=== PATIENT | female | born 1955 | race Caucasian/White ===

== ENCOUNTER 2022-10-19 14:05 | Inpatient (IN) ==
[2022-10-19 15:24] LABS: Basophils # (auto) 0.07 K/uL (0-0.2); Basophils % (auto) 1.2 %; Eosinophils # (auto) 0.13 K/uL (0-0.50); Eosinophils % (auto) 2.2 %; Hematocrit (blood only) 36.6 % (37.0-47.0); Hemoglobin 12.6 g/dl (12.0-16.0); Immature Granulocytes # (auto) 0.01 K/uL (0.01-0.20); Immature Granulocytes % (auto) 0.2 %; Lymphocytes # (auto) 2.43 K/uL (1.2-3.4); Mean Corpuscular Hemoglobin 30.4 pg (25.0-34.0); Mean Corpuscular Hgb Conc 34.4 g/dL (32.0-36.0); Mean Corpuscular Volume 88.4 fL (80.0-100.0); Mean Platelet Volume 9.3 fL (9.4-12.4); Monocytes # (auto) 0.34 K/uL (0.11-0.59); Monocytes % (auto) 5.7 %; Neutrophils # (auto) 2.94 K/uL (1.40-6.50); Neutrophils % (auto) 49.7 %; Platelet Count 202 K/uL (130-400); RDW Coefficient of Variation 13.5 % (11.5-14.5); Red Blood Count 4.14 M/uL (4.20-5.40); White Blood Count 5.92 K/ul (4.8-10.8)
[2022-10-19 15:38] LABS: Partial Thromboplastin Ratio 0.9; Partial Thromboplastin Time 25.3 Seconds (21.0-31.0); Prothrombin Time 10.4 Seconds (9.0-12.0)
--- NOTE | 2022-10-19 16:01 | XRay Report ---
XR chest 1V portable HISTORY: Shortness of breath. COMPARISON: None. FINDINGS: No pneumothorax. No pleural effusions. Small left basilar linear densities favor subsegment al atelectasis or scarring. Otherwise, the lungs are clear. No evidence for pulmonary edema. There is mild eventration of the right hemidiaphragm. The heart is top normal in size. Degenerative changes n oted within the shoulders. IMPRESSION: No acute process. ACT 112: Negative or not required by law. Electronically signed by: Feliciano Vera M.D. 10/19/2022 4:00 PM
[2022-10-19] MEDS ORDERED: LORazepam 2 MG/1 ML VIAL IV STA (16:10)
--- NOTE | 2022-10-19 16:29 | Emergency Department Note ---
Impression & Plan Seizure, Anxiety, Depression with suicidal ideation ED Provider Note NAME: SYED OLIVER AGE: 67 SEX: F : 1955 ARRIVES VIA: Walk-In INFORMANT: Patient, the patient's daughter ED PROVIDER(S): Jagdish Ron DO CHIEF COMPLAINT: Seizure HPI: The patient is a 67-year-old female who presented to the emergency department for an evaluation after having a possible seizure. The patient has a small bite chris to her left lower lip. There was no witnessed seizure. The patient states that she was on the ground and became very paralyzed and could not move. She denies having any nausea or vomiting she does complain of a headache. She also complains of some neck pain. The patient has a long history of anxiety. For about 4 years she has been having a decline according to her family members. She was noted to have some changes in her personality as well as severe anxiety. ROS: See above HPI for pertinent positives & negatives. A total of 10 systems reviewed and were otherwise negative. PAST MEDICAL HISTORY: See Below PAST SURGICAL HISTORY: See Below FAMILY HISTORY: See Below SOCIAL HISTORY: See Below HOME MEDICATIONS: See Below ALLERGIES: See Below VITALS: See Below PHYSICAL EXAMINATION: GENERAL: Patient is awake and alert. She is somewhat anxious appearing. She appears to be guarded. EYES: The conjunctivae are clear. The pupils are round and reactive. EARS, NOSE, MOUTH AND THROAT: The nose is without any evidence of any deformity. Mucous membranes are moist. Small bite was noted to the left lower lip. NECK: The neck is nontender and supple. RESPIRATORY: Normal respiratory effort is noted there is no evidence of wheezing rhonchi or rales CARDIOVASCULAR: Regular rate and rhythm noted there no murmurs rubs or gallops normal S1 normal S2. GASTROINTESTINAL: The abdomen is soft. Abdomen is nontender. MUSCULOSKELETAL/EXTREMITIES: There is no evidence of gross deformity full range of motion is noted in the hips and shoulders. SKIN: There is no obvious evidence of any rash. There are no petechiae, pallor or cyanosis noted. NEUROLOGIC: Patient is awake alert and oriented x3 strength is symmetric patellar reflexes are 2+ bilaterally PSYCH: The patient makes good eye contact mostly evaluation. She is currently denying any suicidal ideation. She appears anxious and guarded. MEDICAL DECISION MAKING: The patient is a 67-year-old female who presented to the emergency department for an evaluation. The patient initially described episodes that she thought could have been related to a seizure. The patient did not have any reported seizure activity. She had a normal neurologic work-up in the emergency department. Her loved one was also concerned because she is been having problems with anxiety as well as suicidal ideation. This was reported after my initial evaluation of the patient. At this time I do feel the patient is medic ally cleared. She was evaluated by the mental health rn case manager hospice. The patient was treated with IV Ativan. The patient was signed out to Dr. Acuna at change of shift. Please see his note for continuation of care and further disposition. Triage Nursing notes reviewed. Prior medical records reviewed Vital Signs: reviewed and remarkable for no significant abnormalities Differential diagnosis: Cardiac ischemia, aortic dissection, pulmonary embolism, pneumothorax, pneumonia, pericarditis, myocarditis, esophageal rupture, GERD, cholecystitis, pancreatitis, musculoskeletal, as well as other pathologies. ER treatment provided: See below Diagnostics interpreted by me: ECG: EKG was obtained in the emergency department. My interpretation is normal sinus rhythm at 80 bpm. There is no ectopy. There is no acute ST segment abnormalities noted. No previous tracing was available. Cardiac Monitoring: An order was placed for continuous cardiac monitoring. The monitor shows a rate of 85 bpm with sinus rhythm. Laboratory studies: As stated above and show below. Imaging studies: See below. Radiographic imaging was reviewed by myself Consultation(s): none Past Med/Surg History Medical History No pertinent family history No pertinent past medical history Surgical History No pertinent past surgical history Social History Smoking Status: Never smoker Feels Safe at Home: Yes Gender Identity: Female Allergies Allergies Allergy/AdvReac Type Severity Reaction Status Date / Time morphine Allergy Vomiting Verified 10/19/22 19:42 prochlorperazine Allergy cant hold Verified 10/19/22 19:42 [From Compazine] head up or talk Home Meds Home Medications Medication Instructions Recorded Confirmed alprazolam 1 mg tablet 1 mg PO TID PRN Anxiety 10/19/22 10/19/22 atorvastatin 40 mg tablet 40 mg PO DAILY 10/19/22 10/19/22 benzonatate 100 mg capsule 100 mg PO TID PRN Cough 10/19/22 10/19/22 celecoxib 200 mg capsule 200 mg PO BID 10/19/22 10/19/22 duloxetine 60 mg capsule,delayed 60 mg PO DAILY 10/19/22 10/19/22 release fexofenadine 180 mg tablet 180 mg PO DAILY PRN allergies 10/19/22 10/19/22 hydrocodone 5 mg-acetaminophen 325 1 tab PO Q6 PRN Pain, Severe 10/19/22 10/19/22 mg tablet hydroxyzine HCl 50 mg tablet 50 mg PO TID 10/19/22 10/19/22 levocetirizine 5 mg tablet 5 mg PO DAILY 10/19/22 10/19/22 lurasidone 20 mg tablet (Latuda) 20 mg PO QAM 10/19/22 10/19/22 omeprazole 40 mg capsule,delayed 40 mg PO DAILYBB 10/19/22 10/19/22 release oxcarbazepine 300 mg tablet 300 mg PO BID 10/19/22 10/19/22 topiramate 50 mg tablet 50 mg PO DAILY 10/19/22 10/19/22 trazodone 100 mg tablet 200 mg PO HS 10/19/22 10/19/22 Results & Data (ED) Vital Signs Vital Signs - 24 hr 10/19/22 14:06 10/19/22 16:42 10/19/22 19:07 Temperature 36.8 C Temperature Source Temporal Artery Scan Pulse Rate 85 Pulse Rate [Apical] 85 Pulse Rate from SpO2 Sensor Respiratory Rate 20 18 Respiratory Effort / Characteristics Non-Labored Spontaneous Non-Labored Spontaneous Non-Labored Spontaneous Respiratory Depth Normal Normal Blood Pressure 134/81 Blood Pressure Mean 98 Pulse Oximetry 96 93 Oxygen Delivery Method Room Air Room Air Room Air Sepsis Recent Fever Within 48 Hours No Sepsis New/Unexplained Change in Mental Status No Sepsis Action Taken by Nursing No Action Required 10/19/22 19:06 Temperature Temperature Source Pulse Rate Pulse Rate [Apical] Pulse Rate from SpO2 Sensor 80 Respiratory Rate Respiratory Effort / Characteristics Respiratory Depth Blood Pressure 143/79 H Blood Pressure Mean 100 Pulse Oximetry 98 Oxygen Delivery Method Sepsis Recent Fever Within 48 Hours Sepsis New/Unexplained Change in Mental Status Sepsis Action Taken by Long Term Medications Current Medication List: was personally reviewed by me Laboratory Data Attestation: I reviewed the patient's lab results. 10/19/22 15:10 10/19/22 15:10 Lab Results 10/19/22 10/19/22 10/19/22 Range/Units 15:10 15:10 15:10 WBC 5.92 (4.8-10.8) K/ul RBC 4.14 L (4.20-5.40) M/uL Hgb 12.6 (12.0-16.0) g/dl Hct 36.6 L (37.0-47.0) % MCV 88.4 (80.0-100.0) fL MCH 30.4 (25.0-34.0) pg MCHC 34.4 (32.0-36.0) g/dL RDW Std Deviation 44.0 (36.4-46.3) fL RDW Coeff of Zonia 13.5 (11.5-14.5) % Plt Count 202 (130-400) K/uL MPV 9.3 L (9.4-12.4) fL Immature Gran % (Auto) 0.2 % Neut % (Auto) 49.7 % Lymph % (Auto) 41.0 % [place] % (Auto) 5.7 % Eos % (Auto) 2.2 % Baso % (Auto) 1.2 % Neut # (Auto) 2.94 (1.40-6.50) K/uL Lymph # (Auto) 2.43 (1.2-3.4) K/uL [place] # (Auto) 0.34 (0.11-0.59) K/uL Eos # (Auto) 0.13 (0-0.50) K/uL Baso # (Auto) 0.07 (0-0.2) K/uL Immature Gran # (Auto) 0.01 (0.01-0.20) K/uL PT 10.4 (9.0-12.0) Seconds INR 1.0 (0.9-1.1) APTT 25.3 (21.0-31.0) Seconds PTT Ratio 0.9 Sodium 140 (136-145) mmol/L Potassium 4.0 (3.5-5.1) mmol/L Chloride 110 H (98-107) mmol/L Carbon Dioxide 23 (21-32) mmol/L Anion Gap 7 (3-11) BUN 21 (6-23) mg/dl Creatinine 0.99 (0.6-1.2) mg/dl Est Cr Clr Drug Dosing Not Reportable Est GFR ( Amer) 67.4 ml/min Est GFR (Non-Af Amer) 58.1 ml/min BUN/Creatinine Ratio 21.2 H (10-20) Glucose 113 H (70-99(Fasting)) mg/dl Calcium 9.2 (8.5-10.1) mg/dl Magnesium 1.9 (1.7-2.4) mg/dl Total Bilirubin 0.3 (0.2-1.0) mg/dl AST 12 L (13-39) U/L ALT 9 (7-52) U/L Alkaline Phosphatase 75 (34-104) U/L Troponin I High Sens (0-14) pg/ml Total Protein 6.4 (6.0-8.3) gm/dl Albumin 3.9 (3.4-5.0) gm/dl Globulin 2.5 (2.5-4.0) gm/dl Albumin/Globulin Ratio 1.6 (0.9-2) Urine Color Urine Appearance (Clear) Urine pH (4.5-7.5) Ur Specific [place] (1.000-1.030) Urine Protein (Negative) Urine Glucose (UA) (Negative) Urine Ketones (Negative) Urine Blood (Negative) Urine Nitrite (Negative) Urine Bilirubin (Negative) Urine Urobilinogen (Negative) Ur Leukocyte Esterase (Negative) Urine WBC (Auto) (0-5) /hpf Urine RBC (Auto) (0-4) /hpf U Hyaline Cast (Auto) (0-5) /lpf U Epithel Cells (Auto) (0-5) /lpf Urine Bacteria (Auto) (Negative) Calcium Oxalate Crystal (None Prsent) Amorphous Sediment (None Prsent) Urine Yeast Urine Opiates Screen (Neg) Ur Methadone, Qual (Neg) Urine Barbiturates (Neg) Ur Phencyclidine (PCP) (Neg) U Amphetamin/Meth Scrn (Neg) MDMA (Ecstasy) Screen (Neg) U Benzodiazepines Scrn (Neg) Ur Cocaine Metabolite (Neg) U Marijuana (THC) Screen (Neg) Ethyl Alcohol mg/dL (<10.0) mg/dl SARS-CoV-2, RNA, NAAT (NEGATIVE) 10/19/22 10/19/22 10/19/22 Range/Units 15:15 16:15 16:15 WBC (4.8-10.8) K/ul RBC (4.20-5.40) M/uL Hgb (12.0-16.0) g/dl Hct (37.0-47.0) % MCV (80.0-100.0) fL MCH (25.0-34.0) pg MCHC (32.0-36.0) g/dL RDW Std Deviation (36.4-46.3) fL RDW Coeff of Zonia (11.5-14.5) % Plt Count (130-400) K/uL MPV (9.4-12.4) fL Immature Gran % (Auto) % Neut % (Auto) % Lymph % (Auto) % [place] % (Auto) % Eos % (Auto) % Baso % (Auto) % Neut # (Auto) (1.40-6.50) K/uL Lymph # (Auto) (1.2-3.4) K/uL [place] # (Auto) (0.11-0.59) K/uL Eos # (Auto) (0-0.50) K/uL Baso # (Auto) (0-0.2) K/uL Immature Gran # (Auto) (0.01-0.20) K/uL PT (9.0-12.0) Seconds INR (0.9-1.1) APTT (21.0-31.0) Seconds PTT Ratio Sodium (136-145) mmol/L Potassium (3.5-5.1) mmol/L Chloride (98-107) mmol/L Carbon Dioxide (21-32) mmol/L Anion Gap (3-11) BUN (6-23) mg/dl Creatinine (0.6-1.2) mg/dl Est Cr Clr Drug Dosing Est GFR ( Amer) ml/min Est GFR (Non-Af Amer) ml/min BUN/Creatinine Ratio (10-20) Glucose (70-99(Fasting)) mg/dl Calcium (8.5-10.1) mg/dl Magnesium (1.7-2.4) mg/dl Total Bilirubin (0.2-1.0) mg/dl AST (13-39) U/L ALT (7-52) U/L Alkaline Phosphatase (34-104) U/L Troponin I High Sens 4.5 (0-14) pg/ml Total Protein (6.0-8.3) gm/dl Albumin (3.4-5.0) gm/dl Globulin (2.5-4.0) gm/dl Albumin/Globulin Ratio (0.9-2) Urine Color Yellow Urine Appearance Cloudy A (Clear) Urine pH 8.0 H (4.5-7.5) Ur Specific [place] 1.017 (1.000-1.030) Urine Protein Negative (Negative) Urine Glucose (UA) Negative (Negative) Urine Ketones Negative (Negative) Urine Blood Negative (Negative) Urine Nitrite Negative (Negative) Urine Bilirubin Negative (Negative) Urine Urobilinogen Negative (Negative) Ur Leukocyte Esterase Trace H (Negative) Urine WBC (Auto) 1-5 (0-5) /hpf Urine RBC (Auto) 0-4 (0-4) /hpf U Hyaline Cast (Auto) 1-5 (0-5) /lpf U Epithel Cells (Auto) >30 H (0-5) /lpf Urine Bacteria (Auto) 1+ H (Negative) Calcium Oxalate Crystal Present A (None Prsent) Amorphous Sediment Present A (None Prsent) Urine Yeast Not Reportable Urine Opiates Screen Neg (Neg) Ur Methadone, Qual Neg (Neg) Urine Barbiturates Neg (Neg) Ur Phencyclidine (PCP) Neg (Neg) U Amphetamin/Meth Scrn Neg (Neg) MDMA (Ecstasy) Screen Neg (Neg) U Benzodiazepines Scrn Pos H (Neg) Ur Cocaine Metabolite Neg (Neg) U Marijuana (THC) Screen Neg (Neg) Ethyl Alcohol mg/dL (<10.0) mg/dl SARS-CoV-2, RNA, NAAT (NEGATIVE) 10/19/22 10/19/22 Range/Units 20:40 21:08 WBC (4.8-10.8) K/ul RBC (4.20-5.40) M/uL Hgb (12.0-16.0) g/dl Hct (37.0-47.0) % MCV (80.0-100.0) fL MCH (25.0-34.0) pg MCHC (32.0-36.0) g/dL RDW Std Deviation (36.4-46.3) fL RDW Coeff of Zonia (11.5-14.5) % Plt Count (130-400) K/uL MPV (9.4-12.4) fL Immature Gran % (Auto) % Neut % (Auto) % Lymph % (Auto) % [place] % (Auto) % Eos % (Auto) % Baso % (Auto) % Neut # (Auto) (1.40-6.50) K/uL Lymph # (Auto) (1.2-3.4) K/uL [place] # (Auto) (0.11-0.59) K/uL Eos # (Auto) (0-0.50) K/uL Baso # (Auto) (0-0.2) K/uL Immature Gran # (Auto) (0.01-0.20) K/uL PT (9.0-12.0) Seconds INR (0.9-1.1) APTT (21.0-31.0) Seconds PTT Ratio Sodium (136-145) mmol/L Potassium (3.5-5.1) mmol/L Chloride (98-107) mmol/L Carbon Dioxide (21-32) mmol/L Anion Gap (3-11) BUN (6-23) mg/dl Creatinine (0.6-1.2) mg/dl Est Cr Clr Drug Dosing Est GFR ( Amer) ml/min Est GFR (Non-Af Amer) ml/min BUN/Creatinine Ratio (10-20) Glucose (70-99(Fasting)) mg/dl Calcium (8.5-10.1) mg/dl Magnesium (1.7-2.4) mg/dl Total Bilirubin (0.2-1.0) mg/dl AST (13-39) U/L ALT (7-52) U/L Alkaline Phosphatase (34-104) U/L Troponin I High Sens (0-14) pg/ml Total Protein (6.0-8.3) gm/dl Albumin (3.4-5.0) gm/dl Globulin (2.5-4.0) gm/dl Albumin/Globulin Ratio (0.9-2) Urine Color Urine Appearance (Clear) Urine pH (4.5-7.5) Ur Specific [place] (1.000-1.030) Urine Protein (Negative) Urine Glucose (UA) (Negative) Urine Ketones (Negative) Urine Blood (Negative) Urine Nitrite (Negative) Urine Bilirubin (Negative) Urine Urobilinogen (Negative) Ur Leukocyte Esterase (Negative) Urine WBC (Auto) (0-5) /hpf Urine RBC (Auto) (0-4) /hpf U Hyaline Cast (Auto) (0-5) /lpf U Epithel Cells (Auto) (0-5) /lpf Urine Bacteria (Auto) (Negative) Calcium Oxalate Crystal (None Prsent) Amorphous Sediment (None Prsent) Urine Yeast Urine Opiates Screen (Neg) Ur Methadone, Qual (Neg) Urine Barbiturates (Neg) Ur Phencyclidine (PCP) (Neg) U Amphetamin/Meth Scrn (Neg) MDMA (Ecstasy) Screen (Neg) U Benzodiazepines Scrn (Neg) Ur Cocaine Metabolite (Neg) U Marijuana (THC) Screen (Neg) Ethyl Alcohol mg/dL < 10.0 (<10.0) mg/dl SARS-CoV-2, RNA, NAAT NEGATIVE (NEGATIVE) Administered Medications Discontinued Medications Lorazepam (Lorazepam 2 Mg/1 Ml Vial) 1 mg IV NOW STA Stop: 10/19/22 16:11 Last Admin: 10/19/22 16:23 Dose: 1 mg Documented By: KT Imaging Data Radiologist's Impression: Chest X-Ray 10/19/22 14:41 XR chest 1V portable HISTORY: Shortness of breath. COMPARISON: None. FINDINGS: No pneumothorax. No pleural effusions. Small left basilar linear densities favor subsegmental atelectasis or scarring. Otherwise, the lungs are clear. No evidence for pulmonary edema. There is mild eventration of the right hemidiaphragm. The heart is top normal in size. Degenerative changes noted within the shoulders. IMPRESSION: No acute process. ACT 112: Negative or not required by law. Electronically signed by: Feliciano Vera M.D. 10/19/2022 4:[address] 10/19/22 16:[address] DOSE: HISTORY: Seizure. TECHNIQUE: Multiaxial CT images of the cervical spine were performed and reformatted in the sagittal and coronal plane without the use of contrast. A dose lowering technique was utilized adhering to the principles of ALARA. COMPARISON: None. FINDINGS: No fractures. No subluxation. Prevertebral soft tissues and the C1-C2 interval are intact. No pneumothorax. IMPRESSION: No fractures within the cervical spine. ACT 112: Negative or not required by law. Electronically signed by: Feliciano Vera M.D. 10/19/2022 5:[address] 10/19/22 16:[address] DOSE: 1038.05 mGy.cm HISTORY: Seizure. TECHNIQUE: Multiaxial CT images of the head were performed without the use of in travenous contrast. Automated exposure control was utilized for this study. A dose lowering technique was utilized adhering to the principles of ALARA. Comparison: None. Findings: The paranasal sinuses and mastoid air cells are clear. The calvarium and skull base are intact. There is no mass, hematoma, midline shift, acute infarct. White matter hypodensity is nonspecific but suggestive of microvascular ischemic change. The ventricles and sulci demonstrate mild age-related involutional changes. Impression: No acute intracranial abnormality. ACT 112: Negative or not required by law. Electronically signed by: Feliciano Vera M.D. 10/19/2022 5:14 PM Discharge Plan Visit Data Chief Complaint: Fall Stated Complaint: FALL, SOB ED Provider: Jagdish Ron Discharge Problem: Seizure, Anxiety, Depression with suicidal ideation Patient Disposition: Still a Patient Forms Stand Alone Forms: [facility], Suicide Prevention Resources Prescriptions Prescriptions: No Action omeprazole 40 mg capsule,delayed release(DR/EC) 40 mg PO DAILYBB trazodone 100 mg tablet 200 mg PO HS topiramate 50 mg tablet 50 mg PO DAILY duloxetine 60 mg capsule,delayed release(DR/EC) 60 mg PO DAILY Latuda 20 mg tablet 20 mg PO QAM atorvastatin 40 mg tablet 40 mg PO DAILY alprazolam 1 mg tablet 1 mg PO TID PRN (Reason: Anxiety) levocetirizine 5 mg tablet 5 mg PO DAILY celecoxib 200 mg capsule 200 mg PO BID Rx Instructions: take with food hydrocodone-acetaminophen 5-325 mg tablet 1 tab PO Q6 PRN (Reason: Pain, Severe) benzonatate 100 mg capsule 100 mg PO TID PRN (Reason: Cough) hydroxyzine HCl 50 mg tablet 50 mg PO TID oxcarbazepine 300 mg tablet 300 mg PO BID fexofenadine 180 mg Tablet 180 mg PO DAILY PRN (Reason: allergies) Referrals Referrals: PCP,NO [Physician] -
[2022-10-19 16:47] LABS: Appearance Urine Cloudy (Clear); Bilirubin Urine Negative (Negative); Blood Urine Negative (Negative); Color Urine Yellow; Epithelial Cell Urine Auto >30 /lpf (0-5); Glucose Urine UA Negative (Negative); Ketones Urine Negative (Negative); Leukocyte Esterase Urine Trace (Negative); Nitrite Urine Negative (Negative); Protein Urine Negative (Negative); Specific Gravity Urine 1.017 (1.000-1.030); Urobilinogen Urine Negative (Negative)
[2022-10-19 16:54] LABS: Albumin Level 3.9 gm/dl (3.4-5.0); Anion Gap 7 (3-11); Bilirubin,Total 0.3 mg/dl (0.2-1.0); Calcium 9.2 mg/dl (8.5-10.1); Carbon Dioxide 23 mmol/L (21-32); Chloride 110 mmol/L (98-107); Magnesium 1.9 mg/dl (1.7-2.4); Sodium 140 mmol/L (136-145)
[2022-10-19 17:00] LABS: RBC Urine Automated 0-4 /hpf (0-4)
[2022-10-19 17:00] LABS: Alanine Aminotransferase 9 U/L (7-52); Albumin Globulin Ratio 1.6 (0.9-2); Alkaline Phosphatase 75 U/L (34-104); Aspartate Aminotransferase 12 U/L (13-39); BUN Creatinine Ratio 21.2 (10-20); Blood Urea Nitrogen 21 mg/dl (6-23); Est GFR (African American) 67.4 ml/min; Est GFR (Non-African American) 58.1 ml/min; Globulin 2.5 gm/dl (2.5-4.0); Glucose 113 mg/dl (70-99(Fasting)); Total Protein 6.4 gm/dl (6.0-8.3)
[2022-10-19 17:01] LABS: Bacteria Urine Automated 1+ (Negative); Calcium Oxalate Crystals Urine Present (None Prsent)
[2022-10-19 17:02] LABS: Amorphous Sediment Urine Present (None Prsent)
--- NOTE | 2022-10-19 17:19 | CT Scan Report ---
CERVICAL SPINE CT CT DOSE: HISTORY: Seizure. TECHNIQUE: Multiaxial CT images of the cervical spine were performed and reformatted in the sagittal and coronal plane without the use of contrast. A dose lowering technique was utilized adhering to th e principles of ALARA. COMPARISON: None. FINDINGS: No fractures. No subluxation. Prevertebral soft tissues and the C1-C2 interval are intact. No pneumothorax. IMPRESSION: No fractures within the cervical spine. ACT 112: Negative or not required by law. Electronically signed by: Feliciano Vera M.D. 10/19/2022 5:18 PM
[2022-10-19 17:22] LABS: Amphetamines+Metham, Urine Neg (Neg); Barbiturates, Urine Neg (Neg); Benzodiazepine, Urine Pos (Neg); Cocaine, Urine Neg (Neg); MDMA (Ecstacy), Urine Neg (Neg); Methadone, Urine Neg (Neg); Opiate, Urine Neg (Neg); Phencyclidine, Urine Neg (Neg)
--- NOTE | 2022-10-19 17:25 | CT Scan Report ---
HEAD CT NONCONTRAST CT DOSE: 1038.05 mGy.cm HISTORY: Seizure. TECHNIQUE: Multiaxial CT images of the head were performed without the use of intravenous contrast. A utomated exposure control was utilized for this study. A dose lowering technique was utilized adheri ng to the principles of ALARA. Comparison: None. Findings: The paranasal sinuses and mastoid air cells are clear. The calvarium and skull base are int act. There is no mass, hematoma, midline shift, acute infarct. White matter hypodensity is nonspecifi c but suggestive of microvascular ischemic change. The ventricles and sulci demonstrate mild age-rela buster involutional changes. Impression: No acute intracranial abnormality. ACT 112: Negative or not required by law. Electronically signed by: Feliciano Vera M.D. 10/19/2022 5:14 PM
[2022-10-19] MEDS ORDERED: FEXOFENADINE HCL 180 MG TAB PO PRN (23:04)
[2022-10-19] MEDS ORDERED: BENZONATATE 100 MG CAPSULE PO PRN (23:04)
[2022-10-19] MEDS ORDERED: ALPRAZolam 0.5 MG TABLET PO PRN (23:04)
[2022-10-19] MEDS ORDERED: HYDROCODONE/ACETAMOPHEN 5/325MG TAB PO PRN (23:04)
[2022-10-19] MEDS ORDERED: CeleBREX 200 MG CAP PO SCH (23:15)
[2022-10-19] MEDS ORDERED: OXcarbazepine 150 MG TABLET PO SCH (23:15)
[2022-10-20 00:55] LABS: Acetaminophen < 3 ug/ml (10-30); Salicylate < 3.0 mg/dl (3.0-30)
[2022-10-20] MEDS ORDERED: MAGNESIUM HYDROXIDE SUSP 30 ML UDC PO PRN (02:15)
[2022-10-20] MEDS ORDERED: SODIUM CHLORIDE 0.65% NA SOLN 45 ML (OCEAN) PRN (02:15)
--- NOTE | 2022-10-20 03:15 | Emergency Department Note ---
ED Visit Note Psychiatric observation note, the case was turned over to me from Dr. Ron pending admission. Patient was undergoing a bed search. Patient was accepted by [facility] and has been admitted to [facility] at 3:15 AM. Patient ER overnight psychiatric observation. Disposition admit to [facility] Admitting diagnosis is anxiety .
[2022-10-20] MEDS ORDERED: PANTOprazole 40 MG TAB PO SCH (06:30)
[2022-10-20] MEDS ORDERED: NON-FORMULARY MEDICATION (Omeprazole 40 mg capsule,delayed release(DR/EC)) PO SCH (06:30)
--- NOTE | 2022-10-20 07:32 | Electrocardiogram Report ---
Test Reason : Blood Pressure : / mmHG Vent. Rate : 080 BPM Atrial Rate : 080 BPM P-R Int : 158 ms QRS Dur : 086 ms QT Int : 388 ms P-R-T Axes : 054 -32 038 degrees QTc Int : 447 ms Poor data quality, interpretation may be adversely affected Normal sinus rhythm Left axis deviation Poor R wave progression, consider anterior DE vs. lead placement vs. LVH Abnormal ECG No previous ECGs available Confirmed by Cesar Hein ([id number]) on 10/20/2022 7:32:18 AM Referred By: REFERRED SELF Confirmed By:Jj Hein
[2022-10-20] MEDS ORDERED: NON-FORMULARY MEDICATION (Levocetirizine 5 mg tablet) PO SCH (09:00)
[2022-10-20] MEDS ORDERED: CETIRIZINE HCL 10 MG TABLET PO SCH (09:00)
[2022-10-20] MEDS ORDERED: ATORVASTATIN 40 MG TAB PO SCH (09:00)
[2022-10-20] MEDS ORDERED: DULoxetine HCL 60 MG CAP PO SCH (09:00)
[2022-10-20] MEDS ORDERED: hydrOXYzine HCl 25 MG TAB PO SCH (09:00)
[2022-10-20] MEDS ORDERED: LURASIDONE HCL 40 MG TAB PO SCH (09:00)
[2022-10-20] MEDS ORDERED: NON-FORMULARY MEDICATION (Lurasidone [Latuda] 20 mg tablet) PO SCH (09:00)
[2022-10-20] MEDS ORDERED: TOPIRAMATE 50 MG TAB PO SCH (09:00)
[2022-10-20] MEDS: ACETAMINOPHEN 325 MG TAB PO PRN (11:05)
[2022-10-20] MEDS ORDERED: ALPRAZolam 0.5 MG TABLET PO STA (12:02)
[2022-10-20] MEDS ORDERED: ALPRAZolam 0.5 MG TABLET ONE (12:04)
--- NOTE | 2022-10-20 12:15 | History & Physical ---
Date of Service October 20, 2022 Impression / Recommendations Impression Somewhat inconsistent presentation, conceptualized by pt as depression but symptoms primarily suggesting anxiety. 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 Presents as highly emotional and somewhat dramatic at time and almost unconcerned at others. She has difficulty describing other peoples' emotions and experiences. She is preoccupied with abandonment. It appears that she has been assigned a bipolar disorger diagosis in the past, which may well be accurate. However, borderline personality disorder must be considered, as must the possibility of early dementia. (1) Major depressive disorder, recurrent, severe without psychotic features: (2) EVANS (generalized anxiety disorder): Plan All of pt's medications were stopped in the ED, so this could influence how she presents today. Will resume them as it is understood she was taking them and reassess. It is not clear whether the oxcarbazepine and topiramate are intended for psychiatric or neurological symptoms so will establish this before considering changing them. Suicide Risk Level Suicide Risk Level: Low (q15 min observation checks) Risk Factors Assessment Male: No : Yes Do You Have Access To A Gun?: No Health Problems: Yes Mental Health Diagnoses: Yes Protective Factors Assessment Employed: No Psychiatric History Identifying Data SYED OLIVER is a 67-year-old F who currently lives alone in an apartment below that of her daughter and 17 y/o grandson, has a history of anxiety and depression symptoms, and was admitted on 10/20/22 02:15 on a 201 voluntary commitment for assessment of somewhat cryptogenic symptoms that include dramatic seizure-like events. Chief Complaint "I can't do it". History of Present Illness Pt was found on the floor subjectively unable to move. She offers little history or explanation of this, preferring to talk about anxiety. She exhibits a strong tendency to respond to questions with approximate or irrelevant responses that detail various stressors, especially abandonment. Much of her report is internally inconsistent in that she will deny something when asked but later spontaneously endorse the same thing. After having moved from [facility] to [place] with a new over 25 yr ago, she has moved back to the area to be near her daughter. She says she never had any problems befre 25 yr ago when she had a UTI and an episode of delirium that these many years later she can't stop thinking about. She says her marked jaw tremor started then but attributes it to prochlorperazine she took when she was 10 y/o. She speaks as if she has hardly had any psychiatric treatment, yet cites a lot of failed treatment trials. She is unaware of any specific diagnoses. She is unable to name any medications other than "Xanax" and mentions that medication multiple times through the exam as if it's the only thing she takes. In fact, she appears to have been on duloxetine, lurasidone, oxcarbazepine, topiramate, and other medications. She doesn't know the reasons for any other medications so it's not currently clear whether the oxcarbazepine and topiramate are intended for psychiatric use or not. She says her neurologist told her she has some sort of memory disorder but she can't remember the name of it. Past Psychiatric History Previous Psych History: By all appearances she seems to have been in treatment for many years for possible bipolar disorder with an array of medications. However, records to establish this aren't currently available and she in an unreliable historian. Current Psychiatric Diagnosis: Major Depressive Disorder Do You Have Access To A Gun?: No History of Previous Suicide Attempt: No Allergies Allergy/AdvReac Type Severity Reaction Status Date / Time morphine Allergy Vomiting Verified 10/19/22 19:42 prochlorperazine Allergy cant hold Verified 10/19/22 19:42 [From Compazine] head up or talk Home Medications Medication Instructions Recorded Confirmed Type alprazolam 1 mg tablet 1 mg PO TID PRN Anxiety 10/19/22 10/20/22 History atorvastatin 40 mg tablet 40 mg PO DAILY 10/19/22 10/20/22 History benzonatate 100 mg capsule 100 mg PO TID PRN Cough 10/19/22 10/19/22 History celecoxib 200 mg capsule 200 mg PO BID 10/19/22 10/20/22 History duloxetine 60 mg capsule,delayed 60 mg PO DAILY 10/19/22 10/20/22 History release hydrocodone 5 mg-acetaminophen 325 1 tab PO Q6 PRN Pain, Severe 10/19/22 10/19/22 History mg tablet hydroxyzine HCl 50 mg tablet 50 mg PO TID 10/19/22 10/20/22 History levocetirizine 5 mg tablet 5 mg PO DAILY 10/19/22 10/20/22 History lurasidone 20 mg tablet (Latuda) 40 mg PO QAM 10/19/22 10/20/22 History omeprazole 40 mg capsule,delayed 40 mg PO DAILYBB 10/19/22 10/20/22 History release oxcarbazepine 300 mg tablet 300 mg PO BID 10/19/22 10/20/22 History topiramate 50 mg tablet 50 mg PO DAILY 10/19/22 10/20/22 History trazodone 100 mg tablet 200 mg PO HS 10/19/22 10/20/22 History Lactase Enzyme 9,000 units PO ACHS PRN Lactose 10/20/22 10/20/22 History Intolerance Family History Family History of: Doesn't Know Alcohol History Hx of Alcohol Use Over the Past 12 Months: No AUDIT Total Score: 0 Smoking Use Have You Smoked or Used Tobacco Products in the Last 30 Days: No Smoking Status: Never smoker Substance History Hx of Prescription Med Misuse Over the Past 12 Months: No Hx of Over the Counter Med Misuse Over the Past 12 Months: No Hx of Inhalent Misuse Over the Past 12 Months: No Hx of Organic Substance Use Over the Past 12 Months: No Hx of Illegal Substances/Street Drug Use Over Past 12 Months: No Problems as a Result of Past Substance Use: None Identified Personal History Living Arrangements: Apartment Beliefs That Will Affect Care: None Patient History Medical History No pertinent family history No pertinent past medical history Surgical History No pertinent past surgical history Social History Smoking Status: Never smoker Preferred Language: Croatian Communication Ability: Effective Simulation Tech Required: No Beliefs That Will Affect Care: None Feels Safe at Home: Yes Gender Identity: Female Assistive Devices: Cane and Glasses Review of Systems Psychiatric: + hopelessness, + abnormal sleep pattern, + anxiety and + difficulty concentrating Physical Exam Psychiatric: Orientation: alert and oriented x 3 Apperance: appropriately dressed Eye Contact: good eye contact Motor Behavior: + EPS hugs herself and rocks back and forth at times. Has a rhythmic masticatory jaw tremor that disappears completely at some points during the exam Vague, impressionistic Affect: + anxious affect Mood: + anxious mood Thought Process: + circumstantial thought process, + tangential thought process and + perseveration Thought Content: + preoccupation preoccupied with alprazolam Suicidal Thoughts: denies suicidal thoughts Homicidal Thoughts: denies homicidal thoughts Hallucinations: no auditory hallucinations and no visual hallucinations memory appears to be selective, with good recall of detail surrounding valued things but very poor recall of detail of things that don't interest her Estimated Intelligence: average estimated intelligence Insight: + poor insight Judgement: + limited judgement Vital Signs (Past 24 Hours): Last Vital Signs Temp 37.1 C 10/20/22 03:53 Pulse 73 10/20/22 03:53 Resp 16 10/20/22 03:53 BP 135/82 10/20/22 03:53 Pulse Ox 98 10/20/22 03:53 O2 Del Method 10/20/22 03:53 Results & Data ([facility]) Laboratory Results Laboratory Results - last 24 hr 10/19/22 10/19/22 10/19/22 15:10 15:10 15:10 WBC 5.92 RBC 4.14 L Hgb 12.6 Hct 36.6 L MCV 88.4 MCH 30.4 MCHC 34.4 RDW Std Deviation 44.0 RDW Coeff of Zonia 13.5 Plt Count 202 MPV 9.3 L Immature Gran % (Auto) 0.2 Neut % (Auto) 49.7 Lymph % (Auto) 41.0 [place] % (Auto) 5.7 Eos % (Auto) 2.2 Baso % (Auto) 1.2 Neut # (Auto) 2.94 Lymph # (Auto) 2.43 [place] # (Auto) 0.34 Eos # (Auto) 0.13 Baso # (Auto) 0.07 Immature Gran # (Auto) 0.01 PT 10.4 INR 1.0 APTT 25.3 PTT Ratio 0.9 Sodium 140 Potassium 4.0 Chloride 110 H Carbon Dioxide 23 Anion Gap 7 BUN 21 Creatinine 0.99 Est Cr Clr Drug Dosing Not Reportable Est GFR ( Amer) 67.4 Est GFR (Non-Af Amer) 58.1 BUN/Creatinine Ratio 21.2 H Glucose 113 H Calcium 9.2 Magnesium 1.9 Total Bilirubin 0.3 AST 12 L ALT 9 Alkaline Phosphatase 75 Troponin I High Sens Total Protein 6.4 Albumin 3.9 Globulin 2.5 Albumin/Globulin Ratio 1.6 TSH Urine Color Urine Appearance Urine pH Ur Specific [place] Urine Protein Urine Glucose (UA) Urine Ketones Urine Blood Urine Nitrite Urine Bilirubin Urine Urobilinogen Ur Leukocyte Esterase Urine WBC (Auto) Urine RBC (Auto) U Hyaline Cast (Auto) U Epithel Cells (Auto) Urine Bacteria (Auto) Calcium Oxalate Crystal Amorphous Sediment Urine Yeast Salicylates Urine Opiates Screen Ur Methadone, Qual Acetaminophen Urine Barbiturates Ur Phencyclidine (PCP) U Amphetamin/Meth Scrn MDMA (Ecstasy) Screen U OH-Alprazolam Confrm U Benzodiazepines Scrn 7-Amino Clonazepam Ur Nordiazepam Confirm U OH-ethylflurazepam U Lorazepam Cnf GC/MS U Oxazepam Confm GC/MS Ur Temazepam Confirm U OH-Triazolam Confirm U OH-Midazolam Confirm Ur Cocaine Metabolite U Marijuana (THC) Screen Drug Screen Comment Ethyl Alcohol mg/dL SARS-CoV-2, RNA, NAAT 10/19/22 10/19/22 10/19/22 15:15 15:19 16:15 WBC RBC Hgb Hct MCV MCH MCHC RDW Std Deviation RDW Coeff of Zonia Plt Count MPV Immature Gran % (Auto) Neut % (Auto) Lymph % (Auto) [place] % (Auto) Eos % (Auto) Baso % (Auto) Neut # (Auto) Lymph # (Auto) [place] # (Auto) Eos # (Auto) Baso # (Auto) Immature Gran # (Auto) PT INR APTT PTT Ratio Sodium Potassium Chloride Carbon Dioxide Anion Gap BUN Creatinine Est Cr Clr Drug Dosing Est GFR ( Amer) Est GFR (Non-Af Amer) BUN/Creatinine Ratio Glucose Calcium Magnesium Total Bilirubin AST ALT Alkaline Phosphatase Troponin I High Sens 4.5 Total Protein Albumin Globulin Albumin/Globulin Ratio TSH 1.164 Urine Color Urine Appearance Urine pH Ur Specific [place] Urine Protein Urine Glucose (UA) Urine Ketones Urine Blood Urine Nitrite Urine Bilirubin Urine Urobilinogen Ur Leukocyte Esterase Urine WBC (Auto) Urine RBC (Auto) U Hyaline Cast (Auto) U Epithel Cells (Auto) Urine Bacteria (Auto) Calcium Oxalate Crystal Amorphous Sediment Urine Yeast Salicylates Urine Opiates Screen Neg Ur Methadone, Qual Neg Acetaminophen Urine Barbiturates Neg Ur Phencyclidine (PCP) Neg U Amphetamin/Meth Scrn Neg MDMA (Ecstasy) Screen Neg U OH-Alprazolam Confrm U Benzodiazepines Scrn Pos H 7-Amino Clonazepam Ur Nordiazepam Confirm U OH-ethylflurazepam U Lorazepam Cnf GC/MS U Oxazepam Confm GC/MS Ur Temazepam Confirm U OH-Triazolam Confirm U OH-Midazolam Confirm Ur Cocaine Metabolite Neg U Marijuana (THC) Screen Neg Drug Screen Comment Ethyl Alcohol mg/dL SARS-CoV-2, RNA, NAAT 10/19/22 10/19/22 10/19/22 16:15 16:15 20:40 WBC RBC Hgb Hct MCV MCH MCHC RDW Std Deviation RDW Coeff of Zonia Plt Count MPV Immature Gran % (Auto) Neut % (Auto) Lymph % (Auto) [place] % (Auto) Eos % (Auto) Baso % (Auto) Neut # (Auto) Lymph # (Auto) [place] # (Auto) Eos # (Auto) Baso # (Auto) Immature Gran # (Auto) PT INR APTT PTT Ratio Sodium Potassium Chloride Carbon Dioxide Anion Gap BUN Creatinine Est Cr Clr Drug Dosing Est GFR ( Amer) Est GFR (Non-Af Amer) BUN/Creatinine Ratio Glucose Calcium Magnesium Total Bilirubin AST ALT Alkaline Phosphatase Troponin I High Sens Total Protein Albumin Globulin Albumin/Globulin Ratio TSH Urine Color Yellow Urine Appearance Cloudy A Urine pH 8.0 H Ur Specific [place] 1.017 Urine Protein Negative Urine Glucose (UA) Negative Urine Ketones Negative Urine Blood Negative Urine Nitrite Negative Urine Bilirubin Negative Urine Urobilinogen Negative Ur Leukocyte Esterase Trace H Urine WBC (Auto) 1-5 Urine RBC (Auto) 0-4 U Hyaline Cast (Auto) 1-5 U Epithel Cells (Auto) >30 H Urine Bacteria (Auto) 1+ H Calcium Oxalate Crystal Present A Amorphous Sediment Present A Urine Yeast Not Reportable Salicylates Urine Opiates Screen Ur Methadone, Qual Acetaminophen Urine Barbiturates Ur Phencyclidine (PCP) U Amphetamin/Meth Scrn MDMA (Ecstasy) Screen U OH-Alprazolam Confrm Pending U Benzodiazepines Scrn 7-Amino Clonazepam Pending Ur Nordiazepam Confirm Pending U OH-ethylflurazepam Pending U Lorazepam Cnf GC/MS Pending U Oxazepam Confm GC/MS Pending Ur Temazepam Confirm Pending U OH-Triazolam Confirm Pending U OH-Midazolam Confirm Pending Ur Cocaine Metabolite U Marijuana (THC) Screen Drug Screen Comment Pending Ethyl Alcohol mg/dL SARS-CoV-2, RNA, NAAT NEGATIVE 10/19/22 10/20/22 21:08 00:12 WBC RBC Hgb Hct MCV MCH MCHC RDW Std Deviation RDW Coeff of Zonia Plt Count MPV Immature Gran % (Auto) Neut % (Auto) Lymph % (Auto) [place] % (Auto) Eos % (Auto) Baso % (Auto) Neut # (Auto) Lymph # (Auto) [place] # (Auto) Eos # (Auto) Baso # (Auto) Immature Gran # (Auto) PT INR APTT PTT Ratio Sodium Potassium Chloride Carbon Dioxide Anion Gap BUN Creatinine Est Cr Clr Drug Dosing Est GFR ( Amer) Est GFR (Non-Af Amer) BUN/Creatinine Ratio Glucose Calcium Magnesium Total Bilirubin AST ALT Alkaline Phosphatase Troponin I High Sens Total Protein Albumin Globulin Albumin/Globulin Ratio TSH Urine Color Urine Appearance Urine pH Ur Specific [place] Urine Protein Urine Glucose (UA) Urine Ketones Urine Blood Urine Nitrite Urine Bilirubin Urine Urobilinogen Ur Leukocyte Esterase Urine WBC (Auto) Urine RBC (Auto) U Hyaline Cast (Auto) U Epithel Cells (Auto) Urine Bacteria (Auto) Calcium Oxalate Crystal Amorphous Sediment Urine Yeast Salicylates < 3.0 L Urine Opiates Screen Ur Methadone, Qual Acetaminophen < 3 L Urine Barbiturates Ur Phencyclidine (PCP) U Amphetamin/Meth Scrn MDMA (Ecstasy) Screen U OH-Alprazolam Confrm U Benzodiazepines Scrn 7-Amino Clonazepam Ur Nordiazepam Confirm U OH-ethylflurazepam U Lorazepam Cnf GC/MS U Oxazepam Confm GC/MS Ur Temazepam Confirm U OH-Triazolam Confirm U OH-Midazolam Confirm Ur Cocaine Metabolite U Marijuana (THC) Screen Drug Screen Comment Ethyl Alcohol mg/dL < 10.0 SARS-CoV-2, RNA, NAAT Current Inpatient Medications Current Inpatient Medications: Current Inpatient Medications Acetaminophen (Acetaminophen 325 Mg Tab) 650 mg PO Q4H PRN PRN Reason: Headache or Minor Fever Stop: 11/19/22 02:14 Last Admin: 10/20/22 11:05 Dose: 650 mg Al Hydrox/Mg Hydrox/Simethicone (Aluminum/Magnesium Susp 30 Ml Udc) 30 ml PO Q4H PRN PRN Reason: GI Upset Stop: 11/19/22 02:14 Magnesium Hydroxide (Magnesium Hydroxide Susp 30 Ml Udc) 30 ml PO DAILY PRN PRN Reason: Constipation Stop: 11/19/22 02:14 Sodium Chloride (Sodium Chloride 0.65% Na Soln 45 Ml ([place])) 1 - 2 sprays NA PRN PRN PRN Reason: Nasal Dryness/Congestion Stop: 11/19/22 02:14
[2022-10-20] MEDS ORDERED: LACTASE 3000 UNIT TAB PO PRN (17:42)
[2022-10-20] MEDS: ALUMINUM/MAGNESIUM SUSP 30 ML UDC PO PRN (17:43)
[2022-10-20] MEDS: DULoxetine HCL 60 MG CAP PO SCH (18:07)
[2022-10-20] MEDS: TOPIRAMATE 50 MG TAB PO SCH (18:08)
[2022-10-20] MEDS: LURASIDONE HCL 40 MG TAB PO SCH (18:08)
[2022-10-20] MEDS ORDERED: LOPERAMIDE HCL 2 MG CAP PO STA ×2 (18:58)
[2022-10-20] MEDS ORDERED: cloNIDine HCL 0.1 MG TAB PO PRN (19:29)
[2022-10-20] MEDS ORDERED: DIPHENOXYLATE/ATROPINE 2.5/0.025MG TAB PO PRN (19:29)
[2022-10-20] MEDS: cloNIDine HCL 0.1 MG TAB PO SCH (20:35)
[2022-10-20] MEDS: CeleBREX 200 MG CAP PO SCH (20:36)
[2022-10-20] MEDS: ALPRAZolam 0.5 MG TABLET PO SCH (20:36)
[2022-10-20] MEDS: OXcarbazepine 150 MG TABLET PO SCH (20:36)
[2022-10-20] MEDS: hydrOXYzine HCl 25 MG TAB PO SCH (20:36)
[2022-10-20] MEDS ORDERED: traZODone HCL 100 MG TAB PO SCH (21:00)
[2022-10-20] MEDS: traZODone HCL 100 MG TAB PO SCH (21:48)
[2022-10-20] MEDS: CETIRIZINE HCL 10 MG TABLET PO SCH (21:48)
--- NOTE | 2022-10-21 07:35 | Psychiatric Progress Note ---
Date of Service October 21, 2022 Impression / Recommendations Impression 10/21/22: Based on vital signs changes and behavioral observations, appears fairly clearly to have started withdrawing from opioids. Toxicology screen was negative for opioid metabolites but bottles were found in her belongings at admission. Remains anxious, needy. Yesterday evening she following me around the unit saying "oh, doctor..." perseveratively. Each time I asked her about this she'd say "why do you think I'm like this?", appearing to have forgotten the previous times we'd descussed that. 10/20/22: Somewhat inconsistent presentation, conceptualized by pt as depression but symptoms primarily suggesting anxiety. 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 Presents as highly emotional and somewhat dramatic at time and almost unconcerned at others. She has difficulty describing other peoples' emotions and experiences. She is preoccupied with abandonment. It appears that she has been assigned a bipolar disorger diagosis in the past, which may well be accurate. However, borderline personality disorder must be considered, as must the possibility of early dementia. (1) Major depressive disorder, recurrent, severe without psychotic features: (2) EVANS (generalized anxiety disorder): Plan 10/21/22: Has been started on clonidine-based opioid withdrawal protocol. Will cautiously increase lurasidone to 60 mg PQM. 10/20/22: All of pt's medications were stopped in the ED, so this could influence how she presents today. Will resume them as it is understood she was taking them and reassess. It is not clear whether the oxcarbazepine and topiramate are intended for psychiatric or neurological symptoms so will establish this before considering changing them. Suicide Risk Level Suicide Risk Level: Moderate (q15 min suicide checks) Risk Factors Assessment Male: No : Yes Do You Have Access To A Gun?: No Health Problems: Yes Mental Health Diagnoses: Yes Substance Use Disorders: Yes Protective Factors Assessment Employed: No Interval History Chief Complaint "[]". Review of Systems Sleep Information Total Hours of Sleep: 7.25 Sleep Comments: Admitted overnight and did not get to bed until early interventionist Meal Information Percent Meal Consumed - Breakfast: 90 Percent Meal Consumed - Lunch: 100 Percent Meal Consumed - Dinner: 90 Subjective Subjective Patient was seen & assessed and interval progress reviewed with [treatment team] [nursing and social work] Physical Exam Psychiatric Orientation: alert and oriented x 3 Apperance: appropriately dressed Eye Contact: good eye contact Motor Behavior: + EPS Affect: + anxious affect Mood: + anxious mood Thought Process: + circumstantial thought process, + tangential thought process and + perseveration Thought Content: + preoccupation Suicidal Thoughts: denies suicidal thoughts Homicidal Thoughts: denies homicidal thoughts Hallucinations: no auditory hallucinations and no visual hallucinations Estimated Intelligence: average estimated intelligence Insight: + poor insight Judgement: + limited judgement Vital Signs (Past 24 Hours) Last Vital Signs Temp 36.9 C 10/21/22 06:30 Pulse 96 H 10/21/22 06:31 Resp 16 10/21/22 06:30 BP 118/73 10/21/22 06:31 Pulse Ox 97 10/20/22 21:51 O2 Del Method 10/20/22 21:51 Results & Data ([facility]) Current Inpatient Medications Current Inpatient Medications: Current Inpatient Medications Acetaminophen (Acetaminophen 325 Mg Tab) 650 mg PO Q4H PRN PRN Reason: Headache or Minor Fever Stop: 11/19/22 02:14 Last Admin: 10/20/22 11:05 Dose: 650 mg Al Hydrox/Mg Hydrox/Simethicone (Aluminum/Magnesium Susp 30 Ml Udc) 30 ml PO Q4H PRN PRN Reason: GI Upset Stop: 11/19/22 02:14 Last Admin: 10/20/22 17:43 Dose: 30 ml Alprazolam (Alprazolam 0.5 Mg Tablet) 1 mg PO TID [facility] Stop: 11/19/22 20:59 Last Admin: 10/20/22 20:36 Dose: 1 mg Atorvastatin Calcium (Atorvastatin 40 Mg Tab) 40 mg PO QAM [facility] Stop: 11/20/22 08:59 Celecoxib (Celebrex 200 Mg Cap) 200 mg PO BID [facility] Stop: 11/19/22 20:59 Last Admin: 10/20/22 20:36 Dose: 200 mg Cetirizine HCl (Cetirizine Hcl 10 Mg Tablet) 10 mg PO HS [facility] Stop: 11/19/22 21:59 Last Admin: 10/20/22 21:48 Dose: 10 mg Clonidine HCl (Clonidine Hcl 0.1 Mg Tab) 0.1 mg PO Q4HWA [facility] Stop: 11/19/22 19:59 Last Admin: 10/20/22 20:35 Dose: 0.1 mg Clonidine HCl (Clonidine Hcl 0.1 Mg Tab) 0.1 mg PO Q2H PRN PRN Reason: For ANY 2 Symptoms Stop: 11/19/22 19:28 Diphenoxylate HCl/Atropine (Diphenoxylate/Atropine 2.5/0.025mg Tab) 1 tab PO Q4H PRN PRN Reason: Abdominal Cramping/Diarrhea Stop: 11/19/22 19:28 Duloxetine HCl (Duloxetine Hcl 60 Mg Cap) 60 mg PO QAM [facility] Stop: 11/19/22 17:29 Last Admin: 10/20/22 18:07 Dose: 60 mg Hydroxyzine HCl (Hydroxyzine Hcl 25 Mg Tab) 50 mg PO TID [facility] Stop: 11/19/22 20:59 Last Admin: 10/20/22 20:36 Dose: 50 mg Lactase (Lactase 3000 Unit Tab) 9,000 units PO ACHS PRN PRN Reason: Lactose Intolerance Stop: 11/19/22 17:41 Lurasidone HCl (Lurasidone Hcl 40 Mg Tab) 40 mg PO DAILY [facility] Stop: 11/19/22 17:44 Last Admin: 10/20/22 18:08 Dose: 40 mg Magnesium Hydroxide (Magnesium Hydroxide Susp 30 Ml Udc) 30 ml PO DAILY PRN PRN Reason: Constipation Stop: 11/19/22 02:14 Oxcarbazepine (Oxcarbazepine 150 Mg Tablet) 300 mg PO BID [facility] Stop: 11/19/22 20:59 Last Admin: 10/20/22 20:36 Dose: 300 mg Sodium Chloride (Sodium Chloride 0.65% Na Soln 45 Ml ([place])) 1 - 2 sprays NA PRN PRN PRN Reason: Nasal Dryness/Congestion Stop: 11/19/22 02:14 Topiramate (Topiramate 50 Mg Tab) 50 mg PO QAM [facility] Stop: 11/19/22 17:44 Last Admin: 10/20/22 18:08 Dose: 50 mg Trazodone HCl (Trazodone Hcl 100 Mg Tab) 200 mg PO HS [facility] Stop: 11/19/22 21:59 Last Admin: 10/20/22 21:48 Dose: 200 mg
[2022-10-21] MEDS: cloNIDine HCL 0.1 MG TAB PO SCH ×4 (09:04→19:59)
[2022-10-21] MEDS: ATORVASTATIN 40 MG TAB PO SCH (09:05)
[2022-10-21] MEDS: CeleBREX 200 MG CAP PO SCH ×2 (09:05→21:07)
[2022-10-21] MEDS: DULoxetine HCL 60 MG CAP PO SCH (09:06)
[2022-10-21] MEDS: TOPIRAMATE 50 MG TAB PO SCH (09:06)
[2022-10-21] MEDS: hydrOXYzine HCl 25 MG TAB PO SCH ×3 (09:06→21:08)
[2022-10-21] MEDS: OXcarbazepine 150 MG TABLET PO SCH ×2 (09:06→21:08)
[2022-10-21] MEDS: LURASIDONE HCL 40 MG TAB PO SCH (09:06)
[2022-10-21] MEDS: ALPRAZolam 0.5 MG TABLET PO SCH ×3 (09:24→21:06)
[2022-10-21] MEDS: traZODone HCL 100 MG TAB PO SCH (21:07)
[2022-10-21] MEDS: CETIRIZINE HCL 10 MG TABLET PO SCH (21:08)
--- NOTE | 2022-10-22 07:55 | Psychiatric Progress Note ---
Date of Service October 22, 2022 Impression / Recommendations Impression 10/22/22: Significantly less anxious and overwhelmed today. She's been out of her room, attending groups. Clonidine opioid withdrawal protocol was started yesterday. She's done well with this, but as withdrawal symptoms have diminished she'd been more sedated with scheduled clonidine. When discussing withdrawal, pt seems disinterested in any discussion of her opioid use and dismissive of the possibility that she was overusing them. Her daughter seems to have found a place and formulated a plan for moving, which based on time course appears to be a primary factor in pt's no longer reporting suicidal thoughts. She is tolerating increased lurasidone and does not attribute any adverse effects to it. 10/21/22: Based on vital signs changes and behavioral observations, appears fairly clearly to have started withdrawing from opioids. Toxicology screen was negative for opioid metabolites but bottles were found in her belongings at admission. Remains anxious, needy. Yesterday evening she following me around the unit saying "oh, doctor..." perseveratively. Each time I asked her about this she'd say "why do you think I'm like this?", appearing to have forgotten the previous times we'd discussed that. 10/20/22: Somewhat inconsistent presentation, conceptualized by pt as depression but symptoms primarily suggesting anxiety. 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 Presents as highly emotional and somewhat dramatic at time and almost unconcerned at others. She has difficulty describing other peoples' emotions and experiences. She is preoccupied with abandonment. It appears that she has been assigned a bipolar disorger diagosis in the past, which may well be accurate. However, borderline personality disorder must be considered, as must the possibility of early dementia. (1) Major depressive disorder, recurrent, severe without psychotic features: (2) EVANS (generalized anxiety disorder): Plan 10/22/22: Will d/c standing clonidine but continue opioid withdrawal monitoring and PRN clonidine until tomorrow. Continue lurasidone 60 mg PO QPM. 10/21/22: Has been started on clonidine-based opioid withdrawal protocol. Will cautiously increase lurasidone to 60 mg PQM. 10/20/22: All of pt's medications were stopped in the ED, so this could influence how she presents today. Will resume them as it is understood she was taking them and reassess. It is not clear whether the oxcarbazepine and topiramate are intended for psychiatric or neurological symptoms so will establish this before considering changing them. Suicide Risk Level Suicide Risk Level: Moderate (q15 min suicide checks) Risk Factors Assessment Male: No : Yes Do You Have Access To A Gun?: No Health Problems: Yes Mental Health Diagnoses: Yes Substance Use Disorders: Yes Protective Factors Assessment Employed: No Interval History Identifying Information SYED OLIVER is a 67-year-old F who currently lives alone in an apartment near her daughter, though both of them are being evicted, has a history of major depression and EVANS, and was admitted on 10/20/22 02:15 on a 201 voluntary commitment for suicidal ideation then started showing signs of opioid withdrawal following admisison. Chief Complaint "I'm sleepy". Review of Systems Sleep Information Total Hours of Sleep: 7.75 Sleep Comments: Admitted overnight and did not get to bed until loader unloader Meal Information Percent Meal Consumed - Breakfast: 100 Percent Meal Consumed - Lunch: 100 Percent Meal Consumed - Dinner: 100 Subjective Subjective Patient was seen & assessed and interval progress reviewed with treatment team nursing and social work Physical Exam Psychiatric Orientation: alert and oriented x 3 Apperance: appropriately dressed Eye Contact: good eye contact Motor Behavior: + EPS Affect: + anxious affect Mood: + anxious mood Thought Process: + circumstantial thought process, + tangential thought process and + perseveration Thought Content: + preoccupation Suicidal Thoughts: denies suicidal thoughts Homicidal Thoughts: denies homicidal thoughts Hallucinations: no auditory hallucinations and no visual hallucinations Estimated Intelligence: average estimated intelligence Insight: + poor insight Judgment: + limited judgement Vital Signs (Past 24 Hours) Last Vital Signs Temp 36.4 C L 10/22/22 06:40 Pulse 96 H 10/22/22 06:41 Resp 16 10/22/22 06:40 BP 117/77 10/22/22 06:41 Pulse Ox 98 10/21/22 20:00 O2 Del Method 10/21/22 21:50 Results & Data ([facility]) Current Inpatient Medications Current Inpatient Medications: Current Inpatient Medications Acetaminophen (Acetaminophen 325 Mg Tab) 650 mg PO Q4H PRN PRN Reason: Headache or Minor Fever Stop: 11/19/22 02:14 Last Admin: 10/20/22 11:05 Dose: 650 mg Al Hydrox/Mg Hydrox/Simethicone (Aluminum/Magnesium Susp 30 Ml Udc) 30 ml PO Q4H PRN PRN Reason: GI Upset Stop: 11/19/22 02:14 Last Admin: 10/20/22 17:43 Dose: 30 ml Alprazolam (Alprazolam 0.5 Mg Tablet) 1 mg PO TID [facility] Stop: 11/19/22 20:59 Last Admin: 10/21/22 21:06 Dose: 1 mg Atorvastatin Calcium (Atorvastatin 40 Mg Tab) 40 mg PO QAM [facility] Stop: 11/20/22 08:59 Last Admin: 10/21/22 09:05 Dose: 40 mg Celecoxib (Celebrex 200 Mg Cap) 200 mg PO BID [facility] Stop: 11/19/22 20:59 Last Admin: 10/21/22 21:07 Dose: 200 mg Cetirizine HCl (Cetirizine Hcl 10 Mg Tablet) 10 mg PO HS [facility] Stop: 11/19/22 21:59 Last Admin: 10/21/22 21:08 Dose: 10 mg Clonidine HCl (Clonidine Hcl 0.1 Mg Tab) 0.1 mg PO Q4HWA [facility] Stop: 11/19/22 19:59 Last Admin: 10/21/22 19:59 Dose: 0.1 mg Clonidine HCl (Clonidine Hcl 0.1 Mg Tab) 0.1 mg PO Q2H PRN PRN Reason: For ANY 2 Symptoms Stop: 11/19/22 19:28 Diphenoxylate HCl/Atropine (Diphenoxylate/Atropine 2.5/0.025mg Tab) 1 tab PO Q4H PRN PRN Reason: Abdominal Cramping/Diarrhea Stop: 11/19/22 19:28 Duloxetine HCl (Duloxetine Hcl 60 Mg Cap) 60 mg PO QAM [facility] Stop: 11/19/22 17:29 Last Admin: 10/21/22 09:06 Dose: 60 mg Hydroxyzine HCl (Hydroxyzine Hcl 25 Mg Tab) 50 mg PO TID [facility] Stop: 11/19/22 20:59 Last Admin: 10/21/22 21:08 Dose: 50 mg Lactase (Lactase 3000 Unit Tab) 9,000 units PO ACHS PRN PRN Reason: Lactose Intolerance Stop: 11/19/22 17:41 Lurasidone HCl (Lurasidone Hcl 40 Mg Tab) 60 mg PO DAILY [facility] Stop: 11/21/22 08:59 Magnesium Hydroxide (Magnesium Hydroxide Susp 30 Ml Udc) 30 ml PO DAILY PRN PRN Reason: Constipation Stop: 11/19/22 02:14 Oxcarbazepine (Oxcarbazepine 150 Mg Tablet) 300 mg PO BID [facility] Stop: 11/19/22 20:59 Last Admin: 10/21/22 21:08 Dose: 300 mg Sodium Chloride (Sodium Chloride 0.65% Na Soln 45 Ml ([place])) 1 - 2 sprays NA PRN PRN PRN Reason: Nasal Dryness/Congestion Stop: 11/19/22 02:14 Topiramate (Topiramate 50 Mg Tab) 50 mg PO QAM [facility] Stop: 11/19/22 17:44 Last Admin: 10/21/22 09:06 Dose: 50 mg Trazodone HCl (Trazodone Hcl 100 Mg Tab) 200 mg PO HS [facility] Stop: 11/19/22 21:59 Last Admin: 10/21/22 21:07 Dose: 100 mg Mental Health & Subst Abuse Tx Psychiatrist Name of Psychiatrist: [facility] - Psychiatrist's Date Of Appointment With Psychiatric Provider: 11/13/22 Time of Appointment with Psychiatrist: 11:30 AM Psychiatric Appointment Comment: Virtual Post Discharge Appointments Primary Care Physician Name Of Family Doctor/PCP: Alex Torre Primary Care Provider Appointment Comment: [address] [place] [phone] Contact Information Discharge
[2022-10-22] MEDS: cloNIDine HCL 0.1 MG TAB PO SCH ×2 (08:15→13:21)
[2022-10-22] MEDS: ALPRAZolam 0.5 MG TABLET PO SCH ×3 (09:18→21:04)
[2022-10-22] MEDS: DULoxetine HCL 60 MG CAP PO SCH (09:19)
[2022-10-22] MEDS: ATORVASTATIN 40 MG TAB PO SCH (09:19)
[2022-10-22] MEDS: hydrOXYzine HCl 25 MG TAB PO SCH ×3 (09:20→21:04)
[2022-10-22] MEDS: CeleBREX 200 MG CAP PO SCH ×2 (09:20→21:04)
[2022-10-22] MEDS: LURASIDONE HCL 40 MG TAB PO SCH (09:21)
[2022-10-22] MEDS: OXcarbazepine 150 MG TABLET PO SCH ×2 (09:22→21:05)
[2022-10-22] MEDS: TOPIRAMATE 50 MG TAB PO SCH (09:23)
[2022-10-22] MEDS: traZODone HCL 100 MG TAB PO SCH (21:04)
[2022-10-22] MEDS: CETIRIZINE HCL 10 MG TABLET PO SCH (21:05)
[2022-10-22 21:22] LABS: 7-Aminoclonaz, Confirm 98 ng/mL (<25); Hydro-Alp Ur, GC/MS 220 ng/mL (<25); Hydroxyethylflurazepam, Conf NEGATIVE ng/mL (<50); Hydroxymidazolam Ur, GC/MS NEGATIVE ng/mL (<50); Hydroxytriazolam NEGATIVE ng/mL (<50); Lorazepam, Ur GC/MS NEGATIVE ng/mL (<50); Nordiazepam, Confirm NEGATIVE ng/mL (<50); Oxazepam Ur, GC/MS NEGATIVE ng/mL (<50); Temazepam, Confirm NEGATIVE ng/mL (<50)
[2022-10-23] MEDS: OXcarbazepine 150 MG TABLET PO SCH ×2 (08:29→21:03)
[2022-10-23] MEDS: ALPRAZolam 0.5 MG TABLET PO SCH ×3 (08:29→21:02)
[2022-10-23] MEDS: LURASIDONE HCL 40 MG TAB PO SCH (08:30)
[2022-10-23] MEDS: ATORVASTATIN 40 MG TAB PO SCH (08:32)
[2022-10-23] MEDS: DULoxetine HCL 60 MG CAP PO SCH (08:32)
[2022-10-23] MEDS: hydrOXYzine HCl 25 MG TAB PO SCH ×3 (08:32→21:03)
[2022-10-23] MEDS: TOPIRAMATE 50 MG TAB PO SCH (08:32)
[2022-10-23] MEDS: CeleBREX 200 MG CAP PO SCH ×2 (08:32→21:03)
--- NOTE | 2022-10-23 08:49 | Psychiatric Progress Note ---
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 Diagnostically consistent with MDD with significant anxious distress. She remains unstable and requires psychiatric hospitalization for diagnostic clarification, safety and stabilization, medication management and development of further coping skills. 10/23/2022: Still with significant anxious distress and feels like a burden to others but no longer with signs of opioid withdrawal and mental clarity improving with better memory of recent events. Consents to taper of Xanax given concerns about side effects given her age and recent concurrent opioid use and high dose. Will taper slowly given possible seizure history and risk of perpetu ating benzodiazepine withdrawal. (1) Major depressive disorder, recurrent, severe without psychotic features: (2) EVANS (generalized anxiety disorder): Plan 10/23/22: Taper Xanax to 1mg BID. Continuing to monitor response to higher dose of Latuda given mental status changes in recent days. 10/22/22: Will d/c standing clonidine but continue opioid withdrawal monitoring and PRN clonidine until tomorrow. Continue lurasidone 60 mg PO QPM. 10/21/22: Has been started on clonidine-based opioid withdrawal protocol. Will cautiously increase lurasidone to 60 mg PQM. 10/20/22: All of pt's medications were stopped in the ED, so this could influence how she presents today. Will resume them as it is understood she was taking them and reassess. It is not clear whether the oxcarbazepine and topiramate are intended for psychiatric or neurological symptoms so will establish this before considering changing them. Suicide Risk Level Suicide Risk Level: Moderate (q15 min suicide checks) (denies current SI but still with depression, anxiety and feels like a burden to others. Agrees to let nursing know if she feels unsafe or unable to remain safe) Risk Factors Assessment Male: No : Yes Do You Have Access To A Gun?: No Health Problems: Yes Mental Health Diagnoses: Yes Substance Use Disorders: Yes Protective Factors Assessment Employed: No Interval History Identifying Information SYED OLIVER is a 67-year-old F who currently lives alone in an apartment near her daughter, though both of them are being evicted, has a history of major depression and EVANS, and was admitted on 01/29/23 02:15 on a 201 voluntary commitment for suicidal ideation then started showing signs of opioid withdrawal following admisison. Chief Complaint "I feel like a burden to my daughter". Review of Systems Sleep Information Total Hours of Sleep: 7.5 Sleep Comments: Admitted overnight and did not get to bed until telephoto installer Meal Information Percent Meal Consumed - Breakfast: 100 Percent Meal Consumed - Lunch: 100 Percent Meal Consumed - Dinner: 100 Subjective Subjective Patient was seen & assessed and interval progress reviewed with treatment team nursing and social work. Family meeting yesterday. Situational stress of housing has lessened though still stress of moving. Remains very anxious and feels overwhelmed about going home. Feels like a burden to her family and describes becoming very tearful in the shower due to ongoing grief about the of multiple family members over the last few months noting "it feels like everything keeps happening all at once". Processed this with her. She isn't sure if she's having any side effects from the increased latuda as she feels anxious about the possibility it could have contributed to her increased grief/crying but agreeable to continuing at higher dose to see if it helps with anxiety and depression. Discussed recommendation to taper Xanax given opioid use for knee and back pain at times and that if benzo needed in the future ideally would be longer lasting formulation such as lorazepam or clonazepam. Physical Exam Psychiatric Orientation: alert and oriented x 3 Apperance: appropriately dressed and appropriately groomed Eye Contact: + fair eye contact Motor Behavior: no abnormal motor movements (clenches jaw at times but seems related to anxiety) Affect: + depressed affect, + anxious affect and + tearful affect Mood: + depressed mood and + anxious mood Thought Process: + circumstantial thought process Thought Content: + preoccupation (very anxious about move), reality based without delusions, + guilt and + self deprecation Suicidal Thoughts: denies suicidal thoughts (but feels like a burden to her family) Homicidal Thoughts: denies homicidal thoughts Hallucinations: no auditory hallucinations and no visual hallucinations Estimated Intelligence: average estimated intelligence Insight: + limited insight Judgment: + limited judgement Vital Signs (Past 24 Hours) Last Vital Signs Temp 36.9 C 10/23/22 06:39 Pulse 84 10/23/22 06:39 Resp 16 10/23/22 06:39 BP 120/78 10/23/22 06:39 Pulse Ox 94 10/22/22 18:00 O2 Del Method 10/22/22 18:00 Results & Data ([facility]) Laboratory Results Laboratory Results - last 24 hr 10/19/22 16:15 U OH-Alprazolam Confrm 220 H 7-[place]mino Clonazepam 98 H Ur Nordiazepam Confirm NEGATIVE U OH-ethylflurazepam NEGATIVE U Lorazepam Cnf GC/MS NEGATIVE U Oxazepam Confm GC/MS NEGATIVE Ur Temazepam Confirm NEGATIVE U OH-Triazolam Confirm NEGATIVE U OH-Midazolam Confirm NEGATIVE Drug Screen Comment SEE NOTE Current Inpatient Medications Current Inpatient Medications: Current Inpatient Medications Acetaminophen (Acetaminophen 325 Mg Tab) 650 mg PO Q4H PRN PRN Reason: Headache or Minor Fever Stop: 11/19/22 02:14 Last Admin: 10/20/22 11:05 Dose: 650 mg Al Hydrox/Mg Hydrox/Simethicone (Aluminum/Magnesium Susp 30 Ml Udc) 30 ml PO Q4H PRN PRN Reason: GI Upset Stop: 11/19/22 02:14 Last Admin: 10/20/22 17:43 Dose: 30 ml Alprazolam (Alprazolam 0.5 Mg Tablet) 1 mg PO TID [facility] Stop: 11/19/22 20:59 Last Admin: 10/23/22 08:29 Dose: 1 mg Atorvastatin Calcium (Atorvastatin 40 Mg Tab) 40 mg PO QAM [facility] Stop: 11/20/22 08:59 Last Admin: 10/23/22 08:32 Dose: 40 mg Celecoxib (Celebrex 200 Mg Cap) 200 mg PO BID [facility] Stop: 11/19/22 20:59 Last Admin: 10/23/22 08:32 Dose: 200 mg Cetirizine HCl (Cetirizine Hcl 10 Mg Tablet) 10 mg PO HS [facility] Stop: 11/19/22 21:59 Last Admin: 10/22/22 21:05 Dose: 10 mg Clonidine HCl (Clonidine Hcl 0.1 Mg Tab) 0.1 mg PO Q2H PRN PRN Reason: For ANY 2 Symptoms Stop: 11/19/22 19:28 Diphenoxylate HCl/Atropine (Diphenoxylate/Atropine 2.5/0.025mg Tab) 1 tab PO Q4H PRN PRN Reason: Abdominal Cramping/Diarrhea Stop: 11/19/22 19:28 Duloxetine HCl (Duloxetine Hcl 60 Mg Cap) 60 mg PO QAM [facility] Stop: 11/19/22 17:29 Last Admin: 10/23/22 08:32 Dose: 60 mg Hydroxyzine HCl (Hydroxyzine Hcl 25 Mg Tab) 50 mg PO TID [facility] Stop: 11/19/22 20:59 Last Admin: 10/23/22 08:32 Dose: 50 mg Lactase (Lactase 3000 Unit Tab) 9,000 units PO ACHS PRN PRN Reason: Lactose Intolerance Stop: 11/19/22 17:41 Lurasidone HCl (Lurasidone Hcl 40 Mg Tab) 60 mg PO DAILY [facility] Stop: 11/21/22 08:59 Last Admin: 10/23/22 08:30 Dose: 60 mg Magnesium Hydroxide (Magnesium Hydroxide Susp 30 Ml Udc) 30 ml PO DAILY PRN PRN Reason: Constipation Stop: 11/19/22 02:14 Oxcarbazepine (Oxcarbazepine 150 Mg Tablet) 300 mg PO BID [facility] Stop: 11/19/22 20:59 Last Admin: 10/23/22 08:29 Dose: 300 mg Sodium Chloride (Sodium Chloride 0.65% Na Soln 45 Ml ([place])) 1 - 2 sprays NA PRN PRN PRN Reason: Nasal Dryness/Congestion Stop: 11/19/22 02:14 Topiramate (Topiramate 50 Mg Tab) 50 mg PO QAM [facility] Stop: 11/19/22 17:44 Last Admin: 10/23/22 08:32 Dose: 50 mg Trazodone HCl (Trazodone Hcl 100 Mg Tab) 200 mg PO HS [facility] Stop: 11/19/22 21:59 Last Admin: 10/22/22 21:04 Dose: 200 mg Mental Health & Subst Abuse Tx Psychiatrist Name of Psychiatrist: [facility] - Psychiatrist's Date Of Appointment With Psychiatric Provider: 11/13/22 Time of Appointment with Psychiatrist: 11:30 AM Psychiatric Appointment Comment: Virtual Post Discharge Appointments Primary Care Physician Name Of Family Doctor/PCP: Alex Torre Primary Care Provider Appointment Comment: [address] [place] [id number] Contact Information Discharge
[2022-10-23] MEDS: ACETAMINOPHEN 325 MG TAB PO PRN (19:09)
[2022-10-23] MEDS: traZODone HCL 100 MG TAB PO SCH (21:04)
[2022-10-23] MEDS: CETIRIZINE HCL 10 MG TABLET PO SCH (21:04)
[2022-10-24] MEDS: ALPRAZolam 0.5 MG TABLET PO SCH (08:48)
[2022-10-24] MEDS: CeleBREX 200 MG CAP PO SCH ×2 (08:49→21:04)
[2022-10-24] MEDS: ATORVASTATIN 40 MG TAB PO SCH (08:49)
[2022-10-24] MEDS: DULoxetine HCL 60 MG CAP PO SCH (08:50)
[2022-10-24] MEDS: LURASIDONE HCL 40 MG TAB PO SCH (08:50)
[2022-10-24] MEDS: hydrOXYzine HCl 25 MG TAB PO SCH ×3 (08:50→21:06)
[2022-10-24] MEDS: OXcarbazepine 150 MG TABLET PO SCH ×2 (08:51→21:08)
[2022-10-24] MEDS: TOPIRAMATE 50 MG TAB PO SCH (08:52)
--- NOTE | 2022-10-24 16:44 | Psychiatric Progress Note ---
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 Diagnostically consistent with MDD with significant anxious distress. She remains unstable and requires psychiatric hospitalization for diagnostic clarification, safety and stabilization, medication management and development of further coping skills. MNPR due to age with high community prevalence of COVID-19, significant anxiety 10/24/2022: Mood improving, sleeping well. Tolerating reduction of Xanax and consents to transition to Klonopin. Discussed risks, benefits and alternatives. She consented to Klonopin for anxiety, panic attacks.Reviewed side effects including but not limited to: increased fall risk, addictive potential, pot ential to worsen cognitive effects, importance of not driving or operating heavy machinery while taking, potential for fatal respiratory depression if combined with opioids or alcohol and potential for seizures/fatality if stopped abruptly. (1) Major depressive disorder, recurrent, severe without psychotic features: (2) EVANS (generalized anxiety disorder): Plan 10/24/22: Transition to Klonopin 0.5mg BID. Continue with Latuda. 10/23/22: Taper Xanax to 1mg BID. Continuing to monitor response to higher dose of Latuda given mental status changes in recent days. 10/22/22: Will d/c standing clonidine but continue opioid withdrawal monitoring and PRN clonidine until tomorrow. Continue lurasidone 60 mg PO QPM. 10/21/22: Has been started on clonidine-based opioid withdrawal protocol. Will cautiously increase lurasidone to 60 mg PQM. 10/20/22: All of pt's medications were stopped in the ED, so this could influence how she presents today. Will resume them as it is understood she was taking them and reassess. It is not clear whether the oxcarbazepine and topiramate are intended for psychiatric or neurological symptoms so will establish this before considering changing them. Suicide Risk Level Suicide Risk Level: Moderate (q15 min suicide checks) (denies current SI but sti ll with depression, anxiety. Agrees to let nursing know if she feels unsafe or unable to remain safe) Risk Factors Assessment Male: No : Yes Do You Have Access To A Gun?: No Health Problems: Yes Mental Health Diagnoses: Yes Substance Use Disorders: Yes Protective Factors Assessment Employed: No Interval History Identifying Information SYED OLIVER is a 67-year-old F who currently lives alone in an apartment near her daughter, though both of them are being evicted, has a history of major depression and EVANS, and was admitted on 10/20/22 02:15 on a 201 voluntary commitment for suicidal ideation then started showing signs of opioid withdrawal following admisison. Chief Complaint "I'm nervous about moving but I feel better this afternoon". Review of Systems Sleep Information Total Hours of Sleep: 7.5 Sleep Comments: Meal Information Percent Meal Consumed - Breakfast: 100 Percent Meal Consumed - Lunch: 100 Percent Meal Consumed - Dinner: 100 Subjective Subjective Patient was seen & assessed and interval progress reviewed with treatment team nursing and social work. Tearful after another patient on the unit left but improved mood by the afternoon. Attending groups. Less anxious and tolerated dose reduction of Xanax. Agrees to cross-taper to Klonopin with long-term goal of taper to discontinuation. No side effects from the higher dose of Latuda. Denies SI. Slept well last night. Hopes she can help out her daughter enough with the move but no longer with self-guilt or feeling like a burden, able to re-conceptualize as "I can only do what I can and not as much as usual so I hope she understands that". Feels transitions are very difficult for her but is glad they now have a new apartment. Physical Exam Psychiatric Orientation: alert and oriented x 3 Apperance: appropriately dressed and appropriately groomed Eye Contact: good eye contact Motor Behavior: steady gait and station and no abnormal motor movements Affect: + anxious affect and + constricted affect Mood: + depressed mood and + anxious mood Thought Process: goal directed thought process Thought Content: reality based without delusions Suicidal Thoughts: denies suicidal thoughts Homicidal Thoughts: denies homicidal thoughts Hallucinations: no auditory hallucinations and no visual hallucinations Estimated Intelligence: average estimated intelligence Insight: + fair insight Judgment: + fair judgement Vital Signs (Past 24 Hours) Last Vital Signs Temp 36.6 C 10/24/22 06:30 Pulse 86 10/24/22 06:30 Resp 16 10/24/22 06:30 BP 121/72 10/24/22 06:30 Pulse Ox 94 10/22/22 18:00 O2 Del Method 10/22/22 18:00 Results & Data ([facility]) Current Inpatient Medications Current Inpatient Medications: Current Inpatient Medications Acetaminophen (Acetaminophen 325 Mg Tab) 650 mg PO Q4H PRN PRN Reason: Headache or Minor Fever Stop: 11/19/22 02:14 Last Admin: 10/23/22 19:09 Dose: 650 mg Al Hydrox/Mg Hydrox/Simethicone (Aluminum/Magnesium Susp 30 Ml Udc) 30 ml PO Q4H PRN PRN Reason: GI Upset Stop: 11/19/22 02:14 Last Admin: 10/20/22 17:43 Dose: 30 ml Atorvastatin Calcium (Atorvastatin 40 Mg Tab) 40 mg PO QAM [facility] Stop: 11/20/22 08:59 Last Admin: 10/24/22 08:49 Dose: 40 mg Celecoxib (Celebrex 200 Mg Cap) 200 mg PO BID [facility] Stop: 11/19/22 20:59 Last Admin: 10/24/22 08:49 Dose: 200 mg Cetirizine HCl (Cetirizine Hcl 10 Mg Tablet) 10 mg PO HS [facility] Stop: 11/19/22 21:59 Last Admin: 10/23/22 21:04 Dose: 10 mg Clonazepam (Clonazepam 0.5 Mg Tab) 0.5 mg PO BID [facility] Stop: 11/23/22 20:59 Clonidine HCl (Clonidine Hcl 0.1 Mg Tab) 0.1 mg PO Q2H PRN PRN Reason: For ANY 2 Symptoms Stop: 11/19/22 19:28 Diphenoxylate HCl/Atropine (Diphenoxylate/Atropine 2.5/0.025mg Tab) 1 tab PO Q4H PRN PRN Reason: Abdominal Cramping/Diarrhea Stop: 11/19/22 19:28 Duloxetine HCl (Duloxetine Hcl 60 Mg Cap) 60 mg PO QAM [facility] Stop: 11/19/22 17:29 Last Admin: 10/24/22 08:50 Dose: 60 mg Hydroxyzine HCl (Hydroxyzine Hcl 25 Mg Tab) 50 mg PO TID [facility] Stop: 11/19/22 20:59 Last Admin: 10/24/22 13:54 Dose: 50 mg Lactase (Lactase 3000 Unit Tab) 9,000 units PO ACHS PRN PRN Reason: Lactose Intolerance Stop: 11/19/22 17:41 Lurasidone HCl (Lurasidone Hcl 40 Mg Tab) 60 mg PO DAILY [facility] Stop: 11/21/22 08:59 Last Admin: 10/24/22 08:50 Dose: 60 mg Magnesium Hydroxide (Magnesium Hydroxide Susp 30 Ml Udc) 30 ml PO DAILY PRN PRN Reason: Constipation Stop: 11/19/22 02:14 Oxcarbazepine (Oxcarbazepine 150 Mg Tablet) 300 mg PO BID [facility] Stop: 11/19/22 20:59 Last Admin: 10/24/22 08:51 Dose: 300 mg Sodium Chloride (Sodium Chloride 0.65% Na Soln 45 Ml ([place])) 1 - 2 sprays NA PRN PRN PRN Reason: Nasal Dryness/Congestion Stop: 11/19/22 02:14 Topiramate (Topiramate 50 Mg Tab) 50 mg PO QAM [facility] Stop: 11/19/22 17:44 Last Admin: 10/24/22 08:52 Dose: 50 mg Trazodone HCl (Trazodone Hcl 100 Mg Tab) 200 mg PO HS [facility] Stop: 11/19/22 21:59 Last Admin: 10/23/22 21:04 Dose: 200 mg Mental Health & Subst Abuse Tx Psychiatrist Name of Psychiatrist: [facility] Psychiatrist's Date Of Appointment With Psychiatric Provider: 11/13/22 Time of Appointment with Psychiatrist: 11:30 AM Psychiatric Appointment Comment: Virtual Tax Director Name of Tax Director: [employer] Phone Number for Tax Director: [phone] Time of Appointment with Tax Director: please follow up with services Tax Director Release of Information: Signed Post Discharge Appointments Primary Care Physician Name Of Family Doctor/PCP: Alex Torre Primary Care Provider Appointment Comment: [address] [place] [phone] Contact Information Discharge
[2022-10-24] MEDS: ALUMINUM/MAGNESIUM SUSP 30 ML UDC PO PRN (19:25)
[2022-10-24] MEDS: traZODone HCL 100 MG TAB PO SCH (21:05)
[2022-10-24] MEDS: CETIRIZINE HCL 10 MG TABLET PO SCH (21:06)
[2022-10-24] MEDS: clonazePAM 0.5 MG TAB PO SCH (21:07)
[2022-10-25] MEDS: DULoxetine HCL 60 MG CAP PO SCH (08:43)
[2022-10-25] MEDS: ATORVASTATIN 40 MG TAB PO SCH (08:43)
[2022-10-25] MEDS: CeleBREX 200 MG CAP PO SCH (08:43)
[2022-10-25] MEDS: hydrOXYzine HCl 25 MG TAB PO SCH ×2 (08:44→13:46)
[2022-10-25] MEDS: LURASIDONE HCL 40 MG TAB PO SCH (08:44)
[2022-10-25] MEDS: OXcarbazepine 150 MG TABLET PO SCH (08:45)
[2022-10-25] MEDS: TOPIRAMATE 50 MG TAB PO SCH (08:45)
[2022-10-25] MEDS: clonazePAM 0.5 MG TAB PO SCH (08:46)
[2022-10-25] MEDS: ACETAMINOPHEN 325 MG TAB PO PRN (09:45)
--- NOTE | 2022-10-25 12:25 | Discharge Summary ---
Date of Service October 25, 2022 History of Present Illness Pt was found on the floor subjectively unable to move. She offers little history or explanation of this, preferring to talk about anxiety. She exhibits a strong tendency to respond to questions with approximate or irrelevant responses that detail various stressors, especially abandonment. Much of her report is internally inconsistent in that she will deny something when asked but later spontaneously endorse the same thing. After having moved from [facility] to [place] with a new over 25 yr ago, she has moved back to the area to be near her daughter. She says she never had any problems befre 25 yr ago when she had a UTI and an episode of delirium that these many years later she can't stop thinking about. She says her marked jaw tremor started then but attributes it to prochlorperazine she took when she was 10 y/o. She speaks as if she has hardly had any psychiatric treatment, yet cites a lot of failed treatment trials. She is unaware of any specific diagnoses. She is unable to name any medications other than "Xanax" and mentions that medication multiple times through the exam as if it's the only thing she takes. In fact, she appears to have been on duloxetine, lurasidone, oxcarbazepine, topiramate, and other medications. She doesn't know the reasons for any other medications so it's not currently clear whether the oxcarbazepine and topiramate are intended for psychiatric use or not. She says her neurologist told her she has some sort of memory disorder but she can't remember the name of it. Physical Exam Vital Signs (Past 24 Hours) Last Vital Signs Temp 37 C 10/25/22 12:19 Pulse 90 10/25/22 12:19 Resp 16 10/25/22 12:19 BP 136/84 10/25/22 12:19 Pulse Ox 94 10/25/22 12:19 O2 Del Method 10/22/22 18:00 See admission H&P and DOD summary. Principal Diagnosis Major Depressive Disorder with anxious distress Psychiatric Data See daily stay summary. In short, patient was engaged with the social/therapeutic milieu of the unit, safety was maintained and the patient was cooperative with care. Medication changes included increase in Latuda to 60mg daily, cross-taper from Xanax to Klonopin with dose reduction and they tolerated this well. Recommend goal of ongoing taper of Klonopin to discontinuation over the next 1-2 months as anxiety and depression continue to improve. Recommend avoiding any concurrent use of opioid pain medications if she is requiring prn benzodiazepines. Recommend repeat fasting glucose, HbA1c and fasting lipid profile in 12 weeks given dose increase and then annually. If symptoms arise recommend checking BP, EKG, prolactin level as clinically indicated or relevant. A family session was held and safety plan was completed prior to discharge. She actively participated in safety planning and in discussions about ways to seek support and recognizing warning signs and utilizing coping skills. Reviewed mobile apps that could be used for additional ways to have their safety plan and contacts easily available should thoughts of SI re-emerge in the future. Reviewed importance of seeking emergency care should SI intensify, worsen or should they feel unsafe in the future which they agree to do. On the day of discharge she stated her mood was "good" and remained future-oriented including seeing her daughter, her grandson, moving into her new apartment and engaging in aftercare appointments for psychiatry and case management. Day of Discharge Assessment Today the patient voices readiness for discharge. They note improvement in mood and anxiety. They deny thoughts of harm to self or others. Thoughts are organized and they are clinically improved from admission. There is no evidence of psychosis. They improved in the hospital with support and medication adjustments. They agree to take medications as prescribed and keep follow-up appointments. At the time of the discharge they are deemed to be stable and appropriate for outpatient level of care. They are not deemed to be at imminent risk of harm to self or others. They are aware of emergency and crisis services. Knows to call 911 or go to nearest emergency care center if in a crisis which cannot be handled as an outpatient. Transition of Care Transition Of Care Record: was reviewed with the patient Advance Directives Advance Directives Information Provided: Yes Advance Directives: No (not with pt) Mental Health Advance Directive: No Advance Directives on File: No Living Will: No Power of Blue Leather Sorter: Yes (as claimed by pt) Power of Blue Leather Sorter Name: Danni Zhong Power of Blue Leather Sorter Advance Directives Reason:: Declines as Mental Health Visit. Suicide Risk Level Suicide Risk Level Comments: Acute risk is low given improvement in mood and denial of SI, lack of access to lethal means, hopefulness, secured new apartment. Chronic risk is low given few non-modifiable risk factors: emotional reactivity and also with protective factors including good social support, sense of responsibility to family and social supports, outpatient care in place, positive coping skills, positive problem solving, capacity to establish therapeutic alliance, willingness to engage with treatment, capacity for self-observation. Counseled on ways to reduce acute and chronic risk including engaging with outpatient providers, using safety plan if needed, utilizing supports, taking medication, and using coping skills. Modifiable risk factors of SI, anxiety and depression were addressed during hospitalization through development of new coping skills, family meeting, safety planning, and medication adjustments. Risk Factors Assessment Male: No : Yes Do You Have Access To A Gun?: No Health Problems: Yes Mental Health Diagnoses: Yes Substance Use Disorders: Yes Previous Attempt: No Family History of Suicide: No Hopelessness: No Protective Factors Assessment Employed: No Stable Relationships: Yes Supportive Family: Yes Good Rapport with Provider: Yes Opioid Risk Protocol Educated on option and use ofnaloxone nasal spray. Kit offered to patient. Patient declines kit today, stating, she no longer has any hydrocodone and won't need to be using any pain medication. Discharge Data Lab Results 10/19/22 10/19/22 10/19/22 15:10 15:10 15:10 WBC 5.92 RBC 4.14 L Hgb 12.6 Hct 36.6 L MCV 88.4 MCH 30.4 MCHC 34.4 RDW Std Deviation 44.0 RDW Coeff of Zonia 13.5 Plt Count 202 MPV 9.3 L Immature Gran % (Auto) 0.2 Neut % (Auto) 49.7 Lymph % (Auto) 41.0 Stafford % (Auto) 5.7 Eos % (Auto) 2.2 Baso % (Auto) 1.2 Neut # (Auto) 2.94 Lymph # (Auto) 2.43 Stafford # (Auto) 0.34 Eos # (Auto) 0.13 Baso # (Auto) 0.07 Immature Gran # (Auto) 0.01 PT 10.4 INR 1.0 APTT 25.3 PTT Ratio 0.9 Sodium 140 Potassium 4.0 Chloride 110 H Carbon Dioxide 23 Anion Gap 7 BUN 21 Creatinine 0.99 Est Cr Clr Drug Dosing Not Reportable Est GFR ( Amer) 67.4 Est GFR (Non-Af Amer) 58.1 BUN/Creatinine Ratio 21.2 H Glucose 113 H Calcium 9.2 Magnesium 1.9 Total Bilirubin 0.3 AST 12 L ALT 9 Alkaline Phosphatase 75 Troponin I High Sens Total Protein 6.4 Albumin 3.9 Globulin 2.5 Albumin/Globulin Ratio 1.6 TSH Urine Color Urine Appearance Urine pH Ur Specific Shirland Urine Protein Urine Glucose (UA) Urine Ketones Urine Blood Urine Nitrite Urine Bilirubin Urine Urobilinogen Ur Leukocyte Esterase Urine WBC (Auto) Urine RBC (Auto) U Hyaline Cast (Auto) U Epithel Cells (Auto) Urine Bacteria (Auto) Calcium Oxalate Crystal Amorphous Sediment Urine Yeast Salicylates Urine Opiates Screen Ur Methadone, Qual Acetaminophen Urine Barbiturates Ur Phencyclidine (PCP) U Amphetamin/Meth Scrn MDMA (Ecstasy) Screen U OH-Alprazolam Confrm U Benzodiazepines Scrn 7-Amino Clonazepam Ur Nordiazepam Confirm U OH-ethylflurazepam U Lorazepam Cnf GC/MS U Oxazepam Confm GC/MS Ur Temazepam Confirm U OH-Triazolam Confirm U OH-Midazolam Confirm Ur Cocaine Metabolite U Marijuana (THC) Screen Drug Screen Comment Ethyl Alcohol mg/dL SARS-CoV-2, RNA, NAAT 10/19/22 10/19/22 10/19/22 15:15 15:19 16:15 WBC RBC Hgb Hct MCV MCH MCHC RDW Std Deviation RDW Coeff of Zonia Plt Count MPV Immature Gran % (Auto) Neut % (Auto) Lymph % (Auto) Stafford % (Auto) Eos % (Auto) Baso % (Auto) Neut # (Auto) Lymph # (Auto) Stafford # (Auto) Eos # (Auto) Baso # (Auto) Immature Gran # (Auto) PT INR APTT PTT Ratio Sodium Potassium Chloride Carbon Dioxide Anion Gap BUN Creatinine Est Cr Clr Drug Dosing Est GFR ( Amer) Est GFR (Non-Af Amer) BUN/Creatinine Ratio Glucose Calcium Magnesium Total Bilirubin AST ALT Alkaline Phosphatase Troponin I High Sens 4.5 Total Protein Albumin Globulin Albumin/Globulin Ratio TSH 1.164 Urine Color Urine Appearance Urine pH Ur Specific Shirland Urine Protein Urine Glucose (UA) Urine Ketones Urine Blood Urine Nitrite Urine Bilirubin Urine Urobilinogen Ur Leukocyte Esterase Urine WBC (Auto) Urine RBC (Auto) U Hyaline Cast (Auto) U Epithel Cells (Auto) Urine Bacteria (Auto) Calcium Oxalate Crystal Amorphous Sediment Urine Yeast Salicylates Urine Opiates Screen Neg Ur Methadone, Qual Neg Acetaminophen Urine Barbiturates Neg Ur Phencyclidine (PCP) Neg U Amphetamin/Meth Scrn Neg MDMA (Ecstasy) Screen Neg U OH-Alprazolam Confrm U Benzodiazepines Scrn Pos H 7-Amino Clonazepam Ur Nordiazepam Confirm U OH-ethylflurazepam U Lorazepam Cnf GC/MS U Oxazepam Confm GC/MS Ur Temazepam Confirm U OH-Triazolam Confirm U OH-Midazolam Confirm Ur Cocaine Metabolite Neg U Marijuana (THC) Screen Neg Drug Screen Comment Ethyl Alcohol mg/dL SARS-CoV-2, RNA, NAAT 10/19/22 10/19/22 10/19/22 16:15 16:15 20:40 WBC RBC Hgb Hct MCV MCH MCHC RDW Std Deviation RDW Coeff of Zonia Plt Count MPV Immature Gran % (Auto) Neut % (Auto) Lymph % (Auto) Stafford % (Auto) Eos % (Auto) Baso % (Auto) Neut # (Auto) Lymph # (Auto) Stafford # (Auto) Eos # (Auto) Baso # (Auto) Immature Gran # (Auto) PT INR APTT PTT Ratio Sodium Potassium Chloride Carbon Dioxide Anion Gap BUN Creatinine Est Cr Clr Drug Dosing Est GFR ( Amer) Est GFR (Non-Af Amer) BUN/Creatinine Ratio Glucose Calcium Magnesium Total Bilirubin AST ALT Alkaline Phosphatase Troponin I High Sens Total Protein Albumin Globulin Albumin/Globulin Ratio TSH Urine Color Yellow Urine Appearance Cloudy A Urine pH 8.0 H Ur Specific Shirland 1.017 Urine Protein Negative Urine Glucose (UA) Negative Urine Ketones Negative Urine Blood Negative Urine Nitrite Negative Urine Bilirubin Negative Urine Urobilinogen Negative Ur Leukocyte Esterase Trace H Urine WBC (Auto) 1-5 Urine RBC (Auto) 0-4 U Hyaline Cast (Auto) 1-5 U Epithel Cells (Auto) >30 H Urine Bacteria (Auto) 1+ H Calcium Oxalate Crystal Present A Amorphous Sediment Present A Urine Yeast Not Reportable Salicylates Urine Opiates Screen Ur Methadone, Qual Acetaminophen Urine Barbiturates Ur Phencyclidine (PCP) U Amphetamin/Meth Scrn MDMA (Ecstasy) Screen U OH-Alprazolam Confrm 220 H U Benzodiazepines Scrn 7-Amino Clonazepam 98 H Ur Nordiazepam Confirm NEGATIVE U OH-ethylflurazepam NEGATIVE U Lorazepam Cnf GC/MS NEGATIVE U Oxazepam Confm GC/MS NEGATIVE Ur Temazepam Confirm NEGATIVE U OH-Triazolam Confirm NEGATIVE U OH-Midazolam Confirm NEGATIVE Ur Cocaine Metabolite U Marijuana (THC) Screen Drug Screen Comment SEE NOTE Ethyl Alcohol mg/dL SARS-CoV-2, RNA, NAAT NEGATIVE 10/19/22 10/20/22 21:08 00:12 WBC RBC Hgb Hct MCV MCH MCHC RDW Std Deviation RDW Coeff of Zonia Plt Count MPV Immature Gran % (Auto) Neut % (Auto) Lymph % (Auto) Stafford % (Auto) Eos % (Auto) Baso % (Auto) Neut # (Auto) Lymph # (Auto) Stafford # (Auto) Eos # (Auto) Baso # (Auto) Immature Gran # (Auto) PT INR APTT PTT Ratio Sodium Potassium Chloride Carbon Dioxide Anion Gap BUN Creatinine Est Cr Clr Drug Dosing Est GFR ( Amer) Est GFR (Non-Af Amer) BUN/Creatinine Ratio Glucose Calcium Magnesium Total Bilirubin AST ALT Alkaline Phosphatase Troponin I High Sens Total Protein Albumin Globulin Albumin/Globulin Ratio TSH Urine Color Urine Appearance Urine pH Ur Specific Shirland Urine Protein Urine Glucose (UA) Urine Ketones Urine Blood Urine Nitrite Urine Bilirubin Urine Urobilinogen Ur Leukocyte Esterase Urine WBC (Auto) Urine RBC (Auto) U Hyaline Cast (Auto) U Epithel Cells (Auto) Urine Bacteria (Auto) Calcium Oxalate Crystal Amorphous Sediment Urine Yeast Salicylates < 3.0 L Urine Opiates Screen Ur Methadone, Qual Acetaminophen < 3 L Urine Barbiturates Ur Phencyclidine (PCP) U Amphetamin/Meth Scrn MDMA (Ecstasy) Screen U OH-Alprazolam Confrm U Benzodiazepines Scrn 7-Amino Clonazepam Ur Nordiazepam Confirm U OH-ethylflurazepam U Lorazepam Cnf GC/MS U Oxazepam Confm GC/MS Ur Temazepam Confirm U OH-Triazolam Confirm U OH-Midazolam Confirm Ur Cocaine Metabolite U Marijuana (THC) Screen Drug Screen Comment Ethyl Alcohol mg/dL < 10.0 SARS-CoV-2, RNA, NAAT Hospital Course (1) Major depressive disorder, recurrent, severe without psychotic features: (2) EVANS (generalized anxiety disorder): Plan 10/25/22: Increased Klonopin to 0.75mg BID prn given some shakiness/break through anxiety with dose reduction from Xanax cross-taper. Goal of gradual taper to discontinuation over next 1-2 months in outpatient setting which she agrees with. Continue Latuda. 10/24/22: Transition to Klonopin 0.5mg BID. Continue with Latuda. 10/23/22: Taper Xanax to 1mg BID. Continuing to monitor response to higher dose of Latuda given mental status changes in recent days. 10/22/22: Will d/c standing clonidine but continue opioid withdrawal monitoring and PRN clonidine until tomorrow. Continue lurasidone 60 mg PO QPM. 10/21/22: Has been started on clonidine-based opioid withdrawal protocol. Will cautiously increase lurasidone to 60 mg PQM. 10/20/22: All of pt's medications were stopped in the ED, so this could influence how she presents today. Will resume them as it is understood she was taking them and reassess. It is not clear whether the oxcarbazepine and topiramate are intended for psychiatric or neurological symptoms so will establish this before considering changing them. Mental Health & Subst Abuse Tx Psychiatrist Name of Psychiatrist: [facility] Psychiatrist's Date Of Appointment With Psychiatric Provider: 11/13/22 Time of Appointment with Psychiatrist: 11:30 AM Psychiatric Appointment Comment: Virtual Occupational Health Nurse Supervisor Name of Occupational Health Nurse Supervisor: [employer] Phone Number for Occupational Health Nurse Supervisor: [phone] Time of Appointment with Occupational Health Nurse Supervisor: please follow up with services Occupational Health Nurse Supervisor Release of Information: Signed Post Discharge Appointments Primary Care Physician Name Of Family Doctor/PCP: Alex Torre Primary Care Provider Appointment Comment: [address] [place] [id number] Contact Information Discharge Discharge Plan Discharge Items Patient Disposition: Home - Self-Care Reason For Visit: MAJOR DEPRESSIVE DISORDER Discharge Diagnosis: Major Depressive Disorder with anxious distress Activity: Resume your previous activity Non-emergency contact: Primary Care Provider, Psychiatrist and Managing Consultant Call non-emergency contact if: you have any medication questions and your symptoms worsen Follow-up/Referrals: Edu Torre MD [Primary Care Provider] - Diet: Regular Addtl Attending Provider Instructions: Optional mobile apps we discussed: -Suicide safety plan -Virtual [employer] [facility] SPECIAL CARE INSTRUCTIONS: 1. Follow through with your scheduled aftercare appointments. If unable to keep an appointment, please call to reschedule. 2. Take your medication only as prescribed. Medication should not be changed or stopped without the approval of your doctor. In the event of worsening symptoms or concerns about side effects, contact your doctor immediately. 3. Utilize new healthy coping skills, anger management skills, and stress management skills learned during your hospitalization. Journal feelings and process them with a support person. Identify stressors or situations that may result in relapse, deterioration or inappropriate behaviors and develop a plan to deal with those issues. 4. If your coping skills are ineffective and you are in crisis, contact your outpatient providers for direction. If unable to reach your providers, please call the [facility] CRISIS LINE AT , go to the [facility] walk-in center at [address], [address], [place], or go to the closest Emergency Room. 5. Avoid alcohol and un-prescribed drugs. 6. You have been provided with the Mental Health Advance Directives Pamphlet for your review. 7. Your condition is stable for discharge to outpatient level of care, but recovery is an ongoing process. Ifthoughts to harm yourself or others return, follow the safety plan developed during your stay. Planning for a safe return home includes securing weapons. Our treatment team recommends weaponsbe removed from the home until your outpatient provider reassesses your progress. In rare cases where the items themselvescannot be removed, guns and ammunitionshould be secured separatelyand keys stored by a reliable personoutside of the home. If you were admitted on an involuntary commitment, the police or other legal authorities may be involved in this process. AFTERCARE APPOINTMENTS: * Please call your insurance company prior to your scheduled appointment to confirm your aftercare providers are covered. Take your insurance information to your appointments. WHO TO CALL AND WHEN: Medical Emergencies: For questions or emergencies related to your hospital stay, please contact the Inpatient Behavioral Health Unit at [phone]. A accounting clerk is on-call 14/04 for the Behavioral Health Unit for emergencies At any time you feel your situation is an emergency, you may also call 911 immediately. Pending Studies at Discharge: No Stand-Alone Forms: My [facility] Medications and DC Order Prescriptions: New lurasidone [Latuda] 40 mg Tablet 60 mg PO DAILY 30 Days Qty: 45 0RF Rx Instructions: Take with at least 350 calories of food clonazepam 0.5 mg Tablet 0.75 mg PO BID PRN (Reason: panic attack(s)) 30 Days Qty: 90 0RF Continued omeprazole 40 mg capsule,delayed release(DR/EC) 40 mg PO DAILYBB trazodone 100 mg tablet 200 mg PO HS topiramate 50 mg tablet 50 mg PO DAILY duloxetine 60 mg capsule,delayed release(DR/EC) 60 mg PO DAILY atorvastatin 40 mg tablet 40 mg PO DAILY levocetirizine 5 mg tablet 5 mg PO DAILY celecoxib 200 mg capsule 200 mg PO BID Rx Instructions: take with food benzonatate 100 mg capsule 100 mg PO TID PRN (Reason: Cough) Label Comments: States she was given this for Covid in August but does not remember when she last took it hydroxyzine HCl 50 mg tablet 50 mg PO TID oxcarbazepine 300 mg tablet 300 mg PO BID Lactase Enzyme 9,000 units PO ACHS PRN (Reason: Lactose Intolerance) Label Comments: Takes when needed Discontinued lurasidone [Latuda] 20 mg tablet 40 mg PO QAM Label Comments: States she was told to increase dose from 20 to 40 mg; started taking it at dinnertime because it was making her sleepy; states she thinks dose is too high Rx Instructions: Take 1 20 mg tablet daily in morning alprazolam 1 mg tablet 1 mg PO TID PRN (Reason: Anxiety) Label Comments: Patient states she usually takes twice a day in AM and around 3pm hydrocodone-acetaminophen 5-325 mg tablet 1 tab PO Q6 PRN (Reason: Pain, Severe) Discharge Orders: Discharge Order (Routine); Ordered 10/25/22 Ordered By: Jaja Jones Admission Data Admit Date/Time: 10/20/22 02:15 Attending Provider: Jaja Jones Admit Provider: Jan Darnell Primary Care Provider: Edu Torre Other Interventions: Discharge Summary Assessment (RN) Last Done: 10/25/22 12:19 PSY Interdisciplinary Discharge Planning Last Done: 10/25/22 15:00 Coding Level of Care Code 48881 D/C day mgmt > 30 min Diagnoses Major depressive disorder, recurrent, severe without psychotic features F33.2 EVANS (generalized anxiety disorder) F41.1 Time Spent (min) 40
[2022-10-25] MEDS ORDERED: DESTROY THIS MEDICATION ONE (13:00)
[2022-10-25] MEDS ORDERED: clonazePAM 0.25 MG TAB PO SCH (21:00)
== END 2022-10-25 15:03 | disposition home or self-care (01) | DRG 885 ==
LOC: ED 14:05 → 3S 10-20 02:15 → SUATTDRO 10-20 02:15 → 3S 10-20 03:27

== ENCOUNTER 2022-12-20 12:41 | Observation (INO) ==
--- NOTE | 2022-12-19 11:26 | Anesthesiology Consultation ---
Date of Service December 19, 2022 Assessment & Plan (1) Encounter for pre-operative examination: - record summary from [facility] [place]: "...suffering a fall down multiple stairs...left humerus fracture...left 4-8 rib fxs...repeat chest x-rays were completed and remained stable...concussion...mild cognitive deficit noted...complaining of loss of consciousness and approximately 5 minutes LOC...confused for EMS...Eye: R pupil 5 mm sluggish. L pupil 3 mm reactive...CT head: no evidence of acute intracranial abnormality...left temporal scalp hematoma and soft tissue swelling is identified measuring 10 x 36 mm. No evidence of skull fracture. Periventricular and subcortical white matter h ypoattenuation is identified most compatible with chronic small vessel ischemic changes. CT chest: the proximal and mid esophagus is dilated with gas and fluid. There is mild thickening of the distal esophagus which could represent underlying esophagitis. Linear atelectasis vs scarring is identified within the right lower lobe. Borderline cardiomegaly. Comminuted minimally displaced fracture of the proximal left humerus. Nondisplaced left lateral fourth through eighth rib fractures are identified. CT abdomen/pelvis: soft tissue gas is identified anterior to the liver within the right anterior abdominal musculature and extending to the skin within the right lateral abdominal wall from recent cholecystectomy. Soft tissue edema is identified lateral to the left hip. Status post cholecystectomy. Nonobstructive renal calculi identified within the left kidney. Fatty atrophy of the pancreas. CT cervical spine: degenerative changes of the cervical spine as detailed above. No evidence of acute fracture or malalignment of the cervical spine. CT thoracolumbar spine: no evidence of acute fracture or malalignment of the lumbar spine. No evidence of acute fracture or malalignment of the thoracic spine..." - Case discussed in detail with Dr. Gonsalez who advised pt is acceptable to proceed pending anesthesiologist evaluation am DOS. - s/p lap cholecystectomy 11/25/2223 Grade 2 view, MAC 3, ETT 7. - COVID screening: Per vulnerability assessment analyst on12/19: Travel screen negative, no known COVID-19 positive contacts or current COVID-19 related symptoms in past 2 weeks. To surgeon's discretion if preop COVID testing is needed. - Patient requiring admission post-operatively. Plan for recheck with COVID Rosales AM DOS due to possibility that patient may have a roommate. OR aware. Rosales order placed. Chart Review Chart Review: Acceptable Risk for Surgery and Patient NOT seen in Pre Admission Testing History Surgery Operation Date: 12/20/22 14:00 Proposed Procedures p Left Fracture Reverse Total Shoulder Arthroplasty - Leeroy Meier DO Height/Weight Height: 5 ft 4 in Weight: 77 kg Allergies Allergy/AdvReac Type Severity Reaction Status Date / Time morphine Allergy Intermediate Vomiting Verified 12/11/22 12:57 prochlorperazine Allergy Intermediate cant hold Verified 12/11/22 12:57 [From Compazine] head up or talk Medications Home Medications Medication Instructions Recorded Confirmed Last Taken atorvastatin 40 mg tablet (Lipitor) 40 mg PO QAM 10/19/22 12/19/22 11/24/22 21:30 celecoxib 200 mg capsule (Celebrex) 200 mg PO BID 10/19/22 12/19/22 11/24/22 21:00 duloxetine 60 mg capsule,delayed 60 mg PO QAM 10/19/22 12/19/22 11/25/22 07:00 release (Cymbalta) omeprazole 40 mg capsule,delayed 40 mg PO QAM 10/19/22 12/19/22 11/24/22 21:00 release topiramate 50 mg tablet (Topamax) 50 mg PO HS 10/19/22 12/19/22 11/24/22 21:00 trazodone 100 mg tablet 200 mg PO HS 10/19/22 12/19/22 11/24/22 21:00 clonazepam 0.5 mg tablet (Klonopin) 1 mg PO BID 11/22/22 12/19/22 11/25/22 07:00 oxybutynin chloride 5 mg 5 mg PO QAM 11/22/22 12/19/22 11/25/22 07:00 tablet,extended release 24 hr (Ditropan XL) hydrocodone 5 mg-acetaminophen 325 1 tab PO HS PRN Pain 11/25/22 12/19/22 Unknown mg tablet lurasidone 40 mg tablet (Latuda) 40 mg PO QPM 11/25/22 12/19/22 11/24/22 21:00 oxycodone-acetaminophen 5 mg-325 1 tab PO Q6H PRN pain #20 tabs 11/25/22 12/19/22 Unknown mg tablet (Percocet) oxycodone-acetaminophen 5 mg-325 1 tab PO Q6H PRN pain #30 tabs 12/17/22 12/19/22 Unknown mg tablet (Percocet) oxycodone 10 mg tablet 10 mg PO Q4H PRN Pain 12/19/22 12/19/22 Unknown Past Medical History Medical History (Updated 12/19/22 @ 15:17 by Alexandra Dunham PA-C) Anxiety Anxiety and depression Arthritis Bipolar disorder Cardiac murmur NO CARDS No murmur noted in ER on 10/20/22 or during GI office visit 10/14/22 Concussion fall down stairs 11/26/22, ct head negative Dementia Depression with suicidal ideation History of COVID-19 08/25/[address] [facility] >symptoms resolved Hyperlipidemia Migraine Rib fractures 4-8th ribs 11/26/22, no pneumothorax per records Seizure "CAN'T REMEMBER LAST SEIZURE, BEEN A LONG TIME">DOES NOT FOLLOW WITH NEUROLOGIST Stress incontinence Past Surgical History Surgical History (Updated 12/19/22 @ 12:15 by Dolores Coburn) Family history of reaction to anesthesia MOTHER>NAUSEA H/O knee surgery RT History of hysterectomy History of tonsillectomy Hx laparoscopic cholecystectomy Nausea and vomiting after administration of anesthetic agent Social History Smoking Status: Never smoker Hx Alcohol Use: No substance use type: does not use Lab Results Anesthesia Preop Results Results Anesthesia Widget: WBC 6.66 K/ul (4.8-10.8) 12/17/22 Hgb 11.9 g/dl (12.0-16.0) L 12/17/22 Hct 36.7 % (37.0-47.0) L 12/17/22 Plt 324 K/uL (130-400) 12/17/22 Na 141 mmol/L (136-145) 12/17/22 K 3.5 mmol/L (3.5-5.1) 12/17/22 Cl 108 mmol/L (98-107) H 12/17/22 CO2 27 mmol/L (21-32) 12/17/22 BUN 19 mg/dl (6-23) 12/17/22 Creat 0.80 mg/dl (0.6-1.2) 12/17/22 Glucose Level 96 mg/dl (70-99(Fasting)) 12/17/22 PT 10.6 Seconds (9.0-12.0) 12/17/22 PTT 25.4 Seconds (21.0-31.0) 12/17/22 INR 1.0 (0.9-1.1) 12/17/22 Blood Type O Positive 12/17/22 Antibody Screen NEGATIVE 12/17/22 Testing Electrocardiogram Date: 11/25/22 NSR, rate 89 bpm Possible LA enlargement Chest X-Ray Date: 12/17/22 Cardiac silhouette is mildly enlarged. Eventration of the right hemidiaphragm. Subsegmental bibasilar densities. No pneumothorax, large pleural effusion or overt pulmonary edema. Degenerative changes of the shoulders and spine. Unchanged appearance of the comminuted and displaced left proximal humeral fracture deformity. Cholecystectomy. IMPRESSION: 1. Cardiomegaly with mild subsegmental bibasilar atelectasis. 2. Unchanged appearance of the left proximal humeral fracture deformity. Cervical Spine Date: 10/19/22 CT No fractures within the cervical spine. Other Testing Head CT 10/19/22 No acute intracranial abnormality.
--- NOTE | 2022-12-20 12:07 | History & Physical Bridge Note ---
Date of Service December 20, 2022 History & Physical Bridge Note I have examined the patient, reviewed the History & Physical and in the interval since the performance of the History & Physical I have noted the following changes of clinical significance: no changes noted
[~2022-12-20 12:41] MED LIST: ACETAMINOPHEN 500 MG TAB PO SCH; BUPIVACAINE 0.5 % 5 MG/1 ML PF 10ML VIAL ONE; FAMOTIDINE 20 MG TAB PO SCH; GABAPENTIN 300 MG CAP PO SCH; LR 15ML/HR IV SCH; LR 60ML/HR IV SCH; ORTHO JOINT MIX INFIL SCH; TRANEXAMIC ACID 1,000 MG **IV Intra-op IV SCH; TRANEXAMIC ACID 1,000 MG **IV Pre-op IV SCH; ceFAZolin 2000MG 2,000 MG/15 ML SYR IV SCH; dexAMETHasone 4 MG TAB PO SCH
[2022-12-20] MEDS ORDERED: ORTHO JOINT ANESTHETIC ONE (13:25)
[2022-12-20] MEDS ORDERED: MIDAZOLAM HCL 1 MG/ML 2ML VIAL ONE (13:31)
[2022-12-20] MEDS ORDERED: fentaNYL citrate PF 100 MCG/2 ML VIAL ONE (13:31)
[2022-12-20] MEDS ORDERED: ATROPINE SULFATE 0.1 MG/ML 10ML SYR IV PRN (13:58)
[2022-12-20] MEDS ORDERED: SCOPOLAMINE 1 MG TDSY TD ONE ×2 (13:58→13:59)
[2022-12-20] MEDS ORDERED: ONDANSETRON INJ 2 MG/ML 2 ML VIAL IV PRN ×2 (13:58→17:21)
[2022-12-20] MEDS ORDERED: fentaNYL citrate PF 100 MCG/2 ML VIAL IV PRN (13:58)
[2022-12-20] MEDS ORDERED: KETOROLAC TROMETHAMINE 15 MG/ML VIAL IV PRN (14:09)
[2022-12-20] MEDS ORDERED: DEXAMETHASONE SOD INJ 4 MG/ML VIAL ONE (14:32)
[2022-12-20] MEDS ORDERED: PROPOFOL IV EMULSION 10 MG/ML 20 ML VIAL IV ONE ×2 (14:32→14:34)
[2022-12-20] MEDS ORDERED: ePHEDrine sulfate 50 MG/ML AMP ONE (14:32)
[2022-12-20] MEDS ORDERED: ONDANSETRON INJ 2 MG/ML 2 ML VIAL ONE (14:32)
[2022-12-20] MEDS ORDERED: CHECK SCOPOLAMINE PATCH PLACEMENT SCH (16:00)
--- NOTE | 2022-12-20 16:08 | Operative Report ---
PG Post Operative Report Pre & Post Diagnosis Operation Date: 12/20/22 14:00 Pre-Op Diagnosis: Left proximal humerus fracture Post-Op Diagnosis: Left proximal humerus fracture I identified the patient and participated in the time-out.: Yes Procedure Operation Date: 12/20/22 14:00 Actual Procedures p Left Fracture Reverse Total Shoulder Arthroplasty(Left) - Leeroy Meier DO Surgeon Leeroy Meier DO Building Maintenance Technician Meet Mcgill PA-C Estimated Blood Loss 300 Findings Consistent with Post-Op Diagnosis Specimens Left humeral head Description of Procedure Implants used: I used a Biomet Comprehensive fracture reverse total shoulder arthroplasty system with a size 12 press fit standard fracture humeral stem, a +6 offset humeral tray and a standard humeral bearing, a 25 mm baseplate with a 6.5 mm central screw and superior and inferior locking screws, and a size 36 mm eccentric glenosphere. Lulu arrived at [facility] for the above procedure. She was seen in the preoperative holding area and the operative extremity was identified and signed. She was given a preoperative antibiotic, TXA, and an interscalene nerve block. She was taken back to the operating room, laid on table in supine position, and put under general anesthesia. She was then put into the beachchair position. The shoulder was then prepped and draped in sterile fashion. A timeout was done and the patient and the operative extremity was properly identified. A deltopectoral approach was used. Dissection was taken down through the fascia and the deltoid was retracted laterally and the conjoined tendon was retracted medially. The fracture was easily exposed. The biceps groove was opened up and the biceps tendon was examined extensively. T the biceps tendon was very frayed and was tenotomized. An oscillating saw and osteotome were then used to separate the lesser tuberosity fragment and the greater tuberosity fragment from the humeral head. The humeral head was then removed. Time was then spent shaping the greater and lesser tuberosities. Four #5 FiberWire sutures were passed through the infraspinatus at its articular junction. These would later be used for a repair of the rotator cuff around the prosthesis. The glenoid was then easily exposed. Time was spent doing a complete circumferential capsular release. The glenoid guide was then placed in the inferior aspect of the glenoid. A 3.2 mm Steinmann pin was then placed into the glenoid vault at 10 of inclination. The glenoid baseplate was then reamed. The final size 25 mm baseplate was then impacted in the place. A 6.5 mm central screw was then placed followed by superior and inferior locking screws. A 36 mm eccentric glenosphere was then impacted into place. Surrounding soft tissues were then injected with 100 cc an orthopedic pain control cocktail. The proximal humerus was then exposed. A canal finding reamer was sent down the center of the humeral canal. Sequential reaming up to a size 12 reamer was done. A 12 trial humeral stem was then impacted into place at 25 degrees of retroversion. A +6 offset humeral tray was then placed on the humeral trial stem and the shoulder was reduced. The shoulder was brought through a full range of motion and felt to be stable. Two #5 FiberWire sutures were passed through the humeral shaft for later rotator cuff and tuberosity fixation. The final size 12 standard fracture humeral stem was then impacted into place. A standard humeral bearing was snapped onto a +6 offset humeral tray. The humeral tray was then impacted on the humeral stem. The shoulder was then reduced. The shoulder was brought through a full range of motion and felt to be stable. 2 of the FiberWire sutures were passed through the holes of the fracture stem and passed around the stem to reduce the greater tuberosity. 2 additional sutures were passed through holes of the fracture stem and passed around the stem to reduce the lesser tuberosity. The 2 humeral shaft sutures were used to pull down the lesser tuberosity and the greater tuberosity to keep them from migrating medially. The shoulder was brought through a full range of motion. I was happy with the overall reduction of the tuberosities and the motion of the shoulder. A dilute betadyne lavage was then done for 3 minutes. The joint was then irrigated with normal saline solution. Hemostasis was obtained. The interval was closed with 2-0 Vicryl suture. The skin was then closed with 2-0 Vicryl and crow. A Silverlon dressing was placed and the arm was rested in a regular arm sling. She was then extubated and transferred to a hospital bed. She taken to the postanesthesia care unit in stable condition. She tolerated the procedure well. Meet Mcgill PA-C, was present for the entire procedure. He was critical for patient positioning, prepping, draping, retraction exposure, wound closure and application of sterile dressing. I attest to the content of the Intraoperative Record and any orders documented therein. Any exceptions are noted below.
[2022-12-20] MEDS ORDERED: METOCLOPRAMIDE HCL INJ 5 MG/ML 2 ML VIAL IV PRN (17:21)
[2022-12-20] MEDS ORDERED: MAGNESIUM HYDROXIDE SUSP 30 ML UDC PO PRN (17:21)
[2022-12-20] MEDS ORDERED: bisacodyL 10 MG SUPP PR PRN (17:21)
[2022-12-20] MEDS ORDERED: NALOXONE HCL 0.4 MG/1 ML VIAL/CARP IV PRN (17:21)
--- NOTE | 2022-12-20 17:30 | XRay Report ---
XR shoulder LT min 2V routine CLINICAL HISTORY: Post shoulder surgery COMPARISON STUDY: Left shoulder CT 11/27/2022. FINDINGS: Status post reverse left total shoulder arthroplasty. The hardware appears intact. Skin sta ples are in place. There is residual bony fragment at the fractured humeral head. No acute fracture o r dislocation. IMPRESSION: Status post reverse left total shoulder arthroplasty. No evidence for hardware complicat ion. ACT 112: Negative or not required by law. Electronically signed by: Feliciano Vera M.D. 12/20/2022 5:28 PM
[2022-12-20] MEDS: SODIUM CHLORIDE 0.9% 1000ML 1,000 ML IV SCH (17:52)
--- NOTE | 2022-12-20 18:39 | Anesthesiology Progress Note ---
Date of Service December 20, 2022 Anesthesia Post Procedure Vital Signs Vital Signs: Temp Pulse Pulse Resp BP Pulse Ox O2 Del Method 12/20/22 18:08 36.3 C L 94 H 18 113/65 94 Room Air 12/20/22 17:40 37 C 89 18 108/77 95 Room Air 12/20/22 17:41 Nasal Cannula 12/20/22 17:10 36.3 C L 83 18 130/73 100 Room Air 12/20/22 16:50 36.2 C L 91 H 22 120/70 96 Nasal Cannula 12/20/22 16:40 36.0 C L 94 H 16 119/73 98 Nasal Cannula 12/20/22 16:30 36.0 C L 103 H 16 118/78 100 Oxymask 12/20/22 16:18 36.0 C L 98 H 16 158/61 H 93 Oxymask 12/20/22 13:04 Room Air 12/20/22 13:04 37.2 C 83 20 160/75 H 96 Room Air O2 Flow Rate 12/20/22 18:08 12/20/22 17:40 12/20/22 17:41 2 12/20/22 17:10 2 12/20/22 16:50 3 12/20/22 16:40 3 12/20/22 16:30 5 12/20/22 16:18 8 12/20/22 13:04 12/20/22 13:04 Pain Intensity Left Shoulder: Pain Intensity: 0 Transfer of Care Handoff Completed per policy Notes Mental Status: alert / awake / arousable and participated in evaluation Patient Amnestic to Procedure: Yes Nausea / Vomiting: adequately controlled Pain: adequately controlled Airway Patency, RR, SpO2: stable & adequate BP & HR: stable & adequate Hydration State: stable & adequate Anesthetic Complications: no major complications apparent and Pt Satisfied with anesthetic care
[2022-12-20] MEDS: DOCUSATE SODIUM 100 MG CAP PO SCH (20:50)
[2022-12-20] MEDS: SENNA 8.6 MG TAB PO SCH (20:50)
[2022-12-20] MEDS: traZODone HCL 100 MG TAB PO SCH (20:50)
[2022-12-20] MEDS: TOPIRAMATE 50 MG TAB PO SCH (20:51)
[2022-12-20] MEDS: LURASIDONE HCL 40 MG TAB PO SCH (20:51)
[2022-12-20] MEDS: clonazePAM 1 MG TAB PO SCH (20:53)
[2022-12-20] MEDS: ceFAZolin 2000MG 2,000 MG/15 ML SYR IV SCH (22:14)
[2022-12-21] MEDS: SODIUM CHLORIDE 0.9% 1000ML 1,000 ML IV SCH (03:21)
[2022-12-21] MEDS: ceFAZolin 2000MG 2,000 MG/15 ML SYR IV SCH (06:02)
--- NOTE | 2022-12-21 06:39 | Orthopedic Progress Note ---
Date of Service December 21, 2022 Assessment & Plan (1) Status post reverse total replacement of left shoulder: Overall she is doing very well. She is not having much pain in the left shoulder. The nerve block is still in effect. She will be seen by physical therapy today for ambulation and range of motion exercises. We will see how she does today with physical therapy. If she does well and her pain is well controlled, she can be discharged to home. Otherwise, we will keep her until tomorrow. Subjective Lulu was seen and examined at bedside this morning. Overall she is doing okay. She is not having any pain in the left shoulder. The nerve block is still in effect. She has no complaints.. Review of Systems All systems reviewed & are unremarkable except as noted in HPI & below. Physical Exam On physical examination of the left shoulder, the dressing is clean and dry. She does not have any motion of her hand or her wrist yet because of the nerve block.. Results & Data Results & Data Laboratory Results . Diagnostic Findings Postoperative x-rays of the left shoulder show the prosthesis to be in anatomic alignment without any evidence of fracture, dislocation, or loosening. PG Care Time/CCT Total # of Minutes Spent Total Time Spent with Patient: Total time spent is greater than 50% in coordination of care (as documented) at patient's floor/unit and/or counseling patient: Coding Level of Care Code 91764 Post Operative Follow-Up Diagnoses Status post reverse total replacement of left shoulder Z96.612
[2022-12-21] MEDS ORDERED: dexAMETHasone 4 MG TAB PO SCH (08:00)
[2022-12-21] MEDS: OXYBUTYNIN CHLORIDE XL 5 MG TABCR PO SCH (08:42)
[2022-12-21] MEDS: DULoxetine HCL 60 MG CAP PO SCH (08:42)
[2022-12-21] MEDS: ATORVASTATIN 40 MG TAB PO SCH (08:42)
[2022-12-21] MEDS: PANTOprazole 40 MG TAB PO SCH (08:42)
[2022-12-21] MEDS: DOCUSATE SODIUM 100 MG CAP PO SCH ×2 (08:42→20:09)
[2022-12-21] MEDS: MULTIVITAMIN TAB PO SCH (08:42)
[2022-12-21] MEDS: clonazePAM 1 MG TAB PO SCH ×2 (08:45→20:09)
[2022-12-21] MEDS: oxyCODONE HCL IR 5 MG TAB (IMMEDIATE RELEASE) PO PRN ×2 (18:47→23:28)
[2022-12-21] MEDS: SENNA 8.6 MG TAB PO SCH (20:10)
[2022-12-21] MEDS: LURASIDONE HCL 40 MG TAB PO SCH (20:10)
[2022-12-21] MEDS: TOPIRAMATE 50 MG TAB PO SCH (20:10)
[2022-12-21] MEDS: traZODone HCL 100 MG TAB PO SCH (21:14)
[2022-12-22] MEDS: oxyCODONE HCL IR 5 MG TAB (IMMEDIATE RELEASE) PO PRN ×3 (03:24→13:15)
--- NOTE | 2022-12-22 08:06 | Orthopedic Progress Note ---
Date of Service December 22, 2022 Assessment & Plan (1) Status post reverse total replacement of left shoulder: Overall she is doing okay. She not having too much pain in the left shoulder. She will be seen by physical therapy today for ambulation. She really does not want to go back to a rehab facility. Before I did the procedure, the family said they were happy to take her home postoperatively. She should be stable for discharge to home later today. She will follow-up with orthopedics in 2 weeks. Subjective Lulu was seen and examined at bedside this morning. Overall she is doing fairly well. She is not having too much pain in the left shoulder. She was a little unsteady yesterday with physical therapy. She has no other complaints.. Review of Systems All systems reviewed & are unremarkable except as noted in HPI & below. Physical Exam On physical examination of left shoulder, the dressing is clean and dry. She is wearing her sling as instructed. She has full motion of her hand and her wrist.. Results & Data Results & Data Laboratory Results . Diagnostic Findings Postoperative x-rays of the left shoulder show the prosthesis to be in anatomic alignment without any evidence of fracture, desiccation, or loosening. PG Care Time/CCT Total # of Minutes Spent Total Time Spent with Patient: Total time spent is greater than 50% in coordination of care (as documented) at patient's floor/unit and/or counseling patient: Coding Level of Care Code 57508 Post Operative Follow-Up Diagnoses Status post reverse total replacement of left shoulder Z96.612
--- NOTE | 2022-12-22 08:07 | Discharge Summary ---
Date of Service December 22, 2022 Principal Diagnosis Same as "Discharge Diagnosis" noted below under Discharge Instructions. Discharge Exam On physical examination of left shoulder, the dressing is clean and dry. She is wearing her sling as instructed. She has full motion of her hand and her wrist.. Discharge Data Procedures Performed Operation Date: 12/20/22 14:00 Actual Procedures p Left Fracture Reverse Total Shoulder Arthroplasty(Left) - Leeroy Meier DO Ordered Studies 12/20/22 05:00 US - OR guided needle placemen Routine Hospital Course (1) Status post reverse total replacement of left shoulder: On December 20, [address] [facility] and underwent a left fracture reverse shoulder replacement without complication. She had a general anesthetic and a left interscalene nerve block. Postoperatively she was placed in a sling and transferred to the general orthopedic floors. Her hospital course was uneventful. On postop day #1, she was seen by physical therapy. She was little bit unsteady on her feet. She was having some soreness in her shoulder. The decision was made to keep her in extra night. On postop day #2 she was feeling better. She worked fairly well with physical therapy. The family was willing to take her home. She was then discharged home. She will follow-up with orthopedics in 2 weeks. PG Care Time/CCT Total # of Minutes Spent Total Time Spent with Patient: Total time spent is greater than 50% in coordination of care (as documented) at patient's floor/unit and/or counseling patient: Discharge Plan Discharge Items Patient Disposition: Home - Home Health Services Reason For Visit: POST OP Discharge Diagnosis: Left reverse shoulder replacement Activity: Per Instructions section Non-emergency contact: Surgeon Call non-emergency contact if: your wound has increased redness and your wound has increased drainage Follow-up/Referrals: Edu Torre MD [Primary Care Provider] - Diet: Regular Addtl Attending Provider Instructions: Activity and Therapy Recommendations: * If you are using [facility] then therapy will be provided at your home until they feel you have accomplished all of your goals. * If you are using [facility] then Physical Therapy will be provided until they feel you are ready to start Outpatient Physical Therapy. * If you are not using home therapy then Outpatient Physical Therapy should start about 3-5 days from your day of surgery. Therapy will last about 8-12 weeks * Wear your sling for 3 weeks, unless otherwise instructed. You may remove your sling to shower and to dress, but otherwise, you should be in your sling at all times, including while sleeping * The shoulder replacement is very stable and you can use your hand while in the sling * You were shown a series of exercises in the hospital. Do these exercises daily including the exercises you were shown in physical therapy. Medications: * Narcotic You will likely be sent home from the hospital with a prescription for the narcotic pain medication that worked best throughout your stay. * Other medications may be prescribed for specific circumstances. If you have any questions, please call the office at . * Resume previous home medications unless otherwise instructed Dressing Care: Leave the Silverlon dressing in place for 7 days. After 7 days you may remove the dressing. If the incision is not draining then you may leave the crow open to air. If there is a little bit of drainage or if the crow are getting stuck on your clothing then cover the incision with a dry dressing. The crow will be removed at your 2 week follow-up appointment. Showering: You may shower with the Silverlon dressing in place. Do not let the shower spray hit the dressing directly. Pat the Silverlon dressing dry. If the dressing becomes wet underneath, then simply remove the dressing. Keep the incision dry until you are 7 days out from the day of surgery. After 7 days you may remove the Silverlon dressing and shower with the crow exposed. Let soapy water run over the crow and pat them dry. Do not scrub or soak the incision. Things To Watch For: * Drainage from the incision site that occurs more than one week after your surgery. * Increased redness at the incision site. * Fever above 102 degrees Fahrenheit. * Unusual chest pain or shortness of breath. * Call [facility] at with any of the above problems Follow-Up Visit: Follow-up with Dr. Meier's PA (Leeroy Mata) 2-3 weeks after your day of surgery. He will remove your crow and answer any questions. If you have any additional questions or concerns, Dr Meier is usually in the office at the same time and will be available An appointment was probably scheduled when you signed-up for surgery in the office. If you have any questions call More detailed instructions as well as Frequently Asked Questions were provided in a folder by our office when you signed-up for surgery. Please review these instructions when you get home. If you have any further questions or concerns, please feel free to call the office at [phone] Pending Studies at Discharge: No Stand-Alone Forms: [facility] Medications and DC Order Prescriptions: Continued omeprazole 40 mg capsule,delayed release(DR/EC) 40 mg PO QAM trazodone 100 mg tablet 200 mg PO HS topiramate [Topamax] 50 mg tablet 50 mg PO HS duloxetine [Cymbalta] 60 mg capsule,delayed release(DR/EC) 60 mg PO QAM atorvastatin [Lipitor] 40 mg tablet 40 mg PO QAM celecoxib [Celebrex] 200 mg capsule 200 mg PO BID Rx Instructions: take with food oxycodone-acetaminophen [Percocet] 5-325 mg tablet 1 tab PO Q6H PRN (Reason: pain) Qty: 30 0RF oxybutynin chloride [Ditropan XL] 5 mg Tablet Extended Release 24hr 5 mg PO QAM clonazepam [Klonopin] 0.5 mg Tablet 1 mg PO BID lurasidone [Latuda] 40 mg Tablet 40 mg PO QPM Rx Instructions: must administer with food (at least 350 calories) Admission Data Admit Date/Time: 12/20/22 16:20 Attending Provider: Leeroy Meier Admit Provider: Leeroy Meier Primary Care Provider: Edu Torre Other Providers: [facility]
[2022-12-22] MEDS: PANTOprazole 40 MG TAB PO SCH (09:04)
[2022-12-22] MEDS: DOCUSATE SODIUM 100 MG CAP PO SCH (09:04)
[2022-12-22] MEDS: OXYBUTYNIN CHLORIDE XL 5 MG TABCR PO SCH (09:04)
[2022-12-22] MEDS: ATORVASTATIN 40 MG TAB PO SCH (09:04)
[2022-12-22] MEDS: DULoxetine HCL 60 MG CAP PO SCH (09:04)
[2022-12-22] MEDS: clonazePAM 1 MG TAB PO SCH (09:04)
[2022-12-22] MEDS: MULTIVITAMIN TAB PO SCH (09:04)
== END 2022-12-22 13:30 | disposition home health service (06) ==
LOC: ASU 12:41 → 3E 12:41

== ENCOUNTER 2024-04-20 21:30 | Inpatient (IN) ==
--- NOTE | 2024-04-20 21:59 | Emergency Department Note ---
Impression & Plan Overdose ADMIT ED Provider Note HPI: History obtained from patient and patient's daughter at the bedside. The patient is a 68-year-old female with history of generalized anxiety disorder, major depressive disorder, who presents the emergency department with a chief complaint of intentional drug overdose. Patient states that at approximately 6:45 PM she took all of her bottle of propranolol. Patient is unsure of how much was actually in this bottle. She states she did did do this as a suicide attempt because she had an argument with her daughter earlier this evening and she was feeling very upset. On arrival here to the ER the patient is hemodynamically stable, she is alert, heart rate is within normal limits in the 60s, patient's blood pressure is 164/92 on my assessment. ROS: - Per HPI Differential Diagnosis: Suicide attempt, beta-margo overdose, other drug ingestion, symptomatic bradycardia, hypotension secondary to beta-margo overdose, amongst other potential pathologies. *Outpatient medications and allergy history reviewed. PE: General: Alert HEENT: Normocephalic, trachea midline Eyes: Extraocular eye movement is intact, no scleral erythema Pulmonary: Clear to auscultation bilaterally, no wheezing Cardio: Regular rate and rhythm GI: Abdomen is soft to palpation : No suprapubic tenderness MSK: No evidence of trauma or malformation of the extremities, no edema Skin: No evidence of rash Neuro: Alert, no focal deficits Psychiatric: Cooperative INDEPENDENT INTERPRETATIONS: hospital monitor: (As interpreted by myself): - An order was placed for continuous cardiac monitoring - Patient was noted to be in sinus rhythm with a rate of 62 EKG: (As interpreted by myself): Rate: 63 Rhythm: Normal sinus rhythm Intervals: Within normal limits ST changes: No ST elevation Time: 2141 Interventions provided in ED: -IV fluid bolus Medical Decision Making: IV was established and lab work obtained, patient was placed on manager monitoring. Patient is actually slightly hypertensive on arrival here to the ED and heart rate is within normal limits. She is alert and able to answer my questions on arrival. She does state that she took some amount appropriately and all tonight but she is unclear on exactly how much. Patient tells me she took "3 handfuls". I discussed the patient's presentation with [facility], at this time given the patient's hemodynamic stability they recommend supportive care with IV fluids and close monitoring with EKG every 4 hours. Patient's initial EKG does not show any evidence of QRS widening and heart rate does remain within normal limits. Lab work was obtained and shows no leukocytosis, hemoglobin is normal, platelet count is normal, CMP does not show any critical findings, initial troponin was noted to be elevated at 66. Patient denies any chest pain, EKG does not show any acute ischemic changes, low suspicion for ACS at this time. Patient will require medical admission for further management in regards to troponin elevation and further observation should she develop any symptoms from beta- margo overdose. I therefore did discuss the patient's presentation with the on-call hospitalist for [facility], Dr. Fisher, and the patient was placed for admission in stable condition. Patient and her daughter at the bedside are in agreement to this plan. Consultants/Discussions held with other healthcare providers: -Hospitalist, Dr. Fisher -Poison Control Center Disposition discussion held by myself with: -Patient and patient's daughter at the bedside Diagnosis: 1. Intentional drug ingestion as a suicide attempt 2. Propranolol overdose/ingestion 3. Elevated high-sensitivity troponin level, acute, nonspecific Disposition: Admission Jan Alvarez DO Emergency Medicine Past Med/Surg History Problem List (Updated 04/21/24 @ 01:18 by Jan Alvarez DO) Overdose (Acute) Right leg injury (Acute) Status post reverse total replacement of left shoulder (~11/2022) COVID-19 (Acute) Major depressive disorder, recurrent, severe without psychotic features EVANS (generalized anxiety disorder) Encounter for pre-operative examination Chronic cholecystitis with calculus Proximal humerus fracture Medical History Anxiety Anxiety and depression Arthritis Bipolar disorder Cardiac murmur NO CARDS No murmur noted in ER on 10/20/22 or during GI office visit 10/14/22 Concussion fall down stairs 11/26/22, ct head negative Dementia Depression with suicidal ideation History of COVID-19 08/25/22 per records at [facility] >symptoms resolved Hyperlipidemia Migraine Rib fractures 4-8th ribs 11/26/22, no pneumothorax per records Seizure "CAN'T REMEMBER LAST SEIZURE, BEEN A LONG TIME">DOES NOT FOLLOW WITH NEUROLOGIST Stress incontinence Surgical History Family history of reaction to anesthesia MOTHER>NAUSEA H/O knee surgery RT History of hysterectomy History of tonsillectomy Hx laparoscopic cholecystectomy Nausea and vomiting after administration of anesthetic agent Social History Smoking Status: Unknown if ever smoked Second Hand Exposure: Yes; Do You Dip or Chew Tobacco: No; Hx Alcohol Use: No Hx Substance Use: No Preferred Language: Brazilian Communication Ability: Effective [employer] Pump Tender Required: No Beliefs That Will Affect Care: None Current Living Situation: Family Current Living Situation Comment: LIVES W/DTR CRYSTAL Feels Safe at Home: Yes Gender Identity: Female Assistive Devices: Bedside Commode and Cane Allergies Allergies Allergy/AdvReac Type Severity Reaction Status Date / Time morphine AdvReac Intermediate room Verified 04/20/24 22:14 spins,violent vomiting prochlorperazine AdvReac Intermediate GENERALIZED Verified 04/20/24 22:14 [From Compazine] WEAKNESS Home Meds Home Medications Medication Instructions Recorded Confirmed omeprazole 40 mg capsule,delayed 40 mg PO DAILYBB 10/19/22 04/20/24 release trazodone 100 mg tablet 200 mg PO HS 10/19/22 04/20/24 clonazepam 0.5 mg tablet (Klonopin) 1 mg PO BID Anxiety 11/22/22 04/20/24 alendronate 70 mg tablet 70 mg PO WK 04/20/24 04/20/24 aripiprazole 15 mg tablet 15 mg PO HS 04/20/24 04/20/24 calcium polycarbophil 625 mg 625 mg PO DAILY 04/20/24 04/20/24 tablet (FiberCon) cranberry extract-vitamin C 250 1 cap PO DAILY PRN NEEDED 04/20/24 04/20/24 mg-60 mg capsule (Azo Cranberry Plus Vit C) duloxetine 20 mg capsule,delayed 20 mg PO QPM 04/20/24 04/20/24 release duloxetine 30 mg capsule,delayed 30 mg PO BID 04/20/24 04/20/24 release estradiol 0.01% (0.1 mg/gram) 0.5 g vaginal BID 04/20/24 04/20/24 vaginal cream hydrocodone 5 mg-acetaminophen 325 1 tab PO Q6H PRN Pain 04/20/24 04/20/24 mg tablet levocetirizine 5 mg tablet (Xyzal) 5 mg PO PM 04/20/24 04/20/24 mirabegron 50 mg tablet,extended 50 mg PO QAM 04/20/24 04/20/24 release 24 hr (Myrbetriq) polyethylene glycol 3350 17 119 g PO DAILY PRN Constipation 04/20/24 04/20/24 gram/dose oral powder (Miralax) propranolol 10 mg tablet 10 mg PO BID 04/20/24 04/20/24 topiramate 50 mg tablet 50 mg PO QPM 04/20/24 04/20/24 Results & Data (ED) Vital Signs Vital Signs - 24 hr 04/20/24 21:57 04/20/24 21:58 04/20/24 21:58 Temperature 37.1 C Temperature Source Oral Pulse Rate 62 63 Pulse Rate [Apical] Pulse Rate from SpO2 Sensor 63 Respiratory Rate 17 14 Respiratory Depth Shallow Shallow Blood Pressure 158/74 H Blood Pressure [Right Arm] Blood Pressure Mean 102 Blood Pressure Mean [Right Arm] Pulse Oximetry 97 96 Oxygen Delivery Method Room Air Sepsis Recent Fever Within 48 Hours No Sepsis New/Unexplained Change in Mental Status No Sepsis Action Taken by Nursing No Action Required End-Tidal CO2 44 End Tidal CO2 (18-54mmHg) 04/20/24 21:58 04/20/24 21:58 04/20/24 21:59 Temperature Temperature Source Pulse Rate 61 Pulse Rate [Apical] 63 Pulse Rate from SpO2 Sensor Respiratory Rate 14 Respiratory Depth Shallow Blood Pressure Blood Pressure [Right Arm] 158/74 H Blood Pressure Mean Blood Pressure Mean [Right Arm] 102 Pulse Oximetry 97 97 Oxygen Delivery Method Room Air Room Air Sepsis Recent Fever Within 48 Hours Sepsis New/Unexplained Change in Mental Status Sepsis Action Taken by Nursing End-Tidal CO2 End Tidal CO2 (18-54mmHg) 44 04/20/24 22:00 04/20/24 22:00 04/20/24 22:00 Temperature Temperature Source Pulse Rate 61 Pulse Rate [Apical] Pulse Rate from SpO2 Sensor 62 Respiratory Rate 15 Respiratory Depth Blood Pressure 158/74 H 158/74 H Blood Pressure [Right Arm] Blood Pressure Mean 88 88 Blood Pressure Mean [Right Arm] Pulse Oximetry 96 Oxygen Delivery Method Sepsis Recent Fever Within 48 Hours Sepsis New/Unexplained Change in Mental Status Sepsis Action Taken by Nursing End-Tidal CO2 37 End Tidal CO2 (18-54mmHg) 04/20/24 22:07 04/20/24 22:15 04/20/24 22:15 Temperature Temperature Source Pulse Rate 61 59 L Pulse Rate [Apical] Pulse Rate from SpO2 Sensor Respiratory Rate 18 13 Respiratory Depth Blood Pressure 137/61 Blood Pressure [Right Arm] Blood Pressure Mean 81 Blood Pressure Mean [Right Arm] Pulse Oximetry 95 Oxygen Delivery Method Room Air Sepsis Recent Fever Within 48 Hours Sepsis New/Unexplained Change in Mental Status Sepsis Action Taken by Nursing End-Tidal CO2 41 End Tidal CO2 (18-54mmHg) 04/20/24 22:15 04/20/24 22:24 04/20/24 22:30 Temperature Temperature Source Pulse Rate 62 Pulse Rate [Apical] Pulse Rate from SpO2 Sensor Respiratory Rate 20 Respiratory Depth Blood Pressure 137/61 158/72 H Blood Pressure [Right Arm] Blood Pressure Mean 81 90 Blood Pressure Mean [Right Arm] Pulse Oximetry Oxygen Delivery Method Sepsis Recent Fever Within 48 Hours Sepsis New/Unexplained Change in Mental Status Sepsis Action Taken by Nursing End-Tidal CO2 42 End Tidal CO2 (18-54mmHg) 04/20/24 22:45 04/20/24 22:51 Temperature Temperature Source Pulse Rate 60 61 Pulse Rate [Apical] Pulse Rate from SpO2 Sensor 59 L 62 Respiratory Rate 12 12 Respiratory Depth Blood Pressure Blood Pressure [Right Arm] Blood Pressure Mean Blood Pressure Mean [Right Arm] Pulse Oximetry 97 95 Oxygen Delivery Method Sepsis Recent Fever Within 48 Hours Sepsis New/Unexplained Change in Mental Status Sepsis Action Taken by Nursing End-Tidal CO2 38 44 End Tidal CO2 (18-54mmHg) Laboratory Data 04/20/24 21:44 04/20/24 21:44 Lab Results 04/20/24 04/21/24 Range/Units 21:44 00:08 WBC 7.77 (4.8-10.8) K/ul RBC 4.16 L (4.20-5.40) M/uL Hgb 12.9 (12.0-16.0) g/dl Hct 38.0 (37.0-47.0) % MCV 91.3 (80.0-100.0) fL MCH 31.0 (25.0-34.0) pg MCHC 33.9 (32.0-36.0) g/dL RDW Std Deviation 41.5 (36.4-46.3) fL RDW Coeff of Zonia 12.4 (11.5-14.5) % Plt Count 175 (130-400) K/uL MPV 9.7 (9.4-12.4) fL Immature Gran % (Auto) 0.3 % Neut % (Auto) 69.4 % Lymph % (Auto) 24.3 % [place] % (Auto) 5.4 % Eos % (Auto) 0.0 % Baso % (Auto) 0.6 % Neut # (Auto) 5.39 (1.40-6.50) K/uL Lymph # (Auto) 1.89 (1.20-3.40) K/uL [place] # (Auto) 0.42 (0.11-0.59) K/uL Eos # (Auto) 0.00 (0.00-0.50) K/uL Baso # (Auto) 0.05 (0.00-0.20) K/uL Immature Gran # (Auto) 0.02 (0.01-0.20) K/uL Sodium 139 (136-145) mmol/L Potassium 3.8 (3.5-5.1) mmol/L Chloride 106 (98-107) mmol/L Carbon Dioxide 27 (21-32) mmol/L Anion Gap 6 (3-11) BUN 16 (6-23) mg/dl Creatinine 0.90 (0.6-1.2) mg/dl Est Cr Clr Drug Dosing 50.2 ml/min Est GFR ( Amer) 75.1 ml/min Est GFR (Non-Af Amer) 64.8 ml/min BUN/Creatinine Ratio 17.8 (10-20) Glucose 118 H (70-99(Fasting)) mg/dl Calcium 9.2 (8.6-10.3) mg/dl Total Bilirubin 0.4 (0.2-1.0) mg/dl AST 15 (13-39) U/L ALT 9 (7-52) U/L Alkaline Phosphatase 51 (34-104) U/L Total Creatine Kinase 109 (26-192) U/L Troponin I High Sens 66.6 H* 129.8 H* D (0-14) pg/ml Total Protein 6.6 (6.0-8.3) gm/dl Albumin 4.1 (3.4-5.0) gm/dl Globulin 2.5 (2.5-4.0) gm/dl Albumin/Globulin Ratio 1.6 (0.9-2) Lipase 13 (11-82) U/L TSH 1.478 (0.300-4.500) uIu/ml Salicylates < 3.0 L (3.0-30) mg/dl Acetaminophen < 3 L (10-30) ug/ml Ethyl Alcohol mg/dL < 10.0 (<10.0) mg/dl Administered Medications Discontinued Medications Sodium Chloride (Nss) 1,000 mls @ 999 mls/hr IV .Q1H1M ONE Stop: 04/20/24 23:02 Last Infusion: 04/20/24 23:43 Dose: Infused Documented By: Admin: 04/20/24 22:12 Dose: 999 mls/hr Documented By: LANA Discharge Plan Visit Data Chief Complaint: Overdose (Intentional) Stated Complaint: OVERDOSE ED Provider: Jan Alvarez Discharge Problem: Overdose Forms Stand Alone Forms: [facility], Suicide Prevention Resources Prescriptions Prescriptions: No Action omeprazole 40 mg capsule,delayed release(DR/EC) 40 mg PO DAILYBB trazodone 100 mg tablet 200 mg PO HS clonazepam [Klonopin] 0.5 mg Tablet 1 mg PO BID Rx Instructions: TAKES NOON & 1800 hydrocodone-acetaminophen 5-325 mg tablet 1 tab PO Q6H PRN (Reason: Pain) alendronate 70 mg tablet 70 mg PO WK Rx Instructions: SATURDAYS propranolol 10 mg tablet 10 mg PO BID Rx Instructions: TAKES QAM & 1500 calcium polycarbophil [FiberCon] 625 mg Tablet 625 mg PO DAILY polyethylene glycol 3350 [Miralax] 17 gram/dose Powder 119 g PO DAILY PRN (Reason: Constipation) Rx Instructions: PER [facility] estradiol 0.01 % (0.1 mg/gram) cream 0.5 g VAGINAL BID Rx Instructions: AT BEDTIME aripiprazole 15 mg tablet 15 mg PO HS topiramate 50 mg tablet 50 mg PO QPM duloxetine 20 mg capsule,delayed release(DR/EC) 20 mg PO QPM Rx Instructions: TOTAL DOSE 50 MG--TAKES WITH 30 MG CAP QPM. duloxetine 30 mg capsule,delayed release(DR/EC) 30 mg PO BID levocetirizine [Xyzal] 5 mg Tablet 5 mg PO PM cranberry extract-vitamin C [Azo Cranberry Plus Vit C] 250-60 mg Capsule 1 cap PO DAILY PRN (Reason: NEEDED) mirabegron [Myrbetriq] 50 mg tablet extended release 24 hr 50 mg PO QAM Referrals Referrals: Edu Torre MD [Primary Care Provider] - Discharge Problem: Overdose Qualifiers: Encounter type: initial encounter Injury intent: intentional self-harm Q ualified Code(s): T50.902A - Poisoning by unspecified drugs, medicaments and biological substances, intentional self-harm, initial encounter
[2024-04-20 22:11] LABS: Basophils # (auto) 0.05 K/uL (0.00-0.20); Basophils % (auto) 0.6 %; Hemoglobin 12.9 g/dl (12.0-16.0); Immature Granulocytes # (auto) 0.02 K/uL (0.01-0.20); Immature Granulocytes % (auto) 0.3 %; Lymphocytes # (auto) 1.89 K/uL (1.20-3.40); Lymphocytes % (auto) 24.3 %; Mean Corpuscular Hgb Conc 33.9 g/dL (32.0-36.0); Mean Corpuscular Volume 91.3 fL (80.0-100.0); Mean Platelet Volume 9.7 fL (9.4-12.4); Monocytes # (auto) 0.42 K/uL (0.11-0.59); Monocytes % (auto) 5.4 %; Neutrophils # (auto) 5.39 K/uL (1.40-6.50); Neutrophils % (auto) 69.4 %; Platelet Count 175 K/uL (130-400); RDW Coefficient of Variation 12.4 % (11.5-14.5); RDW Standard Deviation 41.5 fL (36.4-46.3); Red Blood Count 4.16 M/uL (4.20-5.40); White Blood Count 7.77 K/ul (4.8-10.8)
[2024-04-20] MEDS: SODIUM CHLORIDE 0.9% 1,000 ML IV ONE (22:12)
[2024-04-20 22:25] LABS: Albumin Level 4.1 gm/dl (3.4-5.0); Bilirubin,Total 0.4 mg/dl (0.2-1.0); Calcium 9.2 mg/dl (8.6-10.3); Potassium 3.8 mmol/L (3.5-5.1)
[2024-04-20 22:31] LABS: Acetaminophen < 3 ug/ml (10-30); Albumin Globulin Ratio 1.6 (0.9-2); BUN Creatinine Ratio 17.8 (10-20); Creatinine Clr Calc Pharmacy 50.2 ml/min; Est GFR (African American) 75.1 ml/min; Est GFR (Non-African American) 64.8 ml/min; Globulin 2.5 gm/dl (2.5-4.0); Salicylate < 3.0 mg/dl (3.0-30); Total Protein 6.6 gm/dl (6.0-8.3)
[2024-04-20 22:38] LABS: Troponin I High Sensitivity 66.6 pg/ml (0-14)
[2024-04-20 22:46] LABS: Thyroid Stimulating Hormone 1.478 uIu/ml (0.300-4.500)
--- NOTE | 2024-04-21 01:13 | History & Physical Report ---
Date of Service April 21, 2024 Assessment & Plan (1) Intentional overdose of beta-adrenergic blocking drug: Plan: Secondary to suicidality History anxiety/mood disorder Patient VS currently stable Neck pain possible strain without recollection of trauma hx migraine, patient denies headache symptoms tardive dyskinesia cognitive impairment as per records hyperglycemia ro DM OBS PCU given potential for cardiovascular instability requiring atropine administra tion Atropine as needed symptomatic bradycardia Hold home beta-margo for now Follow toxicology recommendations Suicide precautions Psych consult re: suicidality CT cervical spine Check hemoglobin A1c DVT prophylaxis. SCDs Full code Patient daughter requesting updates providers. Ms. Danni Zhong, contact #[phone]. Text document was generated using [employer] voice recognition software. It may contain grammatical or spelling errors. Kindly contact undersigned for clarification of any documentation item in question. History of Present Illness Chief Complaint: Took my pills as per patient Primary Care Provider: Edu Torre MD History obtained from patient and records. Limited history from patient secondary to cognitive impairment. Medical history significant for hyperlipidemia, anxiety/mood disorder, migraine, tardive dyskinesia, cognitive impairment as per records. Last confinement December 2022 under orthopedic service for elective left shoulder surgery. No postop complications. Patient took unquantified amount of propranolol tablets in the bottle after having an argument with her daughter. Medication being prescribed for patient's anxiety/restlessness by her [facility] psychiatrist. Patient was feeling upset. Denies headache, chest pain, SOB. Achy neck pain with arm and leg weakness without recollection of recent trauma. Patient brought to ER for evaluation. Medical History as above Surgical History : Knee surgery, shoulder surgery, ARA, appendectomy Family History : Cirrhosis, alcoholism, heart disease, lung cancer, mood disorder, uterine cancer Personal/Social history : Non-smoker, no EtOH intake, disabled Allergies Allergy/AdvReac Type Severity Reaction Status Date / Time morphine AdvReac Intermediate room Verified 04/20/24 22:14 spins,violent vomiting prochlorperazine AdvReac Intermediate GENERALIZED Verified 04/20/24 22:14 [From Compazine] WEAKNESS Home Medications Medication Instructions Recorded Confirmed Type omeprazole 40 mg capsule,delayed 40 mg PO DAILYBB 10/19/22 04/20/24 History release trazodone 100 mg tablet 200 mg PO HS 10/19/22 04/20/24 History clonazepam 0.5 mg tablet (Klonopin) 1 mg PO BID Anxiety 11/22/22 04/20/24 History alendronate 70 mg tablet 70 mg PO WK 04/20/24 04/20/24 History aripiprazole 15 mg tablet 15 mg PO HS 04/20/24 04/20/24 History calcium polycarbophil 625 mg 625 mg PO DAILY 04/20/24 04/20/24 History tablet (FiberCon) cranberry extract-vitamin C 250 1 cap PO DAILY PRN NEEDED 04/20/24 04/20/24 History mg-60 mg capsule (Azo Cranberry Plus Vit C) duloxetine 20 mg capsule,delayed 20 mg PO QPM 04/20/24 04/20/24 History release duloxetine 30 mg capsule,delayed 30 mg PO BID 04/20/24 04/20/24 History release estradiol 0.01% (0.1 mg/gram) 0.5 g vaginal BID 04/20/24 04/20/24 History vaginal cream hydrocodone 5 mg-acetaminophen 325 1 tab PO Q6H PRN Pain 04/20/24 04/20/24 History mg tablet levocetirizine 5 mg tablet (Xyzal) 5 mg PO PM 04/20/24 04/20/24 History mirabegron 50 mg tablet,extended 50 mg PO QAM 04/20/24 04/20/24 History release 24 hr (Myrbetriq) polyethylene glycol 3350 17 119 g PO DAILY PRN Constipation 04/20/24 04/20/24 History gram/dose oral powder (Miralax) propranolol 10 mg tablet 10 mg PO BID 04/20/24 04/20/24 History topiramate 50 mg tablet 50 mg PO QPM 04/20/24 04/20/24 History Past Med/Surg History Problem List (Updated 04/21/24 @ 05:48 by Cam Fisher MD) Intentional overdose of beta-adrenergic blocking drug Overdose (Acute) Right leg injury (Acute) Status post reverse total replacement of left shoulder (~11/2022) COVID-19 (Acute) Major depressive disorder, recurrent, severe without psychotic features EVANS (generalized anxiety disorder) Encounter for pre-operative examination Chronic cholecystitis with calculus Proximal humerus fracture Medical History Anxiety Anxiety and depression Arthritis Bipolar disorder Cardiac murmur NO CARDS No murmur noted in ER on 10/20/22 or during GI office visit 10/14/22 Concussion fall down stairs 11/26/22, ct head negative Dementia Depression with suicidal ideation History of COVID-19 08/25/22 per records at [facility] >symptoms resolved Hyperlipidemia Migraine Rib fractures 4-8th ribs 11/26/22, no pneumothorax per records Seizure "CAN'T REMEMBER LAST SEIZURE, BEEN A LONG TIME">DOES NOT FOLLOW WITH NEUROLOGIST Stress incontinence Surgical History Family history of reaction to anesthesia MOTHER>NAUSEA H/O knee surgery RT History of hysterectomy History of tonsillectomy Hx laparoscopic cholecystectomy Nausea and vomiting after administration of anesthetic agent Social History Smoking Status: Never smoker Second Hand Exposure: Yes; Do You Dip or Chew Tobacco: No; Hx Alcohol Use: No Hx Substance Use: No Preferred Language: Kyrgyz Communication Ability: [facility] Pricing Consultant Required: No Beliefs That Will Affect Care: None Current Living Situation: Family Current Living Situation Comment: LIVES W/DTR CRYSTAL Other Information That Helps Us Care for You: No Feels Safe at Home: Yes Safety Concerns: Feels Safe At This Time Gender Identity: Female Assistive Devices: Cane Review of Systems Review of Systems: Could not be reliably obtained secondary to cognitive impairment Physical Exam Physical Exam: GENERAL: Slightly uncomfortable, flat affect, no respiratory distress SKIN: Normal color, warm HEENT: [place] palpebral conjunctivae, no ptosis, dry buccal mucosa NECK : Some limitation in motion,, cervical tenderness CHEST : CTA, no tenderness HEART : Bradycardic, no obvious murmurs ABDOMEN: Some distention, nontender EXTREMITIES : No LE swelling/tenderness, no other conspicuous deformities noted NEUROLOGIC : Oriented to place, slowed response to some questions, no facial asymmetry, MMTs BUE/BLE 4/5 Results & Data Results & Data Vital Signs (Past 12 Hours) Vital Signs Temp Pulse Pulse Resp BP BP Pulse Ox 04/20/24 22:51 61 12 95 04/20/24 22:45 60 12 97 04/20/24 22:30 158/72 H 04/20/24 22:24 62 20 04/20/24 22:15 137/61 04/20/24 22:15 137/61 04/20/24 22:15 59 L 13 04/20/24 22:07 61 18 95 04/20/24 22:00 158/74 H 04/20/24 22:00 158/74 H 04/20/24 22:00 61 15 96 04/20/24 21:59 61 04/20/24 21:58 63 14 158/74 H 97 04/20/24 21:58 97 04/20/24 21:58 37.1 C 63 14 158/74 H 96 04/20/24 21:57 62 17 97 O2 Del Method 04/20/24 22:51 04/20/24 22:45 04/20/24 22:30 04/20/24 22:24 04/20/24 22:15 04/20/24 22:15 04/20/24 22:15 04/20/24 22:07 Room Air 04/20/24 22:00 04/20/24 22:00 04/20/24 22:00 04/20/24 21:59 04/20/24 21:58 Room Air 04/20/24 21:58 Room Air 04/20/24 21:58 Room Air 04/20/24 21:57 Laboratory Results Laboratory Results WBC 7.77 K/ul (4.8-10.8) 04/20/24 21:44 RBC 4.16 M/uL (4.20-5.40) L 04/20/24 21:44 Hgb 12.9 g/dl (12.0-16.0) 04/20/24 21:44 Hct 38.0 % (37.0-47.0) 04/20/24 21:44 MCV 91.3 fL (80.0-100.0) 04/20/24 21:44 MCH 31.0 pg (25.0-34.0) 04/20/24 21:44 MCHC 33.9 g/dL (32.0-36.0) 04/20/24 21:44 RDW Std Deviation 41.5 fL (36.4-46.3) 04/20/24 21:44 RDW Coeff of Zonia 12.4 % (11.5-14.5) 04/20/24 21:44 Plt Count 175 K/uL (130-400) 04/20/24 21:44 MPV 9.7 fL (9.4-12.4) 04/20/24 21:44 Immature Gran % (Auto) 0.3 % 04/20/24 21:44 Neut % (Auto) 69.4 % 04/20/24 21:44 Lymph % (Auto) 24.3 % 04/20/24 21:44 [place] % (Auto) 5.4 % 04/20/24 21:44 Eos % (Auto) 0.0 % 04/20/24 21:44 Baso % (Auto) 0.6 % 04/20/24 21:44 Neut # (Auto) 5.39 K/uL (1.40-6.50) 04/20/24 21:44 Lymph # (Auto) 1.89 K/uL (1.20-3.40) 04/20/24 21:44 [place] # (Auto) 0.42 K/uL (0.11-0.59) 04/20/24 21:44 Eos # (Auto) 0.00 K/uL (0.00-0.50) 04/20/24 21:44 Baso # (Auto) 0.05 K/uL (0.00-0.20) 04/20/24 21:44 Immature Gran # (Auto) 0.02 K/uL (0.01-0.20) 04/20/24 21:44 Sodium 139 mmol/L (136-145) 04/20/24 21:44 Potassium 3.8 mmol/L (3.5-5.1) 04/20/24 21:44 Chloride 106 mmol/L (98-107) 04/20/24 21:44 Carbon Dioxide 27 mmol/L (21-32) 04/20/24 21:44 Anion Gap 6 (3-11) 04/20/24 21:44 BUN 16 mg/dl (6-23) 04/20/24 21:44 Creatinine 0.90 mg/dl (0.6-1.2) 04/20/24 21:44 Est Cr Clr Drug Dosing 50.2 ml/min 04/20/24 21:44 Est GFR ( Amer) 75.1 ml/min 04/20/24 21:44 Est GFR (Non-Af Amer) 64.8 ml/min 04/20/24 21:44 BUN/Creatinine Ratio 17.8 (10-20) 04/20/24 21:44 Glucose 118 mg/dl (70-99(Fasting)) H 04/20/24 21:44 Calcium 9.2 mg/dl (8.6-10.3) 04/20/24 21:44 Total Bilirubin 0.4 mg/dl (0.2-1.0) 04/20/24 21:44 AST 15 U/L (13-39) 04/20/24 21:44 ALT 9 U/L (7-52) 04/20/24 21:44 Alkaline Phosphatase 51 U/L (34-104) 04/20/24 21:44 Total Creatine Kinase 109 U/L (26-192) 04/20/24 21:44 Troponin I High Sens 129.8 pg/ml (0-14) H* D 04/21/24 00:08 Total Protein 6.6 gm/dl (6.0-8.3) 04/20/24 21:44 Albumin 4.1 gm/dl (3.4-5.0) 04/20/24 21:44 Globulin 2.5 gm/dl (2.5-4.0) 04/20/24 21:44 Albumin/Globulin Ratio 1.6 (0.9-2) 04/20/24 21:44 Lipase 13 U/L (11-82) 04/20/24 21:44 TSH 1.478 uIu/ml (0.300-4.500) 04/20/24 21:44 Salicylates < 3.0 mg/dl (3.0-30) L 04/20/24 21:44 Acetaminophen < 3 ug/ml (10-30) L 04/20/24 21:44 Ethyl Alcohol mg/dL < 10.0 mg/dl (<10.0) 04/20/24 21:44 Diagnostic Findings EKG as per my interpretation :Rate 60, NSR, LAD, LAFB, no ischemia
[2024-04-21] MEDS ORDERED: PROMETHAZINE HCL 6.25 MG in SODIUM CHLORIDE 0.9% 50 ML IV PRN (01:16)
[2024-04-21] MEDS ORDERED: ACETAMINOPHEN 325 MG TAB PO PRN (01:16)
[2024-04-21] MEDS ORDERED: ATROPINE SULFATE 0.1 MG/ML 10ML SYR IV PRN (01:16)
--- OUTSIDE RECORDS SUMMARY | 2024-04-21 01:29 | External Medical Summary | Summary of Care ---
Author Name Unknown Organization [facility] Address [address] [place] [address] Phone [phone] Care Team Providers Care [employer] Name Role Phone Andrés Nguyen MD Primary Care Provider [phone] Reason for Visit * Reason Comments Medication Refill Encounter Details Date Type Department Care Team (Late st Contact Info) Description 04/18/2024 Refill [facility] [address] [place] [address] Andrés Nguyen MD [address] [place] [address] Lumbar radiculopathy Allergies Active Allergy Reactions Criticality Noted Date Comments Prochlorperazine Other (Please comment) Medium 07/30/2022 Generalized weakness Morphine And Codeine Nausea/vomiting,Oth er (Please comment) Medium 07/30/2022 Room spinning as well documented as of this encounter (statuses as of 04/19/2024) Medications Medication Sig Dispensed Refills Start Date End Date Status Atorvastatin Calcium 40 MG Oral Tablet (Lipitor) Take 1 Tablet by mouth in the morning. Active Fiber 625 MG Oral Tablet Take 1 Tablet by mouth daily. Active polyethylene glycol 3350 119 gram OR POWD Take 119 g by mouth as needed for Constipation. Active AZO Cranberry 250-30 MG Oral Tablet Take 1 Tablet by mouth daily. Active Topiramate 50 MG Oral Tablet (topAMAX) Take 1 Tablet by mouth in the morning. 90 Tablet 3 3 Active Additional Information Patient taking differently:50 mg OralHS, Reported on 03/10/2024 Myrbetriq 50 MG Oral Tablet Extended Release 24 Hour (Mirabegron ER) Take 1 Tablet by mouth in the morning. 30 Tablet 11 3 Active Estradiol 0.1 MG/GM Vaginal Cream (Estrace) Apply pea sized amount (0.5 gm) vaginally twice a week at bedtime. 42.5 g 3 3 Active Levocetirizine Dihydrochloride 5 MG Oral TabletIndications:CO VID-19 TAKE ONE TABLET BY MOUTH EVERY EVENING 100 Tablet 2 3 09/01/20 24 Active Nitrofurantoin Monohyd Macro 100 MG Oral Capsule (Macrobid) Take 1 Capsule by mouth in the morning and 1 Capsule before bedtime. With food.. 90 Capsule 1 3 Active Additional Information Patient not taking.Reported on 04/19/2024 Benzonatate 100 MG Oral CapsuleIndications:V iral URI Take 2 Capsules by mouth 3 times a day as needed for Cough. 30 Capsule 1 3 Active Additional Information Patient not taking.Reported on 04/19/2024 Ondansetron 4 MG Oral Tablet Disintegrating (Zofran)Indications: Nausea Place 1 Tablet on tongue every 8 hours as needed for Nausea. dissolve on tongue. 20 Tablet 3 Active Additional Information Patient not taking.Reported on 04/19/2024 Omeprazole 40 MG Oral Capsule Delayed Release (PriLOSEC)Indication s:Gastroesophageal reflux disease, unspecified whether esophagitis present TAKE ONE CAPSULE BY MOUTH EVERY MORNING ONE HOUR BEFORE THE FIRST MEAL OF THE DAY. 100 Capsule 3 4 01/03/20 25 Active DULoxetine HCl 30 MG Oral Capsule Delayed Release Particles (Cymbalta)Indication s:EVANS (generalized anxiety disorder),Panic disorder Take 1 Capsule by mouth in the morning and 1 Capsule before bedtime. 180 Capsule 4 Active clonazePAM 0.5 MG Oral Tablet (KlonoPIN)Indication s:Bipolar I disorder, most recent episode depressed (HCC) Take 1 Tablet by mouth in the morning and 1 Tablet in the evening. 60 Tablet 4 Active DULoxetine HCl 20 MG Oral Capsule Delayed Release Particles (Cymbalta)Indication s:Bipolar I disorder, most recent episode depressed (HCC),EVANS (generalized anxiety disorder) Take 1 Capsule by mouth every night at bedtime. With 30 mg capsule 90 Capsule 4 Active traZODone HCl 100 MG Oral Tablet (Desyrel)Indications :EVANS (generalized anxiety disorder),Panic disorder Take 2 Tablets by mouth at bedtime. 180 Tablet 1 4 Active ARIPiprazole 15 MG Oral Tablet (Abilify)Indications :Bipolar I disorder, most recent episode depressed (HCC) Take 1 Tablet by mouth every night at bedtime. 90 Tablet 4 Active Propranolol HCl 10 MG Oral Tablet (Inderal)Indications :EVANS (generalized anxiety disorder),Panic disorder Take one tablet by mouth in the morning and one tablet in the afternoon 180 Tablet 4 Active Alendronate Sodium 70 MG Oral Tablet (Fosamax)Indications :Age-related osteoporosis with current pathological fracture, initial encounter Take one Tablet by mouth once a week. with 8 oz. water 30 minutes before first meal of the day. Remain upright for 30 min after taking tablet. 12 Tablet 1 4 Active Additional Information Patient taking differently:70 mg Oral QWEEK,SATURDAYS, Reported on 04/19/2024 HYDROcodone-Acetamin ophen 5-325 MG Oral TabletIndications:Dorinda mbar radiculopathy Take 1 Tablet by mouth every 6 hours as needed for severe pain 120 Tablet 4 Active HYDROcodone-Acetamin ophen 5-325 MG Oral TabletIndications:Dorinda mbar radiculopathy Take 1 Tablet by mouth every 6 hours as needed for severe pain 120 Tablet 4 04/18/20 24 Discontinu ed(Refill) documented as of this encounter (statuses as of 04/19/2024) Active Problems Problem Noted Date Diagnosed Date EVANS (generalized anxiety disorder) 09/12/2023 Panic disorder 09/12/2023 Recurrent UTI 09/05/2023 Calculus of kidney 09/05/2023 Urge incontinence 09/05/2023 Age-related osteoporosis wit hout current pathological fracture 04/22/2023 Bipolar I disorder, most recent episode depresse d 11/01/2022 Chronic, continuous use of opioids 08/30/2022 Lumbar radiculopathy 08/30/2022 Memory loss 07/30/2022 Chronic bilateral low back pain with left-sided sciatica 07/30/2022 Migraine without aura and wi thout status migrainosus, not intractable 07/30/2022 Primary insomnia 07/30/2022 Gastroesophageal reflux disease 07/30/2022 Tardive dyskinesia 07/30/2022 Mixed hyperlipidemia 07/30/2022 documented as of this encounter (statuses as of 04/19/2024) Resolved Problems Problem Noted Date Diagnosed Date Resolved Date Bipolar disorder 07/30/2022 11/15/2022 Overview: More recent.specified code listed on PL documented as of this encounter (statuses as of 04/19/2024) Immunizations Name Administration Dates Next Due Pneumococcal Conjugate Vaccine, 20-valent (Prevn ar20) 04/22/2023 documented as of this encounter Social History Tobacco Use Types Packs/Day Years Used Date Smoking Tobacco: Never Passive Smoke Exposure: Past Smokeless Tobacco: Never Alcohol Use Standard Drinks/Week Comments Not Currently 0 (1 standard drink = 0.6 oz pur e alcohol) last in 1998 PHQ-2 Answer Date Recorded PHQ Adult Total Score 11 03/01/2024 Hunger Vital Sign Answer Date Recorded Within the past 12 months, y ou worried that your food would run out before you got the money to buy more. Never true 10/01/19 24 Within the past 12 months, t he food you bought just didn't last and you didn't have money to get more. Never true 10/01/2023 Childcare Answer Date Recorded Do you feel overwhelmed with taking care of a child, family member or friend? No 10/01/2023 Does your family need help f inding childcare? (Household - for ages 0-17 years) Not on file 10/01/2023 Clothing Answer Date Recorded Have you been unable to get clothing when it was really needed? No 10/01/2023 Is your family able to get c lothes or diapers when needed? (Household - for ages 0-17 years) Not on file 10/01/2023 Personal Safety Answer Date Recorded Do you feel unsafe or have concerns for your saf ety? No 10/01/2023 Do you have concerns for you r family's safety? (Household - for ages 0-17 years) Not on file 10/01/2023 Utilities Answer Date Recorded Do you have trouble paying y our heating, water, or electric bill? No 10/01/2023 Is your family able to pay t he heat, water, or electric bill? (Household - for ages 0-17 years) Not on file 10/01/2023 Does your family have access to good internet? (Household - for ages 0-17 years) Not on file 10/01/2023 Employment Status Answer Date Recorded Are you unemployed or without regular income? Ye s 10/01/2023 Does the household have a re gular source of income? (Household - for ages 0-17 years) Not on file 10/01/2023 Social Connections Answer Date Recorded How often do you feel lonely or isolated from those around you? Sometimes 10/01/2023 Financial Resource Strain Answer Date R ecorded Do you have any trouble payi ng for your medications, or do you think you might in the future? No 10/01/2023 Does your family have troubl e paying for medicine? (Household - for ages 0-17 years) Not on file 10/01/2023 Transportation Needs Answer Date Record ed READ ONLY Do you have troubl e getting a ride to medical visits or work? Never True 10/01/2023 Does your family have a hard time getting a ride to doctors visits? (Household - for ages 0-17 years) Not on file 10/01/2023 Has lack of transportation k ept you from medical appointments, meetings, work, or from getting things needed for daily living? Check all that apply. (Adult - for ages 18 years and over) Not on file 10/01/2023 Do you (or your family) have trouble finding or paying for a ride (transportation)? (Household - for ages 0-17 years) Not on file 10/01/2023 Housing Stability Answer Date Recorded Do you currently live in a s helter or have no steady place to sleep at night? No 10/01/2023 READ ONLY Do you think you a re at risk of becoming homeless? No 10/01/2023 Does your family worry about paying for your home or becoming homeless? (Household - for ages 0-17 years) Not on file 0 10/01/2023 Are you homeless or worried that you might be in the future? (Adult - for ages 18 years and over) Not on file Are you (or your family) atul eless or worried that you might be in the future? (Household - for ages 0-17 years) Not on file Food Insecurity Answer Date Recorded Do you need food for this week? No 10/01/2023 Are you able to get enough f ood for your family? (Household - for ages 0-17 years) Not on file 10/01/2023 Does your family need food t his week? (Household - for ages 0-17 years) Not on file 10/01/2023 Do you always have enough fo od for your family? (Household - for ages 0-17 years) Not on file 10/01/2023 Sex and Gender Information Value Date Recorded Sex Assigned at Female 06/23/2023 11:02 AM EDT Gender Identity Transgender Female 06/23/2023 11 :02 AM EDT Sexual Orientation Straight 06/23/2023 11 :02 AM EDT Job Start Date Occupation Industry Not on file Not on file Not on file documented as of this encounter Miscellaneous Notes * Telephone Encounter - Andrés Nguyen MD - 04/19/2024 7:22 PM EDTSigned Prescriptions: Disp Refills HYDROcodone-Acetaminophen 5-325 MG Oral Ta*120 Ta*0 Sig: Take 1 Tablet by mouth every 6 hours as needed for severe pain Authorizing Provider: ANDRÉS NGUYEN * Telephone Encounter - Shola Singh [facility] - 04/19/2024 11:56 AM EDT Pending Prescriptions: Disp Refills HYDROcodone-Acetaminophen 5-325 MG Oral Ta*120 Ta*0 Sig: Take 1 Tablet by mouth every 6 hours as needed for severe pain * Telephone Encounter - Shola Singh RP - 04/19/2024 11:55 AM EDT I have reviewed the patients controlled substance dispensing history in the Prescription Drug Monitoring Program in compliance with the [facility] regulations before prescribing a controlled substance. PDMP checked on 04/19/2024. Pending Prescriptions: Disp Refills HYDROcodone-Acetaminophen 5-325 MG Oral T*120 Ta*0 Sig: Take 1 Tablet by mouth every 6 hours as needed for severe pain Last Visit: 01/14/2024 (in office), 08/27/2022 (telemedicine) Next Visit: 06/23/2024 Date medication was last filled: 03/19/24 Date medication is due for refill: 04/16/24 Pharmacy: [facility] Is this request for a controlled substance? Yes and Urine Drug Screen Not completed Please approve if appropriate. Thanks, Shola Singh, PharmD Clinical Pharmacist [facility] ([facility]) [phone] 04/19/2024, 11:55 AM documented in this encounter Plan of Treatment Upcoming Encounters Date Type Department Care Team (Latest Contact Info) Description 04/28/2024 11:30 AM EDT Hospital Encounter [facility]O [facility], Endoscopy Room [facility] [address] [place] [phone] Tate Dye MD [address] [place] [address] 04/28/2024 11:30 AM EDT - 04/28/2024 12:15 PM EDT Surgery ENDO [facility], Endoscopy Room [facility] [address] [facility] [address] [place] [phone] Tate Dye MD [address] [place] [id number] COLONOSCOPY FLEXIBLE PROXIMAL DIAGNOSTIC 05/03/2024 2:30 PM EDT Office Visit Psychiatry, [facility] [address] [place] [address] Yahaira Adams CRNP [address] [place] [address] 05/07/2024 2:00 PM EDT Office Visit Audiology [facility] [address] [facility] [place] [id number] Zonia Marvin Au.D. [address] [facility] [place] [address] 05/08/2024 2:15 PM EDT Imaging Radiology [address] [facility] [place] [address] 06/23/2024 2:00 PM EDT Office Visit [facility] [address] [place] [phone] JanuaryAndrés MD [address] [place] [address] 07/21/2024 3:00 PM EDT Office Visit Urology, [facility] [address] [facility] [place] [address] Arturo Ewing MD [address] [place] [address] Scheduled Procedures Name Priority Associated Diagnoses Date/Ti me COLONOSCOPY FLEXIBLE PROXIMA L DIAGNOSTIC Adenomatous polyp of colon, unspecified part of colon Gastroesophageal reflux disease with esophagitis without hemorrhage 04/28/2024 11:30 AM EDT ESOPHAGOGASTRODUODENOSCOPY ( EGD), FLEXIBLE, TRANSORAL, DIAGNOSTIC Adenomatous polyp of colon, unspecified part of colon Gastroesophageal reflux disease with esophagitis without hemorrhage 04/28/2024 11:30 AM EDT Health Maintenance Due Date Last Done Comments Cologuard 1998 Colonoscopy 1998 Sigmoidoscopy 1998 COVID-19 Vaccine (3 - 2022-2 4 season) 2023 11/20/2020, 10/23/2020 Colorectal Cancer Screening 08/29/2023 Fecal Occult Blood Test 08/29/2023 08/29/20, 08/29/2022 Mammogram 02/15/2024 02/14/2023, 02/14/2023 Influenza Vaccine (FLU shot) (#1) 2024 DXA Scan 01/27/2025 01/27/2023 Depression Monitoring 03/01/2025 03/01/2024 Lipid Panel 08/13/2027 08/13/2022 VITAMIN D LEVEL ONCE IN A LIFETIME-USE SMARTSET# [id number] Completed 01/27/2023, 08/13/2022 Pneumococcal Vaccine: 65+ Years Completed 04/22/2023 DTaP,Tdap,and Td Vaccines Discontinued HPV (Gardasil) Vaccine Aged Out No lo nger eligible based on patient's age to complete this topic Hepatitis B Vaccine Aged Out No longe r eligible based on patient's age to complete this topic Hepatitis C Screening Discontinued MENINGOCOCCAL (MENACTRA/MENVEO) Aged Out No longer eligible based on patient's age to complete this topic Zoster Vaccines Discontinued documented as of this encounter Medical Devices Not on filedocumented as of this encounter Visit Diagnoses Diagnosis Lumbar radiculopathy Thoracic or lumbosacral neuritis or radiculitis, unspecified Adenomatous polyp of colon, unspecified part of colon Gastroesophageal reflux disease with esophagitis without hemorrhage documented in this encounter Care Teams [employer] Relationship Specialty Start Date End Date January, Andrés Camacho MD [address] [place] [address] PCP - General Family Medicine 07/30/22 documented as of this encounter
--- OUTSIDE RECORDS SUMMARY | 2024-04-21 01:29 | External Medical Summary | Summary of Care ---
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 Name Role Phone Andrés Nguyen MD Primary Care Provider Reason for Referral * Ancillary Services (Within 10 days (routine)) - Authorized Specialty Diagnoses / Procedures Referred By Cullen mendoza Referred To Contact Gastroenterology Diagnoses Gastroesophageal reflux disease with esophagitis without hemorrhage Andrés Nguyen MD [address] [place] [address] Referral ID Status Reason Start Date Expiration Date Visits Requested Visits Authorized [id number] Authorized Ancillary Services Required 04/10/[phone] Question Answer Referral Priority Within 10 days (routine) Where should this appointment be scheduled? Alex Comments Upper Endoscopy ASGE Guidelines Upper abdominal symptoms that persist despite an appropriate trial of therapy ADDITIONAL INFORMATION 1. Is the patient on Coumadin? No 2. Is the patient on Pradaxa? No * Ancillary Services (Within 10 days (routine)) - Authorized Specialty Diagnoses / Procedures Referred By Contgabriel t Referred To Contact Gastroenterology Diagnoses Adenomatous polyp of colon, unspecified part of colon Andrés Nguyen MD [address] [place] [address] Referral ID Status Reason Start Date Expiration Date Visits Requested Visits Authorized [id number] Authorized Ancillary Services Required 04/10/[phone] Question Answer Referral Priority Within 10 days (routine) Where should this appointment be scheduled? Alex Comments ALERT: Do not order for pediatric patients (18 years or younger). Cancel off screen and order PEDS GASTROENTEROLOGY CONSULT (Type: 1 visit only-Evaluate and Treat) The following Pt. Instructions are available: - Gastro Colonoscopy Prep Instructions [[id number]] - Gastro Colonoscopy Prep Instructions (Vietnamese Version) [[id number]] Go to the Pt. Instructions section within the Visit Navigator to access. Colonoscopy ASGE Guidelines: Average risk screening (begin at age 50, 10 year intervals) ADDITIONAL INFORMATION 1. Is the patient on Coumadin? No 2. Is the patient on Pradaxa? No Reason for Visit * Reason Onset Date Comments Order Request 04/05/2024 Encounter Details Date Type Department Care Team (Late st Contact Info) Description 04/05/2024 Telephone Gastroenterology, [facility] [address] [place] [address] Tate Dye MD [address] [place] [address] Order Request Allergies Active Allergy Reactions Criticality Noted Date Comments Prochlorperazine Other (Please comment) Medium 07/30/2022 Generalized weakness Morphine And Codeine Nausea/vomiting,Oth er (Please comment) Medium 07/30/2022 Room spinning as well documented as of this encounter (statuses as of 04/10/2024) Medications Medication Sig Dispensed Refills Start Date [...] mouth in the morning. 90 Tablet 3 07/25/2023 Active Additional Information Patient taking differently:50 mg OralHS, Reported on 03/10/2024 Myrbetriq 50 MG Oral Tablet Extended Release 24 Hour (Mirabegron ER) Take 1 Tablet by mouth in the morning. 30 Tablet 11 08/01/2023 Active Estradiol 0.1 MG/GM Vaginal Cream (Estrace) Apply pea sized amount (0.5 gm) vaginally twice a week at bedtime. 42.5 g 3 08/01/2023 Active Levocetirizine Dihydrochloride 5 MG Oral TabletIndications:COV ID-19 TAKE ONE TABLET BY MOUTH EVERY EVENING 100 Tablet 2 09/02/2023 Active Nitrofurantoin Monohyd Macro 100 MG Oral Capsule (Macrobid) Take 1 Capsule by mouth in the morning and 1 Capsule before bedtime. With food.. 90 Capsule 1 09/05/2023 Active Benzonatate 100 MG Oral CapsuleIndications:Vi ral URI Take 2 Capsules by mouth 3 times a day as needed for Cough. 30 Capsule 1 09/12/2023 Active Ondansetron 4 MG Oral Tablet Disintegrating (Zofran)Indications:N ausea Place 1 Tablet on tongue every 8 hours as needed for Nausea. dissolve on tongue. 20 Tablet 09/12/2023 Active Omeprazole 40 MG Oral Capsule Delayed Release (PriLOSEC)Indications :Gastroesophageal reflux disease, unspecified whether esophagitis present TAKE ONE CAPSULE BY MOUTH EVERY MORNING ONE HOUR BEFORE THE FIRST MEAL OF THE DAY. 100 Capsule 3 01/03/2024 5 Active DULoxetine HCl 30 MG Oral Capsule Delayed Release Particles (Cymbalta)Indications :EVANS (generalized anxiety disorder),Panic disorder Take 1 Capsule by mouth in the morning and 1 Capsule before bedtime. 180 Capsule 01/02/2024 Active clonazePAM 0.5 MG Oral Tablet (KlonoPIN)Indications :Bipolar I disorder, most recent episode depressed (HCC) Take 1 Tablet by mouth in the morning and 1 Tablet in the evening. 60 Tablet 02/13/2024 Active DULoxetine HCl 20 MG Oral Capsule Delayed Release Particles (Cymbalta)Indications :Bipolar I disorder, most recent episode depressed (HCC),EVANS (generalized anxiety disorder) Take 1 Capsule by mouth every night at bedtime. With 30 mg capsule 90 Capsule 02/13/2024 Active traZODone HCl 100 MG Oral Tablet (Desyrel)Indications: EVANS (generalized anxiety disorder),Panic disorder Take 2 Tablets by mouth at bedtime. 180 Tablet 1 02/13/2024 Active ARIPiprazole 15 MG Oral Tablet (Abilify)Indications: Bipolar I disorder, most recent episode depressed (HCC) Take 1 Tablet by mouth every night at bedtime. 90 Tablet 02/27/2024 Active Propranolol HCl 10 MG Oral Tablet (Inderal)Indications: EVANS (generalized anxiety disorder),Panic disorder Take one tablet by mouth in the morning and one tablet in the afternoon 180 Tablet 02/27/2024 Active Alendronate Sodium 70 MG Oral Tablet (Fosamax)Indications: Age-related osteoporosis with current pathological fracture, initial encounter Take one Tablet by mouth once a week. with 8 oz. water 30 minutes before first meal of the day. Remain upright for 30 min after taking tablet. 12 Tablet 1 03/05/2024 Active HYDROcodone-Acetamino phen 5-325 MG Oral TabletIndications:Lum bar radiculopathy Take 1 Tablet by mouth every 6 hours as needed for severe pain 120 Tablet 03/19/2024 Active documented as of this encounter (statuses as of 04/10/2024) Active Problems Problem Noted Date Diagnosed Date [...] as of this encounter (statuses as of 04/10/2024) Resolved Problems Problem Noted Date Diagnosed Date Resolved Date Bipolar disorder 07/30/2022 11/15/2022 Overview: More recent.specified code listed on PL documented as of this encounter (statuses as of 04/10/2024) Immunizations Name Administration Dates Next Due Pneumococcal [...] as of this encounter Miscellaneous Notes * Addendum Note - Andrés Nguyen MD - 04/10/2024 10:19 PM EDTAddended by: ANDRÉS NGUYEN on: 04/10/2024 10:19 PM Modules accepted: Orders * Telephone Encounter - Andrés Nguyen MD - 04/10/2024 10:19 PM EDT New orders placed. Andrés Nguyen MD * Telephone Encounter - Vaishali Calhoun OSA - 04/05/2024 2:23 PM EDT I do not see any active orders for a Colonoscopy or EGD. Patient scheduled 04/28/[address] new orders. documented in this encounter Plan of Treatment Upcoming Encounters Date Type Department Care Team (Latest Contact Info) Description 04/28/2024 11:30 AM EDT Hospital Encounter ENDO [facility], Endoscopy Room [facility] [address] [place] [phone] Tate Dye MD [address] [place] [address] 04/28/2024 11:30 AM EDT - 04/28/2024 12:15 PM EDT Surgery ENDO [facility], Endoscopy Room [facility] [address] [place] [address] Tate Dye MD [address] [facility] [place] [address] COLONOSCOPY FLEXIBLE PROXIMAL DIAGNOSTIC 05/03/2024 2:30 PM EDT Office Visit Psychiatry, [facility] [address] [facility] [place] [address] Yahaira Adams CRNP [address] [facility] [place] [address] 05/07/2024 2:00 PM EDT Office Visit Audiology [facility] 132 [facility] [place] [address] Zonia Marvin Au.D. 132 [facility] [place] [address] 05/08/2024 2:15 PM EDT Imaging Radiology [address] 132 [facility] [place] [address] 07/21/2024 3:00 PM EDT Office Visit Urology, [facility] [address] [place] [address] Arturo Ewing MD [address] [facility] [place] [address] Scheduled Procedures Name Priority Associated Diagnoses Date/Ti in COLONOSCOPY FLEXIBLE PROXIMA L DIAGNOSTIC Adenomatous polyp of colon, unspecified part of colon Gastroesophageal reflux disease with esophagitis without hemorrhage 04/28/2024 11:30 AM EDT ESOPHAGOGASTRODUODENOSCOPY ( EGD), FLEXIBLE, TRANSORAL, DIAGNOSTIC Adenomatous polyp of colon, unspecified part of colon Gastroesophageal reflux disease with esophagitis without hemorrhage 04/28/2024 11:30 AM EDT Scheduled Referrals Name Type Priority Associated Diagnoses Orde r Schedule COLONOSCOPY, GI REFERRAL OP Referral Within 10 days (routine) Adenomatous polyp of colon, unspecified part of colon Ordered: 04/10/2024 UPPER ENDOSCOPY GI REFERRAL OP Referral Within 10 days (routine) Gastroesophageal reflux disease with esophagitis without hemorrhage Ordered: 04/10/2024 Health Maintenance Due Date Last Done Comments [...] D LEVEL ONCE IN A LIFETIME-USE SMARTSET# [id number] Completed 01/27/2023, 08/13/2022 Pneumococcal Vaccine: 65+ Years [...] as of this encounter Visit Diagnoses Diagnosis Gastroesophageal reflux disease with esophagitis without hemorrhage- Primary Adenomatous polyp of colon, unspecified part of colon Adenomatous polyp of colon, unspecified part of colon Gastroesophageal reflux disease with esophagitis without hemorrhage documented in this encounter Care Teams Vegetable Washing Machine Operator Relationship Specialty Start Date End Date January, Andrés Camacho MD [address] [place] [address] PCP - General Family Medicine 07/30/22 documented as of this encounter
--- OUTSIDE RECORDS SUMMARY | 2024-04-21 01:29 | External Medical Summary | Summary of Care ---
Author Name Unknown Organization [facility] Address [address] [place] [address] Phone [phone] Care Team Providers Care Fish Seiner Name Role Phone Edu Torre MD Primary Care Provider [phone] Reason for Visit * Reason Onset Date Comments Appointment 03/12/2024 Encounter Details Date Type Department Care Team (Late st Contact Info) Description 03/12/2024 Telephone Neurology, [address] [place] [address] Chung Santos MD [address] [place] [phone] Appointment Allergies Active Allergy Reactions Criticality Noted Date Comments Prochlorperazine Other (Please comment) Medium 07/30/2022 Generalized weakness Morphine And Codeine Nausea/vomiting,Oth er (Please comment) Medium 07/30/2022 Room spinning as well documented as of this encounter (statuses as of 03/12/2024) Medications Medication Sig Dispensed Refills Start Date [...] MOUTH EVERY EVENING 100 Tablet 2 09/02/2023 4 Active Nitrofurantoin Monohyd Macro 100 MG Oral [...] at bedtime. 180 Tablet 1 02/13/2024 Active HYDROcodone-Acetamino phen 5-325 MG Oral TabletIndications:Lum bar radiculopathy Take 1 Tablet by mouth every 6 hours as needed for severe pain 120 Tablet 02/17/2024 Active ARIPiprazole 15 MG Oral Tablet (Abilify)Indications: [...] taking tablet. 12 Tablet 1 03/05/2024 Active documented as of this encounter (statuses as of 03/12/2024) Active Problems Problem Noted Date Diagnosed Date [...] as of this encounter (statuses as of 03/12/2024) Resolved Problems Problem Noted Date Diagnosed Date Resolved Date Bipolar disorder 07/30/2022 11/15/2022 Overview: More recent.specified code listed on PL documented as of this encounter (statuses as of 03/12/2024) Immunizations Name Administration Dates Next Due Pneumococcal [...] encounter Miscellaneous Notes * Telephone Encounter - Arely Avelar MED ASSIST - 03/12/2024 9:15 AM EDT MLOM to schedule patient as per Dr. Santos's 03/10/24 dispo orders: Return for Neurology [facility] [employer] [facility] [place] 1st avail ok [facility] or acute to accommodate.. Check-out Comments: RTC Neurology [facility] [employer] [facility] in person with Chung Santos on telecart,first available, may use [facility] or acute slot to accommodate. Please help schedule labs and MRI Brain. If patient calls back: please schedule neurology appointent for [facility]. Please assist in scheduling labs/MRI. documented in this encounter Plan of Treatment Upcoming Encounters Date Type Department Care Team (Latest Contact Info) Description 03/29/2024 12:00 PM EDT Office Visit Psychiatry, [facility] [address] [place] [address] Yahaira Adams CRNP [address] [place] [address] [address] 04/28/2024 11:30 AM EDT Hospital Encounter [facility], Endoscopy Room [facility] [address] [place] [address] Tate Dye MD [address] [place] [address] 04/28/2024 11:30 AM EDT - 04/28/2024 12:15 PM EDT Surgery ENDO [facility], Endoscopy Room [facility] [address] [place] [phone] Tate Dye MD [address] [place] [address] COLONOSCOPY FLEXIBLE PROXIMAL DIAGNOSTIC 05/07/2024 2:00 PM EDT Office Visit Audiology [facility] [address] [place] [address] Zonia Marvin Au.D. [address] [place] [address] 07/21/2024 3:00 PM EDT Office Visit Urology, [facility] [address] [facility] [place] [address] Arturo Ewing MD [address] [place] [address] [place] [address] Scheduled Procedures Name Priority Associated Diagnoses Date/Ti [...] 1998 Colonoscopy 1998 Sigmoidoscopy 1998 COVID-19 Vaccine (2022-2 4 season) 2023 11/20/2020, 10/23/2020 Colorectal Cancer Screening 08/29/2023 Fecal Occult Blood Test 08/29/2023 08/29/20, 08/29/2022 Mammogram 02/15/2024 02/14/2023, 02/14/2023 Influenza Vaccine (FLU shot) (Season Ended) 2024 DXA Scan 01/27/2025 01/27/2023 Depression Monitoring 03/01/2025 03/01/2024 Lipid Panel 08/13/2027 08/13/2022 VITAMIN D LEVEL ONCE IN A LIFETIME-USE SMARTSET# [id number] Completed 01/27/2023, 08/13/2022 Pneumococcal Vaccine: 65+ Years Completed 04/22/2023 DTaP,Tdap,and Td Vaccines Discontinued GARDASIL-HPV IMMUNIZATION SERIES Aged Out No longer eligible based on patient's age to complete this topic Hepatitis B Aged Out No longer eligi ble based on patient's age to complete this topic Hepatitis C Screening Discontinued MENINGOCOCCAL (MENACTRA/MENVEO) Aged Out No longer eligible based on patient's age to complete this topic Zoster Vaccines Discontinued documented as of this encounter Medical Devices Not on filedocumented as of this encounter Care Teams Fish Seiner Relationship Specialty Start Date End Date January, Edu Camacho MD [address] [place] [address] PCP - General Family Medicine 07/30/22 documented as of this encounter
--- OUTSIDE RECORDS SUMMARY | 2024-04-21 01:29 | External Medical Summary | Summary of Care ---
Author Name Unknown Organization [facility] Address [address] [place] [address] Phone [phone] Care Team Providers Care Bilingual Legal Assistant Name Role Phone Edu Torre MD Primary Care Provider [phone] Reason for Visit * Reason Onset Date Comments Order Request 04/05/2024 Encounter Details Date Type Department Care Team (Late st Contact Info) Description 04/05/2024 Telephone Gastroenterology, [facility] [address] [place] [address] Tate Dye MD [address] [place] [address] Order Request Allergies Active Allergy Reactions Criticality Noted Date Comments Prochlorperazine Other (Please comment) Medium 07/30/2022 Generalized weakness Morphine And Codeine Nausea/vomiting,Oth er (Please comment) Medium 07/30/2022 Room spinning as well documented as of this encounter (statuses as of 04/05/2024) Medications Medication Sig Dispensed Refills Start Date [...] as of this encounter (statuses as of 04/05/2024) Active Problems Problem Noted Date Diagnosed Date [...] as of this encounter (statuses as of 04/05/2024) Resolved Problems Problem Noted Date Diagnosed Date Resolved Date Bipolar disorder 07/30/2022 11/15/2022 Overview: More recent.specified code listed on PL documented as of this encounter (statuses as of 04/05/2024) Immunizations Name Administration Dates Next Due Pneumococcal [...] encounter Miscellaneous Notes * Telephone Encounter - Vaishali Calhoun OSA - 04/05/2024 2:23 PM EDT I do not see any active orders for a Colonoscopy or EGD. Patient scheduled 04/28/[address] new orders. documented in this encounter Plan of Treatment Upcoming Encounters Date Type Department Care Team (Latest Contact Info) Description 04/08/2024 3:15 PM EDT Imaging Radiology [address] [place] [address] 04/28/2024 11:30 AM EDT Hospital Encounter ENDO [facility], Endoscopy Room [facility] [address] [place] [phone] Tate Dye MD [address] [place] [address] 04/28/2024 11:30 AM EDT - 04/28/2024 12:15 PM EDT Surgery ENDO [facility], Endoscopy Room [facility] [address] [place] [phone] Tate Dye MD [address] [place] [address] COLONOSCOPY FLEXIBLE PROXIMAL DIAGNOSTIC 05/07/2024 2:00 PM EDT Office [facility] [place] [address] Zonia Marvin Au.D. [address] [place] [address] 07/21/2024 3:00 PM EDT Office Visit Urology, [facility] [address] [facility] [place] [address] Arturo Ewing MD 27 [facility] [place] [id number] Scheduled Procedures Name Priority Associated Diagnoses Date/Ti [...] D LEVEL ONCE IN A LIFETIME-USE SMARTSET# [id number] Completed 01/27/2023, 08/13/2022 Pneumococcal Vaccine: 65+ Years [...] filedocumented as of this encounter Care Teams Bilingual Legal Assistant Relationship Specialty Start Date End Date January, Edu Camacho MD [address] [place] [address] PCP - General Family Medicine 07/30/22 documented as of this encounter
--- OUTSIDE RECORDS SUMMARY | 2024-04-21 01:29 | External Medical Summary | Summary of Care ---
Author Name Unknown Organization [facility] Address [address] [place] [address] Phone [phone] Care Team Providers Care Merchandising Assistant Name Role Phone Edu Torre MD Primary Care Provider [phone] Encounter Details Date Type Department Care Team (Late st Contact Info) Description 01/30/2024 Telephone Family Practice [address] [facility] [address] [facility] [address] Rona Tirado, RN [address] [place] [address] Allergies Active Allergy Reactions Criticality Noted Date Comments Prochlorperazine Other (Please comment) Medium 07/30/2022 Generalized weakness Morphine And Codeine Nausea/vomiting,Oth er (Please comment) Medium 07/30/2022 Room spinning as well documented as of this encounter (statuses as of 04/08/2024) Medications Medication Sig Dispensed Refills Start Date [...] With food.. 90 Capsule 1 3 Active Benzonatate 100 MG Oral CapsuleIndications:V iral URI Take 2 Capsules by mouth 3 times a day as needed for Cough. 30 Capsule 1 3 Active Ondansetron 4 MG Oral Tablet Disintegrating (Zofran)Indications: Nausea Place 1 Tablet on tongue every 8 hours as needed for Nausea. dissolve on tongue. 20 Tablet 3 Active Omeprazole 40 MG Oral Capsule Delayed [...] Capsule before bedtime. 180 Capsule 4 Active Meloxicam 15 MG Oral Tablet Take 1 Tablet by mouth in the morning. 3 03/10/20 24 Discontinu ed(Medicat ion List Clean Up) Alendronate Sodium 70 MG Oral Tablet (Fosamax)Indications :Age-related osteoporosis with current pathological fracture, initial encounter Take 1 Tablet by mouth once a week. with 8 oz. water 30 minutes before first meal of the day. Remain upright for 30 min after taking tablet. 15 Tablet 1 3 03/05/20 24 Discontinu ed(Refill) traZODone HCl 100 MG Oral Tablet (Desyrel)Indications :EVANS (generalized anxiety disorder),Panic disorder Take 2 Tablets by mouth at bedtime. 180 Tablet 1 4 02/13/20 24 Discontinu ed(Refill) DULoxetine HCl 20 MG Oral Capsule Delayed Release Particles (Cymbalta)Indication s:Bipolar I disorder, most recent episode depressed (HCC),EVANS (generalized anxiety disorder) Take 1 Capsule by mouth every night at bedtime. With 30 mg capsule 90 Capsule 4 02/13/20 24 Discontinu ed(Refill) ARIPiprazole 10 MG Oral Tablet (Abilify)Indications :Bipolar I disorder, most recent episode depressed (HCC) Take 1 Tablet by mouth every night at bedtime. 90 Tablet 4 02/13/20 24 Discontinu ed(Refill) ARIPiprazole 2 MG Oral Tablet (Abilify)Indications :Bipolar I disorder, most recent episode depressed (HCC) Take 1 Tablet by mouth every night at bedtime. 90 Tablet 4 02/13/20 24 Discontinu ed(Refill) clonazePAM 0.5 MG Oral Tablet (KlonoPIN)Indication s:Bipolar I disorder, most recent episode depressed (HCC) Take 1 Tablet by mouth in the morning and 1 Tablet in the evening. 60 Tablet 4 02/13/20 24 Discontinu ed(Refill) Propranolol HCl 10 MG Oral Tablet (Inderal)Indications :EVANS (generalized anxiety disorder),Panic disorder Take one tablet by mouth in the morning and one tablet at noon 180 Tablet 4 02/27/20 24 Discontinu ed(Refill) HYDROcodone-Acetamin ophen 5-325 MG Oral TabletIndications:Dorinda mbar radiculopathy Take 1 Tablet by mouth every 6 hours as needed for severe pain 120 Tablet 4 02/15/20 24 Discontinu ed(Refill) documented as of this encounter (statuses as of 04/08/2024) Active Problems Problem Noted Date Diagnosed Date [...] as of this encounter (statuses as of 04/08/2024) Resolved Problems Problem Noted Date Diagnosed Date Resolved Date Bipolar disorder 07/30/2022 11/15/2022 Overview: More recent.specified code listed on PL documented as of this encounter (statuses as of 04/08/2024) Immunizations Name Administration Dates Next Due Pneumococcal Conjugate Vaccine, 20-valent (Prevn ar20) 04/22/2023 documented as of this encounter Social History Tobacco Use Types Packs/Day Years Used Date Smoking Tobacco: Never Passive Smoke Exposure: Past Smokeless Tobacco: Never Alcohol Use Standard Drinks/Week Comments Never 0 (1 standard drink = 0.6 oz pur e alcohol) PHQ-2 Answer Date Recorded PHQ Adult Total [...] encounter Miscellaneous Notes * Telephone Encounter - Karen Julian OSA - 02/02/2024 2:29 PM EDT LMOM Danni to come any wed between 1-4 pm for a tour. Once tour is complete, we can set up an appt. * Telephone Encounter - Rona Tirado RN - 01/30/2024 11:40 AM EDT Daughter is interested in getting patient set up with 63 forward. She is currently a patient at [facility]. Can you please call daughter Yahaira or Danni to arrange a tour and set up? documented in this encounter Plan of Treatment Upcoming Encounters Date Type Department Care Team (Latest Contact Info) Description 04/28/2024 11:30 AM EDT Hospital Encounter [facility], Endoscopy Room [facility] [address] [place] [address] Tate Dye MD [address] [place] [address] 04/28/2024 11:30 AM EDT - 04/28/2024 12:15 PM EDT Surgery ENDO [facility], Endoscopy Room [facility] [address] [place] [phone] Tate Dye MD [address] [place] [address] COLONOSCOPY FLEXIBLE PROXIMAL DIAGNOSTIC 05/03/2024 2:30 PM EDT Office Visit Psychiatry, [facility] [place] [address] Yahaira Adams CRNP 200 [facility] [place] [address] 05/07/2024 2:00 PM EDT Office Visit Audiology [facility] [address] [place] [address] Zonia Marvin Au.D. [address] [place] [address] 05/08/2024 2:15 PM EDT Imaging Radiology [facility] [address] [address] 07/21/2024 3:00 PM EDT Office Visit Urology, [facility] [address] [place] [address] Arturo Ewing MD [address] [place] [address] Scheduled Procedures Name Priority Associated Diagnoses Date/Ti [...] D LEVEL ONCE IN A LIFETIME-USE SMARTSET# [id number] Completed 01/27/2023, 08/13/2022 Pneumococcal Vaccine: 65+ Years [...] filedocumented as of this encounter Care Teams Merchandising Assistant Relationship Specialty Start Date End Date January, Edu Camacho MD [address] [facility] [place] [address] PCP - General Family Medicine 11/8/22 documented as of this encounter
--- OUTSIDE RECORDS SUMMARY | 2024-04-21 01:29 | External Medical Summary | Summary of Care ---
Author Name Unknown Organization [facility] Address [address] [place] [address] Phone [phone] Care Team Providers Care Real Estate Listing Consultant Name Role Phone Andrés Nguyen MD Primary Care Provider [phone] Reason for Visit * Reason Comments Medication Refill Encounter Details Date Type Department Care Team (Late st Contact Info) Description 03/18/2024 Refill [facility] [address] [place] [address] Andrés Nguyen MD [address] [place] [address] Lumbar radiculopathy Allergies Active Allergy Reactions Criticality Noted Date Comments Prochlorperazine Other (Please comment) Medium 07/30/2022 Generalized weakness Morphine And Codeine Nausea/vomiting,Oth er (Please comment) Medium 07/30/2022 Room spinning as well documented as of this encounter (statuses as of 03/19/2024) Medications Medication Sig Dispensed Refills Start Date [...] taking tablet. 12 Tablet 1 4 Active HYDROcodone-Acetamin ophen 5-325 MG Oral TabletIndications:Dorinda mbar radiculopathy Take 1 Tablet by mouth every 6 hours as needed for severe pain 120 Tablet 4 Active HYDROcodone-Acetamin ophen 5-325 MG Oral TabletIndications:Dorinda mbar radiculopathy Take 1 Tablet by mouth every 6 hours as needed for severe pain 120 Tablet 4 03/18/20 24 Discontinu ed(Refill) documented as of this encounter (statuses as of 03/19/2024) Active Problems Problem Noted Date Diagnosed Date [...] as of this encounter (statuses as of 03/19/2024) Resolved Problems Problem Noted Date Diagnosed Date Resolved Date Bipolar disorder 07/30/2022 11/15/2022 Overview: More recent.specified code listed on PL documented as of this encounter (statuses as of 03/19/2024) Immunizations Name Administration Dates Next Due Pneumococcal [...] Telephone Encounter - Andrés Nguyen MD - 03/19/2024 7:31 AM EDTSigned Prescriptions: Disp Refills HYDROcodone-Acetaminophen 5-325 MG Oral Ta*120 Ta*0 Sig: Take 1 Tablet by mouth every 6 hours as needed for severe pain Authorizing Provider: ANDRÉS NGUYEN * Telephone Encounter - [facility] [place] [facility] - 03/19/2024 5:36 AM EDTPending Prescriptions: Disp Refills HYDROcodone-Acetaminophen 5-325 MG Oral Ta*120 Ta*0 Sig: Take 1 Tablet by mouth every 6 hours as needed for severe pain * Telephone Encounter - [facility] [place] [facility] - 03/19/2024 5:35 AM EDT I have reviewed the patients controlled substance dispensing history in the Prescription Drug Monitoring Program in compliance with the [facility] regulations before prescribing a controlled substance. PDMP checked on 03/19/2024. Pending Prescriptions: Disp Refills HYDROcodone-Acetaminophen 5-325 MG Oral T*120 Ta*0 Sig: Take 1 Tablet by mouth every 6 hours as needed for severe pain Last Visit: 01/14/2024 (in office), 08/27/2022 (telemedicine) Next Visit: Visit date not found Date medication was last filled: 02/18/24 Date medication is due for refill: 03/18/24 Pharmacy: [facility] Is this request for a controlled substance? Yes and Urine Drug Screen Not completed Toxicology results: Results for orders placed or performed in visit on 09/06/22 PAIN MANAGEMENT DRUG PANEL, URINE W/ INTERPRETATION Result Value Compliance Interpretation Based on the medication information provided and from [facility]: Please note hydrocodone and hydrocodone metabolite, dihydrocodeine, were detected in the urine but at concentrations below the limit of quantitation. These findings are CONSISTENT with hydrocodone use at low-dose. The presence of alpha-hydroxyalprazolam is CONSISTENT with alprazolam use. Amphetamines Screen, U Negative Benzodiazepines Screen, U Refer to confirmation results (A) Cannabinoids Screen, U Negative Cocaine Metabolite Screen, U Negative Fentanyl Screen, U Negative Hydrocodone Screen, U Refer to confirmation results (A) Methadone Metabolite Screen, U Negative Morphine/Codeine Screen, U Negative Oxycodone Screen, U Negative Valid Interpretation Normal Creatinine, U 89 Narrative Cutoff Concentrations: Drug Level Amphetamines 500 ng/mL Benzodiazepines 100 ng/mL Cannabinoids 50 ng/mL Cocaine Metabolite 150 ng/mL Fentanyl 1 ng/mL Hydrocodone / Hydromorphone 300 ng/mL Methadone Metabolite 100 ng/mL Morphine / Codeine 300 ng/mL Oxycodone / Oxymorphone 100 ng/mL Screening results are presumptive and can only be used for medical purposes. Confirmatory testing is available upon request. Please approve if appropriate. Thank You, [facility] Clinical Pharmacist [facility] ([facility]) [phone] [id number] 03/19/2024, 5:35 AM documented in this encounter Plan of Treatment Upcoming Encounters Date Type Department Care Team (Latest Contact Info) Description 03/19/2024 3:00 PM EDT Laboratory Laboratory, [place] [address] [place] [facility] [place] [address] [place], Laboratory [address] [place] [address] 03/29/2024 12:00 PM EDT Office Visit Psychiatry, [facility] Mortensen [address] [facility] [place] [address] AdamsYahaira CRNP [address] [facility] [place] [address] 04/08/2024 3:15 PM EDT Imaging Radiology [facility] [address] [place], [place] [address] [place] [address] 04/28/2024 11:30 AM EDT Hospital Encounter [facility]O [facility], Endoscopy Room [facility] [address] [place] [phone] Tate Dye MD [address] [place] [address] 04/28/2024 11:30 AM EDT - 04/28/2024 12:15 PM EDT Surgery ENDO [facility], Endoscopy Room [facility] [address] [place] [address] Tate Dye MD [address] [place] [address] COLONOSCOPY FLEXIBLE PROXIMAL DIAGNOSTIC 05/07/2024 2:00 PM EDT Office Visit Audiology [facility] [address] [place] [address] Zonia Marvin Au.D. [address] [place] [address] 07/21/2024 3:00 PM EDT Office Visit Urology, [facility] [address] [place] [address] Arturo Ewing MD [address] [place] [address] Scheduled Procedures Name Priority Associated Diagnoses Date/Ti [...] D LEVEL ONCE IN A LIFETIME-USE SMARTSET# [id number] Completed 01/27/2023, 08/13/2022 Pneumococcal Vaccine: 65+ Years [...] hemorrhage documented in this encounter Care Teams Real Estate Listing Consultant Relationship Specialty Start Date End Date January, Andrés Camacho MD [address] [place] [address] PCP - General Family Medicine 07/30/22 documented as of this encounter
--- OUTSIDE RECORDS SUMMARY | 2024-04-21 01:29 | External Medical Summary | Summary of Care ---
Author Name Unknown Organization [facility] Address [address] [place] [address] Phone [phone] Care Team Providers Care China And Silverware Salesperson Name Role Phone Edu Torre MD Primary Care Provider [phone] Reason for Visit * Reason Onset Date Comments Order Request 04/05/2024 Encounter Details Date Type Department Care Team (Late st Contact Info) Description 04/05/2024 Telephone Gastroenterology, [facility] [address] [place] [address] Tate Dye MD [address] [place] [address] Order Request Allergies Active Allergy Reactions Criticality [...] Description 04/08/2024 3:15 PM EDT Imaging Radiology [address] [place] [address] 04/28/2024 11:30 AM EDT Hospital Encounter [facility]O [facility], Endoscopy Room [facility] [address] [place] [phone] Tate Dye MD [address] [place] [address] 04/28/2024 11:30 AM EDT - 04/28/2024 12:15 PM EDT Surgery ENDO [facility], Endoscopy Room [facility] [address] [place] [phone] Tate Dye MD [address] [place] [address] COLONOSCOPY FLEXIBLE PROXIMAL DIAGNOSTIC 05/07/2024 2:00 PM EDT Office Visit Aud[facility] [place] [address] Zonia Marvin Au.D. [address] [place] [address] 07/21/2024 3:00 PM EDT Office Visit Urology, [facility] [address] [facility] [place] [address] Arturo Ewign MD [address] [facility] [place] [id number] Scheduled Procedures Name Priority Associated Diagnoses Date/Ti [...] D LEVEL ONCE IN A LIFETIME-USE SMARTSET# [id number] Completed 01/27/2023, 08/13/2022 Pneumococcal Vaccine: 65+ Years [...] filedocumented as of this encounter Care Teams [employer] And Silverware Salesperson Relationship Specialty Start Date End Date January, Edu Camacho MD [address] [place] [address] PCP - General Family Medicine 07/30/22 documented as of this encounter
--- OUTSIDE RECORDS SUMMARY | 2024-04-21 01:29 | External Medical Summary | Summary of Care ---
Author Name Unknown Organization [facility] Address [address] [place] [address] Phone [phone] Care Team Providers Care Space Physicist Name Role Phone Edu Torre MD Primary Care Provider [phone] Reason for Visit * Reason Onset Date Comments Health Maintenance 04/19/2024 Encounter Details Date Type Department Care Team (Late st Contact Info) Description 04/19/2024 Telephone [facility] [address] [place] [address] Edu Torre MD [address] [place] [address] Health Maintenance Allergies Active Allergy Reactions Criticality Noted Date [...] money to buy more. Never true 10/01/19 Within the past 12 months, t he [...] encounter Miscellaneous Notes * Telephone Encounter - Alba Knox LPN - 04/19/2024 10:01 AM EDT Care Gaps Comprehensive Care Outreach Last Office/Telemedicine Visit: 01/14/2024 (in office), 08/27/2022 (telemedicine) Next Office Visit: Visit date not found Hemoglobin AIC Results: Lab Results Component Value Date/Time HEMOGLOBIN A1C - [facility] 5.6 08/13/2022 11:56 AM BP Readings from Last 1 Encounters: 01/14/24 118/62 Reviewed Health Maintenance below: Health Maintenance Topic Date Due COVID-19 Vaccine ( season) 2023 Colorectal Cancer Screening 08/29/2023 Mammogram 02/15/2024 Influenza Vaccine (FLU shot) (1) 05/23/2024 DXA Scan 01/27/2025 Depression Monitoring 03/01/2025 Ghp recapture Ov scheduled Colon already scheduled Mamm declined Care Gap Outreach Action Taken: Spoke to patient documented in this encounter Plan of Treatment Upcoming Encounters Date Type Department Care Team (Latest Contact Info) Description 04/28/2024 11:30 AM EDT Hospital Encounter ENDO [facility], Endoscopy Room [facility] [address] [place] [address] Tate Dye MD [address] [place] [address] 04/28/2024 11:30 AM EDT - 04/28/2024 12:15 PM EDT Surgery [facility] [place] [phone] Tate Dye MD [address] [facility] [place] [address] COLONOSCOPY FLEXIBLE PROXIMAL DIAGNOSTIC 05/03/2024 2:30 PM EDT Office Visit Psychiatry, [facility] [address] [place] [address] Yahaira Adams CRNP [address] [place] [address] 05/07/2024 2:00 PM EDT Office Visit Audiology [facility] [address] [facility] [place] [address] Zonia Marvin Au.D. [address] [facility] [place] [address] 05/08/2024 2:15 PM EDT Imaging Radiology [address] [facility] [place] [address] 06/23/2024 2:00 PM EDT Office Visit [facility] [address] [place] [address] Edu Torre MD [address] [place] [address] 07/21/2024 3:00 PM EDT Office Visit Urology, [facility] [address] [facility] [place] [address] Arturo Ewing MD [address] [place] [address] Scheduled Procedures Name Priority Associated Diagnoses Date/Ti [...] Colonoscopy 1998 Sigmoidoscopy 1998 COVID-19 Vaccine (3 2022-2 4 season) 2023 11/20/2020, 10/23/2020 Colorectal Cancer Screening 08/29/2023 Fecal Occult Blood Test 08/29/2023 08/29/20, 08/29/2022 Mammogram 02/15/2024 02/14/2023, 02/14/2023 Influenza Vaccine (FLU shot) (#1) 2024 DXA Scan 01/27/2025 01/27/2023 Depression Monitoring 03/01/2025 03/01/2024 Lipid Panel 08/13/2027 08/13/2022 VITAMIN D LEVEL ONCE IN A LIFETIME-USE SMARTSET# [id number] Completed 01/27/2023, 08/13/2022 Pneumococcal Vaccine: 65+ Years [...] filedocumented as of this encounter Care Teams Space Physicist Relationship Specialty Start Date End Date January, Edu Camacho MD [address] [place] [address] PCP - General Family Medicine 07/30/22 documented as of this encounter
--- OUTSIDE RECORDS SUMMARY | 2024-04-21 01:30 | External Medical Summary | Summary of Care ---
Author Name Unknown Organization [facility] Address [address] [place] [address] Phone [phone] Care Team Providers Care Transition Mgr Rn Name Role Phone Edu Torre MD Primary Care Provider [phone] Reason for Visit * Reason Onset Date Comments Other 03/08/2024 Encounter Details Date Type Department Care Team (Late st Contact Info) Description 03/08/2024 Telephone Care Coordination and Integration [address] [place] [address] Tanya Carpio OSA [address] [place] [address] Other Allergies Active Allergy Reactions Criticality Noted Date Comments Prochlorperazine 07/30/2022 Morphine And Codeine 07/30/2022 documented as of this encounter (statuses as of 03/08/2024) Medications Medication Sig Dispensed Refills Start Date End Date Status Atorvastatin Calcium 40 MG Oral Tablet (Lipitor) Take 1 Tablet by mouth in the morning. Active Fiber 625 MG Oral Tablet Take by mouth. Active polyethylene glycol 3350 119 gram OR POWD Take 119 g by mouth once. Active AZO Cranberry 250-30 MG Oral Tablet Take by mouth. Active Meloxicam 15 MG Oral Tablet Take 1 Tablet by mouth in the morning. 01/20/2023 Active Topiramate 50 MG Oral Tablet (topAMAX) Take 1 Tablet by mouth in the morning. 90 Tablet 3 07/25/2023 Active Myrbetriq 50 MG Oral Tablet Extended Release [...] as of this encounter (statuses as of 03/08/2024) Active Problems Problem Noted Date Diagnosed Date [...] as of this encounter (statuses as of 03/08/2024) Resolved Problems Problem Noted Date Diagnosed Date Resolved Date Bipolar disorder 07/30/2022 11/15/2022 Overview: More recent.specified code listed on PL documented as of this encounter (statuses as of 03/08/2024) Immunizations Name Administration Dates Next Due Pneumococcal [...] money to get more. Never true 10/01/2023 Sex and Gender Information Value Date Recorded Sex Assigned at Female 06/23/2023 11:02 AM EDT Gender Identity Transgender Female 06/23/2023 11 :02 AM EDT Sexual Orientation Straight 06/23/2023 11 :02 AM EDT Job Start Date Occupation Industry Not on file Not on file Not on file documented as of this encounter Miscellaneous Notes * Telephone Encounter - Tanya Carpio OSA - 03/08/2024 2:55 PM EDT Recieved a PC from Christal sanchez/ [facility] scheduling. She was calling for Aleena Easley however as I was getting the member info Christal said the member disconnected. I said I would put a note through to the CM letting her know the member called. documented in this encounter Plan of Treatment Upcoming Encounters Date Type Department Care Team (Late st Contact Info) Description 03/10/2024 3:00 PM EDT Office Visit [facility] [address] [facility] [phone] JanuaryEdu MD [address] [facility] [id number] 03/10/2024 4:20 PM EDT Telemedicine Neurology, [place] [address] [place] [address] Chung Santos MD [address] [place] [address] 03/29/2024 12:00 PM EDT Office Visit Psychiatry, [facility] [address] [place] [address] Yahaira Adams CRNP [address] [place] [address] 04/28/2024 11:15 AM EDT Hospital Encounter [facility]O [facility], Endoscopy Room [facility] [address] [place] [address] Tate Dye MD [address] [place] [address] 04/28/2024 11:15 AM EDT - 04/28/2024 12:15 PM EDT Surgery ENDO [facility], Endoscopy Room [facility] [address] [place] [address] Tate Dye MD [address] [place] [address] COLONOSCOPY FLEXIBLE PROXIMAL DIAGNOSTIC 05/07/2024 2:00 PM EDT Office Visit Audiology [facility] [address] [place] [address] Zonia Marvin Au.D. [address] [place] [address] 07/21/2024 3:00 PM EDT Office Visit Urology, [facility] [address] [place] [address] Arturo Ewing MD [address] [place] [address] [place] [address] Scheduled Procedures Name Priority Associated Diagnoses Date/Ti me COLONOSCOPY FLEXIBLE PROXIMA L DIAGNOSTIC Adenomatous polyp of colon, unspecified part of colon Gastroesophageal reflux disease with esophagitis without hemorrhage 04/28/2024 11:15 AM EDT ESOPHAGOGASTRODUODENOSCOPY ( EGD), FLEXIBLE, TRANSORAL, DIAGNOSTIC Adenomatous polyp of colon, unspecified part of colon Gastroesophageal reflux disease with esophagitis without hemorrhage 04/28/2024 11:15 AM EDT Health Maintenance Due Date Last [...] D LEVEL ONCE IN A LIFETIME-USE SMARTSET# [id number] Completed 01/27/2023, 08/13/2022 Pneumococcal Vaccine: 65+ Years [...] filedocumented as of this encounter Care Teams Transition Mgr Rn Relationship Specialty Start Date End Date January, Edu Camacho MD [address] [facility] [address] PCP - General Family Medicine 07/30/22 documented as of this encounter
--- OUTSIDE RECORDS SUMMARY | 2024-04-21 01:30 | External Medical Summary | Summary of Care ---
Author Name Unknown Organization [facility] Address [address] [place] [address] Phone [phone] Care Team Providers Care Learning Facilitator Name Role Phone Edu Torre MD Primary Care Provider [phone] Reason for Visit * Reason Onset Date Comments Other 03/09/2024 Encounter Details Date Type Department Care Team (Late st Contact Info) Description 03/09/2024 Telephone Care Coordination and Integration [address] [place] [address] Tanya Carpio OSA [address] [place] [address] Other Allergies Active Allergy Reactions Criticality Noted Date Comments Prochlorperazine 07/30/2022 Morphine And Codeine 07/30/2022 documented as of this encounter (statuses as of 03/09/2024) Medications Medication Sig Dispensed Refills Start Date [...] as of this encounter (statuses as of 03/09/2024) Active Problems Problem Noted Date Diagnosed Date [...] as of this encounter (statuses as of 03/09/2024) Resolved Problems Problem Noted Date Diagnosed Date Resolved Date Bipolar disorder 07/30/2022 11/15/2022 Overview: More recent.specified code listed on PL documented as of this encounter (statuses as of 03/09/2024) Immunizations Name Administration Dates Next Due Pneumococcal [...] Telephone Encounter - Tanya Carpio OSA - 03/09/2024 10:41 AM EDT Received a PC from the member stat she gt a call at [phone] monrining from the cm and was returning the call. I let her know I dont see any notes for the outreach the morning. CM is not available to speak so I let her know I would put a note through to ave the cm return the call. Best callback number is [phone] documented in this encounter Plan of Treatment Upcoming Encounters Date Type Department Care Team (Late st Contact Info) Description 03/10/2024 3:00 PM EDT Office Visit [facility] [address] [facility] [place] [address] Edu Torre MD [address] [place] [address] 03/10/2024 4:20 PM EDT Telemedicine Neurology, [place] Shweta Villa [address] [place] [address] Chung Santos MD [address] [place] [address] 03/29/2024 12:00 PM EDT Office Visit Psychiatry, Zachary Mortensen [address] [place] [address] Yahaira Adams CRNP [address] [place] [address] 04/28/2024 11:30 AM EDT Hospital Encounter ENDO [facility], Endoscopy Room [facility] [address] [place] [phone] Tate Dye MD [address] [place] [address] 04/28/2024 11:30 AM EDT - 04/28/2024 12:15 PM EDT Surgery ENDO [facility], Endoscopy Room [facility] [address] [place] [phone] Tate Dye MD [address] [place] [address] COLONOSCOPY FLEXIBLE PROXIMAL DIAGNOSTIC 05/07/2024 2:00 PM EDT Office Visit Audiology [facility] [address] [place] [address] Zonia Marvin Au.D. [address] [place] [address] 07/21/2024 3:00 PM EDT Office Visit [facility], [facility] [place] [address] Arturo Ewnig MD [address] [place] [address] [place] [address] Scheduled Procedures Name Priority Associated Diagnoses Date/Ti [...] D LEVEL ONCE IN A LIFETIME-USE SMARTSET# [id number] Completed 01/27/2023, 08/13/2022 Pneumococcal Vaccine: 65+ Years [...] filedocumented as of this encounter Care Teams Learning Facilitator Relationship Specialty Start Date End Date January, Edu Camacho MD [address] [place] [address] PCP - General Family Medicine 07/30/22 documented as of this encounter
--- OUTSIDE RECORDS SUMMARY | 2024-04-21 01:30 | External Medical Summary | Summary of Care ---
Author Name Unknown Organization [facility] Address [address] [place] [address] Phone [phone] Care Team Providers Care Insulation Board Calender Operator Name Role Phone Edu Torre MD Primary Care Provider [phone] Reason for Visit * Reason Onset Date Comments Other 02/25/2024 Encounter Details Date Type Department Care Team (Late st Contact Info) Description 02/25/2024 Telephone Psychiatry, Zachary Mortensen [address] [facility] [place] [address] Yahaira Adams CRNP [address] [facility] [place] [address] Other (/) Allergies Active Allergy Reactions Criticality Noted Date Comments Prochlorperazine 07/30/2022 Morphine And Codeine 07/30/2022 documented as of this encounter (statuses as of 02/27/2024) Medications Medication Sig Dispensed Refills Start Date [...] Tablet by mouth in the morning. 3 Active Topiramate 50 MG Oral Tablet (topAMAX) Take 1 Tablet by mouth in the morning. 90 Tablet 3 3 Active Myrbetriq 50 MG Oral Tablet Extended Release 24 Hour (Mirabegron ER) Take 1 Tablet by mouth in the morning. 30 Tablet 11 3 Active Estradiol 0.1 MG/GM Vaginal Cream (Estrace) Apply pea sized amount (0.5 gm) vaginally twice a week at bedtime. 42.5 g 3 3 Active Alendronate Sodium 70 MG Oral Tablet (Fosamax)Indication s:Age-related osteoporosis with current pathological fracture, initial encounter Take 1 Tablet by mouth once a week. with 8 oz. water 30 minutes before first meal of the day. Remain upright for 30 min after taking tablet. 15 Tablet 1 3 Active Levocetirizine Dihydrochloride 5 MG Oral TabletIndications:C OVID-19 TAKE ONE TABLET BY MOUTH EVERY EVENING 100 Tablet 2 3 09/01/20 24 Active Nitrofurantoin Monohyd Macro 100 MG Oral Capsule (Macrobid) Take 1 Capsule by mouth in the morning and 1 Capsule before bedtime. With food.. 90 Capsule 1 3 Active Benzonatate 100 MG Oral CapsuleIndications: Viral URI Take 2 Capsules by mouth 3 times a day as needed for Cough. 30 Capsule 1 3 Active Ondansetron 4 MG Oral Tablet Disintegrating (Zofran)Indications :Nausea Place 1 Tablet on tongue every 8 hours as needed for Nausea. dissolve on tongue. 20 Tablet 3 Active Omeprazole 40 MG Oral Capsule Delayed Release (PriLOSEC)Indicatio ns:Gastroesophageal reflux disease, unspecified whether esophagitis present TAKE ONE CAPSULE BY MOUTH EVERY MORNING ONE HOUR BEFORE THE FIRST MEAL OF THE DAY. 100 Capsule 3 4 01/03/20 25 Active DULoxetine HCl 30 MG Oral Capsule Delayed Release Particles (Cymbalta)Indicatio ns:EVANS (generalized anxiety disorder),Panic disorder Take 1 Capsule by mouth in the morning and 1 Capsule before bedtime. 180 Capsule 4 Active clonazePAM 0.5 MG Oral Tablet (KlonoPIN)Indicatio ns:Bipolar I disorder, most recent episode depressed (HCC) Take 1 Tablet by mouth in the morning and 1 Tablet in the evening. 60 Tablet 4 Active DULoxetine HCl 20 MG Oral Capsule Delayed Release Particles (Cymbalta)Indicatio ns:Bipolar I disorder, most recent episode depressed (HCC),EVANS (generalized anxiety disorder) Take 1 Capsule by mouth every night at bedtime. With 30 mg capsule 90 Capsule 4 Active traZODone HCl 100 MG Oral Tablet (Desyrel)Indication s:EVANS (generalized anxiety disorder),Panic disorder Take 2 Tablets by mouth at bedtime. 180 Tablet 1 4 Active HYDROcodone-Acetami nophen 5-325 MG Oral TabletIndications:L umbar radiculopathy Take 1 Tablet by mouth every 6 hours as needed for severe pain 120 Tablet 4 Active ARIPiprazole 15 MG Oral Tablet (Abilify)Indication s:Bipolar I disorder, most recent episode depressed (HCC) Take 1 Tablet by mouth every night at bedtime. 90 Tablet 4 Active Propranolol HCl 10 MG Oral Tablet (Inderal)Indication s:EVANS (generalized anxiety disorder),Panic disorder Take one tablet by mouth in the morning and one tablet in the afternoon 180 Tablet 4 Active Propranolol HCl 10 MG Oral Tablet (Inderal)Indication s:EVANS (generalized anxiety disorder),Panic disorder Take one tablet by mouth in the morning and one tablet at noon 180 Tablet 4 02/27/20 24 Discontinued(Re fill) ARIPiprazole 2 MG Oral Tablet (Abilify)Indication s:Bipolar I disorder, most recent episode depressed (HCC) Take 1 Tablet by mouth every night at bedtime. 90 Tablet 4 02/27/20 24 Discontinued ARIPiprazole 10 MG Oral Tablet (Abilify)Indication s:Bipolar I disorder, most recent episode depressed (HCC) Take 1 Tablet by mouth every night at bedtime. 90 Tablet 4 02/27/20 24 Discontinued(Re fill) documented as of this encounter (statuses as of 02/27/2024) Active Problems Problem Noted Date Diagnosed Date [...] as of this encounter (statuses as of 02/27/2024) Resolved Problems Problem Noted Date Diagnosed Date Resolved Date Bipolar disorder 07/30/2022 11/15/2022 Overview: More recent.specified code listed on PL documented as of this encounter (statuses as of 02/27/2024) Immunizations Name Administration Dates Next Due Pneumococcal Conjugate Vaccine, 20-valent (Prevn ar20) 04/22/2023 documented as of this encounter Social History Tobacco Use Types Packs/Day Years Used Date Smoking Tobacco: Never Passive Smoke Exposure: Past Smokeless Tobacco: Never Alcohol Use Standard Drinks/Week Comments Never 0 (1 standard drink = 0.6 oz pur e alcohol) PHQ-2 Answer Date Recorded PHQ Adult Total Score 19 01/09/2024 Hunger Vital Sign Answer Date Recorded Within [...] encounter Miscellaneous Notes * Telephone Encounter - Adams, DEWAYNE Ruiz - 02/27/2024 3:57 PM EDT Pt called to state her medications are not working for her and she can't stop shaking. She relates her daughter told her to get her act together or she will have to move out. Requested pt's daughter be a part of the appt, as she manages pt's medications. Pt's daughter reviewed they had gone away for the weekend to a hotel - her mother was very disagreeable while away from the home and the family had to return a day early due to patient's demands. Pt's daughter admits she was very frustrated by this and did give her mother feedback that her negativity is difficult to manage. Pt's daughter is feeling stressed about pt's mood and behaviors. Patient is apologetic, stating she can not control herself. We discussed the thoughts that she is experiencing, and patient, her daughter and myself are concerned there is state of paranoia that patient is afraid her daughter is going to abandon her andkick her out of the home. Patient perseverates on this thought which increases her anxiety. Discussed benefit of increasing aripiprazole to 15 mg at bedtime from 12 mg. Also discussed importance of being vigilant of exacerbation of restlessness or indications of tardive dyskinesia with increased dose of medicine. Patient also is scheduled for follow-up with primary care provider on March 10 and Neurology on March 10. Patient's daughter offered possible benefit of alternating between propranolol and Klonopin for improved management of anxiety symptoms. I am in agreement with this. Klonopin will be administered at noon and 6:00 p.m. and propranolol will be administered in the morning and at 3:00 p.m.. Patient anddaughter in agreement with recommendations prescriptions provided, patient is scheduled for follow-up appointment in 1 month. * Telephone Encounter - Danay Hugo OSA - 02/25/2024 4:15 PM EDT Patient call back regarding her meds. Noted to patient that you were out of the office for today and I will asked that you please give her a call back on tomorrow. * Telephone Encounter - Kenna Quintanilla OSA - 02/25/2024 3:24 PM EDT Patient calling to talk to you about her meds - states they are not working and she doesn't have anappt until 03/29/24. Patient - [phone] documented in this encounter Plan of Treatment Upcoming Encounters Date Type Department Care Team (Late st Contact Info) Description 03/10/2024 3:00 PM EDT Office Visit [facility] [address] [place] [phone] Edu Torre MD [address] [place] [address] 03/10/2024 4:20 PM EDT Telemedicine [place]rology, [place] Sh[facility]eta [address] [place] [address] Chung Santos MD [address] [place] [address] 03/29/2024 12:00 PM EDT Office Visit Psychiatry, [facility] [address] [facility] [place] [address] Yahaira Adams CRNP [address] [facility] [place] [address] 04/28/2024 11:15 AM EDT Hospital Encounter ENDO [facility], Endoscopy Room [facility] [address] [place] [phone] Tate Dye MD [address] [place] [address] 04/28/2024 11:15 AM EDT - 04/28/2024 12:15 PM EDT Surgery ENDO [facility], Endoscopy Room [facility] [address] [place] [phone] Tate Dye MD [address] [place] [address] COLONOSCOPY FLEXIBLE PROXIMAL DIAGNOSTIC 05/07/2024 2:00 PM EDT Office Visit Audiology [facility] [address] [facility] [place] [address] Zonia Marvin Au.D. [address] [place] [address] 07/21/2024 3:00 PM EDT [facility] [place] [address] Arturo Ewing MD [address] [place] [address] [place] [id number] Scheduled Procedures Name Priority Associated Diagnoses Date/Ti [...] Screening 08/29/2023 Fecal Occult Blood Test 08/29/2023 08/29/20 22, 08/29/2022 Depression, Most Recent Scor e >= 10 (will fire each visit until score < 10) 01/10/2024 01/09/2024 Mammogram 02/15/2024 02/14/2023, 02/14/2023 Influenza Vaccine (FLU shot) (Season Ended) 2024 DXA Scan 01/27/2025 01/27/2023 Lipid Panel 08/13/2027 08/13/2022 VITAMIN D LEVEL ONCE IN A LIFETIME-USE SMARTSET# [id number] Completed 01/27/2023, 08/13/2022 Pneumococcal Vaccine: 65+ Years [...] as of this encounter Visit Diagnoses Diagnosis Bipolar I disorder, most recent episode depressed (HCC) Bipolar I disorder, most recent episode (or current) depressed, unspecified EVANS (generalized anxiety disorder) Generalized anxiety disorder Panic disorder Panic disorder without agoraphobia Adenomatous polyp of colon, unspecified part of colon Gastroesophageal reflux disease with esophagitis without hemorrhage documented in this encounter Care Teams Insulation Board Calender Operator Relationship Specialty Start Date End Date January, Edu Camacho MD [address] [place] [address] PCP - General Family Medicine 07/30/22 documented as of this encounter
--- OUTSIDE RECORDS SUMMARY | 2024-04-21 01:30 | External Medical Summary | Summary of Care ---
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 DEVELOPMENT/LEARNING HISTORY: Developmental/learning disabilities were absent. Past Medical History: Diagnosis Date Bipolar disorder (HCC) 07/30/2022 More recent.specified code listed on PL Cataract Hip pain Knee pain Migraines Tardive dyskinesia Past Surgical History: Procedure Laterality Date KNEE ARTHROSCOPY/SURGERY Right ME APPENDECTOMY SHOULDER SURGERY PROCEDURE NEC Left 2022 dr napoles, [facility] SURGICAL PROCEDURE ONLY 11/25/[address] Mancia TOTAL ABD HYSTERECTOMY W/WO REMOVAL OF TUBE(S) age 49 Social History Tobacco Use Smoking status: Never Passive exposure: Past Smokeless tobacco: Never Vaping Use Vaping status: Never Used Substance Use Topics Alcohol use: Not Currently Comment: last in 1998 Drug use: Never Family History Problem Relation Name Age of Onset Depression Mother Heart Disorder Mother s/p pacemaker Gastro-intestinal disorder Mother diverticulitis Alcohol and Other Disorders Associated Father alcohol Lung cancer Father small cell Cirrhosis Father No Known Problems Sister Ana Anxiety Disorder Daughter Depression Daughter Uterine cancer Daughter Addiction problem Daughter Suicide attempts Aunt (Maternal) No Known Problems Brother (Half) Butchie Family Status Relation Status Mo at age 92 from heart problems Fa at age 70 from small cell lung cancer Sis at age 32 from electrocution Aundrea Alive Aundrea Alive MAUNT HBRO Alive, age 60 - 61y Review of patient's allergies indicates: Allergen Reactions Compazine [Prochlorperazine] Other (Please comment) Generalized weakness Morphine And Codeine Nausea/vomiting and Other (Please comment) Room spinning as well Current Outpatient Medications Medication Sig Dispense Refill Atorvastatin Calcium 40 MG Oral Tablet (Lipitor) Take 1 Tablet by mouth in the morning. Fiber 625 MG Oral Tablet Take 1 Tablet by mouth daily. polyethylene glycol 3350 119 gram OR POWD Take 119 g by mouth as needed for Constipation. AZO Cranberry 250-30 MG Oral Tablet Take 1 Tablet by mouth daily. Topiramate 50 MG Oral Tablet (topAMAX) Take 1 Tablet by mouth in the morning. (Patient taking differently: Take 1 Tablet by mouth at bedtime.) 90 Tablet 3 Myrbetriq 50 MG Oral Tablet Extended Release 24 Hour (Mirabegron ER) Take 1 Tablet by mouth in the morning. 30 Tablet 11 Levocetirizine Dihydrochloride 5 MG Oral Tablet TAKE ONE TABLET BY MOUTH EVERY EVENING 100 Tablet 2 Nitrofurantoin Monohyd Macro 100 MG Oral Capsule (Macrobid) Take 1 Capsule by mouth in the morning and 1 Capsule before bedtime. With food.. 90 Capsule 1 Ondansetron 4 MG Oral Tablet Disintegrating (Zofran) Place 1 Tablet on tongue every 8 hours as needed for Nausea. dissolve on tongue. 20 Tablet 0 Omeprazole 40 MG Oral Capsule Delayed Release (PriLOSEC) TAKE ONE CAPSULE BY MOUTH EVERY MORNING ONE HOUR BEFORE THE FIRST MEAL OF THE DAY. 100 Capsule 3 DULoxetine HCl 30 MG Oral Capsule Delayed Release Particles (Cymbalta) Take 1 Capsule by mouth in the morning and 1 Capsule before bedtime. 180 Capsule 0 clonazePAM 0.5 MG Oral Tablet (KlonoPIN) Take 1 Tablet by mouth in the morning and 1 Tablet in the evening. 60 Tablet 0 DULoxetine HCl 20 MG Oral Capsule Delayed Release Particles (Cymbalta) Take 1 Capsule by mouth every night at bedtime. With 30 mg capsule 90 Capsule 0 traZODone HCl 100 MG Oral Tablet (Desyrel) Take 2 Tablets by mouth at bedtime. 180 Tablet 1 HYDROcodone-Acetaminophen 5-325 MG Oral Tablet Take 1 Tablet by mouth every 6 hours as needed for severe pain 120 Tablet 0 ARIPiprazole 15 MG Oral Tablet (Abilify) Take 1 Tablet by mouth every night at bedtime. 90 Tablet 0 Propranolol HCl 10 MG Oral Tablet (Inderal) Take one tablet by mouth in the morning and one tablet in the afternoon 180 Tablet 0 Alendronate Sodium 70 MG Oral Tablet (Fosamax) Take one Tablet by mouth once a week. with 8 oz. water 30 minutes before first meal of the day. Remain upright for 30 min after taking tablet. 12 Tablet1 Estradiol 0.1 MG/GM Vaginal Cream (Estrace) Apply pea sized amount (0.5 gm) vaginally twice a week at bedtime. 42.5 g 3 Benzonatate 100 MG Oral Capsule Take 2 Capsules by mouth 3 times a day as needed for Cough. 30 Capsule 1 No current facility-administered medications for this visit. May have taken higher dose duloxetine but made her too tired. She states she is taking the hydrocodone-acetaminophen for shoulder pain and knee pain. DATA VIEWED: EEG ordered in EMR but not performed it appears. First mention of seizure history in the EMR is from a 10/08/2022 note. A 10/07/2023 anesthesia note states last seizure was in 2018 but then a 11/04/2023 telephone encounter stated seizure last a year before (so late 2021 or early 2022?). A 07/30/2022 note may be the first in EMR to mention memory. Okay 01/27/2023 vitamin D, 01/27/2023 vitamin B12, 08/13/2022 TSH, 08/13/2022 hemoglobin A1C, 08/13/2022 cholesterol, 01/27/2023 CMP, 09/05/2023 CBC, 08/13/2022 RPR, 11/26/2022 medical ethanol. No whole blood thiamine, folic acid, homocysteine, magnesium, phosphorus, syphilis screen, toxicology. PHYSICAL EXAMINATION: General - On examination today, the patients general appearance was well nourished, well developed, in no apparent distress. Cognitive Screen Mini Mental State Exam Question: Answer: Patient is oriented to the year, season, date, day, month? 3 out of 5 (03/10/241599) Patient is oriented to the state, country, town, hospital/clinic, floor? 5 out of 5 (03/10/241599) Patient repeated three words (ex: ball, flag, tree) 3 out of 3 (03/10/241599) Patient counted backwards from 100 by 7's (93, 86, 79, 72, 65) or spelled WORLD backwards (D, L, R,O W) 5 out of 5 (03/10/241599) Patient recalled the three words previously asked (ball, flag, tree) 3 out of 3 (03/10/241599) Patient is able to identify a watch and pencil 2 out of 2 (03/10/241599) Patient is able to repeat "No ifs, ands or buts" 0 out of 1 (03/10/241599) Patient is able to take a piece of paper, fold in half and place on the floor 3 out of 3 (03/10/241599) Patient is able to read and follow directions (show patient card reading "close your eyes") 1 out of 1 (03/10/241599) Patient is able to write a sentence 1 out of 1 (03/10/241599) Patient is able to copy a drawing of intersecting pentagons 1 out of 1 (03/10/241599) Score 27 (03/10/241599) Comments (not recorded) 02/28/2023 MMSE 28/30 Additional Information - When conducting this visit, I was at my office at [facility]rology [facility]. Patient location: HOME. I was in a hospital or clinic location. After connecting through televideo,patient was verified with two unique identifiers. Patient (or authorized legal workforce services representative) was then informed that this was a Telemedicine visit and being conducted confidentially over secure lines. Methods to assure confidentiality were taken. Patient acknowledged consent and understanding of p rivacy and security of the Telemedicine visit. The patient agreed to participate. I personally spent time on this case from 4:20 PM to 5:35 PM for a total of 75 minutes. Thank you once for consulting us on this interesting case. Assessment and plan can be found at the beginning of this consultation note. documented in this encounter Plan of Treatment Upcoming Encounters Date Type Department Care Team (Latest Contact Info) Description 03/29/2024 12:00 PM EDT Office Visit Psychiatry, [facility] [address] [facility], [place] [address] [place], DEWAYNE Ruiz [address] [facility] [address] [address] 04/28/2024 11:30 AM EDT Hospital Encounter ENDO [facility], Endoscopy Room [facility] [address] [place] [address] Tate Dye MD [address] [place] [address] 04/28/2024 11:30 AM EDT - 04/28/2024 12:15 PM EDT Surgery ENDO [facility], Endoscopy Room [facility] [address] [place] [address] Tate Dye MD [address] [place] [address] COLONOSCOPY FLEXIBLE PROXIMAL DIAGNOSTIC 05/07/2024 2:00 PM EDT Office Visit Audiology [facility] [address] [place] [address] Zonia Marvin Au.D. [address] [place] [address] 07/21/2024 3:00 PM EDT Office Visit Urology, [facility] [address] [place] [address] Arturo Ewing MD [address] [place] [address] [place] [address] Scheduled Orders Name Type Priority Associated Diagnoses Orde r Schedule VITAMIN B1 (THIAMINE), BLOOD, LC/MS/MS Lab Routine Memory loss Expected: 03/10/2024, Expires: 03/10/2025 FOLIC ACID Lab Routine Memory loss Expected: 03/10/2024, Expires: 03/10/2025 HOMOCYSTEINE Lab Routine Memory loss Expected: 03/10/2024, Expires: 03/10/2025 MAGNESIUM Lab Routine Memory loss Expected: 03/10/2024, Expires: 03/10/2025 PHOSPHORUS Lab Routine Memory loss Expected: 03/10/2024, Expires: 03/10/2025 SYPHILIS ANTIBODY SCREEN WITH REFLEX TO RPR Lab Routine Memory loss Expected: 03/10/2024, Expires: 03/10/2025 TOXICOLOGY, URINESCREEN W/ CONFIRMATION Lab Routine Memory loss Expected: 03/10/2024, Expires: 03/10/2025 MRI BRAIN MEMORY COGNITION WO CONTRAST Medical Imaging Routine Memory loss Expected: 03/10/2024, Expires: 04/09/2025 Scheduled Procedures Name Priority Associated Diagnoses Date/Ti [...] Occult Blood Test 08/29/2023 08/29/20 22, 08/29/2022 Mammogram 02/15/2024 02/14/2023, 02/14/2023 Influenza Vaccine (FLU shot) (Season Ended) 2024 DXA Scan 01/27/2025 01/27/2023 Depression Monitoring 03/01/2025 03/01/2024 Lipid Panel 08/13/2027 08/13/2022 VITAMIN D LEVEL ONCE IN A LIFETIME-USE SMARTSET# [id number] Completed 01/27/2023, 08/13/2022 Pneumococcal Vaccine: 65+ Years [...] as of this encounter Visit Diagnoses Diagnosis Memory loss- Primary Medication side effect Unspecified adverse effect of unspecified drug, medicinal and biological substance Sleep disturbance Sleep disturbance, unspecified Adenomatous polyp of colon, unspecified part of colon Gastroesophageal reflux disease with esophagitis without hemorrhage documented in this encounter Care Teams Functional Mental Disability Teacher Relationship Specialty Start Date End Date January, Edu Camacho MD [address] [place] [address] PCP - General Family Medicine 07/30/22 documented as of this encounter
--- OUTSIDE RECORDS SUMMARY | 2024-04-21 01:30 | External Medical Summary | Summary of Care ---
Author Name Unknown Organization [facility] Address [address] [place] [address] Phone [phone] Care Team Providers Care Waste Water Or Water Plant Operator Name Role Phone Edu Nguyen MD Primary Care Provider [phone] Reason for Visit * Reason Comments Medication Refill Encounter Details Date Type Department Care Team (Late st Contact Info) Description 03/05/2024 Refill [facility] [address] [place] [address] Edu Nguyen MD [address], [place] [id number] Age-related osteoporosis with current pathological fracture, initial encounter Allergies Active Allergy Reactions Criticality Noted Date Comments Prochlorperazine 07/30/2022 Morphine And Codeine 07/30/2022 documented as of this encounter (statuses as of 03/05/2024) Medications Medication Sig Dispensed Refills Start Date [...] 08/01/2023 Active Levocetirizine Dihydrochloride 5 MG Oral TabletIndications:CO VID-19 TAKE ONE TABLET BY MOUTH EVERY EVENING 100 Tablet 2 09/02/2023 4 Active Nitrofurantoin Monohyd Macro 100 MG Oral Capsule (Macrobid) Take 1 Capsule by mouth in the morning and 1 Capsule before bedtime. With food.. 90 Capsule 1 09/05/2023 Active Benzonatate 100 MG Oral CapsuleIndications:V iral [...] 01/02/2024 Active clonazePAM 0.5 MG Oral Tablet (KlonoPIN)Indication [...] at bedtime. 180 Tablet 1 02/13/2024 Active HYDROcodone-Acetamin ophen 5-325 MG Oral TabletIndications:Dorinda mbar radiculopathy Take 1 Tablet by mouth every 6 hours as needed for severe pain 120 Tablet 02/17/2024 Active ARIPiprazole 15 MG Oral Tablet (Abilify)Indications [...] taking tablet. 12 Tablet 1 03/05/2024 Active Alendronate Sodium 70 MG Oral Tablet (Fosamax)Indications :Age-related osteoporosis with current pathological fracture, initial encounter Take 1 Tablet by mouth once a week. with 8 oz. water 30 minutes before first meal of the day. Remain upright for 30 min after taking tablet. 15 Tablet 1 07/24/2023 4 Discontinu ed(Refill) documented as of this encounter (statuses as of 03/05/2024) Active Problems Problem Noted Date Diagnosed Date [...] as of this encounter (statuses as of 03/05/2024) Resolved Problems Problem Noted Date Diagnosed Date Resolved Date Bipolar disorder 07/30/2022 11/15/2022 Overview: More recent.specified code listed on PL documented as of this encounter (statuses as of 03/05/2024) Immunizations Name Administration Dates Next Due Pneumococcal [...] encounter Miscellaneous Notes * Telephone Encounter - Maria Luisa Simpson [facility] - 03/05/2024 12:51 PM EDTSigned Prescriptions: Disp Refills Alendronate Sodium 70 MG Oral Tablet (Fosa*12 Tab*1 Sig: Take 1 Tablet by mouth once a week. with 8 oz. water 30 minutes before first meal of the day. Remain upright for 30 min after taking tablet. Authorizing Provider: EDU NGUYEN Ordering User: MARIA LUISA SIMPSON -------- * Telephone Encounter - Alexia Posada, warehouse order filler - 03/05/2024 12:37 PM EDT Did you pend patient's preferred pharmacy and medication before forwarding?yes Pharmacy: [facility] Pending Prescriptions: Disp Refills Alendronate Sodium 70 MG Oral Tablet (Fos*15 Tab*1 Sig: Take 1 Tablet by mouth once a week. with 8 oz. water 30 minutes before first meal of the day. Remain upright for 30 min after taking tablet. Last Visit: 01/14/2024 (in office), 08/27/2022 (telemedicine) Next Visit: 03/10/2024 If no future appointments scheduled, and last appointment is greater than a year ago, please schedule patient for a follow-up appointment Last date the medication was ordered: 07/24 Is this request for a controlled substance?No Urine Drug Screen: Results for orders placed or performed in visit on 09/06/22 PAIN MANAGEMENT DRUG PANEL, URINE W/ INTERPRETATION Result Value Compliance Interpretation Based on the medication information provided and from [facility]: Please note hydrocodone and hydrocodone metabolite, dihydrocodeine, [...] purposes. Confirmatory testing is available upon request. Patient Phone Numbers Labs: Lab Results Component Value Date/Time CREAT 0.9 09/05/2023 02:50 PM CREAT 0.77 11/27/2022 05:33 AM POTASSIUM 4.2 09/05/2023 02:50 PM POTASSIUM 4.0 11/27/2022 05:33 AM TSH 0.95 08/13/2022 11:56 AM LDLCALC 95 08/13/2022 11:56 AM ALT 12 01/27/2023 01:59 PM HGBA1C 5.6 08/13/2022 11:56 AM documented in this encounter Plan of Treatment Upcoming Encounters Date Type Department Care Team (Late st Contact Info) Description 03/10/2024 3:00 PM EDT Office Visit [facility] [address] [place] [address] JanuaryEdu MD [address] [place] [address] 03/10/2024 4:20 PM EDT Telemedicine Neurology, [address] [place] [address] Chung Santos MD [address] [place] [address] 03/29/2024 12:00 PM EDT Office Visit Psychiatry, [facility] [address] [place] [address] Yahaira Adams CRNP [address] [place] [address] 04/28/2024 11:15 AM EDT Hospital Encounter ENDO [facility], Endoscopy Room [facility] [address] [place] [address] Tate Dye MD [address] [place] [address] 04/28/2024 11:15 AM EDT - 04/28/2024 12:15 PM EDT [facility] [address] [facility] [place] [phone] Tate Dye MD [address] [place] [address] COLONOSCOPY FLEXIBLE PROXIMAL DIAGNOSTIC 05/07/2024 2:00 PM EDT Office Visit Audiology [facility] [address] [facility] [place] [address] Zonia Marvin Au.D. [address] [facility] [place] [address] 07/21/2024 3:00 PM EDT Office Visit Urology, [facility] [address] [facility] [place] [address] Arturo Ewing MD [address] [facility] [address] [place] [address] Scheduled Procedures Name Priority Associated Diagnoses Date/Ti [...] D LEVEL ONCE IN A LIFETIME-USE SMARTSET# [id number] Completed 01/27/2023, 08/13/2022 Pneumococcal Vaccine: 65+ Years [...] as of this encounter Visit Diagnoses Diagnosis Age-related osteoporosis with current pathological fracture, initial encounter Adenomatous polyp of colon, unspecified part of colon Gastroesophageal reflux disease with esophagitis without hemorrhage documented in this encounter Care Teams Waste Water Or Water Plant Operator Relationship Specialty Start Date End Date January, Edu Camacho MD [address] [place] [address] PCP - General Family Medicine 07/30/22 documented as of this encounter
--- OUTSIDE RECORDS SUMMARY | 2024-04-21 01:30 | External Medical Summary | Summary of Care ---
Author Name Unknown Organization [facility] Address [address] [place] [address] Phone [phone] Care Team Providers Care Certified Executive Chef Name Role Phone Andrés Nguyen MD Primary Care Provider [phone] Reason for Visit * Reason Comments Medication Refill Encounter Details Date Type Department Care Team (Late st Contact Info) Description 02/15/2024 Refill [facility] [address] [place] [address] Andrés Nguyen MD [address], [place] [phone] Lumbar radiculopathy Allergies Active Allergy Reactions Criticality Noted Date Comments Prochlorperazine 07/30/2022 Morphine And Related 07/30/2022 documented as of this encounter (statuses as of 02/17/2024) Medications Medication Sig Dispensed Refills Start Date [...] at bedtime. 42.5 g 3 08/01/2023 Active Alendronate Sodium 70 MG Oral Tablet (Fosamax)Indications :Age-related osteoporosis with current pathological fracture, initial encounter Take 1 Tablet by mouth once a week. with 8 oz. water 30 minutes before first meal of the day. Remain upright for 30 min after taking tablet. 15 Tablet 1 07/24/2023 Active Levocetirizine Dihydrochloride 5 MG Oral TabletIndications:CO [...] Capsule before bedtime. 180 Capsule 01/02/2024 Active Propranolol HCl 10 MG Oral Tablet (Inderal)Indications :EVANS (generalized anxiety disorder),Panic disorder Take one tablet by mouth in the morning and one tablet at noon 180 Tablet 01/02/2024 Active ARIPiprazole 2 MG Oral Tablet (Abilify)Indications :Bipolar I disorder, most recent episode depressed (HCC) Take 1 Tablet by mouth every night at bedtime. 90 Tablet 02/13/2024 Active ARIPiprazole 10 MG Oral Tablet (Abilify)Indications :Bipolar I disorder, most recent episode depressed (HCC) Take 1 Tablet by mouth every night at bedtime. 90 Tablet 02/13/2024 Active clonazePAM 0.5 MG Oral Tablet (KlonoPIN)Indication [...] for severe pain 120 Tablet 02/17/2024 Active HYDROcodone-Acetamin ophen 5-325 MG Oral TabletIndications:Dorinda mbar radiculopathy Take 1 Tablet by mouth every 6 hours as needed for severe pain 120 Tablet 01/16/2024 4 Discontinu ed(Refill) documented as of this encounter (statuses as of 02/17/2024) Active Problems Problem Noted Date Diagnosed Date [...] as of this encounter (statuses as of 02/17/2024) Resolved Problems Problem Noted Date Diagnosed Date Resolved Date Bipolar disorder 07/30/2022 11/15/2022 Overview: More recent.specified code listed on PL documented as of this encounter (statuses as of 02/17/2024) Immunizations Name Administration Dates Next Due Pneumococcal [...] Telephone Encounter - Andrés Nguyen MD - 02/17/2024 1:41 PM EDTSigned Prescriptions: Disp Refills HYDROcodone-Acetaminophen 5-325 MG Oral Ta*120 Ta*0 Sig: Take 1 Tablet by mouth every 6 hours as needed for severe pain Authorizing Provider: ANDRÉS NGUYEN * Telephone Encounter - Nereyda Echols [facility] - 02/17/2024 12:34 PM EDTPending Prescriptions: Disp Refills HYDROcodone-Acetaminophen 5-325 MG Oral Ta*120 Ta*0 Sig: Take 1 Tablet by mouth every 6 hours as needed for severe pain * Telephone Encounter - Nereyda Echols [facility] - 02/17/2024 12:34 PM EDT I have reviewed the patients controlled substance dispensing history in the Prescription Drug Monitoring Program in compliance with the [facility] regulations before prescribing a controlled substance. PDMP checked on 02/17/2024. Pending Prescriptions: Disp Refills HYDROcodone-Acetaminophen 5-325 MG Oral T*120 Ta*0 Sig: Take 1 Tablet by mouth every 6 hours as needed for severe pain Last Visit: 01/14/2024 (in office), 08/27/2022 (telemedicine) Next Visit: 03/10/2024 Date medication was last filled: 01/17/24 Date medication is due for refill: 02/15/24 Pharmacy: [facility] Is this request for a controlled substance? Yes and Urine Drug Screen Not completed Toxicology results: Results for orders placed or performed in visit on 09/06/22 PAIN MANAGEMENT DRUG PANEL, URINE W/ INTERPRETATION Result Value Compliance Interpretation Based on the medication information provided and from [facility]: Please note hydrocodone and hydrocodone metabolite, dihydrocodeine, [...] available upon request. Please approve if appropriate. ThanksNereyda, PharmD Clinical Pharmacist [facility] ([facility]) [phone] 02/17/2024 12:34 PM documented in this encounter Plan of Treatment Upcoming Encounters Date Type Department Care Team (Late st Contact Info) Description 03/10/2024 3:00 PM EDT Office Visit [facility] [address] [place] [address] Andrés Nguyen MD [address] [place] [address] 03/10/2024 4:20 PM EDT Telemedicine Neurology, [place] [address] [place] [address] Chung Santos MD [address] [place] [address] 03/29/2024 12:00 PM EDT Office Visit Psychiatry, [facility] [address] [place] [address] Yahaira Adams CRNP [address] [facility] [place] [address] 04/28/2024 11:15 AM EDT Hospital Encounter ENDO [facility], Endoscopy Room [facility] [address] [place] [phone] Tate Dye MD [address] [place] [address] 04/28/2024 11:15 AM EDT - 04/28/2024 12:15 PM EDT Surgery ENDO [facility], Endoscopy Room [facility] [address] [place] [phone] Tate Dye MD [address] [place] [address] COLONOSCOPY FLEXIBLE PROXIMAL DIAGNOSTIC 05/07/2024 2:00 PM EDT Office Visit Audiology [facility] [address] [facility] [place] [address] Zonia Marvin Au.D. [address] [place] [address] 07/21/2024 3:00 PM EDT Office Visit Urology, [facility] [address] [facility] [place] [address] Arturo Ewing MD [address] [place] [address] [address] [place] [address] Scheduled Procedures Name Priority Associated Diagnoses Date/Ti ky COLONOSCOPY FLEXIBLE PROXIMA L DIAGNOSTIC Adenomatous polyp [...] Fecal Occult Blood Test 08/29/2023 08/29/20, 08/29/2022 Depression, Most Recent Scor e >= 10 (will fire each visit until score < 10) 01/10/2024 01/09/2024 Mammogram 02/15/2024 02/14/2023, 02/14/2023 Influenza Vaccine (FLU shot) (Season Ended) 2024 DXA Scan 01/27/2025 01/27/2023 Lipid Panel 08/13/2027 08/13/2022 VITAMIN D LEVEL ONCE IN A LIFETIME-USE SMARTSET# [id number] Completed 01/27/2023, 08/13/2022 Pneumococcal Vaccine: 65+ Years [...] hemorrhage documented in this encounter Care Teams Certified Executive Chef Relationship Specialty Start Date End Date January, Andrés Camacho MD [address] [place] [address] PCP - General Family Medicine 07/30/22 documented as of this encounter
--- OUTSIDE RECORDS SUMMARY | 2024-04-21 01:31 | External Medical Summary | Summary of Care ---
Author Name Unknown Organization [facility] Address [address] [place] [address] Phone [phone] Care Team Providers Care Fur Blower Operator Name Role Phone Edu Torre MD Primary Care Provider [phone] Reason for Visit * Reason Onset Date Comments Appointment 01/21/2024 Encounter Details Date Type Department Care Team (Late st Contact Info) Description 01/21/2024 Telephone [facility] [address] [place] [address] Edu Torre MD [address] [place] [address] Appointment Allergies Active Allergy Reactions Criticality Noted Date Comments Prochlorperazine 07/30/2022 Morphine And Related 07/30/2022 documented as of this encounter (statuses as of 01/23/2024) Medications Medication Sig Dispensed Refills Start Date End Date Status Atorvastatin Calcium 40 MG Oral Tablet (Lipitor) Take 1 Tablet by mouth in the morning. 0 Active Fiber 625 MG Oral Tablet Take by mouth. 0 Active polyethylene glycol 3350 119 gram OR POWD Take 119 g by mouth once. 0 Active AZO Cranberry 250-30 MG Oral Tablet Take by mouth. 0 Active Meloxicam 15 MG Oral Tablet Take 1 Tablet by mouth in the morning. 0 01/20/2023 Active Topiramate 50 MG Oral Tablet [...] 07/24/2023 Active Levocetirizine Dihydrochloride 5 MG Oral TabletIndications:COV [...] Nausea. dissolve on tongue. 20 Tablet 0 09/12/2023 Active traZODone HCl 100 MG Oral Tablet (Desyrel)Indications: EVANS (generalized anxiety disorder),Panic disorder Take 2 Tablets by mouth at bedtime. 180 Tablet 1 11/07/2023 Active DULoxetine HCl 20 MG Oral Capsule Delayed Release Particles (Cymbalta)Indications :Bipolar I disorder, most recent episode depressed (HCC),EVANS (generalized anxiety disorder) Take 1 Capsule by mouth every night at bedtime. With 30 mg capsule 90 Capsule 0 11/07/2023 Active ARIPiprazole 10 MG Oral Tablet (Abilify)Indications: Bipolar I disorder, most recent episode depressed (HCC) Take 1 Tablet by mouth every night at bedtime. 90 Tablet 0 12/01/2023 Active Omeprazole 40 MG Oral Capsule Delayed Release (PriLOSEC)Indications :Gastroesophageal reflux disease, unspecified whether esophagitis present TAKE ONE CAPSULE BY MOUTH EVERY MORNING ONE HOUR BEFORE THE FIRST MEAL OF THE DAY. 100 Capsule 3 01/03/2024 Active ARIPiprazole 2 MG Oral Tablet (Abilify)Indications: Bipolar I disorder, most recent episode depressed (HCC) Take 1 Tablet by mouth every night at bedtime. 90 Tablet 0 01/02/2024 Active clonazePAM 0.5 MG Oral Tablet (KlonoPIN)Indications :Bipolar I disorder, most recent episode depressed (HCC) Take 1 Tablet by mouth in the morning and 1 Tablet in the evening. 60 Tablet 0 01/02/2024 Active DULoxetine HCl 30 MG Oral Capsule Delayed Release Particles (Cymbalta)Indications :EVANS (generalized anxiety disorder),Panic disorder Take 1 Capsule by mouth in the morning and 1 Capsule before bedtime. 180 Capsule 0 01/02/2024 Active Propranolol HCl 10 MG Oral Tablet (Inderal)Indications: EVANS (generalized anxiety disorder),Panic disorder Take one tablet by mouth in the morning and one tablet at noon 180 Tablet 0 01/02/2024 Active HYDROcodone-Acetamino phen 5-325 MG Oral TabletIndications:Lum bar radiculopathy Take 1 Tablet by mouth every 6 hours as needed for severe pain 120 Tablet 0 01/16/2024 Active documented as of this encounter (statuses as of 01/23/2024) Active Problems Problem Noted Date Diagnosed Date [...] as of this encounter (statuses as of 01/23/2024) Resolved Problems Problem Noted Date Diagnosed Date Resolved Date Bipolar disorder 07/30/2022 11/15/2022 Overview: More recent.specified code listed on PL documented as of this encounter (statuses as of 01/23/2024) Immunizations Name Administration Dates Next Due Pneumococcal [...] encounter Miscellaneous Notes * Telephone Encounter - Beverley Goodman OSA - 01/23/2024 9:50 AM EDT LMOM. If nothing in [place], patient can be scheduled in surrounding locations. 01/23/2024 * Telephone Encounter - Talita Mccloud OSA - 01/21/2024 2:18 PM EDT Pt has No Appointments Available Patient declined appointments?: No What Visit Type is needed? Acute If Acute Visit Type is needed, were surrounding clinics offered to patient (Yes/No)? N/A Was patient offered appointments with other available providers (Yes/No)? N/A See Call Details? (Yes or No): Yes documented in this encounter Plan of Treatment Upcoming Encounters Date Type Department Care Team (Late st Contact Info) Description 02/13/2024 1:00 PM EDT Telemedicine Psychiatry, [facility] [address] [place] [address] [place], DEWAYNE Ruiz [address] [place] [id number] 03/10/2024 3:00 PM EDT Office Visit [facility] [address] [place] [facility] [place] [address] JanuaryEdu MD [address] [place] [address] 03/10/2024 4:20 PM EDT Telemedicine Neurology, [place] [facility] [address] [place] [address] Chung Santos MD [address] [place] [address] 04/28/2024 11:15 AM EDT Hospital Encounter [facility], Endoscopy Room [facility] [address] [place] [phone] Tate Dye MD [address] [place] [address] 04/28/2024 11:15 AM EDT - 04/28/2024 12:15 PM EDT Surgery ENDO [facility], Endoscopy Room [facility] [address] [place] [phone] Tate Dye MD [address] [place] [address] COLONOSCOPY FLEXIBLE PROXIMAL DIAGNOSTIC 05/07/2024 2:00 PM EDT Office Visit Audiology [facility] [address] [facility] [place] [address] Zonia Marvin Au.D. [address] [facility] [place] [address] 07/21/2024 3:00 PM EDT Office Visit Urology, [facility] [address] [facility] [place] [address] Arturo Ewing MD [address] [facility] [address] [place] [address] Scheduled Procedures Name Priority Associated Diagnoses Date/Ti [...] 1998 Colonoscopy 1998 Sigmoidoscopy 1998 COVID-19 Vaccine (2022- 4 season) 2023 11/20/2020, 10/23/2020 Colorectal Cancer Screening 08/29/2023 Fecal Occult Blood Test 08/29/2023 08/29/20, 08/29/2022 Depression, Most Recent Scor e >= 10 (will fire each visit until score < 10) 01/10/2024 01/09/2024 Mammogram 02/15/2024 02/14/2023, 02/14/2023 Influenza Vaccine (FLU shot) (Season Ended) 2024 DXA Scan 01/27/2025 01/27/2023 Lipid Panel 08/13/2027 08/13/2022 VITAMIN D LEVEL ONCE IN A LIFETIME-USE SMARTSET# [id number] Completed 01/27/2023, 08/13/2022 Pneumococcal Vaccine: 65+ Years [...] filedocumented as of this encounter Care Teams Fur Blower Operator Relationship Specialty Start Date End Date January, Edu Camacho MD [address] [place] [address] PCP - General Family Medicine 07/30/22 documented as of this encounter
--- OUTSIDE RECORDS SUMMARY | 2024-04-21 01:31 | External Medical Summary | Summary of Care ---
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 Cymbalta, but since change, even though pt has been more awake in the day, she has been experiencing panic attacks daily at noon that last for approx 10 minutes. She also continues to feel an overall shakiness internally. Arms and legs feel restless. Pt states sleepand appetite are good. Moods are stable. She has been trying to use breathing techniques to cope with anxiety and panic. Denies SI. She has been taking more personal responsibility and is engaged [employer]'s appt. Plan is to change Cymbalta to 30 mg BID to reduce daytime anxiety; if this dose causes drowsiness, further reduction in AM dose will be considered. Will also start propranolol 10 mg to be taken in the AM and at noon to address anxiety and restlessness. Will reassess EPS/TD symptoms at next appt, asthese symptoms seem to have subsided with restart of Abilify. Continue all medications as noted below. 07/02/23: Pt is not experiencing any TD symptoms. No abnormal movements noted during appt. Pt's daughter has not observed any abnormal movements. Amantadine was discontinued one month ago. Pt is feeling modestly better with being in public, still having anxiety when going to the store. Pt does not feel as anxious about being alone. Pt continues to see therapy on weekly basis. Pt's daughter is concerned that therapist is not pushing her enough with the issues. Pt states she feels comfortable with her therapist and talks about issues when she is ready. Pt states she cries when she thinks about family or looks at pictures, but otherwise, she has not been crying as often. Pt's daughter was worried about pt for the past several weeks due to pt being more quiet, not interacting, low motivation, just watching tv. Pt's daughter is concerned Pt is still sad. Pt discussed feeling sad about her mother dying one year ago. Pt has been taking Klonopin only one time per day on most days. She feels propranolol has been helpful with reducing anxiety. Pt's daughter identifies pt has been sleeping really well until the last several nights. No SI. Last week pt was dx with UTI and was started on medication. She has been experiencing chronic UTIs and was started on Myrbetriq 50 mg daily. Reviewed drug - drug interactions and noted Myrbetriq could increase serum levels of Abilify and duloxetine. Will monitor. Pt states she is happy and content. Plan is to continue medications as prescribed. Will monitor drowsiness, but overall, pt appears to be feeling more stable in mood and with anxiety level. 07/23/23: Pt continues to experience chronic UTIs and currently has another infection. For the past week to 10 days, Pt has been less interactive. Not talking, not playing cards. More tearful , more confused. Pt states she is getting up to go to the bathroom every hour with the infection. Feels depressed - not sure why she feels this way. Thoughts are racing. Has trouble expressing herself clearly. Propranolol has been helpful with anxiety; pt's daughter has been managing clonazepam and pt has been taking clonazepam every day at 330 pm and then again in the evening. No thoughts of wanting to hurt herself Pt states therapy is going well. Discussed benefits of [facility] program; sent message to pt's home health care case manager to provide pt and daughter with more information. Bilateral upper extremity tremor and feelings of tremor in trunk as reported by pt have returned over the past several weeks. Plan is to increase Abilify to 12 mg (by 2 mg) at bedtime to address depression, racing thoughts and anxiety. 08/20/23: Pt states she is not ever feeling well. She states she has a lot of stomach problems. Constipation. We discussed bowel protocol. Anxiety is still present, but somewhat better. Still feels moods are labile and thoughts are racing. Worried thoughts about what might happen the next day. Pt was less worried before falls she reports. Anything outside being at home makes her worry. Depression is present. No SI. Sleep is good - except when anxious thoughts are happening. 2/7 nights it takes more than 1 hour for her to initiate sleep. Patient is no longer displaying involuntary perioral movements; patient states hands continue to be shaky at times. Patient continues to attend individual therapy states that she likes her therapist, they have been working on anxiety management. She has been writing in diary more often now. Likes and says she wants to play games, but daughter states she does not initiate with family. Patient states she feels like a burden to her daughter. Patient is tearful when making statement. Patient's daughter reassures her mother that she wants her to be living in the home and is not a burden. Patient missed perceives her daughter's encouragement and feedback as criticism at times. We discussed how patient's previous experiences in difficult relationships cause her to feel uncertain about her current living situation. Patient's daughter reports patient recently received news that she has another outstanding credit card debt to pay. Patient had thought she had paid all outstanding debts. This was a significant stressor for patient. Discussed [employer] again with patient, as this would be a positive benefit for socialization, health management, and a resource for physical therapy and exercise. Patient given contact number to schedule with [employer]. Patient's daughter reported patient is taking clonazepam 0.25 mg in the afternoon and 0.25 mg at suppertime. Patient requested increase in frequency of clonazepam dosing to treat symptoms of anxiety.Informed patient and her daughter that current prescription is for 0.5 mg up to twice a day for anxiety, and additional dose may be provided at bedtime of 0.25 mg if needed for anxiety management. Toaddress depressive symptoms will increase duloxetine to 30 mg in the morning and 50 mg at bedtime Abilify 12 mg at bedtime and trazodone 200 mg at bedtime we will continue as prescribed. Propranolol 10 mg twice a day at a.m. and noon we will continue as prescribed. 09/26/23: Pt states holidays were very good. Pt describes anxiety as up and down. Pt's daughter states pt is a worrier. Pt states her mother was a worrier. Pt states she has been kind of down - mornings are worst. Sleep is okay. No perioral TD symptoms noted. Pt does state her handwriting is very bad. She attributes it to handshaking. Pt has not been back to neurology. Short term memory is still problematic. Provided telephone number for neurology department per correspondence in patient's chart. Pt is not crying as often. Sad, negative thoughts are a little better. Had been out of trazodone for several days and patient's daughter has now decreased trazodone to 100 mg at bedtime and has shifted clonazepam dose to bedtime along with melatonin 10 mg at bedtime. This has provided adequate sleep. clonazepam now 1500 and bedtime. Melatonin 10 mg QHS. Plan is to continue medications as prescribed with the exception of decreasing trazodone to 100 mg at bedtime and the addition of melatonin 10 mg at bedtime. Referral for [facility] case management submitted per patient request to help coordinate appointments and community resources. 11/07/23: Pt states she is okay. Pt's daughter, Danni, provided update on current medications. Danni states after decrease in trazodone to 100 mg, pt developed an increased irritable mood. Danni increased trazodone to 200 mg at bedtime (previous dose) with improvement in mood resulting. Danni also stated clonazepam 0.5 mg is being given 1 time per day at 3:00 p.m. and is no longer being given at bedtime. Patient has adjusted well to this change. Danni feels propranolol has been helpful in reducing anxiety and decreasing the need for clonazepam. Patient continues to take melatonin 10 mg at bedtime for sleep support. Patient is no longer seeing [facility] for individual therapy, as Danni did not feel goals were being established or obtained in therapy. [facility] case management is assisting with locating options for individual therapy for in- person appointments. Patient has not attended [employer] [facility] program. She notes multiple appointments coming up inthe next several months have her feeling overwhelmed, and not feeling as though she will have time to participate in any other programming. Discussed problem solving to reduce anxiety. Patient states her mood is pretty good right now - a little anxious but not as bad as usual. Plan is to continue reduced dose of clonazepam 0.5 mg in the afternoon, duloxetine 30 mg AM and 50 mg PM, Abilify 12 mg at bedtime, propranolol 10 mg AM and noon, and increase dose of trazodone 200 mg at bedtime (previous dose). 01/02/24: unable to connect to video. Appt completed by telephone. Discussed expectations at the home that her daughter has of her. Pt describes having difficulty with making decisions and feeling anxiety when asked to make decisions. Pt continues clonazepam 0.5 mg at 1500 and sometimes at bedtime. Continues with duloxetine, Abilify, trazodone, and propranolol as prescribed. Has high level of anxiety related to upcoming medical procedures. Pt states she is not sleeping well because she thinks and worries when trying to initiate sleep. Plan is to increase to Clonazepam 0.5 mg 1500 and QHS for anxiety - this was previous dose prior topt's daughter reducing dose in October - until after medical procedures are completed. Will continue all other medications as prescribed. Pt encouraged to consider agreement to [employer] program to increase socialization and opportunities for physical activity. Also continue to encourage individual therapy. 02/13/24: Pt continues to have issues with urinary frequency this is the reason she is afraid to go out in public more frequently. Patient was scheduled for Urology procedure she canceled. Patient stated she has not sure why she canceled it. Patient's daughter reported she canceled it because she tonervous to go. Patient states sleep has been disrupted due to frequent awakenings to urinate through. This causes her to feel tired morning. Clonazepam taken at 3 PM everyday and then again as needed at 6 PM according to pt's daughter. Propranolol is helpful in reducing anxiety, but patient feels it takes too long for it to be effective after taking dose. Patient's daughter reports she has not eating as well as she probably should and questions if this is cause for some of her feelings of shakiness and anxiety. We spent extensiveamount of time talking about appropriate calorie intake, symptoms of low blood sugar, and ways thatpatient can increase her intake with higher protein foods, and lower carbohydrate foods. Patient presented with limited engagement in the conversation. During appointment we discussed ways for relaxation techniques to be effective. Assisted patient inpracticing with deep breathing. Patient states she is difficulty taking deep breaths; she was observed with rapid shallow breathing when trying to do deep breathing exercises. Pt states she is feeling depressed. Not happy with her circumstances. Recommended patient engage inmore social activities outside of the house as a way to mitigate depressed mood. Encouraged patientthat medications are not always the most effective technique in relieving depressed symptoms. Patient and daughter do plan on visiting [facility] next Friday. Patient is strongly encouraged to follow through with this appointment. Diagnosis: Bipolar I disorder, most recent episode depressed EVANS Panic Disorder Tardive Dyskinsia Rule Out PTSD Medications: Continue Clonazepam 0.5 mg 1500 and QHS for anxiety - returned to previous dose Continue Duloxetine 30 mg AM 50 mg PM for mood Continue Abilify 12 mg at bedtime for mood stabilization Continue trazodone 200 mg at bedtime for mood/sleep Continue Propranolol 10 mg BID AM and noon for anxiety and restlessness. Topiramate 50 mg QAM to be managed my medical I have reviewed the patient's controlled substance dispensing history in the Prescription Drug Monitoring Program in compliance with the [facility] regulations before prescribing a controlled substance. Laboratory/Diagnostics: none Community support/Counseling: Continue to offer psychotherapy utilizing Supportive listening as adjunct to evaluation, managementand prescription of psychiatric medications. [facility] case management Individual therapy PCP/medical: Continue to follow up with primary care provider and/or medical specialists as scheduled/appropriate. Recommend [facility] forward - will be touring next Friday. Return Appointment: Lulu Zhong is to return in 6 weeks. Sooner PRN. This treatment plan was reviewed and discussed with the patient. She and/or family had the opportunity to ask questions and agreed with the treatment plan and course of care. Crisis and Treatment Planning: The crisis plan was completed/reviewed and updated as appropriate with the patient. Lulu Zhong participated in developing a crisis plan should he/she experience worsening of symptoms before next follow-up appointment, including being aware of what resources to use according to the urgency and severity of symptoms. Lulu Zhong was able to verbalize understanding of the steps necessary to obtain help between appointments should be needed, from requesting a phone call, to requesting an appointment sooner, including reaching clinic after hours, or accessing emergency mental health and medical services, either at a local emergency department or by activating mobile crisis teams and EMS. Psychoeducation was provided regarding patient's diagnoses and potential treatment modalities, including psychotherapeutic and psychopharmacologic options for treatment. Risks, benefits, alternativesand side effects of medication/s were explained, and the patient verbalized understanding of the ris ks and benefits of using medication as prescribed. The benefits of treatment outweigh the risks. Patient cautioned not to drive, operate heavy machinery, or participate in other tasks requiring full cognitive alertness until they know how new medications will affect them. Pt encouraged to keep all medications out of the reach of children. The patient participated in the development of the treatment plan, verbalized understanding, voices no concerns and is agreeable to the treatment plan. Patient is making an informed medical decision to follow the recommendations outlined in this note. Directed pt to call with any questions or concerns, worsening symptoms and/or ask for earlier appointment. Risk Assessment: Risk assessment was performed for Lulu Zhong. This patient is being treated for mental health conditions as characterized above; at the time of this visit, there was no indication that this patient was either a risk to self, others, or gravely disabled by symptoms of a mental illness. At the time of this evaluation, there were enough protective factors in place and it was deemed safe to continue with treatment on a outpatient basis with return to clinic in the timeframe described above. Health Maintenance: Lulu Zhong was encouraged to keep up to date on regular health maintenance per primary care provider recommendations. Lulu Zhong was encouraged to keep active in productive hobbies and exercise, as this can help manage emotions, improve sleep, wellbeing and overall health. Pt was cautioned to not drink alcohol or use illicit drugs as these can make symptoms worse by blocking the effects of prescribed medications. Advised to avoid tobacco and products containing nicotine and to limit caffeine use. Nicotine and caffeine are stimulants that can cause difficulty with symptom management and pose increased health risks. Please note >38 minutes of counseling time over and above medication management was spent with patient discussing self care and providing supportive therapy, including Supportive listening Problem solving Yahaira Adams, MSN, [employer] PROCESSING TECHNICIAN, PMHNP-BC [facility] Psychiatry [facility] Current Outpatient Medications Medication Sig Dispense Refill ARIPiprazole 2 MG Oral Tablet (Abilify) Take 1 Tablet by mouth every night at bedtime. 90 Tablet 0 ARIPiprazole 10 MG Oral Tablet (Abilify) Take 1 Tablet by mouth every night at bedtime. 90 Tablet 0 clonazePAM 0.5 MG Oral Tablet (KlonoPIN) [...] by mouth at bedtime. 180 Tablet 1 Atorvastatin Calcium 40 MG Oral Tablet (Lipitor) Take 1 Tablet by mouth in the morning. Fiber 625 MG Oral Tablet Take by mouth. polyethylene glycol 3350 119 gram OR POWD Take 119 g by mouth once. AZO Cranberry 250-30 MG Oral Tablet Take by mouth. Meloxicam 15 MG Oral Tablet Take 1 Tablet by mouth in the morning. Topiramate 50 MG Oral Tablet (topAMAX) Take 1 Tablet by mouth in the morning. 90 Tablet 3 Myrbetriq 50 MG Oral Tablet Extended Release 24 Hour (Mirabegron ER) Take 1 Tablet by mouth in the morning. 30 Tablet 11 Estradiol 0.1 MG/GM Vaginal Cream (Estrace) Apply pea sized amount (0.5 gm) vaginally twice a week at bedtime. 42.5 g 3 Alendronate Sodium 70 MG Oral Tablet (Fosamax) Take 1 Tablet by mouth once a week. with 8 oz. water30 minutes before first meal of the day. Remain upright for 30 min after taking tablet. 15 Tablet 1 Levocetirizine Dihydrochloride 5 MG Oral Tablet TAKE ONE TABLET BY MOUTH EVERY EVENING 100 Tablet 2 Nitrofurantoin Monohyd Macro 100 MG Oral Capsule (Macrobid) Take 1 Capsule by mouth in the morning and 1 Capsule before bedtime. With food.. 90 Capsule 1 Benzonatate 100 MG Oral Capsule Take 2 Capsules by mouth 3 times a day as needed for Cough. 30 Capsule 1 Ondansetron 4 MG Oral Tablet [...] 1 Capsule before bedtime. 180 Capsule 0 Propranolol HCl 10 MG Oral Tablet (Inderal) Take one tablet by mouth in the morning and one tablet at noon 180 Tablet 0 HYDROcodone-Acetaminophen 5-325 MG Oral Tablet Take 1 Tablet by mouth every 6 hours as needed for severe pain 120 Tablet 0 No current facility-administered medications for this visit. documented in this encounter Plan of Treatment Upcoming Encounters Date Type Department Care Team (Late st Contact Info) Description 03/10/2024 3:00 PM EDT Office Visit [facility] [address] [place] [id number] Edu Torre MD [address] [place] [address] 03/10/2024 4:20 PM EDT Telemedicine Neurology, [place] [facility] [address] [place] [place] [address] Chung Santos MD [address] [place] [address] 03/29/2024 12:00 PM EDT Office Visit Psychiatry, [facility] [address] [facility] [place] [address] Yahaira Adams CRNP [address] [facility] [place] [address] 04/28/2024 11:15 AM EDT Hospital Encounter ENDO [facility], Endoscopy Room [facility] [address] [place] [phone] Tate Dye MD [address] [place] [address] 04/28/2024 11:15 AM EDT - 04/28/2024 12:15 PM EDT Surgery ENDO [facility], Endoscopy Room [facility] [address] [place] [phone] Tate Dye MD [address] [place] [address] COLONOSCOPY FLEXIBLE PROXIMAL DIAGNOSTIC 05/07/2024 2:00 PM EDT Office Visit Audiology [facility] [address] [facility] [place] [address] Zonia Marvin Au.D. [address] [place] [address] 07/21/2024 3:00 PM EDT Office Visit Urology, [facility] [address] [facility] [place] [address] Arturo Ewing MD [address] [place] [address] Scheduled Procedures Name Priority Associated Diagnoses Date/Ti [...] D LEVEL ONCE IN A LIFETIME-USE SMARTSET# [id number] Completed 01/27/2023, 08/13/2022 Pneumococcal Vaccine: 65+ Years [...] Bipolar I disorder, most recent episode depressed (HCC)- Primary Bipolar I disorder, most recent episode (or current) depressed, unspecified EVANS (generalized anxiety disorder) Generalized anxiety disorder Panic disorder Panic disorder without agoraphobia Tardive dyskinesia Subacute dyskinesia due to drugs Adenomatous polyp of colon, unspecified part of colon Gastroesophageal reflux disease with esophagitis without hemorrhage documented in this encounter Care Teams Remote Mortgage Underwriter Relationship Specialty Start Date End Date January, Edu Camacho MD [address] [place] [address] PCP - General Family Medicine 07/30/22 documented as of this encounter
--- OUTSIDE RECORDS SUMMARY | 2024-04-21 01:31 | External Medical Summary | Summary of Care ---
Author Name Unknown Organization [facility] Address [address] [place] [address] Phone [phone] Care Team Providers Care Blocker Metal Base Name Role Phone Edu Torre MD Primary Care Provider [phone] Reason for Visit * Reason Comments pre-op exam Pt here today for a preop exam to have a crown placed on a tooth. Encounter Details Date Type Department Care Team (Late st Contact Info) Description 01/09/2024 12:40 PM EDT Office Visit [facility] [address] [place] [address] Puneet Peñaloza MD [address] [place] [address] Preop examination*; Recurrent UTI; Closed fracture of tooth, initial encounter; EVANS (generalized anxiety disorder); Bipolar I disorder, most recent episode depressed (HCC) Allergies Active Allergy Reactions Criticality Noted Date Comments Prochlorperazine 07/30/2022 Morphine And Related 07/30/2022 documented as of this encounter (statuses as of 01/09/2024) Medications Medication Sig Dispensed Refills Start Date [...] at bedtime. 90 Tablet 0 12/01/2023 Active HYDROcodone-Acetamino phen 5-325 MG Oral TabletIndications:Lum bar radiculopathy Take 1 Tablet by mouth every 6 hours as needed for severe pain 120 Tablet 0 12/15/2023 Active Omeprazole 40 MG Oral Capsule Delayed [...] at noon 180 Tablet 0 01/02/2024 Active documented as of this encounter (statuses as of 01/09/2024) Active Problems Problem Noted Date Diagnosed Date [...] as of this encounter (statuses as of 01/09/2024) Resolved Problems Problem Noted Date Diagnosed Date Resolved Date Bipolar disorder 07/30/2022 11/15/2022 Overview: More recent.specified code listed on PL documented as of this encounter (statuses as of 01/09/2024) Immunizations Name Administration Dates Next Due Pneumococcal Conjugate Vaccine, 20-valent (Prevn ar20) 04/22/2023 documented as of this encounter Social History Tobacco Use Types Packs/Day Years Used Date Smoking Tobacco: Never Passive Smoke Exposure: Past Smokeless Tobacco: Never Tobacco Cessation:Counseling Given: Not Answered Alcohol Use Standard Drinks/Week Comments Never 0 [...] on file documented as of this encounter Last Filed Vital Signs Vital Sign Reading Time Taken Comments Blood Pressure 122/60 01/09/2024 1:01 PM EDT Pulse 99 01/09/2024 1:01 PM EDT Temperature 37 C (98.6 F) 01/09/2024 1:01 PM EDT Respiratory Rate 16 01/09/2024 1:01 PM EDT Oxygen Saturation 98% 01/09/2024 1:01 PM EDT Inhaled Oxygen Concentration - - Weight 62.1 kg (137 lb) 01/09/2024 1:01 PM EDT Height - - Body Mass Index 23.52 10/07/2023 1:40 PM EST documented in this encounter Progress Notes * Puneet Peñaloza MD - 01/09/2024 1:10 PM EDT Subjective: Lulu Zhong is a 68 year old adult. Presents at the request of Dr Butcher for medical clearance for dental crown , one Dentist Dr. Vania Butcher [facility] [address], [address] [place] [address] Date of procedure 01/13/24 Pt has known memory loss, chronic , bipolar depression anxiety , f/ with psych, no recent med changes And denies any acute issue currently Hx of recurrent UTI, on macro by urology Denies associated chest discomfort, chest heaviness, chest pressure, chest tightness, edema, palpitations and shortness of breath. PHM: Patient Active Problem List Diagnosis Code Memory loss R41.3 Chronic bilateral low back pain with left-sided sciatica M54.42, G89.29 Migraine without aura and without status migrainosus, not intractable G43.009 Primary insomnia F51.01 Gastroesophageal reflux disease K21.9 Tardive dyskinesia G24.01 Mixed hyperlipidemia E78.2 Chronic, continuous use of opioids F11.90 Lumbar radiculopathy M54.16 Bipolar I disorder, most recent episode depressed (HCC) F31.30 Age-related osteoporosis without current pathological fracture M81.0 Recurrent UTI N39.0 Calculus of kidney N20.0 Urge incontinence N39.41 EVANS (generalized anxiety disorder) F41.1 Panic disorder F41.0 Current Outpatient Medications Medication Sig Dispense Refill Atorvastatin Calcium 40 MG Oral Tablet (Lipitor) Take 1 Tablet by mouth in the morning. Fiber 625 MG Oral Tablet Take by mouth. polyethylene glycol 3350 119 gram OR POWD Take 119 g by mouth once. AZO Cranberry 250-30 MG Oral Tablet Take by mouth. Topiramate 50 MG Oral Tablet (topAMAX) Take [...] Nausea. dissolve on tongue. 20 Tablet 0 traZODone HCl 100 MG Oral Tablet (Desyrel) Take 2 Tablets by mouth at bedtime. 180 Tablet 1 DULoxetine HCl 20 MG Oral Capsule Delayed Release Particles (Cymbalta) Take 1 Capsule by mouth every night at bedtime. With 30 mg capsule 90 Capsule 0 ARIPiprazole 10 MG Oral Tablet (Abilify) Take 1 Tablet by mouth every night at bedtime. 90 Tablet 0 HYDROcodone-Acetaminophen 5-325 MG Oral Tablet Take 1 Tablet by mouth every 6 hours as needed for severe pain 120 Tablet 0 Omeprazole 40 MG Oral Capsule Delayed Release (PriLOSEC) TAKE ONE CAPSULE BY MOUTH EVERY MORNING ONE HOUR BEFORE THE FIRST MEAL OF THE DAY. 100 Capsule 3 ARIPiprazole 2 MG Oral Tablet (Abilify) Take 1 Tablet by mouth every night at bedtime. 90 Tablet 0 clonazePAM 0.5 MG Oral Tablet (KlonoPIN) Take 1 Tablet by mouth in the morning and 1 Tablet in the evening. 60 Tablet 0 DULoxetine HCl 30 MG Oral Capsule Delayed Release Particles (Cymbalta) Take 1 Capsule by mouth in the morning and 1 Capsule before bedtime. 180 Capsule 0 Propranolol HCl 10 MG Oral Tablet (Inderal) Take one tablet by mouth in the morning and one tablet at noon 180 Tablet 0 Meloxicam 15 MG Oral Tablet Take 1 Tablet by mouth in the morning. (Patient not taking: Reported on06/23/2023) No current facility-administered medications for this visit. Past Medical History: Diagnosis Date Bipolar disorder (HCC) 07/30/2022 More recent.specified code listed on PL Cataract Hip pain Knee pain Migraines Tardive dyskinesia Past Surgical History: Procedure Laterality Date KNEE ARTHROSCOPY/SURGERY Right [place] APPENDECTOMY SHOULDER SURGERY PROCEDURE NEC Left 2022 dr napoles, [facility] SURGICAL PROCEDURE ONLY 11/25/[address] Mancia TOTAL ABD HYSTERECTOMY W/WO REMOVAL OF TUBE(S) age 49 Review of patient's allergies indicates: Allergen Reactions Compazine [Prochlorperazine] Morphine And Related Family History Problem Relation Age of Onset Depression Mother Alcohol and Other Disorders Associated Father Anxiety Disorder Daughter Depression Daughter Uterine cancer Daughter Addiction problem Daughter Suicide attempts Aunt (Maternal) Family Status Relation Status Mo (Not Specified) Fa (Not Specified) Aundrea Alive Aundrea Alive MAUNT Social History Tobacco Use Smoking status: Never Passive exposure: Past Smokeless tobacco: Never Substance Use Topics Alcohol use: Never Vaping/E-Cigarette Use Vaping/E-Cigarette Use Never User Vaping/E-Cigarette Substances Vaping/E-Cigarette Devices Review of Systems Constitutional: Positive for fatigue. Negative for activity change, appetite change, chills, diaphoresis, fever and unexpected weight change. HENT: Positive for dental problem (broken tooth). Respiratory: Negative for cough, chest tightness, shortness of breath and wheezing. Cardiovascular: Negative for chest pain, palpitations and leg swelling. Gastrointestinal: Negative for abdominal distention and abdominal pain. Neurological: Negative for dizziness, seizures and light-headedness. Psychiatric/Behavioral: Positive for dysphoric mood and sleep disturbance. Negative for agitation and behavioral problems. The patient is nervous/anxious. Dementia Objective: BP 122/60 | Pulse 99 | Temp 37 C (98.6 F) (Infrared ) | Resp 16 | Wt 62.1 kg (137 lb) | SpO2 98% | BMI 23.52 kg/m | BSA 1.67 m Physical Exam Constitutional: General: She is not in acute distress. Appearance: Normal appearance. She is not ill-appearing, toxic-appearing or diaphoretic. HENT: Head: Normocephalic and atraumatic. Nose: Nose normal. Eyes: Extraocular Movements: Extraocular movements intact. Cardiovascular: Rate and Rhythm: Normal rate and regular rhythm. Pulses: Normal pulses. Pulmonary: Effort: Pulmonary effort is normal. No respiratory distress. Breath sounds: Normal breath sounds. No stridor. No wheezing, rhonchi or rales. Chest: Chest wall: No tenderness. Musculoskeletal: Right lower leg: No edema. Left lower leg: No edema. Neurological: General: No focal deficit present. Mental Status: She is alert. ASSESSMENT: Diagnosis for procedure: broken tooth Preoperative Examination : not needed PLAN: Patient is medically cleared. Puneet Peñaloza MD documented in this encounter Nursing Notes * Kirsten Miranda LPN - 01/09/2024 12:55 PM EDT Chief Complaint Patient presents with pre-op exam Pt here today for a preop exam to have a crown placed on a tooth. documented in this encounter Plan of Treatment Upcoming Encounters Date Type Department Care Team (Late st Contact Info) Description 02/13/2024 1:00 PM EDT Telemedicine Psychiatry, [facility] [address] [facility] [place] [address] Yahaira Adams CRNP [address] [facility] [place] [address] 03/10/2024 3:00 PM EDT Office Visit [facility] [address] [place] [address] Edu Torre MD [address] [place] [address] 03/10/2024 4:20 PM EDT Telemedicine Neurology, [place] [facility] [address] [id number] Chung Santos MD [address] [place] [address] 04/28/2024 11:15 AM EDT Hospital Encounter [facility], Endoscopy Room [facility] [address] [place] [address] Tate Dye MD [address] [place] [address] 04/28/2024 11:15 AM EDT - 04/28/2024 12:15 PM EDT Surgery ENDO [facility], Endoscopy Room [facility] [address] [place] [address] Tate Dye MD [address] [place] [address] COLONOSCOPY FLEXIBLE PROXIMAL DIAGNOSTIC 05/07/2024 2:00 PM EDT Office Visit Audiology [facility] [address] [place] [address] Zonia Marvin Au.D. [address] [place] [address] 07/21/2024 3:00 PM EDT Office Visit Urology, [facility] [address] [place] [address] Arturo Ewing MD [address] [facility] [address] [place] [address] Scheduled Procedures Name Priority Associated Diagnoses Date/Ti [...] D LEVEL ONCE IN A LIFETIME-USE SMARTSET# [id number] Completed 01/27/2023, 08/13/2022 Pneumococcal Vaccine: 65+ Years [...] as of this encounter Visit Diagnoses Diagnosis Preop examination- Primary Preoperative examination, unspecified Recurrent UTI Urinary tract infection, site not specified Closed fracture of tooth, initial encounter EVANS (generalized anxiety disorder) Generalized anxiety disorder Bipolar I disorder, most recent episode depressed (HCC) Bipolar I disorder, most recent episode (or current) depressed, unspecified Adenomatous polyp of colon, unspecified part of colon Gastroesophageal reflux disease with esophagitis without hemorrhage documented in this encounter Care Teams Blocker Metal Base Relationship Specialty Start Date End Date January, Edu Camacho MD [address] [place] [address] PCP - General Family Medicine 07/30/22 documented as of this encounter"
--- OUTSIDE RECORDS SUMMARY | 2024-04-21 01:31 | External Medical Summary | Summary of Care ---
Author Name Unknown Organization [facility] Address [address] [place] [address] Phone [phone] Care Team Providers Care Product Finisher Name Role Phone Edu Torre MD Primary Care Provider [phone] Reason for Visit * Reason Onset Date Comments Health Maintenance 02/02/2024 Encounter Details Date Type Department Care Team (Late st Contact Info) Description 02/02/2024 Telephone [facility] [address] [place] [address] Edu Torre MD [address] [place] [address] Health Maintenance Allergies Active Allergy Reactions Criticality Noted Date Comments Prochlorperazine 07/30/2022 Morphine And Related 07/30/2022 documented as of this encounter (statuses as of 02/02/2024) Medications Medication Sig Dispensed Refills Start Date [...] as of this encounter (statuses as of 02/02/2024) Active Problems Problem Noted Date Diagnosed Date [...] as of this encounter (statuses as of 02/02/2024) Resolved Problems Problem Noted Date Diagnosed Date Resolved Date Bipolar disorder 07/30/2022 11/15/2022 Overview: More recent.specified code listed on PL documented as of this encounter (statuses as of 02/02/2024) Immunizations Name Administration Dates Next Due Pneumococcal [...] Telephone Encounter - Alba Knox LPN - 02/02/2024 3:03 PM EDT Care Gaps Comprehensive Care Outreach Last Office/Telemedicine Visit: 01/14/2024 (in office), 08/27/2022 (telemedicine) Next Office Visit: 03/10/2024 Hemoglobin AIC Results: Lab Results Component Value Date/Time HEMOGLOBIN A1C - [facility] 5.6 08/13/2022 11:56 AM BP Readings from Last 1 Encounters: 01/14/24 118/62 Reviewed Health Maintenance below: Health Maintenance Topic Date Due COVID-19 Vaccine ( season) 2023 Colorectal Cancer Screening 08/29/2023 Depression, Most Recent Score >= 10 (will fire each visit until score < 10) 01/10/2024 Mammogram 02/15/2024 Mamm february 14 Colon already scheduled Care Gap Outreach Action Taken: Spoke to patients daughter will call back documented in this encounter Plan of Treatment Upcoming Encounters Date Type Department Care Team (Late st Contact Info) Description 02/13/2024 1:00 PM EDT Telemedicine Psychiatry, [facility] [address] [facility] [place] [address] AdamsYahaira CRNP [address] [facility] [place] [address] 03/10/2024 3:00 PM EDT Office Visit [facility] [address] [place] [address] JanuaryEdu MD [address] [place] [address] 03/10/2024 4:20 PM EDT Telemedicine Neurology, [place] [facility] [address] [place] [address] Chung Santos MD [address] [place] [address] 04/28/2024 11:15 AM EDT Hospital Encounter ENDO [facility], Endoscopy Room [facility] [address] [place] [phone] Tate Dye MD [address] [place] [address] 04/28/2024 11:15 AM EDT - 04/28/2024 12:15 PM EDT Surgery ENDO [facility], Endoscopy Room [facility] [address] [place] [phone] Tate Dye MD [address] [place] [address] COLONOSCOPY FLEXIBLE PROXIMAL DIAGNOSTIC 05/07/2024 2:00 PM EDT Office Visit Audiology [facility] [address] [place] [address] Zonia Marvin Au.D. [address] [place] [address] 07/21/2024 3:00 PM EDT Office Visit Urology, [facility] [address] [facility] [place] [address] Arturo Ewing MD [address] [place] [address] [place] [address] Scheduled Procedures Name Priority Associated Diagnoses Date/Ti [...] D LEVEL ONCE IN A LIFETIME-USE SMARTSET# [id number] Completed 01/27/2023, 08/13/2022 Pneumococcal Vaccine: 65+ Years [...] filedocumented as of this encounter Care Teams Product Finisher Relationship Specialty Start Date End Date January, Edu Camacho MD [address] [place] [address] PCP - General Family Medicine 07/30/22 documented as of this encounter
--- OUTSIDE RECORDS SUMMARY | 2024-04-21 01:31 | External Medical Summary | Summary of Care ---
Author Name Unknown Organization [facility] Address [address] [place] [address] Phone [phone] Care Team Providers Care School Business Administrator Name Role Phone Andrés Nguyen MD Primary Care Provider [phone] Reason for Visit * Reason Comments Medication Refill Encounter Details Date Type Department Care Team (Late st Contact Info) Description 01/15/2024 Refill [facility] [address] [place] [address] Andrés Nguyen MD [address], [place] [phone] Lumbar radiculopathy Allergies Active Allergy Reactions Criticality Noted Date Comments Prochlorperazine 07/30/2022 Morphine And Related 07/30/2022 documented as of this encounter (statuses as of 01/16/2024) Medications Medication Sig Dispensed Refills Start Date [...] 11/07/2023 Active ARIPiprazole 10 MG Oral Tablet (Abilify)Indications [...] DAY. 100 Capsule 3 01/03/2024 5 Active ARIPiprazole 2 MG Oral Tablet (Abilify)Indications [...] at noon 180 Tablet 0 01/02/2024 Active HYDROcodone-Acetamin ophen 5-325 MG Oral TabletIndications:Dorinda mbar radiculopathy Take 1 Tablet by mouth every 6 hours as needed for severe pain 120 Tablet 0 01/16/2024 Active HYDROcodone-Acetamin ophen 5-325 MG Oral TabletIndications:Dorinda mbar radiculopathy Take 1 Tablet by mouth every 6 hours as needed for severe pain 120 Tablet 0 12/15/2023 4 Discontinu ed(Refill) documented as of this encounter (statuses as of 01/16/2024) Active Problems Problem Noted Date Diagnosed Date [...] as of this encounter (statuses as of 01/16/2024) Resolved Problems Problem Noted Date Diagnosed Date Resolved Date Bipolar disorder 07/30/2022 11/15/2022 Overview: More recent.specified code listed on PL documented as of this encounter (statuses as of 01/16/2024) Immunizations Name Administration Dates Next Due Pneumococcal [...] Telephone Encounter - Andrés Nguyen MD - 01/16/2024 1:57 PM EDTSigned Prescriptions: Disp Refills HYDROcodone-Acetaminophen 5-325 MG Oral Ta*120 Ta*0 Sig: Take 1 Tablet by mouth every 6 hours as needed for severe pain Authorizing Provider: ANDRÉS NGUYEN * Telephone Encounter - Abby Murguia [facility] - 01/16/2024 1:39 PM EDT Pending Prescriptions: Disp Refills HYDROcodone-Acetaminophen 5-325 MG Oral Ta*120 Ta*0 Sig: Take 1 Tablet by mouth every 6 hours as needed for severe pain * Telephone Encounter - Abby Murguia [facility] - 01/16/2024 1:39 PM EDT I have reviewed the patients controlled substance dispensing history in the Prescription Drug Monitoring Program in compliance with the [facility] regulations before prescribing a controlled substance. PDMP checked on 01/16/2024. Pending Prescriptions: Disp Refills HYDROcodone-Acetaminophen 5-325 MG Oral T*120 Ta*0 Sig: Take 1 Tablet by mouth every 6 hours as needed for severe pain Last Visit: 01/14/2024 (in office), 08/27/2022 (telemedicine) Next Visit: 03/10/2024 Date medication was last filled: 12/15 Date medication is due for refill: 01/13 Pharmacy: [facility] Is this request for a controlled substance? Yes and Urine Drug Screen Not completed Toxicology results: Results for orders placed or performed in visit on 09/06/22 PAIN MANAGEMENT DRUG PANEL, URINE W/ INTERPRETATION Result Value Compliance Interpretation Based on the medication information provided and from [facility]: Please note hydrocodone and hydrocodone metabolite, [...] upon request. Please approve if appropriate. Thank you, Abby Murguia, PharmD. Clinical Pharmacist [facility] ([facility]) (formerly Telepharmacy) 01/16/2024, 1:39 PM documented in this encounter Plan of Treatment Upcoming Encounters Date Type Department Care Team (Late st Contact Info) Description 01/19/2024 2:00 PM EDT Laboratory Laboratory, [address] [phone] [address] [address] 02/13/2024 1:00 PM EDT Telemedicine Psychiatry, [facility] [address] [facility], [place] [address] Yahaira Adams CRNP [address] [facility], [place] [address] 03/10/2024 3:00 PM EDT Office Visit [facility], [address] [phone] Andrés [facility] [address] [facility] [address] 03/10/2024 4:20 PM EDT Telemedicine Neurology, [place] [facility] [address] [place] [address] Chung Santos MD [address] [place] [address] 04/28/2024 11:15 AM EDT Hospital Encounter ENDO [facility]SS, Endoscopy Room [facility] [address] [place] [phone] Tate Dye MD [address] [place] [address] 04/28/2024 11:15 AM EDT - 04/28/2024 12:15 PM EDT Surgery ENDO [facility], Endoscopy Room [facility] [address] [place] [address] Tate Dye MD [address] [place] [address] COLONOSCOPY FLEXIBLE PROXIMAL DIAGNOSTIC 05/07/2024 2:00 PM EDT Office Visit Audiology [facility] [address] [place] [address] Zonia Marvin Au.D. [address] [place] [address] 07/21/2024 3:00 PM EDT Office Visit Urology, [facility] [address] [place] [address] Arturo Ewing MD [address] [place] [address] [place] [address] Scheduled Procedures Name Priority Associated Diagnoses Date/Ti [...] D LEVEL ONCE IN A LIFETIME-USE SMARTSET# [id number] Completed 01/27/2023, 08/13/2022 Pneumococcal Vaccine: 65+ Years [...] hemorrhage documented in this encounter Care Teams School Business Administrator Relationship Specialty Start Date End Date January, Andrés Camacho MD [address], [place] [phone] PCP - General Family Medicine 07/30/22 documented as of this encounter
--- OUTSIDE RECORDS SUMMARY | 2024-04-21 01:31 | External Medical Summary | Summary of Care ---
Author Name Unknown Organization [facility] Address [address] [place] [address] Phone [phone] Care Team Providers Care Car Runner Name Role Phone Edu Torre MD Primary Care Provider Reason for Referral * Evaluate & Treat - Unlimited Visits (Within 10 days (routine)) - Authorized Specialty Diagnoses / Procedures Referred By Cullen mendoza Referred To Contact Podiatry Diagnoses Deformity of toenail Lizy Faulkner DO [address] [place] [address] Shawanda Vaz, MICHAEL [address] [address] Referral ID Status Reason Start Date Expiration Date Visits Requested Visits Authorized [id number] Authorized Specialty Services Required 01/14/2024 999 999 Question Answer Referral Priority Within 10 days (routine) Where should this appointment be scheduled? [facility] Which condition are you referring this patient for? General Podiatry/Other Reason for Visit * Reason Comments Acute Patient is here due to right shoulder pain from fallingPatient fell the night of the Patient states she fell about four steps Paient has been putting ice on her shoulder and take pain medicine to ease the pain Patient hit her left foot on the end of her bed two months ago the bruise has not gone awayPatient states she pees every 5 minutes Encounter Details Date Type Department Care Team (Late st Contact Info) Description 01/14/2024 12:50 PM EDT Office Visit [facility] [address] [place] [facility] [address] Lizy Faulkner, DO [address] [facility], [place] [id number] Fall, initial encounter*; Acute pain of right shoulder; Rib pain on right side; Deformity of toenail; Acute cystitis without hematuria; Left foot pain Allergies Active Allergy Reactions Criticality Noted Date Comments Prochlorperazine 07/30/2022 Morphine And Related 07/30/2022 documented as of this encounter (statuses as of 01/14/2024) Medications Medication Sig Dispensed Refills Start Date [...] as of this encounter (statuses as of 01/14/2024) Active Problems Problem Noted Date Diagnosed Date [...] as of this encounter (statuses as of 01/14/2024) Resolved Problems Problem Noted Date Diagnosed Date Resolved Date Bipolar disorder 07/30/2022 11/15/2022 Overview: More recent.specified code listed on PL documented as of this encounter (statuses as of 01/14/2024) Immunizations Name Administration Dates Next Due Pneumococcal [...] Sign Reading Time Taken Comments Blood Pressure 118/62 01/14/2024 1:05 PM EDT Pulse 90 01/14/2024 1:05 PM EDT Temperature 36.3 C (97.3 F) 01/14/2024 1:05 PM ED T Respiratory Rate 16 01/14/2024 1:05 PM EDT Oxygen Saturation 98% 01/14/2024 1:05 PM EDT Inhaled Oxygen Concentration - - Weight 62.7 kg (138 lb 4.8 oz) 01/14/2024 1:05 P M EDT Height - - Body Mass Index 23.74 10/07/2023 1:40 PM EST documented in this encounter Progress Notes * Lizy Faulkner, - 01/14/2024 1:16 PM EDT Subjective: Lulu Zhong is a 68 year old adult. Chief Complaint Patient presents with Acute Patient is here due to right shoulder pain from falling Patient fell the night of the Patient states she fell about four steps Paient has been putting ice on her shoulder and take pain medicine to ease the pain Patient hit her left foot on the end of her bed two months ago the bruise has not gone away Patient states she pees every 5 minutes HPI: 68 year old female here today for a fall about 3 days ago, and landed on the R shoulder on thepole of the steps. And she has limited ROM of the R arm. Presents with her daughter. Suffered a fall 1 year ago and tore the L shoulder and needed surgery. Medications reviewed. Hit her L foot on thebed post about 1 month ago and still sore to walk on and bruised/ + toenail fungus and thickened toenails and wishes to see podiatry for nail trimming. + urine frequency. She is icing the R upper back area. PHM: Patient Active Problem List Diagnosis Code [...] Current Outpatient Medications Medication Sig Dispense Refill polyethylene glycol 3350 119 gram OR POWD [...] one tablet at noon 180 Tablet 0 Atorvastatin Calcium 40 MG Oral Tablet (Lipitor) Take 1 Tablet by mouth in the morning. Fiber 625 MG Oral Tablet Take by mouth. Meloxicam 15 MG Oral Tablet Take 1 Tablet by mouth in the morning. No current facility-administered medications for this visit. Review of patient's allergies indicates: Allergen Reactions Compazine [Prochlorperazine] Morphine And Related Objective: BP 118/62 | Pulse 90 | Temp 36.3 C (97.3 F) (Temporal Artery) | Resp 16 | Wt 62.7 kg (138 lb 4.8 oz) | SpO2 98% | BMI 23.74 kg/m | BSA 1.68 m Physical Exam: General: alert, healthy, and no distress Large bruise on the R shoulder blade area to the 12th rib area, and swelling. Heart: regular rate & rhythm, no murmur, and no gallops Lungs: chest symmetric with normal AP diameter, no chest deformities noted, no chest wall tenderness, lungs clear to auscultation Extremities: discoloration on the L foot, on the top of her foot no swelling Limited ROM of the R shoulder due to pain. ASSESSMENT/PLAN: Fall, initial encounter (Primary) - XR SHOULDER, 2 OR MORE VIEWS Acute pain of right shoulder - XR RIBS UNILATERAL W/PA CHEST MINIMUM 3 VIEWS - XR SHOULDER, 2 OR MORE VIEWS Rib pain on right side - XR RIBS UNILATERAL W/PA CHEST MINIMUM 3 VIEWS - XR SHOULDER, 2 OR MORE VIEWS Deformity of toenail - PODIATRY REFERRAL OP Acute cystitis without hematuria - URINALYSIS, POINT OF CARE (ENTER/EDIT) - CULTURE, URINE, QUANTITATIVE Left foot pain - XR FOOT 3 OR MORE VIEWS Lizy Faulkner DO documented in this encounter Nursing Notes * Lamberto Lovell Student - 01/14/2024 1:05 PM EDT The patient has been properly identified by confirmation of name and date of . Chief Complaint Patient presents with Acute Patient is here due to right shoulder pain from falling Patient fell the night of the Patient states she fell about four steps Paient has been putting ice on her shoulder and take pain medicine to ease the pain documented in this encounter Plan of Treatment Upcoming Encounters Date Type Department Care Team (Late st Contact Info) Description 02/13/2024 1:00 PM EDT Telemedicine Psychiatry, [facility] [address] [facility] [place] [address] [place], DEWAYNE Ruiz [address] [facility] [place] [address] 03/10/2024 3:00 PM EDT Office Visit [facility] [address] [place] [address] January, Edu Camacho MD [address] [place] [address] 03/10/2024 4:20 PM EDT Telemedicine Neurology, [place] [facility] [address] [place] [address] Chung Santos MD [address] [place] [address] 04/28/2024 11:15 AM EDT Hospital Encounter ENDO [facility], Endoscopy Room [facility] [address] [place] [address] Tate Dye MD [address] [place] [address] 04/28/2024 11:15 AM EDT - 04/28/2024 12:15 PM EDT Surgery ENDO [facility], Endoscopy Room [facility] [address] [place] [address] Tate Dye MD [address] [place] [address] COLONOSCOPY FLEXIBLE PROXIMAL DIAGNOSTIC 05/07/2024 2:00 PM EDT Office Visit Audiology [facility] [address] [place] [address] Zonia Marvin Au.D. [address] [place] [address] 07/21/2024 3:00 PM EDT Office Visit Urology, [facility] [address] [place] [address] Arturo Ewing MD [address] [facility] [address] [place] [address] Scheduled Orders Name Type Priority Associated Diagnoses Orde r Schedule XR RIBS UNILATERAL W/PA CHEST MINIMUM 3 VIEWS Medical Imaging STAT Acute pain of right shoulder Rib pain on right side Ordered: 01/14/2024 XR SHOULDER, 2 OR MORE VIEWS Medical Imaging STAT Fall, initial encounter Acute pain of right shoulder Rib pain on right side Ordered: 01/14/2024 CULTURE, URINE, QUANTITATIVE Lab Routine Acute cystitis without hematuria Ordered: 01/14/2024 XR FOOT 3 OR MORE VIEWS Medical Imaging Routine Left foot pain Ordered: 01/14/2024 Scheduled Procedures Name Priority Associated Diagnoses Date/Ti me COLONOSCOPY FLEXIBLE PROXIMA L DIAGNOSTIC Adenomatous polyp of colon, unspecified part of colon Gastroesophageal reflux disease with esophagitis without hemorrhage 04/28/2024 11:15 AM EDT ESOPHAGOGASTRODUODENOSCOPY ( EGD), FLEXIBLE, TRANSORAL, DIAGNOSTIC Adenomatous polyp of colon, unspecified part of colon Gastroesophageal reflux disease with esophagitis without hemorrhage 04/28/2024 11:15 AM EDT Scheduled Referrals Name Type Priority Associated Diagnoses Orde r Schedule PODIATRY REFERRAL OP Referral Within 10 days (routine) Deformity of toenail Ordered: 01/14/2024 Health Maintenance Due Date Last Done Comments [...] D LEVEL ONCE IN A LIFETIME-USE SMARTSET# [id number] Completed 01/27/2023, 08/13/2022 Pneumococcal Vaccine: 65+ Years [...] Not on filedocumented as of this encounter Procedures Procedure Name Priority Date/Time Associated Diagnosis Comments URINALYSIS, POINT OF CARE (ENTER/EDIT) Routine 01/14/2024 Acute cystitis without hematuria documented in this encounter Results * (ABNORMAL) URINALYSIS, POINT OF CARE (ENTER/EDIT) (01/14/2024) Color, Urine Dark Yellow(A) Yellow or Light Yellow Clarity, Urine Cloudy(A) Clear Glucose, Urine Negative Negative mg/dL Bilirubin, Urine Small(A) Negative Ketone, Urine Trace(A) Negative mg/dL Specific [place], Urine 1.030 1.003 - 1.030 Blood, Urine Negative Negative pH, Urine 5.0 5.0 - 7.5 units Protein, Urine Trace(A) Negative mg/dL Urobilinogen, Urine 1.0 0.2 - 1.0 mg/dL Nitrite, Urine Negative Negative Esterase, Urine Negative Negative Urine 01/14/2024 Lizy Faulkner DO LAB POINT OF CARE TE ST ENTER/EDIT ORDERABLES documented in this encounter Visit Diagnoses Diagnosis Fall, initial encounter- Primary Acute pain of right shoulder Rib pain on right side Chest pain, unspecified Deformity of toenail Unspecified disease of nail Acute cystitis without hematuria Acute cystitis Left foot pain Pain in limb Adenomatous polyp of colon, unspecified part of colon Gastroesophageal reflux disease with esophagitis without hemorrhage documented in this encounter Care Teams Car Runner Relationship Specialty Start Date End Date January, Edu Camacho MD [address] [place] [address] PCP - General Family Medicine 07/30/22 documented as of this encounter"
--- OUTSIDE RECORDS SUMMARY | 2024-04-21 01:31 | External Medical Summary | Summary of Care ---
Author Name Unknown Organization [facility] Address [address] [place] [address] Phone [phone] Care Team Providers Care Sports Athletic Trainer Name Role Phone JanuaryEdu MD Primary Care Provider [phone] Reason for Visit * Reason Onset Date Comments FYI 01/09/2024 Encounter Details Date Type Department Care Team (Late st Contact Info) Description 01/09/[address] [facility] [address] [place] [address] Edu Torre MD [address] [place] [address] FY Allergies Active Allergy Reactions Criticality Noted Date [...] encounter Miscellaneous Notes * Telephone Encounter - Puneet Peñaloza MD - 01/09/2024 2:01 PM EDT Please fax my note to dentist * Telephone Encounter - Tori Weir OSA - 01/09/2024 1:33 PM EDT Dentist [facility] [place] [address] [address] [facility], [address] [place] [address] Date of procedure 01/13/24 1 [place]. documented in this encounter Plan of Treatment Upcoming Encounters Date Type Department Care Team (Late st Contact Info) Description 02/13/2024 1:00 PM EDT Telemedicine Psychiatry, [facility] [place] [address] Adams, DEWAYNE Ruiz 200 [facility] [place] [address] 03/10/2024 3:00 PM EDT Office Visit [facility] [address] [place] [address] JanuaryEdu MD [address] [place] [address] 03/10/2024 4:20 PM EDT Telemedicine Neurology, [place] [facility] [address] [place] [id number] Chung Santos MD [address] [place] [address] 04/28/2024 11:15 AM EDT Hospital Encounter ENDO [facility], Endoscopy Room [facility] [address] [place] [phone] Tate Dye MD [address] [place] [address] 04/28/2024 11:15 AM EDT - 04/28/2024 12:15 PM EDT Surgery ENDO [facility], Endoscopy Room [facility] [address] [place] [phone] Tate Dye MD [address] [place] [address] COLONOSCOPY FLEXIBLE PROXIMAL DIAGNOSTIC 05/07/2024 2:00 PM EDT Office Visit Audiology [facility] [address] [place] [address] Zonia Marvin Au.D. [address] [place] [address] 07/21/2024 3:00 PM EDT Office Visit [facility] [place] [address] Arturo Ewing MD [address] [place] [address] [place] [address] Scheduled Procedures Name Priority Associated Diagnoses Date/Ti [...] D LEVEL ONCE IN A LIFETIME-USE SMARTSET# [id number] Completed 01/27/2023, 08/13/2022 Pneumococcal Vaccine: 65+ Years [...] filedocumented as of this encounter Care Teams Sports Athletic Trainer Relationship Specialty Start Date End Date January, Edu Camacho MD [address] [place] [address] PCP - General Family Medicine 07/30/22 documented as of this encounter
--- OUTSIDE RECORDS SUMMARY | 2024-04-21 01:31 | External Medical Summary | Summary of Care ---
Author Name Unknown Organization [facility] Address [address] [place] [address] Phone [phone] Care Team Providers Care Exercise Specialist Name Role Phone Edu Torre MD Primary Care Provider [phone] Reason for Visit * Reason Onset Date Comments Test Results 01/16/2024 Urinalysis Encounter Details Date Type Department Care Team (Late st Contact Info) Description 01/16/2024 Telephone [facility] [address] [place] [address] Edu Torre MD [address] [place] [address] Test Results (Urinalysis) Allergies Active Allergy Reactions Criticality Noted Date [...] encounter Miscellaneous Notes * Telephone Encounter - Shea Jackson LPN - 01/16/2024 2:42 PM EDT Pt was informed in another encounter that urine was Negative. * Telephone Encounter - Doug Conroy OSA - 01/16/2024 2:23 PM EDT Who is Requesting Test Results: Patient Primary Care Provider : Edu Torre MD Tests Results Requested : Urinalysis Date of Test : 01/14/24 Location of Test: [facility] Ordering Provider: Lizy Ferrara DO Patient has been made aware that the turnaround time for test results are typically as follows: Laboratory results = within 2-3 days ([facility]), 3-5 days (Non-[facility], ie. [facility]) Urine Cultures = within 2-3 days depending on growth within the culture Pathology results (biopsy results/PAP) = 1-2 weeks Radiology results = about 1 week Cologuard results = within 2 weeks from the shipment date COVID testing = about 24 hours documented in this encounter Plan of Treatment Upcoming Encounters Date Type Department Care Team (Late st Contact Info) Description 01/19/2024 2:00 PM EDT Laboratory Laboratory, [address] [place] [id number] [facility] [address] [place] [address] 02/13/2024 1:00 PM EDT Telemedicine Psychiatry, [facility] 200 [facility] [place] [address] Yahaira Adams CRNP 200 [facility] [place] [address] 03/10/2024 3:00 PM EDT Office Visit Family [facility] [address] [place] [phone] Edu Torre MD [address] [place] [address] 03/10/2024 4:20 PM EDT Telemedicine Neurology, [place] [facility] [address] [place] [address] Chung Santos MD [address] [place] [address] 04/28/2024 11:15 AM EDT Hospital Encounter ENDO [facility], Endoscopy Room [facility] [address] [place] [phone] Tate Dye MD [address] [place] [address] 04/28/2024 11:15 AM EDT - 04/28/2024 12:15 PM EDT Surgery ENDO [facility], Endoscopy Room [facility] [address] [place] [address] Tate Dye MD [address] [place] [address] COLONOSCOPY FLEXIBLE PROXIMAL DIAGNOSTIC 05/07/2024 2:00 PM EDT Office Visit Audiology [facility] [address] [place] [address] Zonia Marvin Au.D. [address] [place] [address] 07/21/2024 3:00 PM EDT Office Visit Urology, [facility] [address] [place] [address] Arturo Ewing MD [address] [facility] [address] [place] [address] Scheduled Procedures Name Priority Associated Diagnoses Date/Ti [...] D LEVEL ONCE IN A LIFETIME-USE SMARTSET# [id number] Completed 01/27/2023, 08/13/2022 Pneumococcal Vaccine: 65+ Years [...] filedocumented as of this encounter Care Teams Exercise Specialist Relationship Specialty Start Date End Date January, Edu Camacho MD [address] [place] [address] PCP - General Family Medicine 07/30/22 documented as of this encounter
--- OUTSIDE RECORDS SUMMARY | 2024-04-21 01:31 | External Medical Summary | Summary of Care ---
Author Name Unknown Organization [facility] Address [address] [place] [address] Phone [phone] Care Team Providers Care Circuit Tester Name Role Phone Edu Torre MD Primary Care Provider [phone] Reason for Visit * Reason Onset Date Comments Appointment 01/21/2024 Encounter Details Date Type Department Care Team (Late st Contact Info) Description 01/21/2024 Telephone [facility] [address] [place] [address] Edu Torre MD [address] [place] [address] Appointment Allergies Active Allergy Reactions [...] encounter Miscellaneous Notes * Telephone Encounter - Collins Oh OSA - 01/23/2024 11:15 AM EDT Pt aware. Not interesting in scheduling at this time. Thank you * Telephone Encounter - Beverley Goodman OSA - 01/23/2024 9:50 AM EDT LMOM. If nothing in [place], patient can be scheduled in surrounding locations. [...] Description 02/13/2024 1:00 PM EDT Telemedicine Psychiatry, [facility] 200 [facility] [place] [address] Yahaira Adams CRNP 200 [facility] [place] [address] 03/10/2024 3:00 PM EDT Office Visit [facility] [address] [place] [phone] Edu Torre MD [address] [place] [address] 03/10/2024 4:20 PM EDT Telemedicine Neurology, [place] [facility] [address] [place] [address] Chung Santos MD [address] [place] [address] 04/28/2024 11:15 AM EDT Hospital Encounter ENDO [facility], Endoscopy Room [facility] [address] [place] [phone] Tate Dye MD [address] [place] [address] 04/28/2024 11:15 AM EDT - 04/28/2024 12:15 PM EDT Surgery ENDO [facility], Endoscopy Room [facility] [address] [place] [phone] Tate Dye MD [address] [place] [address] COLONOSCOPY FLEXIBLE PROXIMAL DIAGNOSTIC 05/07/2024 2:00 PM EDT Office Visit Audiology [facility] [address] [place] [address] Zonia Marvin Au.D. [address] [place] [address] 07/21/2024 3:00 PM EDT Office Visit Urology, [facility] [address] [place] [address] Arturo Ewing MD [address] [place] [address] [place] [address] Scheduled Procedures Name Priority Associated Diagnoses Date/Ti [...] 1998 Colonoscopy 1998 Sigmoidoscopy 1998 COVID-19 Vaccine (2022-10 4 season) 2023 11/20/2020, 10/23/2020 Colorectal Cancer Screening 08/29/2023 Fecal Occult Blood Test 08/29/2023 08/29/20 22, 08/29/2022 Depression, Most Recent Scor e >= 10 (will fire each visit until score < 10) 01/10/2024 01/09/2024 Mammogram 02/15/2024 02/14/2023, 02/14/2023 Influenza Vaccine (FLU shot) (Season Ended) 2024 DXA Scan 01/27/2025 01/27/2023 Lipid Panel 08/13/2027 08/13/2022 VITAMIN D LEVEL ONCE IN A LIFETIME-USE SMARTSET# [id number] Completed 01/27/2023, 08/13/2022 Pneumococcal Vaccine: 65+ Years [...] filedocumented as of this encounter Care Teams Circuit Tester Relationship Specialty Start Date End Date January, Edu Camacho MD [address] [place] [address] PCP - General Family Medicine 07/30/22 documented as of this encounter
--- OUTSIDE RECORDS SUMMARY | 2024-04-21 01:31 | External Medical Summary | Summary of Care ---
Author Name Unknown Organization [facility] Address [address] [place] [address] Phone [phone] Care Team Providers Care Process Equipment Operator Name Role Phone JanuaryEdu MD Primary Care Provider [phone] Reason for Visit * Reason Onset Date Comments FYI 01/09/2024 Encounter Details Date Type Department Care Team (Late st Contact Info) Description 01/09/2024 Telephone [facility] [address] [place] [address] Edu Torre MD [address] [place] [address] FY Allergies Active Allergy Reactions Criticality Noted Date Comments Prochlorperazine 07/30/2022 Morphine And Related 07/30/2022 documented as of this encounter (statuses as of 01/10/2024) Medications Medication Sig Dispensed Refills Start Date [...] as of this encounter (statuses as of 01/10/2024) Active Problems Problem Noted Date Diagnosed Date [...] as of this encounter (statuses as of 01/10/2024) Resolved Problems Problem Noted Date Diagnosed Date Resolved Date Bipolar disorder 07/30/2022 11/15/2022 Overview: More recent.specified code listed on PL documented as of this encounter (statuses as of 01/10/2024) Immunizations Name Administration Dates Next Due Pneumococcal [...] encounter Miscellaneous Notes * Telephone Encounter - Kirsten Miranda LPN - 01/10/2024 2:31 PM EDT OV notes were faxed to Dentist Dr. Vania Butcher office at [phone] * Telephone Encounter - Puneet Peñaloza MD - 01/09/2024 2:01 PM EDT Please fax my note to dentist * Telephone Encounter - Tori Weir OSA - 01/09/2024 1:[address] Vania Butcher [facility] [address], [address] [place] [address] Date of procedure 01/13/24 1 [place]. documented in this encounter Plan of Treatment Upcoming Encounters Date Type Department Care Team (Late st Contact Info) Description 02/13/2024 1:00 PM EDT Telemedicine Psychiatry, [facility] 200 [facility] [place] [address] Yahaira [place] CRNP [address] [place] [address] 03/10/2024 3:00 PM EDT Office Visit [facility] [address] [place] [address] Edu Torre MD [address] [place] [address] 03/10/2024 4:20 PM EDT Telemedicine Neurology, [place] [facility] [address] [place] [address] Chung Santos MD [address] [place] [address] 04/28/2024 11:15 AM EDT Hospital Encounter ENDO [facility], Endoscopy Room [facility] [address] [place] [phone] Tate Dye MD [address] [place] [address] 04/28/2024 11:15 AM EDT - 04/28/2024 12:15 PM EDT Surgery [facility]O [facility], Endoscopy Room [facility] [address] [place] [phone] Tate Dye MD [address] [place] [address] COLONOSCOPY FLEXIBLE PROXIMAL DIAGNOSTIC 05/07/2024 2:00 PM EDT Office Visit Audiology [facility] 132 [facility] [place] [address] Zonia Marvin Au.D. [address] [place] [address] 07/21/2024 3:00 PM EDT Office Visit Urology, [facility] 132 [facility] [place] [address] Arturo Ewing MD [address] [place] [address] [place] [id number] Scheduled Procedures Name Priority Associated Diagnoses Date/Ti [...] D LEVEL ONCE IN A LIFETIME-USE SMARTSET# [id number] Completed 01/27/2023, 08/13/2022 Pneumococcal Vaccine: 65+ Years [...] filedocumented as of this encounter Care Teams Process Equipment Operator Relationship Specialty Start Date End Date January, Edu Camacho MD [address] [place] [address] PCP - General Family Medicine 07/30/22 documented as of this encounter
--- OUTSIDE RECORDS SUMMARY | 2024-04-21 01:31 | External Medical Summary ---
Author Name Unknown Address Unknown Organization K01:LABORATORY [facility] [place] - [address] [place] [id number] Laboratory Report Ordering Provider Test Date Status KAREN HERNANDEZKRISTIN 01/14/2024 13:32:54 Final Observation Date Value Abnormality Reference (Units) Status Bacteria identified in Specimen by Culture 01/14/2024 13:32:54 No significant growth Final Test: Culture, Urine, Quanti tative
Specimen Source: Urine, Clean Catch
Specimen Type: Urine
Specimen Date: 01/14/2024 1:32 PM
Result Date: 01/15/2024 3:27 PM
Result Status: Final result
Resulting Lab: [facility]
[address]
[facility] [address]

CULTURE

No significant growth

null Performing Location LABORATORY [facility] - [address] [facility] [address]
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
--- OUTSIDE RECORDS SUMMARY | 2024-04-21 01:32 | External Medical Summary | Summary of Care ---
Author Name Unknown Organization [facility] Address [address] [place] [address] Phone [phone] Care Team Providers Care Supervisor Labor Gang Name Role Phone Edu Torre MD Primary Care Provider [phone] Reason for Visit * Reason Onset Date Comments Appointment 12/24/2023 Encounter Details Date Type Department Care Team (Late st Contact Info) Description 12/24/2023 Telephone [facility] [address] [place] [address] Edu Torre MD [address] [place] [address] Appointment Allergies Active Allergy Reactions Criticality Noted Date Comments Prochlorperazine 07/30/2022 Morphine And Related 07/30/2022 documented as of this encounter (statuses as of 12/24/2023) Medications Medication Sig Dispensed Refills Start Date [...] on tongue. 20 Tablet 0 09/12/2023 Active ARIPiprazole 2 MG Oral Tablet (Abilify)Indications: Bipolar I disorder, most recent episode depressed (HCC) Take 1 Tablet by mouth every night at bedtime With 10 mg tablet 90 Tablet 0 09/30/2023 Active DULoxetine HCl 30 MG Oral Capsule Delayed Release Particles (Cymbalta)Indications :EVANS (generalized anxiety disorder),Panic disorder Take 1 Capsule by mouth in the morning and 1 Capsule before bedtime. 180 Capsule 0 09/30/2023 Active clonazePAM 0.5 MG Oral Tablet (KlonoPIN)Indications :Bipolar I disorder, most recent episode depressed (HCC) Take 1 Tablet by mouth in the morning and 1 Tablet in the evening. 60 Tablet 0 11/07/2023 Active Propranolol HCl 10 MG Oral Tablet (Inderal)Indications: EVANS (generalized anxiety disorder),Panic disorder Take one tablet in the morning and one tablet at noon 180 Tablet 0 11/07/2023 Active traZODone HCl 100 MG Oral Tablet [...] severe pain 120 Tablet 0 12/15/2023 Active Cefuroxime Axetil 250 MG Oral Tablet (Ceftin)Indications:D ysuria Take 1 Tablet by mouth in the morning and 1 Tablet before bedtime. Do all this for 5 days. 10 Tablet 0 12/19/2023 Active documented as of this encounter (statuses as of 12/24/2023) Active Problems Problem Noted Date Diagnosed Date [...] as of this encounter (statuses as of 12/24/2023) Resolved Problems Problem Noted Date Diagnosed Date Resolved Date Bipolar disorder 07/30/2022 11/15/2022 Overview: More recent.specified code listed on PL documented as of this encounter (statuses as of 12/24/2023) Immunizations Name Administration Dates Next Due Pneumococcal [...] Telephone Encounter - Beverley Goodman OSA - 12/24/2023 1:37 PM EDT Done. 12/24/2023 * Telephone Encounter - Hafsa Quintero OSA - 12/24/2023 12:31 PM EDT No Appointments Available Patient declined appointments?: Yes What Visit Type is needed? Pre-Op If Acute Visit Type is needed, were surrounding clinics offered to patient (Yes/No)? Yes Was patient offered appointments with other available providers (Yes/No)? Yes See Call Details? (Yes or No): Yes documented in this encounter Plan of Treatment Upcoming Encounters Date Type Department Care Team (Late st Contact Info) Description 12/30/2023 11:40 AM EDT Office Visit [facility] [address] [facility] [phone] Edu Torre MD [address] [place] [address] 01/02/2024 2:00 PM EDT Telemedicine Psychiatry, [facility] [address] [facility] [place] [address] Yahaira Adams CRNP [address] [facility] [place] [address] 01/07/2024 10:30 AM EDT Office Visit Urology, [facility] [address] [facility] [place] [address] Arturo Ewing MD [address] [facility] [address] [place] [address] 03/10/2024 3:00 PM EDT Office Visit [facility] [address] [facility] [phone] Edu Torre MD [address] [place], [place] [phone] 03/10/2024 4:20 PM EDT Telemedicine Neurology, [place] [facility] [address] [place] [address] Chung Santos MD [address] [place] [address] [place] [address] 04/28/2024 11:15 AM EDT Hospital Encounter ENDO [facility], Endoscopy Room [facility] [address] [place] [address] Tate Dye MD [address] [place] [address] 04/28/2024 11:15 AM EDT - 04/28/2024 12:15 PM EDT Surgery ENDO [facility], Endoscopy Room [facility] [address] [place] [phone] Tate Dye MD [address] [place] [address] COLONOSCOPY FLEXIBLE PROXIMAL DIAGNOSTIC Scheduled Procedures Name Priority Associated Diagnoses Date/Ti [...] D LEVEL ONCE IN A LIFETIME-USE SMARTSET# [id number] Completed 01/27/2023, 08/13/2022 Pneumococcal Vaccine: 65+ Years [...] filedocumented as of this encounter Care Teams Supervisor Labor Gang Relationship Specialty Start Date End Date January, Edu Camacho MD [address] [place] [address] PCP - General Family Medicine 07/30/22 documented as of this encounter
--- OUTSIDE RECORDS SUMMARY | 2024-04-21 01:32 | External Medical Summary | Summary of Care ---
Author Name Unknown Organization [facility] Address [address] [place] [address] Phone [phone] Care Team Providers Care Fabric Finisher Name Role Phone Edu Torre MD Primary Care Provider [phone] Reason for Visit * Reason Comments Outpatient Testing Encounter Details Date Type Department Care Team (Late st Contact Info) Description 12/19/2023 1:40 PM EDT Laboratory Laboratory, [place] [address] [place] [phone] [place] [address] [place], [place] [phone] Arrived Allergies Active Allergy Reactions Criticality Noted Date Comments Prochlorperazine 07/30/2022 Morphine And Related 07/30/2022 documented as of this encounter (statuses as of 12/19/2023) Medications Medication Sig Dispensed Refills Start Date [...] as of this encounter (statuses as of 12/19/2023) Active Problems Problem Noted Date Diagnosed Date [...] as of this encounter (statuses as of 12/19/2023) Resolved Problems Problem Noted Date Diagnosed Date Resolved Date Bipolar disorder 07/30/2022 11/15/2022 Overview: More recent.specified code listed on PL documented as of this encounter (statuses as of 12/19/2023) Immunizations Name Administration Dates Next Due Pneumococcal [...] on file documented as of this encounter Plan of Treatment Upcoming Encounters Date Type Department Care Team (Late st Contact Info) Description 01/02/2024 2:00 PM EDT Telemedicine Psychiatry, [facility] [address] [place] [address] Yahaira Adams CRNP [address] [place] [address] 01/07/2024 10:30 AM EDT Office Visit Urology, [facility] [address] [place] [address] Arturo Ewing MD [address] [place] [address] [place] [address] 03/10/2024 3:00 PM EDT Office Visit [facility] [address] [facility] [phone] Edu Torre MD [address] [facility] [place] [address] 03/10/2024 4:20 PM EDT Telemedicine Neurology, [place] [facility] [address] [place] [address] Chung Santos MD [address] [place] [address] 04/28/2024 11:15 AM EDT Hospital Encounter ENDO [facility], Endoscopy Room [facility] [address] [place] [phone] Tate Dye MD [address] [place] [address] 04/28/2024 11:15 AM EDT - 04/28/2024 12:15 PM EDT Surgery ENDO [facility], Endoscopy Room [facility] [address] [place] [phone] Tate Dye MD [address] [place] [address] COLONOSCOPY FLEXIBLE PROXIMAL DIAGNOSTIC Scheduled Procedures Name Priority Associated Diagnoses Date/Ti sd COLONOSCOPY FLEXIBLE PROXIMA L DIAGNOSTIC Adenomatous polyp [...] - 2022-2 4 season) 2023 11/20/2020, 10/23/2020 Influenza Vaccine (FLU shot) (#1) 2023 Colorectal Cancer Screening 08/29/2023 Fecal Occult Blood Test 08/29/2023 08/29/20, 08/29/2022 Depression, Most Recent Scor e >= 10 (will fire each visit until score < 10) 11/27/2023 11/26/2023 Mammogram 02/15/2024 02/14/2023, 02/14/2023 DXA Scan 01/27/2025 01/27/2023 Lipid Panel 08/13/2027 08/13/2022 VITAMIN D LEVEL ONCE IN A LIFETIME-USE SMARTSET# [id number] Completed 01/27/2023, 08/13/2022 Pneumococcal Vaccine: 65+ Years [...] filedocumented as of this encounter Care Teams Fabric Finisher Relationship Specialty Start Date End Date January, Edu Camacho MD [address] [place] [address] PCP - General Family Medicine 07/30/22 documented as of this encounter
--- OUTSIDE RECORDS SUMMARY | 2024-04-21 01:32 | External Medical Summary | Summary of Care ---
Author Name Unknown Organization [facility] Address [address] [facility] [place] [address] Phone [phone] Care Team Providers Care Cooker Tender Name Role Phone Edu Torre MD Primary Care Provider [phone] Encounter Details Date Type Department Care Team (Late st Contact Info) Description 01/06/2024 Orders Only PATIENT PORTAL DO NOT DELETE THIS DEPT USED BY [place] [address] Allergies Active Allergy Reactions Criticality Noted Date Comments Prochlorperazine 07/30/2022 Morphine And Related 07/30/2022 documented as of this encounter (statuses as of 01/06/2024) Medications Medication Sig Dispensed Refills Start Date [...] as of this encounter (statuses as of 01/06/2024) Active Problems Problem Noted Date Diagnosed Date [...] as of this encounter (statuses as of 01/06/2024) Resolved Problems Problem Noted Date Diagnosed Date Resolved Date Bipolar disorder 07/30/2022 11/15/2022 Overview: More recent.specified code listed on PL documented as of this encounter (statuses as of 01/06/2024) Immunizations Name Administration Dates Next Due Pneumococcal [...] 01/07/2024 10:30 AM EDT Office Visit Urology, [facility] 132 [facility] [place] [address] Arturo Ewing MD 27 [facility] 270 [place] [address] 01/09/2024 12:40 PM EDT Office Visit Family [facility] [address] [facility] [phone] Puneet Peñaloza MD [address] [place] [facility] [place] [address] 02/13/2024 1:00 PM EDT Telemedicine Psychiatry, [address] [place] [address] Bryan Yahaira PersaudDEWAYNE [address] [place] [address] 03/10/2024 3:00 PM EDT Office Visit [facility] [address] [facility], [place] [address] Edu Torre MD [address] [place] [facility] [place] [address] 03/10/2024 4:20 PM EDT Telemedicine Neurology, [place] [facility] [address] [place] [address] Chung Santos MD [address] [place] [address] 04/28/2024 11:15 AM EDT Hospital Encounter ENDO [facility], Endoscopy Room [facility] [address] [place] [phone] Tate Dye MD [address] [place] [address] 04/28/2024 11:15 AM EDT - 04/28/2024 12:15 PM EDT Surgery ENDO [facility], Endoscopy Room [facility] [address] [place] [phone] Tate Dye MD [address] [place] [address] COLONOSCOPY FLEXIBLE PROXIMAL DIAGNOSTIC 05/07/2024 2:00 PM EDT Office Visit Audiology [facility] [address] [place] [address] Zonia Marvin Au.D. [address] [place] [address] Scheduled Procedures Name Priority Associated Diagnoses Date/Ti [...] D LEVEL ONCE IN A LIFETIME-USE SMARTSET# 89006 Completed 01/27/2023, 08/13/2022 Pneumococcal Vaccine: 65+ Years [...] filedocumented as of this encounter Care Teams Cooker Tender Relationship Specialty Start Date End Date January, Edu Camacho MD [address] [place] [address] PCP - General Family Medicine 07/30/22 documented as of this encounter
--- OUTSIDE RECORDS SUMMARY | 2024-04-21 01:32 | External Medical Summary | Summary of Care ---
Author Name Unknown Organization [facility] Address [address] [place] [address] Phone [phone] Care Team Providers Care Ear Specialist Name Role Phone Andrés Nguyen MD Primary Care Provider [phone] Reason for Visit * Reason Onset Date Comments Medication Refill 12/10/2023 Encounter Details Date Type Department Care Team (Late st Contact Info) Description 12/10/2023 Refill [facility] [address] [place] [address] Andrés Nguyen MD [address] [place], [place] [phone] Lumbar radiculopathy Allergies Active Allergy Reactions Criticality Noted Date Comments Prochlorperazine 07/30/2022 Morphine And Related 07/30/2022 documented as of this encounter (statuses as of 12/15/2023) Medications Medication Sig Dispensed Refills Start Date [...] 09/12/2023 Active ARIPiprazole 2 MG Oral Tablet (Abilify)Indications [...] 09/30/2023 Active clonazePAM 0.5 MG Oral Tablet (KlonoPIN)Indication [...] mouth every 6 hours as needed for Pain, Severe. 120 Tablet 0 12/15/2023 Active HYDROcodone-Acetamin ophen 5-325 MG Oral TabletIndications:Dorinda mbar radiculopathy Take 1 Tablet by mouth every 6 hours as needed for Pain, Severe. 120 Tablet 0 11/10/2023 4 Discontinu ed(Refill) documented as of this encounter (statuses as of 12/15/2023) Active Problems Problem Noted Date Diagnosed Date [...] as of this encounter (statuses as of 12/15/2023) Resolved Problems Problem Noted Date Diagnosed Date Resolved Date Bipolar disorder 07/30/2022 11/15/2022 Overview: More recent.specified code listed on PL documented as of this encounter (statuses as of 12/15/2023) Immunizations Name Administration Dates Next Due Pneumococcal [...] Telephone Encounter - Andrés Nguyen MD - 12/15/2023 7:42 PM EDTSigned Prescriptions: Disp Refills HYDROcodone-Acetaminophen 5-325 MG Oral Ta*120 Ta*0 Sig: Take 1 Tablet by mouth every 6 hours as needed for Pain, Severe.Authorizing Provider: ANDRÉS NGUYEN------- * Telephone Encounter - Maribeth Gtz [facility] - 12/11/2023 12:11 PM EDTPending Prescriptions: Disp Refills HYDROcodone-Acetaminophen 5-325 MG Oral Ta*120 Ta*0 Sig: Take 1 Tablet by mouth every 6 hours as needed for Pain, Severe. * Telephone Encounter - Maribeth Gtz [facility] - 12/11/2023 12:11 PM EDT I have reviewed the patients controlled substance dispensing history in the Prescription Drug Monitoring Program in compliance with the [facility] regulations before prescribing a controlled substance. PDMP checked on 12/11/2023. Pending Prescriptions: Disp Refills HYDROcodone-Acetaminophen 5-325 MG Oral T*120 Ta*0 Sig: Take 1 Tablet by mouth every 6 hours as needed for Pain, Severe. Last Visit: 09/12/2023 (in office), 08/27/2022 (telemedicine) Next Visit: 03/10/2024 Date medication was last filled: 11/11 Date medication is due for refill: 12/09 Pharmacy: [facility] Is this request for a controlled substance? Yes and Urine Drug Screen Not completed Toxicology results: Results for orders placed or performed in visit on 09/06/22 PAIN MANAGEMENT DRUG PANEL, URINE W/ INTERPRETATION Result Value Compliance Interpretation Based on the medication information provided and from [facility]: Please note hydrocodone and hydrocodone [...] request. Please approve if appropriate. Thank you, Maribeth Gtz, PharmD Clinical Pharmacist [facility] ([facility]) (formerly Telepharmacy) [phone] 12/11/2023, 12:11 PM documented in this encounter Plan of Treatment Upcoming Encounters Date Type Department Care Team (Late st Contact Info) Description 01/02/2024 2:00 PM EDT Telemedicine Psychiatry, [facility] 200 [facility] [place] [address] Yahaira Adams CRNP 200 [facility] [place] [address] 01/07/2024 10:30 AM EDT Office Visit Urology, [facility] 132 [facility] [place] [address] Arturo Ewing MD [facility] [address] [place] [address] 03/10/2024 3:00 PM EDT Office [address] [place] [phone] JanuaryAndrés MD [address] [facility] [place] [address] 03/10/2024 4:20 PM EDT Telemedicine Neurology, [place] [address] [place] [place] [address] Chung Santos MD [address] [place] [address] 04/28/2024 11:15 AM EDT Hospital Encounter ENDO [facility], Endoscopy Room [facility] [address] [place] [phone] Tate Dye MD [address] [place] [address] 04/28/2024 11:15 AM EDT - 04/28/2024 12:15 PM EDT Surgery ENDO [facility], Endoscopy Room [facility] [address] [place] [phone] Tate Dye MD [address] [place] [address] COLONOSCOPY FLEXIBLE PROXIMAL DIAGNOSTIC Scheduled Procedures Name [...] D LEVEL ONCE IN A LIFETIME-USE SMARTSET# [id number] Completed 01/27/2023, 08/13/2022 Pneumococcal Vaccine: 65+ Years [...] hemorrhage documented in this encounter Care Teams Ear Specialist Relationship Specialty Start Date End Date January, Andrés Camacho MD [address] [place] [address] PCP - General Family Medicine 07/30/22 documented as of this encounter
--- OUTSIDE RECORDS SUMMARY | 2024-04-21 01:32 | External Medical Summary | Summary of Care ---
Author Name Unknown Organization [facility] Address [address] [place] [address] Phone [phone] Care Team Providers Care Ice Guard Tester Name Role Phone Edu Torre MD Primary Care Provider [phone] Encounter Details Date Type Department Care Team (Late st Contact Info) Description 10/06/2023 Telephone OR [facility], Operating Room [facility] 132 [facility] [place] [address] Arturo Ewing MD 27 [facility] 270 [place] [id number] Allergies Active Allergy Reactions Criticality Noted Date Comments Prochlorperazine 07/30/2022 Morphine And Related 07/30/2022 documented as of this encounter (statuses as of 01/05/2024) Medications Medication Sig Dispensed Refills Start Date [...] MOUTH EVERY EVENING 100 Tablet 2 09/02/2023 09/01/2024 Active Nitrofurantoin Monohyd Macro 100 MG Oral [...] on tongue. 20 Tablet 0 09/12/2023 Active documented as of this encounter (statuses as of 01/05/2024) Active Problems Problem Noted Date Diagnosed Date [...] as of this encounter (statuses as of 01/05/2024) Resolved Problems Problem Noted Date Diagnosed Date Resolved Date Bipolar disorder 07/30/2022 11/15/2022 Overview: More recent.specified code listed on PL documented as of this encounter (statuses as of 01/05/2024) Immunizations Name Administration Dates Next Due Pneumococcal [...] encounter Miscellaneous Notes * Telephone Encounter - Perla Ibrahim RN - 10/06/2023 9:38 AM EST Attempted to call for pre anesthesia evaluation. No answer. Voice mail left requesting return call documented in this encounter Plan of Treatment Upcoming Encounters Date Type Department Care Team (Late st Contact Info) Description 01/07/2024 10:30 AM EDT Office Visit Urology, [facility] [address] [place] [address] Arturo Ewing MD [address] [place] 270 [place] [address] 01/09/2024 12:40 PM EDT Office Visit [facility] [address] [place] [address] Puneet Peñaloza MD [address] [place], [place] [phone] 02/13/2024 1:00 PM EDT Telemedicine Psychiatry, [facility] 200 [facility] [place] [address] Yahaira Adams CRNP [address] [place] [address] 03/10/2024 3:00 PM EDT Office Visit [facility] [address] [place] [address] Edu Torre MD [address] [place], [place] [address] 03/10/2024 4:20 PM EDT Telemedicine Neurology, [place] [facility] [address] [place] [address] [place] [address] Chung Santos MD [address] [place] [address] [place] [address] 04/28/2024 11:15 AM EDT Hospital Encounter ENDO [facility], Endoscopy Room [facility] [address] [place] [phone] Tate Dye MD 132 [place] [address] 04/28/2024 11:15 AM EDT - 04/28/2024 12:15 PM EDT Surgery ENDO [facility], Endoscopy Room [facility] [address] [place] [phone] Tate Dye MD [address] [place] [address] COLONOSCOPY FLEXIBLE PROXIMAL DIAGNOSTIC 05/07/2024 2:00 PM EDT Office Visit Audiology [facility] [address] [place] [address] Zonia Marvin Au.D. [address] [place] [address] Scheduled Procedures Name Priority Associated Diagnoses Date/Ti [...] D LEVEL ONCE IN A LIFETIME-USE SMARTSET# [id number] Completed 01/27/2023, 08/13/2022 Pneumococcal Vaccine: 65+ Years [...] filedocumented as of this encounter Care Teams Ice Guard Tester Relationship Specialty Start Date End Date January, Edu Camacho MD [address] [place] [address] PCP - General Family Medicine 07/30/22 documented as of this encounter
--- OUTSIDE RECORDS SUMMARY | 2024-04-21 01:32 | External Medical Summary ---
Author Name Unknown Address Unknown Organization K01:[facility] - [address] [place] [id number] Laboratory Report Ordering Provider Test Date Status 12/19/2023 13:07:48 Final Observation Date Value Abnormality Reference (Units) Status Bacteria identified in Specimen by Culture 12/19/2023 13:07:48 No significant growth Final Test: Culture, Urine, Quant itative
Specimen Source: Urine, Clean Catch
Specimen Type: Urine
Specimen Date: 12/19/2023 1:07 PM
Result Date: 12/20/2023 4:08 PM
Result Status: Final result
Resulting Lab: [facility]
[address]
[place] [address]

CULTURE

No significant growth

null Performing Location [facility] - [address] [facility] [address]
--- OUTSIDE RECORDS SUMMARY | 2024-04-21 01:32 | External Medical Summary | Summary of Care ---
Author Name Unknown Organization [facility] Address [address] [place] [address] Phone [phone] Care Team Providers Care Manager Linux Name Role Phone Andrés Nguyen MD Primary Care Provider [phone] Reason for Visit * Reason Comments Medication Refill Encounter Details Date Type Department Care Team (Late st Contact Info) Description 01/02/[address] [facility] [address] [place] [address] Andrés Nguyen MD [address] [place], [place] [phone] Encounter for long-term (current) use of medications*; Gastroesophageal reflux disease, unspecified whether esophagitis present Allergies Active Allergy Reactions Criticality Noted Date Comments Prochlorperazine 07/30/2022 Morphine And Related 07/30/2022 documented as of this encounter (statuses as of 01/03/2024) Medications Medication Sig Dispensed Refills Start Date [...] at noon 180 Tablet 0 01/02/2024 Active Omeprazole 40 MG Oral Capsule Delayed Release (PriLOSEC)Indication s:Gastroesophageal reflux disease, unspecified whether esophagitis present TAKE ONE CAPSULE BY MOUTH EVERY MORNING ONE HOUR BEFORE THE FIRST MEAL OF THE DAY. 100 Capsule 3 11/07/2022 4 Discontinu ed(Refill) documented as of this encounter (statuses as of 01/03/2024) Active Problems Problem Noted Date Diagnosed Date [...] as of this encounter (statuses as of 01/03/2024) Resolved Problems Problem Noted Date Diagnosed Date Resolved Date Bipolar disorder 07/30/2022 11/15/2022 Overview: More recent.specified code listed on PL documented as of this encounter (statuses as of 01/03/2024) Immunizations Name Administration Dates Next Due Pneumococcal [...] encounter Miscellaneous Notes * Telephone Encounter - Denisa Driscoll, [facility] - 01/03/2024 7:26 AM EDT Signed Prescriptions: Disp Refills Omeprazole 40 MG Oral Capsule Delayed Rele*100 Ca*3 Sig: TAKE ONE CAPSULE BY MOUTH EVERY MORNING ONE HOUR BEFORE THE FIRST MEAL OF THE DAY.Authorizing Provider: ANDRÉS NGUYENOrdering User: DENISA DRISCOLL documented in this encounter Plan of Treatment Upcoming Encounters Date Type Department Care Team (Late st Contact Info) Description 01/07/2024 10:30 AM EDT Office Visit Urology, [facility] 132 [facility] [place] [address] Arturo Ewing MD 27 [facility] 270 [facility] [place] [address] 01/09/2024 12:40 PM EDT Office Visit [address] [address] Puneet Peñaloza MD [address] [place] [address] 02/13/2024 1:00 PM EDT Telemedicine Psychiatry, [facility] [address] [place] [address] Yahaira Adams CRNP [address] [place] [address] 03/10/2024 3:00 PM EDT Office Visit [address] [place] [address] Andrés Nguyen MD [address] [place], [place] [phone] 03/10/2024 4:20 PM EDT Telemedicine Neurology, [place] [facility] [address] [place] [address] [place] [address] Chung Santos MD [address] [place] [address] [place] [address] 04/28/2024 11:15 AM EDT Hospital Encounter ENDO [facility], Endoscopy Room [facility] [address] [place] [phone] Tate Dye MD [address] [place] [address] 04/28/2024 11:15 AM EDT - 04/28/2024 12:15 PM EDT Surgery ENDO [facility], Endoscopy Room [facility] [address] [place] [phone] Tate Dye MD [address] [place] [address] COLONOSCOPY FLEXIBLE PROXIMAL DIAGNOSTIC 05/07/2024 2:00 PM EDT Office Visit Audiology [facility] [address] [place] [address] Zonia Marvin Au.D. [address] [place] [address] Scheduled Orders Name Type Priority Associated Diagnoses Orde r Schedule MAGNESIUM Lab Routine Encounter for long-term (current) use of medications Expected: 01/03/2024, Expires: 01/02/2025 Scheduled Procedures Name Priority Associated Diagnoses Date/Ti [...] D LEVEL ONCE IN A LIFETIME-USE SMARTSET# [id number] Completed 01/27/2023, 08/13/2022 Pneumococcal Vaccine: 65+ Years [...] as of this encounter Visit Diagnoses Diagnosis Encounter for long-term (current) use of medications- Primary Encounter for long-term (current) use of other medications Gastroesophageal reflux disease, unspecified whether esophagitis present Adenomatous polyp of colon, unspecified part of colon Gastroesophageal reflux disease with esophagitis without hemorrhage documented in this encounter Care Teams Manager Linux Relationship Specialty Start Date End Date January, Andrés Camacho MD [address] [place] [facility] [place] [address] PCP - General Family Medicine 07/30/22 documented as of this encounter
--- OUTSIDE RECORDS SUMMARY | 2024-04-21 01:33 | External Medical Summary | Summary of Care ---
Author Name Unknown Organization [facility] Address [address] [place] [address] Phone [phone] Care Team Providers Care Clothes Wringer Name Role Phone Edu Torre MD Primary Care Provider [phone] Reason for Visit * Reason Onset Date Comments Other 08/20/2023 Encounter Details Date Type Department Care Team (Late st Contact Info) Description 08/20/2023 Telephone [facility] [address] [place] [address] Edu Torre MD [address] [place] [address] Other Allergies Active Allergy Reactions Criticality Noted Date Comments Prochlorperazine 07/30/2022 Morphine And Related 07/30/2022 documented as of this encounter (statuses as of 11/19/2023) Medications Medication Sig Dispensed Refills Start Date [...] OF THE DAY. 100 Capsule 3 11/07/2022 01/10/2024 Active Topiramate 50 MG Oral Tablet (topAMAX) [...] taking tablet. 15 Tablet 1 07/24/2023 Active documented as of this encounter (statuses as of 11/19/2023) Active Problems Problem Noted Date Diagnosed Date [...] as of this encounter (statuses as of 11/19/2023) Resolved Problems Problem Noted Date Diagnosed Date Resolved Date Bipolar disorder 07/30/2022 11/15/2022 Overview: More recent.specified code listed on PL documented as of this encounter (statuses as of 11/19/2023) Immunizations Name Administration Dates Next Due Pneumococcal Conjugate Vaccine, 20-valent (Prevn ar20) 04/22/2023 documented as of this encounter Social History Tobacco Use Types Packs/Day Years Used Date Smoking Tobacco: Never Smokeless Tobacco: Never Alcohol Use Standard Drinks/Week Comments Never 0 (1 standard drink = 0.6 oz pur e alcohol) PHQ-2 Answer Date Recorded PHQ Adult Total Score 17 10/01/2023 Hunger Vital Sign Answer Date Recorded Within [...] encounter Miscellaneous Notes * Telephone Encounter - Johanny Hopkins CPhT - 08/20/2023 9:55 AM EST Patient retuning call to inform she uses [id number] [address] [place] [address] pharmacy. Thank you, Johanny Hopkins, Diabetic Educator I [facility]ized Clinical Pharmacy Services (Formerly Telepharmacy) 08/20/2023, 9:56 AM documented in this encounter Plan of Treatment Upcoming Encounters Date Type Department Care Team (Late st Contact Info) Description 12/09/2023 3:00 PM EDT Office Visit Neurology [place] [address] [place] [address] Wayne Patton, DO [address] [place] [address] 01/02/2024 2:00 PM EDT Telemedicine Psychiatry, [facility] [address] [place] [address] Yahaira Adams CRNP [address] [place] [address] 01/07/2024 10:30 AM EDT Office Visit Urology, [facility] 132 [facility] [place] [address] Arturo Ewing MD [address] [place] [address] 02/20/2024 2:00 PM EDT Office Visit Audiology [facility] 132 [facility] [place] [address] Zonia Marvin AuShrai 132 [facility] [place] [address] 03/10/2024 3:00 PM EDT Office Visit [facility] [address] [place] [phone] Edu Torre MD [address] [place] [address] 03/10/2024 4:20 PM EDT Telemedicine Neurology, [place] [facility] [address] [place] [address] Chung Santos MD [address] [place] [address] 04/28/2024 11:15 AM EDT Hospital Encounter ENDO [facility] [place] [phone] Tate Dye MD [address] [place] [address] 04/28/2024 11:15 AM EDT - 04/28/2024 12:15 PM EDT Surgery ENDO [facility], Endoscopy Room [facility] [address] [place] [phone] Tate Dye MD [address] [place] [address] COLONOSCOPY FLEXIBLE PROXIMAL DIAGNOSTIC Scheduled Procedures Name [...] fire each visit until score < 10) 10/02/2023 10/01/2023 Mammogram 02/15/2024 02/14/2023, 02/14/2023 DXA Scan 01/27/2025 01/27/2023 Lipid Panel 08/13/2027 08/13/2022 VITAMIN D LEVEL ONCE IN A LIFETIME-USE SMARTSET# [id number] Completed 01/27/2023, 08/13/2022 Pneumococcal Vaccine: 65+ Years [...] filedocumented as of this encounter Care Teams Clothes Wringer Relationship Specialty Start Date End Date January, Edu Camacho MD [address] [place] [address] PCP - General Family Medicine 07/30/22 documented as of this encounter
--- OUTSIDE RECORDS SUMMARY | 2024-04-21 01:33 | External Medical Summary | Summary of Care ---
Author Name Unknown Organization [facility] Address [address] [place] [address] Phone [phone] Care Team Providers Care Luncheonette Operator Name Role Phone Andrés Nguyen MD Primary Care Provider [phone] Reason for Visit * Reason Onset Date Comments Medication Refill 11/08/2023 Encounter Details Date Type Department Care Team (Late st Contact Info) Description 11/08/2023 Refill [facility] [address] [place] [address] Andrés Nguyen MD [address], [place] [id number] Lumbar radiculopathy Allergies Active Allergy Reactions Criticality Noted Date Comments Prochlorperazine 07/30/2022 Morphine And Related 07/30/2022 documented as of this encounter (statuses as of 11/12/2023) Medications Medication Sig Dispensed Refills Start Date [...] EVENING 100 Tablet 2 09/02/2023 4 Active ARIPiprazole 10 MG Oral Tablet (Abilify)Indications :Bipolar I disorder, most recent episode depressed (HCC) Take 1 Tablet by mouth every night at bedtime. 90 Tablet 0 09/02/2023 Active Nitrofurantoin Monohyd Macro 100 MG [...] disorder),Panic disorder Take one tablet in the AM and one tablet at noon 180 Tablet [...] mg capsule 90 Capsule 0 11/07/2023 Active HYDROcodone-Acetamin ophen 5-325 MG Oral TabletIndications:Dorinda mbar radiculopathy Take 1 Tablet by mouth every 6 hours as needed for Pain, Severe. 120 Tablet 0 11/10/2023 Active HYDROcodone-Acetamin ophen 5-325 MG Oral TabletIndications:Dorinda mbar radiculopathy Take 1 Tablet by mouth every 6 hours as needed for severe pain 120 Tablet 0 10/03/2023 4 Discontinu ed(Refill) documented as of this encounter (statuses as of 11/12/2023) Active Problems Problem Noted Date Diagnosed Date [...] as of this encounter (statuses as of 11/12/2023) Resolved Problems Problem Noted Date Diagnosed Date Resolved Date Bipolar disorder 07/30/2022 11/15/2022 Overview: More recent.specified code listed on PL documented as of this encounter (statuses as of 11/12/2023) Immunizations Name Administration Dates Next Due Pneumococcal [...] encounter Miscellaneous Notes * Telephone Encounter - Melani Aguilera CPhT - 11/12/2023 4:17 PM EST Called james- script is ready for garbage pick up worker Pt's daughter calling to request hydrocodone. Informed pt that RX is available at their pharmacy. Pt verbalized understanding and stated they will check with their pharmacy regarding this medication. Thank you, Melani Aguilera CPhT II Zinc Plate Grainer [facility] ([facility]) (Formerly Telepharmacy) 11/12/2023, 4:17 PM * Telephone Encounter - Andrés Nguyen MD - 11/10/2023 8:18 PM ESTSigned Prescriptions: Disp Refills HYDROcodone-Acetaminophen 5-325 MG Oral Ta*120 Ta*0 Sig: Take 1 Tablet by mouth every 6 hours as needed for Pain, Severe.Authorizing Provider: ANDRÉS NGUYEN------- * Telephone Encounter - Jaja Hammonds [facility] - 11/09/2023 8:12 PM ESTPending Prescriptions: Disp Refills HYDROcodone-Acetaminophen 5-325 MG Oral Ta*120 Ta*0 Sig: Take 1 Tablet by mouth every 6 hours as needed for Pain, Severe. * Telephone Encounter - Jaja Hammonds [facility] - 11/09/2023 8:12 PM EST I have reviewed the patients controlled substance dispensing history in the Prescription Drug Monitoring Program in compliance with the [facility] regulations before prescribing a controlled substance. PDMP checked on 11/09/2023. Pending Prescriptions: Disp Refills HYDROcodone-Acetaminophen 5-325 MG Oral T*120 Ta*0 Sig: Take 1 Tablet by mouth every 6 hours as needed for Pain, Severe. Last Visit: 09/12/2023 (in office), 08/27/2022 (telemedicine) Next Visit: 11/11/2023 Date medication was last filled: 10/04/23 Date medication is due for refill: 11/02/23 Pharmacy: [id number] Is this request for a controlled substance? Yes and Urine Drug Screen Not completed Toxicology results: Results for orders placed or performed in visit on 09/06/22 PAIN MANAGEMENT DRUG PANEL, URINE W/ INTERPRETATION Result Value Compliance Interpretation Based on the medication information provided and from Epic: Please note hydrocodone and hydrocodone metabolite, dihydrocodeine, [...] request. Please approve if appropriate. Thank you, Jaja Hammonds, PharmD Clinical Pharmacist [facility] ([facility]PS) 11/09/23 8:12 PM [phone] documented in this encounter Plan of Treatment Upcoming Encounters Date Type Department Care Team (Late st Contact Info) Description 12/09/2023 3:00 PM EDT Office Visit Neurology [facility] [address] [place] [address] Wayne Patton, DO [address] [place] [address] 01/02/2024 2:00 PM EDT Telemedicine Psychiatry, [facility] [address] [place] [address] Yahaira Adams CRNP [address] [place] [address] 01/07/2024 10:30 AM EDT Office Visit Urology, [facility] [address] [facility] [place] [address] Arturo Ewing MD [facility] [address] [place] [address] 02/20/2024 2:00 PM EDT Office Visit Audiology [facility] [address] [place] [address] Zonia Marvin AuShari [facility] [place] [address] 03/10/2024 3:00 PM EDT Office Visit [facility] [address] [place] [phone] Andrés Nguyen MD [address] [place] [address] 03/10/2024 4:20 PM EDT Telemedicine Neurology, [place] [address] [place] [address] Chung Santos MD [address] [place] [address] 04/28/2024 11:15 AM EDT Hospital Encounter [facility], Endoscopy Room [facility] [address] [place] [phone] Tate Dye MD [address] [place] [address] 04/28/2024 11:15 AM EDT - 04/28/2024 12:15 PM EDT Surgery [facility]O [facility], Endoscopy Room [facility] [address] [place] [phone] Tate Dye MD [address] [place] [address] COLONOSCOPY FLEXIBLE PROXIMAL DIAGNOSTIC Scheduled Procedures Name [...] D LEVEL ONCE IN A LIFETIME-USE SMARTSET# [id number] Completed 01/27/2023, 08/13/2022 Pneumococcal Vaccine: 65+ Years [...] hemorrhage documented in this encounter Care Teams Luncheonette Operator Relationship Specialty Start Date End Date January, Andrés Camacho MD [address] [place] [address] PCP - General Family Medicine 07/30/22 documented as of this encounter
--- OUTSIDE RECORDS SUMMARY | 2024-04-21 01:33 | External Medical Summary | Summary of Care ---
Author Name Unknown Organization [facility] Address [address] [place] [address] Phone [phone] Care Team Providers Care Bone Plant Supervisor Name Role Phone Edu Torre MD Primary Care Provider [phone] Encounter Details Date Type Department Care Team (Late st Contact Info) Description 09/08/2023 Telephone Psychiatry, [facility] [address] [place] [address] AdamsYahaira CRNP [address] [place] [address] Allergies Active Allergy Reactions Criticality Noted Date Comments Prochlorperazine 07/30/2022 Morphine And Related 07/30/2022 documented as of this encounter (statuses as of 12/08/2023) Medications Medication Sig Dispensed Refills Start Date [...] With food.. 90 Capsule 1 09/05/2023 Active documented as of this encounter (statuses as of 12/08/2023) Active Problems Problem Noted Date Diagnosed Date [...] as of this encounter (statuses as of 12/08/2023) Resolved Problems Problem Noted Date Diagnosed Date Resolved Date Bipolar disorder 07/30/2022 11/15/2022 Overview: More recent.specified code listed on PL documented as of this encounter (statuses as of 12/08/2023) Immunizations Name Administration Dates Next Due Pneumococcal [...] Description 01/02/2024 2:00 PM EDT Telemedicine Psychiatry, [facility] [address] [place] [address] Yahaira Adams CRNP [address] [place] [address] 01/07/2024 10:30 AM EDT Office Visit Urology, [facility] 132 [facility] [place] [address] Arturo Ewing MD 27 [facility] [place] [address] [place] [address] 02/20/2024 2:00 PM EDT Office Visit Audiology [facility] [address] [place] [address] Zonia Marvin Au.D. [address] [place] [address] 03/10/2024 3:00 PM EDT [facility] [address] [facility] [phone] JanuaryEdu MD [address] [facility], [place] [address] 03/10/2024 4:20 PM EDT Telemedicine Neurology, [place] [address] [place] [address] Chung Santos MD [address] [place] [address] 04/28/2024 11:15 AM EDT Hospital Encounter [facility]O [facility], Endoscopy Room [facility] [address] [place] [phone] Tate Dye MD [address] [place] [address] 04/28/2024 11:15 AM EDT - 04/28/2024 12:15 PM EDT Surgery [facility], Endoscopy Room [facility] [address] [place] [phone] Tate Dye MD [address] [place] [address] COLONOSCOPY FLEXIBLE PROXIMAL DIAGNOSTIC Scheduled Procedures Name [...] D LEVEL ONCE IN A LIFETIME-USE SMARTSET# [id number] Completed 01/27/2023, 08/13/2022 Pneumococcal Vaccine: 65+ Years [...] filedocumented as of this encounter Care Teams Bone Plant Supervisor Relationship Specialty Start Date End Date January, Edu Camacho MD [address] [place] [address] PCP - General Family Medicine 07/30/22 documented as of this encounter
--- OUTSIDE RECORDS SUMMARY | 2024-04-21 01:33 | External Medical Summary | Summary of Care ---
Author Name Unknown Organization [facility] Address [address] [place] [address] Phone [phone] Care Team Providers Care Vice President Quality Improvement Name Role Phone Edu Torre MD Primary Care Provider Reason for Visit * Reason Comments Medication Refill Encounter Details Date Type Department Care Team (Late st Contact Info) Description 11/25/2023 Refill Psychiatry, [facility] 200 [place] [address] Yahaira Adams CRNP [address] [place] [address] Bipolar I disorder, most recent episode depressed (HCC) Allergies Active Allergy Reactions Criticality Noted Date Comments Prochlorperazine 07/30/2022 Morphine And Related 07/30/2022 documented as of this encounter (statuses as of 12/01/2023) Medications Medication Sig Dispensed Refills Start Date [...] Pain, Severe. 120 Tablet 0 11/10/2023 Active ARIPiprazole 10 MG Oral Tablet (Abilify)Indications :Bipolar I disorder, most recent episode depressed (HCC) Take 1 Tablet by mouth every night at bedtime. 90 Tablet 0 12/01/2023 Active ARIPiprazole 10 MG Oral Tablet (Abilify)Indications :Bipolar I disorder, most recent episode depressed (HCC) Take 1 Tablet by mouth every night at bedtime. 90 Tablet 0 09/02/2023 Discontinu ed(Refill) documented as of this encounter (statuses as of 12/01/2023) Active Problems Problem Noted Date Diagnosed Date [...] as of this encounter (statuses as of 12/01/2023) Resolved Problems Problem Noted Date Diagnosed Date Resolved Date Bipolar disorder 07/30/2022 11/15/2022 Overview: More recent.specified code listed on PL documented as of this encounter (statuses as of 12/01/2023) Immunizations Name Administration Dates Next Due Pneumococcal [...] encounter Miscellaneous Notes * Telephone Encounter - Yahaira Adams CRNP - 12/01/2023 9:08 AM EDTSigned Prescriptions: Disp Refills ARIPiprazole 10 MG Oral Tablet (Abilify) 90 Tab*0 Sig: Take 1 Tablet by mouth every night at bedtime. Authorizing Provider: YAHAIRA ADAMS * Telephone Encounter - Yahaira Adams CRNP - 12/01/2023 9:08 AM EDTSigned Prescriptions: Disp Refills ARIPiprazole 10 MG Oral Tablet (Abilify) 90 Tab*0 Sig: Take 1 Tablet by mouth every night at bedtime. Authorizing Provider: YAHAIRA ADAMS * Telephone Encounter - Yahaira Adams CRNP - 12/01/2023 9:08 AM EDTSigned Prescriptions: Disp Refills ARIPiprazole 10 MG Oral Tablet (Abilify) 90 Tab*0 Sig: Take 1 Tablet by mouth every night at bedtime. Authorizing Provider: YAHAIRA ADAMS * Telephone Encounter - Mary Jane Winters, [facility] - 12/01/2023 8:53 AM EDT Pending Prescriptions: Disp Refills ARIPiprazole 10 MG Oral Tablet (Abilify) 90 Tab*0 Sig: Take 1 Tablet by mouth every night at bedtime. * Telephone Encounter - Mary Jane Winters MED ASSIST - 12/01/2023 8:52 AM EDT Refill request from patient (Casi) for Abilify 10mg. Medication last filled on 09/02/23 with 0 refills. Patient last seen on 11/07/23 with return appointment scheduled for 01/02/24. Patient had 0 cancelled appointments and 0 NO SHOW appointments. * Telephone Encounter - Argentina Wyatt PHARM Tech - 12/01/2023 8:35 AM EDT Pharmacy calling to check on status of abilify. Thank you, Argentina Wyatt [facility] Tube Machine Operator II [facility] Pharmacy Services (CCPS) (Formerly Telepharmacy) 12/01/2023, 8:35 AM * Telephone Encounter - Lauryn Garcia CPhT - 11/27/2023 2:53 PM EST Did you pend patient's preferred pharmacy and medication before forwarding?yes Pharmacy: [facility] Pending Prescriptions: Disp Refills ARIPiprazole 10 MG Oral Tablet (Abilify) 90 Tab*0 Sig: Take 1 Tablet by mouth every night at bedtime. Last Visit: 03/10/2023 (in office), 11/07/2023 (telemedicine) Next Visit: 01/02/2024 If no future appointments scheduled, and last appointment is greater than a year ago, please schedule patient for a follow-up appointment Last date the medication was ordered: Is this request for a controlled substance?No [...] PM EDT Office Visit Neurology [facility] [place] [address] [place], [place] [address] Wayne Patton, DO [address] [place] [address] 01/02/2024 2:00 PM EDT Telemedicine Psychiatry, [facility] [address] [place] [address] Yahaira Adams CRNP [address] [place] [address] 01/07/2024 10:30 AM EDT Office Visit Urology, [facility] [address] [facility] [place] [address] Arturo Ewing MD [facility] [address] [place] [address] 02/20/2024 2:00 PM EDT Office Visit Audiology [facility] [address] [place] [place] [address] Zonia Marvin AuShari [facility] [place] [address] 03/10/2024 3:00 PM EDT Office Visit [facility] [address] [place] [phone] Edu Torre MD [address] [place] [address] 03/10/2024 4:20 PM EDT Telemedicine Neurology, [place] [address] [place] [address] Chung Santos MD [address] [place] [address] 04/28/2024 11:15 AM EDT Hospital Encounter [facility], Endoscopy Room [facility] [address] [place] [phone] Tate Dye MD [address] [place] [address] 04/28/2024 11:15 AM EDT - 04/28/2024 12:15 PM EDT Surgery [facility]O [facility], Endoscopy Room [facility] [address] [place] [phone] Tate Dye MD [address] [place] [address] COLONOSCOPY FLEXIBLE PROXIMAL DIAGNOSTIC Scheduled Procedures Name [...] D LEVEL ONCE IN A LIFETIME-USE SMARTSET# [id number] Completed 01/27/2023, 08/13/2022 Pneumococcal Vaccine: 65+ Years [...] hemorrhage documented in this encounter Care Teams Vice President Quality Improvement Relationship Specialty Start Date End Date January, Edu Camacho MD [address] [place] [address] PCP - General Family Medicine 07/30/22 documented as of this encounter
--- OUTSIDE RECORDS SUMMARY | 2024-04-21 01:33 | External Medical Summary | Summary of Care ---
Author Name Unknown Organization [facility] Address [address] [place] [address] Phone [phone] Care Team Providers Care Commercial Escrow Assistant Name Role Phone Edu Torre MD Primary Care Provider Reason for Visit * Reason Onset Date Comments Advice 10/28/2023 Encounter Details Date Type Department Care Team (Late st Contact Info) Description 10/28/2023 Telephone Audiology [facility] [address] [place] [address] Services, Scheduling [address] [place] [address] Advice Allergies Active Allergy Reactions Criticality Noted Date Comments Prochlorperazine 07/30/2022 Morphine And Related 07/30/2022 documented as of this encounter (statuses as of 11/21/2023) Medications Medication Sig Dispensed Refills Start Date [...] 4 Active ARIPiprazole 10 MG Oral Tablet (Abilify)Indications: [...] before bedtime. 180 Capsule 0 09/30/2023 Active documented as of this encounter (statuses as of 11/21/2023) Active Problems Problem Noted Date Diagnosed Date [...] as of this encounter (statuses as of 11/21/2023) Resolved Problems Problem Noted Date Diagnosed Date Resolved Date Bipolar disorder 07/30/2022 11/15/2022 Overview: More recent.specified code listed on PL documented as of this encounter (statuses as of 11/21/2023) Immunizations Name Administration Dates Next Due Pneumococcal [...] encounter Miscellaneous Notes * Telephone Encounter - Kajal Nelson LPN - 11/21/2023 11:14 AM EST MyG sent to pt. * Telephone Encounter - Kajal Nelson LPN - 11/12/2023 10:19 AM EST Any sooner audio appts available? * Telephone Encounter - Lima Farmer OSA - 10/28/2023 1:53 PM EST LM for pt to please return call. Will offer sooner appt. * Telephone Encounter - Mikaela Leger OSA - 10/28/2023 1:24 PM EST Pt calling in regarding her appt in December. PT stated she is having hearing loss in both ears and does not think she should wait till December. Please advise documented in this encounter Plan of Treatment Upcoming Encounters Date Type Department Care Team (Late st Contact Info) Description 12/09/2023 3:00 PM EDT Office Visit Neurology [facility] [place] [address] [place] [address] Wayne Patton, [address] [place] [address] [address] 01/02/2024 2:00 PM EDT Telemedicine Psychiatry, [facility] [address] [place] [address] [place] Yahaira Cori, SHORE HAND DREDGE OR BARGE [address] [place] [address] 01/07/2024 10:30 AM EDT Office Visit Urology, [facility] 132 [facility] [place] [address] Arturo Ewing MD [address] [place] [address] [place] [address] 02/20/2024 2:00 PM EDT Office Visit Audiology [facility] 132 [facility] [place] [address] Zonia Marvin Au.D. 132 [facility] [place] [address] 03/10/2024 3:00 PM EDT Office Visit [facility] [address] [place] [phone] Edu Torre MD [address] [place] [address] 03/10/2024 4:20 PM EDT Telemedicine Neurology, [place] [address] [place] [address] Chung Santos MD [address] [place] [address] 04/28/2024 11:15 AM EDT Hospital Encounter [facility], Endoscopy Room [facility] [address] [place] [phone] Tate Dye MD [address] [place] [address] 04/28/2024 11:15 AM EDT - 04/28/2024 12:15 PM EDT Surgery [facility], Endoscopy Room [facility] [address] [place] [phone] Tate Dye MD [address] [place] [address] COLONOSCOPY FLEXIBLE PROXIMAL DIAGNOSTIC Scheduled Procedures Name [...] D LEVEL ONCE IN A LIFETIME-USE SMARTSET# [id number] Completed 01/27/2023, 08/13/2022 Pneumococcal Vaccine: 65+ Years [...] filedocumented as of this encounter Care Teams Commercial Escrow Assistant Relationship Specialty Start Date End Date January, Edu Camacho MD [address] [place] [address] PCP - General Family Medicine 07/30/22 documented as of this encounter
--- OUTSIDE RECORDS SUMMARY | 2024-04-21 01:33 | External Medical Summary | Summary of Care ---
Author Name Unknown Organization [facility] Address [address] [place] [address] Phone [phone] Care Team Providers Care Cabana Attendant Name Role Phone Edu Torre MD Primary Care Provider [phone] Reason for Visit * Reason Onset Date Comments Appointment 11/07/2023 Encounter Details Date Type Department Care Team (Late st Contact Info) Description 11/07/2023 Telephone Gastroenterology, [facility] [address] [facility] [place] [phone] Services, Scheduling [address] [place] [address] Appointment Allergies Active Allergy Reactions Criticality Noted Date Comments Prochlorperazine 07/30/2022 Morphine And Related 07/30/2022 documented as of this encounter (statuses as of 11/24/2023) Medications Medication Sig Dispensed Refills Start Date [...] as of this encounter (statuses as of 11/24/2023) Active Problems Problem Noted Date Diagnosed Date [...] as of this encounter (statuses as of 11/24/2023) Resolved Problems Problem Noted Date Diagnosed Date Resolved Date Bipolar disorder 07/30/2022 11/15/2022 Overview: More recent.specified code listed on PL documented as of this encounter (statuses as of 11/24/2023) Immunizations Name Administration Dates Next Due Pneumococcal [...] Miscellaneous Notes * Telephone Encounter - Arely Ventura OSA - 11/24/2023 2:31 PM EST Res'd to 04/28/24. * Telephone Encounter - Zahraa Zhang OSA - 11/07/2023 12:08 PM EST Patient is calling because she got a phone message that her December 09 procedure was being canceled please give her a call back documented in this encounter Plan of Treatment Upcoming Encounters Date Type Department Care Team (Late st Contact Info) Description 12/09/2023 3:00 PM EDT Office Visit Neurology [facility] 200 [facility] [place] [address] Wayne Patton, DO 200 [facility] [place] [address] 01/02/2024 2:00 PM EDT Telemedicine Psychiatry, [facility] 200 [facility] [place] [address] Yahaira Adams CRNP 200 [facility] [place] [address] 01/07/2024 10:30 AM EDT Office Visit Urology, [facility] 132 [facility] [place] [address] Arturo Ewing MD 27 [facility] [address] [place] [address] 02/20/2024 2:00 PM EDT Office Visit Audiology [facility] [address] [place] [address] Zonia Marvin Au.D. [address] [place] [address] 03/10/2024 3:00 PM EDT [facility] [address] [facility] [phone] Edu Torre MD [address] [facility], [place] [address] 03/10/2024 4:20 PM EDT Telemedicine Neurology, [place] [address] [place] [address] Chung Santos MD [address] [place] [address] 04/28/2024 11:15 AM EDT Hospital Encounter [facility]O [facility], Endoscopy Room [facility] [address] [place] [phone] Tate Dye MD [address] [place] [address] 04/28/2024 11:15 AM EDT - 04/28/2024 12:15 PM EDT Surgery [facility], Endoscopy Room [facility] [address] [place] [phone] Tate Dye MD [address] [place] [address] COLONOSCOPY FLEXIBLE PROXIMAL DIAGNOSTIC Scheduled Procedures Name [...] D LEVEL ONCE IN A LIFETIME-USE SMARTSET# [id number] Completed 01/27/2023, 08/13/2022 Pneumococcal Vaccine: 65+ Years [...] filedocumented as of this encounter Care Teams Cabana Attendant Relationship Specialty Start Date End Date January, Edu Camacho MD [address] [place] [address] PCP - General Family Medicine 07/30/22 documented as of this encounter
--- OUTSIDE RECORDS SUMMARY | 2024-04-21 01:33 | External Medical Summary | Summary of Care ---
Author Name Unknown Organization [facility] Address [address] [place] [address] Phone [phone] Care Team Providers Care Logistics Lead Name Role Phone Edu Torre MD Primary Care Provider [phone] Reason for Visit * Reason Onset Date Comments Medication Refill 11/12/2023 Encounter Details Date Type Department Care Team (Late st Contact Info) Description 11/12/2023 Refill [facility] [address] [place] [address] Edu Torre MD [address], [place] [phone] Lumbar radiculopathy Allergies Active Allergy Reactions Criticality Noted Date Comments Prochlorperazine 07/30/2022 Morphine And Related 07/30/2022 documented as of this encounter (statuses as of 11/13/2023) Medications Medication Sig Dispensed Refills Start Date [...] mg capsule 90 Capsule 0 11/07/2023 Active HYDROcodone-Acetamino phen 5-325 MG Oral TabletIndications:Lum bar radiculopathy Take 1 Tablet by mouth every 6 hours as needed for Pain, Severe. 120 Tablet 0 11/10/2023 Active documented as of this encounter (statuses as of 11/13/2023) Active Problems Problem Noted Date Diagnosed Date [...] as of this encounter (statuses as of 11/13/2023) Resolved Problems Problem Noted Date Diagnosed Date Resolved Date Bipolar disorder 07/30/2022 11/15/2022 Overview: More recent.specified code listed on PL documented as of this encounter (statuses as of 11/13/2023) Immunizations Name Administration Dates Next Due Pneumococcal [...] encounter Miscellaneous Notes * Telephone Encounter - Andrews Lares [facility] - 11/13/2023 9:49 AM EST Refused Prescriptions: Disp Refills HYDROcodone-Acetaminophen 5-325 MG Oral Ta*120 Ta*0 Sig: Take 1 Tablet by mouth every 6 hours as needed for Pain, Severe.Refused By: ANDREWS LARES for Refusal: Too soon documented in this encounter Plan of Treatment Upcoming Encounters Date Type Department Care Team (Late st Contact Info) Description 12/09/2023 3:00 PM EDT Office Visit Neurology [facility] [address] [facility] [place] [address] [place], [address] [facility] [place] [address] 01/02/2024 2:00 PM EDT Telemedicine Psychiatry, [facility] [address] [facility] [place] [address] Yahaira Adams CRNP [address] [facility] [place] [address] 01/07/2024 10:30 AM EDT Office Visit Urology, [facility] [address] [facility] [place] [address] Arturo Ewing MD [address] [facility] [place] [address] [place] [address] 02/20/2024 2:00 PM EDT Office Visit Audiology [facility] [address] [facility] [place] [address] Zonia Marvin Au.D. 132 [facility] [place] [address] 03/10/2024 3:00 PM EDT [facility] Visit [facility] [address] [facility] [phone] Edu Torre MD [address] [facility] [address] 03/10/2024 4:20 PM EDT Telemedicine Neurology, [place] [address] [place] [address] [place] [address] Chung Santos MD [address] [place] [address] [place] [address] 04/28/2024 11:15 AM EDT Hospital Encounter ENDO [facility], Endoscopy Room [facility] [address] [place] [address] Tate Dye MD [address] [place] [address] 04/28/2024 11:15 AM EDT - 04/28/2024 12:15 PM EDT Surgery ENDO [facility], Endoscopy Room [facility] [address] [place] [phone] Tate Dye MD [address] [place] [address] COLONOSCOPY FLEXIBLE PROXIMAL DIAGNOSTIC Scheduled Procedures Name [...] D LEVEL ONCE IN A LIFETIME-USE SMARTSET# [id number] Completed 01/27/2023, 08/13/2022 Pneumococcal Vaccine: 65+ Years [...] hemorrhage documented in this encounter Care Teams Logistics Lead Relationship Specialty Start Date End Date January, Edu Camacho MD [address] [place] [address] PCP - General Family Medicine 07/30/22 documented as of this encounter
--- OUTSIDE RECORDS SUMMARY | 2024-04-21 01:34 | External Medical Summary | Summary of Care ---
Author Name Unknown Organization [facility] Address [address] [place] [address] Phone [phone] Care Team Providers Care Ski Technician Name Role Phone Edu Torre MD Primary Care Provider [phone] Reason for Referral * Evaluate & Treat - Unlimited Visits (Within 10 days (routine)) - Authorized Specialty Diagnoses / Procedures Referred By Contgabriel t Referred To Contact Neurology Diagnoses Migraine without aura and without status migrainosus, not intractable Edu Torre MD [address] [place] [address] Referral ID Status Reason Start Date Expiration Date Visits Requested Visits Authorized [id number] Authorized Specialty Services Required 11/04/2023 999 999 Question Answer Referral Priority Within 10 days (routine) Where should this appointment be scheduled? [facility] This patient already has care established with Neurology. Do not place this order. Please use Ask A Doc to expedite care. Acknowledge [facility] NEUROLOGY REFERRAL QUESTIONS Headache Has the patient tried 1 abortive and 1 preventative medication? Yes Comments Also has history of ?seizure that she is requesting referral for. Reason for Visit * Reason Onset Date Comments Referral 10/28/2023 Encounter Details Date Type Department Care Team ([facility] st Contact Info) Description 10/28/2023 Telephone [facility] [place] [address] [place] [facility] [place] [phone] Edu Torre MD [address] [facility] [place] [phone] Referral Allergies Active Allergy Reactions Criticality Noted Date Comments Prochlorperazine 07/30/2022 Morphine And Related 07/30/2022 documented as of this encounter (statuses as of 11/04/2023) Medications Medication Sig Dispensed Refills Start Date [...] EVERY EVENING 100 Tablet 2 09/02/2023 Active ARIPiprazole 10 MG Oral Tablet (Abilify)Indications: Bipolar I disorder, most recent episode depressed (HCC) Take 1 Tablet by mouth every night at bedtime. 90 Tablet 0 09/02/2023 Active DULoxetine HCl 20 MG Oral Capsule Delayed Release Particles (Cymbalta)Indications :Bipolar I disorder, most recent episode depressed (HCC),EVANS (generalized anxiety disorder) Take 1 Capsule by mouth every night at bedtime. With 30 mg capsule 90 Capsule 0 09/02/2023 Active Nitrofurantoin Monohyd Macro 100 [...] Active traZODone HCl 100 MG Oral Tablet (Desyrel) Take 1 Tablet by mouth at bedtime. 0 Active clonazePAM 0.5 MG Oral Tablet (KlonoPIN)Indications :Bipolar I disorder, most recent episode depressed (HCC) Take 1 Tablet by mouth in the morning and 1 Tablet in the evening. 60 Tablet 0 09/26/2023 Active Propranolol HCl 10 MG Oral Tablet (Inderal)Indications: EVANS (generalized anxiety disorder),Panic disorder Take one tablet in the AM and one tablet at noon 180 Tablet 0 09/26/2023 Active ARIPiprazole 2 MG Oral Tablet (Abilify)Indications: Bipolar I disorder, most recent episode depressed (HCC) Take 1 Tablet by mouth every night at bedtime With 10 mg tablet 90 Tablet 0 09/30/2023 Active DULoxetine HCl 30 MG Oral Capsule Delayed Release Particles (Cymbalta)Indications :EVASN (generalized anxiety disorder),Panic disorder Take 1 Capsule by mouth in the morning and 1 Capsule before bedtime. 180 Capsule 0 09/30/2023 Active HYDROcodone-Acetamino phen 5-325 MG Oral TabletIndications:Lum bar radiculopathy Take 1 Tablet by mouth every 6 hours as needed for severe pain 120 Tablet 0 10/03/2023 Active documented as of this encounter (statuses as of 11/04/2023) Active Problems Problem Noted Date Diagnosed Date [...] as of this encounter (statuses as of 11/04/2023) Resolved Problems Problem Noted Date Diagnosed Date Resolved Date Bipolar disorder 07/30/2022 11/15/2022 Overview: More recent.specified code listed on PL documented as of this encounter (statuses as of 11/04/2023) Immunizations Name Administration Dates Next Due Pneumococcal [...] Telephone Encounter - Beverley Goodman OSA - 11/04/2023 1:13 PM EST MyG message sent. 11/04/2023 * Telephone Encounter - Edu Torre MD - 11/04/2023 12:22 PM EST Referral placed. Edu Torre MD * Telephone Encounter - Dorothea Palomo LPN - 11/04/2023 10:50 AM EST Patient and pt's daughter Danni are aware and verbalized understanding. Danni states that this is for something else. Not the pt's cognitive state. States that this would be to discuss pt's headaches and past seizure (last one being a year ago). Pt also asks that Crystal is not called. All calls can come to the pt. Referral pended. Please advise. * Telephone Encounter - Elva Collins LPN - 10/29/2023 9:44 AM EST Left generic message on answering machine asking patient to return our call. There are 2 encounters when patients daughter calls back. Please address both. * Telephone Encounter - Edu Torre MD - 10/28/2023 5:35 PM EST Patient was seen in February 2023 by [facility]. They unfortunately did not have much to add as they felt there were too many confounding conditions for the patient that limit their ability to test her true cognitive ability. If a new concern has come to light or they want a second opinion at an outside neurology office I can place a referral. Edu Torre MD * Telephone Encounter - Beverley Goodman OSA - 10/28/2023 3:[address] referral if you feel it is appropriate. 10/28/2023 * Telephone Encounter - Maribeth Petersen OSA - 10/28/2023 2:02 PM EST Has the patient been seen for this problem? (Y/N)?: Yes If No, an appt needs to be scheduled before a referral will be placed (exception: proceed with referral request if referral request is for a yearly routine appointment with speciality) Patient Name: Lulu Zhong Patient Primary care provider: Edu Torre MD Does this need to be an insurance referral (Y/N)?: Yes If Yes, does the insurance referral need to be placed into the Mobile System [employer] system? Name of preferred specialist: Type of specialist: Neurologist Location of specialist: [facility] Specialist's Phone #: Specialist's Fax #: Reason for visit: Seizure in past/ Cognitive changes Date of visit: TBD documented in this encounter Plan of Treatment Upcoming Encounters Date Type Department Care Team (Late st Contact Info) Description 11/07/2023 2:00 PM EST Telemedicine Psychiatry, [facility] [address] [place] [address] Yahaira Adams CRNP [address] [place] [address] 11/11/2023 3:20 PM EST Office Visit [facility] [address] [place] [address] Edu Torre MD [address] [place] [address] 12/10/2023 11:15 AM EDT Hospital Encounter ENDO [facility], Endoscopy Room [facility] [address] [place] [phone] Robb Coto MD 12/10/2023 11:15 AM EDT - 12/10/2023 12:15 PM EDT Surgery ENDO [facility], Endoscopy Room [facility] [address] [place] [address] Robb Coto MD COLONOSCOPY FLEXIBLE PROXIMAL DIAGNOSTIC 01/07/2024 10:30 AM EDT Office Visit Urology, [facility] 132 [facility] [place] [address] Arturo Ewing MD [address] [place] [address] [place] [address] 01/13/2024 2:00 PM EDT Office Visit Audiology [facility] 132 [facility] [place] [address] Zonia Marvin AuShari 132 [facility] [place] [address] 03/10/2024 3:00 PM EDT Office Visit [facility] [address] [place] [address] Edu Torre MD [address] [place] [address] 03/10/2024 4:20 PM EDT Telemedicine Neurology, [place] [address] [place] [address] Chung Santos MD [address] [place] [address] Scheduled Procedures Name Priority Associated Diagnoses Date/Ti me COLONOSCOPY FLEXIBLE PROXIMA L DIAGNOSTIC Adenomatous polyp of colon, unspecified part of colon Gastroesophageal reflux disease with esophagitis without hemorrhage 12/10/2023 11:15 AM EDT ESOPHAGOGASTRODUODENOSCOPY ( EGD), FLEXIBLE, TRANSORAL, DIAGNOSTIC Adenomatous polyp of colon, unspecified part of colon Gastroesophageal reflux disease with esophagitis without hemorrhage 12/10/2023 11:15 AM EDT Scheduled Referrals Name Type Priority Associated Diagnoses Orde r Schedule NEUROLOGY REFERRAL OP Referral Within 10 days (routine) Migraine without aura and without status migrainosus, not intractable Ordered: 11/04/2023 Health Maintenance Due Date Last Done Comments [...] D LEVEL ONCE IN A LIFETIME-USE SMARTSET# [id number] Completed 01/27/2023, 08/13/2022 Pneumococcal Vaccine: 65+ Years [...] as of this encounter Visit Diagnoses Diagnosis Migraine without aura and without status migrainosus, not intractable- Primary Migraine without aura, without mention of intractable migraine without mention of status migrainosus Adenomatous polyp of colon, unspecified part of colon Gastroesophageal reflux disease with esophagitis without hemorrhage documented in this encounter Care Teams Ski Technician Relationship Specialty Start Date End Date January, Edu Camacho MD [address] [place] [address] PCP - General Family Medicine 07/30/22 documented as of this encounter
--- OUTSIDE RECORDS SUMMARY | 2024-04-21 01:34 | External Medical Summary | Summary of Care ---
Author Name Unknown Organization [facility] Address [address] [place] [address] Phone [phone] Care Team Providers Care Manager Long Term Care Name Role Phone Edu Torre MD Primary Care Provider Reason for Referral * Evaluate & Treat - Unlimited Visits (Within 10 days (routine)) - Authorized Specialty Diagnoses / Procedures Referred By Contgabriel t Referred To Contact Neurology Diagnoses Migraine without aura and without status migrainosus, not intractable Edu Torre MD [address] [place] [address] Referral ID Status Reason Start Date Expiration Date Visits Requested Visits Authorized [id number] Authorized Specialty Services Required 11/04/2023 999 999 Question Answer Referral Priority Within 10 days (routine) Where should this appointment be scheduled? [facility] This patient already has care established with Neurology. Do not place this order. Please use Ask A Doc to expedite care. Acknowledge [facility] NEUROLOGY REFERRAL QUESTIONS Headache Has the patient tried 1 abortive and 1 preventative medication? Yes Comments Also has history of ?seizure that she is requesting referral for. Reason for Visit * Reason Onset Date Comments Referral 10/28/2023 Encounter Details Date Type Department Care Team ([facility] st Contact Info) Description 10/28/2023 Telephone [facility] [place] [address] [place] [facility] [place] [phone] Edu Torre [facility] [address] [facility] [place] [phone] Referral Allergies Active Allergy Reactions Criticality Noted [...] encounter Miscellaneous Notes * Telephone Encounter - Edu Torre MD - 11/04/2023 12:22 PM EST Referral placed. Edu Torre MD * Telephone Encounter - Dorothea Palomo LPN - 11/04/2023 10:50 AM EST Patient and pt's daughter Danni are aware and verbalized understanding. Crystal states that this is for something else. [...] Patient was seen in February 2023 by [facility]. They unfortunately did not have much [...] referral need to be placed into the [employer] system? Name of preferred specialist: Type of specialist: Neurologist [facility] of specialist: [facility] Phone #: Specialist's Fax #: Reason for visit: Seizure in past/ Cognitive changes Date of visit: TBD documented in this encounter Plan of Treatment Upcoming Encounters Date Type Department Care Team (Late st Contact Info) Description 11/07/2023 2:00 PM EST Telemedicine Psychiatry, [facility] [address] [facility] [address] [place], DEWAYNE Ruiz [address] [facility] [address] 11/11/2023 3:20 PM EST Office Visit [facility] [address] [facility] [phone] Edu Torre MD [address] [place] [address] 12/10/2023 11:15 AM EDT Hospital Encounter ENDO [facility], Endoscopy Room [facility] [address] [facility] [place] [address] Robb Coto MD 12/10/2023 11:15 AM EDT - 12/10/2023 12:15 PM EDT Surgery ENDO [facility], Endoscopy Room [facility] 132 [facility] [place] [phone] Robb Coto MD COLONOSCOPY FLEXIBLE PROXIMAL DIAGNOSTIC 01/07/2024 10:30 AM EDT Office Visit Urology, [facility] 132 [facility] [place] [address] Arturo Ewing MD [address] [place] [address] [place] [address] 01/13/2024 2:00 PM EDT Office Visit Audiology [facility] 132 [facility] [place] [address] Zonia Marvin Au.D. 132 [place] [address] 03/10/2024 3:00 PM EDT Office Visit [facility] [address] [place] [address] Edu Torre MD [address] [place] [address] 03/10/2024 4:20 PM EDT Telemedicine Neurology, [place] [address] [place] [address] Chung Santos MD [address] [place] [address] Scheduled Procedures Name Priority Associated Diagnoses Date/Ti [...] D LEVEL ONCE IN A LIFETIME-USE SMARTSET# [id number] Completed 01/27/2023, 08/13/2022 Pneumococcal Vaccine: 65+ Years [...] documented in this encounter Care Teams Manager Long Term Care Relationship Specialty Start Date End Date January, Edu Camacho MD [address] [place] [address] PCP - General Family Medicine 07/30/22 documented as of this encounter
--- OUTSIDE RECORDS SUMMARY | 2024-04-21 01:34 | External Medical Summary | Summary of Care ---
Author Name Unknown Organization [facility] Address [address] [place] [address] Phone [phone] Care Team Providers Care Portfolio Architect Name Role Phone Andrés Nguyen MD Primary Care Provider [phone] Reason for Visit * Reason Onset Date Comments Medication Refill 11/08/2023 Encounter Details Date Type Department Care Team (Late st Contact Info) Description 11/08/2023 Refill [facility] [address] [place] [address] Andrés Nguyen MD [address] [place], [place] [phone] Lumbar radiculopathy Allergies Active Allergy Reactions Criticality Noted Date Comments Prochlorperazine 07/30/2022 Morphine And Related 07/30/2022 documented as of this encounter (statuses as of 11/10/2023) Medications Medication Sig Dispensed Refills Start Date [...] as of this encounter (statuses as of 11/10/2023) Active Problems Problem Noted Date Diagnosed Date [...] as of this encounter (statuses as of 11/10/2023) Resolved Problems Problem Noted Date Diagnosed Date Resolved Date Bipolar disorder 07/30/2022 11/15/2022 Overview: More recent.specified code listed on PL documented as of this encounter (statuses as of 11/10/2023) Immunizations Name Administration Dates Next Due Pneumococcal [...] NGUYEN------- * Telephone Encounter - Jaja Hammonds [facility] - 11/09/2023 8:12 PM ESTPending Prescriptions: Disp Refills HYDROcodone-Acetaminophen 5-325 MG Oral Ta*120 Ta*0 Sig: Take 1 Tablet by mouth every 6 hours as needed for Pain, Severe. * Telephone Encounter - Jaja Hammonds [facility] - 11/09/2023 8:12 PM EST I have reviewed the patients controlled substance dispensing history in the Prescription Drug Monitoring Program in compliance with the [facility] regulations before prescribing a controlled substance. PDMP checked on 11/09/2023. Pending Prescriptions: Disp Refills HYDROcodone-Acetaminophen 5-325 MG Oral T*120 Ta*0 Sig: Take 1 Tablet by mouth every 6 hours as needed for Pain, Severe. Last Visit: 09/12/2023 (in office), 08/27/2022 (telemedicine) Next Visit: 11/11/2023 Date medication was last filled: 10/04/23 Date medication is due for refill: 11/02/23 Pharmacy: [id number] Is this request for a controlled substance? Yes and Urine Drug Screen Not completed Toxicology results: Results for orders placed or performed in visit on 09/06/22 PAIN MANAGEMENT DRUG PANEL, URINE W/ INTERPRETATION Result Value Compliance Interpretation Based on the medication information provided and from [facility]: Please note hydrocodone and hydrocodone [...] Clinical Pharmacy Services ([facility]) 11/09/23 8:12 PM [phone] documented in this encounter Plan of Treatment Upcoming Encounters Date Type Department Care Team (Late st Contact Info) Description 11/11/2023 3:20 PM EST Office Visit [facility] [address] [place] [phone] JanuaryAndrés MD [address] [place] [address] 12/10/2023 11:15 AM EDT Hospital Encounter ENDO [facility], Endoscopy Room [facility] [address] [place] [address] Hafsa Richard DO [address] [place] [address] 12/10/2023 11:15 AM EDT - 12/10/2023 12:15 PM EDT Surgery ENDO [facility], Endoscopy Room [facility] [address] [facility] [place] [phone] Hafsa Richard DO [address] [place] [address] COLONOSCOPY FLEXIBLE PROXIMAL DIAGNOSTIC 01/02/2024 2:00 PM EDT Telemedicine Psychiatry, [facility] [address] [place] [address] Yahaira Adams CRNP [address] [place] [address] 01/07/2024 10:30 AM EDT Office Visit Urology, [facility] [place] [address] Arturo Ewing MD 27 [facility] [address] [place] [address] 02/20/2024 2:00 PM EDT Office Visit Audiology [facility] 132 [facility] [place] [address] Zonia Marvin Au.D. 132 [facility] [place] [address] 03/10/2024 3:00 PM EDT Office Visit [facility] [address] [place] [phone] Andrés Nguyen MD [address] [place] [address] 03/10/2024 4:20 PM EDT Telemedicine Neurology, [place] [address] [place] [address] Chung Santos MD [address] [place] [address] Scheduled Procedures Name Priority Associated Diagnoses Date/Ti ia COLONOSCOPY FLEXIBLE PROXIMA L DIAGNOSTIC Adenomatous polyp of colon, unspecified part of colon Gastroesophageal reflux disease with esophagitis without hemorrhage 12/10/2023 11:15 AM EDT ESOPHAGOGASTRODUODENOSCOPY ( EGD), FLEXIBLE, TRANSORAL, DIAGNOSTIC Adenomatous polyp of colon, unspecified part of colon Gastroesophageal reflux disease with esophagitis without hemorrhage 12/10/2023 11:15 AM EDT Health Maintenance Due Date [...] D LEVEL ONCE IN A LIFETIME-USE SMARTSET# [id number] Completed 01/27/2023, 08/13/2022 Pneumococcal Vaccine: 65+ Years [...] hemorrhage documented in this encounter Care Teams Portfolio Architect Relationship Specialty Start Date End Date January, Andrés Camacho MD [address] [place] [address] PCP - General Family Medicine 07/30/22 documented as of this encounter
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
--- OUTSIDE RECORDS SUMMARY | 2024-04-21 01:34 | External Medical Summary | Summary of Care ---
Author Name Unknown Organization [facility] Address [address] [place] [address] Phone [phone] Care Team Providers Care Supervisor Transcribing Operators Name Role Phone Edu Torre MD Primary Care Provider [phone] Reason for Visit * Reason Onset Date Comments Medication Refill 11/01/2023 Encounter Details Date Type Department Care Team (Late st Contact Info) Description 11/01/2023 Refill Urology [facility] Villegas [address] [place] [address] [place] [phone] Arturo Ewing MD [address] [place] [address] [place] [address] Allergies Active Allergy Reactions Criticality Noted Date Comments Prochlorperazine 07/30/2022 Morphine And Related 07/30/2022 documented as of this encounter (statuses as of 11/03/2023) Medications Medication Sig Dispensed Refills Start Date [...] as of this encounter (statuses as of 11/03/2023) Active Problems Problem Noted Date Diagnosed Date [...] as of this encounter (statuses as of 11/03/2023) Resolved Problems Problem Noted Date Diagnosed Date Resolved Date Bipolar disorder 07/30/2022 11/15/2022 Overview: More recent.specified code listed on PL documented as of this encounter (statuses as of 11/03/2023) Immunizations Name Administration Dates Next Due Pneumococcal [...] encounter Miscellaneous Notes * Telephone Encounter - Chelita Giles LPN - 11/03/2023 8:54 AM ESTRefused Prescriptions: Disp Refills Nitrofurantoin Monohyd Macro 100 MG Oral C*90 Cap*1 Sig: Take 1Capsule by mouth in the morning and 1 Capsule before bedtime. With food..Refused By: Marie GILESon for Refusal: Refill Not Appropriate documented in this encounter Plan of Treatment Upcoming Encounters Date Type Department Care Team (Late st Contact Info) Description 11/07/2023 2:00 PM EST Telemedicine Psychiatry, [facility] [address] [facility] [place] [address] Adams, YahairaDEWAYNE Thomas [address] [place] [address] 11/11/2023 3:20 PM EST Office Visit [facility] [address] [facility], [place] [phone] Edu Torre MD [address] [place] [address] 12/10/2023 11:15 AM EDT Hospital Encounter ENDO [facility], Endoscopy Room [facility] [address] [facility] [place] [phone] Robb Coto MD 12/10/2023 11:15 AM EDT - 12/10/2023 12:15 PM EDT Surgery ENDO [facility], Endoscopy Room [facility] [address] [place] [phone] Robb Coto MD COLONOSCOPY FLEXIBLE PROXIMAL DIAGNOSTIC 01/07/2024 10:30 AM EDT Office Visit Urology, [facility] [address] [facility] [place] [address] Arturo Ewing MD [address] [place] [address] [place] [address] 01/13/2024 2:00 PM EDT Office Visit Aud[facility] [place] [address] Zonia Marvin Au.D. [address] [place] [address] 03/10/2024 3:00 PM EDT Office Visit [facility] [address] [place] [facility] [place] [phone] JanuaryEdu MD [address] [place], [place] [phone] 03/10/2024 4:20 PM EDT Telemedicine Neurology, [place] [facility] [address] [address] Chung Santos MD [address] [place] [address] Scheduled Procedures Name Priority Associated Diagnoses Date/Ti [...] D LEVEL ONCE IN A LIFETIME-USE SMARTSET# [id number] Completed 01/27/2023, 08/13/2022 Pneumococcal Vaccine: 65+ Years [...] as of this encounter Care Teams Supervisor Transcribing Operators Relationship Specialty Start Date End Date January, Edu Camacho MD [address] [place] [address] PCP - General Family Medicine 07/30/22 documented as of this encounter
--- OUTSIDE RECORDS SUMMARY | 2024-04-21 01:34 | External Medical Summary | Summary of Care ---
Author Name Unknown Organization [facility] Address [address] [place] [address] Phone [phone] Care Team Providers Care Automotive Engineering Teacher Name Role Phone Edu Torre MD Primary Care Provider [phone] Reason for Visit * Reason Onset Date Comments Medication Refill 10/28/2023 Encounter Details Date Type Department Care Team (Late st Contact Info) Description 10/28/2023 Refill Urology [facility] Villegas [address] [place] [address] [place] [phone] Arturo Davis MD [address] [place] [address] [place] [address] Allergies Active Allergy Reactions Criticality Noted Date Comments Prochlorperazine 07/30/2022 Morphine And Related 07/30/2022 documented as of this encounter (statuses as of 10/29/2023) Medications Medication Sig Dispensed Refills Start Date [...] as of this encounter (statuses as of 10/29/2023) Active Problems Problem Noted Date Diagnosed Date [...] as of this encounter (statuses as of 10/29/2023) Resolved Problems Problem Noted Date Diagnosed Date Resolved Date Bipolar disorder 07/30/2022 11/15/2022 Overview: More recent.specified code listed on PL documented as of this encounter (statuses as of 10/29/2023) Immunizations Name Administration Dates Next Due Pneumococcal [...] encounter Miscellaneous Notes * Telephone Encounter - Jordin Zepeda OSA - 10/29/2023 3:03 PM EST Patient's appt moved to 11/05/23. * Telephone Encounter - Arturo Davis MD - 10/29/2023 7:49 AM EST Patient provided with 6 months of medication one-month ago, unclear why refill is being requested, declined. Patient's stone surgery was canceled, is currently scheduled for follow-up in March. Follow-up should be moved to next available in- person to check on the patient's history of urinary tract infection. Thanks, HM * Telephone Encounter - Arturo Davis MD - 10/29/2023 7:49 AM EST Refused Prescriptions: Disp Refills Nitrofurantoin Monohyd Macro 100 MG Oral C*90 Cap*1 Sig: Take 1 Capsule by mouth in the morning and 1 Capsule before bedtime. With food.. Refused By: ARTURO DAVIS Reason for Refusal: Too soon * Telephone Encounter - Chelita Infante LPN - 10/28/2023 1:32 PM ESTPending Prescriptions: Disp Refills Nitrofurantoin Monohyd Macro 100 MG Oral C*90 Cap*1 Sig: Take 1 Capsule by mouth in the morning and 1 Capsule before bedtime. With food.. * Telephone Encounter - Chelita Infante LPN - 10/28/2023 1:30 PM EST Patient requesting refill of Nitrofurantoin. 09/05/2023 04/21/2024 Review of patient's allergies indicates: Allergen Reactions Compazine [Prochlorperazine] Morphine And Related documented in this encounter Plan of Treatment Upcoming Encounters Date Type Department Care Team (Late st Contact Info) Description 11/05/2023 9:30 AM EST Office Visit Urology, [facility] [address] [facility] [place] [address] Arturo Davis MD [address] [place] [address] [place] [address] 11/07/2023 2:00 PM EST Telemedicine Psychiatry, [facility] [address] [place] [address] Yahaira Adams CRNP [address] [place] [address] 11/11/2023 3:20 PM EST Office Visit [address] [phone] Edu Torre MD [address] [place] [address] 12/10/2023 11:15 AM EDT Hospital Encounter ENDO [facility], Endoscopy Room [facility] [address] [facility] [place] [phone] Robb Coto MD 12/10/2023 11:15 AM EDT - 12/10/2023 12:15 PM EDT Surgery ENDO [facility], Endoscopy Room [facility] [address] [facility] [place] [phone] Robb Coto MD COLONOSCOPY FLEXIBLE PROXIMAL DIAGNOSTIC 01/13/2024 2:00 PM EDT Office Visit Audiology [facility] [address] [facility] [place] [address] Zonia aMrvin Au.D. [address] [place] [address] 03/10/2024 3:00 PM EDT Office Visit [address] [phone] Edu Torre [facility] [address] [facility] [address] 03/10/2024 4:20 PM EDT Telemedicine Neurology, [place] [facility] [address] [place] [address] Chung Santos MD [address] [place] [place] [address] Scheduled Procedures Name Priority Associated Diagnoses Date/Ti [...] D LEVEL ONCE IN A LIFETIME-USE SMARTSET# [id number] Completed 01/27/2023, 08/13/2022 Pneumococcal Vaccine: 65+ Years [...] filedocumented as of this encounter Care Teams Automotive Engineering Teacher Relationship Specialty Start Date End Date January, Edu Camacho MD [address] [place] [address] PCP - General Family Medicine 07/30/22 documented as of this encounter
[2024-04-21] MEDS: KETOROLAC TROMETHAMINE 15 MG/ML VIAL IV ONE (01:35)
[2024-04-21 01:46] LABS: Appearance Urine Clear (Clear); Bilirubin Urine Negative (Negative); Blood Urine Negative (Negative); Color Urine Yellow; Glucose Urine UA Negative (Negative); Ketones Urine Trace (Negative); Leukocyte Esterase Urine Negative (Negative); Nitrite Urine Negative (Negative); Protein Urine Negative (Negative); Specific Gravity Urine 1.018 (1.000-1.030); Urobilinogen Urine Negative (Negative); pH Urine 6.5 (4.5-7.5)
[2024-04-21] MEDS ORDERED: POLYETHYLENE (MIRALAX) 17 GM PACK PO PRN (01:56)
[2024-04-21] MEDS: tiZANidine HCL 4 MG TABLET PO STA (01:56)
[2024-04-21 02:58] LABS: Amphetamines+Metham, Urine Neg (Neg); Barbiturates, Urine Neg (Neg); Benzodiazepine, Urine Neg (Neg); Cocaine, Urine Neg (Neg); Fentanyl, Urine Neg (Neg); MDMA (Ecstacy), Urine Pos (Neg); Marijuana, Urine Neg (Neg); Methadone, Urine Neg (Neg); Opiate, Urine Neg (Neg); Phencyclidine, Urine Neg (Neg)
[2024-04-21] MEDS: ATROPINE SULFATE 0.1 MG/ML 10ML SYR IV STA ×2 (04:47→05:52)
[2024-04-21 05:28] LABS: BUN Creatinine Ratio 18.4 (10-20); Calcium 8.4 mg/dl (8.6-10.3); Creatinine Clr Calc Pharmacy 59.5 ml/min; Est GFR (African American) 92.1 ml/min; Est GFR (Non-African American) 79.5 ml/min; Potassium 3.9 mmol/L (3.5-5.1)
[2024-04-21] MEDS: LACTATED RINGER'S 1,000 ML IV ONE (05:52)
[2024-04-21] MEDS: PANTOprazole 40 MG TAB PO SCH (06:10)
[2024-04-21 06:16] LABS: Basophils # (auto) 0.05 K/uL (0.00-0.20); Basophils % (auto) 0.7 %; Hematocrit (blood only) 35.6 % (37.0-47.0); Hemoglobin 11.7 g/dl (12.0-16.0); Immature Granulocytes # (auto) 0.02 K/uL (0.01-0.20); Immature Granulocytes % (auto) 0.3 %; Lymphocytes # (auto) 2.77 K/uL (1.20-3.40); Lymphocytes % (auto) 37.6 %; Mean Corpuscular Hemoglobin 30.6 pg (25.0-34.0); Mean Corpuscular Hgb Conc 32.9 g/dL (32.0-36.0); Mean Corpuscular Volume 93.2 fL (80.0-100.0); Mean Platelet Volume 10.5 fL (9.4-12.4); Monocytes # (auto) 0.68 K/uL (0.11-0.59); Monocytes % (auto) 9.2 %; Neutrophils # (auto) 3.85 K/uL (1.40-6.50); Neutrophils % (auto) 52.2 %; Platelet Count 123 K/uL (130-400); Platelet Estimate Normal (Normal); RBC Morphology Unremarkable; RDW Coefficient of Variation 12.4 % (11.5-14.5); RDW Standard Deviation 42.4 fL (36.4-46.3); Red Blood Count 3.82 M/uL (4.20-5.40); White Blood Count 7.37 K/ul (4.8-10.8)
--- NOTE | 2024-04-21 06:55 | XRay Report ---
XR chest 1V portable CLINICAL HISTORY: Chest pain, nonspecific TECHNIQUE: Single frontal radiograph of the chest was obtained. Comparison: Comparison is made to chest radiograph 02/18/2023 FINDINGS: No lines and tubes are seen. The cardiomediastinal silhouette is normal. The lungs are clear. No evid ence of pleural effusion or pneumothorax. IMPRESSION: No acute chest disease. ACT 112: Negative or not required by law. Electronically signed by: Aric Wilkins M.D. 04/21/2024 6:54 AM
[2024-04-21 08:13] LABS: Estimated Average Glucose 120 mg/dl; Hemoglobin A1C 5.8 % (4.5-5.6)
[2024-04-21] MEDS: VIBEGRON 75 MG TAB PO SCH (08:50)
[2024-04-21] MEDS: DULoxetine HCL 30 MG CAP PO SCH (08:50)
[2024-04-21] MEDS: clonazePAM 1 MG TAB PO SCH (08:50)
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
--- NOTE | 2024-04-21 18:56 | Communication Note ---
Date of Service: April 21, 2024 Patient laying in bed. Denies any acute concerns. Reports significant stress at home with daughter/grandson Poison control contacted nurse--no new updates or further medical intervention at this time Plan for pursuit of inpatient psych services
--- NOTE | 2024-04-21 19:21 | CT Scan Report ---
Exam(s): CT C SPINE EXAM: CT Cervical Spine Without Intravenous Contrast CLINICAL HISTORY: Reason for exam: pain. TECHNIQUE: Axial computed tomography images of the cervical spine without intravenous contrast. Automated exposure control was utilized for the study. A dose lowering technique was utilized adhering to the principles of ALARA. COMPARISON: No relevant prior studies available. FINDINGS: Vertebrae: Unremarkable. No acute fracture. Discs/spinal canal/neural foramina: Mild degenerative changes. No severe central canal stenosis. Soft tissues: Unremarkable. IMPRESSION: 1. No evidence of acute fracture or malalignment. 2. Mild degenerative changes. Electronically signed by: Stefany Etienne M.D. 04/21/24 02:06 AM
[2024-04-21] MEDS: TOPIRAMATE 50 MG TAB PO SCH (20:55)
[2024-04-21] MEDS: DULoxetine HCL 20 MG CAP PO SCH (20:55)
[2024-04-21] MEDS: traZODone HCL 100 MG TAB PO SCH (20:55)
[2024-04-21] MEDS: CETIRIZINE HCL 10 MG TABLET PO SCH (20:56)
[2024-04-21] MEDS: ARIPiprazole 15 MG TAB PO SCH (20:56)
--- NOTE | 2024-04-21 21:52 | Electrocardiogram Report ---
Test Reason : Blood Pressure : / mmHG Vent. Rate : 063 BPM Atrial Rate : 063 BPM P-R Int : 180 ms QRS Dur : 104 ms QT Int : 412 ms P-R-T Axes : 071 -19 049 degrees QTc Int : 421 ms Normal sinus rhythm Normal ECG When compared with ECG of 18-FEB-2023 13:20, Questionable change in QRS duration Confirmed by Lj Simon ([id number]) on 04/21/2024 9:52:05 PM Referred By: REFERRED SELF Confirmed By:Lj Simon
--- NOTE | 2024-04-21 21:52 | Electrocardiogram Report ---
Test Reason : Blood Pressure : / mmHG Vent. Rate : 057 BPM Atrial Rate : 057 BPM P-R Int : 178 ms QRS Dur : 090 ms QT Int : 438 ms P-R-T Axes : 041 053 011 degrees QTc Int : 426 ms Sinus bradycardia Otherwise normal ECG When compared with ECG of 20-APR-2024 21:41, Questionable change in QRS axis T wave inversion now evident in Inferior leads Confirmed by Lj Simon ([id number]) on 04/21/2024 9:52:24 PM Referred By: REFERRED SELF Confirmed By:Lj Simon
[2024-04-22 06:21] LABS: Hematocrit (blood only) 37.5 % (37.0-47.0); Hemoglobin 12.5 g/dl (12.0-16.0); Mean Corpuscular Hemoglobin 30.7 pg (25.0-34.0); Mean Corpuscular Hgb Conc 33.3 g/dL (32.0-36.0); Mean Corpuscular Volume 92.1 fL (80.0-100.0); Mean Platelet Volume 9.9 fL (9.4-12.4); Platelet Count 162 K/uL (130-400); RDW Coefficient of Variation 12.4 % (11.5-14.5); RDW Standard Deviation 41.8 fL (36.4-46.3); Red Blood Count 4.07 M/uL (4.20-5.40); White Blood Count 6.44 K/ul (4.8-10.8)
[2024-04-22 06:40] LABS: BUN Creatinine Ratio 16.7 (10-20); Calcium 8.7 mg/dl (8.6-10.3); Creatinine Clr Calc Pharmacy 53.8 ml/min; Est GFR (African American) 81.6 ml/min; Est GFR (Non-African American) 70.4 ml/min; Magnesium 1.9 mg/dl (1.7-2.4); Phosphorus 3.1 mg/dl (2.5-4.9); Potassium 3.4 mmol/L (3.5-5.1)
[2024-04-22] MEDS: POTASSIUM CHLORIDE CRTAB 20 MEQ TABCR PO STA (08:14)
--- NOTE | 2024-04-22 10:02 | CT Scan Report ---
HEAD CT NONCONTRAST CT DOSE: 547.75 mGy.cm HISTORY: s/p overdose TECHNIQUE: Multiaxial CT images of the head were performed without the use of intravenous contrast. A utomated exposure control was utilized for this study. A dose lowering technique was utilized adheri ng to the principles of ALARA. Comparison: Head CT 02/18/2023. Findings: The paranasal sinuses and mastoid air cells are clear. The calvarium and skull base are int act. There is no mass, hematoma, midline shift, acute infarct. White matter hypodensity is nonspecifi c but suggestive of microvascular ischemic change. The ventricles and sulci demonstrate mild age-rela buster involutional changes. Impression: No significant change compared to the prior study. No acute intracranial abnormality. ACT 112: Negative or not required by law. Electronically signed by: Feliciano Vera M.D. 04/22/2024 10:01 AM
[2024-04-22] MEDS: DICLOFENAC SOD 1% GEL 100 GM TUBE EXT SCH (10:12)
--- NOTE | 2024-04-22 10:46 | CT Scan Report ---
CT head/brain wo con CLINICAL HISTORY: 68 years-old Female with s/p fall, right side head strike. Acute head trauma statu s post fall TECHNIQUE: Multiple axial CT images of the head were obtained without contrast. A dose lowering tech nique was utilized adhering to the principles of ALARA. CT DOSE: 625.8 mGy.cm COMPARISON: Head CT of same day at 8:00 AM FINDINGS: No acute intracranial hemorrhage, midline shift, intracranial mass, hydrocephalus, territorial ischem ia or abnormal extra-axial collection. White matter hypodensity is nonspecific but suggestive of micr ovascular ischemic change. The calvarium is intact. The paranasal sinuses, mastoid air cells, and middle ear cavities are clear . IMPRESSION: No acute intracranial abnormality. ACT 112: Negative or not required by law. The above report was generated using voice recognition software. It may contain grammatical, syntax o r spelling errors. Electronically signed by: Jordin Cruz M.D. 04/22/2024 10:43 AM
--- NOTE | 2024-04-22 13:25 | XRay Report ---
XR knee RT 1 or 2V routine CLINICAL HISTORY: s/p fall right knee strike COMPARISON STUDY: Right tibia/fibular 01/02/2023. FINDINGS: No acute fracture or dislocation within the right knee. No knee effusion. Soft tissues are unremarkable. There is a lateral cortical plate and screws transfixing an old, healed lateral tibial plateau fracture. The hardware appears intact. Chronic depression remaining at the lateral tibial arpit teau which is unchanged. Chondrocalcinosis and moderate to severe degenerative changes within the rig ht knee. IMPRESSION: 1. No acute fracture or dislocation within the right knee. 2. Old posttraumatic/postoperative changes within the proximal tibia. ACT 112: Negative or not required by law. Electronically signed by: Feliciano Vera M.D. 04/22/2024 1:23 PM
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
[2024-04-22] MEDS: ENOXAPARIN INJ 40 MG/0.4 ML SYR SQ SCH (17:19)
[2024-04-22] MEDS ORDERED: NON-FORMULARY MEDICATION (Cranberry Extract-Vitamin C [Azo Cranberry Plus Vit C] 250-60 mg PO PRN (23:16)
[2024-04-22] MEDS: HYDROCODONE/ACETAMOPHEN 5/325MG TAB PO PRN (23:26)
--- OUTSIDE RECORDS SUMMARY | 2024-04-23 01:21 | External Medical Summary | Summary of Care ---
Author Name Unknown Organization [facility] Address [address] [place] [address] Phone [phone] Care Team Providers Care High Climber Name Role Phone Edu Torre MD Primary Care Provider [phone] Reason for Visit * Reason Comments Medication Refill Encounter Details Date Type Department Care Team (Late st Contact Info) Description 04/18/2024 Refill Psychiatry, [facility] [address] [facility] [address] Yahaira Adams CRNP [address] [place] [address] Bipolar I disorder, most recent episode depressed (HCC) Allergies Active Allergy Reactions Criticality Noted Date Comments Prochlorperazine Other (Please comment) Medium 07/30/2022 Generalized weakness Morphine And Codeine Nausea/vomiting,Oth er (Please comment) Medium 07/30/2022 Room spinning as well documented as of this encounter (statuses as of 04/21/2024) Medications Medication Sig Dispensed Refills Start Date [...] Capsule before bedtime. 180 Capsule 4 Active DULoxetine HCl 20 MG Oral [...] for severe pain 120 Tablet 4 Active clonazePAM 0.5 MG Oral Tablet (KlonoPIN)Indication s:Bipolar I disorder, most recent episode depressed (HCC) Take 1 Tablet by mouth in the morning and 1 Tablet in the evening. 60 Tablet 4 Active clonazePAM 0.5 MG Oral Tablet (KlonoPIN)Indication s:Bipolar I disorder, most recent episode depressed (HCC) Take 1 Tablet by mouth in the morning and 1 Tablet in the evening. 60 Tablet 4 04/18/20 24 Discontinu ed(Refill) documented as of this encounter (statuses as of 04/21/2024) Active Problems Problem Noted Date Diagnosed Date [...] as of this encounter (statuses as of 04/21/2024) Resolved Problems Problem Noted Date Diagnosed Date Resolved Date Bipolar disorder 07/30/2022 11/15/2022 Overview: More recent.specified code listed on PL documented as of this encounter (statuses as of 04/21/2024) Immunizations Name Administration Dates Next Due Pneumococcal [...] Telephone Encounter - Yahaira Adams CRNP - 04/21/2024 5:28 PM EDTSigned Prescriptions: Disp Refills clonazePAM 0.5 MG Oral Tablet (KlonoPIN) 60 Tab*0 Sig: Take 1 Tablet by mouth in the morning and 1 Tablet in the evening.Authorizing Provider: YAHAIRA ADAMS--- * Telephone Encounter - Yahaira Adams CRNP - 04/21/2024 5:27 PM EDTSigned Prescriptions: Disp Refills clonazePAM 0.5 MG Oral Tablet (KlonoPIN) 60 Tab*0 Sig: Take 1 Tablet by mouth in the morning and 1 Tablet in the evening. Authorizing Provider: YAHAIRA ADAMS * Telephone Encounter - Anais Lucas LPN - 04/21/2024 10:45 AM EDTPending Prescriptions: Disp Refills clonazePAM 0.5 MG Oral Tablet (KlonoPIN) 60 Tab*0 Sig: Take 1 Tablet by mouth in the morning and 1 Tablet in the evening. * Telephone Encounter - Anais Lucas LPN - 04/21/2024 10:44 AM EDT Pharmacy requesting refill on klonopin. Medication was last filled on 02/13/24 with 0 refills. Patient last seen on 04/18/24 with return appointment scheduled for 05/03/24. Patient had 0 cancelled appointments and 0 NO SHOW appointments. * Telephone Encounter - Alba Guido CPhT - 04/20/2024 12:35 PM EDT Did you pend patient's preferred pharmacy and medication before forwarding?yes Pharmacy: [facility] Pending Prescriptions: Disp Refills clonazePAM 0.5 MG Oral Tablet (KlonoPIN) 60 Tab*0 Sig: Take 1 Tablet by mouth in the morning and 1 Tablet in the evening. Last Visit: 03/10/2023 (in office), 02/13/2024 (telemedicine) Next Visit: 05/03/2024 If no future appointments scheduled, and last appointment is greater than a year ago, please schedule patient for a follow-up appointment Last date the medication was ordered: 02/13/24 Is this request for a controlled substance?Yes, What was the last refill date 02/13/24 w/ quantity 60 and dosage bid and Urine Drug Screen Not completed Urine Drug Screen: Results for orders placed or performed in visit on 09/06/22 PAIN MANAGEMENT DRUG PANEL, URINE W/ INTERPRETATION Result Value Compliance Interpretation Based on the medication information provided and from [facility]: Please note hydrocodone and hydrocodone metabolite, [...] [facility] [address] [place] [id number] Tate Dye MD [address] [place] [address] 04/28/2024 11:30 AM EDT - 04/28/2024 12:15 PM EDT Surgery ENDO [facility], Endoscopy Room [facility] [address] [place] [id number] Tate Dye MD [address] [place] [address] COLONOSCOPY FLEXIBLE PROXIMAL DIAGNOSTIC 05/03/2024 2:30 PM EDT Office Visit Psychiatry, [facility] [address] [facility] [place] [address] AdamsYahaira CRNP [address] [address] 05/07/2024 2:00 PM EDT Office Visit Audiology [facility] [address] [place] [address] Zonia Marvin Au.D. [address] [place] [address] 05/08/2024 2:15 PM EDT Imaging Radiology [address] [place] [address] 06/23/2024 2:00 PM EDT Office Visit [place] [address] [facility] [address] January, Edu Camacho MD [address] [place] [facility] [place] [address] 07/21/2024 3:00 PM EDT Office Visit Urology, [facility] [address] [place] [address] Arturo Ewing MD [address] [place] [address] Scheduled Procedures Name Priority Associated Diagnoses Date/Ti [...] D LEVEL ONCE IN A LIFETIME-USE SMARTSET# [id number] Completed 01/27/2023, 08/13/2022 Pneumococcal Vaccine: 65+ Years [...] hemorrhage documented in this encounter Care Teams High Climber Relationship Specialty Start Date End Date January, Edu Camacho MD [address] [place] [address] PCP - General Family Medicine 07/30/22 documented as of this encounter
[2024-04-23 07:44] LABS: Hematocrit (blood only) 39.2 % (37.0-47.0); Hemoglobin 13.1 g/dl (12.0-16.0); Mean Corpuscular Hemoglobin 31.3 pg (25.0-34.0); Mean Corpuscular Hgb Conc 33.4 g/dL (32.0-36.0); Mean Corpuscular Volume 93.6 fL (80.0-100.0); Mean Platelet Volume 9.7 fL (9.4-12.4); Platelet Count 159 K/uL (130-400); RDW Coefficient of Variation 12.7 % (11.5-14.5); RDW Standard Deviation 43.2 fL (36.4-46.3); Red Blood Count 4.19 M/uL (4.20-5.40); White Blood Count 5.61 K/ul (4.8-10.8)
[2024-04-23 07:55] LABS: BUN Creatinine Ratio 20.9 (10-20); Calcium 8.6 mg/dl (8.6-10.3); Creatinine Clr Calc Pharmacy 41.1 ml/min; Est GFR (African American) 58.9 ml/min; Est GFR (Non-African American) 50.8 ml/min; Potassium 3.8 mmol/L (3.5-5.1)
[2024-04-23] MEDS: CALCIUM POLYCARBOPHIL 625MG TAB PO SCH (09:01)
--- NOTE | 2024-04-23 14:32 | Psychiatric Progress Note ---
Date of Service April 23, 2024 Impression / Recommendations Impression Lulu Zhong is a 68-year-old female history of generalized anxiety disorder, MDD with anxious distress, migraines, cognitive impairment, tardive dyskinesia who presents after an intentional overdose of her propranolol with concerns of being a suicide attempt. Ingestion occurred in the setting of familial conflict with daughter. A: Ongoing depression and anxiety with confusion/memory deficits and speech latency. Geriatric psychiatry bed search continues. Unclear if her recollection of driving factors behind suicide attempt are accurate. Sounds like history of cluster B PD prior to onset of major neurocognitive disorder. She remains on a 302 commitment. The patient remains hospitalized on a completed 302 involuntary commitment, which if not extended, will on 04/27/2024 at 0924. This patient must remain on safety precautions with a 1-on-1 and is unable to leave the hospital AMA. (1) Suicide attempt by drug overdose: (2) MDD (major depressive disorder), recurrent severe, without psychosis: (3) EVANS (generalized anxiety disorder): (4) Dementia: Plan -Ongoing geriatric psychiatry bed search -On 302 commitment -Suicide precautions, 1-on-1 -Continue home psychiatric medications Interval History Identifying Information Lulu Zhong is a 68-year-old female history of generalized anxiety disorder, MDD with anxious distress, migraines, cognitive impairment, tardive dyskinesia who presents after an intentional overdose of her propranolol with concerns of being a suicide attempt. Ingestion occurred in the setting of familial conflict with daughter. Chief Complaint "OK, I've been sleeping a lot". Subjective Subjective Patient was seen & assessed and interval progress reviewed. Reports her mood is "ok", has been sleeping a lot today, she reports this is pretty typical as she doesn't sleep well at night. Recalls events leading to hospitalization, feels she attempted suicide because "my daughter said 'I don't love you anymore'". She reports fear of having to go to a shelter. Confused at times, thought she was wearing an open gown when wearing scrubs. Physical Exam Psychiatric Orientation: alert and oriented to person Apperance: appropriately dressed and + disheveled Eye Contact: + fair eye contact Motor Behavior: no abnormal motor movements Speech: + abnormal rate/rhythm/volume of speech (latent) Affect: + constricted affect Mood: + depressed mood and + anxious mood Thought Process: + concrete thought process Thought Content: reality based without delusions Suicidal Thoughts: denies suicidal thoughts (but s/p attempt) Homicidal Thoughts: denies homicidal thoughts Hallucinations: no auditory hallucinations and no visual hallucinations Insight: + limited insight Judgment: + limited judgement Vital Signs (Past 24 Hours) Last Vital Signs Temp 36.8 C 04/23/24 12:48 Pulse 86 04/23/24 12:48 Resp 18 04/23/24 12:48 BP 109/69 04/23/24 12:48 Pulse Ox 97 04/23/24 12:48 O2 Del Method Room Air 04/23/24 12:48 Results & Data ([facility]) Laboratory Results Laboratory Results - last 24 hr 04/23/24 07:11 WBC 5.61 RBC 4.19 L Hgb 13.1 Hct 39.2 MCV 93.6 MCH 31.3 MCHC 33.4 RDW Std Deviation 43.2 RDW Coeff of Zonia 12.7 Plt Count 159 MPV 9.7 Sodium 142 Potassium 3.8 Chloride 110 H Carbon Dioxide 29 Anion Gap 3 BUN 23 Creatinine 1.10 Est Cr Clr Drug Dosing 41.1 Est GFR ( Amer) 58.9 Est GFR (Non-Af Amer) 50.8 BUN/Creatinine Ratio 20.9 H Glucose 121 H Calcium 8.6 Current Inpatient Medications Current Inpatient Medications: Current Inpatient Medications Acetaminophen (Acetaminophen 325 Mg Tab) 650 mg PO QID PRN PRN Reason: pain/fever Stop: 05/21/24 01:15 Hydrocodone Bitart/Acetaminophen (Hydrocodone/Acetamophen 5/325mg Tab) 1 tab PO QID PRN PRN Reason: Pain Stop: 05/05/24 01:15 Last Admin: 04/22/24 23:26 Dose: 1 tab Aripiprazole (Aripiprazole 15 Mg Tab) 15 mg PO HS DANYELLE Stop: 05/21/24 20:59 Last Admin: 04/22/24 20:51 Dose: 15 mg Calcium Polycarbophil (Calcium Polycarbophil 625mg Tab) 625 mg PO DAILY DANYELLE Stop: 05/23/24 08:59 Last Admin: 04/23/24 09:01 Dose: 625 mg Cetirizine HCl (Cetirizine Hcl 10 Mg Tablet) 10 mg PO PM DANYELLE Stop: 05/21/24 20:59 Last Admin: 04/22/24 20:51 Dose: 10 mg Clonazepam (Clonazepam 1 Mg Tab) 1 mg PO BID DANYELLE Stop: 05/21/24 08:59 Last Admin: 04/23/24 09:54 Dose: 1 mg Diclofenac Sodium (Diclofenac Sod 1% Gel 100 Gm Tube) 2 gm EXT Q4H [facility]; Protocol Stop: 05/22/24 09:59 Last Admin: 04/23/24 13:28 Dose: Not Given Duloxetine HCl (Duloxetine Hcl 20 Mg Cap) 20 mg PO QPM DANYELLE Stop: 05/21/24 20:59 Last Admin: 04/22/24 20:51 Dose: 20 mg Duloxetine HCl (Duloxetine Hcl 30 Mg Cap) 30 mg PO BID DANYELLE Stop: 05/21/24 08:59 Last Admin: 04/23/24 09:54 Dose: 30 mg Enoxaparin Sodium (Enoxaparin Inj 40 Mg/0.4 Ml Syr) 40 mg SQ Q24H DANYELLE Stop: 05/22/24 16:59 Last Admin: 04/22/24 17:19 Dose: 40 mg Miscellaneous (Estradiol 0.01% Cream: Order Awaiting Action) 1 each N/A QS [facility] Stop: 05/23/24 07:59 Last Admin: 04/23/24 09:00 Dose: Not Given Ondansetron HCl (Ondansetron Inj 2 Mg/Ml 2 Ml Vial) 4 mg IV Q6H PRN PRN Reason: Nausea And Vomiting Stop: 05/21/24 01:17 Pantoprazole Sodium (Pantoprazole 40 Mg Tab) 40 mg PO DAILYBB DANYELLE Stop: 05/21/24 06:29 Last Admin: 04/23/24 05:37 Dose: 40 mg Polyethylene Glycol (Polyethylene (Miralax) 17 Gm Pack) 119 gm PO DAILY PRN PRN Reason: Constipation Stop: 05/21/24 01:55 Topiramate (Topiramate 50 Mg Tab) 50 mg PO QPM DANYELLE Stop: 05/21/24 20:59 Last Admin: 04/22/24 20:51 Dose: 50 mg Trazodone HCl (Trazodone Hcl 100 Mg Tab) 200 mg PO HS DANYELLE Stop: 05/21/24 20:59 Last Admin: 04/22/24 20:51 Dose: 200 mg Vibegron (Vibegron 75 Mg Tab) 75 mg PO DAILY DANYELLE Stop: 05/21/24 08:59 Last Admin: 04/23/24 09:54 Dose: 75 mg
--- NOTE | 2024-04-23 15:08 | Hospitalist Progress Note ---
Date of Service April 23, 2024 Assessment & Plan (1) Intentional overdose of beta-adrenergic blocking drug: Plan: Ms Zhong is a 68 year old woman with history significant for hyperlipidemia, anxiety/mood disorder, migraine, tardive dyskinesia, cognitive impairment as per records who was admitted for observation 2/2 intentional BB ingestion. Patient took unquantified amount of propranolol tablets in the bottle after having an argument with her daughter. Patient with fall after episode of diarrhea 2/2 diet (patient reported to be lactose intolerant and ate lactose product for breakfast). CT negative. Patient remains medically stable and pending placement for inpatient [facility] psych. PT/OT ordered 302 COMPLETED WITH EXP. 04/27/24 0924, PATIENT MAY NOT LEAVE AMA, PLEASE CALL PSYCH EXT. 1898 IF PATIENT ATTEMPTS TO DO SO, BED SEARCH IN PROGRESS. #Intentional BB Overdose Secondary to suicidality poison control involved 04/21, cleared in the afternoon, no pressor requirements CTM Patient is 302 at this time Psych performing bed search for inpt jayro psych Appreciate further recs #Mechanical fall CT head this am negative, XR knee normal CTM #Neck pain possible strain without recollection of trauma #hx migraine, patient denies headache symptoms tylenol and tramadol prn Heat compress #tardive dyskinesia #cognitive impairment as per records CTM Patient medically stable. Patient daughter requesting updates providers. Ms. Danni Zhong, contact #[phone]. Daughter updated at bedside Diet HH/lactose intolerant lovenox Admission and Anticipated Discharge Date Admission Date: April 22, 2024 Subjective Patient evaluated at bedside with daughter/grandson in room She reports feeling scared that "we" are trying to put her in a detention She reports chronic pain in neck, but also notes that she doesn't remember having diarrhea the day before She reports panic attacks frequently and feeling very down Physical Exam Constitutional: WD/WN, vitals as above Respiratory: normal respiratory effort, lungs clear to auscultation Cardiovascular: RRR, no murmur, no edema Results & Data Results & Data Vital Signs (Past 12 Hours) Vital Signs Temp Pulse Resp BP Pulse Ox O2 Del Method O2 Del Method 04/23/24 12:48 36.8 C 86 18 109/69 97 Room Air 04/23/24 11:00 Room Air 04/23/24 08:56 36.8 C 80 14 111/73 97 Room Air Laboratory Results Short CBC 04/23/24 Range/Units 07:11 WBC 5.61 (4.8-10.8) K/ul Hgb 13.1 (12.0-16.0) g/dl Hct 39.2 (37.0-47.0) % Plt Count 159 (130-400) K/uL BMP 04/23/24 07:11 Sodium 142 Potassium 3.8 Chloride 110 H Carbon Dioxide 29 BUN 23 Creatinine 1.10 Glucose 121 H Calcium 8.6 Medications Administered Home Medications Medication Instructions Recorded Confirmed Last Taken omeprazole 40 mg capsule,delayed 40 mg PO DAILYBB 10/19/22 04/20/24 04/20/24 release trazodone 100 mg tablet 200 mg PO HS 10/19/22 04/20/24 04/19/24 clonazepam 0.5 mg tablet (Klonopin) 0.5 mg PO BID Anxiety 11/22/22 04/22/24 04/20/24 12:00 alendronate 70 mg tablet 70 mg PO WK 04/20/24 04/20/24 04/17/24 aripiprazole 15 mg tablet 15 mg PO HS 04/20/24 04/20/24 04/19/24 calcium polycarbophil 625 mg 625 mg PO DAILY 04/20/24 04/20/24 04/20/24 tablet (FiberCon) cranberry extract-vitamin C 250 1 cap PO DAILY PRN NEEDED 04/20/24 04/20/24 Unknown mg-60 mg capsule (Azo Cranberry Plus Vit C) duloxetine 20 mg capsule,delayed 20 mg PO QPM 04/20/24 04/20/24 04/20/24 release duloxetine 30 mg capsule,delayed 30 mg PO BID 04/20/24 04/20/24 04/20/24 release estradiol 0.01% (0.1 mg/gram) 0.5 g vaginal BID 04/20/24 04/20/24 Unknown vaginal cream hydrocodone 5 mg-acetaminophen 325 1 tab PO Q6H PRN Pain 04/20/24 04/20/24 Unknown mg tablet levocetirizine 5 mg tablet (Xyzal) 5 mg PO PM 04/20/24 04/20/24 04/20/24 mirabegron 50 mg tablet,extended 50 mg PO QAM 04/20/24 04/20/24 04/20/24 release 24 hr (Myrbetriq) polyethylene glycol 3350 17 119 g PO DAILY PRN Constipation 04/20/24 04/20/24 Unknown gram/dose oral powder (Miralax) propranolol 10 mg tablet 10 mg PO BID 04/20/24 04/20/24 04/20/24 topiramate 50 mg tablet 50 mg PO QPM 04/20/24 04/20/24 04/19/24 Active Medications Generic Name Dose Route Start Last Admin Trade Name Freq PRN Reason Stop Dose Admin Hydrocodone Bitart/Acetaminophen 1 tab 04/21/24 01:16 04/23/24 14:52 Hydrocodone/Acetamophen 5/325mg Tab PO 05/05/24 01:15 1 tab QID PRN Administration Pain Aripiprazole 15 mg 04/21/24 21:00 04/22/24 20:51 Aripiprazole 15 Mg Tab PO 05/21/24 20:59 15 mg HS DANYELLE Administration Calcium Polycarbophil 625 mg 04/23/24 09:00 04/23/24 09:01 Calcium Polycarbophil 625mg Tab PO 05/23/24 08:59 625 mg DAILY DANYELLE Administration Cetirizine HCl 10 mg 04/21/24 21:00 04/22/24 20:51 Cetirizine Hcl 10 Mg Tablet PO 05/21/24 20:59 10 mg PM DANYELLE Administration Clonazepam 1 mg 04/21/24 09:00 04/23/24 09:54 Clonazepam 1 Mg Tab PO 05/21/24 08:59 1 mg BID DANYELLE Administration Diclofenac Sodium 2 gm 04/22/24 10:00 04/23/24 13:28 Diclofenac Sod 1% Gel 100 Gm Tube EXT 05/22/24 09:59 Not Given Q4H DANYELLE Protocol Duloxetine HCl 20 mg 04/21/24 21:00 04/22/24 20:51 Duloxetine Hcl 20 Mg Cap PO 05/21/24 20:59 20 mg QPM DANYELLE Administration Duloxetine HCl 30 mg 04/21/24 09:00 04/23/24 09:54 Duloxetine Hcl 30 Mg Cap PO 05/21/24 08:59 30 mg BID DANYELLE Administration Enoxaparin Sodium 40 mg 04/22/24 17:00 04/22/24 17:19 Enoxaparin Inj 40 Mg/0.4 Ml Syr SQ 05/22/24 16:59 40 mg Q24H DANYELLE Administration Miscellaneous 1 each 04/23/24 08:00 04/23/24 09:00 Estradiol 0.01% Cream: Order Awaiting Action N/A 05/23/24 07:59 Not Given QS DANYELLE Pantoprazole Sodium 40 mg 04/21/24 06:30 04/23/24 05:37 Pantoprazole 40 Mg Tab PO 05/21/24 06:29 40 mg DAILYBB DANYELLE Administration Topiramate 50 mg 04/21/24 21:00 04/22/24 20:51 Topiramate 50 Mg Tab PO 05/21/24 20:59 50 mg QPM DANYELLE Administration Trazodone HCl 200 mg 04/21/24 21:00 04/22/24 20:51 Trazodone Hcl 100 Mg Tab PO 05/21/24 20:59 200 mg HS DANYELLE Administration Vibegron 75 mg 04/21/24 09:00 04/23/24 09:54 Vibegron 75 Mg Tab PO 05/21/24 08:59 75 mg DAILY DANYELLE Administration
[2024-04-23 17:11] LABS: Influenza A virus by PCR Negative (Neg); Influenza B virus by PCR Negative (Neg); RSV by PCR Negative (Neg); SARS CoV2 RNA(COVID-19) Ceph NEGATIVE (Negative)
[2024-04-23] MEDS: CALCIUM CARBONATE 500 MG CHEWABLE TAB PO ONE (17:37)
--- NOTE | 2024-04-24 12:40 | Psychiatric Progress Note ---
Date of Service April 24, 2024 Impression / Recommendations Impression Lulu Zhong is a 68-year-old female history of generalized anxiety disorder, MDD with anxious distress, migraines, cognitive impairment, tardive dyskinesia who presents after an intentional overdose of her propranolol with concerns of being a suicide attempt. Ingestion occurred in the setting of familial conflict with daughter. Diagnostically her presentation is odd. Suspect significant personality component to her presentation based on collateral information psychiatric liasons' gathered from her daughter as well as her peculiar pattern of cognitive deficits. While not impossible, it is quite atypical that day to day her orientation changes so dramatically in the absence of delirium and that her speech latency also fluctuates moment to moment. She is able to cognitively manipulate more complex questions about recent events but then states the year is 2074 or thinks the month is July after she accurately describes the events leading to her hospitalization including specific quotes and slights she feels she experienced from her family. Suspect she has prominent dependency traits. A: She reports improving mood and is denying SI. Psych liason did safety planning with her daughter as she is unlikely to meet 303 criteria should geriatric bed search remain unsuccessful. She was agreeable to outpatient CM referral which could offer benefits for adding support and helping her identify other community resources to increase her connections to others. Will reduce Klonopin given concern for cognitive deficits component, excessive daytime fatigue and recent fall. She remains on a 302 commitment. The patient remains hospitalized on a completed 302 involuntary commitment, which if not extended, will on 04/27/2024 at 0924. This patient must remain on safety precautions with a 1-on-1 and is unable to leave the hospital AMA. (1) Suicide attempt by drug overdose: (2) MDD (major depressive disorder), recurrent severe, without psychosis: (3) EVANS (generalized anxiety disorder): (4) Dementia: Plan -Ongoing geriatric psychiatry bed search -On 302 commitment -Suicide precautions, 1-on-1 -Reduce Klonopin to 0.5mg qnoon and 1mg PM -For acute anxiety could consider additional abilify 2.5mg daily prn Interval History Identifying Information Lulu Zhong is a 68-year-old female history of generalized anxiety disorder, MDD with anxious distress, migraines, cognitive impairment, tardive dyskinesia who presents after an intentional overdose of her propranolol with concerns of being a suicide attempt. Ingestion occurred in the setting of familial conflict with daughter. Chief Complaint "I've been feeling good since I've been in here". Subjective Subjective Patient was seen & assessed and interval progress reviewed. Oriented to person, being in the hospital and year but not to city states "I can't pronounce it" and with prompting to attempt anyway says "[place]" and not to month states it is "[place]". Denies SI, states she hasn't had any since the day she came to the hospital. She is agreeable to trying to reduce her Klonopin but then states she thinks it was increased during this hospital and attributes that to why she's been doing well. Worries that reduction may cause her to feel more "jittery". Physical Exam Psychiatric Orientation: alert and oriented to person; + not oriented to place and + not oriented to time Apperance: appropriately dressed and + disheveled Eye Contact: + fair eye contact Motor Behavior: no abnormal motor movements Speech: + abnormal rate/rhythm/volume of speech (latent at times) Affect: + constricted affect Mood: + depressed mood and + anxious mood Thought Process: + concrete thought process Thought Content: reality based without delusions Suicidal Thoughts: denies suicidal thoughts (but s/p attempt) Homicidal Thoughts: denies homicidal thoughts Hallucinations: no auditory hallucinations and no visual hallucinations Insight: + limited insight Judgment: + limited judgement Vital Signs (Past 24 Hours) Last Vital Signs Temp 36.9 C 04/24/24 09:53 Pulse 108 H 04/24/24 09:53 Resp 18 04/24/24 09:53 BP 127/78 04/24/24 09:53 Pulse Ox 95 04/24/24 09:53 O2 Del Method Room Air 04/24/24 11:00 Results & Data ([facility]) Laboratory Results Laboratory Results - last 24 hr 04/23/24 Unknown SARS-CoV-2 (PCR) NEGATIVE Influenza Type A (PCR) Negative Influenza Type B (PCR) Negative RSV (RT-PCR) Negative Current Inpatient Medications Current Inpatient Medications: Current Inpatient Medications Acetaminophen (Acetaminophen 325 Mg Tab) 650 mg PO QID PRN PRN Reason: pain/fever Stop: 05/21/24 01:15 Hydrocodone Bitart/Acetaminophen (Hydrocodone/Acetamophen 5/325mg Tab) 1 tab PO QID PRN PRN Reason: Pain Stop: 05/05/24 01:15 Last Admin: 04/23/24 14:52 Dose: 1 tab Aripiprazole (Aripiprazole 15 Mg Tab) 15 mg PO HS [facility] Stop: 05/21/24 20:59 Last Admin: 04/23/24 20:42 Dose: 15 mg Calcium Polycarbophil (Calcium Polycarbophil 625mg Tab) 625 mg PO DAILY DANYELLE Stop: 05/23/24 08:59 Last Admin: 04/24/24 09:45 Dose: 625 mg Cetirizine HCl (Cetirizine Hcl 10 Mg Tablet) 10 mg PO PM [facility] Stop: 05/21/24 20:59 Last Admin: 04/23/24 20:41 Dose: 10 mg Clonazepam (Clonazepam 1 Mg Tab) 1 mg PO BID [facility] Stop: 05/21/24 08:59 Last Admin: 04/24/24 09:47 Dose: 1 mg Diclofenac Sodium (Diclofenac Sod 1% Gel 100 Gm Tube) 2 gm EXT Q4H [facility]; Protocol Stop: 05/22/24 09:59 Last Admin: 04/24/24 09:45 Dose: 2 gm Docusate Sodium (Docusate Sodium 100 Mg Cap) 100 mg PO BID PRN PRN Reason: constipation Stop: 05/23/24 20:59 Duloxetine HCl (Duloxetine Hcl 20 Mg Cap) 20 mg PO QPM DANYELLE Stop: 05/21/24 20:59 Last Admin: 04/23/24 20:41 Dose: 20 mg Duloxetine HCl (Duloxetine Hcl 30 Mg Cap) 30 mg PO BID [facility] Stop: 05/21/24 08:59 Last Admin: 04/24/24 09:45 Dose: 30 mg Enoxaparin Sodium (Enoxaparin Inj 40 Mg/0.4 Ml Syr) 40 mg SQ Q24H [facility] Stop: 05/22/24 16:59 Last Admin: 04/23/24 16:56 Dose: 40 mg Miscellaneous (Estradiol 0.01% Cream: Order Awaiting Action) 1 each N/A QS [facility] Stop: 05/23/24 07:59 Last Admin: 04/24/24 07:08 Dose: Not Given Ondansetron HCl (Ondansetron Inj 2 Mg/Ml 2 Ml Vial) 4 mg IV Q6H PRN PRN Reason: Nausea And Vomiting Stop: 05/21/24 01:17 Pantoprazole Sodium (Pantoprazole 40 Mg Tab) 40 mg PO DAILYBB DANYELLE Stop: 05/21/24 06:29 Last Admin: 04/24/24 05:48 Dose: 40 mg Polyethylene Glycol (Polyethylene (Miralax) 17 Gm Pack) 119 gm PO DAILY PRN PRN Reason: Constipation Stop: 05/21/24 01:55 Topiramate (Topiramate 50 Mg Tab) 50 mg PO QPM DANYELLE Stop: 05/21/24 20:59 Last Admin: 04/23/24 20:41 Dose: 50 mg Tramadol HCl (Tramadol Hcl 50 Mg Tablet) 50 mg PO Q12 PRN PRN Reason: Pain Stop: 05/23/24 15:03 Trazodone HCl (Trazodone Hcl 100 Mg Tab) 200 mg PO HS DANYELLE Stop: 05/21/24 20:59 Last Admin: 04/23/24 21:23 Dose: 200 mg Vibegron (Vibegron 75 Mg Tab) 75 mg PO DAILY DANYELLE Stop: 05/21/24 08:59 Last Admin: 04/24/24 09:45 Dose: 75 mg
--- NOTE | 2024-04-24 12:45 | Hospitalist Progress Note ---
Date of Service April 24, 2024 Assessment & Plan (1) Intentional overdose of beta-adrenergic blocking drug: Plan: Ms Zhong is a 68 year old woman with history significant for hyperlipidemia, anxiety/mood disorder, migraine, tardive dyskinesia, cognitive impairment as per records who was admitted for observation 2/2 intentional BB ingestion. Patient took unquantified amount of propranolol tablets in the bottle after having an argument with her daughter. Patient with fall after episode of diarrhea 2/2 diet (patient reported to be lactose intolerant and ate lactose product for breakfast). CT negative. Patient remains medically stable and pending placement for inpatient [facility]. PT/OT ordered 302 COMPLETED WITH EXP. 04/27/24923, PATIENT MAY NOT LEAVE AMA, PLEASE CALL PSYCH EXT. 4771 IF PATIENT ATTEMPTS TO DO SO, BED SEARCH IN PROGRESS. #Intentional BB Overdose Secondary to suicidality poison control involved 04/21, cleared in the afternoon, no pressor requirements CTM Patient is 302 at this time Psych performing bed search for inpt [facility] psych Appreciate further recs #Severe anxiety continue home regimen one time abilify 2.5 now for anxiety Psych with further recommendations to follow #Mechanical fall CT head this am negative, XR knee normal CTM #Neck pain possible strain without recollection of trauma #hx migraine, patient denies headache symptoms tylenol and tramadol prn Heat compress #tardive dyskinesia #cognitive impairment as per records CTM Patient medically stable. Diet HH/lactose intolerant lovenox Admission and Anticipated Discharge Date Admission Date: April 22, 2024 Subjective RUT Reports feeling ok today. Still concerned about living situation and possible transitions to a psych unit, she is worried it will be a "halfway." Reassured patient Endorses back pain which improved after readjusting in bed. otherwise no further issues noted Physical Exam Constitutional: WD/WN, vitals as above Respiratory: normal respiratory effort, lungs clear to auscultation Cardiovascular: RRR, no murmur, no edema Neurologic: PERRL, EOMI, accommodation nl, no face palsy, no dysarthria Results & Data Results & Data Vital Signs (Past 12 Hours) Vital Signs Temp Pulse Pulse Resp BP Pulse Ox O2 Del Method 04/24/24 11:00 04/24/24 09:53 36.9 C 108 H 18 127/78 95 Room Air 04/24/24 06:52 94 H 04/24/24 04:28 36.3 C L 86 18 119/71 95 Room Air O2 Del Method 04/24/24 11:00 Room Air 04/24/24 09:53 04/24/24 06:52 04/24/24 04:28 Medications Administered Home Medications Medication Instructions Recorded Confirmed Last Taken omeprazole 40 mg capsule,delayed 40 mg PO DAILYBB 10/19/22 04/20/24 04/20/24 release trazodone 100 mg tablet 200 mg PO HS 10/19/22 04/20/24 04/19/24 clonazepam 0.5 mg tablet (Klonopin) 0.5 mg PO BID Anxiety 11/22/22 04/22/24 04/20/24 12:00 alendronate 70 mg tablet 70 mg PO WK 04/20/24 04/20/24 04/17/24 aripiprazole 15 mg tablet 15 mg PO HS 04/20/24 04/20/24 04/19/24 calcium polycarbophil 625 mg 625 mg PO DAILY 04/20/24 04/20/24 04/20/24 tablet (FiberCon) cranberry extract-vitamin C 250 1 cap PO DAILY PRN NEEDED 04/20/24 04/20/24 Unknown mg-60 mg capsule (Azo Cranberry Plus Vit C) duloxetine 20 mg capsule,delayed 20 mg PO QPM 04/20/24 04/20/24 04/20/24 release duloxetine 30 mg capsule,delayed 30 mg PO BID 04/20/24 04/20/24 04/20/24 release estradiol 0.01% (0.1 mg/gram) 0.5 g vaginal BID 04/20/24 04/20/24 Unknown vaginal cream hydrocodone 5 mg-acetaminophen 325 1 tab PO Q6H PRN Pain 04/20/24 04/20/24 Unknown mg tablet levocetirizine 5 mg tablet (Xyzal) 5 mg PO PM 04/20/24 04/20/24 04/20/24 mirabegron 50 mg tablet,extended 50 mg PO QAM 04/20/24 04/20/24 04/20/24 release 24 hr (Myrbetriq) polyethylene glycol 3350 17 119 g PO DAILY PRN Constipation 04/20/24 04/20/24 Unknown gram/dose oral powder (Miralax) propranolol 10 mg tablet 10 mg PO BID 04/20/24 04/20/24 04/20/24 topiramate 50 mg tablet 50 mg PO QPM 04/20/24 04/20/24 04/19/24 Active Medications Generic Name Dose Route Start Last Admin Trade Name Freq PRN Reason Stop Dose Admin Hydrocodone Bitart/Acetaminophen 1 tab 04/21/24 01:16 04/23/24 14:52 Hydrocodone/Acetamophen 5/325mg Tab PO 05/05/24 01:15 1 tab QID PRN Administration Pain Aripiprazole 15 mg 04/21/24 21:00 04/23/24 20:42 Aripiprazole 15 Mg Tab PO 05/21/24 20:59 15 mg HS DANYELLE Administration Calcium Polycarbophil 625 mg 04/23/24 09:00 04/24/24 09:45 Calcium Polycarbophil 625mg Tab PO 05/23/24 08:59 625 mg DAILY DANYELLE Administration Cetirizine HCl 10 mg 04/21/24 21:00 04/23/24 20:41 Cetirizine Hcl 10 Mg Tablet PO 05/21/24 20:59 10 mg PM DANYELLE Administration Clonazepam 1 mg 04/21/24 09:00 04/24/24 09:47 Clonazepam 1 Mg Tab PO 05/21/24 08:59 1 mg BID DANYELLE Administration Diclofenac Sodium 2 gm 04/22/24 10:00 04/24/24 13:15 Diclofenac Sod 1% Gel 100 Gm Tube EXT 05/22/24 09:59 2 gm Q4H DANYELLE Administration Protocol Duloxetine HCl 20 mg 04/21/24 21:00 04/23/24 20:41 Duloxetine Hcl 20 Mg Cap PO 05/21/24 20:59 20 mg QPM DANYELLE Administration Duloxetine HCl 30 mg 04/21/24 09:00 04/24/24 09:45 Duloxetine Hcl 30 Mg Cap PO 05/21/24 08:59 30 mg BID DANYELLE Administration Enoxaparin Sodium 40 mg 04/22/24 17:00 04/23/24 16:56 Enoxaparin Inj 40 Mg/0.4 Ml Syr SQ 05/22/24 16:59 40 mg Q24H DANYELLE Administration Miscellaneous 1 each 04/23/24 08:00 04/24/24 07:08 Estradiol 0.01% Cream: Order Awaiting Action N/A 05/23/24 07:59 Not Given QS DANYELLE Pantoprazole Sodium 40 mg 04/21/24 06:30 04/24/24 05:48 Pantoprazole 40 Mg Tab PO 05/21/24 06:29 40 mg DAILYBB DANYELLE Administration Topiramate 50 mg 04/21/24 21:00 04/23/24 20:41 Topiramate 50 Mg Tab PO 05/21/24 20:59 50 mg QPM DANYELLE Administration Trazodone HCl 200 mg 04/21/24 21:00 04/23/24 21:23 Trazodone Hcl 100 Mg Tab PO 05/21/24 20:59 200 mg HS DANYELLE Administration Vibegron 75 mg 04/21/24 09:00 04/24/24 09:45 Vibegron 75 Mg Tab PO 05/21/24 08:59 75 mg DAILY DANYELLE Administration
[2024-04-24] MEDS: ARIPiprazole 5 MG TAB PO STA (14:57)
[2024-04-24] MEDS: traMADol HCL 50 MG TABLET PO PRN (16:39)
[2024-04-24] MEDS: LORazepam 0.5 MG TAB PO STA (20:53)
[2024-04-25] MEDS: clonazePAM 0.5 MG TAB PO SCH (11:49)
--- NOTE | 2024-04-25 13:54 | Psychiatric Progress Note ---
Date of Service April 25, 2024 Impression / Recommendations Impression Lulu Zhong is a 68-year-old female history of generalized anxiety disorder, MDD with anxious distress, migraines, cognitive impairment, tardive dyskinesia who presents after an intentional overdose of her propranolol with concerns of being a suicide attempt. Ingestion occurred in the setting of familial conflict with daughter. Diagnostically her presentation is odd. Suspect significant personality component to her presentation based on collateral information psychiatric liasons' gathered from her daughter as well as her peculiar pattern of cognitive deficits. While not impossible, it is quite atypical that day to day her orientation changes so dramatically in the absence of delirium and that her speech latency also fluctuates moment to moment. She is able to cognitively manipulate more complex questions about recent events but then states the year is 2074 or thinks the month is July after she accurately describes the events leading to her hospitalization including specific quotes and slights she feels she experienced from her family. Suspect she has prominent dependency traits. A: Mood remains stable, denies SI, future-oriented but worried about conflict with daughter and whether or not daughter will be supportive of her returning to her home. For now geriatric bed search continues but she is unlikely to meet 303 criteria given improvement in mood without any further SI, self-harm urges nor prominent major depressive symptoms. Rather seems her mood change and suicide attempt was driven by conflict with her daughter and she feels they had a good visit while she's been in the hospital. Less sedated today with lower dose of Klonopin and no evidence for worsening of anxiety, in fact appears more calm and cognition is sharper today. She remains on a 302 commitment. The patient remains hospitalized on a completed 302 involuntary commitment, which if not extended, will on 04/27/2024 at 0924. This patient must remain on safety precautions with a 1-on-1 and is unable to leave the hospital AMA. Overall, I spent a total of 40 minutes on this case including meeting with the patient, reviewing the chart and documentation. (1) Suicide attempt by drug overdose: (2) MDD (major depressive disorder), recurrent severe, without psychosis: (3) EVANS (generalized anxiety disorder): (4) Dementia: Plan -Ongoing geriatric psychiatry bed search -On 302 commitment -Suicide precautions, 1-on-1 -Reduced Klonopin to 0.5mg qnoon and 1mg PM -For acute anxiety could consider additional abilify 2.5mg daily prn Interval History Identifying Information Lulu Zhong is a 68-year-old female history of generalized anxiety disorder, MDD with anxious distress, migraines, cognitive impairment, tardive dyskinesia who presents after an intentional overdose of her propranolol with concerns of being a suicide attempt. Ingestion occurred in the setting of familial conflict with daughter. Chief Complaint "I'm so so". Subjective Subjective Patient was seen & assessed and interval progress reviewed. Less sedated today, she slept well overnight. Continues to deny SI. She would like to return home as she feels she would not act on thoughts of suicide again and hasn't been having any thoughts of suicide. She does acknowledge frequent conflict with her daughter, but struggles to think about ways to navigate this or ways to find ore independence. Agrees that she is often with her daughter all the time and quite dependent on her. She worries her daughter won't want her to come home. Oriented to place, not to city or month, and to year, but similar to previous interactions no evidence for confusion during the conversation. Physical Exam Psychiatric Orientation: alert and oriented to person; + not oriented to place and + not oriented to time Apperance: appropriately dressed and appropriately groomed Eye Contact: good eye contact Motor Behavior: no abnormal motor movements Speech: + abnormal rate/rhythm/volume of speech (latent at times, but significantly less so today) Affect: + constricted affect Mood: + anxious mood (about whether or not her daughter will want her to come home) Thought Process: + concrete thought process Thought Content: reality based without delusions Suicidal Thoughts: denies suicidal thoughts (but s/p attempt) Homicidal Thoughts: denies homicidal thoughts Hallucinations: no auditory hallucinations and no visual hallucinations Insight: + limited insight Judgment: + limited judgement Vital Signs (Past 24 Hours) Last Vital Signs Temp 36.6 C 04/25/24 07:14 Pulse 94 H 04/25/24 07:14 Resp 16 04/25/24 07:14 BP 112/65 04/25/24 07:14 Pulse Ox 94 04/25/24 07:14 O2 Del Method Room Air 04/25/24 08:57 Results & Data ([facility]) Current Inpatient Medications Current Inpatient Medications: Current Inpatient Medications Acetaminophen (Acetaminophen 325 Mg Tab) 650 mg PO QID PRN PRN Reason: pain/fever Stop: 05/21/24 01:15 Hydrocodone Bitart/Acetaminophen (Hydrocodone/Acetamophen 5/325mg Tab) 1 tab PO QID PRN PRN Reason: Pain Stop: 05/05/24 01:15 Last Admin: 04/23/24 14:52 Dose: 1 tab Aripiprazole (Aripiprazole 15 Mg Tab) 15 mg PO HS [facility] Stop: 05/21/24 20:59 Last Admin: 04/24/24 20:17 Dose: 15 mg Calcium Polycarbophil (Calcium Polycarbophil 625mg Tab) 625 mg PO DAILY [facility] Stop: 05/23/24 08:59 Last Admin: 04/25/24 08:57 Dose: 625 mg Cetirizine HCl (Cetirizine Hcl 10 Mg Tablet) 10 mg PO PM [facility] Stop: 05/21/24 20:59 Last Admin: 04/24/24 20:17 Dose: 10 mg Clonazepam (Clonazepam 0.5 Mg Tab) 0.5 mg PO DAILYBL D[facility]ELLE Stop: 05/25/24 10:29 Last Admin: 04/25/24 11:49 Dose: 0.5 mg Clonazepam (Clonazepam 1 Mg Tab) 1 mg PO DAILYBD [facility] Stop: 05/25/24 15:29 Diclofenac Sodium (Diclofenac Sod 1% Gel 100 Gm Tube) 2 gm EXT Q4H [facility]; Protocol Stop: 05/22/24 09:59 Last Admin: 04/25/24 11:49 Dose: 2 gm Docusate Sodium (Docusate Sodium 100 Mg Cap) 100 mg PO BID PRN PRN Reason: constipation Stop: 05/23/24 20:59 Duloxetine HCl (Duloxetine Hcl 20 Mg Cap) 20 mg PO QPM [facility] Stop: 05/21/24 20:59 Last Admin: 04/24/24 20:17 Dose: 20 mg Duloxetine HCl (Duloxetine Hcl 30 Mg Cap) 30 mg PO BID [facility]LE Stop: 05/21/24 08:59 Last Admin: 04/25/24 08:56 Dose: 30 mg Enoxaparin Sodium (Enoxaparin Inj 40 Mg/0.4 Ml Syr) 40 mg SQ Q24H [facility] Stop: 05/22/24 16:59 Last Admin: 04/24/24 18:29 Dose: 40 mg Miscellaneous (Estradiol 0.01% Cream: Order Awaiting Action) 1 each N/A QS [facility] Stop: 05/23/24 07:59 Last Admin: 04/25/24 08:57 Dose: Not Given Ondansetron HCl (Ondansetron Inj 2 Mg/Ml 2 Ml Vial) 4 mg IV Q6H PRN PRN Reason: Nausea And Vomiting Stop: 05/21/24 01:17 Pantoprazole Sodium (Pantoprazole 40 Mg Tab) 40 mg PO DAILYBB [facility] Stop: 05/21/24 06:29 Last Admin: 04/25/24 06:36 Dose: 40 mg Polyethylene Glycol (Polyethylene (Miralax) 17 Gm Pack) 119 gm PO DAILY PRN PRN Reason: Constipation Stop: 05/21/24 01:55 Topiramate (Topiramate 50 Mg Tab) 50 mg PO QPM [facility]LE Stop: 05/21/24 20:59 Last Admin: 04/24/24 20:16 Dose: 50 mg Tramadol HCl (Tramadol Hcl 50 Mg Tablet) 50 mg PO Q12 PRN PRN Reason: Pain Stop: 05/23/24 15:03 Last Admin: 04/24/24 16:39 Dose: 50 mg Trazodone HCl (Trazodone Hcl 100 Mg Tab) 200 mg PO HS [facility] Stop: 05/21/24 20:59 Last Admin: 04/24/24 20:17 Dose: 200 mg Vibegron (Vibegron 75 Mg Tab) 75 mg PO DAILY DANYELLE Stop: 05/21/24 08:59 Last Admin: 04/24/24 09:45 Dose: 75 mg
--- NOTE | 2024-04-25 14:33 | Hospitalist Progress Note ---
Date of Service April 25, 2024 Assessment & Plan (1) Intentional overdose of beta-adrenergic blocking drug: Plan: Ms Zhong is a 68 year old woman with history significant for hyperlipidemia, anxiety/mood disorder, migraine, tardive dyskinesia, cognitive impairment as per records who was admitted for observation 2/2 intentional BB ingestion. Patient took unquantified amount of propranolol tablets in the bottle after having an argument with her daughter. Patient with fall after episode of diarrhea 2/2 diet (patient reported to be lactose intolerant and ate lactose product for breakfast). CT negative. Patient remains medically stable and pending placement for inpatient [facility] psych. PT/OT ordered 302 COMPLETED WITH EXP. 04/27/24 0924, PATIENT MAY NOT LEAVE AMA, PLEASE CALL PSYCH EXT. [phone] IF PATIENT ATTEMPTS TO DO SO, BED SEARCH IN PROGRESS. #Intentional BB Overdose Secondary to suicidality poison control involved 04/21, cleared in the afternoon, no pressor requirements CTM Patient is 302 at this time Psych performing bed search for inpt jayro psych Appreciate further recs Dispo continegent tomorrow on psych bed search #Severe anxiety continue home regimen one time abilify 2.5 now for anxiety Psych with further recommendations to follow Will consider additional abilify 2.5mg prn for anxitey Klonipin reduced per psych #Mechanical fall CT head negative, XR knee normal CTM PT/OT requesting FWW and OP PT #Neck pain possible strain without recollection of trauma #hx migraine, patient denies headache symptoms tylenol and tramadol prn Heat compress #tardive dyskinesia #cognitive impairment as per records CTM Patient medically stable. Diet HH/lactose intolerant lovenox Admission and Anticipated Discharge Date Admission Date: April 22, 2024 Subjective NAEO Reports feeling well, evaluated at bedside watched patient stand with min assist to go to bathroom Denies acute concerns, requesting "snack" and otherwise comfortable Physical Exam Constitutional: WD/WN, vitals as above Respiratory: normal respiratory effort, lungs clear to auscultation Cardiovascular: RRR, no murmur, no edema Neurologic: PERRL, EOMI, accommodation nl, no face palsy, no dysarthria Results & Data Results & Data Vital Signs (Past 12 Hours) Vital Signs Temp Pulse Resp BP Pulse Ox O2 Del Method 04/25/24 08:57 Room Air 04/25/24 07:14 36.6 C 94 H 16 112/65 94 Room Air Medications Administered Home Medications Medication Instructions Recorded Confirmed Last Taken omeprazole 40 mg capsule,delayed 40 mg PO DAILYBB 10/19/22 04/20/24 04/20/24 release trazodone 100 mg tablet 200 mg PO HS 10/19/22 04/20/24 04/19/24 clonazepam 0.5 mg tablet (Klonopin) 0.5 mg PO BID Anxiety 11/22/22 04/22/24 04/20/24 12:00 alendronate 70 mg tablet 70 mg PO WK 04/20/24 04/20/24 04/17/24 aripiprazole 15 mg tablet 15 mg PO HS 04/20/24 04/20/24 04/19/24 calcium polycarbophil 625 mg 625 mg PO DAILY 04/20/24 04/20/24 04/20/24 tablet (FiberCon) cranberry extract-vitamin C 250 1 cap PO DAILY PRN NEEDED 04/20/24 04/20/24 Unknown mg-60 mg capsule (Azo Cranberry Plus Vit C) duloxetine 20 mg capsule,delayed 20 mg PO QPM 04/20/24 04/20/24 04/20/24 release duloxetine 30 mg capsule,delayed 30 mg PO BID 04/20/24 04/20/24 04/20/24 release estradiol 0.01% (0.1 mg/gram) 0.5 g vaginal BID 04/20/24 04/20/24 Unknown vaginal cream hydrocodone 5 mg-acetaminophen 325 1 tab PO Q6H PRN Pain 04/20/24 04/20/24 Unknown mg tablet levocetirizine 5 mg tablet (Xyzal) 5 mg PO PM 04/20/24 04/20/24 04/20/24 mirabegron 50 mg tablet,extended 50 mg PO QAM 04/20/24 04/20/24 04/20/24 release 24 hr (Myrbetriq) polyethylene glycol 3350 17 119 g PO DAILY PRN Constipation 04/20/24 04/20/24 Unknown gram/dose oral powder (Miralax) propranolol 10 mg tablet 10 mg PO BID 04/20/24 04/20/24 04/20/24 topiramate 50 mg tablet 50 mg PO QPM 04/20/24 04/20/2424 Active Medications Generic Name Dose Route Start Last Admin Trade Name Freq PRN Reason Stop Dose Admin Hydrocodone Bitart/Acetaminophen 1 tab 04/21/24 01:16 04/23/24 14:52 Hydrocodone/Acetamophen 5/325mg Tab PO 05/05/24 01:15 1 tab QID PRN Administration Pain Aripiprazole 15 mg 04/21/24 21:00 04/24/24 20:17 Aripiprazole 15 Mg Tab PO 05/21/24 20:59 15 mg HS DANYELLE Administration Calcium Polycarbophil 625 mg 04/23/24 09:00 04/25/24 08:57 Calcium Polycarbophil 625mg Tab PO 05/23/24 08:59 625 mg DAILY DANYELLE Administration Cetirizine HCl 10 mg 04/21/24 21:00 04/24/24 20:17 Cetirizine Hcl 10 Mg Tablet PO 05/21/24 20:59 10 mg PM DANYELLE Administration Clonazepam 0.5 mg 04/25/24 10:30 04/25/24 11:49 Clonazepam 0.5 Mg Tab PO 05/25/24 10:29 0.5 mg DAILYBL DANYELLE Administration Diclofenac Sodium 2 gm 04/22/24 10:00 04/25/24 11:49 Diclofenac Sod 1% Gel 100 Gm Tube EXT 05/22/24 09:59 2 gm Q4H DANYELLE Administration Protocol Duloxetine HCl 20 mg 04/21/24 21:00 04/24/24 20:17 Duloxetine Hcl 20 Mg Cap PO 05/21/24 20:59 20 mg QPM DANYELLE Administration Duloxetine HCl 30 mg 04/21/24 09:00 04/25/24 08:56 Duloxetine Hcl 30 Mg Cap PO 05/21/24 08:59 30 mg BID DANYELLE Administration Enoxaparin Sodium 40 mg 04/22/24 17:00 04/24/24 18:29 Enoxaparin Inj 40 Mg/0.4 Ml Syr SQ 05/22/24 16:59 40 mg Q24H DANYELLE Administration Miscellaneous 1 each 04/23/24 08:00 04/25/24 08:57 Estradiol 0.01% Cream: Order Awaiting Action N/A 05/23/24 07:59 Not Given QS DANYELLE Pantoprazole Sodium 40 mg 04/21/24 06:30 04/25/24 06:36 Pantoprazole 40 Mg Tab PO 05/21/24 06:29 40 mg DAILYBB DANYELLE Administration Topiramate 50 mg 04/21/24 21:00 04/24/24 20:16 Topiramate 50 Mg Tab PO 05/21/24 20:59 50 mg QPM DANYELLE Administration Tramadol HCl 50 mg 04/23/24 15:04 04/24/24 16:39 Tramadol Hcl 50 Mg Tablet PO 05/23/24 15:03 50 mg Q12 PRN Administration Pain Trazodone HCl 200 mg 04/21/24 21:00 04/24/24 20:17 Trazodone Hcl 100 Mg Tab PO 05/21/24 20:59 200 mg HS DANYELLE Administration Vibegron 75 mg 04/21/24 09:00 04/24/24 09:45 Vibegron 75 Mg Tab PO 05/21/24 08:59 75 mg DAILY DANYELLE Administration
[2024-04-25] MEDS: DOCUSATE SODIUM 100 MG CAP PO PRN (15:48)
[2024-04-25] MEDS: clonazePAM 1 MG TAB PO SCH (15:55)
[2024-04-25] MEDS: ONDANSETRON INJ 2 MG/ML 2 ML VIAL IV PRN (20:13)
--- NOTE | 2024-04-26 14:06 | Hospitalist Progress Note ---
Date of Service April 26, 2024 Assessment & Plan (1) Intentional overdose of beta-adrenergic blocking drug: Plan: Ms Zhong is a 68 year old woman with history significant for hyperlipidemia, anxiety/mood disorder, migraine, tardive dyskinesia, cognitive impairment as per records who was admitted for observation 2/2 intentional BB ingestion. Patient took unquantified amount of propranolol tablets in the bottle after having an argument with her daughter. Patient with fall after episode of diarrhea 2/2 diet (patient reported to be lactose intolerant and ate lactose product for breakfast). CT negative. Patient remains medically stable and pending placement for inpatient [facility] psych. All inpatient [facility] psych units have declined. 302 expires tomorrow and patient will be discharged home. 302 COMPLETED WITH EXP. 04/27/24 0924, PATIENT MAY NOT LEAVE AMA, PLEASE CALL PSYCH EXT. [phone] IF PATIENT ATTEMPTS TO DO SO, BED SEARCH IN PROGRESS. #Intentional BB Overdose Secondary to suicidality poison control involved 04/21, cleared in the afternoon, no pressor requirements CTM Patient is 302 at this time Psych performing bed search for inpt [facility] psych Appreciate further recs Dispo continegent tomorrow on psych bed search #Severe anxiety continue home regimen one time abilify 2.5 now for anxiety Psych with further recommendations to follow Will consider additional abilify 2.5mg prn for anxitey Klonipin reduced per psych #Mechanical fall CT head negative, XR knee normal CTM PT/OT requesting FWW and OP PT #Neck pain possible strain without recollection of trauma #hx migraine, patient denies headache symptoms tylenol and tramadol prn Heat compress #tardive dyskinesia #cognitive impairment as per records CTM Patient medically stable. DISPO 302 expires tomorrow and patient will be discharged home with daughter who is pursuing personal care Diet HH/lactose intolerant lovenox Admission and Anticipated Discharge Date Admission Date: April 22, 2024 Subjective NAEO Resting peacefully at bedside Physical Exam Constitutional: WD/WN, vitals as above Respiratory: no apparent distress noted Neurologic: PERRL, EOMI, accommodation nl, no face palsy, no dysarthria Results & Data Results & Data Vital Signs (Past 12 Hours) Vital Signs Temp Pulse Resp BP Pulse Ox O2 Del Method 04/26/24 08:07 36.6 C 104 H 20 119/69 95 Room Air Medications Administered Home Medications Medication Instructions Recorded Confirmed Last Taken omeprazole 40 mg capsule,delayed 40 mg PO DAILYBB 10/19/22 04/20/24 04/20/24 release trazodone 100 mg tablet 200 mg PO HS 10/19/22 04/20/24 04/19/24 clonazepam 0.5 mg tablet (Klonopin) 0.5 mg PO BID Anxiety 11/22/22 04/22/24 04/20/24 12:00 alendronate 70 mg tablet 70 mg PO WK 04/20/24 04/20/24 04/17/24 aripiprazole 15 mg tablet 15 mg PO HS 04/20/24 04/20/24 04/19/24 calcium polycarbophil 625 mg 625 mg PO DAILY 04/20/24 04/20/24 04/20/24 tablet (FiberCon) cranberry extract-vitamin C 250 1 cap PO DAILY PRN NEEDED 04/20/24 04/20/24 Unknown mg-60 mg capsule (Azo Cranberry Plus Vit C) duloxetine 20 mg capsule,delayed 20 mg PO QPM 04/20/24 04/20/24 04/20/24 release duloxetine 30 mg capsule,delayed 30 mg PO BID 04/20/24 04/20/24 04/20/24 release estradiol 0.01% (0.1 mg/gram) 0.5 g vaginal BID 04/20/24 04/20/24 Unknown vaginal cream hydrocodone 5 mg-acetaminophen 325 1 tab PO Q6H PRN Pain 04/20/24 04/20/24 Unknown mg tablet levocetirizine 5 mg tablet (Xyzal) 5 mg PO PM 04/20/24 04/20/24 04/20/24 mirabegron 50 mg tablet,extended 50 mg PO QAM 04/20/24 04/20/24 04/20/24 release 24 hr (Myrbetriq) polyethylene glycol 3350 17 119 g PO DAILY PRN Constipation 04/20/24 04/20/24 Unknown gram/dose oral powder (Miralax) topiramate 50 mg tablet 50 mg PO QPM 04/20/24 04/20/24 04/19/24 Active Medications Generic Name Dose Route Start Last Admin Trade Name Freq PRN Reason Stop Dose Admin Hydrocodone Bitart/Acetaminophen 1 tab 04/21/24 01:16 04/23/24 14:52 Hydrocodone/Acetamophen 5/325mg Tab PO 05/05/24 01:15 1 tab QID PRN Administration Pain Aripiprazole 15 mg 04/21/24 21:00 04/25/24 20:06 Aripiprazole 15 Mg Tab PO 05/21/24 20:59 15 mg HS DANYELLE Administration Calcium Polycarbophil 625 mg 04/23/24 09:00 04/26/24 08:01 Calcium Polycarbophil 625mg Tab PO 05/23/24 08:59 625 mg DAILY DANYELLE Administration Cetirizine HCl 10 mg 04/21/24 21:00 04/25/24 20:07 Cetirizine Hcl 10 Mg Tablet PO 05/21/24 20:59 10 mg PM DANYELLE Administration Clonazepam 0.5 mg 04/25/24 10:30 04/26/24 10:35 Clonazepam 0.5 Mg Tab PO 05/25/24 10:29 0.5 mg DAILYBL DANYELLE Administration Clonazepam 1 mg 04/25/24 15:30 04/25/24 15:55 Clonazepam 1 Mg Tab PO 05/25/24 15:29 1 mg DAILYBD DANYELLE Administration Diclofenac Sodium 2 gm 04/22/24 10:00 04/26/24 14:02 Diclofenac Sod 1% Gel 100 Gm Tube EXT 05/22/24 09:59 Not Given Q4H DANYELLE Protocol Docusate Sodium 100 mg 04/23/24 15:02 04/26/24 08:01 Docusate Sodium 100 Mg Cap PO 05/23/24 20:59 100 mg BID PRN Administration constipation Duloxetine HCl 20 mg 04/21/24 21:00 04/25/24 20:07 Duloxetine Hcl 20 Mg Cap PO 05/21/24 20:59 20 mg QPM DANYELLE Administration Duloxetine HCl 30 mg 04/21/24 09:00 04/26/24 08:00 Duloxetine Hcl 30 Mg Cap PO 05/21/24 08:59 30 mg BID DANYELLE Administration Enoxaparin Sodium 40 mg 04/22/24 17:00 04/25/24 18:12 Enoxaparin Inj 40 Mg/0.4 Ml Syr SQ 05/22/24 16:59 40 mg Q24H DANYELLE Administration Miscellaneous 1 each 04/23/24 08:00 08/05/24 08:01 Estradiol 0.01% Cream: Order Awaiting Action N/A 05/23/24 07:59 Not Given QS DANYELLE Ondansetron HCl 4 mg 04/21/24 01:18 04/25/24 20:13 Ondansetron Inj 2 Mg/Ml 2 Ml Vial IV 05/21/24 01:17 4 mg Q6H PRN Administration Nausea And Vomiting Pantoprazole Sodium 40 mg 04/21/24 06:30 04/26/24 05:27 Pantoprazole 40 Mg Tab PO 05/21/24 06:29 40 mg DAILYBB DANYELLE Administration Topiramate 50 mg 04/21/24 21:00 04/25/24 20:06 Topiramate 50 Mg Tab PO 05/21/24 20:59 50 mg QPM DANYELLE Administration Tramadol HCl 50 mg 04/23/24 15:04 04/24/24 16:39 Tramadol Hcl 50 Mg Tablet PO 05/23/24 15:03 50 mg Q12 PRN Administration Pain Trazodone HCl 200 mg 04/21/24 21:00 04/25/24 20:07 Trazodone Hcl 100 Mg Tab PO 05/21/24 20:59 200 mg HS DANYELLE Administration Vibegron 75 mg 04/21/24 09:00 04/24/24 09:45 Vibegron 75 Mg Tab PO 05/21/24 08:59 75 mg DAILY DANYELLE Administration
--- NOTE | 2024-04-26 14:26 | Psychiatric Progress Note ---
Date of Service April 26, 2024 Impression / Recommendations Impression Lulu Zhong is a 68-year-old female history of generalized anxiety disorder, MDD with anxious distress, migraines, cognitive impairment, tardive dyskinesia who presents after an intentional overdose of her propranolol with concerns of being a suicide attempt. Ingestion occurred in the setting of familial conflict with daughter. Diagnostically her presentation is odd. Suspect significant personality component to her presentation based on collateral information psychiatric liasons' gathered from her daughter as well as her peculiar pattern of cognitive deficits. While not impossible, it is quite atypical that day to day her orientation changes so dramatically in the absence of delirium and that her speech latency also fluctuates moment to moment. She is able to cognitively manipulate more complex questions about recent events but then states the year is 2074 or thinks the is July after she accurately describes the events leading to her hospitalization including specific quotes and slights she feels she experienced from her family. Suspect she has prominent dependency traits. A: Continues to deny symptoms of depression, no SI and future-oriented. Anxiety has also improved during this hospitalization, suspect due to decreased interpersonal stressors and conflict that can arise at home where she lives with daughter and grandson. Diagnostically presentation remains most consistent with impulsive attempt in setting of conflict with her daughter and suspect significant dependent and possible cluster B traits. Previous cognitive symptoms have improved significantly with reduction in Klonopin. Acute risk of self harm is low given denial of SI, future-oriented, stable sleep, improved mood, hopefulness, decrease in anxiety. Chronic risk is moderate given prior attempts, familial conflict, psychiatric co-morbid diagnoses. Discussed ways to address and reduce modifiable risk factors including continuing to engage with outpatient providers, using coping skills, working on communication skills/conflict resolution with daughter, finding opportunities to form meaningful connections with others outside the home, possibly considering future move to personal fci, and new referral for mental health case therapist for additional support at home. No longer requires 302 commitment. Overall, I spent a total of 45 minutes on this case including meeting with the patient, discussion with psych liason and case management, hospitalist, reviewing the chart and documentation. (1) Suicide attempt by drug overdose: (2) MDD (major depressive disorder), recurrent severe, without psychosis: (3) EVANS (generalized anxiety disorder): Plan -No longer meets 302 criteria, doesn't meet 303 commitment criteria and no longer meets criteria for inpatient psychiatry hospitalization -No longer requires 1-on-1 nor suicide precautions -Psych liason to confirm her outpatient psychiatry and therapy appointments -Plan for discharge home with her daughter, psych liason previously safety planned with daughter regarding securing medications and no access to lethal means in the home -Less confusion and more alert on reduced Klonopin dose of 0.5mg qnoon and 1mg PM and mood has remained stable and improved Interval History Identifying Information Lulu Zhong is a 68-year-old female history of generalized anxiety disorder, MDD with anxious distress, migraines, cognitive impairment, tardive dyskinesia who presents after an intentional overdose of her propranolol with concerns of being a suicide attempt. Ingestion occurred in the setting of familial conflict with daughter. Chief Complaint "I've loved it here". Subjective Subjective Patient was seen & assessed and interval progress reviewed. No significant cognitive deficits today. Reports her mood is good. Reflects on having felt good during this hospitalization which she attributes to medication changes and having people to talk to and "take care of me". Discussed challenge of conflict with her daughter and how she gets anxious or tearful when they fight. Denies that her daughter has ever been abusive or prevented her from accessing basic needs but she will yell at Lulu sometimes when she is frustrated. Anna reflects that her daughter often talks about issues they've had in the past and she wishes her daughter "could just leave the past in the past". Reports sleep has been good. States "whatever med you've been giving me, I haven't had a panic attack since I've been here". Discussed that we didn't make any medication changes except to decrease the Klonopin. Process that maybe what has helped in the different environment, which she agrees with. States she would be very interested in possibly living in an assisted living facility "I would go there in a second". Was agreeable to discussing this with case management as a future option. For now desires discharge home where she lives with her daughter and grandson. Continues to deny SI. Feels safe returning home. Reviewed crisis information and resources. Physical Exam Psychiatric Orientation: alert and oriented x 3 Apperance: appropriately dressed and appropriately groomed Eye Contact: good eye contact Motor Behavior: no abnormal motor movements Speech: normal rate/rhythm/volume of speech Affect: + anxious affect Mood: + anxious mood (about whether or not her daughter will want her to come home) Thought Process: clear/coherent thought process and + concrete thought process Thought Content: reality based without delusions Suicidal Thoughts: denies suicidal thoughts Homicidal Thoughts: denies homicidal thoughts Hallucinations: no auditory hallucinations and no visual hallucinations Insight: + fair insight Judgment: + limited judgement Vital Signs (Past 24 Hours) Last Vital Signs Temp 36.6 C 04/26/24 08:07 Pulse 104 H 04/26/24 08:07 Resp 20 04/26/24 08:07 BP 119/69 04/26/24 08:07 Pulse Ox 95 04/26/24 08:07 O2 Del Method Room Air 04/26/24 08:07 Results & Data (U) Current Inpatient Medications Current Inpatient Medications: Current Inpatient Medications Acetaminophen (Acetaminophen 325 Mg Tab) 650 mg PO QID PRN PRN Reason: pain/fever Stop: 05/21/24 01:15 Hydrocodone Bitart/Acetaminophen (Hydrocodone/Acetamophen 5/325mg Tab) 1 tab PO QID PRN PRN Reason: Pain Stop: 05/05/24 01:15 Last Admin: 04/23/24 14:52 Dose: 1 tab Aripiprazole (Aripiprazole 15 Mg Tab) 15 mg PO HS DANYELLE Stop: 05/21/24 20:59 Last Admin: 04/25/24 20:06 Dose: 15 mg Calcium Polycarbophil (Calcium Polycarbophil 625mg Tab) 625 mg PO DAILY DANYELLE Stop: 05/23/24 08:59 Last Admin: 04/26/24 08:01 Dose: 625 mg Cetirizine HCl (Cetirizine Hcl 10 Mg Tablet) 10 mg PO PM DANYELLE Stop: 05/21/24 20:59 Last Admin: 04/25/24 20:07 Dose: 10 mg Clonazepam (Clonazepam 0.5 Mg Tab) 0.5 mg PO DAILYBL DANYELLE Stop: 05/25/24 10:29 Last Admin: 04/26/24 10:35 Dose: 0.5 mg Clonazepam (Clonazepam 1 Mg Tab) 1 mg PO DAILYBD DANYELLE Stop: 05/25/24 15:29 Last Admin: 04/25/24 15:55 Dose: 1 mg Diclofenac Sodium (Diclofenac Sod 1% Gel 100 Gm Tube) 2 gm EXT Q4H DANYELLE; Protocol Stop: 05/22/24 09:59 Last Admin: 04/26/24 14:02 Dose: Not Given Docusate Sodium (Docusate Sodium 100 Mg Cap) 100 mg PO BID PRN PRN Reason: constipation Stop: 05/23/24 20:59 Last Admin: 04/26/24 08:01 Dose: 100 mg Duloxetine HCl (Duloxetine Hcl 20 Mg Cap) 20 mg PO QPM DANYELLE Stop: 05/21/24 20:59 Last Admin: 04/25/24 20:07 Dose: 20 mg Duloxetine HCl (Duloxetine Hcl 30 Mg Cap) 30 mg PO BID DANYELLE Stop: 05/21/24 08:59 Last Admin: 04/26/24 08:00 Dose: 30 mg Enoxaparin Sodium (Enoxaparin Inj 40 Mg/0.4 Ml Syr) 40 mg SQ Q24H [facility] Stop: 05/22/24 16:59 Last Admin: 04/25/24 18:12 Dose: 40 mg Miscellaneous (Estradiol 0.01% Cream: Order Awaiting Action) 1 each N/A QS [facility] Stop: 05/23/24 07:59 Last Admin: 04/26/24 08:01 Dose: Not Given Ondansetron HCl (Ondansetron Inj 2 Mg/Ml 2 Ml Vial) 4 mg IV Q6H PRN PRN Reason: Nausea And Vomiting Stop: 05/21/24 01:17 Last Admin: 04/25/24 20:13 Dose: 4 mg Pantoprazole Sodium (Pantoprazole 40 Mg Tab) 40 mg PO DAILYBB [facility] Stop: 05/21/24 06:29 Last Admin: 04/26/24 05:27 Dose: 40 mg Polyethylene Glycol (Polyethylene (Miralax) 17 Gm Pack) 17 gm PO DAILY PRN PRN Reason: Constipation Stop: 05/26/24 09:23 Topiramate (Topiramate 50 Mg Tab) 50 mg PO QPM DANYELLE Stop: 05/21/24 20:59 Last Admin: 04/25/24 20:06 Dose: 50 mg Tramadol HCl (Tramadol Hcl 50 Mg Tablet) 50 mg PO Q12 PRN PRN Reason: Pain Stop: 05/23/24 15:03 Last Admin: 04/24/24 16:39 Dose: 50 mg Trazodone HCl (Trazodone Hcl 100 Mg Tab) 200 mg PO HS [facility] Stop: 05/21/24 20:59 Last Admin: 04/25/24 20:07 Dose: 200 mg Vibegron (Vibegron 75 Mg Tab) 75 mg PO DAILY DANYELLE Stop: 05/21/24 08:59 Last Admin: 04/24/24 09:45 Dose: 75 mg
[2024-04-26] MEDS: POLYETHYLENE (MIRALAX) 17 GM PACK PO PRN (18:44)
--- NOTE | 2024-04-27 12:05 | Psychiatric Progress Note ---
Date of Service April 27, 2024 Impression / Recommendations Impression Lulu Zhong is a 68-year-old female history of generalized anxiety disorder, MDD with anxious distress, migraines, cognitive impairment, tardive dyskinesia who presents after an intentional overdose of her propranolol with concerns of being a suicide attempt. Ingestion occurred in the setting of familial conflict with daughter. Diagnostically seems most consistent with generalized anxiety disorder as well as co-morbid dependent personality disorder and likely cluster B traits exacerbated by conflict with her daughter and grandson. Much lower suspicion for dementia type process given improvement in cognitive deficits with lower dose of Klonopin and fluctuating symptoms seem to be another means of allowing others to make decisions or take responsibility for tasks she feels uncomfortable doing alone suspected to be driven by dependent PD. A: Mood remains stable, some increased anxiety today in setting of plan for discharge but continues to deny SI and this is anticipated given this is a transition. Processed that it is possible she will develop SI again in the future and that this may be exacerbated by interpersonal conflict or when she feels a sense of helplessness given her preference to be treating in a dependent manner. However, these factors are not felt to be modifiable with further medication adjustments nor inpatient hospitalization so outpatient therapy with additional supports is felt to be the most appropriate at this time, especially as further hospitalization can often worsen dependent traits. She may always be at a jail risk for harm to self, but there is not currently an indication for inpatient psychiatric treatment. At this time there are no clear factors for inpatient treatment to modify, this can reinforce maladaptive coping skills and lead to worsening of acute and chronic risk, this is often contraindicated due to the worsening of the patient's prognosis, there is no acute risk to modify. As of now there is no clear acute/imminent risk of harm to self however, based upon any emergence of SI, symptoms of hopelessness/helplessness, or increased conflict at home, the chronic risk may then transform into a period of acuity. Provided education and recommendations of treatment options and behavioral strategies including coping skills, finding positive ways to connect with daughter, other sources of support which can help to reduce their acute and chronic risk which she was receptive to trying as an outpatient with her current supports and new CM referral addition. Also discussed resources and ways to add additional protective factors and positive supports to their life to reduce elements of chronic risk. Acute risk of self harm is low given denial of SI, future-oriented, stable sleep, improved mood, hopefulness, decrease in anxiety. Chronic risk is moderate given prior attempts, familial conflict, psychiatric co-morbid diagnoses, personality disorder component, suicide attempts as a means of seeking out dependent/attention needs in a maladaptive manner. Discussed ways to address and reduce modifiable risk factors including practicing alternative, healthier coping skills, continuing to engage with outpatient providers, working on co mmunication skills/conflict resolution with daughter, finding opportunities to form meaningful connections with others outside the home, finding ways to have more independence, possibly considering future move to personal long term, and new referral for mental health disability case manager for additional support at home. Safe for discharge from psychiatric standpoint. Overall, I spent a total of 55 minutes on this case including meeting with the patient, discussion with psych liason and case management, hospitalist, reviewing the chart and documentation. (1) Suicide attempt by drug overdose: (2) MDD (major depressive disorder), recurrent severe, without psychosis: (3) EVANS (generalized anxiety disorder): Plan -Safe for discharge from psychiatric standpoint -Outpatient psychiatry and therapy appointments confirmed and psych liason also reviewed these with her daughter -Plan for discharge home with her daughter, psych liason previously safety planned with daughter regarding securing medications and no access to lethal means in the home -Less confusion and more alert on reduced Klonopin dose of 0.5mg qnoon and 1mg PM and mood has remained stable and improved, recommend this be continued at lower dose in outpatient setting Interval History Identifying Information Lulu Zhong is a 68-year-old female history of generalized anxiety disorder, MDD with anxious distress, migraines, cognitive impairment, tardive dyskinesia who presents after an intentional overdose of her propranolol with concerns of being a suicide attempt. Ingestion occurred in the setting of familial conflict with daughter. Chief Complaint "I'm alright". Subjective Subjective Patient was seen & assessed and interval progress reviewed. Reports her mood is "alright", denies current SI but nervous about returning home which she attributes to liking how much care she got in the hospital. Collateral from her daughter to psych liason consistent with this as daughter noted that at home Lulu is responsible for helping with things around the house and cannot watch TV all day as she has been able to do in the hospital. Lulu wishes she could stay indefinitely in the hospital and worries that it's possible she could develop SI again in the future if she and her daughter have arguments or she feels lonely. Reviewed coping skills she could use and reviewed safety plan contacts should these thoughts develop again in the future. Reassurance and practicing coping skills again was helpful. Processed that having some anxious about the transition back home is very normal and she was appreciative of this. Reviewed that she has many reasons for living and deterrents. Reviewed things she is looking forward to doing and additional referral for case management services. She remains interested in possibility for assisted living options in the future and plans to work with her daughter to explore this. No new medication issues. Continues to have anxiety today, denies any depressive symptoms. Physical Exam Psychiatric Orientation: alert and oriented x 3 Apperance: appropriately dressed and appropriately groomed Eye Contact: good eye contact Motor Behavior: no abnormal motor movements Speech: normal rate/rhythm/volume of speech Affect: + anxious affect Mood: + anxious mood Thought Process: clear/coherent thought process and + concrete thought process Thought Content: reality based without delusions Suicidal Thoughts: denies suicidal thoughts Homicidal Thoughts: denies homicidal thoughts Hallucinations: no auditory hallucinations and no visual hallucinations Insight: + fair insight Judgment: + limited judgement Vital Signs (Past 24 Hours) Last Vital Signs Temp 36.8 C 04/27/24 07:34 Pulse 84 04/27/24 07:34 Resp 18 04/27/24 07:34 BP 135/77 04/27/24 07:34 Pulse Ox 96 04/27/24 07:34 O2 Del Method Room Air 04/27/24 07:34 Results & Data ([facility]) Current Inpatient Medications Current Inpatient Medications: Current Inpatient Medications Acetaminophen (Acetaminophen 325 Mg Tab) 650 mg PO QID PRN PRN Reason: pain/fever Stop: 05/21/24 01:15 Hydrocodone Bitart/Acetaminophen (Hydrocodone/Acetamophen 5/325mg Tab) 1 tab PO QID PRN PRN Reason: Pain Stop: 05/05/24 01:15 Last Admin: 04/23/24 14:52 Dose: 1 tab Aripiprazole (Aripiprazole 15 Mg Tab) 15 mg PO HS DANYELLE Stop: 05/21/24 20:59 Last Admin: 04/26/24 20:15 Dose: 15 mg Calcium Polycarbophil (Calcium Polycarbophil 625mg Tab) 625 mg PO DAILY DANYELLE Stop: 05/23/24 08:59 Last Admin: 04/27/24 08:08 Dose: 625 mg Cetirizine HCl (Cetirizine Hcl 10 Mg Tablet) 10 mg PO PM DANYELLE Stop: 05/21/24 20:59 Last Admin: 04/26/24 20:16 Dose: 10 mg Clonazepam (Clonazepam 0.5 Mg Tab) 0.5 mg PO DAILYBL DANYELLE Stop: 05/25/24 10:29 Last Admin: 04/27/24 10:39 Dose: 0.5 mg Clonazepam (Clonazepam 1 Mg Tab) 1 mg PO DAILYBD DANYELLE Stop: 05/25/24 15:29 Last Admin: 04/26/24 15:45 Dose: 1 mg Diclofenac Sodium (Diclofenac Sod 1% Gel 100 Gm Tube) 2 gm EXT Q4H [facility]; Protocol Stop: 05/22/24 09:59 Last Admin: 04/27/24 10:39 Dose: Not Given Docusate Sodium (Docusate Sodium 100 Mg Cap) 100 mg PO BID PRN PRN Reason: constipation Stop: 05/23/24 20:59 Last Admin: 04/27/24 08:07 Dose: 100 mg Duloxetine HCl (Duloxetine Hcl 20 Mg Cap) 20 mg PO QPM DANYELLE Stop: 05/21/24 20:59 Last Admin: 04/26/24 20:15 Dose: 20 mg Duloxetine HCl (Duloxetine Hcl 30 Mg Cap) 30 mg PO BID [facility] Stop: 05/21/24 08:59 Last Admin: 04/27/24 08:07 Dose: 30 mg Enoxaparin Sodium (Enoxaparin Inj 40 Mg/0.4 Ml Syr) 40 mg SQ Q24H [facility] Stop: 05/22/24 16:59 Last Admin: 04/26/24 17:37 Dose: 40 mg Miscellaneous (Estradiol 0.01% Cream: Order Awaiting Action) 1 each N/A QS [facility] Stop: 05/23/24 07:59 Last Admin: 04/27/24 08:08 Dose: Not Given Ondansetron HCl (Ondansetron Inj 2 Mg/Ml 2 Ml Vial) 4 mg IV Q6H PRN PRN Reason: Nausea And Vomiting Stop: 05/21/24 01:17 Last Admin: 04/25/24 20:13 Dose: 4 mg Pantoprazole Sodium (Pantoprazole 40 Mg Tab) 40 mg PO DAILYBB DANYELLE Stop: 05/21/24 06:29 Last Admin: 04/27/24 05:38 Dose: 40 mg Polyethylene Glycol (Polyethylene (Miralax) 17 Gm Pack) 17 gm PO DAILY PRN PRN Reason: Constipation Stop: 05/26/24 09:23 Last Admin: 04/27/24 08:07 Dose: 17 gm Topiramate (Topiramate 50 Mg Tab) 50 mg PO QPM DANYELLE Stop: 05/21/24 20:59 Last Admin: 04/26/24 20:16 Dose: 50 mg Tramadol HCl (Tramadol Hcl 50 Mg Tablet) 50 mg PO Q12 PRN PRN Reason: Pain Stop: 05/23/24 15:03 Last Admin: 04/24/24 16:39 Dose: 50 mg Trazodone HCl (Trazodone Hcl 100 Mg Tab) 200 mg PO HS DANYELLE Stop: 05/21/24 20:59 Last Admin: 04/26/24 20:15 Dose: 200 mg Vibegron (Vibegron 75 Mg Tab) 75 mg PO DAILY DANYELLE Stop: 05/21/24 08:59 Last Admin: 04/27/24 08:08 Dose: 75 mg
--- NOTE | 2024-04-27 13:40 | Discharge Summary ---
Discharge Summary Date of Service April 27, 2024 Principal Dx & Hospital Course #1 = Principal Diagnosis (1) Intentional overdose of beta-adrenergic blocking drug: Ms Zhogn is a 68 year old woman with history significant for hyperlipidemia, anxiety/mood disorder, migraine, tardive dyskinesia, cognitive impairment as per records who was admitted for observation 2/2 intentional BB ingestion. Patient took unquantified amount of propranolol tablets in the bottle after having an argument with her daughter. Patient with fall after episode of diarrhea 2/2 diet (patient reported to be lactose intolerant and ate lactose product for breakfast). CT negative. Patient without any hemodynamic compromise or other acute concerns from a medical standpoint. Psych followed closely to aid in dispo.All inpatient [facility] psych units have declined. 302 04/27 and patient discharged home. Psychiatry worked with daughter and patient to come up with care plan and plan to pursue placement given interpersonal conflicts ongoing in home. #Intentional BB Overdose Secondary to suicidality poison control involved 04/21, cleared in the afternoon, no pressor requirements CTM Patient 302 , no longer actively w/ SI Psych performing bed search for inpt [facility] psych #Severe anxiety continue home regimen Klonipin reduced per psych propranolol d/c #Mechanical fall CT head negative, XR knee normal #Neck pain possible strain without recollection of trauma #hx migraine, patient denies headache symptoms tylenol and tramadol prn #tardive dyskinesia #cognitive impairment as per records CTM Patient medically stable. Notes For Next Care Provider Medication Changes From Visit d/c propranolol reduced klonipin 0.5mg BID Admission HPI Per Admitting Provider History obtained from patient and records. Limited history from patient secondary to cognitive impairment. Medical history significant for hyperlipidemia, anxiety/mood disorder, migraine, tardive dyskinesia, cognitive impairment as per records. Last confinement December 2022 under orthopedic service for elective left shoulder surgery. No postop complications. Patient took unquantified amount of propranolol tablets in the bottle after having an argument with her daughter. Medication being prescribed for patient's anxiety/restlessness by her [facility] psychiatrist. Patient was feeling upset. Denies headache, chest pain, SOB. Achy neck pain with arm and leg weakness without recollection of recent trauma. Patient brought to ER for evaluation. Medical History as above Surgical History : Knee surgery, shoulder surgery, ARA, appendectomy Family History : Cirrhosis, alcoholism, heart disease, lung cancer, mood disorder, uterine cancer Personal/Social history : Non-smoker, no EtOH intake, disabled Admission Exam Per Admitting Provider GENERAL: Slightly uncomfortable, flat affect, no respiratory distress SKIN: Normal color, warm HEENT: [place] palpebral conjunctivae, no ptosis, dry buccal mucosa NECK : Some limitation in motion,, cervical tenderness CHEST : CTA, no tenderness HEART : Bradycardic, no obvious murmurs ABDOMEN: Some distention, nontender EXTREMITIES : No LE swelling/tenderness, no other conspicuous deformities noted NEUROLOGIC : Oriented to place, slowed response to some questions, no facial asymmetry, MMTs BUE/BLE 4/5 Discharge Exam Constitutional WD/WN, vitals as above Respiratory normal respiratory effort, lungs clear to auscultation Cardiovascular RRR, no murmur, no edema Neurologic PERRL, EOMI, accommodation nl, no face palsy, no dysarthria Updated Medication List Medication Instructions Recorded Confirmed Type omeprazole 40 mg capsule,delayed 40 mg PO DAILYBB 10/19/22 04/20/24 History release trazodone 100 mg tablet 200 mg PO HS 10/19/22 04/20/24 History clonazepam 0.5 mg tablet (Klonopin) 0.5 mg PO BID Anxiety 11/22/22 04/22/24 History alendronate 70 mg tablet 70 mg PO WK 04/20/24 04/20/24 History aripiprazole 15 mg tablet 15 mg PO HS 04/20/24 04/20/24 History calcium polycarbophil 625 mg 625 mg PO DAILY 04/20/24 04/20/24 History tablet (FiberCon) cranberry extract-vitamin C 250 1 cap PO DAILY PRN NEEDED 04/20/24 04/20/24 History mg-60 mg capsule (Azo Cranberry Plus Vit C) duloxetine 20 mg capsule,delayed 20 mg PO QPM 04/20/24 04/20/24 History release duloxetine 30 mg capsule,delayed 30 mg PO BID 04/20/24 04/20/24 History release estradiol 0.01% (0.1 mg/gram) 0.5 g vaginal BID 04/20/24 04/20/24 History vaginal cream hydrocodone 5 mg-acetaminophen 325 1 tab PO Q6H PRN Pain 04/20/24 04/20/24 History mg tablet levocetirizine 5 mg tablet (Xyzal) 5 mg PO PM 04/20/24 04/20/24 History mirabegron 50 mg tablet,extended 50 mg PO QAM 04/20/24 04/20/24 History release 24 hr (Myrbetriq) polyethylene glycol 3350 17 119 g PO DAILY PRN Constipation 04/20/24 04/20/24 History gram/dose oral powder (Miralax) topiramate 50 mg tablet 50 mg PO QPM 04/20/24 04/20/24 History Hospital Stay Data Consultations 04/20/24 22:57 ED Decision to Admit Stat 04/21/24 01:56 Consult Psychiatry Routine Diagnostic Imagining Performed 04/21/24 00:45 CT cervical spine wo con Stat 04/22/24 07:[address] [CT head/brain wo con] Routine 04/22/24 09:32 CT head/brain wo con Urgent Pending Results Patient Have Any Pending Studies at Discharge: No Discharge Instructions Given to Patient (Per Discharging Provider) You were admitted for monitoring after taking too many of your Propranolol. Your heart rates and your vital signs remained stable. There were no changes to your medications outside of discontinuing propranolol. Please follow up with Psychiatry as an outpatient. Total Time Total Time Spent Total Time Spent (In Minutes): 35
[2024-04-27 15:02] LABS: MDA negative; MDEA negative; MDMA (Ecstasy) Urine, Confirm negative
== END 2024-04-27 16:47 | disposition home or self-care (01) | DRG 918 ==
LOC: EDINP 21:30 → ED 21:30 → 2W 04-22 23:11 → 3E 04-24 15:14

== ENCOUNTER 2024-08-25 18:06 | Inpatient (IN) ==
--- NOTE | 2024-08-25 18:16 | Emergency Department Note ---
Impression & Plan Bilateral hip fractures, Fall, Weakness, Pain of both hip joints, Acute dehydration ED Provider Note NAME: SYED OLIVER AGE: 68 SEX: F : 1955 ARRIVES VIA: Walk-In INFORMANT: Patient, Daughter ED PROVIDER(S): Edu Easley MD CHIEF COMPLAINT: Fall MEDICAL DECISION MAKING: Patient presents due to concern for fall and weakness. IV was established and blood work was obtained. Patient did have CT of the head cervical spine and lumbar spine completed along with plain films of the bilateral hips and pelvis as well as left forearm. CT head does not show obvious ICH patient's blood work shows a normal white count H&H and platelet count. The patient's kidney function is unremarkable. LFTs unremarkable urinalysis does not show evidence of obvious infection. BioFire is negative. Patient's CT of the cervical spine chest x-ray forearm x- ray CT head are negative. Hip x-ray shows subtle impacted subcapital femoral neck fractures bilaterally versus projectional artifact. Patient was ordered CTs of the hips. CT lumbar spine negative. CT of the hips do show fractures. I did speak with the on-call medicine service Dr. Presley and the patient was admitted to the medicine service. Discussion w/ other healthcare providers: None Prior /Outside records reviewed: none Differential diagnosis: Infection, dehydration, metabolic abnormality, hypo/hyperglycemia, electrolyte imbalance, anemia, UTI, pneumonia, thyroid dysfunction among others were considered. Diagnostics, as interpreted by me: ECG:Normal sinus rhythm, rate of 87, normal intervals, normal axis, no ST elevations. Cardiac monitoring: An order was placed for continuous cardiac monitoring. The monitor shows a rate of 82 with sinus rhythm. Patient was placed on pulse oximetry Medical decision rules: None Imaging studies: I informally interpreted the patient's chest x-ray does not show obvious pneumonia or pneumothorax with formal report to follow. HPI: Patient presents due to concern for acute increasing weakness as well as a fall. She does live with her daughter is noticed she is "not been all there." This is been ongoing for the last several days. The patient states that she has been drinking of warm water but not having much of an appetite. Patient without any chest pains or shortness of breath no nausea vomiting or diarrhea. The patient's legs have been giving out on her and the patient has been increasingly weak. Patient reportedly slid out of her bed and got stuck between her bed and her nightstand. Patient was out without any shortness of breath but has had some cough with productive phlegm. Patient is non-smoker does not use any alcohol. PAST MEDICAL HISTORY: See Below PAST SURGICAL HISTORY: See Below SOCIAL HISTORY: See Below HOME MEDICATIONS: See Below ALLERGIES: See Below VITALS: See Below PHYSICAL EXAMINATION: GENERAL: NAD, non-toxic. EYE EXAM: Normal conjunctiva. PERRL, no anisocoria and EOM's grossly intact w/o pain. Head: Left-sided forehead hematoma/contusion. OROPHARYNX: Moist mucus membranes, grossly normal dentition. NECK: Trachea midline, no stridor. Supple, no nuchal rigidity, no adenopathy, non-tender. No signs of meningismus. FROM of the neck with good chin to chest and neck extension. No midline C-spine TTP. Chest: No reproducible anterior chest wall pain. LUNGS: Clear to auscultation. Normal chest wall mechanics. HEART: NSR, no MRG. ABDOMEN: Abdomen soft, non-tender, no masses, no rebound or guarding. BACK: No CVA TTP. No midline thoracic lumbar TTP. Mild mid lumbar TTP without obvious step-offs. SKIN: No rashes and no bruising. UPPER EXTREMITIES: Upper extremities are grossly normal. Left upper extremity forearm skin tear with mild TTP no obvious deformity neurovasc intact distally. LOWER EXTREMITIES: Grossly normal, no edema. Pain to the bilateral hips no obvious deformity. Able to raise both legs off the bed. NEURO EXAM: A&O x3, cranial nerves II-XII grossly intact, normal speech, moves all 4 extremities. Past Med/Surg History Problem List (Updated 08/26/24 @ 16:53 by Edu Easley MD) Ambulatory dysfunction Bilateral hip fractures (Acute) Fracture of femoral neck, right Fracture of femoral neck, left Acute dehydration (Acute) Pain of both hip joints (Acute) Weakness (Acute) Fall (Acute) Suicide attempt by drug overdose MDD (major depressive disorder), recurrent severe, without psychosis Intentional overdose of beta-adrenergic blocking drug Right leg injury (Acute) Status post reverse total replacement of left shoulder (~11/2022) COVID-19 (Acute) Major depressive disorder, recurrent, severe without psychotic features EVANS (generalized anxiety disorder) Encounter for pre-operative examination Chronic cholecystitis with calculus Proximal humerus fracture Medical History Overdose Concussion fall down stairs 11/26/22, ct head negative Rib fractures 4-8th ribs 11/26/22, no pneumothorax per records Dementia Hyperlipidemia Stress incontinence Seizure "CAN'T REMEMBER LAST SEIZURE, BEEN A LONG TIME">DOES NOT FOLLOW WITH NEUROLOGIST Migraine Arthritis Bipolar disorder Anxiety and depression Cardiac murmur NO CARDS No murmur noted in ER on 10/20/22 or during GI office visit 10/14/22 History of COVID-19 08/25/22 per records at [facility] >symptoms resolved Depression with suicidal ideation Anxiety Surgical History Hx laparoscopic cholecystectomy Family history of reaction to anesthesia MOTHER>NAUSEA Nausea and vomiting after administration of anesthetic agent History of hysterectomy History of tonsillectomy H/O knee surgery RT Social History Smoking Status: Never smoker Second Hand Exposure: Yes; Do You Dip or Chew Tobacco: No; Hx Alcohol Use: No Hx Substance Use: No Preferred Language: [place] Communication Ability: Effective Leaf Sorter Required: No Beliefs That Will Affect Care: None Current Living Situation: Other Current Living Situation Comment: lives with daughter Feels Safe at Home: Yes Gender Identity: Female Assistive Devices: Cane and Walker Allergies Allergies Allergy/AdvReac Type Severity Reaction Status Date / Time morphine AdvReac Intermediate room Verified 04/20/24 22:14 spins,violent vomiting prochlorperazine AdvReac Intermediate GENERALIZED Verified 04/20/24 22:14 [From Compazine] WEAKNESS Home Meds Home Medications Medication Instructions Recorded Confirmed alendronate 70 mg tablet 70 mg PO WK 08/25/24 08/25/24 aripiprazole 15 mg tablet 15 mg PO HS 08/25/24 08/25/24 clonazepam 0.5 mg tablet 0.5 mg PO BID PRN Anxiety 08/25/24 08/25/24 duloxetine 30 mg capsule,delayed 30 mg PO BID 08/25/24 08/25/24 release estradiol 0.01% (0.1 mg/gram) 1 appful vaginal 2XWK 08/25/24 08/25/24 vaginal cream folic acid 1 mg tablet 1 mg PO DAILY 08/25/24 08/25/24 levocetirizine 5 mg tablet 5 mg PO HS 08/25/24 08/25/24 lubiprostone 24 mcg capsule 24 mcg PO BID 08/25/24 08/25/24 mirabegron 50 mg tablet,extended 50 mg PO DAILY 08/25/24 08/25/24 release 24 hr (Myrbetriq) omeprazole 40 mg capsule,delayed 40 mg PO DAILY 08/25/24 08/25/24 release topiramate 50 mg tablet 50 mg PO DAILY 08/25/24 08/25/24 trazodone 100 mg tablet 150 mg PO HS 08/25/24 08/25/24 Results & Data (ED) Vital Signs Vital Signs - 24 hr 08/25/24 18:10 08/25/24 18:48 08/25/24 18:48 Temperature 36.3 C L Temperature Source Temporal Artery Scan Pulse Rate 102 H Pulse Rate [Finger] 89 Pulse Rhythm [Finger] Pulse Strength [Finger] Respiratory Rate 17 16 Respiratory Effort / Characteristics Non-Labored Retracting Respiratory Depth Normal Respiratory Pattern Blood Pressure 125/67 Blood Pressure [Right Arm] 121/79 Blood Pressure Mean 86 Blood Pressure Mean [Right Arm] 93 Pulse Oximetry 96 96 96 Oxygen Delivery Method Room Air Room Air Room Air Sepsis Recent Fever Within 48 Hours No Sepsis New/Unexplained Change in Mental Status N/A Sepsis Action Taken by Nursing No Action Required 08/25/24 20:17 08/25/24 20:30 08/25/24 21:30 Temperature Temperature Source Pulse Rate 89 Pulse Rate [Finger] 90 93 H Pulse Rhythm [Finger] Regular Pulse Strength [Finger] Normal Respiratory Rate 16 18 Respiratory Effort / Characteristics Non-Labored Spontaneous Non-Labored Respiratory Depth Normal Normal Respiratory Pattern Regular Blood Pressure Blood Pressure [Right Arm] 145/78 H 156/83 H Blood Pressure Mean Blood Pressure Mean [Right Arm] 100 107 Pulse Oximetry 96 96 Oxygen Delivery Method Room Air Room Air Sepsis Recent Fever Within 48 Hours Sepsis New/Unexplained Change in Mental Status Sepsis Action Taken by Group Home Medications Current Medication List: was personally reviewed by me Laboratory Data Attestation: I reviewed the patient's lab results. 08/26/24 05:59 08/26/24 05:59 Lab Results 08/25/24 08/25/24 Range/Units 18:45 19:40 WBC 7.61 (4.8-10.8) K/ul RBC 4.22 (4.20-5.40) M/uL Hgb 13.0 (12.0-16.0) g/dl Hct 38.1 (37.0-47.0) % MCV 90.3 (80.0-100.0) fL MCH 30.8 (25.0-34.0) pg MCHC 34.1 (32.0-36.0) g/dL RDW Std Deviation 41.9 (36.4-46.3) fL RDW Coeff of Zonia 12.9 (11.5-14.5) % Plt Count 189 (130-400) K/uL MPV 9.3 L (9.4-12.4) fL Immature Gran % (Auto) 0.3 % Neut % (Auto) 77.7 % Lymph % (Auto) 14.6 % Alfalfa % (Auto) 6.0 % Eos % (Auto) 0.3 % Baso % (Auto) 1.1 % Neut # (Auto) 5.92 (1.40-6.50) K/uL Lymph # (Auto) 1.11 L (1.20-3.40) K/uL Alfalfa # (Auto) 0.46 (0.11-0.59) K/uL Eos # (Auto) 0.02 (0.00-0.50) K/uL Baso # (Auto) 0.08 (0.00-0.20) K/uL Immature Gran # (Auto) 0.02 (0.01-0.20) K/uL Sodium 141 (136-145) mmol/L Potassium 3.6 (3.5-5.1) mmol/L Chloride 108 H (98-107) mmol/L Carbon Dioxide 27 (21-32) mmol/L Anion Gap 6 (3-11) BUN 19 (6-23) mg/dl Creatinine 0.86 (0.6-1.2) mg/dl Est Cr Clr Drug Dosing Not Reportable eGFR 72.63 BUN/Creatinine Ratio 22.1 H (10-20) Glucose 125 H (70-99(Fasting)) mg/dl Calcium 9.8 (8.6-10.3) mg/dl Magnesium 2.0 (1.7-2.4) mg/dl Total Bilirubin 0.6 (0.2-1.0) mg/dl AST 14 (13-39) U/L ALT 12 (7-52) U/L Alkaline Phosphatase 57 (34-104) U/L Total Creatine Kinase 72 (26-192) U/L Total Protein 6.7 (6.0-8.3) gm/dl Albumin 4.0 (3.4-5.0) gm/dl Globulin 2.7 (2.5-4.0) gm/dl Albumin/Globulin Ratio 1.5 (0.9-2) 25-OH Vitamin D Total Cancelled TSH 1.477 (0.300-4.500) uIu/ml Urine Color Yellow Urine Appearance Clear (Clear) Urine pH 6.5 (4.5-7.5) Ur Specific [place] 1.018 (1.000-1.030) Urine Protein Negative (Negative) Urine Glucose (UA) Negative (Negative) Urine Ketones Negative (Negative) Urine Blood Negative (Negative) Urine Nitrite Negative (Negative) Urine Bilirubin Negative (Negative) Urine Urobilinogen Negative (Negative) Ur Leukocyte Esterase Trace H (Negative) Urine WBC (Auto) 0-5 (0-5) /hpf Urine RBC (Auto) 0-2 (0-2) /hpf U Hyaline Cast (Auto) 0-2 (0-2) /lpf U Epithel Cells (Auto) 3-5 H (0-2) /hpf Urine Bacteria (Auto) None Seen (None Seen) Adenovirus (PCR) Not Detected (NotDetected) B. pertussis DNA (PCR) Not Detected (NotDetected) B.parapertussis DNA PCR Not Detected (NotDetected) C. pneumoniae DNA (PCR) Not Detected (NotDetected) Coronavirus OC43 (PCR) Not Detected (NotDetected) Coronavirus HKU1 (PCR) Not Detected (NotDetected) Coronavirus 229E (PCR) Not Detected (NotDetected) SARS-CoV-2 (PCR) Not Detected (NotDetected) Coronavirus NL63 (PCR) Not Detected (NotDetected) Human Metapneumovir PCR Not Detected (NotDetected) Influenza Type A (PCR) Not Detected (NotDetected) Influenza Type B (PCR) Not Detected (NotDetected) M. pneumoniae (PCR) Not Detected (NotDetected) Parainfluenza 1 (PCR) Not Detected (NotDetected) Parainfluenza 2 (PCR) Not Detected (NotDetected) Parainfluenza 3 (PCR) Not Detected (NotDetected) Parainfluenza 4 (PCR) Not Detected (NotDetected) RSV (PCR) Not Detected (NotDetected) Entero/Rhino (PCR) Not Detected (NotDetected) Administered Medications Acetaminophen (Acetaminophen 325 Mg Tab) 650 mg PO Q4H PRN PRN Reason: pain/fever Stop: 09/25/24 00:39 Last Admin: 08/26/24 13:42 Dose: 650 mg Documented By: SHONDA Duloxetine HCl (Duloxetine Hcl 30 Mg Cap) 30 mg PO BID [facility] Stop: 09/25/24 08:59 Last Admin: 08/26/24 07:48 Dose: Not Given Documented By: SHONDA Folic Acid (Folic Acid 1 Mg Tab) 1 mg PO DAILY [facility] Stop: 09/25/24 08:59 Last Admin: 08/26/24 07:48 Dose: Not Given Documented By: SHONDA Hydromorphone HCl (Hydromorphone Inj 0.5 Mg/0.5 Ml Syr) 0.5 mg IV Q6H PRN PRN Reason: Severe Pain (Scale 7, 8, 9,10) Stop: 09/09/24 00:39 Last Admin: 08/26/24 07:45 Dose: 0.5 mg Documented By: Admin: 08/26/24 01:00 Dose: 0.5 mg Documented By: ABDOUL Dextrose/Sodium Chloride (D5w And 1/2nss) 1,000 mls @ 80 mls/hr IV .[id number] [facility] Stop: 08/27/24 00:39 Last Admin: 08/26/24 13:42 Dose: 80 mls/hr Documented By: Infusion: 08/26/24 13:29 Dose: Infused Documented By: Admin: 08/26/24 00:59 Dose: 80 mls/hr Documented By: ABDOUL Sodium Chloride (Nss) 1,000 mls @ 15 mls/hr IV .Q24H [facility] Stop: 08/27/24 08:14 Last Admin: 08/26/24 16:33 Dose: 15 mls/hr Documented By: CHRIS Lubiprostone (Lubiprostone 8 Mcg Cap) 24 mcg PO BID [facility] Stop: 09/25/24 08:59 Last Admin: 08/26/24 07:48 Dose: Not Given Documented By: SHONDA Ondansetron HCl (Ondansetron Inj 2 Mg/Ml 2 Ml Vial) 4 mg IV Q4H PRN PRN Reason: Nausea And Vomiting Stop: 09/25/24 14:03 Last Admin: 08/26/24 14:38 Dose: 4 mg Documented By: SHONDA Pantoprazole Sodium (Pantoprazole 40 Mg Tab) 40 mg PO DAILY [facility] Stop: 09/25/24 08:59 Last Admin: 08/26/24 07:48 Dose: Not Given Documented By: SHONDA Topiramate (Topiramate 50 Mg Tab) 50 mg PO DAILY [facility] Stop: 09/25/24 08:59 Last Admin: 08/26/24 07:48 Dose: Not Given Documented By: SHONDA Vibegron (Vibegron 75 Mg Tab) 75 mg PO DAILY [facility] Stop: 09/25/24 08:59 Last Admin: 08/26/24 07:48 Dose: Not Given Documented By: SHONDA Discontinued Medications Acetaminophen (Acetaminophen 500 Mg Tab) 1,000 mg PO NOW STA Stop: 08/25/24 18:31 Last Admin: 08/25/24 19:14 Dose: 1,000 mg Documented By: IVONNE Influenza Virus Vacc Triv Types A&B (Influenza Vacc [id number](65y+)/Pf (Iiv3) 0.5ml Syr) 0.5 ml IM .ONCE ONE Stop: 08/26/24 01:30 Last Admin: 08/26/24 07:33 Dose: Not Given Documented By: SHONDA Morphine Sulfate (Morphine Sulfate 2 Mg/Ml Carp) 2 mg IV NOW STA Stop: 08/25/24 18:31 Last Admin: 08/25/24 19:15 Dose: 2 mg Documented By: IVONNE Imaging Data Radiologist's Impression: Cervical Spine CT 08/25/24 18:30 Exam(s): CT C SPINE EXAM: CT Cervical Spine Without Intravenous Contrast CLINICAL HISTORY: Reason for exam: fall. TECHNIQUE: Axial computed tomography images of the cervical spine without intravenous contrast. CTDI is 25.45 mGy and DLP is 537.91 mGy-cm. Automated exposure control was utilized for the study. A dose lowering technique was utilized adhering to the principles of ALARA. COMPARISON: 04/21/24 FINDINGS: Vertebrae: No acute fracture or malalignment. Discs/spinal canal/neural foramina: No acute process. Degenerative changes as before Soft tissues: Unremarkable. IMPRESSION: No acute fracture or malalignment. Electronically signed by: Gaviota Aparicio M.D. 08/25/24 20:29 PM Chest X-Ray 08/25/24 18:30 Exam(s): XR CXR 1 VIEW EXAM: XR Chest, 1 View CLINICAL HISTORY: Reason for exam: weakness. TECHNIQUE: Frontal view of the chest. COMPARISON: 04/20/24. FINDINGS: Lungs: Eventration in the diagram, right greater than left . No confluent consolidation or overt edema. Pleural space: No pleural effusion. No pneumothorax. Mediastinum: Unremarkable. Bones/joints: No acute fracture. Left shoulder prosthesis. Upper abdomen: Unremarkable as visualized. IMPRESSION: No acute cardiopulmonary disease. Electronically signed by: Gaviota Aparicio M.D. 08/25/24 19:20 PM Forearm X-Ray 08/25/24 18:30 Exam(s): XR LEFT FOREARM, 2 views EXAM: XR Left Forearm, 2 Views CLINICAL HISTORY: Reason for exam: L skin tear. TECHNIQUE: Frontal and lateral views of the left forearm. COMPARISON: No relevant prior studies available. FINDINGS: Bones/joints: No acute fracture. Osteopenia. Soft tissues: No radiodense foreign body. IMPRESSION: No acute fracture. Electronically signed by: Gaviota Aparicio M.D. 08/25/24 19:[address] 08/25/24 18:30 Exam(s): CT HEAD Without Contrast EXAM: CT Head Without Intravenous Contrast CLINICAL HISTORY: Reason for exam: fall, L forehead contusion. TECHNIQUE: Axial computed tomography images of the head/brain without intravenous contrast. CTDI is 35.65 mGy and DLP is 624.41 mGy-cm. Automated exposure control was utilized for the study. A dose lowering technique was utilized adhering to the principles of ALARA. COMPARISON: 04/22/24. FINDINGS: Brain: No intracranial hemorrhage. Senescent changes with small vessel disease. Ventricles: No hydrocephalus. Bones/joints: No acute fracture. Soft tissues: Soft tissue swelling in the left frontal scalp-forehead. Sinuses: No acute sinusitis. Mastoid air cells: No mastoid effusion. Orbits: Cataract surgery. IMPRESSION: No acute intracranial hemorrhage. Electronically signed by: Gaviota Aparicio M.D. 08/25/24 20:26 PM Hip/Pelvis X-Ray 08/25/24 18:30 Exam(s): XR BILATERAL HIP + PELVIS, 1 view EXAM: XR Bilateral Hips With Pelvis When Performed, 2 or 3 Views CLINICAL HISTORY: Reason for exam: b/l hip pain. TECHNIQUE: Three or four views of the bilateral hips with pelvis when performed. COMPARISON: No relevant prior studies available. FINDINGS: Bones/joints: Subtle impacted subcapital femoral neck fractures bilaterally versus projectional artifact. Soft tissues: No radiodense foreign body. Vasculature: Dystrophic calcification and phleboliths in the pelvis. IMPRESSION: Subtle impacted subcapital femoral neck fractures bilaterally versus projectional artifact. Cross-sectional imaging is more sensitive and can further assess as clinically warranted. Electronically signed by: Gaviota Aparicio M.D. 08/25/24 20:20 PM Discharge Plan Visit Data Chief Complaint: Fall Stated Complaint: FALL, HIT JAW, CUT SKIN ON LT ARM, HIP, BRUISE ON ED Provider: Edu Easley Discharge Problem: Bilateral hip fractures, Fall, Weakness, Pain of both hip joints, Acute dehydration Patient Disposition: Admitted As Inpatient Discharge Instructions Interventions: ED Discharge Assessment Last Done: 08/25/24 23:30 Discharge Problem: Bilateral hip fractures Qualifiers: Encounter type: initial encounter Fracture type: closed Qualified Code(s): S 72.001A - Fracture of unspecified part of neck of right femur, initial encounter for closed fracture; S72.002A - Fracture of unspecified part of neck of left femur, initial encounter for closed fracture Fall Qualifiers: Encounter type: sequela Qualified Code(s): W19.XXXS - Unspecified fall, sequela
[2024-08-25 19:05] LABS: Basophils # (auto) 0.08 K/uL (0.00-0.20); Basophils % (auto) 1.1 %; Eosinophils # (auto) 0.02 K/uL (0.00-0.50); Eosinophils % (auto) 0.3 %; Hematocrit (blood only) 38.1 % (37.0-47.0); Immature Granulocytes # (auto) 0.02 K/uL (0.01-0.20); Immature Granulocytes % (auto) 0.3 %; Lymphocytes # (auto) 1.11 K/uL (1.20-3.40); Lymphocytes % (auto) 14.6 %; Mean Corpuscular Hemoglobin 30.8 pg (25.0-34.0); Mean Corpuscular Hgb Conc 34.1 g/dL (32.0-36.0); Mean Corpuscular Volume 90.3 fL (80.0-100.0); Mean Platelet Volume 9.3 fL (9.4-12.4); Monocytes # (auto) 0.46 K/uL (0.11-0.59); Neutrophils # (auto) 5.92 K/uL (1.40-6.50); Neutrophils % (auto) 77.7 %; Platelet Count 189 K/uL (130-400); RDW Coefficient of Variation 12.9 % (11.5-14.5); RDW Standard Deviation 41.9 fL (36.4-46.3); Red Blood Count 4.22 M/uL (4.20-5.40); White Blood Count 7.61 K/ul (4.8-10.8)
[2024-08-25] MEDS: ACETAMINOPHEN 500 MG TAB PO STA (19:14)
[2024-08-25] MEDS: MoRPHine SULFATE 2 MG/ML CARP IV STA (19:15)
[2024-08-25 19:21] LABS: Alanine Aminotransferase 12 U/L (7-52); Albumin Globulin Ratio 1.5 (0.9-2); Alkaline Phosphatase 57 U/L (34-104); Anion Gap 6 (3-11); Aspartate Aminotransferase 14 U/L (13-39); BUN Creatinine Ratio 22.1 (10-20); Bilirubin,Total 0.6 mg/dl (0.2-1.0); Blood Urea Nitrogen 19 mg/dl (6-23); Calcium 9.8 mg/dl (8.6-10.3); Carbon Dioxide 27 mmol/L (21-32); Chloride 108 mmol/L (98-107); Creatine Kinase 72 U/L (26-192); Globulin 2.7 gm/dl (2.5-4.0); Glucose 125 mg/dl (70-99(Fasting)); Potassium 3.6 mmol/L (3.5-5.1); Sodium 141 mmol/L (136-145); Total Protein 6.7 gm/dl (6.0-8.3)
--- NOTE | 2024-08-25 19:21 | XRay Report ---
Exam(s): XR CXR 1 VIEW EXAM: XR Chest, 1 View CLINICAL HISTORY: Reason for exam: weakness. TECHNIQUE: Frontal view of the chest. COMPARISON: 04/20/24. FINDINGS: Lungs: Eventration in the diagram, right greater than left . No confluent consolidation or overt edema. Pleural space: No pleural effusion. No pneumothorax. Mediastinum: Unremarkable. Bones/joints: No acute fracture. Left shoulder prosthesis. Upper abdomen: Unremarkable as visualized. IMPRESSION: No acute cardiopulmonary disease. Electronically signed by: Gaviota Aparicio M.D. 08/25/24 19:20 PM
--- NOTE | 2024-08-25 19:22 | XRay Report ---
Exam(s): XR LEFT FOREARM, 2 views EXAM: XR Left Forearm, 2 Views CLINICAL HISTORY: Reason for exam: L skin tear. TECHNIQUE: Frontal and lateral views of the left forearm. COMPARISON: No relevant prior studies available. FINDINGS: Bones/joints: No acute fracture. Osteopenia. Soft tissues: No radiodense foreign body. IMPRESSION: No acute fracture. Electronically signed by: Gaviota Aparicio M.D. 08/25/24 19:21 PM
[2024-08-25 19:36] LABS: Thyroid Stimulating Hormone 1.477 uIu/ml (0.300-4.500)
[2024-08-25 20:01] LABS: Appearance Urine Clear (Clear); Bacteria Urine Automated None Seen (None Seen); Bilirubin Urine Negative (Negative); Blood Urine Negative (Negative); Cast Urine Automated 0-2 /lpf (0-2); Color Urine Yellow; Glucose Urine UA Negative (Negative); Ketones Urine Negative (Negative); Leukocyte Esterase Urine Trace (Negative); Nitrite Urine Negative (Negative); Protein Urine Negative (Negative); RBC Urine Automated 0-2 /hpf (0-2); Specific Gravity Urine 1.018 (1.000-1.030); Urobilinogen Urine Negative (Negative); WBC Urine Automated 0-5 /hpf (0-5); pH Urine 6.5 (4.5-7.5)
--- NOTE | 2024-08-25 20:21 | XRay Report ---
Exam(s): XR BILATERAL HIP + PELVIS, 1 view EXAM: XR Bilateral Hips With Pelvis When Performed, 2 or 3 Views CLINICAL HISTORY: Reason for exam: b/l hip pain. TECHNIQUE: Three or four views of the bilateral hips with pelvis when performed. COMPARISON: No relevant prior studies available. FINDINGS: Bones/joints: Subtle impacted subcapital femoral neck fractures bilaterally versus projectional artifact. Soft tissues: No radiodense foreign body. Vasculature: Dystrophic calcification and phleboliths in the pelvis. IMPRESSION: Subtle impacted subcapital femoral neck fractures bilaterally versus projectional artifact. Cross-sectional imaging is more sensitive and can further assess as clinically warranted. Electronically signed by: Gaviota Aparicio M.D. 08/25/24 20:20 PM
[2024-08-25 20:26] LABS: Adenovirus PCR Not Detected (NotDetected); Bordetella parapertussis PCR Not Detected (NotDetected); Bordetella pertussis PCR Not Detected (NotDetected); Chlamydia pneumoniae PCR Not Detected (NotDetected); Coronavirus 229E PCR Not Detected (NotDetected); Coronavirus CoV-2 (COVID19)PCR Not Detected (NotDetected); Coronavirus HKU1 PCR Not Detected (NotDetected); Coronavirus NL63 PCR Not Detected (NotDetected); Coronavirus OC43PCR Not Detected (NotDetected); Human Metapneumovirus PCR Not Detected (NotDetected); Influenza A PCR Not Detected (NotDetected); Influenza B PCR Not Detected (NotDetected); Mycoplasma pneumoniae PCR Not Detected (NotDetected); Parainfluenza Virus 1 PCR Not Detected (NotDetected); Parainfluenza Virus 2 PCR Not Detected (NotDetected); Parainfluenza Virus 3 PCR Not Detected (NotDetected); Parainfluenza Virus 4 PCR Not Detected (NotDetected); Respiratory Syncytial VirusPCR Not Detected (NotDetected); Rhinovirus/Enterovirus PCR Not Detected (NotDetected)
--- NOTE | 2024-08-25 20:27 | CT Scan Report ---
Exam(s): CT HEAD Without Contrast EXAM: CT Head Without Intravenous Contrast CLINICAL HISTORY: Reason for exam: fall, L forehead contusion. TECHNIQUE: Axial computed tomography images of the head/brain without intravenous contrast. CTDI is 35.65 mGy and DLP is 624.41 mGy-cm. Automated exposure control was utilized for the study. A dose lowering technique was utilized adhering to the principles of ALARA. COMPARISON: 04/22/24. FINDINGS: Brain: No intracranial hemorrhage. Senescent changes with small vessel disease. Ventricles: No hydrocephalus. Bones/joints: No acute fracture. Soft tissues: Soft tissue swelling in the left frontal scalp-forehead. Sinuses: No acute sinusitis. Mastoid air cells: No mastoid effusion. Orbits: Cataract surgery. IMPRESSION: No acute intracranial hemorrhage. Electronically signed by: Gaviota Aparicio M.D. 08/25/24 20:26 PM
--- NOTE | 2024-08-25 20:30 | CT Scan Report ---
Exam(s): CT C SPINE EXAM: CT Cervical Spine Without Intravenous Contrast CLINICAL HISTORY: Reason for exam: fall. TECHNIQUE: Axial computed tomography images of the cervical spine without intravenous contrast. CTDI is 25.45 mGy and DLP is 537.91 mGy-cm. Automated exposure control was utilized for the study. A dose lowering technique was utilized adhering to the principles of ALARA. COMPARISON: 04/21/24 FINDINGS: Vertebrae: No acute fracture or malalignment. Discs/spinal canal/neural foramina: No acute process. Degenerative changes as before Soft tissues: Unremarkable. IMPRESSION: No acute fracture or malalignment. Electronically signed by: Gaviota Aparicio M.D. 08/25/24 20:29 PM
--- NOTE | 2024-08-25 23:45 | CT Scan Report ---
Exam(s): CT L SPINE EXAM: CT Lumbar Spine Without Intravenous Contrast CLINICAL HISTORY: Reason for exam: pain. TECHNIQUE: Axial computed tomography images of the lumbar spine without intravenous contrast. CTDI is 27.4 mGy and DLP is 827 mGy-cm. Automated exposure control was utilized for the study. A dose lowering technique was utilized adhering to the principles of ALARA. COMPARISON: No relevant prior studies available. FINDINGS: Vertebrae: Unremarkable. No acute fracture. There is diffuse osteopenia throughout the visualized bones. Discs/spinal canal/neural foramina: No acute findings. No spinal canal stenosis. Soft tissues: Unremarkable. IMPRESSION: No evidence of acute lumbar spine pathology. Electronically signed by: Kendy William MD 08/25/24 23:44 PM
[2024-08-26] MEDS: D5W AND 1/2NSS 1,000 ML IV SCH (00:59)
--- NOTE | 2024-08-26 00:59 | CT Scan Report ---
EXAM: CT hip RT wo con CLINICAL HISTORY: PAIN AT HIPS EVAL FOR FX TECHNIQUE: Contiguous axial CT images of right hip were obtained without intravenous contrast. Coronal and sagittal reconstructions were likewise performed and indicated to increase the sensitivity for detecting clinically relevant pathology. CT scan was performed according to ALARA (as low as reasonable achievable). COMPARISON: None. FINDINGS: Linear displaced fracture is noted along the neck of right femur No dislocation. No destructive osseous lesion. The visualized muscles and tendons appear grossly unremarkable. No cortical destruction to suggest osteomyelitis. No abscess formation. No significant joint effusion. There are no soft tissue masses. Normal subcutaneous adipose space. IMPRESSION: Linear displaced fracture is noted along the neck of right femur. Electronically signed by Lucio Oneill 08-26-2024 12:59 AM
[2024-08-26] MEDS: HYDROmorphone INJ 0.5 MG/0.5 ML SYR IV PRN (01:00)
--- NOTE | 2024-08-26 01:01 | CT Scan Report ---
EXAM: CT hip LT wo con CLINICAL HISTORY: PAIN AT HIPS EVAL FOR FX TECHNIQUE: Contiguous axial CT images of left hip were obtained without intravenous contrast. Coronal and sagittal reconstructions were likewise performed and indicated to increase the sensitivity for detecting clinically relevant pathology. CT scan was performed according to ALARA (as low as reasonable achievable). COMPARISON: None. FINDINGS: Impacted fracture is noted involving neck of left femur. No dislocation. No destructive osseous lesion. The visualized muscles and tendons appear grossly unremarkable. No cortical destruction to suggest osteomyelitis. No abscess formation. No significant joint effusion. There are no soft tissue masses. Normal subcutaneous adipose space. IMPRESSION: 1. Impacted subcapital left femoral neck fracture. Electronically signed by Lucio Oneill 08-26-2024 01:01 AM
--- NOTE | 2024-08-26 02:58 | History & Physical Report ---
Date of Service August 25, 2024 Assessment & Plan (1) Fall: Plan: 68-year-old female with past medical history significant for mixed hyperlipidemia, GERD, recurrent UTI, history of calculus of kidney, urge incontinence, chronic bilateral back pain, osteoporosis, migraine, tardive dyskinesia, lumbar radiculopathy, migraine, history of memory loss, primary insomnia, history of chronic use of opioids, bipolar 1 disorder, general anxiety disorder, panic disorder, lives with her daughter was brought in because of falls. As per daughter patient walks without support at home and when she goes outside she uses walker. Lately patient seems weak as per daughter. States she fell in the kitchen yesterday. Today she slipped from the bed and got stuck within the mattress and nightstand. And she hit her head and also left shoulder and knee. Daughter says the patient's legs are giving away and falling frequently. Patient is currently alert and oriented. Has a bruise on the left side of forehead. Currently no headache as per patient. Vision is okay. No runny nose or sore throat. No fevers. Appetite is not that great as per daughter. No difficulty swallowing. Denies any chest pain or shortness of breath. No nausea. No abdominal pain. Normal bowel and bladder movements. Hemodynamics are okay. Fall Weakness Ambulatory dysfunction Right CT hip shows linear displaced fracture along the neck of right femur Left CT hip shows impacted subcapital left femoral neck fracture CT head , CT cervical spine are okay,and lumbar spine CT okay Left forearm x-ray okay Will keep her n.p.o. IV fluids gentle Pain control Chest x-ray and EKG okay and labs okay Patient should be at acceptable risk to proceed with surgery Consult orthopedics in a.m. for further recommendations GERD On omeprazole History of bipolar 1 disorder General Anxiety disorder Panic disorder On duloxetine, aripiprazole and trazodone On Klonopin as needed Migraines On Topamax History of recurrent UTI UA is okay DVT prophylaxis prophylaxis per orthopedics Disposition Medical floor Full code History of Present Illness Chief Complaint: Falls and ambulatory dysfunction Primary Care Provider: Edu Torre MD 68-year-old female with past medical history significant for mixed hyperlipidemia, GERD, recurrent UTI, history of calculus of kidney, urge incontinence, chronic bilateral back pain, osteoporosis, migraine, tardive dyskinesia, lumbar radiculopathy, migraine, history of memory loss, primary insomnia, history of chronic use of opioids, bipolar 1 disorder, general anxiety disorder, panic disorder, lives with her daughter was brought in because of falls. As per daughter patient walks without support at home and when she goes outside she uses walker. Lately patient seems weak as per daughter. States she fell in the kitchen yesterday. Today she slipped from the bed and got stuck within the mattress and nightstand. And she hit her head and also left shoulder and knee. Daughter says the patient's legs are giving away and falling frequently. Patient is currently alert and oriented. Has a bruise on the left side of forehead. Currently no headache as per patient. Vision is okay. No runny nose or sore throat. No fevers. Appetite is not that great as per daughter. No difficulty swallowing. Denies any chest pain or shortness of breath. No nausea. No abdominal pain. Normal bowel and bladder movements. Hemodynamics are okay. Past medical history. As mentioned above Past surgical history. Right knee arthroscopy. Appendectomy. Left shoulder surgery. Laparoscopic cholecystectomy. Total abdominal hysterectomy with removal of tubes. Social history. . No smoking. No alcohol currently. No drug use. Family history. Father with alcoholism. Cirrhosis. Lung cancer. Mother had depression. Diverticulitis. Status post pacemaker. Daughter had uterine cancer. Allergies Allergy/AdvReac Type Severity Reaction Status Date / Time morphine AdvReac Intermediate room Verified 04/20/24 22:14 spins,violent vomiting prochlorperazine AdvReac Intermediate GENERALIZED Verified 04/20/24 22:14 [From Compazine] WEAKNESS Home Medications Medication Instructions Recorded Confirmed Type alendronate 70 mg tablet 70 mg PO WK 08/25/24 08/25/24 History aripiprazole 15 mg tablet 15 mg PO HS 08/25/24 08/25/24 History clonazepam 0.5 mg tablet 0.5 mg PO BID PRN Anxiety 08/25/24 08/25/24 History duloxetine 30 mg capsule,delayed 30 mg PO BID 08/25/24 08/25/24 History release estradiol 0.01% (0.1 mg/gram) 1 appful vaginal 2XWK 08/25/24 08/25/24 History vaginal cream folic acid 1 mg tablet 1 mg PO DAILY 08/25/24 08/25/24 History levocetirizine 5 mg tablet 5 mg PO HS 08/25/24 08/25/24 History lubiprostone 24 mcg capsule 24 mcg PO BID 08/25/24 08/25/24 History mirabegron 50 mg tablet,extended 50 mg PO DAILY 08/25/24 08/25/24 History release 24 hr (Myrbetriq) omeprazole 40 mg capsule,delayed 40 mg PO DAILY 08/25/24 08/25/24 History release topiramate 50 mg tablet 50 mg PO DAILY 08/25/24 08/25/24 History trazodone 100 mg tablet 150 mg PO HS 08/25/24 08/25/24 History Past Med/Surg History Problem List (Updated 08/25/24 @ 23:23 by Edu Easley MD) Acute dehydration (Acute) Pain of both hip joints (Acute) Weakness (Acute) Fall (Acute) Suicide attempt by drug overdose MDD (major depressive disorder), recurrent severe, without psychosis Intentional overdose of beta-adrenergic blocking drug Right leg injury (Acute) Status post reverse total replacement of left shoulder (~11/2022) COVID-19 (Acute) Major depressive disorder, recurrent, severe without psychotic features EVANS (generalized anxiety disorder) Encounter for pre-operative examination Chronic cholecystitis with calculus Proximal humerus fracture Medical History Overdose Concussion fall down stairs 11/26/22, ct head negative Rib fractures 4-8th ribs 11/26/22, no pneumothorax per records Dementia Hyperlipidemia Stress incontinence Seizure "CAN'T REMEMBER LAST SEIZURE, BEEN A LONG TIME">DOES NOT FOLLOW WITH NEUROLOGIST Migraine Arthritis Bipolar disorder Anxiety and depression Cardiac murmur NO CARDS No murmur noted in ER on 10/20/22 or during GI office visit 10/14/22 History of COVID-19 08/25/22 per records at [facility] >symptoms resolved Depression with suicidal ideation Anxiety Surgical History Hx laparoscopic cholecystectomy Family history of reaction to anesthesia MOTHER>NAUSEA Nausea and vomiting after administration of anesthetic agent History of hysterectomy History of tonsillectomy H/O knee surgery RT Social History Smoking Status: Never smoker Second Hand Exposure: Yes; Do You Dip or Chew Tobacco: No; Hx Alcohol Use: No Hx Substance Use: No Preferred Language: Colombian Communication Ability: Effective Special Needs Bus Driver Required: No Beliefs That Will Affect Care: None Current Living Situation: Other Current Living Situation Comment: lives with daughter Feels Safe at Home: Yes Gender Identity: Female Assistive Devices: Glasses Review of Systems Review of Systems: All systems reviewed & are unremarkable except as noted in HPI & below Physical Exam Physical Exam: General- Not in distress Head- bruise seen on left forehead Eyes- PERRL. ENT- oropharynx clear Neck- supple, no JVD. Lungs- clear to auscultation no wheezing or crackles Heart- regular rate and rhythm; no murmur, no gallop. Abdomen- normal bowel sounds, soft, nontender, no distension Extremities- no pretibial edema, no erythema seen. Painful lower extremity movements Neuro- alert, oriented PERRL, no facial palsy; no dysarthria; moves extremities Results & Data Results & Data Vital Signs (Past 12 Hours) Vital Signs Temp Pulse Pulse Resp BP BP Pulse Ox 08/25/24 21:30 93 H 18 156/83 H 96 08/25/24 20:30 90 16 145/78 H 96 08/25/24 20:17 89 08/25/24 18:48 96 08/25/24 18:48 89 16 121/79 96 08/25/24 18:10 36.3 C L 102 H 17 125/67 96 O2 Del Method 08/25/24 21:30 Room Air 08/25/24 20:30 Room Air 08/25/24 20:17 08/25/24 18:48 Room Air 08/25/24 18:48 Room Air 08/25/24 18:10 Room Air Diagnostic Findings Laboratory Results WBC 7.61 K/ul (4.8-10.8) 08/25/24 18:45 RBC 4.22 M/uL (4.20-5.40) 08/25/24 18:45 Hgb 13.0 g/dl (12.0-16.0) 08/25/24 18:45 Hct 38.1 % (37.0-47.0) 08/25/24 18:45 MCV 90.3 fL (80.0-100.0) 08/25/24 18:45 MCH 30.8 pg (25.0-34.0) 08/25/24 18:45 MCHC 34.1 g/dL (32.0-36.0) 08/25/24 18:45 RDW Std Deviation 41.9 fL (36.4-46.3) 08/25/24 18:45 RDW Coeff of Z[place] 12.9 % (11.5-14.5) 08/25/24 18:45 Plt Count 189 K/uL (130-400) 08/25/24 18:45 MPV 9.3 fL (9.4-12.4) L 08/25/24 18:45 Immature Gran % (Auto) 0.3 % 08/25/24 18:45 Neut % (Auto) 77.7 % 08/25/24 18:45 Lymph % (Auto) 14.6 % 08/25/24 18:45 [place] % (Auto) 6.0 % 08/25/24 18:45 Eos % (Auto) 0.3 % 08/25/24 18:45 Baso % (Auto) 1.1 % 08/25/24 18:45 Neut # (Auto) 5.92 K/uL (1.40-6.50) 08/25/24 18:45 Lymph # (Auto) 1.11 K/uL (1.20-3.40) L 08/25/24 18:45 [place] # (Auto) 0.46 K/uL (0.11-0.59) 08/25/24 18:45 Eos # (Auto) 0.02 K/uL (0.00-0.50) 08/25/24 18:45 Baso # (Auto) 0.08 K/uL (0.00-0.20) 08/25/24 18:45 Immature Gran # (Auto) 0.02 K/uL (0.01-0.20) 08/25/24 18:45 Sodium 141 mmol/L (136-145) 08/25/24 18:45 Potassium 3.6 mmol/L (3.5-5.1) 08/25/24 18:45 Chloride 108 mmol/L (98-107) H 08/25/24 18:45 Carbon Dioxide 27 mmol/L (21-32) 08/25/24 18:45 Anion Gap 6 (3-11) 08/25/24 18:45 BUN 19 mg/dl (6-23) 08/25/24 18:45 Creatinine 0.86 mg/dl (0.6-1.2) 08/25/24 18:45 Est Cr Clr Drug Dosing Not Reportable 08/25/24 18:45 eGFR 72.63 08/25/24 18:45 BUN/Creatinine Ratio 22.1 (10-20) H 08/25/24 18:45 Glucose 125 mg/dl (70-99(Fasting)) H 08/25/24 18:45 Calcium 9.8 mg/dl (8.6-10.3) 08/25/24 18:45 Magnesium 2.0 mg/dl (1.7-2.4) 08/25/24 18:45 Total Bilirubin 0.6 mg/dl (0.2-1.0) 08/25/24 18:45 AST 14 U/L (13-39) 08/25/24 18:45 ALT 12 U/L (7-52) 08/25/24 18:45 Alkaline Phosphatase 57 U/L (34-104) 08/25/24 18:45 Total Creatine Kinase 72 U/L (26-192) 08/25/24 18:45 Total Protein 6.7 gm/dl (6.0-8.3) 08/25/24 18:45 Albumin 4.0 gm/dl (3.4-5.0) 08/25/24 18:45 Globulin 2.7 gm/dl (2.5-4.0) 08/25/24 18:45 Albumin/Globulin Ratio 1.5 (0.9-2) 08/25/24 18:45 TSH 1.477 uIu/ml (0.300-4.500) 08/25/24 18:45 Urine Color Yellow 08/25/24 19:40 Urine Appearance Clear (Clear) 08/25/24 19:40 Urine pH 6.5 (4.5-7.5) 08/25/24 19:40 Ur Specific [place] 1.018 (1.000-1.030) 08/25/24 19:40 Urine Protein Negative (Negative) 08/25/24 19:40 Urine Glucose (UA) Negative (Negative) 08/25/24 19:40 Urine Ketones Negative (Negative) 08/25/24 19:40 Urine Blood Negative (Negative) 08/25/24 19:40 Urine Nitrite Negative (Negative) 08/25/24 19:40 Urine Bilirubin Negative (Negative) 08/25/24 19:40 Urine Urobilinogen Negative (Negative) 08/25/24 19:40 Ur Leukocyte Esterase Trace (Negative) H 08/25/24 19:40 Urine WBC (Auto) 0-5 /hpf (0-5) 08/25/24 19:40 Urine RBC (Auto) 0-2 /hpf (0-2) 08/25/24 19:40 U Hyaline Cast (Auto) 0-2 /lpf (0-2) 08/25/24 19:40 U Epithel Cells (Auto) 3-5 /hpf (0-2) H 08/25/24 19:40 Urine Bacteria (Auto) None Seen (None Seen) 08/25/24 19:40 Adenovirus (PCR) Not Detected (NotDetected) 08/25/24 18:45 B. pertussis DNA (PCR) Not Detected (NotDetected) 08/25/24 18:45 B.parapertussis DNA PCR Not Detected (NotDetected) 08/25/24 18:45 C. pneumoniae DNA (PCR) Not Detected (NotDetected) 08/25/24 18:45 Coronavirus OC43 (PCR) Not Detected (NotDetected) 08/25/24 18:45 Coronavirus HKU1 (PCR) Not Detected (NotDetected) 08/25/24 18:45 Coronavirus 229E (PCR) Not Detected (NotDetected) 08/25/24 18:45 SARS-CoV-2 (PCR) Not Detected (NotDetected) 08/25/24 18:45 Coronavirus NL63 (PCR) Not Detected (NotDetected) 08/25/24 18:45 Human Metapneumovir PCR Not Detected (NotDetected) 08/25/24 18:45 Influenza Type A (PCR) Not Detected (NotDetected) 08/25/24 18:45 Influenza Type B (PCR) Not Detected (NotDetected) 08/25/24 18:45 M. pneumoniae (PCR) Not Detected (NotDetected) 08/25/24 18:45 Parainfluenza 1 (PCR) Not Detected (NotDetected) 08/25/24 18:45 Parainfluenza 2 (PCR) Not Detected (NotDetected) 08/25/24 18:45 Parainfluenza 3 (PCR) Not Detected (NotDetected) 08/25/24 18:45 Parainfluenza 4 (PCR) Not Detected (NotDetected) 08/25/24 18:45 RSV (PCR) Not Detected (NotDetected) 08/25/24 18:45 Entero/Rhino (PCR) Not Detected (NotDetected) 08/25/24 18:[address] 08/25/24 18:30 Exam(s): CT C SPINE EXAM: CT Cervical Spine Without Intravenous Contrast CLINICAL HISTORY: Reason for exam: fall. TECHNIQUE: Axial computed tomography images of the cervical spine without intravenous contrast. CTDI is 25.45 mGy and DLP is 537.91 mGy-cm. Automated exposure control was utilized for the study. A dose lowering technique was utilized adhering to the principles of ALARA. COMPARISON: 04/21/24 FINDINGS: Vertebrae: No acute fracture or malalignment. Discs/spinal canal/neural foramina: No acute process. Degenerative changes as before Soft tissues: Unremarkable. IMPRESSION: No acute fracture or malalignment. Electronically signed by: Gaviota Aparicio M.D. 08/25/24 20:29 PM Chest X-Ray 08/25/24 18:30 Exam(s): XR CXR 1 VIEW EXAM: XR Chest, 1 View CLINICAL HISTORY: Reason for exam: weakness. TECHNIQUE: Frontal view of the chest. COMPARISON: 04/20/24. FINDINGS: Lungs: Eventration in the diagram, right greater than left . No confluent consolidation or overt edema. Pleural space: No pleural effusion. No pneumothorax. Mediastinum: Unremarkable. Bones/joints: No acute fracture. Left shoulder prosthesis. Upper abdomen: Unremarkable as visualized. IMPRESSION: No acute cardiopulmonary disease. Electronically signed by: Gaviota Aparicio M.D. 08/25/24 19:20 PM Forearm X-Ray 08/25/24 18:30 Exam(s): XR LEFT FOREARM, 2 views EXAM: XR Left Forearm, 2 Views CLINICAL HISTORY: Reason for exam: L skin tear. TECHNIQUE: Frontal and lateral views of the left forearm. COMPARISON: No relevant prior studies available. FINDINGS: Bones/joints: No acute fracture. Osteopenia. Soft tissues: No radiodense foreign body. IMPRESSION: No acute fracture. Electronically signed by: Gaviota Aparicio M.D. 08/25/24 19:[address] 08/25/24 18:30 Exam(s): CT HEAD Without Contrast EXAM: CT Head Without Intravenous Contrast CLINICAL HISTORY: Reason for exam: fall, L forehead contusion. TECHNIQUE: Axial computed tomography images of the head/brain without intravenous contrast. CTDI is 35.65 mGy and DLP is 624.41 mGy-cm. Automated exposure control was utilized for the study. A dose lowering technique was utilized adhering to the principles of ALARA. COMPARISON: 04/22/24. FINDINGS: Brain: No intracranial hemorrhage. Senescent changes with small vessel disease. Ventricles: No hydrocephalus. Bones/joints: No acute fracture. Soft tissues: Soft tissue swelling in the left frontal scalp-forehead. Sinuses: No acute sinusitis. Mastoid air cells: No mastoid effusion. Orbits: Cataract surgery. IMPRESSION: No acute intracranial hemorrhage. Electronically signed by: Gaviota Aparicio M.D. 08/25/24 20:26 PM Hip/Pelvis X-Ray 08/25/24 18:30 Exam(s): XR BILATERAL HIP + PELVIS, 1 view EXAM: XR Bilateral Hips With Pelvis When Performed, 2 or 3 Views CLINICAL HISTORY: Reason for exam: b/l hip pain. TECHNIQUE: Three or four views of the bilateral hips with pelvis when performed. COMPARISON: No relevant prior studies available. FINDINGS: Bones/joints: Subtle impacted subcapital femoral neck fractures bilaterally versus projectional artifact. Soft tissues: No radiodense foreign body. Vasculature: Dystrophic calcification and phleboliths in the pelvis. IMPRESSION: Subtle impacted subcapital femoral neck fractures bilaterally versus projectional artifact. Cross-sectional imaging is more sensitive and can further assess as clinically warranted. Electronically signed by: Gaviota Aparicio M.D. 08/25/24 20:[address] 08/25/24 18:30 Exam(s): CT L SPINE EXAM: CT Lumbar Spine Without Intravenous Contrast CLINICAL HISTORY: Reason for exam: pain. TECHNIQUE: Axial computed tomography images of the lumbar spine without intravenous contrast. CTDI is 27.4 mGy and DLP is 827 mGy-cm. Automated exposure control was utilized for the study. A dose lowering technique was utilized adhering to the principles of ALARA. COMPARISON: No relevant prior studies available. FINDINGS: Vertebrae: Unremarkable. No acute fracture. There is diffuse osteopenia throughout the visualized bones. Discs/spinal canal/neural foramina: No acute findings. No spinal canal stenosis. Soft tissues: Unremarkable. IMPRESSION: No evidence of acute lumbar spine pathology. Electronically signed by: Kendy William MD 08/25/24 23:[address] 08/25/24 23:19 EXAM: CT hip LT wo con CLINICAL HISTORY: PAIN AT HIPS EVAL FOR FX TECHNIQUE: Contiguous axial CT images of left hip were obtained without intravenous contrast. Coronal and sagittal reconstructions were likewise performed and indicated to increase the sensitivity for detecting clinically relevant pathology. CT scan was performed according to ALARA (as low as reasonable achievable). COMPARISON: None. FINDINGS: Impacted fracture is noted involving neck of left femur. No dislocation. No destructive osseous lesion. The visualized muscles and tendons appear grossly unremarkable. No cortical destruction to suggest osteomyelitis. No abscess formation. No significant joint effusion. There are no soft tissue masses. Normal subcutaneous adipose space. IMPRESSION: 1. Impacted subcapital left femoral neck fracture. Electronically signed by Lucio Oneill 08-26-2024 01:01 AM ECG Additional Comments: ECG. Normal sinus rhythm rate of 87. No acute ST changes seen. Code Status & VTE Plan VTE Prophylaxis Plan VTE Prophylaxis will be ordered: Yes
[2024-08-26 06:20] LABS: Basophils # (auto) 0.09 K/uL (0.00-0.20); Basophils % (auto) 1.6 %; Eosinophils # (auto) 0.05 K/uL (0.00-0.50); Eosinophils % (auto) 0.9 %; Hematocrit (blood only) 34.5 % (37.0-47.0); Hemoglobin 11.6 g/dl (12.0-16.0); Immature Granulocytes # (auto) 0.02 K/uL (0.01-0.20); Immature Granulocytes % (auto) 0.3 %; Lymphocytes # (auto) 1.96 K/uL (1.20-3.40); Lymphocytes % (auto) 33.8 %; Mean Corpuscular Hemoglobin 31.2 pg (25.0-34.0); Mean Corpuscular Hgb Conc 33.6 g/dL (32.0-36.0); Mean Corpuscular Volume 92.7 fL (80.0-100.0); Mean Platelet Volume 9.5 fL (9.4-12.4); Monocytes # (auto) 0.34 K/uL (0.11-0.59); Monocytes % (auto) 5.9 %; Neutrophils # (auto) 3.34 K/uL (1.40-6.50); Neutrophils % (auto) 57.5 %; Platelet Count 162 K/uL (130-400); RDW Standard Deviation 44.5 fL (36.4-46.3); Red Blood Count 3.72 M/uL (4.20-5.40)
[2024-08-26 06:40] LABS: Calcium 8.8 mg/dl (8.6-10.3); Creatinine Clr Calc Pharmacy 49.7 ml/min; Potassium 3.7 mmol/L (3.5-5.1)
[2024-08-26] MEDS: INFLUENZA VACC TS2024-25(65y+)/PF (IIV3) 0.5mL Syr IM ONE (07:33)
[2024-08-26] MEDS: LUBIPROSTONE 8 MCG CAP PO SCH (07:48)
[2024-08-26] MEDS: DULoxetine HCL 30 MG CAP PO SCH (07:48)
[2024-08-26] MEDS: PANTOprazole 40 MG TAB PO SCH (07:48)
[2024-08-26] MEDS: VIBEGRON 75 MG TAB PO SCH (07:48)
[2024-08-26] MEDS: FOLIC ACID 1 MG TAB PO SCH (07:48)
[2024-08-26] MEDS: TOPIRAMATE 50 MG TAB PO SCH (07:48)
--- NOTE | 2024-08-26 08:00 | Orthopedic Consultation ---
Date of Consultation August 26, 2024 Assessment & Plan (1) Fracture of femoral neck, left: (2) Fracture of femoral neck, right: (3) Acute dehydration: (4) Weakness: (5) Fall: (6) Suicide attempt by drug overdose: (7) MDD (major depressive disorder), recurrent severe, without psychosis: (8) Intentional overdose of beta-adrenergic blocking drug: Plan this is a 68-year-old female who has extensive past psychiatric history who recently has been declining who presented to the emergency department yesterday after a fall wherein she sustained bilateral femoral neck fractures. This patient due to her psychiatric history does not sign her own consent forms, as such her daughter is her power of research attorney. I have attempted to call the patient's daughter multiple times on all numbers listed in the patient's chart, but cannot reach her. I have reviewed all the imaging available, and do believe the patient requires operative intervention for bilateral hips. on review of the patient's CT scans, the left hip certainly appears to be an incomplete, valgus impacted femoral neck fracture which would be amenable to percutaneous screw fixation. The larger discussion and consideration is for the right hip. On her x-rays, she does appear to have a valgus impacted femoral neck, however on further review of the CT scan, this does appear to be a complete fracture. That said, on the axial projections, she does still appear to have a posterior intact hinged which would signify that the main blood supply to the femoral head is not significantly compromised. I will discuss all of this with the patient's daughter, however considering the patient's limited mobility, medical comorbidities, physiologic old age, a less invasive surgery may be more appropriate for her then something more invasive such as a hemiarthroplasty. I will discuss this with the patient's daughter when I am finally able to reach her, until that time, please keep the patient n.p.o. in anticipation that the patient's daughter does finally respond to phone calls and we can take her to the operating room today. History of Present Illness Reason for Consultation: Bilateral hip fractures Requesting Physician: Dr. Silva Attending Physician: Josie Silva MD History of Present Illness 68-year-old female with past medical history significant for mixed hyperlipidemia, GERD, recurrent UTI, history of calculus of kidney, urge incontinence, chronic bilateral back pain, osteoporosis, migraine, tardive dyskinesia, lumbar radiculopathy, migraine, history of memory loss, primary insomnia, history of chronic use of opioids, bipolar 1 disorder, general anxiety disorder, panic disorder, lives with her daughter was brought in because of falls. The patient is able to participate in history gathering somewhat, but states that her daughter knows more, and that her daughter signed her consent forms. I attempted to call the daughter multiple times, however not been able to get through. The rest of the history is gathered from chart review. From the admission note: As per daughter patient walks without support at home and when she goes outside she uses walker. Lately patient seems weak as per daughter. States she fell in the kitchen yesterday. Today she slipped from the bed and got stuck within the mattress and nightstand. And she hit her head and also left shoulder and knee. Daughter says the patient's legs are giving away and falling frequently. Patient is currently alert and oriented. Has a bruise on the left side of forehead. Currently no headache as per patient. Vision is okay. No runny nose or sore throat. No fevers. Appetite is not that great as per daughter. No difficulty swallowing. Denies any chest pain or shortness of breath. No nausea. No abdominal pain. Normal bowel and bladder movements. Hemodynamics are okay. Additionally, chart review of the patient's history does note history of depression with previous suicide attempt. Allergies Allergy/AdvReac Type Severity Reaction Status Date / Time morphine AdvReac Intermediate room Verified 04/20/24 22:14 spins,violent vomiting prochlorperazine AdvReac Intermediate GENERALIZED Verified 04/20/24 22:14 [From Compazine] WEAKNESS Home Medications Medication Instructions Recorded Confirmed Type alendronate 70 mg tablet 70 mg PO WK 08/25/24 08/25/24 History aripiprazole 15 mg tablet 15 mg PO HS 08/25/24 08/25/24 History clonazepam 0.5 mg tablet 0.5 mg PO BID PRN Anxiety 08/25/24 08/25/24 History duloxetine 30 mg capsule,delayed 30 mg PO BID 08/25/24 08/25/24 History release estradiol 0.01% (0.1 mg/gram) 1 appful vaginal 2XWK 08/25/24 08/25/24 History vaginal cream folic acid 1 mg tablet 1 mg PO DAILY 08/25/24 08/25/24 History levocetirizine 5 mg tablet 5 mg PO HS 08/25/24 08/25/24 History lubiprostone 24 mcg capsule 24 mcg PO BID 08/25/24 08/25/24 History mirabegron 50 mg tablet,extended 50 mg PO DAILY 08/25/24 08/25/24 History release 24 hr (Myrbetriq) omeprazole 40 mg capsule,delayed 40 mg PO DAILY 08/25/24 08/25/24 History release topiramate 50 mg tablet 50 mg PO DAILY 08/25/24 08/25/24 History trazodone 100 mg tablet 150 mg PO HS 08/25/24 08/25/24 History Patient History Medical History Overdose Concussion fall down stairs 11/26/22, ct head negative Rib fractures 4-8th ribs 11/26/22, no pneumothorax per records Dementia Hyperlipidemia Stress incontinence Seizure "CAN'T REMEMBER LAST SEIZURE, BEEN A LONG TIME">DOES NOT FOLLOW WITH NEUROLOGIST Migraine Arthritis Bipolar disorder Anxiety and depression Cardiac murmur NO CARDS No murmur noted in ER on 10/20/22 or during GI office visit 10/14/22 History of COVID-19 08/25/22 per records at [facility] >symptoms resolved Depression with suicidal ideation Anxiety Surgical History Hx laparoscopic cholecystectomy Family history of reaction to anesthesia MOTHER>NAUSEA Nausea and vomiting after administration of anesthetic agent History of hysterectomy History of tonsillectomy H/O knee surgery RT Social History Smoking Status: Never smoker Second Hand Exposure: Yes; Do You Dip or Chew Tobacco: No; Hx Alcohol Use: No Hx Substance Use: No Preferred Language: Cypriot Communication Ability: Effective Home Housekeeper Required: No Beliefs That Will Affect Care: None Current Living Situation: Other Current Living Situation Comment: lives with daughter Feels Safe at Home: Yes Gender Identity: Female Assistive Devices: Glasses Review of Systems Review of Systems: All systems reviewed & are unremarkable except as noted in HPI & below Physical Exam Physical Exam: On physical examination, the patient has pain with logroll bilaterally to her hips. She has palpable pulses bilaterally. No open wounds appreciated. Results & Data Vital Signs (Past 12 Hours) Vital Signs Temp Pulse Pulse Resp BP Pulse Ox O2 Del Method 08/26/24 01:10 36.7 C 80 18 125/72 96 Room Air 08/25/24 23:30 Room Air 08/25/24 22:30 82 18 128/71 94 Room Air 08/25/24 21:30 93 H 18 156/83 H 96 Room Air 08/25/24 20:30 90 16 145/78 H 96 Room Air 08/25/24 20:17 89 Diagnostic Findings X-rays of bilateral hips, Bilateral femurs, pelvis and bilateral hip CTs were personally interpreted and reviewed. These demonstrate bilateral femoral neck fractures that are in valgus impacted. XRay of left shoulder personally interpreted and reviewed. this demonstrates a reverse total shoulder arthroplasty without eveidence of acute complication.
[2024-08-26] MEDS ORDERED: SUCCINYLCHOLINE CHLORIDE 20 MG/ML 10 ML VIAL IV ONE (08:16)
[2024-08-26] MEDS ORDERED: fentaNYL citrate PF 100 MCG/2 ML VIAL ONE ×2 (08:16→16:13)
[2024-08-26] MEDS ORDERED: PHENYLEPHRINE HCL 10 MG/ML VIAL ONE (08:16)
[2024-08-26] MEDS ORDERED: ROCURONIUM BROMIDE 10 MG/ML 5 ML VIAL IV ONE ×2 (08:16→16:09)
[2024-08-26] MEDS ORDERED: LIDOCAINE 2% 2 ML VIAL/AMP(20MG/ML) INFIL ONE ×2 (08:16→16:09)
[2024-08-26] MEDS ORDERED: PROPOFOL IV EMULSION 10 MG/ML 20 ML VIAL IV ONE ×2 (08:16→16:09)
[2024-08-26] MEDS ORDERED: SODIUM CHLORIDE 0.9% 100 ML IV PRN (08:31)
[2024-08-26] MEDS ORDERED: SODIUM CHLORIDE 0.9% 50 ML IV PRN (08:31)
--- NOTE | 2024-08-26 08:31 | Anesthesiology Consultation ---
Date of Service August 26, 2024 Assessment & Plan Chart Review Chart Review: Acceptable Risk for Surgery and Patient NOT seen in Pre Admission Testing Consults Requested none ASA ASA4 Proposed Anesthesia Anesthesia Type: General Anesthesia Line Insertion: Arterial line History Surgery Operation Date: 08/26/24 12:30 Proposed Procedures p Bilateral Percutaneous Pinning of Hips - Yohan Martinez DO Height/Weight Height: 5 ft 4 in Weight: 55.9 kg Allergies Allergy/AdvReac Type Severity Reaction Status Date / Time morphine AdvReac Intermediate room Verified 04/20/24 22:14 spins,violent vomiting prochlorperazine AdvReac Intermediate GENERALIZED Verified 04/20/24 22:14 [From Compazine] WEAKNESS Medications Home Medications Medication Instructions Recorded Confirmed Last Taken alendronate 70 mg tablet 70 mg PO WK 08/25/24 08/25/24 Unknown aripiprazole 15 mg tablet 15 mg PO HS 08/25/24 08/25/24 Unknown clonazepam 0.5 mg tablet 0.5 mg PO BID PRN Anxiety 08/25/24 08/25/24 Unknown duloxetine 30 mg capsule,delayed 30 mg PO BID 08/25/24 08/25/24 Unknown release estradiol 0.01% (0.1 mg/gram) 1 appful vaginal 2XWK 08/25/24 08/25/24 Unknown vaginal cream folic acid 1 mg tablet 1 mg PO DAILY 08/25/24 08/25/24 Unknown levocetirizine 5 mg tablet 5 mg PO HS 08/25/24 08/25/24 Unknown lubiprostone 24 mcg capsule 24 mcg PO BID 08/25/24 08/25/24 Unknown mirabegron 50 mg tablet,extended 50 mg PO DAILY 08/25/24 08/25/24 Unknown release 24 hr (Myrbetriq) omeprazole 40 mg capsule,delayed 40 mg PO DAILY 08/25/24 08/25/24 Unknown release topiramate 50 mg tablet 50 mg PO DAILY 08/25/24 08/25/24 Unknown trazodone 100 mg tablet 150 mg PO HS 08/25/24 08/25/24 Unknown Active Medications Generic Name Dose Route Start Last Admin Trade Name Freq PRN Reason Stop Dose Admin Duloxetine HCl 30 mg 08/26/24 09:00 08/26/24 07:48 Duloxetine Hcl 30 Mg Cap PO 09/25/24 08:59 Not Given BID DANYELLE Folic Acid 1 mg 08/26/24 09:00 08/26/24 07:48 Folic Acid 1 Mg Tab PO 09/25/24 08:59 Not Given DAILY DANYELLE Hydromorphone HCl 0.5 mg 08/26/24 00:40 08/26/24 07:45 Hydromorphone Inj 0.5 Mg/0.5 Ml Syr IV 09/09/24 00:39 0.5 mg Q6H PRN Administration Severe Pain (Scale 7, 8, 9,10) Dextrose/Sodium Chloride 1,000 mls @ 80 mls/hr 08/26/24 00:40 08/26/24 00:59 D5w And 1/2nss IV 08/27/24 00:39 80 mls/hr .[id number] DANYELLE Administration Lubiprostone 24 mcg 08/26/24 09:00 08/26/24 07:48 Lubiprostone 8 Mcg Cap PO 09/25/24 08:59 Not Given BID DANYELLE Pantoprazole Sodium 40 mg 08/26/24 09:00 08/26/24 07:48 Pantoprazole 40 Mg Tab PO 09/25/24 08:59 Not Given DAILY DANYELLE Topiramate 50 mg 08/26/24 09:00 08/26/24 07:48 Topiramate 50 Mg Tab PO 09/25/24 08:59 Not Given DAILY DANYELLE Vibegron 75 mg 08/26/24 09:00 08/26/24 07:48 Vibegron 75 Mg Tab PO 09/25/24 08:59 Not Given DAILY DANYELLE Past Medical History Medical History Overdose Concussion fall down stairs 11/26/22, ct head negative Rib fractures 4-8th ribs 11/26/22, no pneumothorax per records Dementia Hyperlipidemia Stress incontinence Seizure "CAN'T REMEMBER LAST SEIZURE, BEEN A LONG TIME">DOES NOT FOLLOW WITH NEUROLOGIST Migraine Arthritis Bipolar disorder Anxiety and depression Cardiac murmur NO CARDS No murmur noted in ER on 10/20/22 or during GI office visit 10/14/22 History of COVID-19 08/25/22 per records at [facility] >symptoms resolved Depression with suicidal ideation Anxiety Exercise / Class Metabolic Activity IV < 2 Limit ADL/Bedbound Past Surgical History Surgical History Hx laparoscopic cholecystectomy Family history of reaction to anesthesia MOTHER>NAUSEA Nausea and vomiting after administration of anesthetic agent History of hysterectomy History of tonsillectomy H/O knee surgery RT Past Anesthesia History No Hx of Anesthesia Complications and No Family Hx of Anesthesia Complications History of PONV No Hx of PONV and No Hx of Motion Sickness Social History Smoking Status: Never smoker Do You Dip or Chew Tobacco: No Hx Alcohol Use: No Hx Substance Use: No substance use type: does not use Physical Exam Vital Signs Last Vital Signs Temp 36.3 C L 08/26/24 08:18 Pulse 94 H 08/26/24 08:18 Resp 15 08/26/24 08:18 BP 126/74 08/26/24 08:18 Pulse Ox 94 08/26/24 08:18 O2 Del Method Room Air 08/26/24 08:18 Testing Laboratory Results 08/26/24 05:59 08/26/24 05:59 Urine Color Yellow 08/25/24 19:40 Urine Appearance Clear (Clear) 08/25/24 19:40 Urine pH 6.5 (4.5-7.5) 08/25/24 19:40 Ur Specific [place] 1.018 (1.000-1.030) 08/25/24 19:40 Urine Protein Negative (Negative) 08/25/24 19:40 Urine Glucose (UA) Negative (Negative) 08/25/24 19:40 Urine Ketones Negative (Negative) 08/25/24 19:40 Urine Nitrite Negative (Negative) 08/25/24 19:40 Ur Leukocyte Esterase Trace (Negative) H 08/25/24 19:40 Urine WBC (Auto) 0-5 /hpf (0-5) 08/25/24 19:40 Urine RBC (Auto) 0-2 /hpf (0-2) 08/25/24 19:40 U Hyaline Cast (Auto) 0-2 /lpf (0-2) 08/25/24 19:40 U Epithel Cells (Auto) 3-5 /hpf (0-2) H 08/25/24 19:40 Urine Bacteria (Auto) None Seen (None Seen) 08/25/24 19:40 Electrocardiogram Date: 08/25/24 Findings: + NSR @ (@ 87) Chest X-Ray Date: 08/25/24 Findings: + NAD
--- NOTE | 2024-08-26 09:10 | XRay Report ---
XR femur RT 2V routine CLINICAL HISTORY: Hip fracture. COMPARISON: Right hip radiographs August 25, [address] of the right hip August 26, 2024. FINDINGS: Alignment of an acute impacted right femoral neck fracture is similar to prior radiographs and CT. The fracture is not significantly displaced. No additional fractures are present. Lateral pl ate and screw fixation within the proximal right tibia is partially imaged. IMPRESSION: Acute impacted right femoral neck fracture. Fracture not significantly displaced. ACT 112: Negative or not required by law. Electronically signed by: Darin Calhoun M.D. 08/26/2024 9:09 AM
--- NOTE | 2024-08-26 09:19 | XRay Report ---
XR shoulder LT min 2V routine HISTORY: 68 years-old Female pain acute left shoulder pain COMPARISON: Chest radiograph 08/25/2024 TECHNIQUE: 2 views of the left shoulder FINDINGS: Reverse left shoulder arthroplasty demonstrates satisfactory alignment. No acute fracture, dislocatio n or evidence of hardware loosening. Mild to moderate AC joint osteoarthritis. Chronic appearing late ral left rib fractures. IMPRESSION: 1. No acute fracture or dislocation. 2. Unremarkable appearance of the reverse shoulder arthroplasty. ACT 112: Negative or not required by law. The above report was generated using voice recognition software. It may contain grammatical, syntax o r spelling errors. Electronically signed by: Jordin Cruz M.D. 08/26/2024 9:18 AM
--- NOTE | 2024-08-26 09:23 | XRay Report ---
XR femur LT 2V routine HISTORY: 68 years-old Female hip fracture COMPARISON: CT 08/26/2024 TECHNIQUE: 2 views of the left femur FINDINGS: There is an acute comminuted and impacted subcapital/transcervical left femoral fracture. No dislocat ion. Mild to moderate osteoarthritis of the hip. IMPRESSION: Acute, comminuted and impacted transcervical/subcapital femoral neck fracture. ACT 112: Negative or not required by law. The above report was generated using voice recognition software. It may contain grammatical, syntax o r spelling errors. Electronically signed by: Jordin Cruz M.D. 08/26/2024 9:21 AM
--- NOTE | 2024-08-26 11:23 | Hospitalist Progress Note ---
Date of Service August 26, 2024 Assessment & Plan (1) Fall: (2) Bilateral hip fractures: (3) Ambulatory dysfunction: Plan Lulu Zhong is a 68y/o F with PMHx significant for mixed hyperlipidemia, GERD, history of recurrent UTI, urge incontinence, history of calculus of kidney, chronic bilateral low back pain with left-sided sciatica, age-related osteoporosis, migraines, tardive dyskinesia, lumbar radiculopathy, history of memory loss, primary insomnia, history of chronic opioid use, bipolar I disorder, EVANS and panic disorder who presented to the ED on 07/26/2024 via EMS with complaints of generalized pain after falling out of bed. Patient lives with her daughter, Danni, and her grandson. She was unfortunately found to have fractured both hips on admitting imaging. Spoke with the patient's daughter, Danni, over the phone this morning. Per Danni, patient has had 3 recent falls since . Reports she has previously fallen on both of her hips. She was found in her room at home stuck between her mattress and nightstand as she had fallen out of bed - Danni had called EMS. Patient had also hit her head and also her left shoulder plus knee during this fall. Danni reports that the patient has been extremely off balance lately and that her legs are "giving way." Patient has also reportedly been "not acting like herself." There is concern that the patient may have taken some of Danni's methocarbamol at home, which was left of Danni's nightstand - however this was not directly visualized by Danni. She assumed this could be possibly be what attributed to her balance issues. Ambulatory Dysfunction & Generalized Weakness Likely Age-Related Osteoporotic Bilateral Hip Fractures S/P Recent Falls: Head CT, cervical/lumbar spine CT, L forearm XR & CXR were all unremarkable on admission. B/L hip & pelvis XR --> Subtle impacted subcapital femoral neck fractures bilaterally vs projectional artifact. L hip CT --> Impacted subcapital L femoral neck fracture. L femur XR --> Acute, comminuted and impacted transcervical/subcapital femoral neck fracture. R hip CT --> Linear displaced fracture noted along the neck of the R femur. R femur XR --> Acute impacted R femoral neck fracture - not significantly displaced. Made NPO on admission, bedrest; also started on gentle IVF/PRN pain control. Orthopedic surgery consulted. Patient to OR today w/ Dr. Martinez to undergo b/l percutaneous pinning of both hips. Daughter, Danni, on board with the plan. Other Chronic Medical Conditions: * GERD - Continue home omeprazole. * History of migraines - Continue home Topamax. * History of recurrent UTIs - UA unremarkable on admission. * Bipolar I disorder/EVANS/panic disorder - Mental status stable. Continue home psych meds, on Klonopin PRN. DVT Prophylaxis: SCDs/TEDs for now in preparation for surgery. Code Status: FULL CODE PCP: Edu Torre MD Disposition: Admitted in Med/Surg - Ultimately anticipate patient to require SNF placement at time of discharge. PT/OT evals postoperatively as per orthopedic surgery. * Patient's daughter, Danni (also POA), would like routine updates. She can be reached at the following phone #: [phone]. Patient seen in collaboration with Dr. Silva. Please see addendum. I spent a total of 45 minutes coordinating, documenting, and providing care for this patient excluding time spent in the performance of separately billed services. This included personally reviewing all current laboratories and imaging studies, medical reconciliation, outpatient chart review and discussion with specialists. This chart was completed in part utilizing Speech Voice Recognition Software. Grammatical errors, random word insertions, pronoun errors, and incomplete sentences are an occasional consequence of this system due to software limitations, ambient noise, and hardware issues. Any formal questions or concerns about the content, text, or information contained within the body of this dictation should be directly addressed to the provider for clarification. Admission and Anticipated Discharge Date Admission Date: August 25, 2024 Supervising Physician Co-Signing Physician Notes I have seen and discussed the case with the collaborating advanced practitioner. I agree with the above PN. I have reviewed and confirmed the patients medical history, the findings on physical examination, and the patients diagnosis and treatment plan with Emily HAWKINS and agree with the information documented. In short, Ms. Zhong is a 68 year old woman with multiple falls complicated by bilateral hip fracture who is now POD 0 bilateral pinning. Ortho following Will follow post op labs PT/OT when able I spent a total of 20 minutes coordinating, documenting, and providing care for this patient excluding time spent in the performance of separately billed services. All of the aforementioned completed outside of collaborating with the assigned advanced practitioner for a full treatment plan. I have reviewed the advanced practitioner's documentation, and I agree with, and take responsibility for the plan of care Subjective Patient seen and examined this morning. She was lying down in bed - very sleepy but was conversing appropriately with direct conversation. Reports she fell off of her bed prior to arrival to the ED and had gotten stuck between the mattress and the nightstand. Reports that she lives with her daughter whom brought her in. I was able to speak with her daughter, Danni, over the phone this morning. She reports that the patient has had approximately 3 falls since - has fallen on both hips. Prior to arrival, the patient was found stuck between her mattress and the nightstand as she had fallen off the bed - Danni had called EMS when she found her. Danni reports that her balance has been "very off" over the last couple of weeks. She also mentions that the patient has been "acting weird" lately. She suspects that the patient may have been taking some of her (Danni's) methocarbamol that she had on her nightstand; however she did not actually directly see her do this. Patient does have a history of suicidal attempts in which she has tried overdosing on propranolol - most recently this past April. Danni therefore has been locking her medications away and managing them for her. Danni was unaware of her mother's bilateral hip fractures therefore I informed her of these findings and the plan for surgery to repair these fractures --> Dr. Martinez will be calling her for surgical consent as the patient cannot sign her own consent forms secondary to her past psychiatric history - Danni is the POA for her mother. Review of Systems Review of Systems: At least ten systems reviewed and negative, except as noted in the subjective section. Physical Exam Physical Exam: General: Very thin, NAD, laying down in bed, conversing appropriately with direct conversation/questioning, A&O x 2. HEENT: Normocephalic, atraumatic. Conjunctivae normal, anicteric sclerae. External ear and nose normal, oropharynx normal. Respiratory: Normal respiratory effort, lungs clear to auscultation, no wheeze/rales/rhonchi. No accessory muscle use. Cardiovascular: Regular rate, rhythm, normal peripheral pulses, no BLE edema. Vessels: No JVD. Abdomen/GI/: Normal bowel sounds, soft, nondistended, nontender to palpation in all quadrants. PureWick in place. Extremities/Musculoskeletal: Painful BLE passive movements on exam, patient is on strict bedrest for now. Neurologic: No overt focal deficits, CN's II-XI not formally tested but appear grossly intact bilaterally. Skin: No rashes, normal color, warm/dry. Bruise noted on L forehead region. Results & Data Results & Data Vital Signs (Past 12 Hours) Vital Signs Temp Pulse Resp BP BP Pulse Ox O2 Del Method 08/26/24 08:18 36.3 C L 94 H 15 126/74 94 Room Air 08/26/24 01:10 36.7 C 80 18 125/72 96 Room Air 08/25/24 23:30 Room Air Laboratory Results Short CBC 08/25/24 08/26/24 Range/Units 18:45 05:59 WBC 7.61 5.80 (4.8-10.8) K/ul Hgb 13.0 11.6 L (12.0-16.0) g/dl Hct 38.1 34.5 L (37.0-47.0) % Plt Count 189 162 (130-400) K/uL BMP 08/25/24 08/26/24 18:45 05:59 Sodium 141 142 Potassium 3.6 3.7 Chloride 108 H 109 H Carbon Dioxide 27 29 BUN 19 20 Creatinine 0.86 0.91 Glucose 125 H 123 H Calcium 9.8 8.8 Cardiac Enzymes 08/25/24 Range/Units 18:45 Total Creatine Kinase 72 (26-192) U/L Liver Function 08/25/24 Range/Units 18:45 Total Bilirubin 0.6 (0.2-1.0) mg/dl AST 14 (13-39) U/L ALT 12 (7-52) U/L Alkaline Phosphatase 57 (34-104) U/L Albumin 4.0 (3.4-5.0) gm/dl Urine 08/25/24 Range/Units 19:40 Urine Color Yellow Urine Appearance Clear (Clear) Urine pH 6.5 (4.5-7.5) Ur Specific [place] 1.018 (1.000-1.030) Urine Protein Negative (Negative) Urine Glucose (UA) Negative (Negative) Diagnostic Findings Cervical Spine CT 08/25/24 18:30 Exam(s): CT C SPINE EXAM: CT Cervical Spine Without Intravenous Contrast CLINICAL HISTORY: Reason for exam: fall. TECHNIQUE: Axial computed tomography images of the cervical spine without intravenous contrast. CTDI is 25.45 mGy and DLP is 537.91 mGy-cm. Automated exposure control was utilized for the study. A dose lowering technique was utilized adhering to the principles of ALARA. COMPARISON: 04/21/24 FINDINGS: Vertebrae: No acute fracture or malalignment. Discs/spinal canal/neural foramina: No acute process. Degenerative changes as before Soft tissues: Unremarkable. IMPRESSION: No acute fracture or malalignment. Electronically signed by: Gaviota Aparicio M.D. 08/25/24 20:29 PM Chest X-Ray 08/25/24 18:30 Exam(s): XR CXR 1 VIEW EXAM: XR Chest, 1 View CLINICAL HISTORY: Reason for exam: weakness. TECHNIQUE: Frontal view of the chest. COMPARISON: 04/20/24. FINDINGS: Lungs: Eventration in the diagram, right greater than left . No confluent consolidation or overt edema. Pleural space: No pleural effusion. No pneumothorax. Mediastinum: Unremarkable. Bones/joints: No acute fracture. Left shoulder prosthesis. Upper abdomen: Unremarkable as visualized. IMPRESSION: No acute cardiopulmonary disease. Electronically signed by: Gaviota Aparicio M.D. 08/25/24 19:20 PM Forearm X-Ray 08/25/24 18:30 Exam(s): XR LEFT FOREARM, 2 views EXAM: XR Left Forearm, 2 Views CLINICAL HISTORY: Reason for exam: L skin tear. TECHNIQUE: Frontal and lateral views of the left forearm. COMPARISON: No relevant prior studies available. FINDINGS: Bones/joints: No acute fracture. Osteopenia. Soft tissues: No radiodense foreign body. IMPRESSION: No acute fracture. Electronically signed by: Gaviota Aparicio M.D. 08/25/24 19:[address] 08/25/24 18:30 Exam(s): CT HEAD Without Contrast EXAM: CT Head Without Intravenous Contrast CLINICAL HISTORY: Reason for exam: fall, L forehead contusion. TECHNIQUE: Axial computed tomography images of the head/brain without intravenous contrast. CTDI is 35.65 mGy and DLP is 624.41 mGy-cm. Automated exposure control was utilized for the study. A dose lowering technique was utilized adhering to the principles of ALARA. COMPARISON: 04/22/24. FINDINGS: Brain: No intracranial hemorrhage. Senescent changes with small vessel disease. Ventricles: No hydrocephalus. Bones/joints: No acute fracture. Soft tissues: Soft tissue swelling in the left frontal scalp-forehead. Sinuses: No acute sinusitis. Mastoid air cells: No mastoid effusion. Orbits: Cataract surgery. IMPRESSION: No acute intracranial hemorrhage. Electronically signed by: Gaviota Aparicio M.D. 08/25/24 20:26 PM Hip/Pelvis X-Ray 08/25/24 18:30 Exam(s): XR BILATERAL HIP + PELVIS, 1 view EXAM: XR Bilateral Hips With Pelvis When Performed, 2 or 3 Views CLINICAL HISTORY: Reason for exam: b/l hip pain. TECHNIQUE: Three or four views of the bilateral hips with pelvis when performed. COMPARISON: No relevant prior studies available. FINDINGS: Bones/joints: Subtle impacted subcapital femoral neck fractures bilaterally versus projectional artifact. Soft tissues: No radiodense foreign body. Vasculature: Dystrophic calcification and phleboliths in the pelvis. IMPRESSION: Subtle impacted subcapital femoral neck fractures bilaterally versus projectional artifact. Cross-sectional imaging is more sensitive and can further assess as clinically warranted. Electronically signed by: Gaviota Aparicio M.D. 08/25/24 20:[address] 08/25/24 18:30 Exam(s): CT L SPINE EXAM: CT Lumbar Spine Without Intravenous Contrast CLINICAL HISTORY: Reason for exam: pain. TECHNIQUE: Axial computed tomography images of the lumbar spine without intravenous contrast. CTDI is 27.4 mGy and DLP is 827 mGy-cm. Automated exposure control was utilized for the study. A dose lowering technique was utilized adhering to the principles of ALARA. COMPARISON: No relevant prior studies available. FINDINGS: Vertebrae: Unremarkable. No acute fracture. There is diffuse osteopenia throughout the visualized bones. Discs/spinal canal/neural foramina: No acute findings. No spinal canal stenosis. Soft tissues: Unremarkable. IMPRESSION: No evidence of acute lumbar spine pathology. Electronically signed by: Kendy William MD 08/25/24 23:[address] 08/25/24 23:19 EXAM: CT hip LT wo con CLINICAL HISTORY: PAIN AT HIPS EVAL FOR FX TECHNIQUE: Contiguous axial CT images of left hip were obtained without intravenous contrast. Coronal and sagittal reconstructions were likewise performed and indicated to increase the sensitivity for detecting clinically relevant pathology. CT scan was performed according to ALARA (as low as reasonable achievable). COMPARISON: None. FINDINGS: Impacted fracture is noted involving neck of left femur. No dislocation. No destructive osseous lesion. The visualized muscles and tendons appear grossly unremarkable. No cortical destruction to suggest osteomyelitis. No abscess formation. No significant joint effusion. There are no soft tissue masses. Normal subcutaneous adipose space. IMPRESSION: 1. Impacted subcapital left femoral neck fracture. Electronically signed by Lucio Oneill 08-26-2024 01:[address] 08/25/24 23:19 EXAM: CT hip RT wo con CLINICAL HISTORY: PAIN AT HIPS EVAL FOR FX TECHNIQUE: Contiguous axial CT images of right hip were obtained without intravenous contrast. Coronal and sagittal reconstructions were likewise performed and indicated to increase the sensitivity for detecting clinically relevant pathology. CT scan was performed according to ALARA (as low as reasonable achievable). COMPARISON: None. FINDINGS: Linear displaced fracture is noted along the neck of right femur No dislocation. No destructive osseous lesion. The visualized muscles and tendons appear grossly unremarkable. No cortical destruction to suggest osteomyelitis. No abscess formation. No significant joint effusion. There are no soft tissue masses. Normal subcutaneous adipose space. IMPRESSION: Linear displaced fracture is noted along the neck of right femur. Electronically signed by Lucio Oneill 08-26-2024 12:59 AM Femur X-Ray 08/26/24 08:06 XR femur LT 2V routine HISTORY: 68 years-old Female hip fracture COMPARISON: CT 08/26/2024 TECHNIQUE: 2 views of the left femur FINDINGS: There is an acute comminuted and impacted subcapital/transcervical left femoral fracture. No dislocation. Mild to moderate osteoarthritis of the hip. IMPRESSION: Acute, comminuted and impacted transcervical/subcapital femoral neck fracture. ACT 112: Negative or not required by law. The above report was generated using voice recognition software. It may contain grammatical, syntax or spelling errors. Electronically signed by: Jordin Cruz M.D. 08/26/2024 9:21 AM Femur X-Ray 08/26/24 08:06 XR femur RT 2V routine CLINICAL HISTORY: Hip fracture. COMPARISON: Right hip radiographs August 25, [address] of the right hip August 26, 2024. FINDINGS: Alignment of an acute impacted right femoral neck fracture is similar to prior radiographs and CT. The fracture is not significantly displaced. No additional fractures are present. Lateral plate and screw fixation within the proximal right tibia is partially imaged. IMPRESSION: Acute impacted right femoral neck fracture. Fracture not significantly displaced. ACT 112: Negative or not required by law. Electronically signed by: Darin Calhoun M.D. 08/26/2024 9:09 AM Shoulder X-Ray 08/26/24 08:10 XR shoulder LT min 2V routine HISTORY: 68 years-old Female pain acute left shoulder pain COMPARISON: Chest radiograph 08/25/2024 TECHNIQUE: 2 views of the left shoulder FINDINGS: Reverse left shoulder arthroplasty demonstrates satisfactory alignment. No acute fracture, dislocation or evidence of hardware loosening. Mild to moderate AC joint osteoarthritis. Chronic appearing lateral left rib fractures. IMPRESSION: 1. No acute fracture or dislocation. 2. Unremarkable appearance of the reverse shoulder arthroplasty. ACT 112: Negative or not required by law. The above report was generated using voice recognition software. It may contain grammatical, syntax or spelling errors. Electronically signed by: Jordin Cruz M.D. 08/26/2024 9:18 AM (1) Fall Encounter type: sequela Qualified Code(s): W19.XXXS - Unspecified fall, sequela (2) Bilateral hip fractures Encounter type: initial encounter Fracture type: closed Qualified Code(s): S72.001A - Fracture of unspecified part of neck of right femur, initial encounter for closed fracture; S72.002A - Fracture of unspecified part of neck of left femur, initial encounter for closed fracture
[2024-08-26] MEDS: ACETAMINOPHEN 325 MG TAB PO PRN (13:42)
[2024-08-26] MEDS: ONDANSETRON INJ 2 MG/ML 2 ML VIAL IV PRN (14:38)
--- NOTE | 2024-08-26 15:09 | Electrocardiogram Report ---
Test Reason : Blood Pressure : */* mmHG Vent. Rate : 87 BPM Atrial Rate : 87 BPM P-R Int : 138 ms QRS Dur : 84 ms QT Int : 360 ms P-R-T Axes : 64 -15 65 degrees QTcB Int : 433 ms Normal sinus rhythm Normal ECG When compared with ECG of 21-Apr-2024 04:08, Vent. rate has increased by 30 bpm Questionable change in QRS axis T wave inversion no longer evident in Inferior leads Confirmed by Jagdish Martinez ([id number]) on 08/26/2024 3:08:56 PM Referred By: REFERRED SELF Confirmed By: Jagdish Martinez
[2024-08-26] MEDS ORDERED: ONDANSETRON INJ 2 MG/ML 2 ML VIAL ONE (16:09)
[2024-08-26] MEDS ORDERED: GLYCOPYRROLATE 0.2 MG/ML VIAL ONE (16:09)
[2024-08-26] MEDS ORDERED: DEXAMETHASONE SOD INJ 4 MG/ML VIAL ONE (16:09)
[2024-08-26] MEDS ORDERED: MIDAZOLAM HCL 1 MG/ML 2ML VIAL ONE (16:14)
[2024-08-26] MEDS ORDERED: SUGAMMADEX SODIUM 200 MG/2 ML VIAL IV ONE (16:16)
[2024-08-26] MEDS ORDERED: ONDANSETRON INJ 2 MG/ML 2 ML VIAL IV PRN (16:26)
[2024-08-26] MEDS ORDERED: ATROPINE SULFATE 0.1 MG/ML 10ML SYR IV PRN (16:26)
[2024-08-26] MEDS ORDERED: ePHEDrine sulfate 50 MG/ML AMP IV PRN (16:26)
[2024-08-26] MEDS: SODIUM CHLORIDE 0.9% 1,000 ML IV SCH (16:33)
--- NOTE | 2024-08-26 16:36 | History & Physical Bridge Note ---
Date of Service August 26, 2024 History & Physical Bridge Note I have examined the patient, reviewed the History & Physical and in the interval since the performance of the History & Physical I have noted the following changes of clinical significance: We were able to finally call the patient's daughter and discuss the patient's care in great detail. I had a long discussion with her regarding these fractures. I explained to her that in general, femoral neck fractures can be managed 1 of 2 ways operatively either with closed reduction and internal fixation using 3 screws or with hemiarthroplasty. I explained to the patient's daughter that the patient's fractures are "on the fence" between which management strategy is most appropriate. I did explain to the patient's daughter that with close reduction internal fixation using 3 screws, the patient is at risk of femoral head collapse, avascular necrosis, and continued pain requiring revision to a arthroplasty type surgery in the future, nonunion, malunion. I explained that with hemiarthroplasty, there are significant risks, as well including serious infection requiring revision surgery, dislocation, iatrogenic fracture, iatrogenic injury to nerve/tendon/vessel. I discussed the rehabilitation of both surgeries with the patient's daughter as well. Following either surgery, she will likely be allowed to bear weight on her bilateral lower extremities following either surgery, and I explained that she probably would walk sooner following hemiarthroplasty. Both surgical pathways carry with them inherent risks including but not limited to: Loss of life/limb, anesthesia complications, DVT, infection, need for additional surgery, incomplete relief of pain, need for revision surgery, hardware complication, hardware failure. The patient's daughter understands these risks as well. Through a shared decision making model, and based upon the thorough discussion of risks and benefits, the patient notes that she believes her mother is quite ill, and is concerned about her ability to handle having bilateral hip hemiarthroplasties. Considering the patient's fractures appear most like a valgus impacted variant, I do think this is reasonable to pursue close reduction internal fixation as it is a surgery that may have less stress on the patient physiologically than bilateral hemiarthroplasties. Additionally, I did discuss this case with my trauma surgery mentor who agreed that closed reduction and internal fixation is the appropriate way to manage these fractures. No promises or guarantees were stated or implied to the patient or her daughter. The patient's daughter signed a phone consent for surgery in the presence of the patient's nurse. We will proceed to the operating room pending OR availability.
[2024-08-26] MEDS: ceFAZolin 2000MG 2,000 MG/15 ML SYR IV ONE ×2 (17:38→20:22)
[2024-08-26] MEDS: ceFAZolin 2,000 MG/15 ML IV PUSH IV ONE (17:38)
[2024-08-26] MEDS ORDERED: PHENYLEPHRINE 100MCG/ML 5ML SYR ONE (19:01)
[2024-08-26] MEDS ORDERED: ePHEDrine sulfate 50 MG/ML AMP ONE (19:01)
[2024-08-26] MEDS ORDERED: ceFAZolin 330 MG/ML 1 GM VIAL ONE (19:35)
--- NOTE | 2024-08-26 20:34 | Post Operative Brief Note ---
Immediate Post Op Note Date of Surgery August 26, 2024 Pre & Post Diagnosis Operation Date: 08/26/24 11:10 Preop diagnosis 1. Valgus impacted left femoral neck fracture 2. Valgus impacted right femoral neck fracture 3. OsteoporosisWith fragility fracture Postop diagnosis 1. Valgus impacted left femoral neck fracture 2. Valgus impacted right femoral neck fracture 3. OsteoporosisWith fragility fracture I identified the patient and participated in the time-out.: Yes Procedure Operation Date: 08/26/24 11:10 1. closed reduction and internal fixation left hip 2. closed reduction and internal fixation right hip 3. physician directed fluoroscopy greater than 1 hour Surgeon Yohan Martinez DO [employer] none Estimated Blood Loss 100 Findings Consistent with Post-Op Diagnosis Fluids see anesthesia record Complications none immediately apparent Disposition Disposition: Recovery Room Overlapping Procedure I was present for: the critical portions of procedure. (the entire case)
--- NOTE | 2024-08-26 20:36 | Operative Report ---
Post Operative Report Pre & Post Diagnosis Operation Date: 08/26/24 11:10 <No data on this case meets the specified criteria> Preop diagnosis 1. Valgus impacted left femoral neck fracture 2. Valgus impacted right femoral neck fracture 3. Osteoporosis with fragility fracture Postop diagnosis 1. Valgus impacted left femoral neck fracture 2. Valgus impacted right femoral neck fracture 3. Osteoporosis with fragility fracture I identified the patient and participated in the time-out.: Yes Procedure Operation Date: 08/26/24 11:10 1. Closed reduction internal fixation left hip 2. Closed reduction internal fixation right hip 3. Physician directed fluoroscopy greater than 1 hour Surgeon Yohan Martinez DO [employer] Admissions Counselor none Estimated Blood Loss 100 Findings Consistent with Post-Op Diagnosis bilateral subcapital valgus impacted femoral neck fractures were stable with stress intraoperatively Fluids see anesthesia record Specimens no specimens Drains no drains Anesthesia Type General Complications none immediately apparent Disposition Disposition: Recovery Room Indications This is a 68-year-old female who was admitted after multiple recent falls over the past few days complaining of bilateral hip pain. X-rays demonstrated bilateral subcapital femoral neck fractures that were valgus impacted. Initially, we had difficulty reaching the patient's daughter to obtain consent as she is the power of criminal attorney and the patient does not sign her own consent forms. Eventually, we were able to reach her and have a discussion. I had a long discussion with her regarding these fractures. I explained to her that in general, femoral neck fractures can be managed 1 of 2 ways operatively either with closed reduction and internal fixation using 3 screws or with hemiarthroplasty. I explained to the patient's daughter that the patient's fractures are "on the fence" between which management strategy is most appropriate. I did explain to the patient's daughter that with close reduction internal fixation using 3 screws, the patient is at risk of femoral head collapse, avascular necrosis, and continued pain requiring revision to a arthroplasty type surgery in the future, nonunion, malunion. I explained that with hemiarthroplasty, there are significant risks, as well including serious infection requiring revision surgery, dislocation, iatrogenic fracture, iatrogenic injury to nerve/tendon/vessel. I discussed the rehabilitation of both surgeries with the patient's daughter as well. Following either surgery, she will likely be allowed to bear weight on her bilateral lower extremities following either surgery, and I explained that she probably would walk sooner following hemiarthroplasty. Both surgical pathways carry with them inherent risks including but not limited to: Loss of life/limb, anesthesia complications, DVT, infection, need for additional surgery, incomplete relief of pain, need for revision surgery, hardware complication, hardware failure. The patient's daughter understands these risks as well. Through a shared decision making model, and based upon the thorough discussion of risks and benefits, the patient notes that she believes her mother is quite ill, and is concerned about her ability to handle having bilateral hip hemiarthroplasties. Considering the patient's fractures appear most like a valgus impacted variant, I do think this is reasonable to pursue close reduction internal fixation as it is a surgery that may have less stress on the patient physiologically than bilateral hemiarthroplasties. Additionally, I did discuss this case with my trauma surgery mentor who agreed that closed reduction and internal fixation is the appropriate way to manage these fractures. No promises or guarantees were stated or implied to the patient or her daughter. The patient's daughter signed a phone consent for surgery in the presence of the patient's nurse Description of Procedure After informed consent was obtained, the patient was correctly identified in the preoperative holding suite, the operative sites were marked with the surgeon's initials, the date of surgery, and the word yes. The patient was then taken to the operative suite. The department of anesthesia administered General Anesthesia. The patient was transferred from the [facility] to the operative table. All bony prominences were well-padded. Briefing and timeout was performed. All implants were available and sterile at the time. BRIEFING AND DEBRIEFING: Pre and post operative briefing and debriefing was performed. Introductions were made, goals of the procedure were discussed, questions and concerns were addressed. The operative site markings were identified and appropriate. A time [id number] was performed, the patient's correct identity was confirmed and the correct operative sites were identified. The patients pre-operative antibiotic dosing and administration was confirmed along with other SCIP measures. The team was polled at the completion of the surgery and all team members were in agreement t hat the procedure was without complication, the counts are correct, the wound class was identified and suggestions for improvement were shared. Once the patient was properly positioned on the fracture table with all bony promises well-padded, we began by bringing in fluoroscopy prior to prepping and draping. We performed an internal and external rotation stress exam of the right hip which demonstrated that the hip moved as a unit, and as such we felt comfortable proceeding with closed reduction internal fixation. We then prepped and draped the right lower extremity in standard sterile fashion using ChloraPrep. We brought in fluoroscopy and marked out our bony landmarks. Through percutaneous stab incisions, we first started with the inferior most screw such that it started at or above the level of the lesser trochanter. This was aimed in a trajectory such that threads would cross the fracture site. This was advanced until subchondral bone was reached. We then repeated this pro cess for the 2 superior screws one posterior to midline and one anterior to midline. we attempted to diverge all of the screws. The wire lengths were then checked and Synthes 7.3 mm cannulated screws were selected. we began by over drilling the near cortex. We then placed the screw sequentially.The inferior calcar screw was placed first and measured 75 mm and a washer was placed on this. The posterior superior screw measured to be a 80 mm screw, and a washer was placed on this as well. The anterior superior screw measured 85 mm. No washer was placed on the final screw. We then checked final fluoroscopic images including over-roll shots to ensure that the screws were all extra articular. Once we were satisfied that they were all extra-articular, the wires were removed, the wounds irrigated, and the skin was closed with 3 oh-0 Monocryl and skin glue. 4 x 4, Tegaderm was then placed on the wound. We then removed the drapes and repositioned the room to begin working on the le ft side. The left lower extremity was also examined prior to prepping and draping with internal extra rotation stress using fluoroscopy. The hip moved as a unit, as such we proceeded with close reduction internal fixation. The left lower extremity was then prepped and draped in the same fashion. And proceeding just as above, we used fluoroscopy to make 3 percutaneous stab incision for our w ires. We advanced the wires in an inverted triangle fashion just as described above starting with the inferior calcar screw such that it was added above the level of the lesser trochanter. We placed 2 additional wire superior to the calcar screw, one anterior to midline and one posterior to midline. We advanced the wires until they reached subchondral bone. We attempted to diverge all of the screws. We then we proceeded to measure, overdrill the near cortex, and place appropriately sized screws into the left hip. We placed the calcar screw first which measured 75 mm and a washer was placed on this. Next, the posterior superior screw was placed and this measured 70 mm. No washer was placed here. Finally, we placed the anterior superior screw which measured 75 mm. We then checked final fluoroscopic images including overall shots to ensure that the screws were all extra-articular. Once we were satisfied with this, we removed the wires irrigated the wounds and closed the skin with 3-0 Monocryl and skin glue. 4 x 4's and Tegaderms were then placed on the wound. The patient tolerated this procedure well and was transferred to the PACU in stable condition. Prior to transportation to PACU, all counts were correct and a briefing was performed at the end of the case. Physician-directed fluoroscopy for greater than one hour was performed by myself to verify fracture alignment and the safe placement of all internal fixation. The final images saved to PACs showed views demonstrating satisfactory alignment of the fracture and stable internal fixation. Implant verification was performed by myself by reading and confirming the implant information on the packaging with the team before the sterile implants were opened. I was present for the entire procedure. Plan: Weight bearing status: as tolerated bilateral lower extremities Wound care: keep dressings clean and dry Range of motion: as tolerated VTE Prophylaxis: okay for DVT prophylaxis from orthopedic standpoint Antibiotics: perioperative Ancef Pain Control: Multimodal Vitamin D Replacement: labs ordered Discharge Plan: pending PT/OT Follow Up: with myself in 2 weeks Implants: Right hip:7.3 mm cannulated screws Synthes set 75 mm, 85 mm, 80 mm, 2 washers Left hip: 7.3 mm cannulated screws, Synthes set 70 mm x 1 , 75 mm x 2, 1 washer I attest to the content of the Intraoperative Record and any orders documented therein. Any exceptions are noted below.
[2024-08-26] MEDS: fentaNYL citrate PF 100 MCG/2 ML VIAL IV PRN (21:08)
[2024-08-26] MEDS: traZODone HCL 50 MG TAB PO SCH (22:35)
[2024-08-26] MEDS: ARIPiprazole 15 MG TAB PO SCH (22:36)
[2024-08-26] MEDS: CETIRIZINE HCL 10 MG TABLET PO SCH (22:36)
--- NOTE | 2024-08-26 23:39 | Anesthesiology Progress Note ---
Date of Service August 26, 2024 Anesthesia Post Procedure Vital Signs Vital Signs: Temp Pulse Pulse Resp BP BP Pulse Ox 08/26/24 22:48 36.3 C L 90 18 131/72 95 08/26/24 22:22 36.7 C 77 18 132/67 93 08/26/24 21:35 36.4 C L 83 12 143/69 H 94 08/26/24 21:25 80 16 125/66 93 08/26/24 21:15 71 18 130/62 93 08/26/24 21:05 83 16 137/68 95 08/26/24 20:55 75 18 133/56 L 94 08/26/24 20:45 82 16 142/47 H 98 08/26/24 20:38 36.2 C L 85 22 141/81 H 100 08/26/24 16:21 36.7 C 87 15 156/87 H 96 08/26/24 15:16 36.7 C 83 17 150/83 H 95 08/26/24 08:18 36.3 C L 94 H 15 126/74 94 08/26/24 01:10 36.7 C 80 18 125/72 96 O2 Del Method O2 Flow Rate 08/26/24 22:48 Room Air 08/26/24 22:22 Room Air 08/26/24 21:35 Room Air 08/26/24 21:25 Room Air 08/26/24 21:15 Room Air 08/26/24 21:05 Room Air 08/26/24 20:55 Room Air 08/26/24 20:45 Room Air 08/26/24 20:38 Oxymask 5 08/26/24 16:21 Room Air 08/26/24 15:16 Room Air 08/26/24 08:18 Room Air 08/26/24 01:10 Room Air Pain Intensity Left Hip: Pain Intensity: 10 Bilateral Hip: Pain Intensity: 8 Transfer of Care Handoff Completed per policy Notes Mental Status: alert / awake / arousable Patient Amnestic to Procedure: Yes Nausea / Vomiting: adequately controlled Pain: adequately controlled Airway Patency, RR, SpO2: stable & adequate BP & HR: stable & adequate Hydration State: stable & adequate Anesthetic Complications: no major complications apparent and Pt Satisfied with anesthetic care
--- NOTE | 2024-08-27 00:35 | XRay Report ---
Exam(s): XR BILATERAL HIP + PELVIS, 2-3 views EXAM: XR Bilateral Hips With Pelvis When Performed, 4 or More Views CLINICAL HISTORY: Reason for exam: postop. TECHNIQUE: Four or more views of the bilateral hips with pelvis when performed. COMPARISON: Pelvis x-ray 08/25/24. FINDINGS: Bones/joints: Interval ORIF with 3 pins in each hip. No new acute fracture. No dislocation. Soft tissues: Severe fecal loading of the colon. IMPRESSION: 1. Interval bilateral hip pinning. 2. No new fracture or complicating feature.. Electronically signed by: Floridalma Agrawal M.D. 08/27/24 00:34 AM
[2024-08-27 06:39] LABS: Hematocrit (blood only) 35.2 % (37.0-47.0); Hemoglobin 11.7 g/dl (12.0-16.0); Mean Corpuscular Hemoglobin 30.8 pg (25.0-34.0); Mean Corpuscular Hgb Conc 33.2 g/dL (32.0-36.0); Mean Corpuscular Volume 92.6 fL (80.0-100.0); Mean Platelet Volume 9.3 fL (9.4-12.4); Platelet Count 191 K/uL (130-400); RDW Coefficient of Variation 12.8 % (11.5-14.5); RDW Standard Deviation 43.5 fL (36.4-46.3); White Blood Count 7.76 K/ul (4.8-10.8)
--- NOTE | 2024-08-27 07:21 | Fluoroscopy Report ---
FL hip LT 2-3V CLINICAL HISTORY: B/L HIP PINNING COMPARISON STUDY: Status post left hip surgery FLUOROSCOPY TIME: 153.5 seconds FLUOROSCOPY IMAGES: 11 EXPOSURE DOSE: 24.03 mGy FINDINGS: Status post placement of 3 cannulated screws fixating the acute left femoral neck fracture. The hardware appears intact. Satisfactory alignment. IMPRESSION: Fluoroscopic assistance as above. ACT 112: Negative or not required by law. Electronically signed by: Jordin Cruz M.D. 08/27/2024 7:19 AM
--- NOTE | 2024-08-27 08:47 | Fluoroscopy Report ---
FL hip RT 2-3V CLINICAL HISTORY: B/L HIP PINNING COMPARISON STUDY: Right femur radiographs August 26, 2024. FLUOROSCOPY TIME: 159.2 seconds. Ka,r: 21.65 mGy FLUOROSCOPIC IMAGES: 11 FINDINGS: Fluoroscopy was provided during pinning of the right femoral neck fracture with 3 cannulate d screws. Fracture is nondisplaced. Hardware is intact. IMPRESSION: Fluoroscopy provided during pinning of the right femoral neck fracture. ACT 112: Negative or not required by law. Electronically signed by: Darin Calhoun M.D. 08/27/2024 8:46 AM
[2024-08-27 09:14] LABS: Albumin Globulin Ratio 1.4 (0.9-2); Albumin Level 3.4 gm/dl (3.4-5.0); BUN Creatinine Ratio 20.8 (10-20); Bilirubin,Total 0.5 mg/dl (0.2-1.0); Creatinine Clr Calc Pharmacy 58.7 ml/min; Globulin 2.5 gm/dl (2.5-4.0); Magnesium 1.9 mg/dl (1.7-2.4); Phosphorus 2.9 mg/dl (2.5-4.9); Total Protein 5.9 gm/dl (6.0-8.3)
--- NOTE | 2024-08-27 11:57 | Hospitalist Progress Note ---
Date of Service August 27, 2024 Assessment & Plan (1) Fall: (2) Bilateral hip fractures: (3) Ambulatory dysfunction: Plan This is a 68y/o F with PMH of hyperlipidemia, history of recurrent UTI, urge incontinence, history of calculus of kidney, chronic bilateral low back pain with left-sided sciatica, age-related osteoporosis, migraines, tardive dyskinesia, lumbar radiculopathy, history of memory loss, primary insomnia, history of chronic opioid use, bipolar I disorder, EVANS and panic disorder who presented to the ED on 07/26/2024 via EMS with complaints of generalized pain after falling out of bed. Ambulatory Dysfunction & Generalized Weakness Likely Age-Related Osteoporotic Bilateral Hip Fractures S/P Recent Falls: Found down in her bedroom, legs have been giving out. Daughter is concerned patient may have taking some of her methocarbamol at home Head CT, cervical/lumbar spine CT, L forearm XR & CXR were all unremarkable on admission. L femur XR --> Acute, comminuted and impacted transcervical/subcapital femoral neck fracture R femur XR --> Acute impacted R femoral neck fracture - not significantly displaced POD #1 s/p close reduction internal fixation of bilateral hips for bilateral femoral neck fractures by Dr. Martinez * WBAT on BLE * Follow up with ortho surgery in 2 weeks for wound check PT/OT evaluated today - recommending rehab CM placed referral to [facility] Other Chronic Medical Conditions: * GERD - Continue home omeprazole * History of migraines - Continue home Topamax * History of recurrent UTIs - UA unremarkable on admission * Bipolar I disorder/EVANS/panic disorder - Mental status stable. Continue home psych meds, on Klonopin PRN DVT Prophylaxis: SCDs, SQ heparin scheduled for tomorrow AM Code Status: FULL PCP: January Disposition: Admitted in Med/Surg - referral for [facility] pending Updated daughter, Danni (POJuan Carlos), over the phone today ([phone]) Care coordinated with Dr. Silva. Please see addendum. I spent a total of 40 minutes coordinating, documenting, and providing care for this patient excluding time spent in the performance of separately billed services. This included personally reviewing all current laboratories and imaging studies, medical reconciliation, outpatient chart review and discussion with specialists. Admission and Anticipated Discharge Date Admission Date: August 25, 2024 Supervising Physician Co-Signing Physician Notes I have seen and discussed the case with the collaborating advanced practitioner. I agree with the above PN. I have reviewed and confirmed the patients medical history, the findings on physical examination, and the patients diagnosis and treatment plan with Mike HAWKINS and agree with the information documented. I spent a total of 5minutes coordinating, documenting, and providing care for this patient excluding time spent in the performance of separately billed services. All of the aforementioned completed outside of collaborating with the assigned advanced practitioner for a full treatment plan. I have reviewed the advanced practitioner's documentation, and I agree with, and take responsibility for the plan of care Subjective Seen and examined in 357 bed 1. Was working with therapy earlier today and is now resting comfortably. Endorsing some pain in bilateral hips but improved with oral pain medication. Denies any other new symptoms overnight. No fever, chills, chest pain, shortness of breath, nausea, vomiting, abdominal pain, dysuria, diarrhea or constipation. Review of Systems Review of Systems: At least ten systems reviewed and negative except as noted in the HPI. Physical Exam Physical Exam: Gen: WD/WN, NAD,resting comfortably, A&Ox3, flat affect HEENT: Normocephalic, atraumatic, conjunctivae moist, sclerae anicteric, mucous membranes moist Lung: Clear to Auscultation bilaterally Heart: Regular rate, regular rhythm Abdomen: Soft, NT, ND +BS x 4 Extremities: + Lateral hip dressings visualized bilaterally, c/d/i Skin: Warm, no rash Results & Data Results & Data Vital Signs (Past 12 Hours) Vital Signs Temp Pulse Resp BP BP Pulse Ox O2 Del Method 08/27/24 07:44 36.2 C L 103 H 18 146/78 H 98 Room Air 08/27/24 05:30 36.3 C L 93 H 16 146/86 H 96 Room Air 08/27/24 01:25 36.6 C 96 H 18 143/72 H 98 Room Air 08/27/24 00:28 36.3 C L 90 16 128/69 95 Room Air Laboratory Results Short CBC 08/27/24 Range/Units 06:12 WBC 7.76 (4.8-10.8) K/ul Hgb 11.7 L (12.0-16.0) g/dl Hct 35.2 L (37.0-47.0) % Plt Count 191 (130-400) K/uL BMP 08/27/24 06:12 Sodium 139 Potassium 4.0 Chloride 108 H Carbon Dioxide 25 BUN 16 Creatinine 0.77 Glucose 135 H Calcium 9.0 Liver Function 08/27/24 Range/Units 06:12 Total Bilirubin 0.5 (0.2-1.0) mg/dl AST 15 (13-39) U/L ALT 11 (7-52) U/L Alkaline Phosphatase 58 (34-104) U/L Albumin 3.4 (3.4-5.0) gm/dl Diagnostic Findings Cervical Spine CT 08/25/24 18:30 Exam(s): CT C SPINE EXAM: CT Cervical Spine Without Intravenous Contrast CLINICAL HISTORY: Reason for exam: fall. TECHNIQUE: Axial computed tomography images of the cervical spine without intravenous contrast. CTDI is 25.45 mGy and DLP is 537.91 mGy-cm. Automated exposure control was utilized for the study. A dose lowering technique was utilized adhering to the principles of ALARA. COMPARISON: 04/21/24 FINDINGS: Vertebrae: No acute fracture or malalignment. Discs/spinal canal/neural foramina: No acute process. Degenerative changes as before Soft tissues: Unremarkable. IMPRESSION: No acute fracture or malalignment. Electronically signed by: Gaviota Aparicio M.D. 08/25/24 20:29 PM Chest X-Ray 08/25/24 18:30 Exam(s): XR CXR 1 VIEW EXAM: XR Chest, 1 View CLINICAL HISTORY: Reason for exam: weakness. TECHNIQUE: Frontal view of the chest. COMPARISON: 04/20/24. FINDINGS: Lungs: Eventration in the diagram, right greater than left . No confluent consolidation or overt edema. Pleural space: No pleural effusion. No pneumothorax. Mediastinum: Unremarkable. Bones/joints: No acute fracture. Left shoulder prosthesis. Upper abdomen: Unremarkable as visualized. IMPRESSION: No acute cardiopulmonary disease. Electronically signed by: Gaviota Aparicio M.D. 08/25/24 19:20 PM Forearm X-Ray 08/25/24 18:30 Exam(s): XR LEFT FOREARM, 2 views EXAM: XR Left Forearm, 2 Views CLINICAL HISTORY: Reason for exam: L skin tear. TECHNIQUE: Frontal and lateral views of the left forearm. COMPARISON: No relevant prior studies available. FINDINGS: Bones/joints: No acute fracture. Osteopenia. Soft tissues: No radiodense foreign body. IMPRESSION: No acute fracture. Electronically signed by: Gaviota Aparicio M.D. 08/25/24 19:[address] 08/25/24 18:30 Exam(s): CT HEAD Without Contrast EXAM: CT Head Without Intravenous Contrast CLINICAL HISTORY: Reason for exam: fall, L forehead contusion. TECHNIQUE: Axial computed tomography images of the head/brain without intravenous contrast. CTDI is 35.65 mGy and DLP is 624.41 mGy-cm. Automated exposure control was utilized for the study. A dose lowering technique was utilized adhering to the principles of ALARA. COMPARISON: 04/22/24. FINDINGS: Brain: No intracranial hemorrhage. Senescent changes with small vessel disease. Ventricles: No hydrocephalus. Bones/joints: No acute fracture. Soft tissues: Soft tissue swelling in the left frontal scalp-forehead. Sinuses: No acute sinusitis. Mastoid air cells: No mastoid effusion. Orbits: Cataract surgery. IMPRESSION: No acute intracranial hemorrhage. Electronically signed by: Gaviota Aparicio M.D. 08/25/24 20:26 PM Hip/Pelvis X-Ray 08/25/24 18:30 Exam(s): XR BILATERAL HIP + PELVIS, 1 view EXAM: XR Bilateral Hips With Pelvis When Performed, 2 or 3 Views CLINICAL HISTORY: Reason for exam: b/l hip pain. TECHNIQUE: Three or four views of the bilateral hips with pelvis when performed. COMPARISON: No relevant prior studies available. FINDINGS: Bones/joints: Subtle impacted subcapital femoral neck fractures bilaterally versus projectional artifact. Soft tissues: No radiodense foreign body. Vasculature: Dystrophic calcification and phleboliths in the pelvis. IMPRESSION: Subtle impacted subcapital femoral neck fractures bilaterally versus projectional artifact. Cross-sectional imaging is more sensitive and can further assess as clinically warranted. Electronically signed by: Gaviota Aparicio M.D. 08/25/24 20:[address] 08/25/24 18:30 Exam(s): CT L SPINE EXAM: CT Lumbar Spine Without Intravenous Contrast CLINICAL HISTORY: Reason for exam: pain. TECHNIQUE: Axial computed tomography images of the lumbar spine without intravenous contrast. CTDI is 27.4 mGy and DLP is 827 mGy-cm. Automated exposure control was utilized for the study. A dose lowering technique was utilized adhering to the principles of ALARA. COMPARISON: No relevant prior studies available. FINDINGS: Vertebrae: Unremarkable. No acute fracture. There is diffuse osteopenia throughout the visualized bones. Discs/spinal canal/neural foramina: No acute findings. No spinal canal stenosis. Soft tissues: Unremarkable. IMPRESSION: No evidence of acute lumbar spine pathology. Electronically signed by: Kendy William MD 08/25/24 23:[address] 08/25/24 23:19 EXAM: CT hip LT wo con CLINICAL HISTORY: PAIN AT HIPS EVAL FOR FX TECHNIQUE: Contiguous axial CT images of left hip were obtained without intravenous contrast. Coronal and sagittal reconstructions were likewise performed and indicated to increase the sensitivity for detecting clinically relevant pathology. CT scan was performed according to ALARA (as low as reasonable achievable). COMPARISON: None. FINDINGS: Impacted fracture is noted involving neck of left femur. No dislocation. No destructive osseous lesion. The visualized muscles and tendons appear grossly unremarkable. No cortical destruction to suggest osteomyelitis. No abscess formation. No significant joint effusion. There are no soft tissue masses. Normal subcutaneous adipose space. IMPRESSION: 1. Impacted subcapital left femoral neck fracture. Electronically signed by Lucio Oneill 08-26-2024 01:[address] 08/25/24 23:19 EXAM: CT hip RT wo con CLINICAL HISTORY: PAIN AT HIPS EVAL FOR FX TECHNIQUE: Contiguous axial CT images of right hip were obtained without intravenous contrast. Coronal and sagittal reconstructions were likewise performed and indicated to increase the sensitivity for detecting clinically relevant pathology. CT scan was performed according to ALARA (as low as reasonable achievable). COMPARISON: None. FINDINGS: Linear displaced fracture is noted along the neck of right femur No dislocation. No destructive osseous lesion. The visualized muscles and tendons appear grossly unremarkable. No cortical destruction to suggest osteomyelitis. No abscess formation. No significant joint effusion. There are no soft tissue masses. Normal subcutaneous adipose space. IMPRESSION: Linear displaced fracture is noted along the neck of right femur. Electronically signed by Lucio Oneill 08-26-2024 12:59 AM Hip X-Ray 08/26/24 00:00 FL hip RT 2-3V CLINICAL HISTORY: B/L HIP PINNING COMPARISON STUDY: Right femur radiographs August 26, 2024. FLUOROSCOPY TIME: 159.2 seconds. Ka,r: 21.65 mGy FLUOROSCOPIC IMAGES: 11 FINDINGS: Fluoroscopy was provided during pinning of the right femoral neck fracture with 3 cannulated screws. Fracture is nondisplaced. Hardware is intact. IMPRESSION: Fluoroscopy provided during pinning of the right femoral neck fracture. ACT 112: Negative or not required by law. Electronically signed by: Darin Calhoun M.D. 08/27/2024 8:46 AM Hip X-Ray 08/26/24 00:00 FL hip LT 2-3V CLINICAL HISTORY: B/L HIP PINNING COMPARISON STUDY: Status post left hip surgery FLUOROSCOPY TIME: 153.5 seconds FLUOROSCOPY IMAGES: 11 EXPOSURE DOSE: 24.03 mGy FINDINGS: Status post placement of 3 cannulated screws fixating the acute left femoral neck fracture. The hardware appears intact. Satisfactory alignment. IMPRESSION: Fluoroscopic assistance as above. ACT 112: Negative or not required by law. Electronically signed by: Jordin Cruz M.D. 08/27/2024 7:19 AM Femur X-Ray 08/26/24 08:06 XR femur LT 2V routine HISTORY: 68 years-old Female hip fracture COMPARISON: CT 08/26/2024 TECHNIQUE: 2 views of the left femur FINDINGS: There is an acute comminuted and impacted subcapital/transcervical left femoral fracture. No dislocation. Mild to moderate osteoarthritis of the hip. IMPRESSION: Acute, comminuted and impacted transcervical/subcapital femoral neck fracture. ACT 112: Negative or not required by law. The above report was generated using voice recognition software. It may contain grammatical, syntax or spelling errors. Electronically signed by: Jordin Cruz M.D. 08/26/2024 9:21 AM Femur X-Ray 08/26/24 08:06 XR femur RT 2V routine CLINICAL HISTORY: Hip fracture. COMPARISON: Right hip radiographs August 25, [address] of the right hip August 26, 2024. FINDINGS: Alignment of an acute impacted right femoral neck fracture is similar to prior radiographs and CT. The fracture is not significantly displaced. No additional fractures are present. Lateral plate and screw fixation within the proximal right tibia is partially imaged. IMPRESSION: Acute impacted right femoral neck fracture. Fracture not significantly displaced. ACT 112: Negative or not required by law. Electronically signed by: Darin Calhoun M.D. 08/26/2024 9:09 AM Shoulder X-Ray 08/26/24 08:10 XR shoulder LT min 2V routine HISTORY: 68 years-old Female pain acute left shoulder pain COMPARISON: Chest radiograph 08/25/2024 TECHNIQUE: 2 views of the left shoulder FINDINGS: Reverse left shoulder arthroplasty demonstrates satisfactory alignment. No acute fracture, dislocation or evidence of hardware loosening. Mild to moderate AC joint osteoarthritis. Chronic appearing lateral left rib fractures. IMPRESSION: 1. No acute fracture or dislocation. 2. Unremarkable appearance of the reverse shoulder arthroplasty. ACT 112: Negative or not required by law. The above report was generated using voice recognition software. It may contain grammatical, syntax or spelling errors. Electronically signed by: Jordin Cruz M.D. 08/26/2024 9:18 AM Hip/Pelvis X-Ray 08/26/24 20:29 Exam(s): XR BILATERAL HIP + PELVIS, 2-3 views EXAM: XR Bilateral Hips With Pelvis When Performed, 4 or More Views CLINICAL HISTORY: Reason for exam: postop. TECHNIQUE: Four or more views of the bilateral hips with pelvis when performed. COMPARISON: Pelvis x-ray 08/25/24. FINDINGS: Bones/joints: Interval ORIF with 3 pins in each hip. No new acute fracture. No dislocation. Soft tissues: Severe fecal loading of the colon. IMPRESSION: 1. Interval bilateral hip pinning. 2. No new fracture or complicating feature.. Electronically signed by: Floridalma Agrawal M.D. 08/27/24 00:34 AM (1) Fall Encounter type: sequela Qualified Code(s): W19.XXXS - Unspecified fall, sequela (2) Bilateral hip fractures Encounter type: initial encounter Fracture type: closed Qualified Code(s): S72.001A - Fracture of unspecified part of neck of right femur, initial encounter for closed fracture; S72.002A - Fracture of unspecified part of neck of left femur, initial encounter for closed fracture
--- NOTE | 2024-08-27 13:21 | Orthopedic Progress Note ---
Date of Service August 27, 2024 Assessment & Plan (1) Bilateral hip fractures: (2) Acute dehydration: (3) Fall: (4) Suicide attempt by drug overdose: (5) MDD (major depressive disorder), recurrent severe, without psychosis: (6) Intentional overdose of beta-adrenergic blocking drug: (7) Ambulatory dysfunction: Plan 68-year-old female postoperative day 1 status post close reduction internal fixation of bilateral hips for bilateral femoral neck fractures. Overall, the p atient is doing well. She should work with physical therapy and Occupational Therapy to determine an appropriate discharge plan. She may weight-bear as tolerated on bilateral lower extremities. Okay for DVT prophylaxis from an orthopedic standpoint. She will follow-up with me in 2 weeks for wound check. Admission and Anticipated Discharge Date Admission Date: August 25, 2024 Subjective Patient seen and examined at bedside. She notes that she still has some pain, b ut her hip pain is improved. Review of Systems Review of Systems: Unobtainable due to cognitive status Results & Data Vital Signs (Past 12 Hours) Vital Signs Temp Pulse Resp BP BP Pulse Ox O2 Del Method 08/27/24 07:44 36.2 C L 103 H 18 146/78 H 98 Room Air 08/27/24 05:30 36.3 C L 93 H 16 146/86 H 96 Room Air 08/27/24 01:25 36.6 C 96 H 18 143/72 H 98 Room Air (1) Bilateral hip fractures Encounter type: initial encounter Fracture type: closed Qualified Code(s): S72.001A - Fracture of unspecified part of neck of right femur, initial encounter for closed fracture; S72.002A - Fracture of unspecified part of neck of left femur, initial encounter for closed fracture (3) Fall Encounter type: sequela Qualified Code(s): W19.XXXS - Unspecified fall, sequela
[2024-08-27] MEDS: ACETAMINOPHEN 500 MG TAB PO SCH (13:36)
[2024-08-27] MEDS: oxyCODONE HCL IR 5 MG TAB (IMMEDIATE RELEASE) PO PRN (13:37)
[2024-08-28] MEDS: clonazePAM 0.5 MG TAB PO PRN (06:12)
[2024-08-28 07:24] LABS: Hematocrit (blood only) 30.8 % (37.0-47.0); Hemoglobin 10.3 g/dl (12.0-16.0); Mean Corpuscular Hemoglobin 30.7 pg (25.0-34.0); Mean Corpuscular Hgb Conc 33.4 g/dL (32.0-36.0); Mean Corpuscular Volume 91.9 fL (80.0-100.0); Mean Platelet Volume 9.5 fL (9.4-12.4); Platelet Count 177 K/uL (130-400); RDW Standard Deviation 43.4 fL (36.4-46.3); Red Blood Count 3.35 M/uL (4.20-5.40); White Blood Count 7.29 K/ul (4.8-10.8)
[2024-08-28 07:43] LABS: BUN Creatinine Ratio 22.4 (10-20); Calcium 8.6 mg/dl (8.6-10.3); Creatinine Clr Calc Pharmacy 59.5 ml/min; Potassium 3.8 mmol/L (3.5-5.1)
[2024-08-28] MEDS: POLYETHYLENE (MIRALAX) 17 GM PACK PO PRN (08:17)
[2024-08-28] MEDS: HEPARIN SOD 5,000 UNIT/0.5 ML VIAL SQ SCH (08:17)
[2024-08-28] MEDS: DOCUSATE SODIUM 100 MG CAP PO SCH (11:29)
--- NOTE | 2024-08-28 12:29 | Orthopedic Progress Note ---
Date of Service August 28, 2024 Assessment & Plan (1) Bilateral hip fractures: (2) Acute dehydration: (3) Fall: (4) Suicide attempt by drug overdose: (5) MDD (major depressive disorder), recurrent severe, without psychosis: (6) Intentional overdose of beta-adrenergic blocking drug: (7) Ambulatory dysfunction: Plan 68-year-old female postoperative day 2 status post close reduction internal fixation of bilateral hips for bilateral femoral neck fractures. Overall, the p atient is doing well. She should work with physical therapy and Occupational Therapy to determine an appropriate discharge plan. She may weight-bear as tolerated on bilateral lower extremities. Okay for DVT prophylaxis from an orthopedic standpoint. She will follow-up with me in 2 weeks for wound check. Admission and Anticipated Discharge Date Admission Date: August 25, 2024 Subjective Patient resting comfortably in bed this morning. Notes hip pain is still presen t but improved. Review of Systems Review of Systems: Negative unless otherwise stated above Results & Data Vital Signs (Past 12 Hours) Vital Signs Temp Pulse Resp BP BP Pulse Ox O2 Del Method 08/28/24 12:21 37.3 C 95 H 15 129/71 96 Room Air 08/28/24 08:02 36.5 C 94 H 16 119/70 94 Room Air (1) Bilateral hip fractures Encounter type: initial encounter Fracture type: closed Qualified Code(s): S72.001A - Fracture of unspecified part of neck of right femur, initial encounter for closed fracture; S72.002A - Fracture of unspecified part of neck of left femur, initial encounter for closed fracture (3) Fall Encounter type: sequela Qualified Code(s): W19.XXXS - Unspecified fall, sequela
[2024-08-28] MEDS: POLYETHYLENE (MIRALAX) 17 GM PACK PO SCH (13:17)
--- OUTSIDE RECORDS SUMMARY | 2024-08-28 14:35 | External Medical Summary | Summary of Care ---
Author Name Unknown Organization [facility] Address [address] [place] [address] Phone [phone] Care Team Providers Care Veneer Sheet Repairer Name Role Phone Edu Torre MD Primary Care Provider [phone] Reason for Visit * Reason Comments Medication Refill Encounter Details Date Type Department Care Team (Late st Contact Info) Description 08/07/2024 Refill Psychiatry [place] [address] [place] [address] Kimi Bro MD [address] [place] [address] Bipolar I disorder, most recent episode depressed (HCC) Allergies Active Allergy Reactions Criticality Noted Date Comments Prochlorperazine Other (Please comment) Medium 07/30/2022 Generalized weakness Morphine And Codeine Nausea/vomiting,Oth er (Please comment) Medium 07/30/2022 Room spinning as well documented as of this encounter (statuses as of 08/09/2024) Medications Atorvastatin Calcium 40 MG Oral Tablet (Lipitor) Take 1 Tablet by mouth in the morning. Active Fiber 625 MG Oral Tablet Take 1 Tablet by mouth daily. Active polyethylene glycol 3350 119 gram OR POWD Take 119 g by mouth as needed for Constipation. Active AZO Cranberry 250-30 MG Oral Tablet Take 1 Tablet by mouth daily. Active Estradiol 0.1 MG/GM Vaginal Cream (Estrace) Apply pea sized amount (0.5 gm) vaginally twice a week at bedtime. 42.5 g 3 4 2:03 PM EDT 08/01/20 23 Active Levocetirizine Dihydrochloride 5 MG Oral TabletIndications:C OVID-19 TAKE ONE TABLET BY MOUTH EVERY EVENING 100 Tablet 2 4 4:03 PM EDT 09/02/20 23 024 Active Nitrofurantoin Monohyd Macro 100 MG Oral Capsule (Macrobid) Take 1 Capsule by mouth in the morning and 1 Capsule before bedtime. With food.. 90 Capsule 1 09/05/20 23 Active Additional Information Patient not taking.Reported on 04/19/2024 Ondansetron 4 MG Oral Tablet Disintegrating (Zofran)Indications :Nausea Place 1 Tablet on tongue every 8 hours as needed for Nausea. dissolve on tongue. 20 Tablet 09/12/20 23 Active Additional Information Patient not taking.Reported on 04/19/2024 Omeprazole 40 MG Oral Capsule Delayed Release (PriLOSEC)Indicatio ns:Gastroesophageal reflux disease, unspecified whether esophagitis present TAKE ONE CAPSULE BY MOUTH EVERY MORNING ONE HOUR BEFORE THE FIRST MEAL OF THE DAY. 100 Capsule 3 4 10:06 AM EDT 01/03/20 24 025 Active Alendronate Sodium 70 MG Oral Tablet (Fosamax)Indication s:Age-related osteoporosis with current pathological fracture, initial encounter Take one Tablet by mouth once a week. with 8 oz. water 30 minutes before first meal of the day. Remain upright for 30 min after taking tablet. 12 Tablet 1 4 8:08 AM EDT 03/05/20 24 Active Additional Information Patient taking differently:70 mg Oral QWEEK,SATURDAYS, Reported on 04/19/2024 Topiramate 50 MG Oral Tablet (topAMAX) Take 1 Tablet by mouth in the morning. 90 Tablet 3 4 6:55 AM EDT 06/01/20 24 Active Mirabegron ER 50 MG Oral Tablet Extended Release 24 Hour (Myrbetriq) Take 1 Tablet by mouth in the morning. 90 Tablet 3 4 10:27 AM EST 06/01/20 24 Active Sennosides-Docusate Sodium 8.6-50 MG Oral Tablet (Senokot-S)Indicati ons:Drug induced constipation Take 1 Tablet by mouth in the morning. 90 Tablet 3 4 9:52 AM EDT 06/02/20 24 Active Folic Acid 1 MG Oral Tablet Take 1 Tablet by mouth in the morning. 90 Tablet 3 4 8:53 AM EDT 06/04/20 24 Active HYDROcodone-Acetami nophen 5-325 MG Oral TabletIndications:L umbar radiculopathy Take 1 Tablet by mouth every 6 hours as needed for severe pain 120 Tablet 4 12:02 PM EDT 07/05/20 24 Active DULoxetine HCl 20 MG Oral Capsule Delayed Release Particles (Cymbalta)Indicatio ns:EVANS (generalized anxiety disorder),Bipolar I disorder, most recent episode depressed (HCC),Panic disorder Take 1 Capsule by mouth at bedtime. Do not cut, crush or chew 15 Capsule 07/11/20 24 Active DULoxetine HCl 30 MG Oral Capsule Delayed Release Particles (Cymbalta)Indicatio ns:EVANS (generalized anxiety disorder),Bipolar I disorder, most recent episode depressed (HCC),Panic disorder Take 1 Capsule by mouth in the morning and 1 Capsule before bedtime. Do not cut, crush or chew. 30 Capsule 07/11/20 24 Active DULoxetine HCl 30 MG Oral Capsule Delayed Release Particles (Cymbalta)Indicatio ns:EVANS (generalized anxiety disorder),Panic disorder Take 1 Capsule by mouth in the morning and 1 Capsule before bedtime. 180 Capsule 3 4 12:34 PM EST 07/11/20 24 Active DULoxetine HCl 20 MG Oral Capsule Delayed Release Particles (Cymbalta)Indicatio ns:EVANS (generalized anxiety disorder),Bipolar I disorder, most recent episode depressed (HCC) Take 1 Capsule by mouth every night at bedtime along With 30 mg capsule 90 Capsule 3 4 9:56 AM EST 07/11/20 24 Active ARIPiprazole 15 MG Oral Tablet (Abilify)Indication s:Bipolar I disorder, most recent episode depressed (HCC) Take 1 Tablet by mouth every night at bedtime. 90 Tablet 4 10:16 AM EST 07/19/20 24 Active traZODone HCl 100 MG Oral Tablet (Desyrel)Indication s:EVANS (generalized anxiety disorder),Panic disorder Take 1.5 Tablets by mouth at bedtime. 135 Tablet 07/30/20 24 025 Active Lubiprostone 24 MCG Oral Capsule (Amitiza)Indication s:Opioid-induced constipation Take 1 Capsule by mouth 2 times a day with morning and evening meals. 60 Capsule 3 08/04/20 24 Active clonazePAM 0.5 MG Oral Tablet (KlonoPIN)Indicatio ns:Bipolar I disorder, most recent episode depressed (HCC) Take one tablet by mouth in the morning and one tablet in the evening as needed. 45 Tablet 4 5:16 PM EST 08/06/20 24 Active documented as of this encounter (statuses as of 08/09/2024) Active Problems Problem Noted Date Diagnosed Date Food insecurity 07/05/2024 Overview: Per [facility] Protocol Migraine without status migrainosus, not intract able 06/02/2024 Hyperlipidemia 06/02/2024 EVANS (generalized anxiety disorder) 09/12/2023 Panic disorder [...] as of this encounter (statuses as of 08/09/2024) Resolved Problems Problem Noted Date Diagnosed Date Resolved Date Bipolar disorder 07/30/2022 11/15/2022 Overview (11/15/2022): More recent.specified code listed on PL documented as of this encounter (statuses as of 08/09/2024) Immunizations Name Administration Dates Next Due Pneumococcal [...] Answer Date Recorded PHQ Adult Total Score 3 07/16/2024 Hunger Vital Sign Answer Date Recorded Within the past 12 months, y ou worried that your food would run out before you got the money to buy more. Never true Within the past 12 months, t he food you bought just didn't last and you didn't have money to get more. Sometimes true Childcare Answer Date Recorded Do you feel overwhelmed with taking care of a child, family member or friend? No 06/21/2024 Does your family need help f inding childcare? (Household - for ages 0-17 years) Not on file 06/21/2024 Clothing Answer Date Recorded Have you been unable to get clothing when it was really needed? No 06/21/2024 Is your family able to get c lothes or diapers when needed? (Household - for ages 0-17 years) Not on file 06/21/2024 Personal Safety Answer Date Recorded Do you feel unsafe or have concerns for your saf ety? No 06/21/2024 Do you have concerns for you r family's safety? (Household - for ages 0-17 years) Not on file 06/21/2024 Utilities Answer Date Recorded Do you have trouble paying y our heating, water, or electric bill? Yes 06/21/2024 Is your family able to pay t he heat, water, or electric bill? (Household - for ages 0-17 years) Not on file 06/21/2024 Does your family have access to good internet? (Household - for ages 0-17 years) Not on file 06/21/2024 Employment Status Answer Date Recorded Are you unemployed or without regular income? No 06/21/2024 Does the household have a re gular source of income? (Household - for ages 0-17 years) Not on file 06/21/2024 Social Connections Answer Date Recorded How often do you feel lonely or isolated from those around you? Sometimes 06/21/2024 Financial Resource Strain Answer Date R ecorded Do you have any trouble payi ng for your medications, or do you think you might in the future? No 06/21/2024 Does your family have troubl e paying for medicine? (Household - for ages 0-17 years) Not on file 06/21/2024 Transportation Needs Answer Date Record ed READ ONLY Do you have troubl e getting a ride to medical visits or work? Never True 06/21/2024 Does your family have a hard time getting a ride to doctors visits? (Household - for ages 0-17 years) Not on file 06/21/2024 Has lack of transportation k ept you from medical appointments, meetings, work, or from getting things needed for daily living? Check all that apply. No 06/21/2024 Do you (or your family) have trouble finding or paying for a ride (transportation)? (Household - for ages 0-17 years) Not on file 06/21/2024 Housing Stability Answer Date Recorded Do you currently live in a s helter or have no steady place to sleep at night? No 06/21/2024 READ ONLY Do you think you a re at risk of becoming homeless? No 06/21/2024 Does your family worry about paying for your home or becoming homeless? (Household - for ages 0-17 years) Not on file 0 06/21/2024 Are you homeless or worried that you might be in the future? No 06/21/2024 Are you (or your family) atul eless or worried that you might be in the future? (Household - for ages 0-17 years) Not on file Food Insecurity Answer Date Recorded Do you need food for this week? Yes 06/21/2024 Are you able to get enough f ood for your family? (Household - for ages 0-17 years) Not on file 06/21/2024 Does your family need food t his week? (Household - for ages 0-17 years) Not on file 06/21/2024 Do you always have enough fo od for your family? (Household - for ages 0-17 years) Not on file 06/21/2024 Comments No Sex and Gender Information Value Date Recorded Sex Assigned at Female 06/23/2023 11:02 AM EDT Legal Sex Female 11:43 AM EDT Gender Identity Transgender Female 06/23/2023 11 :02 AM EDT Sexual Orientation Straight 06/23/2023 11 :02 AM EDT documented as of this encounter Miscellaneous Notes * Telephone Encounter - Kimi Bro MD - 08/09/2024 11:37 AM EST Refused Prescriptions: Disp Refills clonazePAM 0.5 MG Oral Tablet (KlonoPIN) 45 Tab*0 Sig: Take one tablet by mouth in the morning and one tablet in the evening as needed. Refused By: KIMI BRO Reason for Refusal: Other (comment below) Reason for Refusal Comment: As per PDMP already filled on 08/06/24 * Telephone Encounter - Mino Hinojosa MD - 08/09/2024 5:16 AM ESTPending Prescriptions: Disp Refills clonazePAM 0.5 MG Oral Tablet (KlonoPIN) 45 Tab*0 Sig: Take onetablet by mouth in the morning and one tablet in the evening as needed. documented in this encounter Plan of Treatment Upcoming Encounters Date Type Department Care Team (Late st Contact Info) Description 08/20/2024 3:00 PM EST Office Visit Neurology [facility] [address] [place] [address] Ekta Carter CRNP [address] [place] [address] 09/01/2024 2:00 PM EST Office Visit [facility] [address] [place] [address] Edu Torre MD [address] [place] [address] 09/03/2024 1:00 PM EST Telemedicine Psychiatry [facility] [address] [place] [address] Kimi Bro MD [address] [place] [address] 09/09/2024 1:30 PM EST Telemedicine Psychology [facility] [address] [facility] [place] [address] Telma Tyson, ROLL TENSION TESTER [address] [place] [address] 09/17/2024 2:00 PM EST Office Visit [facility] [place] [address] Zonia Marvin Au.D. [address] [place] [address] 12/17/2024 1:00 PM EDT Hospital Encounter [facility] End[facility] Room [facility] [address] [place] [phone] Kurtis Bone MD [address] [place] [address] 12/17/2024 1:00 PM EDT - 12/17/2024 1:30 PM EDT Surgery [facility], End[facility] [address] [place] [phone] Kurtis Bone MD [address] [place] [address] COLONOSCOPY FLEXIBLE PROXIMAL DIAGNOSTIC 02/02/2025 1:30 PM EDT Office Visit Urology, [facility] [address] [place] [address] Arturo Ewing MD [address] [place] [address] Scheduled Procedures Name Priority Associated Diagnoses Date/Ti me COLONOSCOPY FLEXIBLE PROXIMAL DIAGNOSTIC Recall Adenomatous polyp of colon, unspecified part of colon Fecal occult blood test positive 12/17/2024 1:00 PM EDT Health Maintenance Due Date Last Done Comments Cologuard 1998 Colonoscopy 1998 Sigmoidoscopy 1998 Adult Wellness Visit 2019 Mammogram 02/15/2024 02/14/2023, 02/14/2023 COVID-19 Vaccine ( season) 2024 11/20/2020, 10/23/2020 Influenza Vaccine (FLU shot) (#1) 2024 DXA Scan 01/27/2025 01/27/2023 Colorectal Cancer Screening 05/26/2025 Fecal Occult Blood Test 05/26/2025 05/26/20 24, 05/26/2024, 08/29/2022, Additional history exists Lipid Panel 08/13/2027 08/13/2022 VITAMIN D LEVEL ONCE IN A LIFETIME-USE SMARTSET# [id number] Completed 01/27/2023, 08/13/2022 Pneumococcal Vaccine: 65+ Years Completed 04/22/2023 DTap/Tdap Vaccines Discontinued HPV (Gardasil) Vaccine Aged Out [...] polyp of colon, unspecified part of colon Fecal occult blood test positive Nonspecific abnormal finding in stool contents documented in this encounter Care Teams Veneer Sheet Repairer Relationship Specialty Start Date End Date January, Edu Camacho MD [address] [place] [address] PCP - General Family Medicine 07/30/22 documented as of this encounter
--- OUTSIDE RECORDS SUMMARY | 2024-08-28 14:35 | External Medical Summary | Summary of Care ---
Author Name Unknown Organization [facility] Address [address] [place] [address] Phone [phone] Care Team Providers Care Process Safety Engineering Technologist Name Role Phone Andrés Nguyen MD Primary Care Provider [phone] Reason for Visit * Reason Comments Medication Refill Encounter Details Date Type Department Care Team (Late st Contact Info) Description 08/17/[address] [address] Andrés Nguyen MD [address] [place] [address] [phone] Age-related osteoporosis with current pathological fracture, initial encounter Allergies Active Allergy Reactions Criticality Noted Date Comments Prochlorperazine Other (Please comment) Medium 07/30/2022 Generalized weakness Morphine And Codeine Nausea/vomiting,Oth er (Please comment) Medium 07/30/2022 Room spinning as well documented as of this encounter (statuses as of 08/18/2024) Medications Atorvastatin Calcium 40 MG Oral Tablet [...] bedtime. With food.. 90 Capsule 1 09/05/20 Active Additional Information Patient not taking.Reported on [...] 10:06 AM EDT 01/03/20 24 025 Active Topiramate 50 MG Oral Tablet (topAMAX) [...] 4 8:53 AM EDT 06/04/20 24 Active DULoxetine HCl 20 MG Oral [...] morning and evening meals. 60 Capsule 3 4 3:22 PM EST 08/04/20 24 Active clonazePAM 0.5 MG Oral Tablet (KlonoPIN)Indicatio ns:Bipolar I disorder, most recent episode depressed (HCC) Take one tablet by mouth in the morning and one tablet in the evening as needed. 45 Tablet 4 8:52 AM EST 08/06/20 24 Active HYDROcodone-Acetami nophen 5-325 MG Oral TabletIndications:L umbar radiculopathy Take 1 Tablet by mouth every 6 hours as needed for severe pain 120 Tablet 4 10:20 AM EST 08/09/20 24 Active Alendronate Sodium 70 MG Oral Tablet (Fosamax)Indication s:Age-related osteoporosis with current pathological fracture, initial encounter Take one Tablet by mouth once a week. with 8 oz. water 30 minutes before first meal of the day. Remain upright for 30 min after taking tablet. 12 Tablet 1 08/18/20 24 Active Alendronate Sodium 70 MG Oral Tablet (Fosamax)Indication s:Age-related osteoporosis with current pathological fracture, initial encounter Take one Tablet by mouth once a week. with 8 oz. water 30 minutes before first meal of the day. Remain upright for 30 min after taking tablet. 12 Tablet 1 4 8:08 AM EDT 03/05/20 24 024 Discontin ued(Refil l) documented as of this encounter (statuses as of 08/18/2024) Active Problems Problem Noted Date Diagnosed Date Food insecurity 07/05/2024 Overview: Per [facility] Protocol Migraine without status migrainosus, not [...] as of this encounter (statuses as of 08/18/2024) Resolved Problems Problem Noted Date Diagnosed Date Resolved Date Bipolar disorder 07/30/2022 11/15/2022 Overview (11/15/2022): More recent.specified code listed on PL documented as of this encounter (statuses as of 08/18/2024) Immunizations Name Administration Dates Next Due Pneumococcal [...] encounter Miscellaneous Notes * Telephone Encounter - Abby Newberry [facility] - 08/18/2024 5:13 AM ESTSigned Prescriptions: Disp Refills Alendronate Sodium 70 MG Oral Tablet (Fosa*12 Tab*1 Sig: Take one Tablet by mouth once a week. with 8 oz. water 30 minutes before first meal of the day. Remain upright for 30 min after taking tablet. Authorizing Provider: ANDRÉS NGUYEN Ordering User: ABBY NEWBERRY * Telephone Encounter - Chloé Call CPhT - 08/17/2024 4:21 PM EST Did you pend patient's preferred pharmacy and medication before forwarding?yes Pharmacy: [facility] Pending Prescriptions: Disp Refills Alendronate Sodium 70 MG Oral Tablet (Fos*12 Tab*1 Sig: Take one Tablet by mouth once a week. with 8 oz. water 30 minutes before first meal of the day. Remain upright for 30 min after taking tablet. Last Visit: 06/02/2024 (in office), 08/27/2022 (telemedicine) Next Visit: Visit date not found If no future appointments scheduled, and last appointment is greater than a year ago, please schedule patient for a follow-up appointment Last date the medication was ordered: 03/05/24 Is this request for a controlled substance?No Urine Drug Screen: Results for orders placed or performed in visit on 05/08/24 TOXICOLOGY, URINE SCREEN W/ CONFIRMATION Result Value Amphetamines Screen, U Positive (A) Benzodiazepines Screen, U Positive (A) Cannabinoids Screen, U Negative Cocaine Metabolite Screen, U Negative Fentanyl Screen, U Negative Hydrocodone Screen, U Positive (A) Methadone Metabolite Screen, U Negative Morphine/Codeine Screen, U Positive (A) Oxycodone Screen, U Negative Narrative Cutoff Concentrations: Drug Level Amphetamines 500 ng/mL Benzodiazepines 100 ng/mL Cannabinoids 50 ng/mL Cocaine Metabolite 150 ng/mL Fentanyl 1 ng/mL Hydrocodone / Hydromorphone 300 ng/mL Methadone Metabolite 100 ng/mL Morphine / Codeine 300 ng/mL Oxycodone / Oxymorphone 100 ng/mL Screening results are presumptive and can only be used for medical purposes. Positive screening results are reflexed to confirmatory testing. Results for orders placed or performed in visit on 09/06/22 PAIN MANAGEMENT DRUG PANEL, URINE W/ INTERPRETATION Result Value Compliance Interpretation Based on the medication information provided and from [facility]: Please note hydrocodone and hydrocodone metabolite, dihydrocodeine, [...] 05:33 AM TSH 0.95 08/13/2022 11:56 AM LDL 95 08/13/2022 11:56 AM ALT 12 01/27/2023 01:59 PM HGBA1C 5.6 08/13/2022 11:56 AM documented in this encounter Plan of Treatment Upcoming Encounters Date Type Department Care Team (Late st Contact Info) Description 09/01/2024 2:00 PM EST Office Visit [facility] [address] [place] [phone] JanuaryAndrés MD [address] [place] [address] 09/03/2024 1:00 PM EST Telemedicine Psychiatry [facility] [address] [place] [address] Kimi Bro MD [address] [place] [address] 09/09/2024 1:30 PM EST Telemedicine Psychology [facility] [address] [facility] [place] [address] Telma Tyson, PHOSPHORIC ACID OPERATOR [address] [facility] [place] [address] 09/17/2024 2:00 PM EST Office Visit Audiology [facility] [address] [facility] [place] [address] Zonia Marvin Au.D. [address] [place] [address] 11/25/2024 3:00 PM EST Telemedicine Neurology [address] [place], [place] [address] Ekta Carter, DEWAYNE [address] [place] [address] 12/17/2024 1:00 PM EDT Hospital Encounter [facility], Endoscopy Room [facility] [address] [place] [phone] Kurtis Bone MD [address] [place] [address] 12/17/2024 1:00 PM EDT - 12/17/2024 1:30 PM EDT Surgery [facility], Endoscopy Room [facility] [address] [place] [phone] Kurtis Bone MD [address] [place] [address] COLONOSCOPY FLEXIBLE PROXIMAL DIAGNOSTIC 02/02/2025 1:30 PM EDT Office Visit Urology, [facility] [address] [place] [address] Arturo Ewing MD [address] [place] [address] Scheduled Procedures Name Priority Associated Diagnoses Date/Ti [...] D LEVEL ONCE IN A LIFETIME-USE SMARTSET# [id number] Completed 01/27/2023, 08/13/2022 Pneumococcal Vaccine: 65+ Years [...] contents documented in this encounter Care Teams Process Safety Engineering Technologist Relationship Specialty Start Date End Date January, Andrés Camacho MD [address] [place] [address] PCP - General Family Medicine 07/30/22 documented as of this encounter
--- OUTSIDE RECORDS SUMMARY | 2024-08-28 14:35 | External Medical Summary | Summary of Care ---
Author Name Unknown Organization [facility] Address [address] [place] [address] Phone [phone] Care Team Providers Care Core Blower Operator Name Role Phone Edu Torre MD Primary Care Provider [phone] Reason for Visit * Reason Onset Date Comments Test Results 05/21/2024 Encounter Details Date Type Department Care Team (Late st Contact Info) Description 05/21/2024 Telephone Neurology, Shweta [address] [place] [address] Chung Santos MD [address] [place] [id number] Test Results Allergies Active Allergy Reactions Criticality Noted Date Comments Prochlorperazine Other (Please comment) Medium 07/30/2022 Generalized weakness Morphine And Codeine Nausea/vomiting,Oth er (Please comment) Medium 07/30/2022 Room spinning as well documented as of this encounter (statuses as of 08/20/2024) Medications Atorvastatin Calcium 40 MG Oral Tablet [...] Nausea. dissolve on tongue. 20 Tablet 09/12/20 Active Additional Information Patient not taking.Reported on 04/19/2024 Omeprazole 40 MG Oral Capsule Delayed Release (PriLOSEC)Indicatio ns:Gastroesophageal reflux disease, unspecified whether esophagitis present TAKE ONE CAPSULE BY MOUTH EVERY MORNING ONE HOUR BEFORE THE FIRST MEAL OF THE DAY. 100 Capsule 3 4 10:06 AM EDT 01/03/20 24 025 Active documented as of this encounter (statuses as of 08/20/2024) Active Problems Problem Noted Date Diagnosed Date Food insecurity 07/05/2024 Overview: Per [facility] Protocol Migraine without status migrainosus, [...] as of this encounter (statuses as of 08/20/2024) Resolved Problems Problem Noted Date Diagnosed Date Resolved Date Bipolar disorder 07/30/2022 11/15/2022 Overview (11/15/2022): More recent.specified code listed on PL documented as of this encounter (statuses as of 08/20/2024) Immunizations Name Administration Dates Next Due Pneumococcal [...] encounter Miscellaneous Notes * Telephone Encounter - Natasha Sharma OSA - 05/21/2024 5:23 PM EDT Who is calling patient Provider patient is established with: Tom What is the concern or issue they are having: The pt contacted Neurology today to review results of a recent MRI. The pt is requesting a return call to review the results with the provider. Please contact the pt at your earliest convenience. Thank you. Phone number for nurse to call back: [phone] documented in this encounter Plan of Treatment Upcoming Encounters Date Type Department Care Team (Late st Contact Info) Description 09/01/2024 2:00 PM EST Office Visit [facility] [address] [place] [address] Edu Torre MD [address] [place] [place] [address] 09/03/2024 1:00 PM EST Telemedicine Psychiatry [facility] [address] [place] [address] Kimi Bro MD [address] [place] [address] 09/09/2024 1:30 PM EST Telemedicine Psychology [facility] [address] [place] [address] Telma Tyson, INSTRUMENT TECHNICIAN [address] [place] [address] 09/17/2024 2:00 PM EST Office Visit Audiology [facility] [address] [place] [address] Zonia Marvin Au.D. [address] [place] [address] 11/25/2024 3:00 PM EST Telemedicine Neurology [facility] [place] [address] [place] [address] Ekta Carter CRNP [address] [place] [address] 12/17/2024 1:00 PM EDT Hospital Encounter ENDO [facility], Endoscopy Room [facility] 132 [facility] [place] [phone] Kurtis Bone MD [address] [place] [address] 12/17/2024 1:00 PM EDT - 12/17/2024 1:30 PM EDT Surgery ENDO [facility], Endoscopy Room [facility] [address] [place] [address] Kurtis Bone MD [address] [place] [address] COLONOSCOPY FLEXIBLE PROXIMAL DIAGNOSTIC 02/02/2025 1:30 PM EDT Office Visit Urology, [facility] [address] [place] [address] Arturo Ewing MD [address] [place] [place] [address] Scheduled Procedures Name Priority Associated Diagnoses Date/Ti [...] D LEVEL ONCE IN A LIFETIME-USE SMARTSET# [id number] Completed 01/27/2023, 08/13/2022 Pneumococcal Vaccine: 65+ Years [...] filedocumented as of this encounter Care Teams Core Blower Operator Relationship Specialty Start Date End Date January, Edu Camacho [facility] [address] [facility] [id number] PCP - General Family Medicine 07/30/22 documented as of this encounter
--- OUTSIDE RECORDS SUMMARY | 2024-08-28 14:35 | External Medical Summary | Summary of Care ---
Author Name Unknown Organization [facility] Address [address] [place] [address] Phone [phone] Care Team Providers Care Health Care Liaison Name Role Phone Edu Torre MD Primary Care Provider Reason for Visit * Reason Onset Date Comments Test Results 05/10/2024 MRI Encounter Details Date Type Department Care Team (Late st Contact Info) Description 05/10/2024 Telephone [facility] [address] [place] [address] Edu Torre MD [address] [place] [address] Test Results (MRI) Allergies Active Allergy Reactions Criticality Noted Date [...] differently:70 mg Oral QWEEK,SATURDAYS, Reported on 04/19/2024 documented as of this encounter (statuses as of 08/09/2024) Active Problems Problem Noted Date Diagnosed Date Food insecurity 07/05/2024 Overview: Per [facility] Protocol Migraine without status migrainosus, [...] No 06/21/2024 Does the household have a [facility] source of income? (Household - for ages [...] encounter Miscellaneous Notes * Telephone Encounter - Leila Garcia LPN - 05/10/2024 12:15 PM EDT Acknowledged request in other TE from today. * Telephone Encounter - Jan Fernandez OSA - 05/10/2024 11:13 AM EDT Who is Requesting Test Results: Patient Primary Care Provider : Edu Torre MD Tests Results Requested : MRI Date of Test : 05/08/24 Location of Test[facility] Ordering Provider: Chung Santos MD Patient has been made aware that the [...] 08/20/2024 3:00 PM EST Office Visit Neurology [facility] [address] [place] [address] Ekta Carter CRNP [address] [place] [address] 09/01/2024 2:00 PM EST Office Visit [facility] [address] [place] [address] JanuaryEdu MD [address] [place] [address] 09/03/2024 1:00 PM EST Telemedicine Psychiatry [facility] [address] [place] [address] Kimi Bro MD [address] [place] [address] 09/09/2024 1:30 PM EST Telemedicine Psychology [facility] [address] [facility] [address] Telma Tyson, BASE LOADER [facility] [place] [address] 09/17/2024 2:00 PM EST Office Visit Audiology [facility] [address] [place] [address] Zonia Marvin Au.D. [address] [place] [address] 12/17/2024 1:00 PM EDT Hospital Encounter ENDO [facility], Endoscopy Room [facility] [address] [place] [phone] Kurtis Bone MD [address] [place] [address] 12/17/2024 1:00 PM EDT - 12/17/2024 1:30 PM EDT Surgery ENDO [facility], Endoscopy Room [facility] [address] [place] [phone] Kurtis Bone MD [address] [place] [address] COLONOSCOPY FLEXIBLE PROXIMAL DIAGNOSTIC 02/02/2025 1:30 PM EDT Office Visit Urology, [facility] [address] [place] [address] Arturo Ewing MD [address] [place] [address] Scheduled Procedures Name Priority Associated Diagnoses Date/Ti [...] D LEVEL ONCE IN A LIFETIME-USE SMARTSET# 03950 Completed 01/27/2023, 08/13/2022 Pneumococcal Vaccine: 65+ Years [...] filedocumented as of this encounter Care Teams Health Care Liaison Relationship Specialty Start Date End Date January, Edu Camacho MD [address] [place] [address] PCP - General Family Medicine 07/30/22 documented as of this encounter
--- OUTSIDE RECORDS SUMMARY | 2024-08-28 14:35 | External Medical Summary | Summary of Care ---
Author Name Unknown Organization [facility] Address [address] [place] [address] Phone [phone] Care Team Providers Care Practice Advisor Name Role Phone Andrés Nguyen MD Primary Care Provider [phone] Reason for Visit * Reason Comments Medication Refill Encounter Details Date Type Department Care Team (Late st Contact Info) Description 08/07/2024 Refill [facility] [address] [place] [address] Andrés Nguyen MD [address] [place] [address] Lumbar radiculopathy Allergies Active Allergy [...] 4 5:16 PM EST 08/06/20 24 Active HYDROcodone-Acetami nophen 5-325 MG Oral TabletIndications:L umbar radiculopathy Take 1 Tablet by mouth every 6 hours as needed for severe pain 120 Tablet 08/09/20 24 Active HYDROcodone-Acetami nophen 5-325 MG Oral TabletIndications:L umbar radiculopathy Take 1 Tablet by mouth every 6 hours as needed for severe pain 120 Tablet 4 12:02 PM EDT 07/05/20 24 024 Discontin ued(Refil l) documented as [...] Telephone Encounter - Andrés Nguyen MD - 08/09/2024 4:20 PM ESTSigned Prescriptions: Disp Refills HYDROcodone-Acetaminophen 5-325 MG Oral Ta*120 Ta*0 Sig: Take 1 Tablet by mouth every 6 hours as needed for severe painAuthorizing Provider: ANDRÉS NGUYEN--------- * Telephone Encounter - Nereyda Bernstein [facility] - 08/09/2024 3:43 PM ESTPending Prescriptions: Disp Refills HYDROcodone-Acetaminophen 5-325 MG Oral Ta*120 Ta*0 Sig: Take 1 Tablet by mouth every 6 hours as needed for severe pain * Telephone Encounter - Nereyda Bernstein [facility] - 08/09/2024 3:43 PM EST I have reviewed the patients controlled substance dispensing history in the Prescription Drug Monitoring Program in compliance with the [facility] regulations before prescribing a controlled substance. PDMP checked on 08/09/2024. Pending Prescriptions: Disp Refills HYDROcodone-Acetaminophen 5-325 MG Oral T*120 Ta*0 Sig: Take 1 Tablet by mouth every 6 hours as needed for severe pain Last Visit: 06/02/2024 (in office), 08/27/2022 (telemedicine) Next Visit: Visit date not found Date medication was last filled: 07/05/24 Date medication is due for refill: 08/03/24 Pharmacy: [facility] Is this request for a controlled substance? Yes and Urine Drug Screen was completed Toxicology results: Results for orders placed [...] on the medication information provided and from [facility]: Please note hydrocodone and hydrocodone metabolite, [...] available upon request. Please approve if appropriate. Thanks, Nereyda Bernstein, PharmD Clinical Pharmacist [facility] [phone] 08/09/2024 3:43 PM * Telephone Encounter - Alba Guido CPhT - 08/09/2024 3:17 PM EST Did you pend patient's preferred pharmacy and medication before forwarding?yes Pharmacy: [facility] Pending Prescriptions: Disp Refills HYDROcodone-Acetaminophen 5-325 MG Oral T*120 Ta*0 Sig: Take 1 Tablet by mouth every 6 hours as needed for severe pain Last Visit: 06/02/2024 (in office), 08/27/2022 (telemedicine) Next Visit: Visit date not found If no future appointments scheduled, and last appointment is greater than a year ago, please schedule patient for a follow-up appointment Last date the medication was ordered: 07/05/24 Is this request for a controlled substance?Yes, What was the last refill date 07/05/24 w/ quantity 120 and dosage q6 prn and Urine Drug Screen was completed Urine Drug Screen: Results for orders [...] on the medication information provided and from [facility]: Please note hydrocodone and hydrocodone metabolite, [...] 08/20/2024 3:00 PM EST Office Visit Neurology [facility] [address] [facility] [place] [address] Ekta Carter CRNP [address] [place] [address] 09/01/2024 2:00 PM EST Office Visit [facility] [address] [place] [address] JanuaryAndrés MD [address] [place] [address] 09/03/2024 1:00 PM EST Telemedicine Psychiatry [facility] [address] [place] [address] Kimi Bro MD [address] [place] [address] 09/09/2024 1:30 PM EST Telemedicine Psychology [facility] [address] [employer] [employer] [place] [phone] Telma Tyson, CAR DUMPER [address] [place] [address] 09/17/2024 2:00 PM EST Office Visit Audiology [facility] [address] [facility] [place] [address] Zonia Marvin Au.D. [address] [place] [address] 12/17/2024 1:00 PM EDT Hospital Encounter ENDO [facility], Endoscopy Room [facility] [address] [place] [phone] Kurtis Bone MD [address] [place] [address] 12/17/2024 1:00 PM EDT - 12/17/2024 1:30 PM EDT Surgery ENDO [facility], Endoscopy Room [facility] [address] [place] [phone] Kurtis Bone MD [address] [place] [address] COLONOSCOPY FLEXIBLE PROXIMAL DIAGNOSTIC 02/02/2025 1:30 PM EDT Office Visit Urology, [facility] [address] [place] [address] Arturo Ewing MD [address] [place] [address] Scheduled Procedures Name Priority Associated Diagnoses Date/Ti [...] D LEVEL ONCE IN A LIFETIME-USE SMARTSET# [id number] Completed 01/27/2023, 08/13/2022 Pneumococcal Vaccine: 65+ Years [...] contents documented in this encounter Care Teams Practice Advisor Relationship Specialty Start Date End Date January, Andrés Camacho MD [address] [place] [address] PCP - General Family Medicine 07/30/22 documented as of this encounter
--- OUTSIDE RECORDS SUMMARY | 2024-08-28 14:35 | External Medical Summary | Summary of Care ---
Author Name Unknown Organization [facility] Address [address] [place] [address] Phone [phone] Care Team Providers Care Ballpoint Pen Assembly Machine Operator Name Role Phone Andrés Nguyen MD Primary Care Provider [phone] Reason for Visit * Reason Onset Date Comments Medication Refill 08/04/2024 Encounter Details Date Type Department Care Team (Late st Contact Info) Description 08/04/2024 Refill [facility] [address] [place] [address] Andrés Nguyen MD [address] [place] [address] Opioid-induced constipation Allergies Active Allergy Reactions Criticality Noted Date Comments Prochlorperazine Other (Please comment) Medium 07/30/2022 Generalized weakness Morphine And Codeine Nausea/vomiting,Oth er (Please comment) Medium 07/30/2022 Room spinning as well documented as of this encounter (statuses as of 08/04/2024) Medications Atorvastatin Calcium 40 MG Oral Tablet [...] 4 10:16 AM EST 07/19/20 24 Active clonazePAM 0.5 MG Oral Tablet (KlonoPIN)Indicatio ns:Bipolar I disorder, most recent episode depressed (HCC) Take one tab in the morning and one tab in the evening as needed. Do not start before August 04, 2024. 45 Tablet 08/04/20 24 Active traZODone HCl 100 MG Oral Tablet (Desyrel)Indication s:EVANS (generalized anxiety disorder),Panic disorder Take 1.5 Tablets by mouth at bedtime. 135 Tablet 07/30/20 24 025 Active Lubiprostone 24 MCG Oral Capsule (Amitiza)Indication s:Opioid-induced constipation Take 1 Capsule by mouth 2 times a day with morning and evening meals. 60 Capsule 3 08/04/20 24 Active Lubiprostone 24 MCG Oral Capsule (Amitiza)Indication s:Opioid-induced constipation Take 1 Capsule by mouth 2 times a day with morning and evening meals. 60 Capsule 3 07/09/20 24 024 Discontin ued(Refil l) documented as of this encounter (statuses as of 08/04/2024) Active Problems Problem Noted Date Diagnosed Date [...] as of this encounter (statuses as of 08/04/2024) Resolved Problems Problem Noted Date Diagnosed Date Resolved Date Bipolar disorder 07/30/2022 11/15/2022 Overview (11/15/2022): More recent.specified code listed on PL documented as of this encounter (statuses as of 08/04/2024) Immunizations Name Administration Dates Next Due Pneumococcal [...] Telephone Encounter - Andrés Nguyen MD - 08/04/2024 6:29 PM ESTSigned Prescriptions: Disp Refills Lubiprostone 24 MCG Oral Capsule (Amitiza) 60 Cap*3 Sig: Take 1 Capsule by mouth 2 times a day with morning and evening meals. Authorizing Provider: ANDRÉS NGUYEN * Telephone Encounter - Phuc Portillo OSA - 08/04/2024 11:40 AM EST Did you pend patient's preferred pharmacy and medication before forwarding?yes Pharmacy: [id number] [address] [facility] Pending Prescriptions: Disp Refills Lubiprostone 24 MCG Oral Capsule (Amitiza)60 Cap*3 Sig: Take 1 Capsule by mouth 2 times a day with morning and evening meals. Last Visit: 06/02/2024 (in office), 08/27/2022 (telemedicine) Next Visit: Visit date not found If no future appointments scheduled, and last appointment is greater than a year ago, please schedule patient for a follow-up appointment Last date the medication was ordered: 07/09/24 Is this request for a controlled substance?No [...] on the medication information provided and from [facility]: Please note hydrocodone and hydrocodone metabolite, dihydrocodeine, [...] 08/20/2024 3:00 PM EST Office Visit Neurology [facility] [address] [place] [address] Ekta Carter CRNP [address] [place] [address] 09/01/2024 2:00 PM EST Office Visit [facility] [address] [place] [address] JanuaryAndrés MD [address] [place], [place] [address] 09/03/2024 1:00 PM EST Telemedicine Psychiatry [facility] 9 [place] [address] Kimi Bro MD [address] [place] [address] 09/09/2024 1:30 PM EST Telemedicine Psychology [facility] [address] Telma Tyson LCSW [facility] [address] 09/17/2024 2:00 PM EST Office Visit Audiology [facility] [address] [place] [address] Zonia Marvin Au.D. [address] [place] [address] 12/17/2024 1:00 PM EDT Hospital Encounter ENDO [facility], Endoscopy Room [facility] [address] [place] [phone] Kurtis Bone MD [address] [place] [address] 12/17/2024 1:00 PM EDT - 12/17/2024 1:30 PM EDT Surgery ENDO [facility], Endoscopy Room [facility] [address] [place] [phone] Kurtis Bone MD [address] [place] [address] COLONOSCOPY FLEXIBLE PROXIMAL DIAGNOSTIC 02/02/2025 1:30 PM EDT Office Visit Urology, [facility] [address] [place] [address] Arturo Ewing MD [address] [place] [address] Scheduled Procedures Name Priority Associated Diagnoses Date/Ti [...] D LEVEL ONCE IN A LIFETIME-USE SMARTSET# [id number] Completed 01/27/2023, 08/13/2022 Pneumococcal Vaccine: 65+ Years [...] as of this encounter Visit Diagnoses Diagnosis Opioid-induced constipation Adenomatous polyp of colon, unspecified part of colon Fecal occult blood test positive Nonspecific abnormal finding in stool contents documented in this encounter Care Teams Ballpoint Pen Assembly Machine Operator Relationship Specialty Start Date End Date January, Andrés Camacho MD [address] [place] [address] PCP - General Family Medicine 07/30/22 documented as of this encounter
--- OUTSIDE RECORDS SUMMARY | 2024-08-28 14:35 | External Medical Summary | Summary of Care ---
Author Name Unknown Organization [facility] Address [address] [place] [address] Phone [phone] Care Team Providers Care Human Resources Administrator Name Role Phone Edu Torre MD Primary Care Provider [phone] Reason for Visit * Reason Onset Date Comments Med Request 08/05/2024 Encounter Details Date Type Department Care Team (Late st Contact Info) Description 08/05/2024 Telephone Psychiatry [facility] [place] [address] [place] [address] Kimi Bro MD [address] [place] [address] Med Request Allergies Active Allergy Reactions Criticality Noted Date Comments Prochlorperazine Other (Please comment) Medium 07/30/2022 Generalized weakness Morphine And Codeine Nausea/vomiting,Oth er (Please comment) Medium 07/30/2022 Room spinning as well documented as of this encounter (statuses as of 08/06/2024) Medications Atorvastatin Calcium 40 MG Oral Tablet [...] mouth every night at bedtime. 90 Tablet 11/06/202 4 10:16 AM EST 07/19/20 24 Active [...] one tab in the evening as needed. 45 Tablet 08/06/20 24 Active clonazePAM 0.5 MG Oral Tablet (KlonoPIN)Indicatio ns:Bipolar I disorder, most recent episode depressed (HCC) Take one tab in the morning and one tab in the evening as needed. Do not start before August 04, 2024. 45 Tablet 08/04/20 24 024 Discontin ued(Refil l) documented as of this encounter (statuses as of 08/06/2024) Active Problems Problem Noted Date Diagnosed Date [...] as of this encounter (statuses as of 08/06/2024) Resolved Problems Problem Noted Date Diagnosed Date Resolved Date Bipolar disorder 07/30/2022 11/15/2022 Overview (11/15/2022): More recent.specified code listed on PL documented as of this encounter (statuses as of 08/06/2024) Immunizations Name Administration Dates Next Due Pneumococcal [...] encounter Miscellaneous Notes * Telephone Encounter - Anais Hugo LPN - 08/06/2024 8:38 AM EST Ordered 08/04/24 * Telephone Encounter - Mikaela Leger PHARM Tech - 08/05/2024 3:31 PM EST Patient is up to date for office visits. Pending Prescriptions: Disp Refills clonazePAM 0.5 MG Oral Tablet (KlonoPIN) 45 Tab*0 Sig: Take one tab in the morning and one tab in the evening as needed. Last Visit: Visit date not found (in office), 07/30/2024 (telemedicine) Next Visit: 09/03/2024 If no future appointments scheduled, and last appointment is greater than a year ago, please schedule patient for a follow-up appointment Last date the medication was ordered: 08/04/24 Pharmacy: [facility] Is this request for a controlled substance?Yes, and Urine Drug Screen was completed Urine [...] on the medication information provided and from [facility]: Please note hydrocodone and hydrocodone metabolite, [...] 08/20/2024 3:00 PM EST Office Visit Neurology [facility] [address] [place] [address] Ekta Carter CRNP [address] [place], [place] [address] 09/01/2024 2:00 PM EST Office Visit [facility] [address] [place], [place] [phone] JanuaryEdu MD [address] [place] [address] 09/03/2024 1:00 PM EST Telemedicine Psychiatry [place] [place] [address] [place] [address] Kimi Bro MD [address] [place] [address] 09/09/2024 1:30 PM EST Telemedicine Psychology [facility] [address] [facility] [place] [address] Telma Tyson, RESTORATION ECOLOGIST [address] [place] [address] 09/17/2024 2:00 PM EST Office Visit Audiology [facility] [address] [facility] [place] [address] Zonia Marvin Au.D. [address] [place] [address] 12/17/2024 1:00 PM EDT Hospital Encounter [facility], Endoscopy Room [facility] [address] [place] [phone] Kurtis Bone MD [address] [place] [address] 12/17/2024 1:00 PM EDT - 12/17/2024 1:30 PM EDT Surgery [facility], Endoscopy Room [facility] [address] [place] [phone] Kurtis Bone MD [address] [place] [address] COLONOSCOPY FLEXIBLE PROXIMAL DIAGNOSTIC 02/02/2025 1:30 PM EDT Office Visit Urology, [facility] [address] [place] [address] Arturo Ewing MD [address] [facility] [place] [address] Scheduled Procedures Name Priority Associated Diagnoses Date/Ti [...] D LEVEL ONCE IN A LIFETIME-USE SMARTSET# [id number] Completed 01/27/2023, 08/13/2022 Pneumococcal Vaccine: 65+ Years [...] contents documented in this encounter Care Teams Human Resources Administrator Relationship Specialty Start Date End Date January, Edu Camacho MD [address] [place] [address] PCP - General Family Medicine 07/30/22 documented as of this encounter
--- OUTSIDE RECORDS SUMMARY | 2024-08-28 14:36 | External Medical Summary | Summary of Care ---
Author Name Unknown Organization [facility] Address [address] [place] [address] Phone [phone] Care Team Providers Care Aerial Gunner Superintendent Name Role Phone Edu Torre MD Primary Care Provider [phone] Reason for Visit * Reason Onset Date Comments Advice 07/12/2024 Encounter Details Date Type Department Care Team (Late st Contact Info) Description 07/12/2024 Telephone Psychiatry, [place] [address] [place] [address] Koki Kim MD [address], [place] [id number] Advice Allergies Active Allergy Reactions Criticality Noted Date Comments Prochlorperazine Other (Please comment) Medium 07/30/2022 Generalized weakness Morphine And Codeine Nausea/vomiting,Oth er (Please comment) Medium 07/30/2022 Room spinning as well documented as of this encounter (statuses as of 07/12/2024) Medications Medication Sig Dispensed Refills Start Date [...] With food.. 90 Capsule 1 09/05/2023 Active Additional Information Patient not taking.Reported on 04/19/2024 Ondansetron 4 MG Oral Tablet Disintegrating (Zofran)Indications:N ausea Place 1 Tablet on tongue every 8 hours as needed for Nausea. dissolve on tongue. 20 Tablet 09/12/2023 Active Additional Information Patient not taking.Reported on 04/19/2024 Omeprazole 40 MG Oral Capsule Delayed Release (PriLOSEC)Indications :Gastroesophageal reflux disease, unspecified whether esophagitis present TAKE ONE CAPSULE BY MOUTH EVERY MORNING ONE HOUR BEFORE THE FIRST MEAL OF THE DAY. 100 Capsule 3 01/03/2024 5 Active traZODone HCl 100 MG Oral Tablet (Desyrel)Indications: EVANS (generalized anxiety disorder),Panic disorder Take 2 Tablets by mouth at bedtime. 180 Tablet 1 02/13/2024 Active Alendronate Sodium 70 MG Oral Tablet (Fosamax)Indications: Age-related osteoporosis with current pathological fracture, initial encounter Take one Tablet by mouth once a week. with 8 oz. water 30 minutes before first meal of the day. Remain upright for 30 min after taking tablet. 12 Tablet 1 03/05/2024 Active Additional Information Patient taking differently:70 mg Oral QWEEK,SATURDAYS, Reported on 04/19/2024 Topiramate 50 MG Oral Tablet (topAMAX) Take 1 Tablet by mouth in the morning. 90 Tablet 3 06/01/2024 Active Mirabegron ER 50 MG Oral Tablet Extended Release 24 Hour (Myrbetriq) Take 1 Tablet by mouth in the morning. 90 Tablet 3 06/01/2024 Active Sennosides-Docusate Sodium 8.6-50 MG Oral Tablet (Senokot-S)Indication s:Drug induced constipation Take 1 Tablet by mouth in the morning. 90 Tablet 3 06/02/2024 Active Folic Acid 1 MG Oral Tablet Take 1 Tablet by mouth in the morning. 90 Tablet 3 06/04/2024 Active ARIPiprazole 15 MG Oral Tablet (Abilify)Indications: Bipolar I disorder, most recent episode depressed (HCC) Take 1 Tablet by mouth every night at bedtime. 30 Tablet 06/25/2024 Active HYDROcodone-Acetamino phen 5-325 MG Oral TabletIndications:Lum bar radiculopathy Take 1 Tablet by mouth every 6 hours as needed for severe pain 120 Tablet 07/05/2024 Active clonazePAM 0.5 MG Oral Tablet (KlonoPIN)Indications :Bipolar I disorder, most recent episode depressed (HCC) Take 1 Tablet by mouth in the morning and 1 Tablet in the evening. 60 Tablet 07/06/2024 Active Lubiprostone 24 MCG Oral Capsule (Amitiza)Indications: Opioid-induced constipation Take 1 Capsule by mouth 2 times a day with morning and evening meals. 60 Capsule 3 07/09/2024 Active DULoxetine HCl 20 MG Oral Capsule Delayed Release Particles (Cymbalta)Indications :EVANS (generalized anxiety disorder),Bipolar I disorder, most recent episode depressed (HCC),Panic disorder Take 1 Capsule by mouth at bedtime. Do not cut, crush or chew 15 Capsule 07/11/2024 Active DULoxetine HCl 30 MG Oral Capsule Delayed Release Particles (Cymbalta)Indications :EVANS (generalized anxiety disorder),Bipolar I disorder, most recent episode depressed (HCC),Panic disorder Take 1 Capsule by mouth in the morning and 1 Capsule before bedtime. Do not cut, crush or chew. 30 Capsule 07/11/2024 Active DULoxetine HCl 30 MG Oral Capsule Delayed Release Particles (Cymbalta)Indications :EVANS (generalized anxiety disorder),Panic disorder Take 1 Capsule by mouth in the morning and 1 Capsule before bedtime. 180 Capsule 3 07/11/2024 Active DULoxetine HCl 20 MG Oral Capsule Delayed Release Particles (Cymbalta)Indications :EVANS (generalized anxiety disorder),Bipolar I disorder, most recent episode depressed (HCC) Take 1 Capsule by mouth every night at bedtime. With 30 mg capsule 90 Capsule 3 07/11/2024 Active documented as of this encounter (statuses as of 07/12/2024) Active Problems Problem Noted Date Diagnosed Date [...] as of this encounter (statuses as of 07/12/2024) Resolved Problems Problem Noted Date Diagnosed Date Resolved Date Bipolar disorder 07/30/2022 11/15/2022 Overview: More recent.specified code listed on PL documented as of this encounter (statuses as of 07/12/2024) Immunizations Name Administration Dates Next Due Pneumococcal [...] Answer Date Recorded PHQ Adult Total Score 20 06/10/2024 Hunger Vital Sign Answer Date Recorded Within [...] No 06/21/2024 Does the household have a presbyterian hospitallar source of income? (Household - for ages [...] ages 0-17 years) Not on file 06/21/2024 Sex and Gender Information Value Date Recorded Sex Assigned at Female 06/23/2023 11:02 AM EDT Gender Identity Transgender Female 06/23/2023 11 :02 AM EDT Sexual Orientation Straight 06/23/2023 11 :02 AM EDT Job Start Date Occupation Industry Not on file Not on file Not on file documented as of this encounter Miscellaneous Notes * Telephone Encounter - Graciela Narayanan, heater planer operator - 07/12/2024 1:16 PM EDT Patient calling stating that she was supposed to receive her Clonazepam 0.5 mg. Reached out to [facility] [place] they state it was delivered on 07/10/2024. Patient states that she never received it. [facility] [place] to call the post office in [place]. Advised patient of this Thank you, Graciela Narayanan [employer] Upholsterer [employer] [facility] 07/12/2024,1:23 PM documented in this encounter Plan of Treatment Upcoming Encounters Date Type Department Care Team (Late st Contact Info) Description 07/19/2024 2:30 PM EDT Telemedicine Psychiatry [facility] [address] [place] [address] Kimi Bro MD [address] [place] [address] 07/21/2024 3:00 PM EDT Office Visit Urology, [facility] [address] [place] [address] Arturo Ewing MD [address] [place], [place] [id number] 08/04/2024 3:00 PM EST Telemedicine Psychology [facility] [address] [place] [address] Telma Tyson, [facility] [address] [place] [address] 08/20/2024 3:00 PM EST Office Visit Neurology [facility] [address] [facility] [place] [address] Ekta Carter, [place] [address] [place] [address] 09/01/2024 2:00 PM EST Office Visit [facility] [address] [place] [phone] Edu Torre MD [address] [place] [address] 09/17/2024 2:00 PM EST Office Visit Audiology [facility] [address] [place], [place] [address] Zonia Marvin Au.D. [address] [place] [address] 12/17/2024 1:00 PM EDT Hospital Encounter [facility], Endoscopy Room [facility] [address] [place] [phone] Kurtis Bone MD [address] [place] [address] 12/17/2024 1:00 PM EDT - 12/17/2024 1:30 PM EDT Surgery ENDO [facility], Endoscopy Room [facility] [address] [place] [phone] Kurtis Bone MD [address] [place] [address] COLONOSCOPY FLEXIBLE PROXIMAL DIAGNOSTIC Scheduled Procedures Name [...] 05/26/20 24, 05/26/2024, 08/29/2022, Additional history exists Depression Monitoring 06/10/2025 06/10/2024 Lipid Panel 08/13/2027 08/13/2022 VITAMIN D LEVEL ONCE IN A LIFETIME-USE SMARTSET# 52973 Completed 01/27/2023, 08/13/2022 Pneumococcal Vaccine: 65+ Years [...] filedocumented as of this encounter Care Teams Aerial Gunner Superintendent Relationship Specialty Start Date End Date January, Edu Camacho MD [address] [place] [address] PCP - General Family Medicine 07/30/22 documented as of this encounter
--- OUTSIDE RECORDS SUMMARY | 2024-08-28 14:36 | External Medical Summary | Summary of Care ---
Author Name Unknown Organization [facility] Address [address] [place] [address] Phone [phone] Care Team Providers Care Improvement Director Name Role Phone Edu Torre MD Primary Care Provider [phone] Reason for Visit * Reason Onset Date Comments pre-op exam 07/21/2024 Encounter Details Date Type Department Care Team (Late st Contact Info) Description 07/21/2024 Telephone Urology, [facility] [address] [facility] [place] [address] Arturo Ewing MD [address] [place] [address] pre-op exam Allergies Active Allergy Reactions Criticality Noted Date Comments Prochlorperazine Other (Please comment) Medium 07/30/2022 Generalized weakness Morphine And Codeine Nausea/vomiting,Oth er (Please comment) Medium 07/30/2022 Room spinning as well documented as of this encounter (statuses as of 07/21/2024) Medications Medication Sig Dispensed Refills Start Date [...] traZODone HCl 100 MG Oral Tablet (Desyrel)Indications: EVNAS (generalized anxiety disorder),Panic disorder Take 2 Tablets [...] the morning. 90 Tablet 3 06/04/2024 Active HYDROcodone-Acetamino phen 5-325 MG Oral TabletIndications:Lum [...] mg capsule 90 Capsule 3 07/11/2024 Active ARIPiprazole 15 MG Oral Tablet (Abilify)Indications: Bipolar I disorder, most recent episode depressed (HCC) Take 1 Tablet by mouth every night at bedtime. 90 Tablet 07/19/2024 Active documented as of this encounter (statuses as of 07/21/2024) Active Problems Problem Noted Date Diagnosed Date [...] as of this encounter (statuses as of 07/21/2024) Resolved Problems Problem Noted Date Diagnosed Date Resolved Date Bipolar disorder 07/30/2022 11/15/2022 Overview: More recent.specified code listed on PL documented as of this encounter (statuses as of 07/21/2024) Immunizations Name Administration Dates Next Due Pneumococcal [...] encounter Miscellaneous Notes * Telephone Encounter - Marina Crooks OSA - 07/21/2024 1:10 PM EDT I contacted patient and asked her how is was feeling and she said she was feeling good. I scheduledher for February 02. Pt asked to be on cancellation lit. Placed on wait list. * Telephone Encounter - Telma Gilman LPN - 07/21/2024 12:56 PM EDT Appears that patient was scheduled for litho/stent in Sep, which she cancelled. She called (per a separate encounter) and rescheduled her H&P to December 2023, and that was cancelled as well. The next appointment should be with Dr Ewing as a return to discuss surgery. Can be next availableunless patient is having acute symptoms. * Telephone Encounter - Rona Landrum OSA - 07/21/2024 12:48 PM EDT Pt needs to reschedule appt today for H&P due to illness. Pt states as far as she knows her surgery is not until September. I do not see this on the schedule yet. Please advise on a new appt for H&P within a good time frame before surgery and return pt's call documented in this encounter Plan of Treatment Upcoming Encounters Date Type Department Care Team (Late st Contact Info) Description 07/30/2024 2:00 PM EST Telemedicine Psychiatry [facility] [place] [address] [place] [phone] Kimi Bro MD [address] [place] [address] 08/04/2024 3:00 PM EST Telemedicine Psychology [facility] [address] [facility] [place] [address] Telma Tyson, RESEARCH SCHOLAR [address] [facility] [place] [address] 08/20/2024 3:00 PM EST Office Visit Neurology [facility] [address] [facility], [place] [address] Ekta Carter, [place] [address] [place] [address] 09/01/2024 2:00 PM EST Office Visit [facility] [address] [place] [facility] [place] [address] Edu Torre MD [address] [place] [facility] [place] [address] 09/17/2024 2:00 PM EST Office Visit Audiology [facility] [address] [place] [address] Zonia Marvin Au.D. [address] [place] [address] 12/17/2024 1:00 PM EDT Hospital Encounter ENDO [facility], Endoscopy Room [facility] [address] [place] [phone] Kurtis Bone MD [address] [place] [address] 12/17/2024 1:00 PM EDT - 12/17/2024 1:30 PM EDT Surgery [facility]O [facility], Endoscopy Room [facility] [address] [place] [phone] Kurtis Bone MD [address] [place] [address] COLONOSCOPY FLEXIBLE PROXIMAL DIAGNOSTIC 02/02/2025 1:30 PM EDT Office Visit Urology, [facility] [address] [place] [address] Arturo Ewing MD [address] [place] [address] Scheduled Procedures Name Priority Associated Diagnoses Date/Ti [...] D LEVEL ONCE IN A LIFETIME-USE SMARTSET# [id number] Completed 01/27/2023, 08/13/2022 Pneumococcal Vaccine: 65+ Years [...] filedocumented as of this encounter Care Teams Improvement Director Relationship Specialty Start Date End Date January, Edu Camacho MD [address] [place] [address] PCP - General Family Medicine 07/30/22 documented as of this encounter
--- OUTSIDE RECORDS SUMMARY | 2024-08-28 14:36 | External Medical Summary | Summary of Care ---
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 60 Capsule 3 07/09/20 24 Active DULoxetine HCl 20 MG Oral [...] bedtime. 135 Tablet 07/30/20 24 025 Active documented as of this [...] AM EDT documented as of this encounter Progress Notes * Telma Tyson, TELEVISION REPAIRER - 08/04/2024 3:04 PM EST Patient location: HOME. I was in a hospital or clinic location. After connecting through [employer],patient was verified with two unique identifiers. Patient (or authorized legal counter sales representative) was then informed that this was a Telemedicine visit and being conducted confidentially over secure lines. Methods to assure confidentiality were taken. Patient acknowledged consent and understanding of p rivacy and security of the Telemedicine visit. The patient agreed to participate. PRIMARY CARE BEHAVIORAL HEALTH FOLLOW-UP 08/04/2024 Length of visit: 50 minutes (3:08 pm - 3:59 pm) Type of Visit: family Treatment session number: 2 AGENDA & ACTION PLAN: -Check in-Lulu reported feeling shaky and anxious. When asking her what was going well she reported she has spent two days downstairs-(not in her bedroom) with her daughter watching TV and playing agame. Therapist provided support. -Today therapist utilized open ended, closed ended, clarifying questions and empathetic and active listening to promote expression of thoughts and feelings about her situation and how she is feeling.Her daughter Danni was present for the visit. She reports her Mom has been spending most of her time in her bedroom. However since seeing the Psychiatrist and having the Klonopin decreased she is more awake and having more energy and has come down the stairs the last couple of days. Daughter identifying difference of her Mom's activity level from when in [place] until now. Lulu sharing she is content to stay inside and watch TV (this calms me). Therapist spoke with daughter and obtained moreinformation about what her life was life piror to coming to live with daughter. She identified her Mom's life as very chaotic with great responsibility with limited supports. Therapist explored more with Lulu about what was most helpful to her now. She shared the comfort of being in a stable environment and with people that cared for her was comforting. We talked about considering this time as a healing time. Therapist did talk to Lulu about use of thinking differently about her shakiness using re-framing and shifting her attention to a task so as not to dwell or ruminate. She agreed to trythis approach. -Therapist also introduced a mental imagery exercise and we practiced together in session with positive feedback provided by Daughter and Lulu. Optional: Interventions addressed in treatment thus far: Treatment/Intervention Visit 08/04/2024 1 2 3 4 5 6 Behavioral activation Behavior modification for poor health behaviors (e.g., smoking cessation) Breathing re-training mindfulness training x Cognitive restructuring/diffusion x Exercise/physical activity Problem-solving Psychoeducation x Exposure and/or response prevention Supportive therapy x Sleep hygiene Stimulus control Time in bed restriction Conduct WHO (CM,BRODERICK,MTM) MENTAL STATUS EXAMINATION: No changes to mental status since last visit. No change in suicide or homicide risk status since last visit. Level of suicide completion risk:Moderate Risk (ideation with method without plan, intent, or behavior in past month; suicidal behavior more than 3 months ago; or multiple risk factors and few protective factors; concerns are chronic, not acute): Developed safety plan with the patient. Major Depressive disorder, Generalized Anxiety Disorder, History of Bipolar disorder, Memory Deficit. RETURN 2 WEEKS for individual cognitive behavioral therapy. Telma Tyson LCSW Primary Care Behavioral Health Psychology [facility] [address] [facility] [place] [address] documented in this encounter Plan of Treatment Upcoming Encounters Date Type Department Care Team (Late st Contact Info) Description 08/20/2024 3:00 PM EST Office Visit Neurology [facility] [address] [place] [address] Ekta Carter CRNP [address] [place] [address] 09/01/2024 2:00 PM EST Office Visit [facility] [address], [place] [address] JanuaryEdu MD [address] [place] [facility] [place] [address] 09/03/2024 1:00 PM EST Telemedicine Psychiatry [place] [address] [place] [address] Kimi Bro MD [address] [place] [facility] [place] [address] 09/09/2024 1:30 PM EST Telemedicine Psychology [facility] [address] [place] [address] Telma Tyson, [facility] [address] [place] [address] 09/17/2024 2:00 PM EST Office Visit Audiology [facility] [address] [place] [address] Zonia Marvin AuShari [address] [place] [address] 12/17/2024 1:00 PM EDT Hospital Encounter [facility], Endoscopy Room [facility] [address] [place] [phone] Kurtis Bone MD [address] [place] [address] 12/17/2024 1:00 PM EDT - 12/17/2024 1:30 PM EDT Surgery [facility], Endoscopy Room [facility] [address] [place] [phone] Kurtis Bone MD [address] [place] [address] COLONOSCOPY FLEXIBLE PROXIMAL DIAGNOSTIC 02/02/2025 1:30 PM EDT Office Visit Urology, [facility] [address] [place] [address] Arturo Ewing MD [address] [place] [address] Scheduled Procedures Name Priority Associated Diagnoses Date/Ti [...] D LEVEL ONCE IN A LIFETIME-USE SMARTSET# [id number] Completed 01/27/2023, 08/13/2022 Pneumococcal Vaccine: 65+ Years [...] as of this encounter Visit Diagnoses Diagnosis MDD (major depressive disorder), recurrent severe, 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)- Primary Major depressive disorder, recurrent episode, severe, without mention of psychotic behavior EVANS (generalized anxiety disorder) Generalized anxiety disorder History of bipolar disorder Personal history of affective disorder Memory deficit Memory loss Adenomatous polyp of colon, unspecified part of colon Fecal occult blood test positive Nonspecific abnormal finding in stool contents documented in this encounter Care Teams Kitchen Steward Relationship Specialty Start Date End Date January, Edu Camacho MD [address] [place] [address] PCP - General Family Medicine 07/30/22 documented as of this encounter
--- OUTSIDE RECORDS SUMMARY | 2024-08-28 14:36 | External Medical Summary | Summary of Care ---
Author Name Unknown Organization [facility] Address [address] [place] [address] Phone [phone] Care Team Providers Care Head Swamper Name Role Phone Edu Torre MD Primary Care Provider [phone] Reason for Visit * Reason Comments Medication Refill Encounter Details Date Type Department Care Team (Late st Contact Info) Description 07/05/2024 Refill Psychiatry Nhi Arteaga [address] [place] [address] Mino Hinojosa MD [address] [place] [address] Bipolar I disorder, most recent episode depressed (HCC) Allergies Active Allergy Reactions Criticality Noted Date Comments Prochlorperazine Other (Please comment) Medium 07/30/2022 Generalized weakness Morphine And Codeine Nausea/vomiting,Oth er (Please comment) Medium 07/30/2022 Room spinning as well documented as of this encounter (statuses as of 07/07/2024) Medications Medication Sig Dispensed Refills Start Date [...] MOUTH EVERY EVENING 100 Tablet 2 3 09/18/20 24 Active Nitrofurantoin Monohyd Macro 100 MG [...] 100 Capsule 3 4 01/03/20 25 Active traZODone HCl 100 MG Oral Tablet (Desyrel)Indications :EVANS (generalized anxiety disorder),Panic disorder Take 2 Tablets by mouth at bedtime. 180 Tablet 1 4 Active Alendronate Sodium 70 MG Oral [...] in the morning. 90 Tablet 3 4 Active Mirabegron ER 50 MG Oral Tablet Extended Release 24 Hour (Myrbetriq) Take 1 Tablet by mouth in the morning. 90 Tablet 3 4 Active Sennosides-Docusate Sodium 8.6-50 MG Oral Tablet (Senokot-S)Indicatio ns:Drug induced constipation Take 1 Tablet by mouth in the morning. 90 Tablet 3 4 Active Folic Acid 1 MG Oral Tablet Take 1 Tablet by mouth in the morning. 90 Tablet 3 4 Active DULoxetine HCl 20 MG Oral Capsule Delayed Release Particles (Cymbalta)Indication s:EVANS (generalized anxiety disorder),Bipolar I disorder, most recent episode depressed (HCC) Take 1 Capsule by mouth every night at bedtime. With 30 mg capsule 90 Capsule 4 Active DULoxetine HCl 30 MG Oral Capsule Delayed Release Particles (Cymbalta)Indication s:EVANS (generalized anxiety disorder),Panic disorder Take 1 Capsule by mouth in the morning and 1 Capsule before bedtime. 180 Capsule 4 Active ARIPiprazole 15 MG Oral Tablet (Abilify)Indications :Bipolar I disorder, most recent episode depressed (HCC) Take 1 Tablet by mouth every night at bedtime. 30 Tablet 4 Active HYDROcodone-Acetamin ophen 5-325 MG [...] Tablet in the evening. 60 Tablet 4 07/05/20 24 Discontinu ed(Refill) documented as of this encounter (statuses as of 07/07/2024) Active Problems Problem Noted Date Diagnosed Date Migraine without status migrainosus, not intract able [...] as of this encounter (statuses as of 07/07/2024) Resolved Problems Problem Noted Date Diagnosed Date Resolved Date Bipolar disorder 07/30/2022 11/15/2022 Overview: More recent.specified code listed on PL documented as of this encounter (statuses as of 07/07/2024) Immunizations Name Administration Dates Next Due Pneumococcal [...] 06/21/2024 Does the household have a re lar source of income? (Household - for ages [...] encounter Miscellaneous Notes * Telephone Encounter - Lamberto Escalante wire saw operator - 07/07/2024 3:07 PM EDT Patient calling to check on status of refill request and stated she has been out of medication for four days. Reached out to mail order via teams who will overnight prescription - pt should receive Friday. Informed caller who verbalized understanding. Thank you, Lamberto Escalante Neighborhood Worker I [facility] 07/07/2024,3:07 PM * Telephone Encounter - Koki Don MD - 07/06/2024 10:19 AM EDT Signed Prescriptions: Disp Refills clonazePAM 0.5 MG Oral Tablet (KlonoPIN) 60 Tab*0 Sig: Take 1 Tablet by mouth in the morning and 1 Tablet in the evening.Authorizing Provider: KOKI DON documented in this encounter Plan of Treatment Upcoming Encounters Date Type Department Care Team (Late st Contact Info) Description 07/09/2024 2:30 PM EDT Hospital Encounter ENDO [facility], Endoscopy Room [facility] [address] [place] [address] Kurtis Bone MD [address] [place] [address] 07/09/2024 2:30 PM EDT - 07/09/2024 3:00 PM EDT Surgery ENDO [facility], Endoscopy Room [facility] [address] [place] [address] Kurtis Bone MD [address] [place] [address] COLONOSCOPY FLEXIBLE PROXIMAL DIAGNOSTIC 07/19/2024 2:30 PM EDT Telemedicine Psychiatry [facility] [address] [place] [address] Kimi Bro MD [address] [place] [address] 07/21/2024 3:00 PM EDT Office Visit Urology, [facility] [address] [place] [address] Arturo Ewing MD [address] [place] [id number] 08/04/2024 3:00 PM EST Telemedicine Psychology [facility] [address] [place] [address] Telma Tyson, RUNNER WORKER [address] [place] [address] 08/20/2024 3:00 PM EST Office Visit Neurology [facility] [address] [place] [address] Ekta Carter CRNP [address] [place] [address] 09/01/2024 2:00 PM EST Office Visit Family [facility] [address] [place] [address] JanuaryEdu MD [address] [place] [address] 09/17/2024 2:00 PM EST Office Visit Audiology [facility] [address] [place] [address] Zonia Marvin Au.D. [address] [place] [address] Scheduled Procedures Name Priority Associated Diagnoses Date/Ti me COLONOSCOPY FLEXIBLE PROXIMAL DIAGNOSTIC Recall Adenomatous polyp of colon, unspecified part of colon Fecal occult blood test positive 07/09/2024 2:30 PM EDT Health Maintenance Due Date Last [...] D LEVEL ONCE IN A LIFETIME-USE SMARTSET# 13903 Completed 01/27/2023, 08/13/2022 Pneumococcal Vaccine: 65+ Years [...] contents documented in this encounter Care Teams Head Swamper Relationship Specialty Start Date End Date January, Edu Camacho MD [address] [place] [address] PCP - General Family Medicine 07/30/22 documented as of this encounter
--- OUTSIDE RECORDS SUMMARY | 2024-08-28 14:36 | External Medical Summary | Summary of Care ---
Author Name Unknown Organization [facility] Address [address] [place] [address] Phone [phone] Care Team Providers Care Microsoft Dynamics Developer Name Role Phone Edu Torre MD Primary Care Provider [phone] Reason for Visit * Reason Onset Date Comments medication change 07/09/2024 Encounter Details Date Type Department Care Team (Late st Contact Info) Description 07/09/2024 Telephone [facility] [address] [place] [address] Edu Torre MD [address] [place] [address] medication change Allergies Active Allergy Reactions Criticality Noted Date Comments Prochlorperazine Other (Please comment) Medium 07/30/2022 Generalized weakness Morphine And Codeine Nausea/vomiting,Oth er (Please comment) Medium 07/30/2022 Room spinning as well documented as of this encounter (statuses as of 07/09/2024) Medications Medication Sig Dispensed Refills Start Date [...] the morning. 90 Tablet 3 06/04/2024 Active DULoxetine HCl 20 MG Oral Capsule Delayed Release Particles (Cymbalta)Indications :EVANS (generalized anxiety disorder),Bipolar I disorder, most recent episode depressed (HCC) Take 1 Capsule by mouth every night at bedtime. With 30 mg capsule 90 Capsule 06/21/2024 Active DULoxetine HCl 30 MG Oral Capsule Delayed Release Particles (Cymbalta)Indications :EVANS (generalized anxiety disorder),Panic disorder Take 1 Capsule by mouth in the morning and 1 Capsule before bedtime. 180 Capsule 06/21/2024 Active ARIPiprazole 15 MG Oral Tablet (Abilify)Indications: [...] evening meals. 60 Capsule 3 07/09/2024 Active documented as of this encounter (statuses as of 07/09/2024) Active Problems Problem Noted Date Diagnosed Date [...] as of this encounter (statuses as of 07/09/2024) Resolved Problems Problem Noted Date Diagnosed Date Resolved Date Bipolar disorder 07/30/2022 11/15/2022 Overview: More recent.specified code listed on PL documented as of this encounter (statuses as of 07/09/2024) Immunizations Name Administration Dates Next Due Pneumococcal [...] encounter Miscellaneous Notes * Telephone Encounter - Lizy Lopez RPh - 07/09/2024 3:30 PM EDT Unable to reach patient at this time. Left message on the answering machine requesting callback regarding new rx for amitiza Patient called with complaints senakot-s was not helping. Amitiza authorized for opioid induced constipation. If patient returns call, please advise and grief counselor on medication Advised patient to please call [phone]. Please transfer her back to the next available [facility]. Thank you, Lizy Lopez, PharmD Clinical Pharmacist [facility] 07/09/24 3:30 PM [phone] * Telephone Encounter - Edu Torre MD - 07/09/2024 3:17 PM EDT Sent to [facility] in [place]. Edu Torre MD * Telephone Encounter - Lizy Lopez [facility] - 07/09/2024 1:51 PM EDT Senokot-S: "Pt states medication is not working for her. She is still having a hard time going to the bathroom " Could consider prescription for Amitiza. Per UpToDate: "Opioid-induced constipation: Oral: 24 mcg twice daily." -Rx is $5 per copay estimation tool Pending Prescriptions: Disp Refills Lubiprostone 24 MCG Oral Capsule (Amitiza)60 Cap* Sig: Take 1 Capsule by mouth 2 times a day with morning and evening meals. Please sign if agreeable and route back so I can advise her. Thank you, Lizy Lopez, PharmD Clinical Pharmacist [facility] 07/09/24 1:54 PM [phone] * Telephone Encounter - Melani Aguilera CPhT - 07/09/2024 1:38 PM EDT Pt calling in to request a dose change on their sennosides- docusate sodium Current dose: take 1 tablet daily in the morning Requested dose: something stronger Reason for request: pt states medication is not working for her. She is still having a hard time going to the bathroom Preferred pharmacy: [id number] Patient unwilling to speak with pharmacist at this time. Routing to pharmacist pool to advise. Thank you, Melani Aguilera CPhT II Lapel Stitcher [facility] 07/09/2024, 1:39 PM documented in this encounter Plan of Treatment Upcoming Encounters Date Type Department Care Team (Late st Contact Info) Description 07/19/2024 2:30 PM EDT Telemedicine Psychiatry Nhi Arteaga [address] [place] [address] Kimi Bro MD [address] [place] [address] 07/21/2024 3:00 PM EDT Office Visit Urology, [facility] 132 [facility] [place] [address] Arturo Ewing MD 27 [facility] [place] [address] 08/04/2024 3:00 PM EST Telemedicine Psychology [facility] 132 [facility] [place] [address] Telma Tyson, [facility] 132 [facility] [place] [address] 08/20/2024 3:00 PM EST Office Visit Neurology [facility] [address] [place] [address] Ekta Carter, IT CONSULTING DIRECTOR [address] [place], [place] [address] 09/01/2024 2:00 PM EST Office Visit [place] [address] [place] [address] JanuaryEdu MD [address] [place] [address] 09/17/2024 2:00 PM EST Office Visit Audiology [facility] 132 [facility] [place] [address] Zonia Marvin Au.D. 132 [facility] [place] [address] 12/17/2024 1:00 PM EDT Hospital Encounter ENDO [facility], Endoscopy Room [facility] [address] [place] [address] Kurtis Bone MD [address] [place] [address] 12/17/2024 1:00 PM EDT - 12/17/2024 1:30 PM EDT Surgery ENDO [facility], Endoscopy Room [facility] [address] [place] [phone] Kurtis Bone MD [address] [place] [address] COLONOSCOPY FLEXIBLE PROXIMAL DIAGNOSTIC Scheduled Procedures Name [...] D LEVEL ONCE IN A LIFETIME-USE SMARTSET# 12017 Completed 01/27/2023, 08/13/2022 Pneumococcal Vaccine: 65+ Years [...] of this encounter Visit Diagnoses Diagnosis Opioid-induced constipation- Primary Adenomatous polyp of colon, unspecified part of colon Fecal occult blood test positive Nonspecific abnormal finding in stool contents documented in this encounter Care Teams Microsoft Dynamics Developer Relationship Specialty Start Date End Date January, Edu Camacho MD [address] [place] [address] PCP - General Family Medicine 07/30/22 documented as of this encounter
--- OUTSIDE RECORDS SUMMARY | 2024-08-28 14:36 | External Medical Summary | Summary of Care ---
Author Name Unknown Organization [facility] Address [address] [place] [address] Phone [phone] Care Team Providers Care Worship Director Name Role Phone Edu Torre MD Primary Care Provider [phone] Encounter Details Date Type Department Care Team (Late st Contact Info) Description 07/19/2024 Telephone Psychiatry Nhi Arteaga [address] [place] [address] Kimi Bro MD [address] [place] [address] Allergies Active Allergy Reactions Criticality Noted Date Comments Prochlorperazine Other (Please comment) Medium 07/30/2022 Generalized weakness Morphine And Codeine Nausea/vomiting,Oth er (Please comment) Medium 07/30/2022 Room spinning as well documented as of this encounter (statuses as of 07/19/2024) Medications Medication Sig Dispensed Refills Start Date [...] the morning. 90 Tablet 3 4 Active HYDROcodone-Acetamin ophen 5-325 MG Oral TabletIndications:Dorinda mbar radiculopathy Take 1 Tablet by mouth every 6 hours as needed for severe pain 120 Tablet 4 Active clonazePAM 0.5 MG Oral Tablet (KlonoPIN)Indication s:Bipolar I disorder, most recent episode depressed (HCC) Take 1 Tablet by mouth in the morning and 1 Tablet in the evening. 60 Tablet 4 Active Lubiprostone 24 MCG Oral Capsule (Amitiza)Indications :Opioid-induced constipation Take 1 Capsule by mouth 2 times a day with morning and evening meals. 60 Capsule 3 4 Active DULoxetine HCl 20 MG Oral Capsule Delayed Release Particles (Cymbalta)Indication s:EVANS (generalized anxiety disorder),Bipolar I disorder, most recent episode depressed (HCC),Panic disorder Take 1 Capsule by mouth at bedtime. Do not cut, crush or chew 15 Capsule 4 Active DULoxetine HCl 30 MG Oral Capsule Delayed Release Particles (Cymbalta)Indication s:EVANS (generalized anxiety disorder),Bipolar I disorder, most recent episode depressed (HCC),Panic disorder Take 1 Capsule by mouth in the morning and 1 Capsule before bedtime. Do not cut, crush or chew. 30 Capsule 4 Active DULoxetine HCl 30 MG Oral Capsule Delayed Release Particles (Cymbalta)Indication s:EVANS (generalized anxiety disorder),Panic disorder Take 1 Capsule by mouth in the morning and 1 Capsule before bedtime. 180 Capsule 3 4 Active DULoxetine HCl 20 MG Oral Capsule Delayed Release Particles (Cymbalta)Indication s:EVANS (generalized anxiety disorder),Bipolar I disorder, most recent episode depressed (HCC) Take 1 Capsule by mouth every night at bedtime. With 30 mg capsule 90 Capsule 3 4 Active ARIPiprazole 15 MG Oral Tablet (Abilify)Indications :Bipolar I disorder, most recent episode depressed (HCC) Take 1 Tablet by mouth every night at bedtime. 90 Tablet 4 Active ARIPiprazole 15 MG Oral Tablet (Abilify)Indications :Bipolar I disorder, most recent episode depressed (HCC) Take 1 Tablet by mouth every night at bedtime. 30 Tablet 4 07/19/20 24 Discontinu ed(Refill) ARIPiprazole 15 MG Oral Tablet (Abilify)Indications :Bipolar I disorder, most recent episode depressed (HCC) Take 1 Tablet by mouth every night at bedtime. 30 Tablet 4 07/19/20 24 Discontinu ed(Refill) documented as of this encounter (statuses as of 07/19/2024) Active Problems Problem Noted Date Diagnosed Date [...] as of this encounter (statuses as of 07/19/2024) Resolved Problems Problem Noted Date Diagnosed Date Resolved Date Bipolar disorder 07/30/2022 11/15/2022 Overview: More recent.specified code listed on PL documented as of this encounter (statuses as of 07/19/2024) Immunizations Name Administration Dates Next Due Pneumococcal [...] Telephone Encounter - Kimi Bro MD - 07/19/2024 2:59 PM EDT Pt did not log onto video for her 2.30 appointment today. Called and spoke to patient- forgot their appointment. Appointment rescheduled to 07/30/24 at 2 pm Pt was requesting refills - as per chart review, meds were sent by covering providers to [facility]. PDMP shows Klonopin was refilled. Pt is also on Opioids currently. Cymbalta was sent to both [facility] and Mail order by her PCP. I sent in scripts for Abilify 15 mg to [facility] Pt advised to keep appointments for ongoing refills. Kimi Bro MD Psychiatry [address] [facility] [address] [facility] [address] documented in this encounter Plan of Treatment Upcoming Encounters Date Type Department Care Team (Late st Contact Info) Description 07/21/2024 3:00 PM EDT Office Visit Urology, [facility] 132 [place] [address] Arturo Ewing MD [address] [place] [address] 07/30/2024 2:00 PM EST Telemedicine Psychiatry [facility] [address] [place] [address] Kimi Bro MD [address] [place] [address] 08/04/2024 3:00 PM EST Telemedicine Psychology [facility] [place] [address] Telma Tyson, INFRASTRUCTURE ANALYST [address] [place] [address] 08/20/2024 3:00 PM EST Office Visit Neu[facility] [place] [address] [facility] [address] Ekta Carter, MOTORCYLES FINAL INSPECTOR [address] [place] [address] 09/01/2024 2:00 PM EST Office Visit [facility] [address] [facility] [phone] JanuaryEdu MD [address] [place] [address] 09/17/2024 2:00 PM EST Office Visit Audiology [facility] [address] [place] [address] Zonia Marvin Au.D. [address] [place] [address] 12/17/2024 1:00 PM EDT Hospital Encounter ENDO [facility], Endoscopy Room [facility] [address] [place] [phone] Kurtis Bone MD [address] [place] [address] 12/17/2024 1:00 PM EDT - 12/17/2024 1:30 PM EDT Surgery ENDO [facility], Endoscopy Room [facility] [address] [place] [phone] Kurtis Bone MD [address] [place] [address] COLONOSCOPY FLEXIBLE PROXIMAL DIAGNOSTIC Scheduled Procedures Name [...] D LEVEL ONCE IN A LIFETIME-USE SMARTSET# 25909 Completed 01/27/2023, 08/13/2022 Pneumococcal Vaccine: 65+ Years [...] contents documented in this encounter Care Teams Worship Director Relationship Specialty Start Date End Date January, Edu Camacho MD [address] [place] [address] PCP - General Family Medicine 07/30/22 documented as of this encounter
--- OUTSIDE RECORDS SUMMARY | 2024-08-28 14:36 | External Medical Summary | Summary of Care ---
Author Name Unknown Organization [facility] Address [address] [place] [address] Phone [phone] Care Team Providers Care Manager Case Management Name Role Phone Edu Torre MD Primary Care Provider [phone] Reason for Visit * Reason Onset Date Comments Pre Op Discussion 04/14/2024 Encounter Details Date Type Department Care Team (Late st Contact Info) Description 04/14/2024 Telephone OR [facility], Operating Room [facility] [address] [place] [address] Tate Dye MD [address] [place] [address] Pre Op Discussion Allergies Active Allergy Reactions Criticality Noted Date Comments Prochlorperazine Other (Please comment) Medium 07/30/2022 Generalized weakness Morphine And Codeine Nausea/vomiting,Oth er (Please comment) Medium 07/30/2022 Room spinning as well documented as of this encounter (statuses as of 07/14/2024) Medications Medication Sig Dispensed Refills Start Date [...] in the morning. 90 Tablet 3 3 05/31/20 24 Discontinu ed(Refill) Myrbetriq 50 MG Oral Tablet Extended Release 24 Hour (Mirabegron ER) Take 1 Tablet by mouth in the morning. 30 Tablet 11 3 06/01/20 24 Discontinu ed(Refill) Benzonatate 100 MG Oral CapsuleIndications:V irclara URI Take 2 Capsules by mouth 3 times a day as needed for Cough. 30 Capsule 1 3 06/02/20 24 Discontinu ed(Medicat ion List Clean Up) DULoxetine HCl 30 MG Oral Capsule Delayed Release Particles (Cymbalta)Indication s:EVANS (generalized anxiety disorder),Panic disorder Take 1 Capsule by mouth in the morning and 1 Capsule before bedtime. 180 Capsule 4 05/07/20 24 Discontinu ed(Refill) clonazePAM 0.5 MG Oral Tablet (KlonoPIN)Indication s:Bipolar I disorder, most recent episode depressed (HCC) Take 1 Tablet by mouth in the morning and 1 Tablet in the evening. 60 Tablet 4 04/18/20 24 Discontinu ed(Refill) DULoxetine HCl 20 MG Oral Capsule Delayed Release Particles (Cymbalta)Indication s:Bipolar I disorder, most recent episode depressed (HCC),EVANS (generalized anxiety disorder) Take 1 Capsule by mouth every night at bedtime. With 30 mg capsule 90 Capsule 4 05/07/20 24 Discontinu ed(Refill) ARIPiprazole 15 MG Oral Tablet (Abilify)Indications :Bipolar I disorder, most recent episode depressed (HCC) Take 1 Tablet by mouth every night at bedtime. 90 Tablet 4 05/26/20 24 Discontinu ed(Refill) Propranolol HCl 10 MG Oral Tablet (Inderal)Indications :EVANS (generalized anxiety disorder),Panic disorder Take one tablet by mouth in the morning and one tablet in the afternoon 180 Tablet 4 05/07/20 24 Discontinu ed(Patient preference /discontin uation) HYDROcodone-Acetamin ophen 5-325 MG Oral TabletIndications:Dorinda mbar radiculopathy Take 1 Tablet by mouth every 6 hours as needed for severe pain 120 Tablet 4 04/18/20 24 Discontinu ed(Refill) documented as of this encounter (statuses as of 07/14/2024) Active Problems Problem Noted Date Diagnosed Date [...] as of this encounter (statuses as of 07/14/2024) Resolved Problems Problem Noted Date Diagnosed Date Resolved Date Bipolar disorder 07/30/2022 11/15/2022 Overview: More recent.specified code listed on PL documented as of this encounter (statuses as of 07/14/2024) Immunizations Name Administration Dates Next Due Pneumococcal [...] No 06/21/2024 Does the household have a [facility] source of income? (Household - for [...] [phone] Kimi Bro MD [address] [place] [address] 07/21/2024 3:00 PM EDT Office Visit Urology, [facility] 132 [facility] [place] [address] Arturo Ewing MD [address] [place] [address] 08/04/2024 3:00 PM EST Telemedicine Psychology [facility] [address] [place] [address] Telma Tyson, [facility] [address] [place] [address] 08/20/2024 3:00 PM EST Office Visit Neurology [facility] [address] [place] [address] Ekta Carter CRNP [address] [place] [address] 09/01/2024 2:00 PM EST Office Visit [facility] [address] [place] [address] Edu Torre MD [address] [place] [address] 09/17/2024 2:00 PM EST Office Visit Audiology [facility] [address] [place] [address] Zonia Marvin AuShari [address] [place] [address] 12/17/2024 1:00 PM EDT Hospital Encounter [facility]O [facility], Endoscopy Room [facility] [address] [place] [phone] Kurtis Bone MD [address] [place] [address] 12/17/2024 1:00 PM EDT - 12/17/2024 1:30 PM EDT Surgery ENDO [facility], Endoscopy Room [facility] [address] [place] [phone] Kurtis Bone MD [address] [place] [address] COLONOSCOPY FLEXIBLE PROXIMAL DIAGNOSTIC Scheduled Procedures Name [...] D LEVEL ONCE IN A LIFETIME-USE SMARTSET# 34061 Completed 01/27/2023, 08/13/2022 Pneumococcal Vaccine: 65+ Years [...] filedocumented as of this encounter Care Teams Manager Case Management Relationship Specialty Start Date End Date January, Edu Camacho MD [address] [place] [address] PCP - General Family Medicine 07/30/22 documented as of this encounter
--- OUTSIDE RECORDS SUMMARY | 2024-08-28 14:36 | External Medical Summary | Summary of Care ---
Author Name Unknown Organization [facility] Address [address] [place] [address] Phone [phone] Care Team Providers Care Aurist Name Role Phone Edu Torre MD Primary Care Provider [phone] Reason for Visit * Reason Onset Date Comments medication change 07/09/2024 Encounter Details Date Type Department Care Team (Late st Contact Info) Description 07/09/2024 Telephone [facility] [address] [place] [address] Edu Torre MD [address] [place] [address] medication change Allergies Active Allergy [...] If patient returns call, please advise and child care counselor on medication Advised patient to please call [phone]. Please transfer her back to the next available [facility]. Thank you, Lizy Lopez, PharmD Clinical Pharmacist [facility] ([facility]) 07/09/24 3:30 PM [phone] * Telephone Encounter - Edu Torre MD - 07/09/2024 3:17 PM EDT Sent to [facility] in [place]. Edu Torre MD * Telephone Encounter - Lizy Lopez [facility] - 07/09/2024 1:51 PM EDT [facility]-S: "Pt [...] Clinical Pharmacy Services ([facility]) 07/09/24 1:54 PM [phone] * Telephone Encounter - Melani Aguilera CPhT - 07/09/2024 1:38 PM EDT Pt calling in to request a dose change on their sennosides- docusate sodium Current dose: take 1 tablet daily in the morning Requested dose: something stronger Reason for request: pt states medication is not working for her. She is still having a hard time going to the bathroom Preferred pharmacy: [id number] Patient unwilling to speak with pharmacist at this time. Routing to pharmacist pool to advise. Thank you, Melani Aguilera CPhT II Apartment Hotel Manager [facility] ([facility]) 07/09/2024, 1:39 PM documented in this encounter Plan of Treatment Upcoming Encounters Date Type Department Care Team (Late st Contact Info) Description 07/19/2024 2:30 PM EDT Telemedicine Psychiatry [address] [address] [place] [address] Kimi Bro MD [address] [place] [address] 07/21/2024 3:00 PM EDT Office Visit Urology, [facility] 132 [facility] [place] [address] Arturo Ewing MD 27 [facility] [place] [address] 08/04/2024 3:00 PM EST Telemedicine Psychology [facility] 132 [facility] [place] [address] Telma Tyson, [facility] 132 [facility] [place] [address] 08/20/2024 3:00 PM EST Office Visit Neurology [facility] [address] [place] [address] Ekta Carter, CYLINDER BATCHER [address] [place], [place] [address] 09/01/2024 2:00 PM EST Office Visit [place] [address] [place] [address] JanuaryEdu MD [address] [place] [address] 09/17/2024 2:00 PM EST Office Visit Audiology [facility] 132 [facility] [place] [address] Zonia Marvin Au.D. 132 [facility] [place] [address] 12/17/2024 1:00 PM EDT Hospital Encounter ENDO [facility], Endoscopy Room [facility] [address] [place] [phone] Kurtis Bone MD [address] [place] [address] 12/17/2024 1:00 PM EDT - 12/17/2024 1:30 PM EDT Surgery ENDO [facility], Endoscopy Room [facility] [address] [place] [phone] Kurtis Bone MD [address] [place] [address] COLONOSCOPY FLEXIBLE PROXIMAL DIAGNOSTIC Scheduled Procedures Name [...] D LEVEL ONCE IN A LIFETIME-USE SMARTSET# 23314 Completed 01/27/2023, 08/13/2022 Pneumococcal Vaccine: 65+ Years [...] contents documented in this encounter Care Teams Aurist Relationship Specialty Start Date End Date January, Edu Camacho MD [address] [place] [address] PCP - General Family Medicine 07/30/22 documented as of this encounter
--- OUTSIDE RECORDS SUMMARY | 2024-08-28 14:36 | External Medical Summary | Summary of Care ---
Author Name Unknown Organization [facility] Address [address] [place] [address] Phone [phone] Care Team Providers Care Mma Fighter Name Role Phone Edu Torre MD Primary Care Provider [phone] Reason for Visit * Reason Onset Date Comments Appointment 07/09/2024 Encounter Details Date Type Department Care Team (Late st Contact Info) Description 07/09/2024 Telephone Neurology, [address] [place] [address] Chung Santos MD [address] [place] [id number] Appointment Allergies Active Allergy Reactions Criticality Noted [...] in the evening. 60 Tablet 07/06/2024 Active documented as of this encounter (statuses as of 07/09/2024) Active Problems Problem Noted Date Diagnosed Date Food insecurity 07/05/2024 Overview: Per [facility] Protocol Migraine without status migrainosus, [...] Encounter - Arely Avelar MED ASSIST - 07/09/2024 10:[address] Santos 06/29/2024 dispo: Return for next available televideo with Dr. Santos. MLOM to schedule, if patient calls back please assist in scheduling. documented in this encounter Plan of Treatment Upcoming Encounters Date Type Department Care Team (Late st Contact Info) Description 07/19/2024 2:30 PM EDT Telemedicine Psychiatry Nhi Arteaga [address] [place] [address] Kimi Bro MD [address] [place] [address] 07/21/2024 3:00 PM EDT Office Visit Urology, [facility] 132 [facility] [place] [address] Arturo Ewing MD [address] [place] [address] 08/04/2024 3:00 PM EST Telemedicine Psychology [facility] [address] V[place] Munoz, [place] [address] Telma Tyson, LEAD CARGOMAN [address] [place] [address] 08/20/2024 3:00 PM EST Office Visit Neurology [facility] [address] [place] [address] Ekta Carter, GEOSCIENCES PROFESSOR [address] [place] [address] 09/01/2024 2:00 PM EST Office Visit [facility] [address] [place] [phone] Edu Torre MD [address] [place] [address] 09/17/2024 2:00 PM EST Office Visit Audiology [facility] [address] [place] [address] Zonia Marvin AuShari [address] [place] [address] 12/17/2024 1:00 PM EDT Hospital Encounter ENDO [facility], Endoscopy Room [facility] [address] [place] [phone] Kurtis Bone MD [address] [place] [address] 12/17/2024 1:00 PM EDT - 12/17/2024 1:30 PM EDT Surgery ENDO [facility], Endoscopy Room [facility] [address] [place] [phone] Kurtis Bone MD [address] [place] [address] COLONOSCOPY FLEXIBLE PROXIMAL DIAGNOSTIC Scheduled Procedures Name [...] D LEVEL ONCE IN A LIFETIME-USE SMARTSET# [id number] Completed 01/27/2023, 08/13/2022 Pneumococcal Vaccine: 65+ Years [...] filedocumented as of this encounter Care Teams Mma Fighter Relationship Specialty Start Date End Date January, Edu Camacho MD [address] [facility] [place] [address] PCP - General Family Medicine 07/30/22 documented as of this encounter
--- OUTSIDE RECORDS SUMMARY | 2024-08-28 14:36 | External Medical Summary | Summary of Care ---
Author Name Unknown Organization [facility] Address [address] [place] [address] Phone [phone] Care Team Providers Care Conciliation Court Judge Name Role Phone Edu Torre MD Primary Care Provider [phone] Reason for Visit * Reason Onset Date Comments Med Request 08/04/2024 Encounter Details Date Type Department Care Team (Late st Contact Info) Description 08/04/2024 Telephone [facility] [address] [place] [address] Edu Torre MD [address] [place] [address] Med Request (/) Allergies Active Allergy Reactions Criticality Noted [...] encounter Miscellaneous Notes * Telephone Encounter - Harper Knight CPhT - 08/04/2024 12:29 PM EST Pt calling to request Clonazepam. Informed pt that RX is available at their pharmacy. Pt verbalizedunderstanding and stated they will check with their pharmacy regarding this medication. Thank you, Harper Knight CPhT Respiratory Medicine Physician [facility] ([facility]) 08/04/2024,12:29 PM documented in this encounter Plan of Treatment Upcoming Encounters Date Type Department Care Team (Late st Contact Info) Description 08/04/2024 3:00 PM EST Telemedicine Psychology [facility] [address] [place] [address] Telma Tyson, [facility] [place] [address] 08/20/2024 3:00 PM EST Office Visit Neurology [facility] [address] [place] [address] Ekta Carter CRNP [address] [place] [address] 09/01/2024 2:00 PM EST Office Visit Family [facility] [address] [place] [address] JanuaryEdu MD [address] [place] [address] 09/03/2024 1:00 PM EST Telemedicine Psychiatry [facility] [place] [address] [place] [address] Kimi Bro MD [address] [facility] [place] [phone] 09/17/2024 2:00 PM EST Office Visit Audiology [facility] [address] [place] [address] Zonia Marvin Au.D. [address] [place] [address] 12/17/2024 1:00 PM EDT Hospital Encounter ENDO [facility], Endoscopy Room [facility] [address] [place] [phone] Kurtis Bone MD [address] [place] [address] 12/17/2024 1:00 PM EDT - 12/17/2024 1:30 PM EDT Surgery [facility], End[facility] Room [facility] [address] [place] [phone] Kurtis Bone MD [address] [place] [address] COLONOSCOPY FLEXIBLE PROXIMAL DIAGNOSTIC 02/02/2025 1:30 PM EDT Office Visit Urology, [facility] [address] [place] [address] Arturo Ewing MD [address] [place] [address] Scheduled Procedures Name Priority Associated Diagnoses Date/Ti [...] D LEVEL ONCE IN A LIFETIME-USE SMARTSET# [id number] Completed 01/27/2023, 08/13/2022 Pneumococcal Vaccine: 65+ Years [...] filedocumented as of this encounter Care Teams Conciliation Court Judge Relationship Specialty Start Date End Date January, Edu Camacho MD [address] [place] [address] PCP - General Family Medicine 07/30/22 documented as of this encounter
--- OUTSIDE RECORDS SUMMARY | 2024-08-28 14:36 | External Medical Summary | Summary of Care ---
Author Name Unknown Organization [facility] Address [address] [place] [address] Phone [phone] Care Team Providers Care Bench Assembly Inspector Name Role Phone Edu Torre MD Primary Care Provider [phone] Reason for Visit * Reason Onset Date Comments Pre Op Discussion 04/19/2024 Encounter Details Date Type Department Care Team (Late st Contact Info) Description 04/19/2024 Telephone OR [facility], Operating Room [facility] 132 [...] Discontinu ed(Refill) Benzonatate 100 MG Oral CapsuleIndications:V iral URI [...] 180 Capsule 4 05/07/20 24 Discontinu ed(Refill) DULoxetine HCl 20 MG [...] 05/07/20 24 Discontinu ed(Patient preference /discontin uation) documented as of this encounter (statuses as of 07/19/2024) Active Problems Problem Noted Date Diagnosed Date Food insecurity 07/05/2024 Overview: Per [facility] Protocol Migraine without status migrainosus, not [...] 07/21/2024 3:00 PM EDT Office Visit Urology, [facility] 132 [facility] [place] [address] Arturo Ewing MD [address] [place] [address] 07/30/2024 2:00 PM EST Telemedicine Psychiatry Nhi [address] [place] [address] Kimi Bro MD [address] [place] [address] 08/04/2024 3:00 PM EST Telemedicine Psychology [facility] [address] [place] [address] Telma Tyson, [facility] [address] [place] [address] 08/20/2024 3:00 PM EST Office Visit Neurology [facility] [address] [place] [address] Ekta Carter CRNP [address] [place] [address] 09/01/2024 2:00 PM EST Office Visit [facility] [address] [place] [address] Edu Torre MD [address] [place] [address] 09/17/2024 2:00 PM EST Office Visit Audiology [facility] [address] [place] [address] Zonia Marvin Au.D. [address] [place] [address] 12/17/2024 1:00 PM EDT Hospital Encounter ENDO [facility], Endoscopy Room [facility] [address] [place] [phone] Kurtis Bone MD [address] [place] [address] 12/17/2024 1:00 PM EDT - 12/17/2024 1:30 PM EDT Surgery [facility]O [facility], Endoscopy Room [facility] [address] [place] [phone] Kurtis Bone MD [address] [place] [address] COLONOSCOPY FLEXIBLE PROXIMAL DIAGNOSTIC Scheduled Procedures Name [...] D LEVEL ONCE IN A LIFETIME-USE SMARTSET# [id number] Completed 01/27/2023, 08/13/2022 Pneumococcal Vaccine: 65+ Years [...] filedocumented as of this encounter Care Teams Bench Assembly Inspector Relationship Specialty Start Date End Date January, Edu Camacho MD [address] [place] [address] PCP - General Family Medicine 07/30/22 documented as of this encounter
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
--- OUTSIDE RECORDS SUMMARY | 2024-08-28 14:37 | External Medical Summary | Summary of Care ---
Author Name Unknown Organization [facility] Address [address] [facility] [place] [address] Phone [phone] Care Team Providers Care Molder Meat Name Role Phone Edu Torre MD Primary Care Provider [phone] Reason for Visit * Reason Onset Date Comments Appointment 06/29/2024 Today appointmen t Encounter Details Date Type Department Care Team (Late st Contact Info) Description 06/29/2024 Telephone Access Center, [facility] [address] [facility] *DO NOT REMOVE THIS DEPARTMENT* [place] [id number] Sam Isidro MD [address] [place] [address] [place] [address] Appointment (Today appointment) Allergies Active Allergy Reactions Criticality Noted Date Comments Prochlorperazine Other (Please comment) Medium 07/30/2022 Generalized weakness Morphine And Codeine Nausea/vomiting,Oth er (Please comment) Medium 07/30/2022 Room spinning as well documented as of this encounter (statuses as of 07/02/2024) Medications Medication Sig Dispensed Refills Start Date [...] differently:70 mg Oral QWEEK,SATURDAYS, Reported on 04/19/2024 HYDROcodone-Acetamino phen 5-325 MG Oral TabletIndications:Lum bar radiculopathy Take 1 Tablet by mouth every 6 hours as needed for severe pain 120 Tablet 05/31/2024 Active clonazePAM 0.5 MG Oral Tablet (KlonoPIN)Indications :Bipolar I disorder, most recent episode depressed (HCC) Take 1 Tablet by mouth in the morning and 1 Tablet in the evening. 60 Tablet 05/31/2024 Active Topiramate 50 MG Oral Tablet (topAMAX) [...] night at bedtime. 30 Tablet 06/25/2024 Active documented as of this encounter (statuses as of 07/02/2024) Active Problems Problem Noted Date Diagnosed Date [...] as of this encounter (statuses as of 07/02/2024) Resolved Problems Problem Noted Date Diagnosed Date Resolved Date Bipolar disorder 07/30/2022 11/15/2022 Overview: More recent.specified code listed on PL documented as of this encounter (statuses as of 07/02/2024) Immunizations Name Administration Dates Next Due Pneumococcal [...] encounter Miscellaneous Notes * Telephone Encounter - Shira Sharpe OSA - 07/02/2024 5:39 PM EDT [facility] Phone Call Form- Requested Information from caller: Who is calling (not pt) name: Danni relationship: daughter Provider patient is established with: Tom What is the concern or issue they are having: stated they had their phone and it didn't ring after the video issue they had. Can he call one more time just to get her mom anxiety down a bit regardingher results of MRI and lab work Any additional details to add: no Phone number for nurse to call back: please call daughter [phone] Are forms needed? no Medication Refill? no Verify Pharmacy information is correct. * Telephone Encounter - Charlotte Berrios OSA - 06/30/2024 7:35 AM EDT Per office note, provider attempted to contact patient via televideo system and by telephone without success. Left voicemail with patient to reschedule. * Telephone Encounter - Danni Gardner OSA - 06/29/2024 3:41 PM EDT [facility] Phone Call Form- Requested Information from caller: Who is calling patient Provider patient is established with: SAM ISIDRO What is the concern or issue they are having: patient called stating that she is currently in an appointment with Dr. Isidro, but he can't hear or see her. She would like to know if Dr. Isidro can just call her instead, as it would be much easier for her. How long has the issue been going on: today Any additional details to add: no Phone number for nurse to call back: [phone] documented in this encounter Plan of Treatment Upcoming Encounters Date Type Department Care Team (Late st Contact Info) Description 07/09/2024 2:30 PM EDT Hospital Encounter ENDO [facility], Endoscopy Room [facility] [address] [place] [phone] Kurtis Bone MD [address] [place] [address] 07/09/2024 2:30 PM EDT - 07/09/2024 3:00 PM EDT Surgery ENDO [facility], Endoscopy Room [facility] [address] [place] [phone] Kurtis Bone MD [address] [place] [address] COLONOSCOPY FLEXIBLE PROXIMAL DIAGNOSTIC 07/19/2024 2:30 PM EDT Telemedicine Psychiatry [facility] [address] [place] [phone] Kimi Bro MD [address] [place] [address] 07/21/2024 3:00 PM EDT Office Visit Urology, [facility] [address] [place] [address] Arturo Ewing MD [address] [place] [address] 08/04/2024 3:00 PM EST Telemedicine Psychology [facility] [place] [address] Telma Tyson, [facility] [address] [place] [address] 08/20/2024 3:00 PM EST Office Visit Neurology [facility] [address] [place] [address] Ekta Carter CRNP [address] [place] [address] 09/01/2024 2:00 PM EST Office Visit Family [facility] [address] [place] [address] January, Edu Camacho MD [address] [place] [address] 09/17/2024 2:00 PM EST Office Visit Audiology [facility] [address] [place] [address] Zonia Marvin AuShari [address] [facility] [place] [address] Scheduled Procedures Name Priority Associated Diagnoses Date/Ti me COLONOSCOPY FLEXIBLE PROXIMAL DIAGNOSTIC Recall Adenomatous polyp of colon, unspecified part of colon Fecal occult blood test positive 07/09/2024 2:30 PM EDT Health Maintenance Due Date Last Done Comments Cologuard 1998 Colonoscopy 1998 Sigmoidoscopy 1998 Adult Wellness Visit 2019 Mammogram 02/15/2024 02/14/2023, 02/14/2023 COVID-19 Vaccine (3 - 2024-25 season) 2024 11/20/2020, 10/23/2020 Influenza Vaccine (FLU shot) (#1) 2024 DXA Scan 01/27/2025 01/27/2023 Colorectal Cancer Screening 05/26/2025 Fecal Occult Blood Test 05/26/2025 05/26/20 24, 05/26/2024, 08/29/2022, Additional history exists Depression Monitoring 06/10/2025 06/10/2024 Lipid Panel 08/13/2027 08/13/2022 VITAMIN D LEVEL ONCE IN A LIFETIME-USE SMARTSET# 42703 Completed 01/27/2023, 08/13/2022 Pneumococcal Vaccine: 65+ Years [...] filedocumented as of this encounter Care Teams Molder Meat Relationship Specialty Start Date End Date January, Edu Camacho MD [address] [place] [address] PCP - General Family Medicine 07/30/22 documented as of this encounter
--- OUTSIDE RECORDS SUMMARY | 2024-08-28 14:37 | External Medical Summary | Summary of Care ---
Author Name Unknown Organization [facility] Address [address] [place] [address] Phone [phone] Care Team Providers Care Child Welfare Caseworker Name Role Phone Edu Torre MD Primary Care Provider [phone] Reason for Visit * Reason Onset Date Comments Medication Refill 05/28/2024 Encounter Created in Error 05/28/2024 Encounter Details Date Type Department Care Team (Late st Contact Info) Description 05/28/2024 Telephone Psychiatry, [facility] [address] [place] [address] Yahaira Adams CRNP Medication Refill; Encounter Created in Error Allergies Active Allergy Reactions Criticality Noted Date Comments Prochlorperazine Other (Please comment) Medium 07/30/2022 Generalized weakness Morphine And Codeine Nausea/vomiting,Oth er (Please comment) Medium 07/30/2022 Room spinning as well documented as of this encounter (statuses as of 06/24/2024) Medications Medication Sig Dispensed Refills Start Date [...] differently:70 mg Oral QWEEK,SATURDAYS, Reported on 04/19/2024 ARIPiprazole 15 MG Oral Tablet (Abilify)Indications: Bipolar I disorder, most recent episode depressed (HCC) Take 1 Tablet by mouth every night at bedtime. 30 Tablet 05/26/2024 Active documented as of this encounter (statuses as of 06/24/2024) Active Problems Problem Noted Date Diagnosed Date [...] as of this encounter (statuses as of 06/24/2024) Resolved Problems Problem Noted Date Diagnosed Date Resolved Date Bipolar disorder 07/30/2022 11/15/2022 Overview: More recent.specified code listed on PL documented as of this encounter (statuses as of 06/24/2024) Immunizations Name Administration Dates Next Due Pneumococcal [...] No 06/21/2024 Does the household have a [facility] source of income? (Household - for ages [...] Team (Late st Contact Info) Description 06/29/2024 3:00 PM EDT Telemedicine Neurology, [place] [facility] [address] [place] [address] Chung Santos MD [address] [place] [address] 06/30/2024 2:00 PM EDT Telemedicine Psychology [facility] [address] [place] [address] Telma Tyson, [facility] [address] [place] [address] 07/09/2024 2:30 PM EDT Hospital Encounter ENDO [facility], Endoscopy Room [facility] [address] [place] [address] Kurtis Bone MD [address] [place] [address] 07/09/2024 2:30 PM EDT - 07/09/2024 3:00 PM EDT Surgery ENDO [facility], Endoscopy Room [facility] [address] [place] [address] Kurtis Bone MD [address] [place] [address] COLONOSCOPY FLEXIBLE PROXIMAL DIAGNOSTIC 07/14/2024 3:00 PM EDT Office Visit Neurology [address] [place] [address] Ekta Carter CRNP [address] [place], [place] [id number] 07/19/2024 2:30 PM EDT Telemedicine Psychiatry [facility] [place] [address] Kimi Bro MD [address] [place] [address] 07/21/2024 3:00 PM EDT Office Visit Urology, [facility] [address] [place] [address] Arturo Ewing MD [address] [place] [id number] 09/01/2024 2:00 PM EST Office Visit [facility] [address] [place] [address] Edu Torre MD [address] [place] [address] 09/17/2024 2:00 PM EST Office Visit Audiology [facility] [address] [place] [address] Zonia Marvin Au.D. [address] [place] [address] Scheduled Procedures Name Priority Associated Diagnoses Date/Ti me COLONOSCOPY FLEXIBLE PROXIMAL DIAGNOSTIC Recall Adenomatous polyp of colon, unspecified part of colon Fecal occult blood test positive 07/09/2024 2:30 PM EDT Health Maintenance Due Date Last Done Comments Cologuard 1998 Colonoscopy 1998 Sigmoidoscopy 1998 Adult Wellness Visit 2019 Mammogram 02/15/2024 02/14/2023, 02/14/2023 COVID-19 Vaccine (2023-2 5 season) 2024 11/20/2020, 10/23/2020 Influenza Vaccine (FLU shot) (#1) 2024 DXA Scan 01/27/2025 01/27/2023 Colorectal Cancer Screening 05/26/2025 Fecal Occult Blood Test 05/26/2025 05/26/20 24, 08/29/2022, 08/29/2022 Depression Monitoring 06/10/2025 06/10/2024 Lipid Panel 08/13/2027 08/13/2022 VITAMIN D LEVEL ONCE IN A LIFETIME-USE SMARTSET# 76711 Completed 01/27/2023, 08/13/2022 Pneumococcal Vaccine: 65+ Years [...] filedocumented as of this encounter Care Teams Child Welfare Caseworker Relationship Specialty Start Date End Date January, Edu Camacho MD [address] [place] [address] PCP - General Family Medicine 07/30/22 documented as of this encounter
--- OUTSIDE RECORDS SUMMARY | 2024-08-28 14:37 | External Medical Summary | Summary of Care ---
Author Name Unknown Organization [facility] Address [address] [facility] [place] [address] Phone [phone] Care Team Providers Care Solar Energy Specialist Name Role Phone Edu Torre MD Primary Care Provider [phone] Reason for Visit * Reason Onset Date Comments Appointment 06/29/2024 Today appointmen t Encounter Details Date Type Department Care Team (Late st Contact Info) Description 06/29/2024 Telephone Access Center, [place] [address] [facility] *DO NOT REMOVE THIS DEPARTMENT* [place] [id number] Sam Isidro MD [address] [place] [address] [place] [address] Appointment (Today appointment) Allergies Active Allergy Reactions Criticality Noted Date Comments Prochlorperazine Other (Please comment) Medium 07/30/2022 Generalized weakness Morphine And Codeine Nausea/vomiting,Oth er (Please comment) Medium 07/30/2022 Room spinning as well documented as of this encounter (statuses as of 07/06/2024) Medications Medication Sig Dispensed Refills Start Date [...] needed for severe pain 120 Tablet 4 07/02/20 24 Discontinu ed(Refill) clonazePAM 0.5 MG Oral Tablet (KlonoPIN)Indication s:Bipolar I disorder, most recent episode depressed (HCC) Take 1 Tablet by mouth in the morning and 1 Tablet in the evening. 60 Tablet 4 07/05/20 24 Discontinu ed(Refill) documented as of this encounter (statuses as of 07/06/2024) Active Problems Problem Noted Date Diagnosed Date [...] as of this encounter (statuses as of 07/06/2024) Resolved Problems Problem Noted Date Diagnosed Date Resolved Date Bipolar disorder 07/30/2022 11/15/2022 Overview: More recent.specified code listed on PL documented as of this encounter (statuses as of 07/06/2024) Immunizations Name Administration Dates Next Due Pneumococcal [...] encounter Miscellaneous Notes * Telephone Encounter - Sam Isidro MD - 07/06/2024 6:09 PM EDT I called and advised that the labs for memory are okay except for the homocysteine which she is taking folic acid for and that the MRI Brain showed some shrinkage maybe a bit more in the memory partsof the brain and some small vessel vascular disease but counseled them that I need a full behavioral neurology examination to place those findings into context and that they can keep the appointment with the Memory and Cognition Advanced Practitioner Ekta Carter in person at Neurology [facility] who can get the results of that examination to me and then I can follow up in a video visit later on next steps including whether to pursue neuropsychology testing and that I would forward this to Lucinda so she knows the examination I need. * Telephone Encounter - Shira Sharpe OSA - 07/02/2024 5:39 PM EDT Neuroscience Phone Call Form- Requested Information from caller: Who is calling (not pt) name: Crystal relationship: daughter Provider patient is established with: [...] nurse to call back: please call daughter [phone] Are forms needed? no Medication Refill? no [...] Phone number for nurse to call back: [phone] documented in this encounter Plan of Treatment Upcoming Encounters Date Type Department Care Team (Late st Contact Info) Description 07/09/2024 2:30 PM EDT Hospital Encounter ENDO [facility], Endoscopy Room [facility] [address] [place] [phone] Kurtis Bone MD [address] [place] [address] 07/09/2024 2:30 PM EDT - 07/09/2024 3:00 PM EDT Surgery ENDO [facility], Endoscopy Room [facility] [address] [place] [address] Kurtis Bone MD [address] [place] [address] COLONOSCOPY FLEXIBLE PROXIMAL DIAGNOSTIC 07/19/2024 2:30 PM EDT Telemedicine Psychiatry [facility] [address] [place] [address] Kimi Bro MD [address] [place] [address] 07/21/2024 3:00 PM EDT Office Visit Urology, [facility] 132 [facility] [place] [address] Arturo Ewing MD [address] [place], [place] [address] 08/04/2024 3:00 PM EST Telemedicine Psychology [facility] 132 [place] [address] Telma Tyson, [facility] [address] [facility] [address] 08/20/2024 3:00 PM EST Office Visit Neurology [facility] 200 [facility] [place] [address] Ekta Carter CRNP [address] [place] [address] 09/01/2024 2:00 PM EST Office Visit [address] [phone] Edu Torre MD [address] [facility] [place] [address] 09/17/2024 2:00 PM EST Office Visit Audiology [facility] [address] [place] [address] Zonia Marvin Au.D. [address] [place] [address] Scheduled Procedures Name Priority Associated Diagnoses Date/Ti [...] D LEVEL ONCE IN A LIFETIME-USE SMARTSET# [id number] Completed 01/27/2023, 08/13/2022 Pneumococcal Vaccine: 65+ Years [...] filedocumented as of this encounter Care Teams Solar Energy Specialist Relationship Specialty Start Date End Date January, Edu Camacho MD [address] [place] [address] PCP - General Family Medicine 07/30/22 documented as of this encounter
--- OUTSIDE RECORDS SUMMARY | 2024-08-28 14:37 | External Medical Summary | Summary of Care ---
Author Name Unknown Organization [facility] Address [address] [place] [address] Phone [phone] Care Team Providers Care Egg Producer Name Role Phone Edu Torre MD Primary Care Provider [phone] Reason for Visit * Reason Comments Medication Refill Encounter Details Date Type Department Care Team (Late st Contact Info) Description 07/05/2024 Refill Psychiatry [facility] [address] [place] [address] Mino Hinojosa MD [address] [place] [address] Bipolar I disorder, most recent [...] encounter Miscellaneous Notes * Telephone Encounter - Koki Don MD [...] EDT Hospital Encounter ENDO [facility], Endoscopy Room [facility] [place] [address] Kurtis Bone MD [address] [place] [address] 07/09/2024 2:30 PM EDT - 07/09/2024 3:00 PM EDT Surgery ENDO [facility], Endoscopy Room [facility] [address] [place] [address] Kurtis Bone MD [address] [place] [address] COLONOSCOPY FLEXIBLE PROXIMAL DIAGNOSTIC 07/19/2024 2:30 PM EDT Telemedicine Psychiatry [facility] [address] [place] [address] Kimi Bro MD [address] [place] [address] 07/21/2024 3:00 PM EDT Office Visit Urology, [facility] 132 [facility] [place] [address] Arturo Ewing MD [address] [place] [address] 08/04/2024 3:00 PM EST Telemedicine Psychology [facility] [place] [address] Telma Tyson, SERVICE DELIVERY MANAGER [address] [facility] [address] 08/20/2024 3:00 PM EST Office Visit Neurology [facility] [address] [facility], [place] [address] Ekta Carter CRNP [address] [place] [address] 09/01/2024 2:00 PM EST Office Visit [address] [place] [address] JanuaryEdu MD [address] [place] [address] 09/17/2024 2:00 PM EST Office Visit Audiology [facility] [address] [place] [address] Zonia Marvin Au.D. [address] [place] [address] Scheduled Procedures Name Priority Associated Diagnoses Date/Ti [...] D LEVEL ONCE IN A LIFETIME-USE SMARTSET# [id number] Completed 01/27/2023, 08/13/2022 Pneumococcal Vaccine: 65+ Years [...] contents documented in this encounter Care Teams Egg Producer Relationship Specialty Start Date End Date January, Edu Camacho MD [address] [place] [address] PCP - General Family Medicine 07/30/22 documented as of this encounter
--- OUTSIDE RECORDS SUMMARY | 2024-08-28 14:37 | External Medical Summary | Summary of Care ---
Author Name Unknown Organization [facility] Address [address] [place] [address] Phone [phone] Care Team Providers Care Division Service Manager Name Role Phone Edu Torre MD Primary Care Provider [phone] Reason for Visit * Reason Onset Date Comments Lost Previous Prescription 07/07/2024 Cx pr ocedure 07/09/2024 Encounter Details Date Type Department Care Team (Late st Contact Info) Description 07/07/2024 Telephone Gastroenterology, [facility] 132 [facility] [place] [address] Services, Scheduling [address] [place] [address] Lost Previous Prescription (Cx procedure 1... Allergies Active Allergy Reactions Criticality Noted Date [...] encounter Miscellaneous Notes * Telephone Encounter - Rona Nath OSA - 07/07/2024 10:09 AM EDT Patient is calling and stated that she is not feeling well and wishes to cancel her procedure for 07/09/2024. She would like a recall to reschedule documented in this encounter Plan of Treatment Upcoming Encounters Date Type Department Care Team (Late st Contact Info) Description 07/09/2024 2:30 PM EDT Hospital Encounter ENDO [facility], Endoscopy Room [facility] [address] [place] [phone] Kurtis Bone MD [address] [place] [address] 07/09/2024 2:30 PM EDT - 07/09/2024 3:00 PM EDT Surgery ENDO [facility], Endoscopy Room [facility] [address] [address] Kurtis Bone MD [address] [place] [address] COLONOSCOPY FLEXIBLE PROXIMAL DIAGNOSTIC 07/19/2024 2:30 PM EDT Telemedicine Psychiatry [place] [address] [place] [address] Kimi Bro MD [address] [place] [address] 07/21/2024 3:00 PM EDT Office Visit Urology, [facility] 132 [place] [address] Arturo Ewing MD [address] [place] [address] 08/04/2024 3:00 PM EST Telemedicine Psychology [facility] 132 [place] [address] Telma Tyson, [facility] 132 [facility] [place] [address] 08/20/2024 3:00 PM EST Office Visit Neurology [facility] [address] [place] [address] Ekta Carter CRNP [address] [place] [address] 09/01/2024 2:00 PM EST Office Visit [facility] [address] [place] [address] Edu Torre MD [address] [place] [address] 09/17/2024 2:00 PM EST Office Visit Audiology [facility] 132 [place] [address] Zonia Marvin Au.D. [address] [facility] [address] Scheduled Procedures Name Priority Associated Diagnoses Date/Ti [...] D LEVEL ONCE IN A LIFETIME-USE SMARTSET# [id number] Completed 01/27/2023, 08/13/2022 Pneumococcal Vaccine: 65+ Years [...] filedocumented as of this encounter Care Teams Division Service Manager Relationship Specialty Start Date End Date January, Edu Camacho MD [address] [place] [address] PCP - General Family Medicine 07/30/22 documented as of this encounter
--- OUTSIDE RECORDS SUMMARY | 2024-08-28 14:37 | External Medical Summary | Summary of Care ---
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)*; EVANS (generalized anxiety disorder); History of bipolar disorder; Memory deficit Allergies Active Allergy Reactions Criticality Noted Date Comments Prochlorperazine Other (Please comment) Medium 07/30/2022 Generalized weakness Morphine And Codeine Nausea/vomiting,Oth er (Please comment) Medium 07/30/2022 Room spinning as well documented as of this encounter (statuses as of 06/30/2024) Medications Medication Sig Dispensed Refills Start Date [...] as of this encounter (statuses as of 06/30/2024) Active Problems Problem Noted Date Diagnosed Date [...] as of this encounter (statuses as of 06/30/2024) Resolved Problems Problem Noted Date Diagnosed Date Resolved Date Bipolar disorder 07/30/2022 11/15/2022 Overview: More recent.specified code listed on PL documented as of this encounter (statuses as of 06/30/2024) Immunizations Name Administration Dates Next Due Pneumococcal [...] of this encounter Progress Notes * Telma Tyson LCSW - 06/30/2024 2:06 PM EDT Patient location: HOME. I was in a hospital or clinic location. After connecting through televideo,patient was verified with two unique identifiers. Patient (or authorized legal apparel trimmings sales representative) was then informed that this was a Telemedicine visit and being conducted confidentially over secure lines. Methods to assure confidentiality were taken. Patient acknowledged consent and understanding of pr ivacy and security of the Telemedicine visit. The patient agreed to participate. PRIMARY CARE BEHAVIORAL HEALTH FOLLOW-UP 06/30/2024 Length of visit: 50 minutes (2:05 pm - 2:55 pm) Type of Visit: individual Treatment session number: 1 AGENDA & ACTION PLAN: -Check in-Lulu shared update of her situation. -Today therapist utilized open ended, closed ended questions and reflective and active listening topromote expression of thoughts and feelings as therapist explored how Lulu in adjusting to her health and new life in [place] and managing her anxiety. She reports feeling better overall with less shakiness and less feeling of being jittery. "I'm better overall". Today therapist utilized a strength perspective exploring with Lulu what strengths she utilizes in management of her adjustmentwith consideration to strengths she may have discovered in the past when dealing with adversity Lulu expressed difficulty identifying strengths but responded to current actions she is taking to help herself such as asking for help or doing tasks around the house. Therapist provided positive support and discussed how these action steps can help in lifting mood and feeling productive in some way. -Therapist did introduce a grounding exercise which we did in session using the five senses. Lulu was participatory and engaged during this exercise. Therapist explained the benefit to managing strong emotions or anxiety. Optional: Interventions addressed in treatment thus far: Treatment/Intervention Visit 06/30/2024 1 2 3 4 5 6 Behavioral activation Behavior modification for poor health behaviors (e.g., smoking cessation) Breathing re-training mindfulness training x Cognitive restructuring/diffusion Exercise/physical activity Problem-solving Psychoeducation Exposure and/or response prevention Supportive therapy x Sleep hygiene Stimulus control Time in bed restriction Conduct WHO (BHCM,BRODERICK,MTM) MENTAL STATUS EXAMINATION: No changes to mental status since last visit. No change in suicide or homicide risk status since last visit. Level of suicide completion risk:Low Risk (wish to or ideation without method, intent, plan, orbehavior; modifiable risk factors and strong protective factors; or no reported history of ideationor behavior): Pt has agreed to return for further psychotherapy. Major Depressive disorder, Generalized Anxiety disorder, History of Bipolar disorder. Memory Deficits. RETURN 2 WEEKS for individual cognitive behavioral therapy. Telma Tyson LCSW Primary Care Behavioral Health Psychology [facility] [address] [place] [address] documented in this encounter Plan of Treatment Upcoming Encounters Date Type Department Care Team (Late st Contact Info) Description 07/09/2024 2:30 PM EDT Hospital Encounter ENDO [facility], Endoscopy Room [facility] [address] [place] [phone] Kurtis Bone MD [address] [place] [address] 07/09/2024 2:30 PM EDT - 07/09/2024 3:00 PM EDT Surgery ENDO [facility], Endoscopy Room [facility] [address] [place] [address] Kurtis Bone MD [address] [place] [address] COLONOSCOPY FLEXIBLE PROXIMAL DIAGNOSTIC 07/14/2024 3:00 PM EDT Office Visit Neurology [address] [place] [address] Ekta Carter CRNP [address] [place] [facility] [place] [address] 07/19/2024 2:30 PM EDT [facility] [address] [place] [address] Kimi Bro MD [address] [place] [address] 07/21/2024 3:00 PM EDT Office Visit Urology, [facility] [address] [facility] [place] [address] Arturo Ewing MD [address] [facility], [place] [address] 08/04/2024 3:00 PM EST Telemedicine Psychology [facility] [place] [address] Telma Tyson, [facility] [address] [facility] [place] [address] 09/01/2024 2:00 PM EST Office Visit [facility] [address] [place] [address] Edu Torre MD [address] [place] [address] 09/17/2024 2:00 PM EST Office Visit Audiology [facility] [address] [place] [address] Zonia Marvin Au.D. [address] [place] [address] Scheduled Procedures Name Priority Associated Diagnoses Date/Ti [...] D LEVEL ONCE IN A LIFETIME-USE SMARTSET# [id number] Completed 01/27/2023, 08/13/2022 Pneumococcal Vaccine: 65+ Years [...] contents documented in this encounter Care Teams Co Founder And Ceo Relationship Specialty Start Date End Date January, Edu Camacho MD [address] [place] [address] PCP - General Family Medicine 07/30/22 documented as of this encounter
--- OUTSIDE RECORDS SUMMARY | 2024-08-28 14:37 | External Medical Summary | Summary of Care ---
Author Name Unknown Organization [facility] Address [address] [place] [address] Phone [phone] Care Team Providers Care Rough Planer Tender Name Role Phone Edu Torre MD Primary Care Provider [phone] Reason for Visit * Reason Comments Medication Refill Encounter Details Date Type Department Care Team (Late st Contact Info) Description 06/29/2024 Refill Psychiatry Nhi Arteaga [address] [place] [address] Mino Hinojosa MD [address] [place] [address] Bipolar I disorder, most recent episode depressed (HCC) Allergies Active Allergy Reactions Criticality Noted Date Comments Prochlorperazine Other (Please comment) Medium 07/30/2022 Generalized weakness Morphine And Codeine Nausea/vomiting,Oth er (Please comment) Medium 07/30/2022 Room spinning as well documented as of this encounter (statuses as of 06/29/2024) Medications Medication Sig Dispensed Refills Start Date [...] as of this encounter (statuses as of 06/29/2024) Active Problems Problem Noted Date Diagnosed Date [...] as of this encounter (statuses as of 06/29/2024) Resolved Problems Problem Noted Date Diagnosed Date Resolved Date Bipolar disorder 07/30/2022 11/15/2022 Overview: More recent.specified code listed on PL documented as of this encounter (statuses as of 06/29/2024) Immunizations Name Administration Dates Next Due Pneumococcal [...] Telephone Encounter - Kimi Bro MD - 06/29/2024 5:08 PM EDT Refused Prescriptions: Disp Refills clonazePAM 0.5 MG Oral Tablet (KlonoPIN) 60 Tab*0 Sig: Take 1 Tablet by mouth in the morning and 1 Tablet in the evening. Refused By: KIMI BRO Reason for Refusal: Appt. Required, please call patient * Telephone Encounter - Aurelia Haney MD - 06/29/2024 3:49 PM EDTPending Prescriptions: Disp Refills clonazePAM 0.5 MG Oral Tablet (KlonoPIN) 60 Tab*0 Sig: Take 1 Tablet by mouth in the morning and 1 Tablet in the evening. documented in this encounter Plan of Treatment Upcoming Encounters Date Type Department Care Team (Late st Contact Info) Description 06/30/2024 2:00 PM EDT Telemedicine Psychology [facility] [address] [place] [address] Telma Tyson, DISTRICT ASSOCIATE JUDGE [address] [place] [address] 07/09/2024 2:30 PM EDT Hospital Encounter [facility], Endoscopy Room [facility] [address] [place] [address] Kurtis Bone MD [address] [place] [address] 07/09/2024 2:30 PM EDT - 07/09/2024 3:00 PM EDT Surgery ENDO [facility], Endoscopy Room [facility] [address] [place] [address] Kurtis Bone MD [address] [place] [address] COLONOSCOPY FLEXIBLE PROXIMAL DIAGNOSTIC 07/14/2024 3:00 PM EDT Office Visit Neurology Nhi [address] [place] [address] Ekta Carter CRNP [address] [place] [address] 07/19/2024 2:30 PM EDT Telemedicine Psychiatry Nhi Arteaga [address] [place] [address] Kimi Bro MD [address] [place] [address] 07/21/2024 3:00 PM EDT Office Visit Urology, [facility] 132 [facility] [place] [address] Arturo Ewing MD [address] [place] [address] 09/01/2024 2:00 PM EST Office Visit [facility] [address] [place] [address] JanuaryEdu MD [address] [place] [address] 09/17/2024 2:00 PM EST Office Visit Audiology [facility] 132 [facility] [place] [address] Zonia Marvin Au.D. 132 [facility] [place] [address] Scheduled Procedures Name Priority Associated Diagnoses Date/Ti [...] D LEVEL ONCE IN A LIFETIME-USE SMARTSET# [id number] Completed 01/27/2023, 08/13/2022 Pneumococcal Vaccine: 65+ Years [...] contents documented in this encounter Care Teams Rough Planer Tender Relationship Specialty Start Date End Date January, Edu Camacho MD [address] [place] [address] PCP - General Family Medicine 07/30/22 documented as of this encounter
--- OUTSIDE RECORDS SUMMARY | 2024-08-28 14:37 | External Medical Summary | Summary of Care ---
Author Name Unknown Organization [facility] Address [address] [place] [address] Phone [phone] Care Team Providers Care Awning Maker Name Role Phone Edu Torre MD Primary Care Provider [phone] Reason for Visit * Reason Onset Date Comments Med Request 06/14/2024 Encounter Details Date Type Department Care Team (Late st Contact Info) Description 06/14/2024 Telephone Urogynecology [facility] [address] [place] [address] Shola Peñaloza MD [address] [place] [address] Med Request Allergies Active Allergy Reactions Criticality Noted Date Comments Prochlorperazine Other (Please comment) Medium 07/30/2022 Generalized weakness Morphine And Codeine Nausea/vomiting,Oth er (Please comment) Medium 07/30/2022 Room spinning as well documented as of this encounter (statuses as of 06/23/2024) Medications Medication Sig Dispensed Refills Start Date [...] on 04/19/2024 ARIPiprazole 15 MG Oral Tablet (Abilify)Indications :Bipolar [...] in the evening. 60 Tablet 4 Active Topiramate 50 MG Oral Tablet [...] 90 Tablet 3 4 Active DULoxetine HCl 30 MG Oral Capsule Delayed Release Particles (Cymbalta)Indication s:EVANS (generalized anxiety disorder),Panic disorder Take 1 Capsule by mouth in the morning and 1 Capsule before bedtime. 180 Capsule 4 06/21/20 24 Discontinu ed(Refill) DULoxetine HCl 20 MG Oral Capsule Delayed Release Particles (Cymbalta)Indication s:EVANS (generalized anxiety disorder),Bipolar I disorder, most recent episode depressed (HCC) Take 1 Capsule by mouth every night at bedtime. With 30 mg capsule 90 Capsule 4 06/21/20 24 Discontinu ed(Refill) documented as of this encounter (statuses as of 06/23/2024) Active Problems Problem Noted Date Diagnosed Date [...] as of this encounter (statuses as of 06/23/2024) Resolved Problems Problem Noted Date Diagnosed Date Resolved Date Bipolar disorder 07/30/2022 11/15/2022 Overview: More recent.specified code listed on PL documented as of this encounter (statuses as of 06/23/2024) Immunizations Name Administration Dates Next Due Pneumococcal [...] encounter Miscellaneous Notes * Telephone Encounter - Ana Cabrear CPhT - 06/23/2024 12:20 PM EDT Incoming call from patient stating that she is out of mirabegron and the pharmacy would not fill the medication. Reached out to pharmacy who stated that they shipped out the medication on 05/08 and itis too soon to fill. Informed caller of this information and patient stated that she did not receive the shipment from 05/08. Informed her to reach out to the pharmacy to report this to have the situation corrected. Caller verbalized understanding and stated she would reach out to the pharmacy. Thank you, Ana Cabrera CPhT Needle Control [place] II [facility] ([facility]) 06/23/2024,12:21 PM * Telephone Encounter - Ludmila Gonzáles CPhT - 06/23/2024 12:04 PM EDT Transferred to [facility] Line. Thank you, Ludmila Gonzáles Needle Control [employer] [facility] ([facility]) 06/23/2024, 12:05 PM * Telephone Encounter - Alyssa Pascal PHARM Tech - 06/14/2024 4:12 PM EDT Pt called asking for bryan. Pt said she is out of rx. Called pharmacy and they said they filledit on 05/08 so its too soon to fill. Insurance will cover rx on 07/24. Tried to contact pt to advise and check how she is taking rx but pt didn't answer. LMOVM. Thanks, Alyssa Pascal Needle Control [employer] [facility] ([facility]) 06/14/2024,4:13 PM documented in this encounter Plan of Treatment Upcoming Encounters Date Type Department Care Team (Late st Contact Info) Description 06/29/2024 3:00 PM EDT Telemedicine Neurology, [place] [facility] [address] [place] [address] Chung Santos MD [address] [place] [address] 06/30/2024 2:00 PM EDT Telemedicine Psychology [facility] [address] [place] [address] Telma Tyson, FLATBED PRESS OPERATOR [address] [place] [address] 07/09/2024 2:30 PM EDT Hospital Encounter ENDO [facility], Endoscopy Room [facility] [address] [place] [address] Kurtis Bone MD [address] [place] [address] 07/09/2024 2:30 PM EDT - 07/09/2024 3:00 PM EDT Surgery ENDO [facility], Endoscopy Room [facility] [address] [place] [phone] Kurtis Bone MD [address] [place] [address] COLONOSCOPY FLEXIBLE PROXIMAL DIAGNOSTIC 07/14/2024 3:00 PM EDT Office Visit Neurology [facility] [place] [address] [place] [address] Ekta Carter CRNP [address] [place] [address] 07/19/2024 2:30 PM EDT Telemedicine Psychiatry [address] [place] [place] [address] [place] [address] Kimi rBo MD [address] [place] [address] 07/21/2024 3:00 PM EDT Office Visit Urology, [facility] 132 [place] [address] Arturo Ewing MD [address] [place] [address] 09/01/2024 2:00 PM EST Office Visit [facility] [address] [place] [phone] Edu Torre MD [address] [place] [address] 09/17/2024 2:00 PM EST Office Visit Audiology [facility] 132 [facility] [place] [address] Zonia Marvin Au.D. 132 [facility] [place] [address] Scheduled Procedures Name Priority Associated Diagnoses Date/Ti me COLONOSCOPY FLEXIBLE PROXIMAL DIAGNOSTIC Recall Adenomatous polyp of colon, unspecified part of colon Fecal occult blood test positive 07/09/2024 2:30 PM EDT Health Maintenance Due Date Last Done Comments Cologuard 1998 Colonoscopy 1998 Sigmoidoscopy 1998 Adult Wellness Visit 2019 Mammogram 02/15/2024 02/14/2023, 02/14/2023 COVID-19 Vaccine (3 - 2023-2 5 season) 2024 11/20/2020, 10/23/2020 Influenza Vaccine (FLU shot) (#1) 2024 DXA Scan 01/27/2025 01/27/2023 Colorectal Cancer Screening 05/26/2025 Fecal Occult Blood Test 05/26/2025 05/26/20 24, 08/29/2022, 08/29/2022 Depression Monitoring 06/10/2025 06/10/2024 Lipid Panel 08/13/2027 08/13/2022 VITAMIN D LEVEL ONCE IN A LIFETIME-USE SMARTSET# [id number] Completed 01/27/2023, 08/13/2022 Pneumococcal Vaccine: 65+ Years [...] filedocumented as of this encounter Care Teams Awning Maker Relationship Specialty Start Date End Date January, Edu Camacho MD [address] [place] [address] PCP - General Family Medicine 07/30/22 documented as of this encounter
--- OUTSIDE RECORDS SUMMARY | 2024-08-28 14:37 | External Medical Summary | Summary of Care ---
Author Name Unknown Organization [facility] Address [address] [place] [address] Phone [phone] Care Team Providers Care Respiratory Technician Name Role Phone Edu Torre MD Primary Care Provider [phone] Reason for Visit * Reason Comments Medication Refill Encounter Details Date Type Department Care Team (Late st Contact Info) Description 06/25/2024 Refill Psychiatry, [address] [address] Vikki Junior MD [address] [place] [address] Bipolar I disorder, most recent episode depressed (HCC) Allergies Active Allergy Reactions Criticality Noted Date Comments Prochlorperazine Other (Please comment) Medium 07/30/2022 Generalized weakness Morphine And Codeine Nausea/vomiting,Oth er (Please comment) Medium 07/30/2022 Room spinning as well documented as of this encounter (statuses as of 06/25/2024) Medications Medication Sig Dispensed Refills Start Date [...] night at bedtime. 30 Tablet 4 Active ARIPiprazole 15 MG Oral Tablet (Abilify)Indications :Bipolar I disorder, most recent episode depressed (HCC) Take 1 Tablet by mouth every night at bedtime. 30 Tablet 4 06/25/20 24 Discontinu ed(Refill) documented as of this encounter (statuses as of 06/25/2024) Active Problems Problem Noted Date Diagnosed Date [...] as of this encounter (statuses as of 06/25/2024) Resolved Problems Problem Noted Date Diagnosed Date Resolved Date Bipolar disorder 07/30/2022 11/15/2022 Overview: More recent.specified code listed on PL documented as of this encounter (statuses as of 06/25/2024) Immunizations Name Administration Dates Next Due Pneumococcal [...] encounter Miscellaneous Notes * Telephone Encounter - Guy Chung CRNP - 06/25/2024 9:19 AM EDTSigned Prescriptions: Disp Refills ARIPiprazole 15 MG Oral Tablet (Abilify) 30 Tab*0 Sig: Take 1 Tablet by mouth every night at bedtime.Authorizing Provider: GUY CHUNG documented in this encounter Plan of Treatment Upcoming Encounters Date Type Department Care Team (Late st Contact Info) Description 06/29/2024 3:00 PM EDT Telemedicine Neurology, [place] [address] [place] [address] [place] [address] Chung Santos MD [address] [place] [address] [place] [id number] 06/30/2024 2:00 PM EDT Telemedicine Psychology [facility] [address] [place] [address] Telma Tyson, LAWN CARETAKER [address] [place] [address] 07/09/2024 2:30 PM EDT Hospital Encounter ENDO [facility], Endoscopy Room [facility] [address] [place] [address] Kurtis Bone MD [address] [place] [address] 07/09/2024 2:30 PM EDT - 07/09/2024 3:00 PM EDT Surgery ENDO [facility], Endoscopy Room [facility] [address] [place] [address] Kurtis Bone MD [address] [place] [address] COLONOSCOPY FLEXIBLE PROXIMAL DIAGNOSTIC 07/14/2024 3:00 PM EDT Office Visit Neurology N[address] [place] [address] Ekta Carter, DEWAYNE [address] [place], [place] [phone] 07/19/2024 2:30 PM EDT Telemedicine Psychiatry Nhi Arteaga [address] [place] [address] Kimi Bro MD [address] [place] [address] 07/21/2024 3:00 PM EDT Office Visit Urology, [facility] [address] [place] [address] Arturo Ewing MD [address] [place] [address] 09/01/2024 2:00 PM EST Office Visit [facility] [address] [place] [phone] JanuaryEdu MD [address] [place], [place] [phone] 09/17/2024 2:00 PM EST Office Visit Audiology [facility] [address] [place] [address] Zonia Marvin Au.D. [address] [place] [address] Scheduled Procedures Name Priority Associated Diagnoses Date/Ti [...] D LEVEL ONCE IN A LIFETIME-USE SMARTSET# [id number] Completed 01/27/2023, 08/13/2022 Pneumococcal Vaccine: 65+ Years [...] contents documented in this encounter Care Teams Respiratory Technician Relationship Specialty Start Date End Date January, Edu Camacho MD [address] [place] [address] PCP - General Family Medicine 07/30/22 documented as of this encounter
--- OUTSIDE RECORDS SUMMARY | 2024-08-28 14:37 | External Medical Summary | Summary of Care ---
Author Name Unknown Organization [facility] Address [address] [place] [address] Phone [phone] Care Team Providers Care Tailing Machine Operator Name Role Phone Edu Torre MD Primary Care Provider [phone] Reason for Visit * Reason Onset Date Comments Med Request 06/14/2024 Encounter Details Date Type Department Care Team (Late st Contact Info) Description 06/14/2024 Telephone Urogynecology [facility] [address] [place] [address] Shola Peñaloza MD [address] [place] [address] Med Request Allergies Active Allergy Reactions Criticality [...] encounter Miscellaneous Notes * Telephone Encounter - Ludmila Gonzáles CPhT - 06/23/2024 12:04 PM EDT Transferred to [facility] Line. Thank you, Ludmila Gonzáles Human Capital Analyst [facility] ([facility]) 06/23/2024, 12:05 PM * Telephone Encounter - Alyssa Pascal PHARM Tech - 06/14/2024 4:12 PM EDT Pt called asking for myrbetriq. Pt said she is out of rx. Called pharmacy and they said they filledit on 05/08 so its too soon to fill. Insurance will cover rx on 07/24. Tried to contact pt to advise and check how she is taking rx but pt didn't answer. LMOVM. Thanks, Alyssa Pascal Human Capital Analyst [facility] ([facility]) 06/14/2024,4:13 PM documented in this encounter Plan of Treatment Upcoming Encounters Date Type Department Care Team (Late st Contact Info) Description 06/29/2024 3:00 PM EDT Telemedicine Neurology, [place] [address] [place] [address] Chung Santos MD [address] [place] [address] 06/30/2024 2:00 PM EDT Telemedicine Psychology [facility] [address] [place] [address] Telma Tyson, 4 H YOUTH DEVELOPMENT SPECIALIST [address] [place] [address] 07/09/2024 2:30 PM EDT Hospital Encounter [facility]O [facility], Endoscopy Room [facility] [address] [place] [phone] Kurtis Bone MD [address] [place] [address] 07/09/2024 2:30 PM EDT - 07/09/2024 3:00 PM EDT Surgery ENDO [facility], Endoscopy Room [facility] [address] [place] [address] Kurtis Bone MD [address] [place] [address] COLONOSCOPY FLEXIBLE PROXIMAL DIAGNOSTIC 07/14/2024 3:00 PM EDT Office Visit Neurology N[address] [place] [address] Ekta Carter CRNP [address] [facility] [place] [address] 07/19/2024 2:30 PM EDT Telemedicine Psychiatry Nhi Ar[address] [address] [place] [address] Kimi Bro MD [address] [place] [address] 07/21/2024 3:00 PM EDT Office Visit Urology, [facility] 132 [facility] [place] [address] Arturo Ewing MD [address] [facility] [place] [address] 09/01/2024 2:00 PM EST Office Visit [facility] [address] [place] [phone] JanuaryEdu MD [address] [place], [place] [phone] 09/17/2024 2:00 PM EST Office Visit Audiology [facility] 132 [facility] [place] [address] Zonia Marvin Au.D. 132 [place] [address] Scheduled Procedures Name Priority Associated Diagnoses Date/Ti [...] D LEVEL ONCE IN A LIFETIME-USE SMARTSET# [id number] Completed 01/27/2023, 08/13/2022 Pneumococcal Vaccine: 65+ Years [...] filedocumented as of this encounter Care Teams Tailing Machine Operator Relationship Specialty Start Date End Date January, Edu Camacho MD [address] [place] [address] PCP - General Family Medicine 07/30/22 documented as of this encounter
--- OUTSIDE RECORDS SUMMARY | 2024-08-28 14:37 | External Medical Summary | Summary of Care ---
Author Name Unknown Organization [facility] Address [address] [facility] [place] [address] Phone [phone] Care Team Providers Care Ham Clerk Name Role Phone Edu Torre MD Primary Care Provider [phone] Reason for Visit * Reason Onset Date Comments Appointment 06/29/2024 Today appointmen t Encounter Details Date Type Department Care Team (Late st Contact Info) Description 06/29/2024 Telephone Access Center, [place] [address] [facility] *DO NOT REMOVE THIS DEPARTMENT* [place] [phone] Sam Isidro MD [address] [place] [address] [place] [address] Appointment (Today [...] encounter Miscellaneous Notes * Telephone Encounter - Charlotte Berrios OSA [...] Phone number for nurse to call back: [phone] documented in this encounter Plan of Treatment Upcoming Encounters Date Type Department Care Team (Late st Contact Info) Description 06/30/2024 2:00 PM EDT Telemedicine Psychology [facility] [address] [place] [address] Telma Tyson, JOB SETTER [address] [place] [address] 07/09/2024 2:30 PM EDT Hospital Encounter [facility], Endoscopy Room [facility] [address] [place] [address] Kurtis Bone MD [address] [place] [address] 07/09/2024 2:30 PM EDT - 07/09/2024 3:00 PM EDT Surgery [facility], Endoscopy Room [facility] [address] [place] [phone] Kurtis Bone MD [address] [place] [address] COLONOSCOPY FLEXIBLE PROXIMAL DIAGNOSTIC 07/14/2024 3:00 PM EDT Office Visit Neurology Nhi [address] [place] [address] Ekta Carter, FERRY TERMINAL SUPERVISOR [address] [place], [place] [phone] 07/19/2024 2:30 PM EDT Telemedicine Psychiatry [facility] [address] [place] [address] Kimi Bro MD [address] [place] [address] 07/21/2024 3:00 PM EDT Office Visit Urology, [facility] [address] [place] [address] Arturo Ewing MD [address] [place] [address] 09/01/2024 2:00 PM EST Office Visit [facility] [address] [facility] [phone] Edu Torre MD [address] [place] [facility] [place] [address] 09/17/2024 2:00 PM EST Office Visit Audiology [facility] [address] [place] [address] Zonia Marvin Au.D. [address] [place] [address] Scheduled Procedures Name Priority Associated Diagnoses Date/Ti [...] D LEVEL ONCE IN A LIFETIME-USE SMARTSET# [id number] Completed 01/27/2023, 08/13/2022 Pneumococcal Vaccine: 65+ Years [...] filedocumented as of this encounter Care Teams Ham Clerk Relationship Specialty Start Date End Date January, Edu Camacho MD [address] [place] [address] PCP - General Family Medicine 07/30/22 documented as of this encounter
--- OUTSIDE RECORDS SUMMARY | 2024-08-28 14:37 | External Medical Summary | Summary of Care ---
Author Name Unknown Organization [facility] Address [address] [place] [address] Phone [phone] Care Team Providers Care Uniform Cap Operator Name Role Phone Andrés Nguyen MD Primary Care Provider [phone] Reason for Visit * Reason Comments Medication Refill Encounter Details Date Type Department Care Team (Late st Contact Info) Description 07/02/2024 Refill [facility] [address] [place] [address] Andrés Nguyen MD [address] [place] [address] Lumbar radiculopathy Allergies Active Allergy Reactions Criticality Noted Date Comments Prochlorperazine Other (Please comment) Medium 07/30/2022 Generalized weakness Morphine And Codeine Nausea/vomiting,Oth er (Please comment) Medium 07/30/2022 Room spinning as well documented as of this encounter (statuses as of 07/05/2024) Medications Medication Sig Dispensed Refills Start Date [...] differently:70 mg Oral QWEEK,SATURDAYS, Reported on 04/19/2024 clonazePAM 0.5 MG Oral Tablet (KlonoPIN)Indication s:Bipolar [...] 120 Tablet 4 07/02/20 24 Discontinu ed(Refill) documented as of this encounter (statuses as of 07/05/2024) Active Problems Problem Noted Date Diagnosed Date [...] as of this encounter (statuses as of 07/05/2024) Resolved Problems Problem Noted Date Diagnosed Date Resolved Date Bipolar disorder 07/30/2022 11/15/2022 Overview: More recent.specified code listed on PL documented as of this encounter (statuses as of 07/05/2024) Immunizations Name Administration Dates Next Due Pneumococcal [...] Telephone Encounter - Andrés Nguyen MD - 07/05/2024 9:27 AM EDTSigned Prescriptions: Disp Refills HYDROcodone-Acetaminophen 5-325 MG Oral Ta*120 Ta*0 Sig: Take 1 Tablet by mouth every 6 hours as needed for severe pain Authorizing Provider: ANDRÉS NGUYEN * Telephone Encounter - Shola Singh [facility] - 07/05/2024 9:01 AM EDT Pending Prescriptions: Disp Refills HYDROcodone-Acetaminophen 5-325 MG Oral Ta*120 Ta*0 Sig: Take 1 Tablet by mouth every 6 hours as needed for severe pain * Telephone Encounter - Shola Sinhg [facility] - 07/05/2024 9:00 AM EDT I have reviewed the patients controlled substance dispensing history in the Prescription Drug Monitoring Program in compliance with the [facility] regulations before prescribing a controlled substance. PDMP checked on 07/05/2024. Pending Prescriptions: Disp Refills HYDROcodone-Acetaminophen 5-325 MG Oral T*120 Ta*0 Sig: Take 1 Tablet by mouth every 6 hours as needed for severe pain Last Visit: 06/02/2024 (in office), 08/27/2022 (telemedicine) Next Visit: 09/01/2024 Date medication was last filled: 05/31/24 Date medication is due for refill: 06/28/24 Pharmacy: [facility] Is this request for a [...] on the medication information provided and from [facility]: Please note hydrocodone and hydrocodone metabolite, dihydrocodeine, [...] upon request. Please approve if appropriate. Thanks, Shola Singh, PharmD Clinical Pharmacist [facility] ([facility]) [phone] 07/05/2024, 9:00 AM documented in this encounter Plan of Treatment Upcoming Encounters Date Type Department Care Team (Late st Contact Info) Description 07/09/2024 2:30 PM EDT Hospital Encounter ENDO OSS[facility], Endoscopy Room [facility] [address] [place] [phone] Kurtis Bone MD [address] [place] [address] 07/09/2024 2:30 PM EDT - 07/09/2024 3:00 PM EDT Surgery ENDO O[facility], Endoscopy Room [facility] [address] [place] [phone] Kurtis Bone MD [address] [place] [address] COLONOSCOPY FLEXIBLE PROXIMAL DIAGNOSTIC 07/19/2024 2:30 PM EDT Telemedicine Psychiatry [facility] [place] [address] [place] [address] Kimi Bro MD [address] [place] [address] 07/21/2024 3:00 PM EDT Office Visit Urology, [facility] 132 [facility] [place] [address] Arturo Ewing MD [address] [place] [address] 08/04/2024 3:00 PM EST Telemedicine Psychology [facility] 132 [place] [address] Telma Tyson, [facility] 132 [place] [address] 08/20/2024 3:00 PM EST Office Visit Neurology [facility] 200 [facility] [place] [address] Ekta Carter, [employer]SEM[employer] [address] [place], [place] [address] 09/01/2024 2:00 PM EST Office Visit [facility] [address] [place] [address] Andrés Nguyen MD [address] [place] [address] 09/17/2024 2:00 PM EST Office Visit Audiology [facility] 132 [facility] [place] [address] Zonia Marvin Au.D. 132 [facility] [place] [address] Scheduled Procedures Name Priority Associated Diagnoses Date/Ti [...] D LEVEL ONCE IN A LIFETIME-USE SMARTSET# [id number] Completed 01/27/2023, 08/13/2022 Pneumococcal Vaccine: 65+ Years [...] contents documented in this encounter Care Teams Uniform Cap Operator Relationship Specialty Start Date End Date January, Andrés Camacho MD [address] [place] [address] PCP - General Family Medicine 07/30/22 documented as of this encounter
--- OUTSIDE RECORDS SUMMARY | 2024-08-28 14:37 | External Medical Summary | Summary of Care ---
Author Name Unknown Organization [facility] Address [address] [place] [address] Phone [phone] Care Team Providers Care Dye Boarding Machine Operator Name Role Phone Edu Torre MD Primary Care Provider [phone] Reason for Visit * Reason Comments Return Neuro Encounter Details Date Type Department Care Team (Late st Contact Info) Description 06/29/2024 3:00 PM EDT Telemedicine Neurology, [place] [facility] [address] [place] [address] Chung Santos MD [address] [place] [address] Memory changes* Allergies Active Allergy Reactions Criticality Noted Date [...] for ages 0-17 years) Not on file 09 / Food Insecurity Answer Date Recorded Do you [...] as of this encounter Progress Notes * Ekta Carter CRNP - 06/29/2024 3:12 PM EDT I attempted numerous times to connect with patient via televideo and by telephone and unable to reach patient. I left a voicemail for patient to contact office as appointment will need to be rescheduled. documented in this encounter Plan of Treatment Upcoming Encounters Date Type Department Care Team (Late st Contact Info) Description 06/30/2024 2:00 PM EDT Telemedicine Psychology [facility] [address] [place] [address] Telma Tyson LCSW [address] [address] 07/09/2024 2:30 PM EDT Hospital Encounter ENDO [facility], Endoscopy Room [facility] [address] [place] [phone] Kurtis Bone MD [address] [address] 07/09/2024 2:30 PM EDT - 07/09/2024 3:00 PM EDT Surgery ENDO [facility], Endoscopy Room [facility] 132 [facility] [place] [phone] Kurtis Bone MD 132 [facility] [place] [address] COLONOSCOPY FLEXIBLE PROXIMAL DIAGNOSTIC 07/14/2024 3:00 PM EDT Office Visit Neurology [address] [place] [address] Ekta Carter, [place] [address] [place] [address] 07/19/2024 2:30 PM EDT [facility] [address] [place] [address] Kimi Bro MD [address] [place] [address] 07/21/2024 3:00 PM EDT Office Visit Urology, [facility] 132 [facility] [place] [address] Arturo Ewing MD 27 [place] [address] 09/01/2024 2:00 PM EST Office Visit [facility] [address] [place] [address] Edu Torre MD [address] [place] [address] 09/17/2024 2:00 PM EST Office Visit Audiology [facility] 132 [facility] [place] [address] Zonia Marvin Au.D. 132 [facility] [place] [address] Scheduled Procedures Name Priority Associated Diagnoses Date/Ti [...] D LEVEL ONCE IN A LIFETIME-USE SMARTSET# [id number] Completed 01/27/2023, 08/13/2022 Pneumococcal Vaccine: 65+ Years [...] of this encounter Visit Diagnoses Diagnosis Memory changes- Primary Memory loss Adenomatous polyp of colon, unspecified part of colon Fecal occult blood test positive Nonspecific abnormal finding in stool contents documented in this encounter Care Teams Dye Boarding Machine Operator Relationship Specialty Start Date End Date January, Edu Camacho MD [address] [place] [address] PCP - General Family Medicine 07/30/22 documented as of this encounter
--- OUTSIDE RECORDS SUMMARY | 2024-08-28 14:38 | External Medical Summary | Summary of Care ---
Author Name Unknown Organization [facility] Address [address] [place] [address] Phone [phone] Care Team Providers Care Claims Correspondence Clerk Name Role Phone Edu Torre MD Primary Care Provider [phone] Reason for Visit * Reason Onset Date Comments Test Results 06/07/2024 Stool test Encounter Details Date Type Department Care Team (Late st Contact Info) Description 06/07/2024 Telephone [facility] [address] [place] [address] Edu Torre MD [address] [place] [address] Test Results (Stool test) Allergies Active Allergy Reactions Criticality Noted Date Comments Prochlorperazine Other (Please comment) Medium 07/30/2022 Generalized weakness Morphine And Codeine Nausea/vomiting,Oth er (Please comment) Medium 07/30/2022 Room spinning as well documented as of this encounter (statuses as of 06/07/2024) Medications Medication Sig Dispensed Refills Start Date [...] differently:70 mg Oral QWEEK,SATURDAYS, Reported on 04/19/2024 DULoxetine HCl 30 MG Oral Capsule Delayed Release Particles (Cymbalta)Indications :EVANS (generalized anxiety disorder),Panic disorder Take 1 Capsule by mouth in the morning and 1 Capsule before bedtime. 180 Capsule 05/07/2024 Active DULoxetine HCl 20 MG Oral Capsule Delayed Release Particles (Cymbalta)Indications :EVANS (generalized anxiety disorder),Bipolar I disorder, most recent episode depressed (HCC) Take 1 Capsule by mouth every night at bedtime. With 30 mg capsule 90 Capsule 05/07/2024 Active ARIPiprazole 15 MG Oral Tablet (Abilify)Indications: Bipolar I disorder, most recent episode depressed (HCC) Take 1 Tablet by mouth every night at bedtime. 30 Tablet 05/26/2024 Active HYDROcodone-Acetamino phen 5-325 MG Oral TabletIndications:Lum [...] the morning. 90 Tablet 3 06/04/2024 Active documented as of this encounter (statuses as of 06/07/2024) Active Problems Problem Noted Date Diagnosed Date [...] as of this encounter (statuses as of 06/07/2024) Resolved Problems Problem Noted Date Diagnosed Date Resolved Date Bipolar disorder 07/30/2022 11/15/2022 Overview: More recent.specified code listed on PL documented as of this encounter (statuses as of 06/07/2024) Immunizations Name Administration Dates Next Due Pneumococcal [...] Answer Date Recorded PHQ Adult Total Score 23 05/12/2024 Hunger Vital Sign Answer Date Recorded Within [...] Telephone Encounter - Edu Torre MD - 06/07/2024 5:34 PM EDT Fecal occult blood test positive. Patient should have colonoscopy completed given positive result. Will place order if she is agreeable. Edu Torre MD * Telephone Encounter - Leila Garcia LPN - 06/07/2024 12:52 PM EDT Please see encounter from 06/02/2024 as well. * Telephone Encounter - Tyrone Cedillo OSA - 06/07/2024 12:02 PM EDT Reason for patient's call: patient received text to call nurse regarding stool results Caller was transferred to at the nurse line. Could not reach nurse Patient needs call to review test results from 05.26.24 Was not discussed at recent visit (06.02.24) Did receive a text/letter stating need to contact office. documented in this encounter Plan of Treatment Upcoming Encounters Date Type Department Care Team (Late st Contact Info) Description 06/10/2024 12:30 PM EDT Telemedicine Psychology [facility] [address] [place] [address] Telma Tyson, [facility] [address] [place] [address] 06/21/2024 2:00 PM EDT [facility] [address] [place] [address] Kimi Bro MD [address] [place] [address] 06/23/2024 2:00 PM EDT Office Visit [facility] [address] [place] [phone] Edu Torre MD [address] [place] [address] 06/29/2024 3:00 PM EDT Telemedicine Neurology, [place] [facility] [address] [place] [address] Chung Santos MD [address] [place] [address] 07/14/2024 3:00 PM EDT Office Visit Neurology [address] [place] [address] Ekta Carter CRNP [address] [facility] [place] [address] 07/21/2024 3:00 PM EDT Office Visit Urology, [facility] [address] [place] [phone] Arturo Ewing MD [address] [place] [address] 09/01/2024 2:00 PM EST Office Visit [facility] [address] [place] [address] Edu Torre MD [address] [place] [address] 09/17/2024 2:00 PM EST Office Visit Audiology [facility] [address] [place] [address] Zonia Marvin Au.D. [address] [place] [address] Scheduled Procedures Name Priority Associated Diagnoses Date/Ti me COLONOSCOPY FLEXIBLE PROXIMAL DIAGNOSTIC Recall Adenomatous polyp of colon, unspecified part of colon Gastroesophageal reflux disease with esophagitis without hemorrhage ESOPHAGOGASTRODUODENOSCOPY ( EGD), FLEXIBLE, TRANSORAL, DIAGNOSTIC Recall Adenomatous polyp of colon, unspecified part of colon Gastroesophageal reflux disease with esophagitis without hemorrhage Health Maintenance Due Date Last Done Comments Cologuard 1998 Colonoscopy 1998 Sigmoidoscopy 1998 Adult Wellness Visit 2019 Mammogram 02/15/2024 02/14/2023, 02/14/2023 COVID-19 Vaccine (3 - 2023-2 5 season) 2024 11/20/2020, 10/23/2020 Influenza Vaccine (FLU shot) (#1) 2024 DXA Scan 01/27/2025 01/27/2023 Depression Monitoring 05/12/2025 05/12/2024 Colorectal Cancer Screening 05/26/2025 Fecal Occult Blood Test 05/26/2025 05/26/20 24, 08/29/2022, 08/29/2022 Lipid Panel 08/13/2027 08/13/2022 VITAMIN D LEVEL ONCE IN A LIFETIME-USE SMARTSET# [id number] Completed 01/27/2023, 08/13/2022 Pneumococcal Vaccine: 65+ Years [...] filedocumented as of this encounter Care Teams Claims Correspondence Clerk Relationship Specialty Start Date End Date January, Edu Camacho MD [address] [place] [address] PCP - General Family Medicine 07/30/22 documented as of this encounter
--- OUTSIDE RECORDS SUMMARY | 2024-08-28 14:38 | External Medical Summary | Summary of Care ---
Author Name Unknown Organization [facility] Address [address] [place] [address] Phone [phone] Care Team Providers Care Workflow Developer Name Role Phone Edu Torre MD Primary Care Provider [phone] Reason for Visit * Reason Onset Date Comments Test Results 06/07/2024 Stool test Encounter Details Date Type Department Care Team (Late st Contact Info) Description 06/07/2024 Telephone [facility] [address] [place] [address] Edu Torre MD [address] [place] [address] Test Results (Stool test) Allergies Active Allergy Reactions Criticality Noted Date Comments Prochlorperazine Other (Please comment) Medium 07/30/2022 Generalized weakness Morphine And Codeine Nausea/vomiting,Oth er (Please comment) Medium 07/30/2022 Room spinning as well documented as of this encounter (statuses as of 06/08/2024) Medications Medication Sig Dispensed Refills Start Date [...] as of this encounter (statuses as of 06/08/2024) Active Problems Problem Noted Date Diagnosed Date [...] as of this encounter (statuses as of 06/08/2024) Resolved Problems Problem Noted Date Diagnosed Date Resolved Date Bipolar disorder 07/30/2022 11/15/2022 Overview: More recent.specified code listed on PL documented as of this encounter (statuses as of 06/08/2024) Immunizations Name Administration Dates Next Due Pneumococcal [...] encounter Miscellaneous Notes * Telephone Encounter - Ivette Verduzco OSA - 06/08/2024 11:25 AM EDT Scheduled 07/09/24 ESTER Simmons 06/08/2024 11:25 AM * Telephone Encounter - Hussein Roach OSA - 06/08/2024 9:04 AM EDT Please assist with scheduling * Telephone Encounter - Edu Torre MD [...] Description 06/10/2024 12:30 PM EDT Telemedicine Psychology [facility] [address] [place] [address] Telma Tyson, [facility] [address] [place] [address] 06/21/2024 2:00 PM EDT Telemedicine Psychiatry [facility] [address] [place] [address] Kimi Bro MD [address] [place] [address] 06/23/2024 2:00 PM EDT Office Visit [facility] [address] [place] [address] JanuaryEdu MD [address] [place] [address] 06/29/2024 3:00 PM EDT Telemedicine Neurology, [place] [facility] [address] [place] [phone] Chung Santos MD [address] [place] [address] [place] [address] 07/09/2024 2:30 PM EDT Hospital Encounter ENDO [facility], Endoscopy Room [facility] [address] [place] [phone] Kurtis Bone MD [address] [place] [address] 07/09/2024 2:30 PM EDT - 07/09/2024 3:00 PM EDT Surgery ENDO [facility], Endoscopy Room [facility] [address] [place] [phone] Kurtis Bone MD [address] [place] [address] COLONOSCOPY FLEXIBLE PROXIMAL DIAGNOSTIC 07/14/2024 3:00 PM EDT Office Visit Neurology [address] [place] [address] Ekta Carter CRNP [address] [facility] [place] [address] 07/21/2024 3:00 PM EDT Office Visit Urology, [facility] 132 [facility] [place] [address] Arturo Ewing MD [address] [place] [address] 09/01/2024 2:00 PM EST Office Visit [facility] [address] [place] [address] Edu Torre MD [address] [place] [address] 09/17/2024 2:00 PM EST Office Visit Audiology [facility] [address] [place] [address] Zonia Marvin Au.D. [address] [place] [address] Scheduled Procedures Name Priority Associated Diagnoses Date/Ti me COLONOSCOPY FLEXIBLE PROXIMAL DIAGNOSTIC Recall Adenomatous polyp of colon, unspecified part of colon Fecal occult blood test positive 07/09/2024 2:30 PM EDT Health Maintenance Due Date Last Done Comments Cologuard 1998 Colonoscopy 1998 Sigmoidoscopy 1998 Adult Wellness Visit 2019 Mammogram 02/15/2024 02/14/2023, 02/14/2023 COVID-19 Vaccine (2023- 5 season) 2024 11/20/2020, 10/23/2020 Influenza Vaccine (FLU shot) (#1) 2024 DXA Scan 01/27/2025 01/27/2023 Depression Monitoring 05/12/2025 05/12/2024 Colorectal Cancer Screening 05/26/2025 Fecal Occult Blood Test 05/26/2025 05/26/20 24, 08/29/2022, 08/29/2022 Lipid Panel 08/13/2027 08/13/2022 VITAMIN D LEVEL ONCE IN A LIFETIME-USE SMARTSET# [id number] Completed 01/27/2023, 08/13/2022 Pneumococcal Vaccine: 65+ Years [...] filedocumented as of this encounter Care Teams Workflow Developer Relationship Specialty Start Date End Date January, Edu Camacho [facility] [address] [facility] [address] PCP - General Family Medicine 07/30/22 documented as of this encounter
--- OUTSIDE RECORDS SUMMARY | 2024-08-28 14:38 | External Medical Summary | Summary of Care ---
Author Name Unknown Organization [facility] Address [address] [place] [address] Phone [phone] Care Team Providers Care Kitchen Stewardess Name Role Phone Edu Torre MD Primary Care Provider [phone] Reason for Visit * Reason Onset Date Comments Test Results 06/07/2024 Stool test Encounter Details Date Type Department Care Team (Late st Contact Info) Description 06/07/2024 Telephone [facility] [address] [place] [address] Edu Torre MD [address] [place] [address] Test Results (Stool test) Allergies [...] encounter Miscellaneous Notes * Telephone Encounter - Hussein Roach OSA [...] needs call to review test results from 9.4.24 Was not discussed at recent visit (9.11.24) Did receive a text/letter stating need to contact office. documented in this encounter Plan of Treatment Upcoming Encounters Date Type Department Care Team (Late st Contact Info) Description 06/10/2024 12:30 PM EDT Telemedicine Psychology [facility] [address] [place] [address] Telma Tyson, [facility] [address] [place] [address] 06/21/2024 2:00 PM EDT Telemedicine Psychiatry [place] [facility] [address] [place] [address] Kimi Bro MD [address] [place] [address] 06/23/2024 2:00 PM EDT Office Visit [facility] [address] [place] [phone] Edu Torre MD [address] [place] [address] 06/29/2024 3:00 PM EDT Telemedicine Neurology, [place] [facility] [address] [place] [address] Chung Santos MD [address] [place] [address] 07/14/2024 3:00 PM EDT Office Visit Neurology [address] [place] [address] Ekta Carter CRNP [address] [place] [address] 07/21/2024 3:00 PM EDT Office Visit Urology, [facility] 132 [place] [address] Arturo Ewing MD [address] [place] [address] 09/01/2024 2:00 PM EST Office Visit [facility] [address] [place] [address] Edu Torre MD [address] [place], [place] [address] 09/17/2024 2:00 PM EST Office Visit Audiology [facility] 132 [place] [address] Zonia Marvin Au.D. [address] [place] [address] Scheduled Procedures Name Priority Associated Diagnoses Date/Ti [...] D LEVEL ONCE IN A LIFETIME-USE SMARTSET# [id number] Completed 01/27/2023, 08/13/2022 Pneumococcal Vaccine: 65+ Years [...] filedocumented as of this encounter Care Teams Kitchen Stewardess Relationship Specialty Start Date End Date January, Edu Camacho MD [address] [place] [address] PCP - General Family Medicine 07/30/22 documented as of this encounter
--- OUTSIDE RECORDS SUMMARY | 2024-08-28 14:38 | External Medical Summary | Summary of Care ---
Author Name Unknown Organization [facility] Address [address] [place] [address] Phone [phone] Care Team Providers Care Protection Agent Name Role Phone Edu Torre MD Primary Care Provider [phone] Reason for Visit * Reason Onset Date Comments Med Request 06/16/2024 Encounter Details Date Type Department Care Team (Late st Contact Info) Description 06/16/2024 Telephone [facility] [address] [place] [address] Edu Torre MD [address] [place] [address] Med Request Allergies Active Allergy Reactions Criticality Noted Date Comments Prochlorperazine Other (Please comment) Medium 07/30/2022 Generalized weakness Morphine And Codeine Nausea/vomiting,Oth er (Please comment) Medium 07/30/2022 Room spinning as well documented as of this encounter (statuses as of 06/16/2024) Medications Medication Sig Dispensed Refills Start Date [...] as of this encounter (statuses as of 06/16/2024) Active Problems Problem Noted Date Diagnosed Date [...] as of this encounter (statuses as of 06/16/2024) Resolved Problems Problem Noted Date Diagnosed Date Resolved Date Bipolar disorder 07/30/2022 11/15/2022 Overview: More recent.specified code listed on PL documented as of this encounter (statuses as of 06/16/2024) Immunizations Name Administration Dates Next Due Pneumococcal [...] encounter Miscellaneous Notes * Telephone Encounter - Alyssa Pascal PHARM Tech - 06/16/2024 2:08 PM EDT Pt calling to request folic acid and sennosides. Informed pt that RX is available at their pharmacy. Pt verbalized understanding and stated they will check with their pharmacy regarding this medication. Thanks, Alyssa Pascal Brewing Director [facility] 06/16/2024,2:12 PM documented in this encounter Plan of Treatment Upcoming Encounters Date Type Department Care Team (Late st Contact Info) Description 06/21/2024 2:00 PM EDT Telemedicine Psychiatry Nhi Arteaga [address] [place] [address] Kimi Bro MD [address] [place] [address] 06/29/2024 3:00 PM EDT Telemedicine Neurology, [place] [facility] [address] [place] [address] Chung Santos MD [address] [place] [address] [place] [address] 06/30/2024 2:00 PM EDT Telemedicine Psychology [facility] [address] [place] [address] Telma Tyson, [facility] [address] [place] [address] 07/09/2024 2:30 PM EDT Hospital Encounter ENDO [facility], Endoscopy Room [facility] [address] [place] [phone] Kurtis Bone MD [address] [place] [address] 07/09/2024 2:30 PM EDT - 07/09/2024 3:00 PM EDT Surgery ENDO [facility], Endoscopy Room [facility] [address] [place] [phone] Kurtis Bone MD [address] [place] [address] COLONOSCOPY FLEXIBLE PROXIMAL DIAGNOSTIC 07/14/2024 3:00 PM EDT Office Visit Neurology [address] [place] [address] Ekta Carter CRNP [address] [facility] [place] [address] 07/21/2024 3:00 PM EDT Office Visit Urology, [facility] [address] [place] [address] Arturo Ewing MD [address] [place] [address] 09/01/2024 2:00 PM EST Office Visit [address] [place] [address] JanuaryEdu MD [address] [place] [address] 09/17/2024 2:00 PM EST Office Visit Audiology [facility] [address] [place] [address] Zonia Marvin Au.D. [address] [place] [address] Scheduled Procedures Name Priority Associated Diagnoses Date/Ti me COLONOSCOPY FLEXIBLE PROXIMAL DIAGNOSTIC Recall Adenomatous polyp of colon, unspecified part of colon Fecal occult blood test positive 07/09/2024 2:30 PM EDT Health Maintenance Due Date Last Done Comments Cologuard 1998 Colonoscopy 1998 Sigmoidoscopy 1998 Adult Wellness Visit 2019 Mammogram 02/15/2024 02/14/2023, 02/14/2023 COVID-19 Vaccine (3 2023-2 5 season) 2024 11/20/2020, 10/23/2020 Influenza Vaccine (FLU shot) (#1) 2024 DXA Scan 01/27/2025 01/27/2023 Colorectal Cancer Screening 05/26/2025 Fecal Occult Blood Test 05/26/2025 05/26/20 24, 08/29/2022, 08/29/2022 Depression Monitoring 06/10/2025 06/10/2024 Lipid Panel 08/13/2027 08/13/2022 VITAMIN D LEVEL ONCE IN A LIFETIME-USE SMARTSET# [id number] Completed 01/27/2023, 08/13/2022 Pneumococcal Vaccine: 65+ Years [...] filedocumented as of this encounter Care Teams Protection Agent Relationship Specialty Start Date End Date January, Edu Camacho MD [address] [place] [id number] PCP - General Family Medicine 07/30/22 documented as of this encounter
--- OUTSIDE RECORDS SUMMARY | 2024-08-28 14:38 | External Medical Summary | Summary of Care ---
Author Name Unknown Organization [facility] Address [address] [place] [address] Phone [phone] Care Team Providers Care Crisis Clinician Name Role Phone Edu Torre MD Primary Care Provider [phone] Reason for Visit * Reason Onset Date Comments Test Results 06/07/2024 Stool test Encounter Details Date Type Department Care Team (Late st Contact Info) Description 06/07/2024 Telephone [facility] [address] [place] [address] Edu Torre MD [address] [place] [address] Test Results (Stool test) Allergies [...] Description 06/10/2024 12:30 PM EDT Telemedicine Psychology [facility] [address] [place] [address] Telma Tyson, [facility] [address] [place] [address] 06/21/2024 2:00 PM EDT [facility] [address] [place] [address] Kimi Bro MD [address] [place] [address] 06/23/2024 2:00 PM EDT Office Visit [facility] [address] [place] [phone] Edu Torre MD [address] [place] [address] 06/29/2024 3:00 PM EDT Telemedicine Neurology, [place] [address] [place] [address] Chung Santos MD [address] [place] [address] 07/14/2024 3:00 PM EDT Office Visit Neurology N[address] [place] [address] Ekta Carter CRNP [address] [facility] [place] [address] 07/21/2024 3:00 PM EDT Office Visit Urology, [facility] [address] [place] [phone] Arturo Ewing MD [address] [place] [address] 09/01/2024 2:00 PM EST Office Visit [facility] [address] [place] [phone] Edu Torre MD [address] [place] [address] 09/17/2024 2:00 PM EST Office Visit Audiology [facility] [address] [place] [address] Zonia Marvin Au.D. [address] [place] [address] Scheduled Procedures Name Priority Associated Diagnoses Date/Ti [...] D LEVEL ONCE IN A LIFETIME-USE SMARTSET# [id number] Completed 01/27/2023, 08/13/2022 Pneumococcal Vaccine: 65+ Years [...] filedocumented as of this encounter Care Teams Crisis Clinician Relationship Specialty Start Date End Date January, Edu Camacho MD [address] [place] [address] PCP - General Family Medicine 07/30/22 documented as of this encounter
--- OUTSIDE RECORDS SUMMARY | 2024-08-28 14:38 | External Medical Summary | Summary of Care ---
Author Name Unknown Organization [facility] Address [address] [place] [address] Phone [phone] Care Team Providers Care Horseshoer Name Role Phone JanuaryEdu MD Primary Care Provider [phone] Reason for Visit * Reason Onset Date Comments Med Request 06/02/2024 Status Check 06/02/2024 Encounter Details Date Type Department Care Team (Late st Contact Info) Description 06/02/2024 Telephone [facility] [address] [place] [address] Edu Torre MD [address] [place] [address] Med Request; Status Check Allergies Active Allergy Reactions Criticality Noted Date [...] the morning. 90 Tablet 3 06/02/2024 Active documented as of this encounter (statuses [...] Encounter - Edu Torre MD - 06/07/2024 5:37 PM EDT Colonoscopy recommended. See separate encounter. Edu Torre MD * Telephone Encounter - Leila Garcia LPN - 06/07/2024 12:47 PM EDT Called and spoke with patient and she states she was just seen and told she did not have a UTI so she is not going to schedule another appointment right now. I informed her if she does have continuing symptoms she should schedule then. Patient states her main concern now is the recent Fecal occult test and what the abnormal results mean and if she needs a prescription for treatment. Patient states no one has reviewed these results with her and what they mean? * Telephone Encounter - Edu Torre MD - 06/04/2024 5:11 PM EDT Patient was not having any fevers, chills, dysuria at time of appointment. UA was not sent for culture due to no symptoms of UTI other than her chronic overactive bladder. If she is having new symptoms, she would need to be seen for repeat UA and culture if appropriate. Edu Torre MD * Telephone Encounter - Lauryn Garcia CPhT - 06/03/2024 5:09 PM EDT Patient states her lab results show she has a UTI and she would like a call back high priority. Thank you, Lauryn Garcia CPhT [employer] [facility] [address] [place] [address], [address] [phone] * Telephone Encounter - Edu Torre MD - 06/02/2024 12:39 PM EDT Patient does not have UTI. Only symptoms she endorsed at the office visit today her chronic overactive bladder. Would not recommend antibiotics at this time. Edu Torre MD * Telephone Encounter - Cori Brooks PHARM Tech - 06/02/2024 11:46 AM EDT Pt called asking if the Will send an antibiotic for her UTI Please advise Thank you, Cori Brooks CPhT [employer] [facility] 06/02/2024,11:47 AM documented in this encounter Plan of Treatment Upcoming Encounters Date Type Department Care Team (Late st Contact Info) Description 06/10/2024 12:30 PM EDT Telemedicine Psychology [facility] [address] [facility] [place] [address] Telma Tyson, [employer] [address] [place] [address] 06/21/2024 2:00 PM EDT Telemedicine Psychiatry [address] [address] [facility] [address] [place] [address] Kimi Bro MD [address] [place] [address] 06/23/2024 2:00 PM EDT Office Visit [facility] [address] [place] [address] JanuaryEdu MD [address] [place] [address] 06/29/2024 3:00 PM EDT Telemedicine Neurology, [place] [address] [place] [address] Chung Santos MD [address] [place] [address] 07/14/2024 3:00 PM EDT Office Visit Neurology [address] [place] [address] Ekta Carter CRNP [address] [facility] [place] [address] 07/21/2024 3:00 PM EDT Office Visit Urology, [facility] [address] [facility] [place] [address] Arturo Ewing MD [address] [place] [address] 09/01/2024 2:00 PM EST Office Visit [facility] [address] [place] [address] JanuaryEdu MD [address] [place] [address] 09/17/2024 2:00 PM EST Office Visit Audiology [facility] [address] [place] [address] Zonia Marvin Au.D. [address] [place] [address] Scheduled Procedures Name Priority Associated Diagnoses Date/Ti [...] D LEVEL ONCE IN A LIFETIME-USE SMARTSET# [id number] Completed 01/27/2023, 08/13/2022 Pneumococcal Vaccine: 65+ Years [...] filedocumented as of this encounter Care Teams Horseshoer Relationship Specialty Start Date End Date January, Edu Camacho MD [address] [place] [address] PCP - General Family Medicine 07/30/22 documented as of this encounter
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
--- OUTSIDE RECORDS SUMMARY | 2024-08-28 14:38 | External Medical Summary | Summary of Care ---
Author Name Unknown Organization [facility] Address [address] [place] [address] Phone [phone] Care Team Providers Care Configuration Management Analyst Name Role Phone Edu Torre MD Primary Care Provider [phone] Reason for Visit * Reason Onset Date Comments Test Results 06/07/2024 Stool test Encounter Details Date Type Department Care Team (Late st Contact Info) Description 06/07/2024 Telephone [facility] [address] [place] [address] Edu Torre MD [address] [place] [address] Test Results (Stool test) Allergies [...] Verduzco OSA - 06/08/2024 11:25 AM EDT [facility] ESTER Simmons 06/08/2024 11:25 AM * Telephone [...] needs call to review test results from 24 Was not discussed at recent visit (06.02.24) Did receive a text/letter stating need to contact office. documented in this encounter Plan of Treatment Upcoming Encounters Date Type Department Care Team (Late st Contact Info) Description 06/10/2024 12:30 PM EDT Telemedicine Psychology [facility] [address] [place] [address] Telma Tyson, [facility] [address] [place] [address] 06/21/2024 2:00 PM EDT Telemedicine Psychiatry [place] [address] [place] [address] Kimi Bro MD [address] [place] [address] 06/23/2024 2:00 PM EDT Office Visit [facility] [address] [place] [address] Edu Torre MD [address] [place] [address] 06/29/2024 3:00 PM EDT Telemedicine Neurology, [place] [address] [place] [id number] Chung Santos MD [address] [place] [address] 07/14/2024 3:00 PM EDT Office Visit Neurology [address] [place] [address] Ekta Carter, DEWAYNE [address] [facility] [place] [address] 07/21/2024 3:00 PM EDT Office Visit Urology, [facility] [address] [place] [address] Arturo Ewing MD [address] [place] [address] 09/01/2024 2:00 PM EST Office Visit [facility] [address] [place] [address] Edu Torre MD [address] [place] [address] 09/17/2024 2:00 PM EST Office Visit Audiology [facility] 132 [place] [address] Zonia Marvin Au.D. [address] [place] [address] Scheduled Procedures Name Priority Associated Diagnoses Date/Ti [...] D LEVEL ONCE IN A LIFETIME-USE SMARTSET# [id number] Completed 01/27/2023, 08/13/2022 Pneumococcal Vaccine: 65+ Years [...] filedocumented as of this encounter Care Teams Configuration Management Analyst Relationship Specialty Start Date End Date January, Edu Camacho MD [address] [place] [address] PCP - General Family Medicine 07/30/22 documented as of this encounter
--- OUTSIDE RECORDS SUMMARY | 2024-08-28 14:38 | External Medical Summary | Summary of Care ---
Author Name Unknown Organization [facility] Address [address] [place] [address] Phone [phone] Care Team Providers Care Engine Buildup Mechanic Name Role Phone Edu Torre MD Primary Care Provider [phone] Reason for Visit * Reason Onset Date Comments Med Request 06/14/2024 Encounter Details Date Type Department Care Team (Late st Contact Info) Description 06/14/2024 Telephone Urogynecology [facility] [address] [place] [address] Shola Peñaloza MD [address] [place] [address] Med Request Allergies Active Allergy Reactions Criticality Noted Date Comments Prochlorperazine Other (Please comment) Medium 07/30/2022 Generalized weakness Morphine And Codeine Nausea/vomiting,Oth er (Please comment) Medium 07/30/2022 Room spinning as well documented as of this encounter (statuses as of 06/14/2024) Medications Medication Sig Dispensed Refills Start Date [...] as of this encounter (statuses as of 06/14/2024) Active Problems Problem Noted Date Diagnosed Date [...] as of this encounter (statuses as of 06/14/2024) Resolved Problems Problem Noted Date Diagnosed Date Resolved Date Bipolar disorder 07/30/2022 11/15/2022 Overview: More recent.specified code listed on PL documented as of this encounter (statuses as of 06/14/2024) Immunizations Name Administration Dates Next Due Pneumococcal [...] pt didn't answer. LMOVM. Thanks, Alyssa Pascal Supervisor [facility] 06/14/2024,4:13 PM documented in this encounter Plan of Treatment Upcoming Encounters Date Type Department Care Team (Late st Contact Info) Description 06/21/2024 2:00 PM EDT Telemedicine Psychiatry [place] [address] [address] [place] [address] Kimi Bro MD [address] [place] [address] 06/29/2024 3:00 PM EDT [facility] [address] [place] [address] Chung Santos MD [address] [place] [address] 06/30/2024 2:00 PM EDT Telemedicine Psychology [facility] [address] [place] [address] Telma Tyson, [facility] [address] [place] [address] 07/09/2024 2:30 PM EDT Hospital Encounter ENDO OSSC, Endoscopy Room [facility] [address] [place] [phone] Kurtis Bone MD [address] [place] [address] 07/09/2024 2:30 PM EDT - 07/09/2024 3:00 PM EDT Surgery ENDO O[facility], Endoscopy Room [facility] [address] [place] [address] Kurtis Bone MD [address] [place] [address] COLONOSCOPY FLEXIBLE PROXIMAL DIAGNOSTIC 07/14/2024 3:00 PM EDT Office Visit Neurology [address] [place] [address] Ekta Carter, DEWAYNE [address] [facility] [place] [address] 07/21/2024 3:00 PM EDT Office Visit Urology, [facility] [address] [place] [address] Arturo Ewing MD [address] [place] [address] 09/01/2024 2:00 PM EST Office Visit [facility] [place] [address] [place] [address] JanuaryEdu MD [address] [place] [address] 09/17/2024 2:00 PM EST Office Visit Audiology [facility] [address] [place] [address] Zonia Marvin Au.D. [address] [place] [address] Scheduled Procedures Name Priority Associated Diagnoses Date/Ti [...] D LEVEL ONCE IN A LIFETIME-USE SMARTSET# [id number] Completed 01/27/2023, 08/13/2022 Pneumococcal Vaccine: 65+ Years [...] filedocumented as of this encounter Care Teams Engine Buildup Mechanic Relationship Specialty Start Date End Date January, Edu Camacho MD [address] [place] [address] PCP - General Family Medicine 07/30/22 documented as of this encounter
--- OUTSIDE RECORDS SUMMARY | 2024-08-28 14:38 | External Medical Summary | Summary of Care ---
Author Name Unknown Organization [facility] Address [address] [place] [address] Phone [phone] Care Team Providers Care Primary Grade Teacher Name Role Phone Edu Torre MD Primary Care Provider [phone] Encounter Details Date Type Department Care Team (Late st Contact Info) Description 06/04/2024 Telephone Neurology, [address] [place] [address] Chung Santos MD [address] [place] [address] Allergies Active Allergy Reactions Criticality Noted Date [...] encounter Miscellaneous Notes * Telephone Encounter - Chung Santos MD - 06/08/2024 7:10 PM EDT It is possible that the vascular disease in her brain could be the cause or a contributor. We need to see the neuropsychology testing to better gauge that possibility. I also need to see her neurologic examination to get a better idea of why she is having the tremors. * Telephone Encounter - Chung Santos MD - 06/04/2024 5:43 PM EDT Staff may update them that the MRI of the Brain showed a little bit of general shrinkage perhaps a bit more in the memory parts of the brain as well as some patchy changes chronically from small blood vessel vascular disease and that is commonly from vascular risks like high cholesterol. I need to see how she looks on her neurologic examination off of brain impairing medications to better gauge how much any of that may be factors and can also decide then if moving forward with neuropsychology testing would help. For my Reference: I personally viewed the report and images of the 05/08/2024 MRI Brain and my impression is that it shows mild global atrophy but perhaps a bit more in the bilateral mesial temporal lobes and some bilateral patchy leukoaraiosis perhaps enough to contribute to a dementia level impairment. * Telephone Encounter - Chung Santos MD - 06/04/2024 8:53 AM EDT Staff let them know overall the labs for memory are okay and as expected but a bit higher on a natural chemical called homocysteine that when elevated is a risk factor for vascular brain health and cofactor for memory problems but is easily addressed by taking folic acid and I will eprescribe folicacid 1 mg daily for you for that. Orders Placed This Encounter Medications Folic Acid 1 MG Oral Tablet Sig: Take 1 Tablet by mouth in the morning. Dispense: 90 Tablet Refill: 3 documented in this encounter Plan of Treatment Upcoming Encounters Date Type Department Care Team (Late st Contact Info) Description 06/10/2024 12:30 PM EDT Telemedicine Psychology [facility] [address] [place] [address] Telma Tyson, [facility] [address] [facility] [place] [address] 06/21/2024 2:00 PM EDT Telemedicine Psychiatry [place] [address] [place] [address] Kimi Bro MD [address] [place] [address] 06/23/2024 2:00 PM EDT Office Visit [facility] [address] [place] [address] Edu Torre MD [address] [place] [address] 06/29/2024 3:00 PM EDT Telemedicine Neurology, [place] [address] [place] [address] [place] [address] Chung Santos MD [address] [place] [address] [place] [address] 07/09/2024 2:30 PM EDT Hospital Encounter ENDO [facility], Endoscopy Room [facility] [address] [place] [phone] Kurtis Bone MD [address] [place] [address] 07/09/2024 2:30 PM EDT - 07/09/2024 3:00 PM EDT Surgery [facility] [place] [phone] Kurtis Bone MD 132 [place] [address] COLONOSCOPY FLEXIBLE PROXIMAL DIAGNOSTIC 07/14/2024 3:00 PM EDT Office Visit Neurology [address] [place] [address] Ekta Carter CRNP [address] [place] [address] 07/21/2024 3:00 PM EDT Office Visit Urology, [facility] [address] [facility] [address] Arturo Ewing MD [address] [place] [address] 09/01/2024 2:00 PM EST Office Visit [facility] [address] [place] [phone] Edu Torre MD [address] [place] [address] 09/17/2024 2:00 PM EST Office Visit Audiology [facility] [address] [place] [address] Zonia Marvin Au.D. [address] [place] [address] Scheduled Procedures Name Priority Associated Diagnoses Date/Ti [...] D LEVEL ONCE IN A LIFETIME-USE SMARTSET# 91177 Completed 01/27/2023, 08/13/2022 Pneumococcal Vaccine: 65+ Years [...] filedocumented as of this encounter Care Teams Primary Grade Teacher Relationship Specialty Start Date End Date January, Edu Camacho MD [address] [facility] [place] [address] PCP - General Family Medicine 07/30/22 documented as of this encounter
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
--- OUTSIDE RECORDS SUMMARY | 2024-08-28 14:38 | External Medical Summary | Summary of Care ---
Author Name Unknown Organization [facility] Address [address] [place] [address] Phone [phone] Care Team Providers Care License Distributor Name Role Phone Edu Torre MD Primary Care Provider [phone] Encounter Details Date Type Department Care Team (Late st Contact Info) Description 06/14/2024 Telephone Gastroenterology, [facility] [address] [place] [address] Kurtis Bone MD [address] [place] [address] Allergies Active Allergy Reactions Criticality Noted Date [...] EDT Telemedicine Psychiatry [place] [address] [place] [address] Kimi Bro MD [address] [place] [address] 06/29/2024 3:00 PM EDT Telemedicine Neurology, [place] Shweta Villa [address] [place] [address] Chung Santos MD [address] [place] [address] 06/30/2024 2:00 PM EDT Telemedicine Psychology [facility] [address] [place] [phone] Telma Tyson, BRIMMING MACHINE OPERATOR [address] [place] [address] 07/09/2024 2:30 PM EDT Hospital Encounter ENDO [facility], Endoscopy Room [facility] [address] [place] [address] Kurtis Bone MD [address] [place] [address] 07/09/2024 2:30 PM EDT - 07/09/2024 3:00 PM EDT Surgery ENDO [facility], Endoscopy Room [facility] [address] [place] [phone] Kurtis Bone MD 132 [facility] [place] [address] COLONOSCOPY FLEXIBLE PROXIMAL DIAGNOSTIC 07/14/2024 3:00 PM EDT Office Visit Neurology N[address] [place] [address] Ekta Carter, STEAM BOX OPERATOR [address] [place] [address] 07/21/2024 3:00 PM EDT Office Visit Urology, [facility] [address] [facility] [place] [address] Arturo Ewing MD [address] [place] [address] 09/01/2024 2:00 PM EST Office Visit [facility] [address] [place] [phone] Edu Torre MD [address] [place] [address] 09/17/2024 2:00 PM EST [facility] [place] [address] Zonia Marvin Au.D. [address] [place] [address] Scheduled Procedures Name Priority Associated Diagnoses Date/Ti [...] D LEVEL ONCE IN A LIFETIME-USE SMARTSET# 85081 Completed 01/27/2023, 08/13/2022 Pneumococcal Vaccine: 65+ Years [...] filedocumented as of this encounter Care Teams License Distributor Relationship Specialty Start Date End Date January, Edu Camacho MD [address] [place] [address] PCP - General Family Medicine 07/30/22 documented as of this encounter
--- OUTSIDE RECORDS SUMMARY | 2024-08-28 14:39 | External Medical Summary | Summary of Care ---
Author Name Unknown Organization [facility] Address [address] [place] [address] Phone [phone] Care Team Providers Care Marketing Representative Name Role Phone Edu Torre MD Primary Care Provider [phone] Reason for Visit * Reason Onset Date Comments Med Request 06/02/2024 Status Check 06/02/2024 Encounter Details Date Type Department Care Team (Late st Contact Info) Description 06/02/2024 Telephone [facility] [address] [place] [address] Edu Torre MD [address] [place] [address] Med Request; Status Check Allergies Active Allergy Reactions Criticality Noted Date Comments Prochlorperazine Other (Please comment) Medium 07/30/2022 Generalized weakness Morphine And Codeine Nausea/vomiting,Oth er (Please comment) Medium 07/30/2022 Room spinning as well documented as of this encounter (statuses as of 06/04/2024) Medications Medication Sig Dispensed Refills Start Date [...] as of this encounter (statuses as of 06/04/2024) Active Problems Problem Noted Date Diagnosed Date Migraine without status migrainosus, not intract able 06/02/2024 Hyperlipidemia 06/02/2024 EVNAS (generalized anxiety disorder) 09/12/2023 Panic disorder 09/12/2023 [...] as of this encounter (statuses as of 06/04/2024) Resolved Problems Problem Noted Date Diagnosed Date Resolved Date Bipolar disorder 07/30/2022 11/15/2022 Overview: More recent.specified code listed on PL documented as of this encounter (statuses as of 06/04/2024) Immunizations Name Administration Dates Next Due Pneumococcal [...] encounter Miscellaneous Notes * Telephone Encounter - Lauryn Garcia CPhT - 06/03/2024 5:09 PM EDT Patient states her lab results show she has a UTI and she would like a call back high priority. Thank you, Lauryn Garcia CPhT Supervisor [employer] III [facility] [address] [place] [address], [place] [phone] * Telephone Encounter - Edu Torre MD [...] Please advise Thank you, Cori Brooks CPhT Supervisor [employer] [facility] 06/02/2024,11:47 AM documented in this encounter Plan of Treatment Upcoming Encounters Date Type Department Care Team (Late st Contact Info) Description 06/10/2024 12:30 PM EDT Telemedicine Psychology [facility] [place] [address] Telma Tyson, HYDROELECTRIC PLANT MAINTAINER [address] [place] [address] 06/21/2024 2:00 PM EDT [facility] [address] [place] [address] Kimi Bro MD [address] [place] [address] 06/23/2024 2:00 PM EDT Office Visit [facility] [address] [place] [address] Edu Torre MD [address] [place] [address] 06/29/2024 3:00 PM EDT Telemedicine Neurology, [place] [facility] [place] [address] Chung Santos MD [address] [place] [address] 07/14/2024 3:00 PM EDT Office Visit Neurology [address] [place] [address] Ekta Carter CRNP [address] [facility] [place] [address] 07/21/2024 3:00 PM EDT Office Visit Urology, [facility] [address] [place] [address] Arturo Ewing MD [address] [place] [address] 09/01/2024 2:00 PM EST Office Visit [facility] [address] [place] [phone] JanuaryEdu MD [address] [place] [address] 09/17/2024 2:00 PM EST Office Visit Audiology [facility] [address] [place] [address] Zonia Marvin Au.D. [address] [place] [address] Scheduled Procedures Name Priority Associated Diagnoses Date/Ti [...] D LEVEL ONCE IN A LIFETIME-USE SMARTSET# [id number] Completed 01/27/2023, 08/13/2022 Pneumococcal Vaccine: 65+ Years [...] filedocumented as of this encounter Care Teams Marketing Representative Relationship Specialty Start Date End Date January, Edu Camacho MD [address] [place] [address] PCP - General Family Medicine 07/30/22 documented as of this encounter
--- OUTSIDE RECORDS SUMMARY | 2024-08-28 14:39 | External Medical Summary | Summary of Care ---
Author Name Unknown Organization [facility] Address [address] [place] [address] Phone [phone] Care Team Providers Care Temple Meat Cutter Name Role Phone Edu Torre MD Primary Care Provider [phone] Reason for Visit * Reason Comments Hospital Follow-Up Patient is here toda y for a hospital visit follow up. Patient states she was in for 5 days.Patient states that she fell last night over a cat toy and hit her chest; patient has also broken a tooth and has a cut on her lower lip, L side.Patient has been having constipation. Patient would like a hydrocodone refill. Encounter Details Date Type Department Care Team (Latest Contact Info) Description 06/02/2024 10:00 AM EDT Office Visit [facility] [address] [place] [phone] Edu Torre MD [address] [place] [address] Fall, initial encounter*; Bipolar I disorder, most recent episode depressed (HCC); Recurrent UTI; Urge incontinence; Chronic, continuous use of opioids; Drug induced constipation; Migraine without status migrainosus, not intractable, unspecified migraine type; Age-related osteoporosis without current pathological fracture; Hyperlipidemia, unspecified hyperlipidemia type Allergies Active Allergy Reactions Criticality Noted Date Comments Prochlorperazine Other (Please comment) Medium 07/30/2022 Generalized weakness Morphine And Codeine Nausea/vomiting,Oth er (Please comment) Medium 07/30/2022 Room spinning as well documented as of this encounter (statuses as of 06/02/2024) Medications Medication Sig Dispensed Refills Start Date [...] 30 mg capsule 90 Capsule 4 Active ARIPiprazole 15 MG Oral [...] the morning. 90 Tablet 3 4 Active Benzonatate 100 MG Oral CapsuleIndications:V iral URI Take 2 Capsules by mouth 3 times a day as needed for Cough. 30 Capsule 1 3 06/02/20 24 Discontinu ed(Medicat ion List Clean Up) documented as of this encounter (statuses as of 06/02/2024) Active Problems Problem Noted Date Diagnosed Date [...] as of this encounter (statuses as of 06/02/2024) Resolved Problems Problem Noted Date Diagnosed Date Resolved Date Bipolar disorder 07/30/2022 11/15/2022 Overview: More recent.specified code listed on PL documented as of this encounter (statuses as of 06/02/2024) Immunizations Name Administration Dates Next Due Pneumococcal [...] Sign Reading Time Taken Comments Blood Pressure 120/78 06/02/2024 9:45 AM EDT Pulse 92 06/02/2024 9:45 AM EDT Temperature 36.3 C (97.3 F) 06/02/2024 9:45 AM ED T Respiratory Rate 16 06/02/2024 9:45 AM EDT Oxygen Saturation 94% 06/02/2024 9:45 AM EDT Inhaled Oxygen Concentration - - Weight 61.1 kg (134 lb 12.8 oz) 06/02/2024 9:45 AM EDT Height 162.6 cm (5' 4") 06/02/2024 9:45 AM EDT Body Mass Index 23.14 06/02/2024 9:45 AM EDT documented in this encounter Progress Notes * Edu Torre MD - 06/02/2024 10:04 AM EDT Images from the original note were not included. Assessment and Plan 1. Fall, initial encounter Mechanical fall with chipped tooth. Patient was neurovascularly intact in office today. I did discuss the recommendation for CT scan to rule out brain bleed, however, patient declined with known risks of missing a potentially life- threatening intracranial pathology. She will monitor her symptoms over the next 24 hours and notify of any neurologic changes occur. - URINALYSIS, POINT OF CARE (ENTER/EDIT) 2. Bipolar I disorder, most recent episode depressed (HCC) Continue to follow up with Psychiatry. Continue Abilify 15 mg, Klonopin 0.5 mg twice daily, Cymbalta 30 mg in the morning and 50 mg at night. 3. Recurrent UTI Recurrent UTI. Rule out UTI as a cause of potential fall. - URINALYSIS, POINT OF CARE (ENTER/EDIT) 4. Urge incontinence Urge incontinence without significant improvement on mirabegron. Recommend patient discuss this with the Urology her upcoming appointment in June. Hesitant to add another medication such as solifenacin due to potential falls and anticholinergic side effects. 5. Chronic, continuous use of opioids Likely leading to constipation. Treat with Senokot S and MiraLax as below. 6. Drug induced constipation - Sennosides-Docusate Sodium 8.6-50 MG Oral Tablet (Senokot-S); Take 1 Tablet by mouth in the morning. Dispense: 90 Tablet; Refill: 3 7. Migraine without status migrainosus, not intractable, unspecified migraine type Continue Topamax 50 mg daily. 8. Age-related osteoporosis without current pathological fracture Continue alendronate. Plan to repeat DEXA scan in 2024. 9. Hyperlipidemia, unspecified hyperlipidemia type Continue statin. Wrap-Up Follow up in 3 months. History of Present Illness The patient is a 68-year-old female with past medical history of bipolar 1 disorder, generalized anxiety disorder, GERD, hyperlipidemia, migraine, lumbar back pain on chronic opioid therapy who presents for hospital follow up. The patient was admitted to [facility] from 04/22/2024 through 04/27/2024. Patient initially presented due to intentional beta-margo overdose. She took an unquantified amount of propranolol tablets after having an argument with her daughter. She also had a fall after an episode of diarrhea. CT scans were negative. Psychiatry was consulted and a bed search was placed da inpatient Gi psych unit. This was declined. For 302 on 04/27 and the patient was discharged to home. A plan to pursue placement for the patient was discussed at the time of discharge. Medication changes included discontinuing propranolol and decreasing her Klonopin dosing. Today patient presents for follow up. Her main concern is a fall that occurred overnight. This sounds like a mechanical fall tripping over a cat toy in her home. She did chip for tooth but otherwise denies loss of consciousness and feels well today. She does have a small amount of thoracic rib painat the left mid clavicular line. Patient continues to deal with significant overactive bladder. She reports having to urinate every 30 minutes to hour. She was currently taking mirabegron, however, this has not provided significant relief of symptoms. She previously tried oxybutynin, however, given memory concerns this was discontinued. She does have follow up with Urology scheduled in June 2024. Patient dealing with constipation likely related to her chronic opioid use. Physical Exam Vitals: 06/02/24 0945 Temp: 36.3 C (97.3 F) Pulse: 92 Resp: 16 SpO2: 94% BP: 120/78 BMI: 23.13 Physical Exam Physical Exam Vitals reviewed. Constitutional: General: She is not in acute distress. HENT: Mouth/Throat: Comments: Small cut at the left lower lip. Chipped upper tooth. Cardiovascular: Rate and Rhythm: Normal rate and regular rhythm. Heart sounds: No murmur heard. Pulmonary: Effort: Pulmonary effort is normal. No respiratory distress. Breath sounds: Normal breath sounds. No wheezing. Neurological: General: No focal deficit present. Mental Status: She is alert. Cranial Nerves: No cranial nerve deficit. Psychiatric: Comments: Flat affect. Time: I spent a total of 40-54 minutes (exact time 44 mins) on the date of service in preparation, delivery, and documentation of the care provided to the patient excluding any time spent in the performance of separately billed services. This note has been completed in part utilizing [employer] Speech Voice Recognition Software. Due to technical limitations of the software, grammatical errors, random word insertions, prounoun errors, and incomplete sentences may occur. Any formal questions or concerns about the content, text, or information contained within the body of this dictation should be directly addressed to the provider for clarification. documented in this encounter Nursing Notes * Rona Gonsalez MED ASSIST - 06/02/2024 9:52 AM EDT The patient has been properly identified by confirmation of name and date of . Chief Complaint Patient presents with Hospital Follow-Up Patient is here today for a hospital visit follow up. Patient states she was in for 5 days. Patient states that she fell last night over a cat toy and hit her chest; patient has also broken atooth and has a cut on her lower lip, L side. Patient has been having constipation. Patient would like a hydrocodone refill. documented in this encounter Plan of Treatment Upcoming Encounters Date Type Department Care Team (Late st Contact Info) Description 06/10/2024 12:30 PM EDT Telemedicine Psychology [facility] [address] [place] [address] Telma Tyson, RAGHU 132 [place] [address] 06/21/2024 2:00 PM EDT Telemedicine Psychiatry [address] [address] [place] [address] Kimi Bro MD [address] [place] [address] 06/23/2024 2:00 PM EDT Office Visit [address] [place] [address] JanuaryEdu MD [address] [place] [address] 06/29/2024 3:00 PM EDT Telemedicine Neurology, [place] [facility] [address] [place] [address] Chung Santos MD [address] [place] [address] 07/14/2024 3:00 PM EDT Office Visit Neurology [address] [place] [address] Ekta Carter, DEWAYNE [address] [facility] [place] [id number] 07/21/2024 3:00 PM EDT Office Visit Urology, [facility] [address] [place] [address] Arturo Ewing MD [address] [place] [address] 09/01/2024 2:00 PM EST Office Visit [facility] [address] [place] [address] Edu Torre MD [address] [place] [address] 09/17/2024 2:00 PM EST Office Visit Audiology [facility] 132 [facility] [place] [address] Zonia Marvin Au.D. 132 [facility] [place] [address] Scheduled Procedures Name Priority Associated Diagnoses Date/Ti [...] 02/15/2024 02/14/2023, 02/14/2023 COVID-19 Vaccine (3 - 2022-2 4 season) 2024 11/20/2020, 10/23/2020 Influenza Vaccine (FLU shot) (#1) 2024 DXA Scan 01/27/2025 01/27/2023 Depression Monitoring 05/12/2025 05/12/2024 Colorectal Cancer Screening 05/26/2025 Fecal Occult Blood Test 05/26/2025 05/26/20 24, 08/29/2022, 08/29/2022 Lipid Panel 08/13/2027 08/13/2022 VITAMIN D LEVEL ONCE IN A LIFETIME-USE SMARTSET# [id number] Completed 01/27/2023, 08/13/2022 Pneumococcal Vaccine: 65+ Years [...] Comments URINALYSIS, POINT OF CARE (ENTER/EDIT) Routine 06/02/2024 Fall, initial encounter Recurrent UTI documented in this encounter Results * (ABNORMAL) URINALYSIS, POINT OF CARE (ENTER/EDIT) (06/02/2024) Color, Urine Yellow Yellow or Light Yellow Clarity, Urine Clear Clear Glucose, Urine Negative Negative mg/dL Bilirubin, Urine Negative Negative Ketone, Urine Negative Negative mg/dL Specific [place], Urine 1.025 1.003 - 1.030 Blood, Urine Negative Negative pH, Urine 5.5 5.0 - 7.5 units Protein, Urine Trace(A) Negative mg/dL Urobilinogen, Urine 1.0 0.2 - 1.0 mg/dL Nitrite, Urine Negative Negative Esterase, Urine Trace(A) Negative Urine 06/02/2024 Edu Torre MD LAB POINT OF CARE TE ENTER/EDIT ORDERABLES documented in this encounter Visit Diagnoses Diagnosis Fall, initial encounter- Primary Bipolar I disorder, most recent episode depressed (HCC) Bipolar I disorder, most recent episode (or current) depressed, unspecified Recurrent UTI Urinary tract infection, site not specified Urge incontinence Chronic, continuous use of opioids Opioid type dependence, continuous Drug induced constipation Migraine without status migrainosus, not intractable, unspecified migraine type Age-related osteoporosis without current pathological fracture Senile osteoporosis Hyperlipidemia, unspecified hyperlipidemia type documented in this encounter Care Teams Temple Meat Cutter Relationship Specialty Start Date End Date January, Edu Camacho MD [address] [place] [address] PCP - General Family Medicine 07/30/22 documented as of this encounter
--- OUTSIDE RECORDS SUMMARY | 2024-08-28 14:39 | External Medical Summary | Summary of Care ---
Author Name Unknown Organization [facility] Address [address] [place] [address] Phone [phone] Care Team Providers Care Nursing Home Admissions Director Name Role Phone Edu Torre MD Primary Care Provider [phone] Reason for Visit * Reason Onset Date Comments Med Request 06/02/2024 Encounter Details Date Type Department Care Team (Late st Contact Info) Description 06/02/2024 Telephone [facility] [address] [place] [address] Edu Torre MD [address] [place] [address] Med Request Allergies Active Allergy [...] AM EDT Pt called asking if the DrNita Will send an antibiotic for her UTI Please advise Thank you, Cori Brooks [facility] Nurse II [facility] 06/02/2024,11:47 AM documented in this encounter Plan of Treatment Upcoming Encounters Date Type Department Care Team (Late st Contact Info) Description 06/10/2024 12:30 PM EDT Telemedicine Psychology [facility] [place] [address] Telma Tyson, [facility] [address] [place] [address] 06/21/2024 2:00 PM EDT Telemedicine Psychiatry [place] [address] [place] [address] Kimi Bro MD [address] [place] [address] 06/23/2024 2:00 PM EDT Office Visit [facility] [address] [place] [address] January, Edu Camacho MD [address] [place] [address] 06/29/2024 3:00 PM EDT Telemedicine Neurology, [place] [facility] [address] [place] [address] Chung Santos MD [address] [place] [address] 07/14/2024 3:00 PM EDT Office Visit Neurology [address] [place] [address] Ekta Carter CRNP [address] [facility] [place] [address] 07/21/2024 3:00 PM EDT Office Visit Urology, [facility] 132 [facility] [place] [address] Arturo Ewing MD [address] [place] [address] 09/01/2024 2:00 PM EST Office Visit [facility] [address] [place] [address] JanuaryEdu MD [address] [place] [address] 09/17/2024 2:00 PM EST Office Visit Audiology [facility] [address] [place] [address] Zonia Marvin Au.D. [address] [place] [address] Scheduled Procedures Name Priority Associated Diagnoses Date/Ti [...] Mammogram 02/15/2024 02/14/2023, 02/14/2023 COVID-19 Vaccine (3 2022-2 4 season) 2024 11/20/2020, 10/23/2020 Influenza Vaccine (FLU shot) (#1) 2024 DXA Scan 01/27/2025 01/27/2023 Depression Monitoring 05/12/2025 05/12/2024 Colorectal Cancer Screening 05/26/2025 Fecal Occult Blood Test 05/26/2025 05/26/20 24, 08/29/2022, 08/29/2022 Lipid Panel 08/13/2027 08/13/2022 VITAMIN D LEVEL ONCE IN A LIFETIME-USE SMARTSET# [id number] Completed 01/27/2023, 08/13/2022 Pneumococcal Vaccine: 65+ Years [...] filedocumented as of this encounter Care Teams Nursing Home Admissions Director Relationship Specialty Start Date End Date January, Edu Camacho MD [address] [place] [address] PCP - General Family Medicine 07/30/22 documented as of this encounter
--- OUTSIDE RECORDS SUMMARY | 2024-08-28 14:39 | External Medical Summary | Summary of Care ---
Author Name Unknown Organization [facility] Address [address] [place] [address] Phone [phone] Care Team Providers Care Feed Research Aide Name Role Phone Edu Trore MD Primary Care Provider [phone] Reason for Visit * Reason Onset Date Comments Med Request 06/02/2024 Status Check 06/02/2024 Encounter Details Date Type Department Care Team (Late st Contact Info) Description 06/02/2024 Telephone [facility] [address] [place] [address] Edu Torre MD [address] [place] [address] Med Request; Status Check Allergies Active Allergy Reactions Criticality Noted Date Comments Prochlorperazine Other (Please comment) Medium 07/30/2022 Generalized weakness Morphine And Codeine Nausea/vomiting,Oth er (Please comment) Medium 07/30/2022 Room spinning as well documented as of this encounter (statuses as of 06/03/2024) Medications Medication Sig Dispensed Refills Start Date [...] as of this encounter (statuses as of 06/03/2024) Active Problems Problem Noted Date Diagnosed Date [...] as of this encounter (statuses as of 06/03/2024) Resolved Problems Problem Noted Date Diagnosed Date Resolved Date Bipolar disorder 07/30/2022 11/15/2022 Overview: More recent.specified code listed on PL documented as of this encounter (statuses as of 06/03/2024) Immunizations Name Administration Dates Next Due Pneumococcal [...] high priority. Thank you, Lauryn Garcia CPhT Bus Cleaner III [facility] [address] [place] [address], [place] [phone] * Telephone Encounter - Edu Torre MD [...] Please advise Thank you, Cori Brooks CPhT Bus Cleaner II [facility] 06/02/2024,11:47 AM documented in this encounter Plan of Treatment Upcoming Encounters Date Type Department Care Team (Late st Contact Info) Description 06/10/2024 12:30 PM EDT Telemedicine Psychology [facility] [place] [address] Telma Tyson, INSPECTOR [employer] [address] [place] [address] 06/21/2024 2:00 PM EDT [facility] [address] [place] [address] Kimi Bro MD [address] [place] [address] 06/23/2024 2:00 PM EDT Office Visit [facility] [address] [place] [address] Edu Torre MD [address] [place] [address] 06/29/2024 3:00 PM EDT Telemedicine Neurology, [place] [facility] [address] [place] [address] Chung Santos MD [address] [place] [address] 07/14/2024 3:00 PM EDT Office Visit Neurology [address] [place] [address] Ekta Carter CRNP [address] [facility] [place] [address] 07/21/2024 3:00 PM EDT Office Visit Urology, [facility] [address] [place] [address] Arturo Ewing MD [address] [place] [address] 09/01/2024 2:00 PM EST Office Visit [facility] [address] [place] [address] JanuaryEdu MD [address] [place] [address] 09/17/2024 2:00 PM EST Office Visit Audiology [facility] [address] [place] [address] Zonia Marvin Au.D. [address] [place] [address] Scheduled Procedures Name Priority Associated Diagnoses Date/Ti [...] D LEVEL ONCE IN A LIFETIME-USE SMARTSET# [id number] Completed 01/27/2023, 08/13/2022 Pneumococcal Vaccine: 65+ Years [...] filedocumented as of this encounter Care Teams Feed Research Aide Relationship Specialty Start Date End Date January, Edu Camacho MD [address] [place] [address] PCP - General Family Medicine 07/30/22 documented as of this encounter
--- OUTSIDE RECORDS SUMMARY | 2024-08-28 14:39 | External Medical Summary | Summary of Care ---
Author Name Unknown Organization [facility] Address [address] [place] [address] Phone [phone] Care Team Providers Care Financial Planning Consultant Name Role Phone Edu Torre MD Primary Care Provider [phone] Reason for Visit * Reason Comments Outpatient Testing Encounter Details Date Type Department Care Team (Late st Contact Info) Description 05/08/2024 12:50 PM EDT Laboratory Laboratory, [facility] [address] [facility] [address] Encounter for long-term (current) use of medications; Memory loss Allergies Active Allergy Reactions Criticality Noted Date [...] 30 mg capsule 90 Capsule 4 Active Topiramate 50 MG Oral Tablet [...] 24 Discontinu ed(Medicat ion List Clean Up) ARIPiprazole 15 MG Oral Tablet (Abilify)Indications :Bipolar I disorder, most recent episode depressed (HCC) Take 1 Tablet by mouth every night at bedtime. 90 Tablet 4 05/26/20 24 Discontinu ed(Refill) HYDROcodone-Acetamin ophen 5-325 MG Oral TabletIndications:Dorinda mbar radiculopathy Take 1 Tablet by mouth every 6 hours as needed for severe pain 120 Tablet 4 05/26/20 24 Discontinu ed(Refill) clonazePAM 0.5 MG Oral Tablet (KlonoPIN)Indication s:Bipolar I disorder, most recent episode depressed (HCC) Take 1 Tablet by mouth in the morning and 1 Tablet in the evening. 60 Tablet 4 05/31/20 24 Discontinu ed(Refill) documented as of this [...] ages 0-17 years) Not on file 10/01/2023 Are you homeless or worried that [...] Description 06/10/2024 12:30 PM EDT Telemedicine Psychology [facility] [address] [place] [address] Telma Tyson, ASSOCIATE STORE MANAGER [address] [place] [address] 06/21/2024 2:00 PM EDT Telemedicine Psychiatry [place] 9 [place] [address] Kimi Bro MD [address] [place] [address] 06/23/2024 2:00 PM EDT Office Visit [address] [address] Edu Torre MD [address] [place] [address] 06/29/2024 3:00 PM EDT Telemedicine Neurology, [place] [address] [place] [address] Chung Santos MD [address] [place] [id number] 07/14/2024 3:00 PM EDT Office Visit Neurology [address] [place] [address] Ekta Carter CRNP 100 [address] [facility] [place] [id number] 07/21/2024 3:00 PM EDT Office Visit Urology, [facility] 132 [facility] [place] [address] Arturo Ewing MD [address] [place] [address] 09/01/2024 2:00 PM EST Office Visit [facility] [address] [place] [address] Edu Torre MD [address] [place] [address] 09/17/2024 2:00 PM EST Office Visit Audiology [facility] [place] [address] Zonia Marvin Au.D. [address] [place] [address] Pending Results Name Type Priority Associated Diagnoses Date /Time TOXICOLOGY, URINESCREEN W/ CONFIRMATION Lab Routine Memory loss 06/02/2024 12:09 PM EDT Scheduled Procedures Name Priority Associated Diagnoses Date/Ti [...] 2019 Mammogram 02/15/2024 02/14/2023, 02/14/2023 COVID-19 Vaccine (2022-2 4 season) 2024 11/20/2020, 10/23/2020 Influenza Vaccine (FLU shot) (#1) 2024 DXA Scan 01/27/2025 01/27/2023 Depression Monitoring 05/12/2025 05/12/2024 Colorectal Cancer Screening 05/26/2025 Fecal Occult Blood Test 05/26/2025 05/26/20 24, 08/29/2022, 08/29/2022 Lipid Panel 08/13/2027 08/13/2022 VITAMIN D LEVEL ONCE IN A LIFETIME-USE SMARTSET# [id number] Completed 01/27/2023, 08/13/2022 Pneumococcal Vaccine: 65+ Years [...] Procedure Name Priority Date/Time Associated Diagnosis Comments SYPHILIS ANTIBODY SCREEN Routine 05/08/2024 3:10 PM EDT Memory loss VITAMIN B1 (THIAMINE), BLOOD, LC/MS/MS Routine 05/08/2024 3:10 PM EDT Memory loss SYPHILIS ANTIBODY SCREEN WITH REFLEX TO RPR Routine 05/08/2024 3:10 PM EDT Memory loss HOMOCYSTEINE Routine 05/08/2024 3:10 PM EDT Memory loss FOLIC ACID Routine 05/08/2024 3:10 PM EDT Memory loss PHOSPHORUS Routine 05/08/2024 3:10 PM EDT Memory loss MAGNESIUM Routine 05/08/2024 3:10 PM EDT Encounter for long-term (current) use of medications documented in this encounter Results * SYPHILIS ANTIBODY SCREEN (05/08/2024 3:10 PM EDT) [facility] Syphilis Screen Interpretation Nonreactive Nonreactive 05/09/2024 9:55 AM EDT LABORATORY [facility] Comment:No serologic evidenc e of syphilis. No additional testing clinicially indicated at this time. Consider repeat testing in 2-4 weeks if acute or primary syphilis is suspected. Blood Venous blood specimen / Unknown Venipuncture / Unknown 05/08/2024 3:10 PM EDT 05/08/2024 3:10 PM EDT Chung Santos MD LAB BLOOD ORDERAB LES Performing Organization Address City/[facility] Co de Phone Number LAB[facility]ATORY [facility] [address] [place] [address] * PHOSPHORUS (05/08/2024 3:10 PM EDT) [facility] Phosphorus 2.7 2.5 - 4.8 mg/dL 05/08/2024 7:50 PM EDT LABORATORY [facility] Blood Venous blood specimen / Unknown Venipuncture / Unknown 05/08/2024 3:10 PM EDT 05/08/2024 3:10 PM EDT Chung Santos MD LAB BLOOD ORDERAB LES Performing Organization Address City/[facility]/ZIP Co de Phone Number LABORATORY [facility] [address] [place] [address] * (ABNORMAL) HOMOCYSTEINE (05/08/2024 3:10 PM EDT) [facility] Homocysteine 10.4(H) <10.4 umol/L 05/12/2024 6:15 AM EDT [email or web address] Comment: Homocysteine is increased by functional deficiency of folate or vitamin B12. Testing for methylmalonic acid differentiates between these deficiencies. Other causes of increased homocysteine include renal failure, folate antagonists such as methotrexate and phenytoin, and exposure to nitrous oxide. Monae Kaiser, et al. Rosaline Hydropulper Operator Med. 1999;131(5):331-9. Test Performed at: [facility] [address] [address] Feliciano Bateman M.D., Ph.D.,Director of Laboratories Blood Venous blood specimen / Unknown Venipuncture / Unknown 05/08/2024 3:10 PM EDT 05/08/2024 3:10 PM EDT Chung Santos MD LAB BLOOD ORDERAB LES [facility] [address] [place] [address] * FOLIC ACID (05/08/2024 3:10 PM EDT) [facility] Folic Acid 15.1 >4.5 ng/mL 05/08/2024 8:37 PM EDT LABORATORY [facility] Blood Venous blood specimen / Unknown Venipuncture / Unknown 05/08/2024 3:10 PM EDT 05/08/2024 3:10 PM EDT Chung Santos MD LAB BLOOD ORDERAB LES [facility]ORY [address] [address] * VITAMIN B1 (THIAMINE), BLOOD, LC/MS/MS (05/08/2024 3:10 PM EDT) [facility] Vitamin B1 (Thiamine),B 139 78 - 185 nmol/L 05/19/2024 2:10 PM EDT [email or web address] Comment: Vitamin supplementation within 24 hours prior to blood draw may affect the accuracy of the results. This test was developed and its analytical performance characteristics have been determined by [facility] [place], [place]. It has not been cleared or approved by the U.S. Food and Drug Administration. This assay has been validated pursuant to the CLIA regulations and is used for clinical purposes. Test Performed at: [facility] [address] Feliciano Bateman M.D., Ph.D.,Director of Laboratories Blood Venous blood specimen / Unknown Venipuncture / Unknown 05/08/2024 3:10 PM EDT 05/08/2024 3:10 PM EDT Chung Santos MD LAB BLOOD ORDERAB LES [place] [id number] [place] [address] * MAGNESIUM (05/08/2024 3:10 PM EDT) [facility] Magnesium 2.4 1.5 - 2.6 mg/dL 05/08/2024 7:50 PM EDT [facility]ATORY [facility] Blood Venous blood specimen / Unknown Venipuncture / Unknown 05/08/2024 3:10 PM EDT 05/08/2024 3:10 PM EDT Denisa Wagner [facility] LAB BLOOD ORDE RABLES [facility] [address] [place] [address] documented in this encounter Visit Diagnoses Diagnosis Encounter for long-term (current) use of medications Encounter for long-term (current) use of other medications Memory loss documented in this encounter Care Teams Financial Planning Consultant Relationship Specialty Start Date End Date January, Edu Camacho MD [address] [place] [address] PCP - General Family Medicine 07/30/22 documented as of this encounter
--- OUTSIDE RECORDS SUMMARY | 2024-08-28 14:39 | External Medical Summary | Summary of Care ---
Author Name Unknown Organization [facility] Address [address] [place] [address] Phone [phone] Care Team Providers Care Gas Regulator Repairer Helper Name Role Phone Edu Torre MD Primary Care Provider [phone] Reason for Visit * Reason Onset Date Comments Med Request 06/02/2024 Encounter Details Date Type Department Care Team (Late st Contact Info) Description 06/02/2024 Telephone [facility] [address] [place] [address] Edu Torre MD [address] [place] [address] Med Request Allergies Active Allergy [...] UTI Please advise Thank you, Cori Brooks [facility] Mold Repairer II [facility]) 06/02/2024,11:47 AM documented in this encounter Plan of Treatment Upcoming Encounters Date Type Department Care Team (Late st Contact Info) Description 06/10/2024 12:30 PM EDT Telemedicine Psychology [facility] [place] [address] Telma Tyson, [facility] [address] [place] [address] 06/21/2024 2:00 PM EDT Telemedicine Psychiatry [place] [address] [place] [address] Kimi Bro MD [address] [place] [address] 06/23/2024 2:00 PM EDT Office Visit [facility] [address] [place] [address] January, Edu Camacho MD [address] [place] [address] 06/29/2024 3:00 PM EDT Telemedicine Neurology, [place] [facility] [address] [place] [address] Chung Santos MD [address] [place] [address] 07/14/2024 3:00 PM EDT Office Visit Neurology [address] [place] [address] Ekta Carter CRNP 100 [address] [facility] [place] [address] 07/21/2024 3:00 PM EDT Office Visit Urology, [facility] [place] [address] Arturo Ewing MD [address] [place] [address] 09/01/2024 2:00 PM EST Office Visit [facility] [address] [place] [address] JanuaryEdu MD [address] [place] [address] 09/17/2024 2:00 PM EST Office Visit Audiology [facility] [address] [place] [address] Zonia Marvin Au.D. [address] [place] [address] Scheduled Procedures Name Priority Associated Diagnoses Date/Ti [...] D LEVEL ONCE IN A LIFETIME-USE SMARTSET# [id number] Completed 01/27/2023, 08/13/2022 Pneumococcal Vaccine: 65+ Years [...] filedocumented as of this encounter Care Teams Gas Regulator Repairer Helper Relationship Specialty Start Date End Date January, Edu Camacho MD [address] [place] [address] PCP - General Family Medicine 07/30/22 documented as of this encounter
--- OUTSIDE RECORDS SUMMARY | 2024-08-28 14:39 | External Medical Summary | Summary of Care ---
Author Name Unknown Organization [facility] Address [address] [place] [address] Phone [phone] Care Team Providers Care Applications Architect Name Role Phone Edu Torre MD Primary Care Provider Encounter Details Date Type Department Care Team (Late st Contact Info) Description 06/04/2024 Telephone Neurology, [address] [place] [address] Chung Santos MD [address] [place] [address] Allergies Active Allergy [...] Description 06/10/2024 12:30 PM EDT Telemedicine Psychology [facility] [address] [place] [address] Telma Tyson LCSW 132 [place] [address] 06/21/2024 2:00 PM EDT Telemedicine Psychiatry [place] [address] [place] [address] Kimi Bro MD [address] [place] [address] 06/23/2024 2:00 PM EDT Office Visit [place] [address] [place] [address] JanuaryEdu MD [address] [place] [address] 06/29/2024 3:00 PM EDT Telemedicine Neurology, [place] [facility] [address] [place] [address] Chung Santos MD [address] [place] [address] 07/14/2024 3:00 PM EDT Office Visit Neurology [address] [place] [address] Ekta Carter CRNP [address] [place] [address] 07/21/2024 3:00 PM EDT Office Visit Urology, [facility] 132 [facility] [place] [address] Arturo Ewing MD [address] [place] [address] 09/01/2024 2:00 PM EST Office Visit [facility] [address] [place] [address] JanuaryEdu MD [address] [place] [address] 09/17/2024 2:00 PM EST Office Visit Audiology [facility] 132 [facility] [place] [address] Zonia Marvin Au.D. [address] [place] [address] Scheduled Procedures Name Priority Associated Diagnoses Date/Ti [...] D LEVEL ONCE IN A LIFETIME-USE SMARTSET# [id number] Completed 01/27/2023, 08/13/2022 Pneumococcal Vaccine: 65+ Years [...] filedocumented as of this encounter Care Teams Applications Architect Relationship Specialty Start Date End Date January, Edu Camacho MD [address] [facility] [place] [address] PCP - General Family Medicine 07/30/22 documented as of this encounter
--- OUTSIDE RECORDS SUMMARY | 2024-08-28 14:39 | External Medical Summary | Summary of Care ---
Author Name Unknown Organization [facility] Address [address] [place] [address] Phone [phone] Care Team Providers Care Tube Depatcher Name Role Phone Edu Torre MD Primary Care Provider Reason for Visit * Reason Onset Date Comments Med Request 06/02/2024 Encounter Details Date Type Department Care Team (Late st Contact Info) Description 06/02/2024 Telephone [facility] [address] [place] [address] Edu Torre MD [address] [place] [address] Med Request Allergies Active Allergy [...] encounter Miscellaneous Notes * Telephone Encounter - Cori Brooks PHARM Tech - 06/02/2024 11:46 AM EDT Pt called asking if the Will send an antibiotic for her UTI Please advise Thank you, Cori Brooks, [facility] Yeast Cake Cutter II [facility]) 06/02/2024,11:47 AM documented in this encounter Plan of Treatment Upcoming Encounters Date Type Department Care Team (Late st Contact Info) Description 06/10/2024 12:30 PM EDT Telemedicine Psychology [facility] [place] [address] Telma Tyson, GAS PROCESSING PLANT OPERATOR [address] [place] [address] 06/21/2024 2:00 PM EDT Telemedicine Psychiatry [place] [address] [place] [address] Kimi Bro MD [address] [place] [address] 06/23/2024 2:00 PM EDT Office Visit [facility] [address] [place] [address] JanuaryEdu MD [address] [place] [address] 06/29/2024 3:00 PM EDT Telemedicine Neurology, [place] Shw[facility] [address] [place] [address] Chung Santos MD [address] [place] [address] 07/14/2024 3:00 PM EDT Office Visit Neurology [address] [place] [address] Ekta Carter, LAMINATION SPINNER 100 [address] [facility] [place] [address] 07/21/2024 3:00 PM EDT Office Visit Urology, [facility] 132 [facility] [place] [address] Arturo Ewing MD 27 [place] [address] 09/01/2024 2:00 PM EST Office Visit [facility] [address] [place] [address] JanuaryEdu MD [address] [place] [address] 09/17/2024 2:00 PM EST Office Visit Audiology [facility] 132 [facility] [place] [address] Zonia Marvin Au.D. [address] [place] [address] Scheduled Procedures Name Priority Associated Diagnoses Date/Ti [...] D LEVEL ONCE IN A LIFETIME-USE SMARTSET# [id number] Completed 01/27/2023, 08/13/2022 Pneumococcal Vaccine: 65+ Years [...] filedocumented as of this encounter Care Teams Tube Depatcher Relationship Specialty Start Date End Date January, Edu Camacho MD [address] [place], [place] [phone] PCP - General Family Medicine 07/30/22 documented as of this encounter
--- OUTSIDE RECORDS SUMMARY | 2024-08-28 14:39 | External Medical Summary | Summary of Care ---
Author Name Unknown Organization [facility] Address [address] [place] [address] Phone [phone] Care Team Providers Care Warper Tender Name Role Phone Edu Torre MD Primary Care Provider Reason for Visit * Reason Comments Hospital [...] Description 06/02/2024 10:00 AM EDT Office Visit [facility] [address] [place] [address] Edu Torre MD [address] [place] [address] Fall, initial encounter*; Bipolar I disorder, most [...] follow up. The patient was admitted to [facility] from 04/22/2024 through 04/27/2024. Patient initially presented [...] note has been completed in part utilizing [employer] Speech Voice Recognition Software. Due to technical [...] Description 06/10/2024 12:30 PM EDT Telemedicine Psychology [facility] 132 [place] [address] Telma Tyson, RAGHU 132 [place] [address] 06/21/2024 2:00 PM EDT Telemedicine Psychiatry [place] [address] [place] [address] Kimi Bro MD [address] [place] [address] 06/23/2024 2:00 PM EDT Office [place] [address] [place] [address] JanuaryEdu MD [address] [place] [address] 06/29/2024 3:00 PM EDT Telemedicine Neurology, [place] [facility] [address] [place] [address] Chung Santos MD [address] [place] [address] 07/14/2024 3:00 PM EDT Office Visit Neurology [address] [place] [address] Ekta Carter CRNP 100 [address] [facility] [place] [id number] 07/21/2024 3:00 PM EDT Office Visit Urology, [facility] 132 [facility] [place] [address] Arturo Ewing MD 27 [place] [address] 09/01/2024 2:00 PM EST Office Visit [facility] [address] [facility] [place] [phone] Edu Torre MD [address] [place] [address] 09/17/2024 2:00 PM EST Office Visit Audiology [facility] [place] [address] oZnia Marvin Au.D. 132 [facility] [place] [address] Scheduled Orders Name Type Priority Associated Diagnoses Orde r Schedule URINALYSIS, POINT OF CARE (ENTER/EDIT) Point of Care Testing Routine Fall, initial encounter Recurrent UTI Ordered: 06/02/2024 Scheduled Procedures Name Priority Associated Diagnoses Date/Ti [...] D LEVEL ONCE IN A LIFETIME-USE SMARTSET# [id number] Completed 01/27/2023, 08/13/2022 Pneumococcal Vaccine: 65+ Years [...] as of this encounter Visit Diagnoses Diagnosis Fall, initial [...] type documented in this encounter Care Teams Warper Tender Relationship Specialty Start Date End Date January, Edu Camacho MD [address] [place] [address] PCP - General Family Medicine 07/30/22 documented as of this encounter
--- OUTSIDE RECORDS SUMMARY | 2024-08-28 14:39 | External Medical Summary | Summary of Care ---
Author Name Unknown Organization [facility] Address [address] [place] [address] Phone [phone] Care Team Providers Care Marketing And Communications Officer Name Role Phone Edu Torre MD Primary Care Provider [phone] Reason for Visit * Reason Onset Date Comments Med Request 06/02/2024 Status Check 06/02/2024 Encounter Details Date Type Department Care Team (Late st Contact Info) Description 06/02/2024 Telephone [facility] [address] [place] [address] Edu Torre MD [address] [place] [address] Med Request; Status Check Allergies [...] high priority. Thank you, Lauryn Garcia CPhT Wallpaperer Helper III [facility]) [address] [place] [address], [address] [phone] * Telephone Encounter - Edu Torre MD [...] UTI Please advise Thank you, Cori Brooks, [facility] Wallpaperer Helper II [facility]) 06/02/2024,11:47 AM documented in this encounter Plan of Treatment Upcoming Encounters Date Type Department Care Team (Late st Contact Info) Description 06/10/2024 12:30 PM EDT Telemedicine Psychology [facility] [address] [facility] [address] Telma Tyson, [facility] [address] [place] [address] 06/21/2024 2:00 PM EDT Telemedicine Psychiatry [place] [address] [place] [address] Kimi Bro MD [address] [place] [address] 06/23/2024 2:00 PM EDT Office Visit [facility] [address] [place] [address] Edu Torre MD [address] [place] [address] 06/29/2024 3:00 PM EDT Telemedicine Neurology, [place] [facility] [address] [place] [address] [place] [address] Chung Santos MD [address] [place] [address] 07/14/2024 3:00 PM EDT Office Visit Neurology [address] [place] [address] Ekta Carter, DEWAYNE [address] [place], [place] [address] 07/21/2024 3:00 PM EDT Office Visit Urology, [facility] 132 [facility] [place] [address] Arturo Ewing MD [address] [place] [id number] 09/01/2024 2:00 PM EST Office Visit [facility] [address] [place] [address] Edu Torre MD [address] [place] [address] 09/17/2024 2:00 PM EST Office Visit [facility] [place] [address] Zonia Marvin Au.D. 132 [facility] [place] [address] Scheduled Procedures Name Priority Associated Diagnoses Date/Ti [...] 2019 Mammogram 02/15/2024 02/14/2023, 02/14/2023 COVID-19 Vaccine (2023-10 5 season) 2024 11/20/2020, 10/23/2020 Influenza Vaccine (FLU shot) (#1) 2024 DXA Scan 01/27/2025 01/27/2023 Depression Monitoring 05/12/2025 05/12/2024 Colorectal Cancer Screening 05/26/2025 Fecal Occult Blood Test 05/26/2025 05/26/20 24, 08/29/2022, 08/29/2022 Lipid Panel 08/13/2027 08/13/2022 VITAMIN D LEVEL ONCE IN A LIFETIME-USE SMARTSET# [id number] Completed 01/27/2023, 08/13/2022 Pneumococcal Vaccine: 65+ Years [...] as of this encounter Care Teams Marketing And Communications Officer Relationship Specialty Start Date End Date January, Edu Camacho MD [address] [place] [address] PCP - General Family Medicine 07/30/22 documented as of this encounter
--- OUTSIDE RECORDS SUMMARY | 2024-08-28 14:39 | External Medical Summary ---
Author Name Unknown Address Unknown Organization K01:LABORATORY [address] [address] Laboratory Report Ordering Provider Test Date Status SANNA VARGAS 06/02/2024 12:09:24 Final Cutoff Concentrations:
D rug Level
Alpha-Hydroxyalprazolam 10 ng/mL
7-Aminoclonazepam 20 ng/mL
Nordiazepam 20 ng/mL
Oxazepam 20 ng/mL
Temazepam 20 ng/mL
Lorazepam 10 ng/mL

This test was developed and its performance characteristics determined by [facility]. It has not been cleared or approved by the [place] Food and Drug Administration. Observation Date Value Abnormality Reference (Units) Status METHODOLOGY 06/02/2024 12:09:24 LC-MS/MS Final Alpha hydroxyalprazolam cutoff [Mass/volume] in Urine for Confirmatory method 06/02/2024 12:09:24 Negative Negative Final 7-Aminoclonazepam [Mass/volume] in Urine by Confirmatory method 06/02/2024 12:09:24 >20 Above high normal Negative (ng/mL) Final Nordiazepam cutoff [Mass/volume] in Urine for Confirmatory method 06/02/2024 12:09:24 Negative Negative Final Oxazepam cutoff [Mass/volume] in Urine for Confirmatory method 06/02/2024 12:09:24 Negative Negative Final Temazepam cutoff [Mass/volume] in Urine for Confirmatory method 06/02/2024 12:09:24 Negative Negative Final LORazepam cutoff [Mass/volume] in Urine for Confirmatory method 06/02/2024 12:09:24 Negative Negative Final Performing Location LABORATORY [address] [facility] [address]
--- OUTSIDE RECORDS SUMMARY | 2024-08-28 14:39 | External Medical Summary ---
Author Name Unknown Address Unknown Organization K01:[facility] - [facility] [address] [facility] [address] [facility] [address] Laboratory Report Ordering Provider Test Date Status SAMSANNA 06/02/2024 12:09:24 Final Cutoff Concentrations:
D rug Level
Codeine 40 ng/mL
Morphine 40 ng/mL
Hydrocodone 40 ng/mL
Hydromorphone 40 ng/mL
Dihydrocodeine 40 ng/mL
Oxycodone 50 ng/mL
Oxymorphone 50 ng/mL

This test was developed and its performance characteristics determined by [email or web address]. It has not been cleared or approved by the [place] Food and Drug Administration. Observation Date Value Abnormality Reference (Units ) Status METHODOLOGY 06/02/2024 12:09:24 LC-MS/MS Final Codeine 06/02/2024 12:09:24 Negative Negative Final Morphine, Urine confirmatory 06/02/2024 12:09:24 Negative Negative Final HYDROcodone cutoff [Mass/volume] in Urine for Confirmatory method 06/02/2024 12:09:24 550 Above high normal Negative (ng/mL) Final HYDROmorphone [Mass/volume] in Urine 06/02/2024 12:09:24 Negative Negative Final Dihydrocodeine [Mass/volume] in Urine by Confirmatory method 06/02/2024 12:09:24 203 Above high normal Negative (ng/mL) Final oxyCODONE [Presence] in Urine by Screen method 06/02/2024 12:09:24 Negative Negative Final oxyMORphone cutoff [Mass/volume] in Urine for Confirmatory method 06/02/2024 12:09:24 Negative Negative Final Performing Location [facility] [place] [address]
--- OUTSIDE RECORDS SUMMARY | 2024-08-28 14:39 | External Medical Summary | Summary of Care ---
Author Name Unknown Organization [facility] Address [address] [place] [address] Phone [phone] Care Team Providers Care Legal Intern Name Role Phone Edu Torre MD Primary Care Provider [phone] Encounter Details Date Type Department Care Team (Late st Contact Info) Description 06/04/2024 Telephone Neurology, [address] [place] [address] Chung Santos MD [address] [place] [place] [address] Allergies Active Allergy [...] Description 06/10/2024 12:30 PM EDT Telemedicine Psychology [facility] [address] [place] [address] Telma Tyson, [facility] [address] [place] [address] 06/21/2024 2:00 PM EDT Telemedicine Psychiatry [address] [place] [address] [place] [address] Kimi Bro MD [address] [place] [address] 06/23/2024 2:00 PM EDT Office Visit [facility] [address] [place] [address] Edu Torre MD [address] [place] [address] 06/29/2024 3:00 PM EDT Telemedicine Neurology, [place] Shweta [address] [place] [address] Chung Santos MD [address] [place] [address] 07/14/2024 3:00 PM EDT Office Visit Neurology [address] [place] [address] Ekta Carter CRNP [address] [facility] [place] [address] 07/21/2024 3:00 PM EDT Office Visit Urology, [facility] 132 [facility] [place] [address] Arturo Ewing MD [address] [place] [address] 09/01/2024 2:00 PM EST Office Visit [facility] [address] [place] [address] JanuaryEdu MD [address] [place], [place] [address] 09/17/2024 2:00 PM EST Office Visit Audiology [facility] 132 [facility] [place] [address] Zonia Marvin Au.D. 132 [facility] [place] [address] Scheduled Procedures Name Priority Associated Diagnoses Date/Ti [...] D LEVEL ONCE IN A LIFETIME-USE SMARTSET# 30961 Completed 01/27/2023, 08/13/2022 Pneumococcal Vaccine: 65+ Years [...] filedocumented as of this encounter Care Teams Legal Intern Relationship Specialty Start Date End Date January, Edu Camacho MD [address] [place] [address] PCP - General Family Medicine 07/30/22 documented as of this encounter
--- OUTSIDE RECORDS SUMMARY | 2024-08-28 14:39 | External Medical Summary | Summary of Care ---
Author Name Unknown Organization [facility] Address [address] [place] [address] Phone [phone] Care Team Providers Care Community Services Coordinator Name Role Phone JanuaryEdu MD Primary Care Provider [phone] Reason for Visit * Reason Onset Date Comments Med Request 06/02/2024 Status Check 06/02/2024 Encounter Details Date Type Department Care Team (Late st Contact Info) Description 06/02/[address] [facility] [address] [place] [address] Edu Torre MD [address] [place] [address] Med Request; Status Check Allergies [...] MD * Telephone Encounter - Lauryn Garcia [facility] - 06/03/2024 5:09 PM EDT Patient states her lab results show she has a UTI and she would like a call back high priority. Thank you, Lauryn Garcia CPhT Machine Ii Engraver III [facility] [address] [place] [address], [address] [place] [address] [phone] * Telephone Encounter - Edu Torre [...] advise Thank you, Cori Brooks CPhT Machine Ii Engraver II [facility]) 06/02/2024,11:47 AM documented in this encounter Plan of Treatment Upcoming Encounters Date Type Department Care Team (Late st Contact Info) Description 06/10/2024 12:30 PM EDT Telemedicine Psychology [facility] [address] [place] [address] Telma Tyson, SUPERVISOR TYPE DISK QUALITY CONTROL [address] [place] [address] 06/21/2024 2:00 PM EDT Telemedicine Psychiatry [place] [address] [place] [address] Kimi Bro MD [address] [place] [address] 06/23/2024 2:00 PM EDT Office Visit [facility] [address] [place] [facility] [place] [address] JanuaryEdu MD [address] [place] [address] 06/29/2024 3:00 PM EDT Telemedicine Neurology, [place] Shweta Villa [address] [place] [address] Chung Santos MD [address] [place] [address] 07/14/2024 3:00 PM EDT Office Visit Neurology [address] [place] [address] Ekta Carter CRNP [address] [facility] [place] [address] 07/21/2024 3:00 PM EDT Office Visit Urology, [facility] 132 [facility] [place] [address] Arturo Ewing MD [address] [place] [address] 09/01/2024 2:00 PM EST Office [facility] [address] [facility] [address] JanuaryEdu MD [address] [place] [address] 09/17/2024 2:00 PM EST Office Visit Audiology [facility] 132 [facility] [place] [address] Zonia Marvin Au.D. [address] [place] [address] Scheduled Procedures Name Priority Associated Diagnoses Date/Ti [...] D LEVEL ONCE IN A LIFETIME-USE SMARTSET# 72526 Completed 01/27/2023, 08/13/2022 Pneumococcal Vaccine: 65+ Years [...] filedocumented as of this encounter Care Teams Community Services Coordinator Relationship Specialty Start Date End Date January, Edu Camacho MD [address] [place] [address] PCP - General Family Medicine 07/30/22 documented as of this encounter
--- OUTSIDE RECORDS SUMMARY | 2024-08-28 14:40 | External Medical Summary | Summary of Care ---
Author Name Unknown Organization [facility] Address [address] [place] [address] Phone [phone] Care Team Providers Care Pension Examiner Name Role Phone Edu Torre MD Primary Care Provider [phone] Reason for Visit * Reason Onset Date Comments TRIAGE 05/18/2024 Encounter Details Date Type Department Care Team (Late st Contact Info) Description 05/18/2024 Telephone Neurology [facility], Shweta Kebede [address] [facility] [place] [address] Services, Scheduling [address] [place] [address] TRIAGE Allergies Active Allergy Reactions Criticality Noted Date Comments Prochlorperazine Other (Please comment) Medium 07/30/2022 Generalized weakness Morphine And Codeine Nausea/vomiting,Oth er (Please comment) Medium 07/30/2022 Room spinning as well documented as of this encounter (statuses as of 05/31/2024) Medications Medication Sig Dispensed Refills Start Date [...] as of this encounter (statuses as of 05/31/2024) Active Problems Problem Noted Date Diagnosed Date [...] as of this encounter (statuses as of 05/31/2024) Resolved Problems Problem Noted Date Diagnosed Date Resolved Date Bipolar disorder 07/30/2022 11/15/2022 Overview: More recent.specified code listed on PL documented as of this encounter (statuses as of 05/31/2024) Immunizations Name Administration Dates Next Due Pneumococcal [...] encounter Miscellaneous Notes * Telephone Encounter - Rupinder Bates OSA - 05/31/2024 2:06 PM EDT Do you want the two upcoming visits cancelled? A message was left for the pt but no call back yet * Telephone Encounter - Annia Haynes DO - 05/27/2024 2:39 PM EDT I have seen this pt before and according to your note from 03/10, Dr. Santos, "They stated that the reason they are seeing me is that they wanted to see a different provider than Dr. Haynes. Can discuss [place] [facility] follow up once I have completed work up as they do live closer to [facility]. She last saw Dr. Santos 03/10/24 via telemed and is scheduled with Dr. Santos in person on 06/29 and with Ekta in [place] on 07/14. Best option may be in-person f/u with Ekta in , cancel 06/29 and 07/14. I'll defer [facility] f/u plan to Dr. Santos. Thanks Annia Haynes DO 05/27/2024 2:41 PM * Telephone Encounter - Chung Santos MD - 05/21/2024 11:08 AM EDT May offer to have an in person visit with Dr. Haynes and Ekta Carter at Neurology [facility] in [facility]. * Telephone Encounter - Anais Ramirez OSA - 05/18/2024 1:42 PM EDT Neuroscience Phone Call Form- Requested Information from caller: Who is calling patient Provider patient is established with: Dr Santos What is the concern or issue they are having: pt calling to [facility] appt follow up notes from February state: Return for [facility] Tom 1st avail ok [facility] or acute to accommodate.. Check-out Comments: RTC [facility] 2 in person with Chung Santos on telecart,first available, may use [facility] or acute slot to accommodate. Please help schedule labs and MRI Brain. She states she can't go to [place] she states its too far please advise on scheduling Phone number for nurse to call back: [phone] documented in this encounter Plan of Treatment Upcoming Encounters Date Type Department Care Team (Late st Contact Info) Description 06/02/2024 10:00 AM EDT Office Visit [facility] [address] [facility] [place] [address] JanuaryEdu MD [address] [facility] [place] [address] 06/10/2024 12:30 PM EDT Telemedicine Psychology [facility] [address] [place] [address] Telma Tyson, AOC AADC OPERATIONS STAFF OFFICER [address] [address] 06/21/2024 2:00 PM EDT Telemedicine Psychiatry [address] [place] [address] Kimi Bro MD [address] [place] [address] 06/23/2024 2:00 PM EDT Office Visit [facility] [address] [place] [address] JanuaryEdu MD [address] [place] [address] 06/29/2024 3:00 PM EDT Telemedicine Neurology, [place] Shweta Villa [address] [place] [address] Chung Santos MD [address] [place] [address] 07/14/2024 3:00 PM EDT Office Visit Neurology [address] [place] [address] Ekta Carter, SOCIAL SERVICE MANAGER [address] [facility] [address] [address] 07/21/2024 3:00 PM EDT Office Visit Urology, [facility] 132 [facility] [place] [address] Arturo Ewing MD [address] [place] [address] 09/17/2024 2:00 PM EST Office Visit Audiology [facility] 132 [facility] [place] [address] Zonia Marvin Au.D. [address] [place] [address] Scheduled Procedures Name Priority Associated Diagnoses Date/Ti [...] D LEVEL ONCE IN A LIFETIME-USE SMARTSET# [id number] Completed 01/27/2023, 08/13/2022 Pneumococcal Vaccine: 65+ Years [...] filedocumented as of this encounter Care Teams Pension Examiner Relationship Specialty Start Date End Date January, Edu Camacho MD [address] [facility] [place] [address] PCP - General Family Medicine 07/30/22 documented as of this encounter
--- OUTSIDE RECORDS SUMMARY | 2024-08-28 14:40 | External Medical Summary | Summary of Care ---
Author Name Unknown Organization [facility] Address [address] [place] [address] Phone [phone] Care Team Providers Care Tentmaker Name Role Phone Andrés Nguyen MD Primary Care Provider [phone] Reason for Referral * Medication Prior Authorization - Pending Review Specialty Diagnoses / Procedures Referred By Contgabriel t Referred To Contact Diagnoses Lumbar radiculopathy Andrés Nguyen MD [address] [place] [address] Referral ID Status Reason Start Date Expiration Date V isits Requested Visits Authorized [id number] Pending Review 999 999 Reason for Visit * Reason Comments Medication Refill Encounter Details Date Type Department Care Team (Late st Contact Info) Description 05/26/2024 Refill [facility] [address] [place] [address] Andrés Nguyen MD [address] [place] [address] Lumbar radiculopathy Allergies Active Allergy [...] evening. 60 Tablet 4 Active DULoxetine HCl 30 MG Oral [...] 120 Tablet 4 05/26/20 24 Discontinu ed(Refill) documented as of this [...] encounter Miscellaneous Notes * Telephone Encounter - Maurice Rojas CPhT - 05/31/2024 8:39 AM EDT Patients insurance would like to inform the office that HYDROCODONE-ACETAMIN 5- 325 MG is not requiring review because No review needed. Test claim pays. Script needs sent to the pharmacy. Rx released Thank you, Nash Rojas (Jario) Aggregate Conveyor Operator III [facility] 05/31/2024, 8:39 AM * Telephone Encounter - Andrés Nguyen MD - 05/31/2024 7:30 AM EDTSigned Prescriptions: Disp Refills HYDROcodone-Acetaminophen 5-325 MG Oral Ta*120 Ta*0 Sig: Take 1 Tablet by mouth every 6 hours as needed for severe pain Authorizing Provider: ANDRÉS NGUYEN * Telephone Encounter - Leeroy Resendiz [facility] - 05/28/2024 9:37 AM EDTPending Prescriptions: Disp Refills HYDROcodone-Acetaminophen 5-325 MG Oral Ta*120 Ta*0 Sig: Take 1 Tablet by mouth every 6 hours as needed for severe pain * Telephone Encounter - Leeroy Resendiz [facility] - 05/28/2024 9:35 AM EDT I have reviewed the patients controlled substance dispensing history in the Prescription Drug Monitoring Program in compliance with the [facility] regulations before prescribing a controlled substance. PDMP checked on 05/28/2024. Pending Prescriptions: Disp Refills HYDROcodone-Acetaminophen 5-325 MG Oral T*120 Ta*0 Sig: Take 1 Tablet by mouth every 6 hours as needed for severe pain Last Visit: 01/14/2024 (in office), 08/27/2022 (telemedicine) Next Visit: 06/02/2024 Date medication was last filled: 04-20-24 Date medication is due for refill: 05-19-24 Pharmacy: [facility] Is this request for a [...] available upon request. Please approve if appropriate. Maggie Garcia.Ph. Clinical Pharmacist [facility] ([facility]) [address] [place] [address], [address]: [phone] 05/28/2024,9:35 AM * Telephone Encounter - Alexia Posada PHARM Tech - 05/27/2024 3:05 PM EDT Did you pend patient's preferred pharmacy and medication before forwarding?yes Pharmacy: [facility] Pending Prescriptions: Disp Refills HYDROcodone-Acetaminophen 5-325 MG Oral T*120 Ta*0 Sig: Take 1 Tablet by mouth every 6 hours as needed for severe pain Last Visit: 01/14/2024 (in office), 08/27/2022 (telemedicine) Next Visit: 06/02/2024 If no future appointments scheduled, and last appointment is greater than a year ago, please schedule patient for a follow-up appointment Last date the medication was ordered: 04/19 Is this request for a controlled substance?Yes, What was the last refill date 04/19 w/ quantity 120 and dosage prn and Urine Drug Screen Not completed Urine Drug Screen: Results for orders placed or performed in visit on 09/06/22 PAIN MANAGEMENT DRUG PANEL, URINE W/ INTERPRETATION Result Value Compliance Interpretation Based on the medication information provided and from [facility]: Please note hydrocodone and hydrocodone [...] Description 06/02/2024 10:00 AM EDT Office Visit [facility] [address] [place] [address] Andrés Nguyen MD [address] [place] [address] 06/10/2024 12:30 PM EDT Telemedicine Psychology [facility] [address] [place] [address] Telma Tyson, [facility] [address] [place] [address] 06/21/2024 2:00 PM EDT Telemedicine Psychiatry [place] [address] [place] [address] Kimi Bro MD [address] [place] [address] 06/23/2024 2:00 PM EDT Office Visit [facility] [address] [place] [address] JanuaryAndrés MD [address] [place] [address] 06/29/2024 3:00 PM EDT Telemedicine Neurology, [place] Shw[address] [place] [address] Chung Santos MD [address] [place] [address] 07/14/2024 3:00 PM EDT Office Visit Neurology [address] [place] [address] Ekta Carter CRNP [address] [place] [address] 07/21/2024 3:00 PM EDT Office Visit [facility] [place] [address] Arturo Ewing MD [address] [place] [address] 09/17/2024 2:00 PM EST Office [facility] [place] [address] Zonia Marvin Au.D. [address] [place] [address] Scheduled Procedures Name Priority Associated Diagnoses Date/Ti [...] D LEVEL ONCE IN A LIFETIME-USE SMARTSET# [id number] Completed 01/27/2023, 08/13/2022 Pneumococcal Vaccine: 65+ Years [...] Thoracic or lumbosacral neuritis or radiculitis, unspecified documented in this encounter Care Teams Tentmaker Relationship Specialty Start Date End Date January, Andrés Camacho MD [address] [place] [address] PCP - General Family Medicine 07/30/22 documented as of this encounter
--- OUTSIDE RECORDS SUMMARY | 2024-08-28 14:40 | External Medical Summary | Summary of Care ---
Author Name Unknown Organization [facility] Address [address] [place] [address] Phone [phone] Care Team Providers Care Filler Shaker Name Role Phone Edu Torre MD Primary Care Provider [phone] Reason for Visit * Reason Comments Medication Refill Encounter Details Date Type Department Care Team (Late st Contact Info) Description 06/01/2024 Refill [facility]rogyne[facility] [address] [place] [address] Shola Peñaloza MD [address] [place] [address] Allergies Active Allergy Reactions Criticality Noted Date Comments Prochlorperazine Other (Please comment) Medium 07/30/2022 Generalized weakness Morphine And Codeine Nausea/vomiting,Oth er (Please comment) Medium 07/30/2022 Room spinning as well documented as of this encounter (statuses as of 06/01/2024) Medications Medication Sig Dispensed Refills Start Date [...] in the evening. 60 Tablet 4 Active Mirabegron ER 50 MG Oral Tablet Extended Release 24 Hour (Myrbetriq) Take 1 Tablet by mouth in the morning. 90 Tablet 3 4 Active Myrbetriq 50 MG Oral Tablet Extended Release 24 Hour (Mirabegron ER) Take 1 Tablet by mouth in the morning. 30 Tablet 11 3 06/01/20 24 Discontinu ed(Refill) documented as of this encounter (statuses as of 06/01/2024) Active Problems Problem Noted Date Diagnosed Date [...] as of this encounter (statuses as of 06/01/2024) Resolved Problems Problem Noted Date Diagnosed Date Resolved Date Bipolar disorder 07/30/2022 11/15/2022 Overview: More recent.specified code listed on PL documented as of this encounter (statuses as of 06/01/2024) Immunizations Name Administration Dates Next Due Pneumococcal [...] encounter Miscellaneous Notes * Telephone Encounter - Shola Peñaloza MD - 06/01/2024 9:23 AM EDTSigned Prescriptions: Disp Refills Mirabegron ER 50 MG Oral Tablet Extended R*90 Tab*3 Sig: Take 1 Tablet by mouth in the morning. Authorizing Provider: SHOLA PEÑALOZA * Telephone Encounter - Shola Peñaloza MD - 06/01/2024 9:23 AM EDTSigned Prescriptions: Disp Refills Mirabegron ER 50 MG Oral Tablet Extended R*90 Tab*3 Sig: Take 1 Tablet by mouth in the morning. Authorizing Provider: SHOLA PEÑALOZA * Telephone Encounter - Alba Guido CPhT - 06/01/2024 9:11 AM EDT pharmacy called to request a 90 day supply for myrbetriq er 50mg. If agreeable please send to [facility]. Thank you, Alba Guido CphT Consultative Sales Associate III [facility]) 06/01/24 documented in this encounter Plan of Treatment Upcoming Encounters Date Type Department Care Team (Late st Contact Info) Description 06/02/2024 10:00 AM EDT Office Visit [facility] [address] [place] [address] Edu Torre MD [address] [place] [address] 06/10/2024 12:30 PM EDT Telemedicine Psychology [facility] [address] [place] [address] Telma Tyson, TRAILER TRUCK DRIVER [address] [place] [address] 06/21/2024 2:00 PM EDT Telemedicine Psychiatry [place] [address] [place] [address] Kimi Bro MD [address] [place] [address] 06/23/2024 2:00 PM EDT Office Visit [facility] [address] [place] [address] Edu Torre MD [address] [place] [address] 06/29/2024 3:00 PM EDT [facility] [address] [place] [address] Chung Santos MD [address] [place] [address] 07/14/2024 3:00 PM EDT Office Visit Neurology [address] [place] [address] Ekta Carter CRNP [address] [facility] [place] [id number] 07/21/2024 3:00 PM EDT Office Visit [facility], [facility] [place] [address] Arturo Ewing MD 27 [facility] [place] [address] 09/17/2024 2:00 PM EST Office Visit Audiology [facility] [place] [address] Zonia Marvin Au.D. [address] [facility] [place] [address] Scheduled Procedures Name Priority Associated Diagnoses Date/Ti [...] D LEVEL ONCE IN A LIFETIME-USE SMARTSET# [id number] Completed 01/27/2023, 08/13/2022 Pneumococcal Vaccine: 65+ Years [...] filedocumented as of this encounter Care Teams Filler Shaker Relationship Specialty Start Date End Date January, Edu Camacho MD [address] [place] [address] PCP - General Family Medicine 07/30/22 documented as of this encounter
--- OUTSIDE RECORDS SUMMARY | 2024-08-28 14:40 | External Medical Summary | Summary of Care ---
Author Name Unknown Organization [facility] Address [address] [place] [address] Phone [phone] Care Team Providers Care Records Analysis Manager Name Role Phone Andrés Nguyen MD Primary Care Provider [phone] Reason for Visit * Reason Comments Medication Refill Encounter Details Date Type Department Care Team (Late st Contact Info) Description 05/31/2024 Refill [facility] [address] [place] [address] Andrés Nguyen MD [address], [place] [id number] Allergies Active Allergy Reactions Criticality Noted Date [...] the morning. 90 Tablet 3 4 Active Topiramate 50 MG Oral Tablet [...] Telephone Encounter - Andrés Nguyen MD - 06/01/2024 9:16 AM EDTSigned Prescriptions: Disp Refills Topiramate 50 MG Oral Tablet (topAMAX) 90 Tab*3 Sig: Take 1 Tablet by mouth in the morning. Authorizing Provider: ANDRÉS NGUYEN * Telephone Encounter - Angelique Corado LPN - 06/01/2024 8:32 AM EDTPending Prescriptions: Disp Refills Topiramate 50 MG Oral Tablet (topAMAX) 90 Tab*3 Sig: Take 1 Tablet by mouth in the morning. * Telephone Encounter - Ranjit Sosa - 05/31/2024 5:06 PM EDTPending Prescriptions: Disp Refills Topiramate 50 MG Oral Tablet (topAMAX) 90 Tab*3 Sig: Take 1 Tablet by mouth in the morning. documented in this encounter Plan of Treatment Upcoming Encounters Date Type Department Care Team (Late st Contact Info) Description 06/02/2024 10:00 AM EDT Office Visit [place] [address] [place] [address] Andrés Nguyen MD [address] [place] [address] 06/10/2024 12:30 PM EDT Telemedicine Psychology [facility] [address] [place] [address] Telma Tyson, [facility] [address] [place] [address] 06/21/2024 2:00 PM EDT Telemedicine Psychiatry [place] [address] [place] [address] Kimi Bro MD [address] [place] [address] 06/23/2024 2:00 PM EDT Office Visit [place] [address] [place] [address] Andrés Nguyen MD [address] [place] [address] 06/29/2024 3:00 PM EDT Telemedicine Neurology, [place] [address] [place] [address] Chung Santos MD [address] [place] [address] 07/14/2024 3:00 PM EDT Office Visit Neurology [address] [place] [address] Ekta Carter CRNP [address] [facility] [place] [address] 07/21/2024 3:00 PM EDT Office Visit Urology, [facility] 132 [facility] [place] [address] Arturo Ewing MD [address] [place] [address] 09/17/2024 2:00 PM EST Office Visit Audiology [facility] 132 [facility] [place] [address] Zonia Marvin Au.D. 132 [facility] [place] [address] Scheduled Procedures Name Priority Associated Diagnoses Date/Ti [...] D LEVEL ONCE IN A LIFETIME-USE SMARTSET# 30535 Completed 01/27/2023, 08/13/2022 Pneumococcal Vaccine: 65+ Years [...] filedocumented as of this encounter Care Teams Records Analysis Manager Relationship Specialty Start Date End Date January, Andrés Camacho MD [address] [place] [address] PCP - General Family Medicine 07/30/22 documented as of this encounter
--- OUTSIDE RECORDS SUMMARY | 2024-08-28 14:40 | External Medical Summary ---
Author Name Unknown Address Unknown Organization K01:[facility] [address] [address] Laboratory Report Ordering Provider Test Date Status SANNA VARGAS 06/02/2024 12:09:24 Final Cutoff Concentrations:
Drug Level
Amphetamines 500 ng/mL
Benzodiazepines 100 ng/mL
Cannabinoids 50 ng/mL
Cocaine Metabolite 150 ng/mL
Fentanyl 1 ng/mL
Hydrocodone / Hydromorphone 300 ng/mL
Methadone Metabolite 100 ng/mL
Morphine / Codeine 300 ng/mL
Oxycodone / Oxymorphone 100 ng/mL

Screening results are presumptive and can only be used for medical purposes. Positive screening results are reflexed to confirmatory testing. Observation Date Value Abnormality Reference (Units ) Status Amphetamines, Urine screen 06/02/2024 12:09:24 Positive Abnormal Negative Final Benzodiazepines, Urine screen 06/02/2024 12:09:24 Positive Abnormal Negative Final Cannabinoids, Urine screen 06/02/2024 12:09:24 Negative Negative Final Cocaine Metabolite, Urine screen 06/02/2024 12:09:24 Negative Negative Final fentaNYL [Presence] in Urine by Screen method 06/02/2024 12:09:24 Negative Negative Final HYDROcodone [Presence] in Urine by Screen method 06/02/2024 12:09:24 Positive Abnormal Negative Final 2-Zuzjywlhnp-7,5-Dimeth yl-3,3-Diphenylpyrrolid ine (EDDP) [Presence] in Urine 06/02/2024 12:09:24 Negative Negative Final Opiates, Urine screen 06/02/2024 12:09:24 Positive Abnormal Negative Final oxyCODONE [Presence] in Urine by Screen method 06/02/2024 12:09:24 Negative Negative Final Performing Location [facility] [place] [address] [facility] [address]
--- OUTSIDE RECORDS SUMMARY | 2024-08-28 14:40 | External Medical Summary | Summary of Care ---
Author Name Unknown Organization [facility] Address [address] [place] [address] Phone [phone] Care Team Providers Care Grocery Store Associate Name Role Phone Edu Torre MD Primary Care Provider [phone] Reason for Visit * Reason Onset Date Comments Medication Refill 05/26/2024 Encounter Details Date Type Department Care Team (Late st Contact Info) Description 05/26/2024 Refill Psychiatry, [address] [place] [address] Yahaira Adams CRNP Bipolar I disorder, most recent episode depressed (HCC) Allergies Active Allergy Reactions Criticality Noted Date Comments Prochlorperazine Other (Please comment) Medium 07/30/2022 Generalized weakness Morphine And Codeine Nausea/vomiting,Oth er (Please comment) Medium 07/30/2022 Room spinning as well documented as of this encounter (statuses as of 05/27/2024) Medications Medication Sig Dispensed Refills Start Date [...] 90 Tablet 4 05/26/20 24 Discontinu ed(Refill) documented as of this encounter (statuses as of 05/27/2024) Active Problems Problem Noted Date Diagnosed Date [...] as of this encounter (statuses as of 05/27/2024) Resolved Problems Problem Noted Date Diagnosed Date Resolved Date Bipolar disorder 07/30/2022 11/15/2022 Overview: More recent.specified code listed on PL documented as of this encounter (statuses as of 05/27/2024) Immunizations Name Administration Dates Next Due Pneumococcal [...] 18 years and over) Not on file 01/10/202 4 Are you (or your family) atul eless [...] encounter Miscellaneous Notes * Telephone Encounter - Alexia Posada PHARM Tech - 05/27/2024 3:05 PM EDT Pharmacy checking status. Thank You, Alexia Posada [facility] Inspector III [facility] ([facility]) 05/27/2024, 3:05 PM * Telephone Encounter - Vikki Serra MD - 05/26/2024 1:13 PM EDTSigned Prescriptions: Disp Refills ARIPiprazole 15 MG Oral Tablet (Abilify) 30 Tab*0 Sig: Take 1 Tablet by mouth every night at bedtime.Authorizing Provider: VIKKI SERRA * Telephone Encounter - Jennifer Reich LPN - 05/26/2024 11:51 AM EDT Pharmacy requesting refill on Abilify. Medication was last filled on 02/27/2024 with 0 refills. Patient last seen on 05/07/2024 with return appointment scheduled for 06/21/2024. Patient had 0 cancelled appointments and 0 NO SHOW appointments. documented in this encounter Plan of Treatment Upcoming Encounters Date Type Department Care Team (Late st Contact Info) Description 06/02/2024 10:00 AM EDT Office Visit [facility] [address] [place] [address] Edu Torre MD [address] [place] [address] 06/10/2024 12:30 PM EDT Telemedicine Psychology [facility] [address] [place] [address] Telma Tyson, [facility] [address] [place] [address] 06/21/2024 2:00 PM EDT Telemedicine Psychiatry [place] [address] [place] [address] Kimi Bro MD [address] [place] [address] 06/23/2024 2:00 PM EDT Office Visit [facility] [address] [place] [address] Edu Torre MD [address] [place] [address] 06/29/2024 3:00 PM EDT Telemedicine Neurology, [place] [facility] [place] [address] [place] [address] [place] [address] Chung Santos MD [address] [place] [address] [place] [address] 07/14/2024 3:00 PM EDT Office Visit Neurology [address] [place] [address] Ekta Carter CRNP [address] [facility] [place] [address] 07/21/2024 3:00 PM EDT Office Visit Urology, [facility] [place] [address] Arturo Ewing MD [address] [place] [address] 09/17/2024 2:00 PM EST Office Visit Audiology [facility] [place] [address] Zonia Marvin Au.D. 132 [facility] [place] [address] Scheduled Procedures Name Priority Associated Diagnoses Date/Ti [...] D LEVEL ONCE IN A LIFETIME-USE SMARTSET# [id number] Completed 01/27/2023, 08/13/2022 Pneumococcal Vaccine: 65+ Years [...] most recent episode (or current) depressed, unspecified documented in this encounter Care Teams Grocery Store Associate Relationship Specialty Start Date End Date January, Edu Camacho MD [address] [place] [address] PCP - General Family Medicine 07/30/22 documented as of this encounter
--- OUTSIDE RECORDS SUMMARY | 2024-08-28 14:40 | External Medical Summary | Summary of Care ---
Author Name Unknown Organization [facility] Address [address] [place] [address] Phone [phone] Care Team Providers Care Union Steward Name Role Phone Edu Torre MD Primary Care Provider [phone] Reason for Visit * Reason Onset Date Comments Medication Refill 05/26/2024 Encounter Details Date Type Department Care Team (Late st Contact Info) Description 05/26/2024 Refill Psychiatry, [address] [place] [address] Yahaira Adams CRNP Bipolar I disorder, most recent episode depressed (HCC) Allergies Active Allergy Reactions Criticality Noted Date Comments Prochlorperazine Other (Please comment) Medium 07/30/2022 Generalized weakness Morphine And Codeine Nausea/vomiting,Oth er (Please comment) Medium 07/30/2022 Room spinning as well documented as of this encounter (statuses as of 05/26/2024) Medications Medication Sig Dispensed Refills Start Date [...] as of this encounter (statuses as of 05/26/2024) Active Problems Problem Noted Date Diagnosed Date [...] as of this encounter (statuses as of 05/26/2024) Resolved Problems Problem Noted Date Diagnosed Date Resolved Date Bipolar disorder 07/30/2022 11/15/2022 Overview: More recent.specified code listed on PL documented as of this encounter (statuses as of 05/26/2024) Immunizations Name Administration Dates Next Due Pneumococcal [...] encounter Miscellaneous Notes * Telephone Encounter - Vikki Serra MD [...] Description 06/10/2024 12:30 PM EDT Telemedicine Psychology [facility] 132 [facility] [place] [address] Telma Tyson, [facility] 132 [facility] [place] [address] 06/21/2024 2:00 PM EDT Telemedicine Psychiatry [place] [facility] [address] [place] [address] Kimi Bro MD [address] [place] [address] 06/23/2024 2:00 PM EDT Office Visit [place] [address] [place] [address] Edu Torre MD [address] [place] [address] 06/29/2024 3:00 PM EDT Telemedicine Neurology, [place] [facility] [place] [address] [place] [address] Chung Santos MD [address] [place] [address] 07/14/2024 3:00 PM EDT Office Visit Neurology [address] [place] [address] Ekta Carter CRNP [address] [facility] [place] [address] 07/21/2024 3:00 PM EDT Office Visit Urology, [facility] 132 [facility] [place] [address] Arturo Ewing MD [address] [place] [address] 09/17/2024 2:00 PM EST Office Visit Audiology [facility] [address] [place] [address] Zonia Marvin Au.D. [address] [place] [address] Scheduled Procedures Name Priority Associated Diagnoses Date/Ti [...] D LEVEL ONCE IN A LIFETIME-USE SMARTSET# [id number] Completed 01/27/2023, 08/13/2022 Pneumococcal Vaccine: 65+ Years [...] unspecified documented in this encounter Care Teams Union Steward Relationship Specialty Start Date End Date January, Edu Camacho MD [address] [place] [address] PCP - General Family Medicine 07/30/22 documented as of this encounter
--- OUTSIDE RECORDS SUMMARY | 2024-08-28 14:40 | External Medical Summary | Summary of Care ---
Author Name Unknown Organization [facility] Address [address] [place] [address] Phone [phone] Care Team Providers Care Dinkey Operator Slate Name Role Phone Andrés Nguyen MD Primary Care Provider [phone] Reason for Referral * Medication Prior Authorization - Pending Review Specialty Diagnoses / Procedures Referred By Contgabriel t Referred To Contact Diagnoses Lumbar radiculopathy Andrés Nguyen MD [address] [place] [address] Referral ID Status Reason Start Date Expiration Date V isits Requested Visits Authorized [id number] Pending Review 999 999 Reason for Visit * Reason Comments Medication Refill Encounter Details Date Type Department Care Team (Late st Contact Info) Description 05/26/2024 Refill [facility] [address] [place] [address] Andrés Nguyen MD [address] [place] [address] Lumbar radiculopathy Allergies Active Allergy [...] NGUYEN * Telephone Encounter - Leeroy Resendiz [facility] - 05/28/2024 9:37 AM EDTPending Prescriptions: Disp Refills HYDROcodone-Acetaminophen 5-325 MG Oral Ta*120 Ta*0 Sig: Take 1 Tablet by mouth every 6 hours as needed for severe pain * Telephone Encounter - Leeroy Resendiz [facility] - 05/28/2024 9:35 AM EDT I have reviewed the patients controlled substance dispensing history in the Prescription Drug Monitoring Program in compliance with the [facility] regulations before prescribing a controlled substance. PDMP checked on 05/28/2024. Pending Prescriptions: Disp Refills HYDROcodone-Acetaminophen 5-325 MG Oral T*120 Ta*0 Sig: Take 1 Tablet by mouth every 6 hours as needed for severe pain Last Visit: 01/14/2024 (in office), 08/27/2022 (telemedicine) Next Visit: 06/02/2024 Date medication was last filled: 04-20-24 Date medication is due for refill: 05-19-24 Pharmacy: [facility] Is this request for a controlled substance? Yes and Urine Drug Screen Not completed Toxicology results: Results for orders placed or performed in visit on 09/06/22 PAIN MANAGEMENT DRUG PANEL, URINE W/ INTERPRETATION Result Value Compliance Interpretation Based on the medication information provided and [facility]: Please note hydrocodone and hydrocodone [...] Garcia.Ph. Clinical Pharmacist [facility] ([facility]) [address] [place] [address], [address]: [phone] 05/28/2024,9:35 AM * Telephone Encounter - Alexia Posada PHARM Tech - 05/27/2024 3:05 PM EDT Did you pend patient's preferred pharmacy and medication before forwarding?yes Pharmacy: [facility] Pending Prescriptions: Disp Refills [...] on the medication information provided and from [facility]: Please note hydrocodone and hydrocodone [...] Description 06/02/2024 10:00 AM EDT Office [facility] [address] [facility] [address] Andrés Nguyen [facility] [address] [facility] [place] [id number] 06/10/2024 12:30 PM EDT Telemedicine Psychology [facility] [address] [facility] [place] [address] Telma Tyson, [facility] [place] [address] 06/21/2024 2:00 PM EDT Telemedicine Psychiatry [facility] [address] [place] [address] Kimi Bro MD [address] [place] [address] 06/23/2024 2:00 PM EDT Office Visit [facility] [address] [place] [address] Andrés Nguyen MD [address] [place] [address] 06/29/2024 3:00 PM EDT Telemedicine Neurology, [place] [facility] [address] [place] [address] Chung Santos MD [address] [place] [address] 07/14/2024 3:00 PM EDT Office Visit Neurology [address] [place] [address] Ekta Carter CRNP [address] [place] [address] 07/21/2024 3:00 PM EDT Office Visit Urology, [facility] 132 [facility] [place] [address] Arturo Ewing MD [address] [place] [address] 09/17/2024 2:00 PM EST Office Visit Audiology [facility] [address] [place] [address] Zonia Marvin Au.D. [address] [place] [address] Scheduled Procedures Name Priority Associated Diagnoses Date/Ti [...] D LEVEL ONCE IN A LIFETIME-USE SMARTSET# [id number] Completed 01/27/2023, 08/13/2022 Pneumococcal Vaccine: 65+ Years [...] unspecified documented in this encounter Care Teams Dinkey Operator Slate Relationship Specialty Start Date End Date January, Andrés Camacho MD [address] [place] [address] PCP - General Family Medicine 07/30/22 documented as of this encounter
--- OUTSIDE RECORDS SUMMARY | 2024-08-28 14:40 | External Medical Summary | Summary of Care ---
Author Name Unknown Organization [facility] Address [address] [place] [address] Phone [phone] Care Team Providers Care Home Care Manager Rn Name Role Phone Edu Torre MD Primary Care Provider [phone] Reason for Visit * Reason Onset Date Comments Test Results 05/10/2024 Labs Returning Call 05/10/2024 Encounter Details Date Type Department Care Team (Late st Contact Info) Description 05/10/2024 Telephone [facility] [address] [place] [address] Edu Torre MD [address] [place] [address] Test Results (Labs); Returning Call Allergies Active Allergy Reactions Criticality Noted Date Comments Prochlorperazine Other (Please comment) Medium 07/30/2022 Generalized weakness Morphine And Codeine Nausea/vomiting,Oth er (Please comment) Medium 07/30/2022 Room spinning as well documented as of this encounter (statuses as of 05/17/2024) Medications Medication Sig Dispensed Refills Start Date [...] taking.Reported on 04/19/2024 Benzonatate 100 MG Oral CapsuleIndications:Vi ral URI Take 2 Capsules by mouth 3 times a day as needed for Cough. 30 Capsule 1 09/12/2023 Active Additional Information Patient not taking.Reported [...] night at bedtime. 90 Tablet 02/27/2024 Active Alendronate Sodium 70 MG [...] as needed for severe pain 120 Tablet 04/19/2024 Active clonazePAM 0.5 MG Oral Tablet (KlonoPIN)Indications :Bipolar I disorder, most recent episode depressed (HCC) Take 1 Tablet by mouth in the morning and 1 Tablet in the evening. 60 Tablet 04/21/2024 Active DULoxetine HCl 30 MG Oral Capsule [...] 30 mg capsule 90 Capsule 05/07/2024 Active documented as of this encounter (statuses as of 05/17/2024) Active Problems Problem Noted Date Diagnosed Date [...] as of this encounter (statuses as of 05/17/2024) Resolved Problems Problem Noted Date Diagnosed Date Resolved Date Bipolar disorder 07/30/2022 11/15/2022 Overview: More recent.specified code listed on PL documented as of this encounter (statuses as of 05/17/2024) Immunizations Name Administration Dates Next Due Pneumococcal [...] encounter Miscellaneous Notes * Telephone Encounter - Deja Mackenzie OSA - 05/17/2024 1:59 PM EDT Pt aware & no further questions. * Telephone Encounter - Kirsten Galaviz OSA - 05/17/2024 1:46 PM EDT Patient has been notified of the message. Patient has no further questions. * Telephone Encounter - Leila Garcia LPN - 05/17/2024 12:50 PM EDT Attempted to call patient, lm that I was calling in regards to requested lab work and that I would send a MyG message as well. MyG message sent. * Telephone Encounter - Edu Torre MD - 05/17/2024 11:24 AM EDT Lab work looks okay. Should follow up with neurology (saw Dr. Santos previously) for ongoing care and further interpretation of results. Edu Torre MD * Telephone Encounter - Leila Garcia LPN - 05/17/2024 11:08 AM EDT Do all completed labs look within normal limits? * Telephone Encounter - Joan Almonte OSA - 05/14/2024 5:00 PM EDT Pt is calling to speak to someone about her test results that she didn't get on 05/12. Please call pt back. Thank you * Telephone Encounter - Kirsten Miranda LPN - 05/12/2024 10:19 AM EDT Spoke with pt and made aware of message below. Pt stated understanding. * Telephone Encounter - Edu Torre MD - 05/10/2024 5:20 PM EDT MRI shows general volume loss. Lab work that has resulted thus far is all within normal limits. Await further lab work to result. Dr. Santos should be in contact with his interpretation once all haveresulted. Edu Torre MD * Telephone Encounter - Leila Garcia LPN - 05/10/2024 12:02 PM EDT Please review completed lab work along with recent MRI as requested in the other encounter from today, thank you! * Telephone Encounter - Jan Fernandez OSA - 05/10/2024 11:10 AM EDT Who is Requesting Test Results: Patient Primary Care Provider : Edu Torre MD Tests Results Requested : Labs Date of Test : 05/08/24 Location of Test: [facility] Ordering Provider: Chung Santos MD Patient has [...] Hospital [address] [place] [address] Telma Tyson, [facility] [address] [place] [address] 06/23/2024 2:00 PM EDT Office Visit [place] [address] [place] [address] Edu Torre MD [address] [place] [address] 07/21/2024 3:00 PM EDT Office Visit Urology, [facility] [address] [place] [address] Arturo Ewing MD [address] [place] [address] 09/17/2024 2:00 PM EST Office Visit Audiology [facility] [address] [place] [address] Zonia Marvin Au.D. [address] [place] [address] Scheduled Procedures Name Priority Associated Diagnoses Date/Ti [...] 1998 Sigmoidoscopy 1998 Adult Wellness Visit 2019 COVID-19 Vaccine (2022- 4 season) 2023 11/20/2020, 10/23/2020 Colorectal Cancer Screening 08/29/2023 Fecal Occult Blood Test 08/29/2023 08/29/20, 08/29/2022 Mammogram 02/15/2024 02/14/2023, 02/14/2023 Influenza Vaccine (FLU shot) (#1) 2024 DXA Scan 01/27/2025 01/27/2023 Depression Monitoring 05/12/2025 05/12/2024 Lipid Panel 08/13/2027 08/13/2022 VITAMIN D LEVEL ONCE IN A LIFETIME-USE SMARTSET# [id number] Completed 01/27/2023, 08/13/2022 Pneumococcal Vaccine: 65+ Years [...] filedocumented as of this encounter Care Teams Home Care Manager Rn Relationship Specialty Start Date End Date January, Edu Camacho MD [address] [place] [facility] [place] [address] PCP - General Family Medicine 07/30/22 documented as of this encounter
--- OUTSIDE RECORDS SUMMARY | 2024-08-28 14:40 | External Medical Summary | Summary of Care ---
Author Name Unknown Organization [facility] Address [address] [place] [address] Phone [phone] Care Team Providers Care Chief Ultrasound Technologist Name Role Phone Edu Torre MD Primary Care Provider [phone] Reason for Visit * Reason Onset Date Comments TRIAGE 05/18/2024 Encounter Details Date Type Department Care Team (Late st Contact Info) Description 05/18/2024 Telephone Neurology [facility], Shweta Kebede [address] [facility] [place] [address] Services, Scheduling [address] [place] [address] TRIAGE Allergies Active Allergy Reactions Criticality Noted Date Comments Prochlorperazine Other (Please comment) Medium 07/30/2022 Generalized weakness Morphine And Codeine Nausea/vomiting,Oth er (Please comment) Medium 07/30/2022 Room spinning as well documented as of this encounter (statuses as of 05/21/2024) Medications Medication Sig Dispensed Refills Start Date [...] as of this encounter (statuses as of 05/21/2024) Active Problems Problem Noted Date Diagnosed Date [...] as of this encounter (statuses as of 05/21/2024) Resolved Problems Problem Noted Date Diagnosed Date Resolved Date Bipolar disorder 07/30/2022 11/15/2022 Overview: More recent.specified code listed on PL documented as of this encounter (statuses as of 05/21/2024) Immunizations Name Administration Dates Next Due Pneumococcal [...] Dr. Haynes and Ekta Carter at Neurology [facility] in [facility]. * Telephone Encounter - Anais Ramirez OSA - 05/18/2024 1:42 PM EDT Neuroscience Phone Call Form- Requested Information from caller: Who is calling patient Provider patient is established with: Dr Santos What is the concern or issue they are having: pt calling to [facility] appt follow up notes from February state: Return for Neurology [facility] Tom [facility]st [facility] or acute to accommodate.. Check-out Comments: RTC Neurology [facility] in person with Chung Santos on telecart,first available, may use Tom [facility] or acute slot to accommodate. Please help schedule labs and MRI Brain. She states she can't go to [place] she states its too far please advise on scheduling Phone number for nurse to call back: [phone] documented in this encounter Plan of Treatment Upcoming Encounters Date Type Department Care Team (Late st Contact Info) Description 06/10/2024 12:30 PM EDT Telemedicine Psychology [facility] [address] [place] [address] Telma Tyson, ASSISTANT SOFTBALL COACH [address] [place] [address] 06/21/2024 2:00 PM EDT Telemedicine Psychiatry [facility] [address] [place] [address] Kimi Bro MD [address] [place] [address] 06/23/2024 2:00 PM EDT Office Visit [facility] [address] [place] [address] JanuaryEdu MD [address] [place] [address] 07/21/2024 3:00 PM EDT Office Visit Urology, [facility] [address] [facility] [place] [address] Arturo Ewing MD [address] [place] [address] 09/17/2024 2:00 PM EST Office Visit Audiology [facility] [address] [facility] [place] [address] Zonia Marvin Au.D. [address] [facility] [place] [address] Scheduled Procedures Name Priority Associated Diagnoses Date/Ti [...] 1998 Adult Wellness Visit 2019 COVID-19 Vaccine (3 - 2022-2 4 season) 2023 11/20/2020, 10/23/2020 Colorectal Cancer Screening 08/29/2023 Fecal Occult Blood Test 08/29/2023 08/29/20, 08/29/2022 Mammogram 02/15/2024 02/14/2023, 02/14/2023 Influenza Vaccine (FLU shot) (#1) 2024 DXA Scan 01/27/2025 01/27/2023 Depression Monitoring 05/12/2025 05/12/2024 Lipid Panel 08/13/2027 08/13/2022 VITAMIN D LEVEL ONCE IN A LIFETIME-USE SMARTSET# [id number] Completed 01/27/2023, 08/13/2022 Pneumococcal Vaccine: 65+ Years [...] filedocumented as of this encounter Care Teams Chief Ultrasound Technologist Relationship Specialty Start Date End Date January, Edu Camacho MD [address] [place] [address] PCP - General Family Medicine 07/30/22 documented as of this encounter
--- OUTSIDE RECORDS SUMMARY | 2024-08-28 14:40 | External Medical Summary | Summary of Care ---
Author Name Unknown Organization [facility] Address [address] [place] [address] Phone [phone] Care Team Providers Care Room Service Attendant Name Role Phone Edu Torre MD Primary Care Provider [phone] Reason for Visit * Reason Onset Date Comments Test Results 05/10/2024 Labs Returning Call 05/10/2024 Encounter Details Date Type Department Care Team (Late st Contact Info) Description 05/10/2024 Telephone [facility] [address] [place] [address] Edu Torre MD [address] [place] [address] Test Results (Labs); Returning Call [...] Miscellaneous Notes * Telephone Encounter - Kirsten Galaviz OSA - 05/17/2024 1:46 PM EDT Patient has been notified of the message. Patient has no further questions. * Telephone Encounter - Leila Garcia LPN - 05/17/2024 12:50 PM EDT Attempted to call patient, lm that I was calling in regards to requested lab work and that I would send a SirionaG message as well. MyG message sent. * [...] of Test : 05/08/24 Location of Test: [facility] Ordering Provider: Chung Santos MD Patient has [...] Description 06/10/2024 12:30 PM EDT Telemedicine Psychology [facility] [address] [facility] [place] [address] Telma Tyson [facility] [address] [place] [address] 06/23/2024 2:00 PM EDT Office Visit [place] [address] [place] [phone] Edu Torre MD [address] [place] [address] 07/21/2024 3:00 PM EDT Office Visit Urology, [facility] [address] [facility] [place] [address] Arturo Ewing MD [address] [place] [address] 09/17/2024 2:00 PM EST Office Visit Audiology [facility] [place] [address] Zonia Marvin Au.D. [address] [place] [address] Scheduled Procedures Name Priority Associated Diagnoses Date/Ti [...] Adult Wellness Visit 2019 COVID-19 Vaccine (3 2022-2 4 season) 2023 11/20/2020, 10/23/2020 Colorectal Cancer Screening 08/29/2023 Fecal Occult Blood Test 08/29/2023 08/29/20, 08/29/2022 Mammogram 02/15/2024 02/14/2023, 02/14/2023 Influenza Vaccine (FLU shot) (#1) 2024 DXA Scan 01/27/2025 01/27/2023 Depression Monitoring 05/12/2025 05/12/2024 Lipid Panel 08/13/2027 08/13/2022 VITAMIN D LEVEL ONCE IN A LIFETIME-USE SMARTSET# [id number] Completed 01/27/2023, 08/13/2022 Pneumococcal Vaccine: 65+ Years [...] filedocumented as of this encounter Care Teams Room Service Attendant Relationship Specialty Start Date End Date January, Edu Camacho MD [address] [place] [address] PCP - General Family Medicine 07/30/22 documented as of this encounter
--- OUTSIDE RECORDS SUMMARY | 2024-08-28 14:40 | External Medical Summary | Summary of Care ---
Author Name Unknown Organization [facility] Address [address] [place] [address] Phone [phone] Care Team Providers Care Business Intelligence Administrator Name Role Phone Edu Torre MD Primary Care Provider [phone] Reason for Visit * Reason Onset Date Comments TRIAGE 05/18/2024 Encounter Details Date Type Department Care Team (Late st Contact Info) Description 05/18/2024 Telephone Neurology [facility], Shweta Kebede [address] [facility] [place] [address] Services, Scheduling [address] [place] [address] TRIAGE Allergies Active Allergy Reactions Criticality Noted [...] encounter Miscellaneous Notes * Telephone Encounter - Annia Haynes DO - 05/27/2024 2:39 PM EDT I have seen this pt before and according to your note from 03/10, Dr. Santos, "They stated that the reason they are seeing me is that they wanted to see a different provider than Dr. Haynes. Can discuss prison follow up once I have completed work up as they do live closer to [facility]. She last saw Dr. Santos 03/10/24 via telemed and is scheduled with Dr. Santos in person on 06/29 and with Ekta in [place] on 07/14. Best option may be [facility]. I'll defer tank terminal gauger f/u plan to Dr. Santos. Thanks Annia Haynes DO 05/27/2024 2:41 PM * Telephone Encounter - Chung Santos MD - 05/21/2024 11:08 AM EDT May offer to have an in person visit with Dr. Haynes and Ekta Carter at Neurology [facility] in [facility]. * Telephone Encounter - Anais Ramirez OSA - 05/18/2024 1:42 PM EDT Neuroscience Phone Call Form- Requested Information from caller: Who is calling patient Provider patient is established with: Dr Santos What is the concern or issue they are having: pt calling to [facility] appt follow up notes from February state: Return for Neurology [facility] Tom 1st avail ok [facility] or acute to accommodate.. Check-out Comments: RTC Neurology [facility] 2 in person with Chung Santos on telecart,first available, may use [facility] or acute slot to accommodate. Please help schedule labs and MRI Brain. [place] go [place] she [place] please advise on scheduling Phone number for nurse to call back: [phone] documented in this encounter Plan of Treatment Upcoming Encounters Date Type Department Care Team (Late st Contact Info) Description 06/02/2024 10:00 AM EDT Office Visit [facility] [address] [place] [address] JanuaryEdu MD [address] [place] [address] 06/10/2024 12:30 PM EDT Telemedicine Psychology [facility] [address] [facility] [place] [address] Telma Tyson, PLANER CHAIN OFFBEARER [address] [place] [address] 06/21/2024 2:00 PM EDT Telemedicine Psychiatry [facility] [address] [place] [address] Kimi Bro MD [address] [place] [address] 06/23/2024 2:00 PM EDT Office Visit [facility] [address] [place] [phone] Edu Torre MD [address] [place] [address] 06/29/2024 3:00 PM EDT Telemedicine Neurology, [place] [address] [place] [address] Chung Santos MD [address] [place] [address] 07/14/2024 3:00 PM EDT Office Visit Neurology [address] [place] [address] Ekta Carter CRNP [address] [facility] [place] [id number] 07/21/2024 3:00 PM EDT Office Visit Urology, [facility] 132 [facility] [place] [address] Arturo Ewing MD [address] [place] [address] 09/17/2024 2:00 PM EST Office Visit Audiology [facility] 132 [facility] [place] [address] Zonia Marvin Au.D. [address] [place] [address] Scheduled Procedures Name Priority Associated Diagnoses Date/Ti [...] D LEVEL ONCE IN A LIFETIME-USE SMARTSET# [id number] Completed 01/27/2023, 08/13/2022 Pneumococcal Vaccine: 65+ Years [...] filedocumented as of this encounter Care Teams Business Intelligence Administrator Relationship Specialty Start Date End Date January, Edu Camacho MD [address] [place] [address] PCP - General Family Medicine 07/30/22 documented as of this encounter
--- OUTSIDE RECORDS SUMMARY | 2024-08-28 14:40 | External Medical Summary ---
Author Name Unknown Address Unknown Organization K1H:[facility] - [address] [place] [address] Laboratory Report Ordering Provider Test Date Status VETO SANTIAGO 05/26/2024 06:50:00 Final Observation Date Value Abnormality Reference (Units ) Status Occult Blood (EIA) 05/26/2024 06:50:00 Positive Abnormal N egative Final Performing Location [facility] - [address] [place] [address]
--- OUTSIDE RECORDS SUMMARY | 2024-08-28 14:40 | External Medical Summary | Summary of Care ---
Author Name Unknown Organization [facility] Address [address] [place] [address] Phone [phone] Care Team Providers Care Property Assessment Monitor Name Role Phone Edu Torre MD Primary Care Provider [phone] Reason for Visit * Reason Onset Date Comments Medication Refill 05/31/2024 Status Check 05/31/2024 Encounter Details Date Type Department Care Team (Late st Contact Info) Description 05/31/2024 Refill Psychiatry [place] [address] [place] [address] Kimi Bro MD [address] [place] [address] Bipolar I disorder, most recent [...] Telephone Encounter - Anais Hugo LPN - 05/31/2024 12:54 PM EDTSigned Prescriptions: Disp Refills clonazePAM 0.5 MG Oral Tablet (KlonoPIN) 60 Tab*0 Sig: Take 1 Tablet by mouth in the morning and 1 Tablet in the evening.Authorizing Provider: CHARLIE HINOJOSA-- * Telephone Encounter - Charlie Hinojosa MD - 05/31/2024 12:41 PM EDTSigned Prescriptions: Disp Refills clonazePAM 0.5 MG Oral Tablet (KlonoPIN) 60 Tab*0 Sig: Take 1 Tablet by mouth in the morning and 1 Tablet in the evening. Authorizing Provider: CHARLIE HINOJOSA * Telephone Encounter - Anais Hugo LPN - 05/31/2024 12:38 PM EDTPending Prescriptions: Disp Refills clonazePAM 0.5 MG Oral Tablet (KlonoPIN) 60 Tab*0 Sig: Take 1 Tablet by mouth in the morning and 1 Tablet in the evening. * Telephone Encounter - Anais Hugo LPN - 05/31/2024 12:36 PM EDT Pharmacy requesting refill on klonopin. Medication was last filled on 04/21/24 with 0 refills. Patient last seen on 05/07/24 with return appointment scheduled for 06/21/24. Patient had 0 cancelled appointments and 0 NO SHOW appointments. * Telephone Encounter - Karen Roy OSA - 05/31/2024 11:12 AM EDT Patient calling in to check on the status of previous message for clonazepam. Please call pt back to advise. * Telephone Encounter - Anais Leger multifocal button grinder - 05/31/2024 9:31 AM EDT Patient is up to date for office visits. Pending Prescriptions: Disp Refills clonazePAM 0.5 MG Oral Tablet (KlonoPIN) 60 Tab*0 Sig: Take 1 Tablet by mouth in the morning and 1 Tablet in the evening. Last Visit: Visit date not found (in office), Visit date not found (telemedicine) Next Visit: 06/21/2024 If no future appointments scheduled, and last appointment is greater than a year ago, please schedule patient for a follow-up appointment Last date the medication was ordered: 04/21/2024 Pharmacy: [facility] Is this request for a controlled substance?Yes, and Urine Drug Screen was NOT completed Urine Drug Screen: Results for orders placed or performed in visit on 09/06/22 PAIN MANAGEMENT DRUG PANEL, URINE W/ INTERPRETATION Result Value Compliance Interpretation Based on the medication information provided and from [facility]: Please note hydrocodone and hydrocodone [...] Description 06/02/2024 10:00 AM EDT Office Visit [facility] [address] [place] [address] Edu Torre MD [address], [place] [address] 06/10/2024 12:30 PM EDT Telemedicine Psychology [facility] [address] [place] [address] Telma Tyson, [facility] [address] [place] [address] 06/21/2024 2:00 PM EDT Telemedicine Psychiatry [facility] [address] [place] [address] Kimi Bro MD [address] [place] [address] 06/23/2024 2:00 PM EDT Office Visit [facility] [address] [place] [phone] Edu Torre MD [address] [place] [address] 06/29/2024 3:00 PM EDT Telemedicine Neurology, [place] [address] [place] [address] [place] [address] Chung Santos MD [address] [place] [address] [place] [address] 07/14/2024 3:00 PM EDT Office Visit Neurology [address] [place] [address] Ekta Carter CRNP [address] [place] [id number] 07/21/2024 3:00 PM EDT Office Visit Urology, [facility] [place] [address] Arturo Ewign MD [address] [place] [address] 09/17/2024 2:00 PM EST Office Visit Audiology [facility] 132 [facility] [place] [address] Zonia Marvin Au.D. 132 [facility] [address] Scheduled Procedures Name Priority Associated Diagnoses Date/Ti [...] D LEVEL ONCE IN A LIFETIME-USE SMARTSET# [id number] Completed 01/27/2023, 08/13/2022 Pneumococcal Vaccine: 65+ Years [...] unspecified documented in this encounter Care Teams Property Assessment Monitor Relationship Specialty Start Date End Date January, Edu Camacho MD [address] [place] [address] PCP - General Family Medicine 07/30/22 documented as of this encounter
--- OUTSIDE RECORDS SUMMARY | 2024-08-28 14:40 | External Medical Summary ---
Author Name Unknown Address Unknown Organization K01:[facility] [place] [address] [address] [facility]. [facility] [address] Laboratory Report Ordering Provider Test Date Status SANNA VARGAS 06/02/2024 12:09:24 Final Cutoff Concentrations:
D rug Level
Amphetamine 50 ng/mL
Methamphetamine 50 ng/mL
Phentermine 50 ng/mL
Pseudoephedrine 50 ng/mL
MDMA/Ecstasy 50 ng/mL

This test was developed and its performance characteristics determined by [employer] [facility] It has not been cleared or approved by the US Food and Drug Administration. Observation Date Value Abnormality Reference (Units ) Status METHODOLOGY 06/02/2024 12:09:24 LC-MS/MS Final Methamphetamine, Urine confirmatory 06/02/2024 12:09:24 Negative Negative Final Phentermine cutoff [Mass/volume] in Urine for Confirmatory method 06/02/2024 12:09:24 Negative Negative Final PSEUDOEPHEDRINE CONFIRMATION, U (CATEGORY) 06/02/2024 12:09:24 Negative Negative Final 2-Dzytueclny-3,5-Dimethyl -3,3-Diphenylpyrrolidine (EDDP) [Mass/volume] in Urine by Confirmatory method 06/02/2024 12:09:24 Negative Negative Final Amphetamines, Urine screen 06/02/2024 12:09:24 Negative Negative Final Performing Location [facility] [place] [address] [address] [facility] [address]
--- OUTSIDE RECORDS SUMMARY | 2024-08-28 14:41 | External Medical Summary | Summary of Care ---
Author Name Unknown Organization [facility] Address [address] [place] [address] Phone [phone] Care Team Providers Care Director Of Kids Name Role Phone Edu Torre MD Primary Care Provider [phone] Reason for Visit * Reason Onset Date Comments Test Results 05/10/2024 Labs Encounter Details Date Type Department Care Team (Late st Contact Info) Description 05/10/2024 Telephone [facility] [address] [place] [address] Edu Torre MD [address] [place] [address] Test Results (Labs) Allergies Active Allergy Reactions Criticality Noted Date Comments Prochlorperazine Other (Please comment) Medium 07/30/2022 Generalized weakness Morphine And Codeine Nausea/vomiting,Oth er (Please comment) Medium 07/30/2022 Room spinning as well documented as of this encounter (statuses as of 05/12/2024) Medications Medication Sig Dispensed Refills Start Date [...] as of this encounter (statuses as of 05/12/2024) Active Problems Problem Noted Date Diagnosed Date [...] as of this encounter (statuses as of 05/12/2024) Resolved Problems Problem Noted Date Diagnosed Date Resolved Date Bipolar disorder 07/30/2022 11/15/2022 Overview: More recent.specified code listed on PL documented as of this encounter (statuses as of 05/12/2024) Immunizations Name Administration Dates Next Due Pneumococcal [...] of Test : 05/08/24 Location of Test: [facility] Ordering Provider: Chung Santos MD Patient [...] Description 06/10/2024 12:30 PM EDT Telemedicine Psychology [facility] [address] [place] [address] Telma Tyson, [facility] [address] [place] [address] 06/23/2024 2:00 PM EDT Office Visit [place] [address] [place] [address] Edu Torre MD [address] [place] [address] 07/21/2024 3:00 PM EDT Office Visit Urology, [facility] [address] [place] [address] Arturo Ewing MD [address] [place] [address] 09/17/2024 2:00 PM EST Office Visit Audiology [facility] [address] [place] [address] Zonia Marvin Au.D. [address] [place] [address] Scheduled Procedures Name Priority Associated Diagnoses Date/Ti [...] 2000 Adult Wellness Visit 2019 COVID-19 Vaccine (2022-10 4 season) 2023 11/20/2020, 10/23/2020 Colorectal Cancer Screening 08/29/2023 Fecal Occult Blood Test 08/29/2023 08/29/20, 08/29/2022 Mammogram 02/15/2024 02/14/2023, 02/14/2023 Influenza Vaccine (FLU shot) (#1) 2024 DXA Scan 01/27/2025 01/27/2023 Depression Monitoring 03/01/2025 03/01/2024 Lipid Panel 08/13/2027 08/13/2022 VITAMIN D LEVEL ONCE IN A LIFETIME-USE SMARTSET# [id number] Completed 01/27/2023, 08/13/2022 Pneumococcal Vaccine: 65+ Years [...] filedocumented as of this encounter Care Teams Director Of Kids Relationship Specialty Start Date End Date January, Edu Camacho MD [address] [facility] [place] [address] PCP - General Family Medicine 07/30/22 documented as of this encounter
--- OUTSIDE RECORDS SUMMARY | 2024-08-28 14:41 | External Medical Summary | Summary of Care ---
Author Name Unknown Organization [facility] Address [address] [place] [address] Phone [phone] Care Team Providers Care Legislative Correspondent Name Role Phone Edu Torre MD Primary Care Provider [phone] Reason for Visit * Reason Onset Date Comments Test Results 05/10/2024 Labs Encounter Details Date Type Department Care Team (Late st Contact Info) Description 05/10/2024 Telephone [facility] [address] [place] [address] Edu Torre MD [address] [place] [address] Test Results (Labs) Allergies Active [...] work and that I would send a [email or web address]tk[employer] message as well. MyG message sent. * [...] of Test : 05/08/24 Location of Test: [facility] Ordering Provider: Chung Santos MD Patient has [...] Description 06/10/2024 12:30 PM EDT Telemedicine Psychology [facility] [address] [facility] [place] [address] Telma Tyson, [facility] [address] [place] [address] 06/23/2024 2:00 PM EDT Office Visit [facility] [address] [place] [address] JanuaryEdu MD [address] [place] [address] 07/21/2024 3:00 PM EDT Office Visit Urology, [facility] [address] [facility] [place] [address] Arturo Ewing MD [address] [place] [address] 09/17/2024 2:00 PM EST Office Visit Audiology [facility] 132 [facility] [place] [address] Zonia Marvin Au.D. [address] [place] [address] Scheduled Procedures Name Priority Associated Diagnoses Date/Ti [...] D LEVEL ONCE IN A LIFETIME-USE SMARTSET# [id number] Completed 01/27/2023, 08/13/2022 Pneumococcal Vaccine: 65+ Years [...] filedocumented as of this encounter Care Teams Legislative Correspondent Relationship Specialty Start Date End Date January, Edu Camacho MD [address] [place] [address] PCP - General Family Medicine 07/30/22 documented as of this encounter
--- OUTSIDE RECORDS SUMMARY | 2024-08-28 14:41 | External Medical Summary ---
Author Name Unknown Address Unknown Organization : Laboratory Report Ordering Provider Test Date Status SANNA VARGAS 05/08/2024 15:10:54 Final Observation Date Value Abnormality Reference (Units ) Status Homocysteine 05/08/2024 15:10:54 10.4 Above high normal <10.4 (umol/L) Final Homocysteine is increased by functional deficiency of
folate or vitamin B12. Testing for methylmalonic acid
differentiates between these deficiencies. Other causes
of increased homocysteine include renal failure, folate
antagonists such as methotrexate and phenytoin, and
exposure to nitrous oxide.
Monae Kaiser, et al. [employer] Attorney Med. 1999;131(5):331-9.

Test Performed at:
[employer] [facility]
[address] [facility]
[place] [address]
Feliciano Bateman M.D., Ph.D.,Director of Laboratories Performing Location
--- OUTSIDE RECORDS SUMMARY | 2024-08-28 14:41 | External Medical Summary ---
Author Name Unknown Address Unknown Organization K01:[facility] [address] [place] [address] Laboratory Report Ordering Provider Test Date Status YAMILA WINN 05/08/2024 15:10:54 Final Observation Date Value Abnormality Reference (Units ) Status Magnesium 05/08/2024 15:10:54 2.4 1.5-2.6 (m g/dL) Final Performing Location [facility] [address] [place] [address]
--- OUTSIDE RECORDS SUMMARY | 2024-08-28 14:41 | External Medical Summary | Summary of Care ---
Author Name Unknown Organization [facility] Address [address] [place] [address] Phone [phone] Care Team Providers Care Business Office Representative Name Role Phone Edu Torre MD Primary Care Provider Reason for Visit * Reason Onset Date Comments Test Results 05/10/2024 Labs Encounter Details Date Type Department Care Team (Late st Contact Info) Description 05/10/2024 Telephone [facility] [address] [place] [address] Edu Torre MD [address] [place] [address] Test Results (Labs) Allergies Active [...] Await further lab work to result. Dr. Santso should be in contact with his interpretation [...] of Test : 05/08/24 Location of Test: [facility] Ordering Provider: Chung Santos MD [...] Description 06/10/2024 12:30 PM EDT Telemedicine Psychology [address] [place] [address] Telma Tyson, [facility] [address] [place] [address] 06/23/2024 2:00 PM EDT Office Visit [facility] [address] [place] [facility] [address] Edu Torre MD [address] [place] [address] 07/21/2024 3:00 PM EDT Office Visit Urology, [facility] [address] [place] [address] Arturo Ewing MD [address] [place] [address] 09/17/2024 2:00 PM EST Office Visit Audiology [facility] [address] [place] [address] Zonia Marvin Au.D. [address] [place] [address] Scheduled Procedures Name Priority Associated Diagnoses Date/Ti [...] D LEVEL ONCE IN A LIFETIME-USE SMARTSET# [id number] Completed 01/27/2023, 08/13/2022 Pneumococcal Vaccine: 65+ Years [...] as of this encounter Care Teams Business Office Representative Relationship Specialty Start Date End Date January, Edu Camacho MD [address] [place] [address] PCP - General Family Medicine 07/30/22 documented as of this encounter
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
--- OUTSIDE RECORDS SUMMARY | 2024-08-28 14:41 | External Medical Summary ---
Author Name Unknown Address Unknown Organization K01:[facility] [place] [address] [place] [address] Laboratory Report Ordering Provider Test Date Status SANNA VARGAS 05/08/2024 15:10:54 Final Observation Date Value Abnormality Reference (Units ) Status Folic Acid 05/08/2024 15:10:54 15.1 >4.5 (ng/ mL) Final Performing Location [facility] [address] [place] [address]
--- OUTSIDE RECORDS SUMMARY | 2024-08-28 14:41 | External Medical Summary | Summary of Care ---
Author Name Unknown Organization [facility] Address [address] [place] [address] Phone [phone] Care Team Providers Care Personnel Administrator Name Role Phone Edu Torre MD Primary Care Provider Reason for Visit * Reason Onset Date Comments Test Results 05/10/2024 Labs Encounter Details Date Type Department Care Team (Late st Contact Info) Description 05/10/2024 Telephone [facility] [address] [place] [address] Edu Torre MD [address] [place] [address] Test Results (Labs) Allergies Active Allergy Reactions Criticality Noted Date Comments Prochlorperazine Other (Please comment) Medium 07/30/2022 Generalized weakness Morphine And Codeine Nausea/vomiting,Oth er (Please comment) Medium 07/30/2022 Room spinning as well documented as of this encounter (statuses as of 05/14/2024) Medications Medication Sig Dispensed Refills Start Date [...] as of this encounter (statuses as of 05/14/2024) Active Problems Problem Noted Date Diagnosed Date [...] as of this encounter (statuses as of 05/14/2024) Resolved Problems Problem Noted Date Diagnosed Date Resolved Date Bipolar disorder 07/30/2022 11/15/2022 Overview: More recent.specified code listed on PL documented as of this encounter (statuses as of 05/14/2024) Immunizations Name Administration Dates Next Due Pneumococcal [...] encounter Miscellaneous Notes * Telephone Encounter - Joan Almonte OSA [...] Test : 05/08/24 Location of Test: [facility] Ordering Provider: Chung Santos MD [facility] [address] [facility] [place] [address] Telma Tyson, [facility] [address] [place] [address] 06/23/2024 2:00 PM EDT Office Visit [facility] [address] [facility] [phone] Edu Torre MD [address] [place] [facility] [place] [address] 07/21/2024 3:00 PM EDT Office Visit Urology, [facility] [address] [place] [address] Arturo Ewing MD [address] [place] [address] 09/17/2024 2:00 PM EST Office Visit Audiology [facility] [address] [place] [address] Zonia Marvin Au.D. [address] [place] [address] Scheduled Procedures Name Priority Associated Diagnoses Date/Ti [...] D LEVEL ONCE IN A LIFETIME-USE SMARTSET# [id number] Completed 01/27/2023, 08/13/2022 Pneumococcal Vaccine: 65+ Years [...] filedocumented as of this encounter Care Teams Personnel Administrator Relationship Specialty Start Date End Date January, Edu Camacho MD [address] [place] [address] PCP - General Family Medicine 07/30/22 documented as of this encounter
--- OUTSIDE RECORDS SUMMARY | 2024-08-28 14:41 | External Medical Summary ---
Author Name Unknown Address Unknown Organization K01[facility] [address] [facility] [address] Laboratory Report Ordering Provider Test Date Status SANNA VARGAS 05/08/2024 15:10:54 Final Observation Date Value Abnormality Reference (Units ) Status Phosphate 05/08/2024 15:10:54 2.7 2.5-4.8 (m g/dL) Final Performing Location [facility] [address] [facility] [address]
--- OUTSIDE RECORDS SUMMARY | 2024-08-28 14:41 | External Medical Summary | Summary of Care ---
Author Name Unknown Organization [facility] Address [address] [place] [address] Phone [phone] Care Team Providers Care Transportation Coordinator Name Role Phone Edu Torre MD Primary Care Provider Encounter Details Date Type Department Care Team (Late st Contact Info) Description 04/23/2024 Population Health External Data Unspecified Department Allergies Active Allergy Reactions Criticality Noted Date Comments Prochlorperazine Other (Please comment) Medium 07/30/2022 Generalized weakness Morphine And Codeine Nausea/vomiting,Oth er (Please comment) Medium 07/30/2022 Room spinning as well documented as of this encounter (statuses as of 04/23/2024) Medications Medication Sig Dispensed Refills Start Date [...] Capsule before bedtime. 180 Capsule 01/02/2024 Active DULoxetine HCl 20 MG Oral Capsule [...] in the evening. 60 Tablet 04/21/2024 Active documented as of this encounter (statuses as of 04/23/2024) Active Problems Problem Noted Date Diagnosed Date [...] as of this encounter (statuses as of 04/23/2024) Resolved Problems Problem Noted Date Diagnosed Date Resolved Date Bipolar disorder 07/30/2022 11/15/2022 Overview: More recent.specified code listed on PL documented as of this encounter (statuses as of 04/23/2024) Immunizations Name Administration Dates Next Due Pneumococcal [...] Care Team (Late st Contact Info) Description 05/03/2024 2:30 PM EDT Office Visit Psychiatry, [facility] [address] [place] [address] Yahaira Adams CRNP [address] [facility] [place] [address] 05/07/2024 2:00 PM EDT Office Visit Audiology [facility] [address] [facility] [place] [address] Zonia Marvin Au.D. [address] [place] [address] 05/08/2024 2:15 PM EDT Imaging Radiology [facility] [address] [facility] [place] [address] 06/23/2024 2:00 PM EDT Office Visit Family [facility] [address] [place] [phone] Edu Torre MD [address] [place] [address] 07/21/2024 3:00 PM EDT Office Visit Urology, [facility] [address] [facility] [place] [address] Arturo Ewing MD [address] [place] [address] Scheduled Procedures Name Priority Associated Diagnoses Date/Ti me COLONOSCOPY FLEXIBLE PROXIMAL DIAGNOSTIC Adenomatous polyp of colon, unspecified part of colon Gastroesophageal reflux disease with esophagitis without hemorrhage ESOPHAGOGASTRODUODENOSCOPY ( EGD), FLEXIBLE, TRANSORAL, DIAGNOSTIC Adenomatous [...] D LEVEL ONCE IN A LIFETIME-USE SMARTSET# [id number] Completed 01/27/2023, 08/13/2022 Pneumococcal Vaccine: 65+ Years [...] filedocumented as of this encounter Care Teams Transportation Coordinator Relationship Specialty Start Date End Date January, Edu Camacho MD [address] [place] [facility] [place] [address] PCP - General Family Medicine 07/30/22 documented as of this encounter
--- OUTSIDE RECORDS SUMMARY | 2024-08-28 14:41 | External Medical Summary | Summary of Care ---
Author Name Unknown Organization [facility] Address [address] [place] [address] Phone [phone] Care Team Providers Care Tree Tapping Laborer Name Role Phone Edu Torre MD Primary Care Provider [phone] Reason for Visit * Reason Onset Date Comments Test Results 05/10/2024 Labs Encounter Details Date Type Department Care Team (Late st Contact Info) Description 05/10/[address] [facility] [address] [place] [address] Edu Torre MD [address] [place] [address] Test Results (Labs) Allergies Active [...] of Test : 05/08/24 Location of Test: [facility] Ordering Provider: Chung Santos MD Patient has [...] Description 06/10/2024 12:30 PM EDT Telemedicine Psychology [facility] [address] [place] [address] Telma Tyson, RAGHU [address] [place] [address] 06/23/2024 2:00 PM EDT [address] [address] Edu Torre MD [address] [place] [address] 07/21/2024 3:00 PM EDT Office Visit Urology, [facility] 132 [place] [address] Arturo Ewing MD 27 [facility] [place] [address] 09/17/2024 2:00 PM EST Office Visit Audiology [facility] 132 [facility] [place] [address] Zonia Marvin Au.D. 132 [facility] [place] [address] Scheduled Procedures Name Priority Associated Diagnoses Date/Ti [...] D LEVEL ONCE IN A LIFETIME-USE SMARTSET# [id number] Completed 01/27/2023, 08/13/2022 Pneumococcal Vaccine: 65+ Years [...] filedocumented as of this encounter Care Teams Tree Tapping Laborer Relationship Specialty Start Date End Date January, Edu Camacho MD [address] [place] [address] PCP - General Family Medicine 07/30/22 documented as of this encounter
--- OUTSIDE RECORDS SUMMARY | 2024-08-28 14:41 | External Medical Summary ---
Author Name Unknown Address Unknown Organization : Laboratory Report Ordering Provider Test Date Status SANNA VARGAS 05/08/2024 15:10:54 Final Observation Date Value Abnormality Reference (Units ) Status Thiamine [Moles/volume] in Blood 05/08/2024 15:10:54 139 78-185 (nmol/L) Final Vitamin supplementation with in 24 hours prior to
blood draw may affect the accuracy of the results.
This test was developed and its analytical performance
characteristics have been determined by [facility] [place]. It has
not been cleared or approved by the U.S. Food and Drug
Administration. This assay has been validated pursuant
to the CLIA regulations and is used for clinical
purposes.

Test Performed at:
[facility]
[address] [facility] [place] [address]
Feliciano Bateman M.D., Ph.D.,Director of Laboratories Performing Location
--- OUTSIDE RECORDS SUMMARY | 2024-08-28 14:41 | External Medical Summary | Summary of Care ---
Author Name Unknown Organization [facility] Address [address] [place] [address] Phone [phone] Care Team Providers Care Net Developer Consultant Name Role Phone Edu Torre MD Primary Care Provider [phone] Reason for Visit * Reason Onset Date Comments Other 04/21/2024 Encounter Details Date Type Department Care Team (Late st Contact Info) Description 04/21/2024 Telephone Psychiatry, Zachary Mortensen 200 [facility] [place] [address] Yahaira Adams CRNP 200 [facility] [place] [address] Other (/) Allergies Active Allergy Reactions Criticality Noted Date Comments Prochlorperazine Other (Please comment) Medium 07/30/2022 Generalized weakness Morphine And Codeine Nausea/vomiting,Oth er (Please comment) Medium 07/30/2022 Room spinning as well documented as of this encounter (statuses as of 04/22/2024) Medications Medication Sig Dispensed Refills Start Date [...] for severe pain 120 Tablet 04/19/2024 Active documented as of this encounter (statuses as of 04/22/2024) Active Problems Problem Noted Date Diagnosed Date [...] as of this encounter (statuses as of 04/22/2024) Resolved Problems Problem Noted Date Diagnosed Date Resolved Date Bipolar disorder 07/30/2022 11/15/2022 Overview: More recent.specified code listed on PL documented as of this encounter (statuses as of 04/22/2024) Immunizations Name Administration Dates Next Due Pneumococcal [...] Telephone Encounter - Yahaira Adams CRNP - 04/22/2024 6:01 PM EDT T/C to Danni in response to her voice mail that pt was hospitalized for suicide attempt. Danni relates pt took overdose of medication and remains in [facility] ED awaiting IP psych bed. Possibel options are [facility] or [place]. Danni states pt is very depressed. Flat and not herself. 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 Danni is not comfortable with this. Provided education and further resource for ECT. Supported medication simplification during IP treatment. Danni will keep provider updated. Discussed provider leaving practice and recommendation for transfer to new provider within [facility] system. * Telephone Encounter - Kenna Quintanilla OSA - 04/21/2024 2:57 PM EDT Patient's daughter calling - mom was admitted last night to [facility] for a suicide attempt. Danni would like to talk to you about this - [phone] documented in this encounter Plan of Treatment Upcoming Encounters Date Type Department Care Team (Late st Contact Info) Description 05/03/2024 2:30 PM EDT Office Visit PsychiatryZachary [address] [place] [address] Bryan Yahaira VigilDEWAYNE nielsen [address] [place] [address] 05/07/2024 2:00 PM EDT Office Visit Audiology [facility] 132 [facility] [place] [address] Zonia Marvin Au.D. 132 [facility] [address] 05/08/2024 2:15 PM EDT [facility] 132 [facility] [place] [address] 06/23/2024 2:00 PM EDT Office Visit [facility] [address] [place] [address] JanuaryEdu MD [address] [place] [address] 07/21/2024 3:00 PM EDT Office Visit Urology, [facility] 132 [facility] [address] Arturo Ewing MD [address] [place] [address] Scheduled Procedures Name Priority Associated Diagnoses Date/Ti [...] D LEVEL ONCE IN A LIFETIME-USE SMARTSET# [id number] Completed 01/27/2023, 08/13/2022 Pneumococcal Vaccine: 65+ Years [...] filedocumented as of this encounter Care Teams Net Developer Consultant Relationship Specialty Start Date End Date January, Edu Camacho MD [address] [place] [address] PCP - General Family Medicine 07/30/22 documented as of this encounter
--- OUTSIDE RECORDS SUMMARY | 2024-08-28 14:41 | External Medical Summary | Summary of Care ---
Author Name Unknown Organization [facility] Address [address] [place] [address] Phone [phone] Care Team Providers Care Fire Investigation Manager Name Role Phone Edu Torre MD Primary Care Provider [phone] Reason for Visit * Reason Onset Date Comments Appointment 05/12/2024 Encounter Details Date Type Department Care Team (Late st Contact Info) Description 05/12/2024 Telephone Psychiatry, Zachary Thayer 200 [facility] [place] [address] Yahaira Adams CRNP 200 [facility] [place] [address] Appointment Allergies Active Allergy Reactions Criticality Noted [...] encounter Miscellaneous Notes * Telephone Encounter - Cecilia Dwyer OSA - 05/12/2024 1:19 PM EDT Outbound call to patient to schedule with Dr. Mauricio Bro, she is a transfer from [facility]. Please schedule with Dr. Mauricio Bro for next available. LMOM, provided call back number. ESTER Aly documented in this encounter Plan of Treatment Upcoming Encounters Date Type Department Care Team (Late st Contact Info) Description 06/10/2024 12:30 PM EDT Telemedicine Psychology [facility] [address] [place] [address] Telma Tyson, SIGN WRITER LETTERER OR PAINTER [address] [place] [address] 06/23/2024 2:00 PM EDT Office Visit [facility] [address] [facility] [phone] Edu Torre MD [address] [facility] [address] 07/21/2024 3:00 PM EDT Office Visit Urology, [facility] [address] [place] [address] Arturo Ewing MD [address] [place] [address] 09/17/2024 2:00 PM EST Office Visit Audiology [facility] [address] [place] [address] Zonia Marvin Au.D. [address] [place] [address] Scheduled Procedures Name Priority Associated Diagnoses Date/Ti [...] D LEVEL ONCE IN A LIFETIME-USE SMARTSET# [id number] Completed 01/27/2023, 08/13/2022 Pneumococcal Vaccine: 65+ Years [...] filedocumented as of this encounter Care Teams Fire Investigation Manager Relationship Specialty Start Date End Date January, Edu Camacho MD [address] [place] [address] PCP - General Family Medicine 07/30/22 documented as of this encounter
--- OUTSIDE RECORDS SUMMARY | 2024-08-28 14:41 | External Medical Summary | Summary of Care ---
Author Name Unknown Organization [facility] Address [address] [place] [address] Phone [phone] Care Team Providers Care Enterprise Resource Planner Name Role Phone Edu Torre MD Primary Care Provider [phone] Reason for Visit * Reason Onset Date Comments Appointment 05/05/2024 MRI Encounter Details Date Type Department Care Team (Late st Contact Info) Description 05/05/2024 Telephone Radiology [facility] 1st [facility] [address] [facility] [place] [phone] Jaja Contreras, RT (R) Appointment (/MRI) Allergies Active Allergy Reactions Criticality Noted Date Comments Prochlorperazine Other (Please comment) Medium 07/30/2022 Generalized weakness Morphine And Codeine Nausea/vomiting,Oth er (Please comment) Medium 07/30/2022 Room spinning as well documented as of this encounter (statuses as of 05/05/2024) Medications Medication Sig Dispensed Refills Start Date [...] as of this encounter (statuses as of 05/05/2024) Active Problems Problem Noted Date Diagnosed Date [...] as of this encounter (statuses as of 05/05/2024) Resolved Problems Problem Noted Date Diagnosed Date Resolved Date Bipolar disorder 07/30/2022 11/15/2022 Overview: More recent.specified code listed on PL documented as of this encounter (statuses as of 05/05/2024) Immunizations Name Administration Dates Next Due Pneumococcal [...] encounter Miscellaneous Notes * Telephone Encounter - Jaja Contreras RT (R) - 05/05/2024 2:13 PM EDT Name: Lulu Zhong Do you have any of the following: Pacemaker, stents, heart valves, aneurysm clips? No Have you ever worked with metal or have you ever gotten metal in your eyes? No Have you had a colonoscopy in the last 30 days? No On dialysis? No Do you have any dermals or body piercing's? No Do you wear an insulin pump or diabetic monitor? No Knows to arrive at [facility] RT Sebas (R) documented in this encounter Plan of Treatment Upcoming Encounters Date Type Department Care Team (Late st Contact Info) Description 05/07/2024 12:00 PM EDT Telemedicine Psychiatry, Zachary Mortensen [address] [place] [address] Adams, DEWAYNE Ruiz [address] [place] [address] [address] 05/08/2024 2:15 PM EDT Imaging Radiology [address] [employer] 132 [facility] [place] [address] 06/10/2024 12:30 PM EDT Telemedicine Psychology [facility] 132 [facility] [place] [address] Telma Tyson, [facility] 132 [facility] [place] [address] 06/23/2024 2:00 PM EDT Office Visit [facility] [address] [place] [phone] JanuaryEdu MD [address] [place] [address] 07/21/2024 3:00 PM EDT Office Visit Urology, [facility] 132 [facility] [place] [address] Arturo Ewing MD 27 [facility] [place] [address] 09/17/2024 2:00 PM EST Office Visit Audiology [facility] 132 [facility] [place] [address] Zonia Marvin Au.D. 132 [facility] [place] [address] Scheduled Procedures Name Priority Associated Diagnoses Date/Ti [...] D LEVEL ONCE IN A LIFETIME-USE SMARTSET# [id number] Completed 01/27/2023, 08/13/2022 Pneumococcal Vaccine: 65+ Years [...] filedocumented as of this encounter Care Teams Enterprise Resource Planner Relationship Specialty Start Date End Date January, Edu Camacho MD [address] [facility] [place] [address] PCP - General Family Medicine 07/30/22 documented as of this encounter
--- OUTSIDE RECORDS SUMMARY | 2024-08-28 14:41 | External Medical Summary | Summary of Care ---
Author Name Unknown Organization [facility] Address [address] [place] [address] Phone [phone] Care Team Providers Care Bakery Worker Name Role Phone Edu Torre MD Primary Care Provider [phone] Reason for Visit * Reason Comments Outpatient Testing Encounter Details Date Type Department Care Team (Late st Contact Info) Description 05/08/2024 12:50 PM EDT Laboratory Laboratory, [facility] 132 [facility] [place] [address] [facility] 132 [facility] [place] [address] Encounter for long-term (current) use of medications; Memory loss Allergies Active Allergy Reactions Criticality Noted Date Comments Prochlorperazine Other (Please comment) Medium 07/30/2022 Generalized weakness Morphine And Codeine Nausea/vomiting,Oth er (Please comment) Medium 07/30/2022 Room spinning as well documented as of this encounter (statuses as of 05/08/2024) Medications Medication Sig Dispensed Refills Start Date [...] as of this encounter (statuses as of 05/08/2024) Active Problems Problem Noted Date Diagnosed Date [...] as of this encounter (statuses as of 05/08/2024) Resolved Problems Problem Noted Date Diagnosed Date Resolved Date Bipolar disorder 07/30/2022 11/15/2022 Overview: More recent.specified code listed on PL documented as of this encounter (statuses as of 05/08/2024) Immunizations Name Administration Dates Next Due Pneumococcal [...] Description 06/10/2024 12:30 PM EDT Telemedicine Psychology [facility] [address] [place] [address] Telma Tyson, [facility] 132 [place] [address] 06/23/2024 2:00 PM EDT Office Visit [facility] [address] [place] [phone] Edu Torre MD [address] [place] [address] 07/21/2024 3:00 PM EDT Office Visit Urology, [facility] 132 [place] [address] Arturo Ewing MD 27 [place] [address] 09/17/2024 2:00 PM EST Office Visit Audiology [facility] [address] [address] Zonia Marvin Au.D. 132 [place] [address] Pending Results Name Type Priority Associated Diagnoses Date /Time MAGNESIUM Lab Routine Encounter for long-term (current) use of medications 05/08/2024 3:10 PM EDT VITAMIN B1 (THIAMINE), BLOOD, LC/MS/MS Lab Routine Memory loss 05/08/2024 3:10 PM EDT FOLIC ACID Lab Routine Memory loss 05/08/2024 3:10 PM EDT HOMOCYSTEINE Lab Routine Memory loss 05/08/2024 3:10 PM EDT PHOSPHORUS Lab Routine Memory loss 05/08/2024 3:10 PM EDT SYPHILIS ANTIBODY SCREEN WITH REFLEX TO RPR Lab Routine Memory loss 05/08/2024 3:10 PM EDT SYPHILIS ANTIBODY SCREEN Lab Routine Memory loss 05/08/2024 3:10 PM EDT Scheduled Procedures Name Priority Associated [...] D LEVEL ONCE IN A LIFETIME-USE SMARTSET# [id number] Completed 01/27/2023, 08/13/2022 Pneumococcal Vaccine: 65+ Years [...] loss documented in this encounter Care Teams Bakery Worker Relationship Specialty Start Date End Date January, Edu Camacho MD [address] [place] [address] PCP - General Family Medicine 07/30/22 documented as of this encounter
--- OUTSIDE RECORDS SUMMARY | 2024-08-28 14:41 | External Medical Summary ---
Author Name Unknown Address Unknown Organization K01:[facility] [place] [address] [facility] [place]. [facility] [address] Laboratory Report Ordering Provider Test Date Status SANNA VARGAS 05/08/2024 15:10:54 Final Observation Date Value Abnormality Reference (Units ) Status Treponema pallidum Ab [Presence] in Serum by Immunoassay 05/08/2024 15:10:54 Nonreactive Nonreactive Final No serologic evidence of syp hilis. No additional testing clinicially indicated at this time. Consider repeat testing in 2-4 weeks if acute or primary syphilis is suspected. Performing Location [facility] [place] [address] [place] [facility] [address]
--- OUTSIDE RECORDS SUMMARY | 2024-08-28 14:41 | External Medical Summary | Summary of Care ---
Author Name Unknown Organization [facility] Address [address] [place] [address] Phone [phone] Care Team Providers Care Ultrasound Technician Name Role Phone Edu Torre MD Primary Care Provider [phone] Encounter Details Date Type Department Care Team (Late st Contact Info) Description 05/09/2024 Documentation Psychiatry, [facility] 200 [place] [address] Adams, DEWAYNE Ruiz [address] [place] [address] Allergies Active Allergy Reactions Criticality Noted Date [...] Progress Notes * Yahaira Adams CRNP - 05/09/2024 10:40 PM EDT PSYCHIATRY TRANSFER SUMMARY 1. Summary of Services provided: Medication Management 2. Outcomes and referrals: Transfer due to provider leaving practice 3. Relevant psychosocial status: stable 4. Medications upon discharge: DULoxetine HCl 20 MG Oral Capsule Delayed Release Particles (Cymbalta) DULoxetine HCl 30 MG Oral Capsule Delayed Release Particles (Cymbalta) clonazePAM 0.5 MG Oral Tablet (KlonoPIN) HYDROcodone-Acetaminophen 5-325 MG Oral Tablet Alendronate Sodium 70 MG Oral Tablet (Fosamax) ARIPiprazole 15 MG Oral Tablet (Abilify) traZODone HCl 100 MG Oral Tablet (Desyrel) Omeprazole 40 MG Oral Capsule Delayed Release (PriLOSEC) Benzonatate 100 MG Oral Capsule Ondansetron 4 MG Oral Tablet Disintegrating (Zofran) Nitrofurantoin Monohyd Macro 100 MG Oral Capsule (Macrobid) Levocetirizine Dihydrochloride 5 MG Oral Tablet Estradiol 0.1 MG/GM Vaginal Cream (Estrace) Myrbetriq 50 MG Oral Tablet Extended Release 24 Hour (Mirabegron ER) Topiramate 50 MG Oral Tablet (topAMAX) AZO Cranberry 250-30 MG Oral Tablet Fiber 625 MG Oral Tablet polyethylene glycol 3350 119 gram OR POWD Atorvastatin Calcium 40 MG Oral Tablet (Lipitor) 5. Diagnoses upon Discharge: Diagnoses Codes Comments Bipolar I disorder, most recent episode depressed (HCC) - Primary F31.30 EVANS (generalized anxiety disorder) F41.1 Panic disorder F41.0 Tardive dyskinesia G24.01 6. Medical History: Past Medical History: Diagnosis Date Bipolar disorder (HCC) 07/30/2022 More recent.specified code listed on PL Cataract Hip pain Knee pain Migraines Tardive dyskinesia 7. Additional Information: Psychotropic History See recent progress notes Plan of care at time of discharge including referrals: Use crisis plan as needed Continue current treatment plan as outlined in progress notes and treatment plan document Patient and/or family has access to this document through [facility] documented in this encounter Plan of Treatment Upcoming Encounters Date Type Department Care Team (Late st Contact Info) Description 06/10/2024 12:30 PM EDT Telemedicine Psychology [facility] 132 [facility] [place] [address] Telma Tyson [facility] [address] [place] [address] 06/23/2024 2:00 PM EDT Office Visit [facility] [address] [place] [phone] Edu Torre MD [address] [place] [address] 07/21/2024 3:00 PM EDT Office Visit Urology, [facility] 132 [facility] [place] [address] Arturo Ewing MD [address] [place] [address] 09/17/2024 2:00 PM EST Office Visit Audiology [facility] 132 [facility] [place] [address] Zonia Marvin Au.D. [address] [place] [address] Scheduled Procedures Name Priority Associated Diagnoses Date/Ti [...] D LEVEL ONCE IN A LIFETIME-USE SMARTSET# [id number] Completed 01/27/2023, 08/13/2022 Pneumococcal Vaccine: 65+ Years [...] filedocumented as of this encounter Care Teams Ultrasound Technician Relationship Specialty Start Date End Date January, Edu Camacho MD [address] [place] [address] PCP - General Family Medicine 07/30/22 documented as of this encounter
--- NOTE | 2024-08-28 14:51 | Hospitalist Progress Note ---
Date of Service August 28, 2024 Assessment & Plan (1) Fall: (2) Bilateral hip fractures: (3) Ambulatory dysfunction: Plan Ms. Zhong is a 68y/o F with PMH of hyperlipidemia, history of recurrent UTI, urge incontinence, history of calculus of kidney, chronic bilateral low back pain with left-sided sciatica, age-related osteoporosis, migraines, tardive dyskinesia, lumbar radiculopathy, history of memory loss, primary insomnia, history of chronic opioid use, bipolar I disorder, EVANS and panic disorder who presented to the ED on 07/26/2024 via EMS with complaints of generalized pain after falling out of bed. Patient found to have bilateral hip fractures and is now s/p repair. #s/p bilateral hip pinning #Ambulatory Dysfunction & Generalized Weakness Likely Age-Related Osteoporotic Bilateral Hip Fractures S/P Recent Falls: Found down in her bedroom, legs have been giving out. Daughter is concerned patient may have taking some of her methocarbamol at home Head CT, cervical/lumbar spine CT, L forearm XR & CXR were all unremarkable on admission. L femur XR --> Acute, comminuted and impacted transcervical/subcapital femoral neck fracture R femur XR --> Acute impacted R femoral neck fracture - not significantly displaced POD #2 s/p close reduction internal fixation of bilateral hips for bilateral femoral neck fractures by Dr. Martinez * WBAT on BLE * Follow up with ortho surgery in 2 weeks for wound check PT/OT evaluated today - recommending rehab CM placed referral to [facility] #Acute anemia 2/2 expected post op losses hgb preop 13, now 10.3 remains HDS denies any other acute concerns Other Chronic Medical Conditions: * GERD - Continue home omeprazole * History of migraines - Continue home Topamax * History of recurrent UTIs - UA unremarkable on admission * Bipolar I disorder/EVANS/panic disorder - Mental status stable. Continue home psych meds, on Klonopin PRN DVT Prophylaxis: SCDs, SQ heparin Code Status: FULL PCP: Yelitza Disposition: Admitted in Med/Surg - referral for [facility] pending Admission and Anticipated Discharge Date Admission Date: August 25, 2024 Subjective NAEO reports pain is well controlled denies any other acute concerns Physical Exam Constitutional: WD/WN, vitals as above Respiratory: normal respiratory effort, lungs clear to auscultation Cardiovascular: RRR, no murmur, no edema Gastrointestinal (Abdomen): normal bowel sounds, soft, nontender, no hepatosplenomegaly Results & Data Results & Data Vital Signs (Past 12 Hours) Vital Signs Temp Pulse Resp BP BP Pulse Ox O2 Del Method 08/28/24 12:21 37.3 C 95 H 15 129/71 96 Room Air 08/28/24 08:02 36.5 C 94 H 16 119/70 94 Room Air Laboratory Results Short CBC 08/28/24 Range/Units 06:59 WBC 7.29 (4.8-10.8) K/ul Hgb 10.3 L (12.0-16.0) g/dl Hct 30.8 L (37.0-47.0) % Plt Count 177 (130-400) K/uL BMP 08/28/24 06:59 Sodium 141 Potassium 3.8 Chloride 108 H Carbon Dioxide 30 BUN 17 Creatinine 0.76 Glucose 115 H Calcium 8.6 Medications Administered Home Medications Medication Instructions Recorded Confirmed Last Taken alendronate 70 mg tablet 70 mg PO WK 08/25/24 08/25/24 Unknown aripiprazole 15 mg tablet 15 mg PO HS 08/25/24 08/25/24 Unknown clonazepam 0.5 mg tablet 0.5 mg PO BID PRN Anxiety 08/25/24 08/25/24 Unknown duloxetine 30 mg capsule,delayed 30 mg PO BID 08/25/24 08/25/24 Unknown release estradiol 0.01% (0.1 mg/gram) 1 appful vaginal 2XWK 08/25/24 08/25/24 Unknown vaginal cream folic acid 1 mg tablet 1 mg PO DAILY 08/25/24 08/25/24 Unknown levocetirizine 5 mg tablet 5 mg PO HS 08/25/24 08/25/24 Unknown lubiprostone 24 mcg capsule 24 mcg PO BID 08/25/24 08/25/24 Unknown mirabegron 50 mg tablet,extended 50 mg PO DAILY 08/25/24 08/25/24 Unknown release 24 hr (Myrbetriq) omeprazole 40 mg capsule,delayed 40 mg PO DAILY 08/25/24 08/25/24 Unknown release topiramate 50 mg tablet 50 mg PO DAILY 08/25/24 08/25/24 Unknown trazodone 100 mg tablet 150 mg PO HS 08/25/24 08/25/24 Unknown Active Medications Generic Name Dose Route Start Last Admin Trade Name Linwoodq PRN Reason Stop Dose Admin Acetaminophen 1,000 mg 08/27/24 14:00 08/28/24 13:17 Acetaminophen 500 Mg Tab PO 09/26/24 13:59 1,000 mg Q8 DANYELLE Administration Aripiprazole 15 mg 08/26/24 21:00 08/27/24 20:47 Aripiprazole 15 Mg Tab PO 09/25/24 20:59 15 mg HS DANYELLE Administration Cetirizine HCl 10 mg 08/26/24 21:00 08/27/24 20:46 Cetirizine Hcl 10 Mg Tablet PO 09/25/24 20:59 10 mg HS DANYELLE Administration Clonazepam 0.5 mg 08/26/24 00:40 08/28/24 06:12 Clonazepam 0.5 Mg Tab PO 09/25/24 00:39 0.5 mg BID PRN Administration Anxiety Docusate Sodium 100 mg 08/28/24 09:15 08/28/24 11:29 Docusate Sodium 100 Mg Cap PO 09/27/24 09:14 100 mg BID DANYELLE Administration Duloxetine HCl 30 mg 08/26/24 09:00 08/28/24 08:12 Duloxetine Hcl 30 Mg Cap PO 09/25/24 08:59 30 mg BID DANYELLE Administration Folic Acid 1 mg 08/26/24 09:00 08/28/24 08:12 Folic Acid 1 Mg Tab PO 09/25/24 08:59 1 mg DAILY DANYELLE Administration Heparin Sodium (Porcine) 5,000 units 08/28/24 09:00 08/28/24 08:17 Heparin Sod 5,000 Unit/0.5 Ml Vial SQ 09/27/24 08:59 5,000 units Q12 DANYELLE Administration Hydromorphone HCl 0.5 mg 08/26/24 00:40 08/28/24 12:18 Hydromorphone Inj 0.5 Mg/0.5 Ml Syr IV 09/09/24 00:39 0.5 mg Q6H PRN Administration Severe Pain (Scale 7, 8, 9,10) Lubiprostone 24 mcg 08/26/24 09:00 08/28/24 08:12 Lubiprostone 8 Mcg Cap PO 09/25/24 08:59 24 mcg BID DANYELLE Administration Ondansetron HCl 4 mg 08/26/24 14:04 08/26/24 14:38 Ondansetron Inj 2 Mg/Ml 2 Ml Vial IV 09/25/24 14:03 4 mg Q4H PRN Administration Nausea And Vomiting Oxycodone HCl 5 mg 08/27/24 12:56 08/28/24 08:17 Oxycodone Hcl Ir 5 Mg Tab (Immediate Release) PO 09/10/24 12:55 5 mg Q6H PRN Administration Mod-Sev Pain (Scale 4-10) Pantoprazole Sodium 40 mg 08/26/24 09:00 08/28/24 08:12 Pantoprazole 40 Mg Tab PO 09/25/24 08:59 40 mg DAILY DANYELLE Administration Polyethylene Glycol 17 gm 08/28/24 14:00 08/28/24 13:17 Polyethylene (Miralax) 17 Gm Pack PO 09/27/24 13:59 17 gm TID DANYELLE Administration Topiramate 50 mg 08/26/24 09:00 08/28/24 08:13 Topiramate 50 Mg Tab PO 09/25/24 08:59 50 mg DAILY DANYELLE Administration Trazodone HCl 150 mg 08/26/24 21:00 08/27/24 20:45 Trazodone Hcl 50 Mg Tab PO 09/25/24 20:59 150 mg HS DANYELLE Administration Vibegron 75 mg 08/26/24 09:00 08/28/24 08:12 Vibegron 75 Mg Tab PO 09/25/24 08:59 75 mg DAILY DANYELLE Administration (1) Fall Encounter type: sequela Qualified Code(s): W19.XXXS - Unspecified fall, sequela (2) Bilateral hip fractures Encounter type: initial encounter Fracture type: closed Qualified Code(s): S72.001A - Fracture of unspecified part of neck of right femur, initial encounter for closed fracture; S72.002A - Fracture of unspecified part of neck of left femur, initial encounter for closed fracture
[2024-08-29 07:19] LABS: Hematocrit (blood only) 32.4 % (37.0-47.0); Hemoglobin 10.7 g/dl (12.0-16.0); Mean Corpuscular Volume 93.9 fL (80.0-100.0); Mean Platelet Volume 9.7 fL (9.4-12.4); Platelet Count 197 K/uL (130-400); RDW Standard Deviation 44.8 fL (36.4-46.3); Red Blood Count 3.45 M/uL (4.20-5.40); White Blood Count 6.07 K/ul (4.8-10.8)
[2024-08-29 07:38] LABS: BUN Creatinine Ratio 23.6 (10-20); Creatinine Clr Calc Pharmacy 62.8 ml/min
--- NOTE | 2024-08-29 09:51 | Hospitalist Progress Note ---
Date of Service August 29, 2024 Assessment & Plan (1) Fall: (2) Bilateral hip fractures: (3) Ambulatory dysfunction: Plan Ms. Zhong is a 68y/o F with PMH of hyperlipidemia, history of recurrent UTI, urge incontinence, history of calculus of kidney, chronic bilateral low back pain with left-sided sciatica, age-related osteoporosis, migraines, tardive dyskinesia, lumbar radiculopathy, history of memory loss, primary insomnia, history of chronic opioid use, bipolar I disorder, EVANS and panic disorder who presented to the ED on 07/26/2024 via EMS with complaints of generalized pain after falling out of bed. Patient found to have bilateral hip fractures and is now s/p repair. Patient doing well postoperatively, no acute concerns. Awaiting discharge to rehab, #s/p bilateral hip pinning #Ambulatory Dysfunction & Generalized Weakness Likely Age-Related Osteoporotic Bilateral Hip Fractures S/P Recent Falls: Found down in her bedroom, legs have been giving out. Daughter is concerned patient may have taking some of her methocarbamol at home Head CT, cervical/lumbar spine CT, L forearm XR & CXR were all unremarkable on admission. L femur XR --> Acute, comminuted and impacted transcervical/subcapital femoral neck fracture R femur XR --> Acute impacted R femoral neck fracture - not significantly displaced POD #2 s/p close reduction internal fixation of bilateral hips for bilateral femoral neck fractures by Dr. Martinez * WBAT on BLE * Follow up with ortho surgery in 2 weeks for wound check PT/OT evaluated today - recommending rehab CM placed referral to [facility] #Acute anemia 2/2 expected post op losses stable hgb preop 13, now 10.7 remains HDS denies any other acute concerns Other Chronic Medical Conditions: * GERD - Continue home omeprazole * History of migraines - Continue home Topamax * History of recurrent UTIs - UA unremarkable on admission * Bipolar I disorder/EVANS/panic disorder - Mental status stable. Continue home psych meds, on Klonopin PRN DVT Prophylaxis: SCDs, SQ heparin Code Status: FULL PCP: January Disposition: Admitted in Med/Surg - referral for [facility] pending Admission and Anticipated Discharge Date Admission Date: August 25, 2024 Subjective NAEO Reports feeling tired after physical therapy day prior, but otherwise no other concerns. Physical Exam Constitutional: WD/WN, vitals as above Respiratory: normal respiratory effort, lungs clear to auscultation Cardiovascular: RRR, no murmur, no edema Gastrointestinal (Abdomen): normal bowel sounds, soft, nontender, no hepatosplenomegaly Results & Data Results & Data Vital Signs (Past 12 Hours) Vital Signs Temp Pulse Pulse Resp BP Pulse Ox O2 Del Method 08/29/24 08:02 98 H 17 120/72 97 Room Air 08/29/24 07:53 34.8 C L 82 18 102/66 91 Room Air Laboratory Results Short CBC 08/29/24 Range/Units 06:44 WBC 6.07 (4.8-10.8) K/ul Hgb 10.7 L (12.0-16.0) g/dl Hct 32.4 L (37.0-47.0) % Plt Count 197 (130-400) K/uL BMP 08/29/24 06:44 Sodium 140 Potassium 4.0 Chloride 106 Carbon Dioxide 32 BUN 17 Creatinine 0.72 Glucose 121 H Calcium 9.0 Medications Administered Home Medications Medication Instructions Recorded Confirmed Last Taken alendronate 70 mg tablet 70 mg PO WK 08/25/24 08/25/24 Unknown aripiprazole 15 mg tablet 15 mg PO HS 08/25/24 08/25/24 Unknown clonazepam 0.5 mg tablet 0.5 mg PO BID PRN Anxiety 08/25/24 08/25/24 Unknown duloxetine 30 mg capsule,delayed 30 mg PO BID 08/25/24 08/25/24 Unknown release estradiol 0.01% (0.1 mg/gram) 1 appful vaginal 2XWK 08/25/24 08/25/24 Unknown vaginal cream folic acid 1 mg tablet 1 mg PO DAILY 08/25/24 08/25/24 Unknown levocetirizine 5 mg tablet 5 mg PO HS 08/25/24 08/25/24 Unknown lubiprostone 24 mcg capsule 24 mcg PO BID 08/25/24 08/25/24 Unknown mirabegron 50 mg tablet,extended 50 mg PO DAILY 08/25/24 08/25/24 Unknown release 24 hr (Myrbetriq) omeprazole 40 mg capsule,delayed 40 mg PO DAILY 08/25/24 08/25/24 Unknown release topiramate 50 mg tablet 50 mg PO DAILY 08/25/24 08/25/24 Unknown trazodone 100 mg tablet 150 mg PO HS 08/25/24 08/25/24 Unknown Active Medications Generic Name Dose Route Start Last Admin Trade Name Freq PRN Reason Stop Dose Admin Acetaminophen 1,000 mg 08/27/24 14:00 08/29/24 06:25 Acetaminophen 500 Mg Tab PO 09/26/24 13:59 1,000 mg Q8 DANYELLE Administration Aripiprazole 15 mg 08/26/24 21:00 08/28/24 20:20 Aripiprazole 15 Mg Tab PO 09/25/24 20:59 15 mg HS DANYELLE Administration Cetirizine HCl 10 mg 08/26/24 21:00 08/28/24 20:19 Cetirizine Hcl 10 Mg Tablet PO 09/25/24 20:59 10 mg HS DANYELLE Administration Clonazepam 0.5 mg 08/26/24 00:40 08/28/24 20:20 Clonazepam 0.5 Mg Tab PO 09/25/24 00:39 0.5 mg BID PRN Administration Anxiety Docusate Sodium 100 mg 08/28/24 09:15 08/29/24 08:15 Docusate Sodium 100 Mg Cap PO 09/27/24 09:14 100 mg BID DANYELLE Administration Duloxetine HCl 30 mg 08/26/24 09:00 08/29/24 08:15 Duloxetine Hcl 30 Mg Cap PO 09/25/24 08:59 30 mg BID DANYELLE Administration Folic Acid 1 mg 08/26/24 09:00 08/29/24 08:15 Folic Acid 1 Mg Tab PO 09/25/24 08:59 1 mg DAILY DANYELLE Administration Heparin Sodium (Porcine) 5,000 units 08/28/24 09:00 08/29/24 08:15 Heparin Sod 5,000 Unit/0.5 Ml Vial SQ 09/27/24 08:59 5,000 units Q12 DANYELLE Administration Hydromorphone HCl 0.5 mg 08/26/24 00:40 08/28/24 12:18 Hydromorphone Inj 0.5 Mg/0.5 Ml Syr IV 09/09/24 00:39 0.5 mg Q6H PRN Administration Severe Pain (Scale 7, 8, 9,10) Lubiprostone 24 mcg 08/26/24 09:00 08/29/24 08:15 Lubiprostone 8 Mcg Cap PO 09/25/24 08:59 24 mcg BID DANYELLE Administration Ondansetron HCl 4 mg 08/26/24 14:04 08/26/24 14:38 Ondansetron Inj 2 Mg/Ml 2 Ml Vial IV 09/25/24 14:03 4 mg Q4H PRN Administration Nausea And Vomiting Oxycodone HCl 5 mg 08/27/24 12:56 08/29/24 06:25 Oxycodone Hcl Ir 5 Mg Tab (Immediate Release) PO 09/10/24 12:55 5 mg Q6H PRN Administration Mod-Sev Pain (Scale 4-10) Pantoprazole Sodium 40 mg 08/26/24 09:00 08/29/24 08:15 Pantoprazole 40 Mg Tab PO 09/25/24 08:59 40 mg DAILY DANYELLE Administration Polyethylene Glycol 17 gm 08/28/24 14:00 08/29/24 08:15 Polyethylene (Miralax) 17 Gm Pack PO 09/27/24 13:59 17 gm TID DANYELLE Administration Topiramate 50 mg 08/26/24 09:00 08/29/24 08:16 Topiramate 50 Mg Tab PO 09/25/24 08:59 50 mg DAILY DANYELLE Administration Trazodone HCl 150 mg 08/26/24 21:00 08/28/24 20:19 Trazodone Hcl 50 Mg Tab PO 09/25/24 20:59 150 mg HS DANYELLE Administration Vibegron 75 mg 08/26/24 09:00 08/29/24 08:15 Vibegron 75 Mg Tab PO 09/25/24 08:59 75 mg DAILY DANYELLE Administration (1) Fall Encounter type: sequela Qualified Code(s): W19.XXXS - Unspecified fall, sequela (2) Bilateral hip fractures Encounter type: initial encounter Fracture type: closed Qualified Code(s): S72.001A - Fracture of unspecified part of neck of right femur, initial encounter for closed fracture; S72.002A - Fracture of unspecified part of neck of left femur, initial encounter for closed fracture
[2024-08-29] MEDS: bisacodyL 5 MG TABEC PO ONE (10:56)
[2024-08-30 08:31] LABS: BUN Creatinine Ratio 23.1 (10-20); C Reactive Protein 1.93 mg/dl (0-0.5); Calcium 9.2 mg/dl (8.6-10.3); Potassium 4.2 mmol/L (3.5-5.1)
--- NOTE | 2024-08-30 11:29 | Hospitalist Progress Note ---
Date of Service August 30, 2024 Assessment & Plan (1) Fall: (2) Bilateral hip fractures: (3) Ambulatory dysfunction: Plan Ms. Zhong is a 68y/o F with PMH of hyperlipidemia, history of recurrent UTI, urge incontinence, history of calculus of kidney, chronic bilateral low back pain with left-sided sciatica, age-related osteoporosis, migraines, tardive dyskinesia, lumbar radiculopathy, history of memory loss, primary insomnia, history of chronic opioid use, bipolar I disorder, EVANS and panic disorder who presented to the ED on 08/25/2024 via EMS with complaints of generalized pain after falling out of bed. Patient found to have bilateral hip fractures and is now s/p repair. Patient doing well postoperatively - awaiting disposition to rehab, hopeful for [facility] #s/p bilateral hip pinning #Ambulatory Dysfunction & Generalized Weakness Likely Age-Related Osteoporotic Bilateral Hip Fractures S/P Recent Falls: Found down in her bedroom, legs have been giving out. Daughter is concerned patient may have taking some of her methocarbamol at home Head CT, cervical/lumbar spine CT, L forearm XR & CXR were all unremarkable on admission. L femur XR --> Acute, comminuted and impacted transcervical/subcapital femoral neck fracture R femur XR --> Acute impacted R femoral neck fracture - not significantly displaced POD #4 s/p close reduction internal fixation of bilateral hips for bilateral femoral neck fractures by Dr. Martinez * WBAT on BLE * Follow up with ortho surgery in 2 weeks for wound check PT/OT evaluated today - recommending rehab CM placed referral to [facility] #Acute anemia 2/2 expected post op losses stable hgb preop 13, now 10.7 remains HDS denies any other acute concerns Constipation, narcotic induced continue miralax TID, colace, give dulcolax x 1 now Other Chronic Medical Conditions: * GERD - Continue home omeprazole * History of migraines - Continue home Topamax * History of recurrent UTIs - UA unremarkable on admission * Bipolar I disorder/EVANS/panic disorder - Mental status stable. Continue home psych meds, on Klonopin PRN DVT Prophylaxis: SCDs, SQ heparin Code Status: FULL PCP: January Disposition: Admitted in Med/Surg - referral for [facility] pending, she is medically stable for discharge I spent a total of 45 minutes reviewing notes, outpatient records, labs, medication, coordinating, documenting and providing care for this patient excluding time spent in the performance of separately billed services. Admission and Anticipated Discharge Date Admission Date: August 25, 2024 Supervising Physician Co-Signing Physician Notes I have seen and discussed the case with the collaborating advanced practitioner. I agree with the above PN. I have reviewed and confirmed the patients medical history, the findings on physical examination, and the patients diagnosis and treatment plan with Joan HAWKINS and agree with the information documented. I spent a total of 5minutes coordinating, documenting, and providing care for this patient excluding time spent in the performance of separately billed services. All of the aforementioned completed outside of collaborating with the assigned advanced practitioner for a full treatment plan. I have reviewed the advanced practitioner's documentation, and I agree with, and take responsibility for the plan of care Subjective Pt endorses she has not had a BM in several days. She denies abd pain and is passing gas. Reports pain and numbness to her upper thigh region. Denies f/c/s, chest pain, sob, n/v/d. She is tolerating her diet. Review of Systems Review of Systems: All systems reviewed & are unremarkable except as noted in HPI & below Physical Exam Physical Exam: Gen: WD/WN, NAD, A&O x3 HEENT: Normocephalic, atraumatic, conjunctivae moist, sclerae anicteric, mucous membranes moist. Lung: Clear to Auscultation bilaterally, no wheezes/rales/rhonchi Heart: Regular rate, regular rhythm, no murmurs, rubs, or gallops Abdomen: Soft, NT, ND +BS x 4 Extremities: No edema Skin: Warm, no rash, negative turgor., b/l dressing CDI Results & Data Results & Data Vital Signs (Past 12 Hours) Vital Signs Temp Pulse Resp BP Pulse Ox O2 Del Method 08/30/24 08:28 36.6 C 93 H 16 123/62 96 Room Air Laboratory Results I have independently reviewed and interpreted patient's bmp and crp 08/30/24 07:49 Sodium 140 Potassium 4.2 Chloride 105 Carbon Dioxide 32 BUN 18 Creatinine 0.78 Glucose 119 H Calcium 9.2 Medications Administered Current Inpatient Medications Acetaminophen (Acetaminophen 500 Mg Tab) 1,000 mg PO Q8 DANYELLE Stop: 09/26/24 13:59 Last Admin: 12/09/24 05:50 Dose: 1,000 mg Aripiprazole (Aripiprazole 15 Mg Tab) 15 mg PO HS [facility] Stop: 09/25/24 20:59 Last Admin: 08/29/24 20:41 Dose: 15 mg Cetirizine HCl (Cetirizine Hcl 10 Mg Tablet) 10 mg PO HS [facility] Stop: 09/25/24 20:59 Last Admin: 08/29/24 20:44 Dose: 10 mg Clonazepam (Clonazepam 0.5 Mg Tab) 0.5 mg PO BID PRN PRN Reason: Anxiety Stop: 09/25/24 00:39 Last Admin: 08/28/24 20:20 Dose: 0.5 mg Docusate Sodium (Docusate Sodium 100 Mg Cap) 100 mg PO BID [facility] Stop: 09/27/24 09:14 Last Admin: 08/30/24 08:43 Dose: 100 mg Duloxetine HCl (Duloxetine Hcl 30 Mg Cap) 30 mg PO BID [facility] Stop: 09/25/24 08:59 Last Admin: 08/30/24 08:38 Dose: 30 mg Folic Acid (Folic Acid 1 Mg Tab) 1 mg PO DAILY [facility] Stop: 09/25/24 08:59 Last Admin: 08/30/24 08:39 Dose: 1 mg Heparin Sodium (Porcine) (Heparin Sod 5,000 Unit/0.5 Ml Vial) 5,000 units SQ Q12 DANYELLE Stop: 09/27/24 08:59 Last Admin: 08/30/24 08:43 Dose: 5,000 units Hydromorphone HCl (Hydromorphone Inj 0.5 Mg/0.5 Ml Syr) 0.25 mg IV Q6H PRN PRN Reason: Moderate Pain (Scale 4, 5, 6) Stop: 09/09/24 00:39 Hydromorphone HCl (Hydromorphone Inj 0.5 Mg/0.5 Ml Syr) 0.5 mg IV Q6H PRN PRN Reason: Severe Pain (Scale 7, 8, 9,10) Stop: 09/09/24 00:39 Last Admin: 08/30/24 05:51 Dose: 0.5 mg Lubiprostone (Lubiprostone 8 Mcg Cap) 24 mcg PO BID [facility] Stop: 09/25/24 08:59 Last Admin: 08/30/24 08:39 Dose: 24 mcg Ondansetron HCl (Ondansetron Inj 2 Mg/Ml 2 Ml Vial) 4 mg IV Q4H PRN PRN Reason: Nausea And Vomiting Stop: 09/25/24 14:03 Last Admin: 08/26/24 14:38 Dose: 4 mg Oxycodone HCl (Oxycodone Hcl Ir 5 Mg Tab (Immediate Release)) 5 mg PO Q6H PRN PRN Reason: Mod-Sev Pain (Scale 4-10) Stop: 09/10/24 12:55 Last Admin: 08/30/24 04:10 Dose: 5 mg Pantoprazole Sodium (Pantoprazole 40 Mg Tab) 40 mg PO DAILY [facility] Stop: 09/25/24 08:59 Last Admin: 08/30/24 08:39 Dose: 40 mg Polyethylene Glycol (Polyethylene (Miralax) 17 Gm Pack) 17 gm PO TID [facility] Stop: 09/27/24 13:59 Last Admin: 08/30/24 08:43 Dose: 17 gm Topiramate (Topiramate 50 Mg Tab) 50 mg PO DAILY [facility] Stop: 09/25/24 08:59 Last Admin: 08/30/24 08:39 Dose: 50 mg Trazodone HCl (Trazodone Hcl 50 Mg Tab) 150 mg PO HS [facility] Stop: 09/25/24 20:59 Last Admin: 08/29/24 20:39 Dose: 150 mg Vibegron (Vibegron 75 Mg Tab) 75 mg PO DAILY [facility] Stop: 09/25/24 08:59 Last Admin: 08/30/24 08:39 Dose: 75 mg (1) Fall Encounter type: sequela Qualified Code(s): W19.XXXS - Unspecified fall, sequela (2) Bilateral hip fractures Encounter type: initial encounter Fracture type: closed Qualified Code(s): S72.001A - Fracture of unspecified part of neck of right femur, initial encounter for closed fracture; S72.002A - Fracture of unspecified part of neck of left femur, initial encounter for closed fracture
[2024-08-30] MEDS: bisacodyL 5 MG TABEC PO ONE ×2 (12:49)
[2024-08-30 20:02] VITALS: O2SAT 96
[2024-08-31 08:01] VITALS: PULSE 105; RESP 16; TEMP 98.1
[2024-08-31 08:29] LABS: Hematocrit (blood only) 33.9 % (37.0-47.0); Hemoglobin 11.2 g/dl (12.0-16.0); Mean Corpuscular Hemoglobin 30.4 pg (25.0-34.0); Mean Corpuscular Volume 92.1 fL (80.0-100.0); Mean Platelet Volume 9.2 fL (9.4-12.4); Platelet Count 259 K/uL (130-400); RDW Coefficient of Variation 13.1 % (11.5-14.5); RDW Standard Deviation 44.5 fL (36.4-46.3); Red Blood Count 3.68 M/uL (4.20-5.40); White Blood Count 5.64 K/ul (4.8-10.8)
[2024-08-31 08:33] LABS: Calcium 9.3 mg/dl (8.6-10.3); Creatinine Clr Calc Pharmacy 58.7 ml/min; Potassium 4.1 mmol/L (3.5-5.1)
--- NOTE | 2024-08-31 10:51 | Discharge Summary ---
Discharge Summary Date of Service August 31, 2024 Principal Dx & Hospital Course #1 = Principal Diagnosis (1) Fall: (2) Bilateral hip fractures: (3) Ambulatory dysfunction: Plan Ms. Zhong is a 68y/o F with PMH of hyperlipidemia, history of recurrent UTI, urge incontinence, history of calculus of kidney, chronic bilateral low back pain with left-sided sciatica, age-related osteoporosis, migraines, tardive dyskinesia, lumbar radiculopathy, history of memory loss, primary insomnia, history of chronic opioid use, bipolar I disorder, EVANS and panic disorder who presented to the ED on 08/25/2024 via EMS with complaints of generalized pain after falling out of bed. Patient found to have bilateral hip fractures and is now s/p repair. #s/p bilateral hip pinning ORIF #Ambulatory Dysfunction & Generalized Weakness Likely Age-Related Osteoporotic Bilateral Hip Fractures S/P Recent Falls: Found down in her bedroom, legs have been giving out. Daughter is concerned patient may have taking some of her methocarbamol at home Head CT, cervical/lumbar spine CT, L forearm XR & CXR were all unremarkable on admission. L femur XR --> Acute, comminuted and impacted transcervical/subcapital femoral neck fracture R femur XR --> Acute impacted R femoral neck fracture - not significantly displaced POD #5 on 08/26/24 s/p close reduction internal fixation of bilateral hips for bilateral femoral neck fractures by Dr. Martinez * WBAT on BLE * Follow up with ortho surgery in 2 weeks for wound check PT/OT evaluated today - recommending rehab #Acute anemia 2/2 expected post op losses stable hgb preop 13, now 11.2 and stable Constipation, narcotic induced continue miralax TID, colace - she had a BM on day of discharge She will likely need bowel regimen titrated at rehab Other Chronic Medical Conditions: * GERD - Continue home omeprazole * History of migraines - Continue home Topamax * History of recurrent UTIs - UA unremarkable on admission * Bipolar I disorder/EVANS/panic disorder - Mental status stable. Continue home psych meds, on Klonopin PRN DVT Prophylaxis: SCDs, SQ heparin - recommend continuing heparin while at rehab until more ambulatory Code Status: FULL PCP: May Disposition: Discharge to [facility] today. Notes For Next Care Provider S/P bilateral hip ORIF on 08/26 after a fall. She will need F/U with Dr. Martinez in 2 weeks for wound check. Recommend continuing VTE ppx until more ambulatory. Post op hgb stable at 11.2. She did have constipation, BM 08/31. She is on colace and Miralax TID, this may need adjusted based on bowel habits. Medication Changes From Visit Tylenol 1,000mg by mouth three times daily. Oxycodone 5mg every 6 hours as needed for moderate to severe pain. Docusate sodium 100mg by mouth twice daily for constipation related to pain medications. This may need adjusted based on daily bowel habits. Miralax 17g three times daily for constipation related to pain medications. Admission HPI Per Admitting Provider 68-year-old female with past medical history significant for mixed hyperlipidemia, GERD, recurrent UTI, history of calculus of kidney, urge incontinence, chronic bilateral back pain, osteoporosis, migraine, tardive dyskinesia, lumbar radiculopathy, migraine, history of memory loss, primary insomnia, history of chronic use of opioids, bipolar 1 disorder, general anxiety disorder, panic disorder, lives with her daughter was brought in because of falls. As per daughter patient walks without support at home and when she goes outside she uses walker. Lately patient seems weak as per daughter. States she fell in the kitchen yesterday. Today she slipped from the bed and got stuck within the mattress and nightstand. And she hit her head and also left shoulder and knee. Daughter says the patient's legs are giving away and falling frequently. Patient is currently alert and oriented. Has a bruise on the left side of forehead. Currently no headache as per patient. Vision is okay. No runny nose or sore throat. No fevers. Appetite is not that great as per daughter. No difficulty swallowing. Denies any chest pain or shortness of breath. No nausea. No abdominal pain. Normal bowel and bladder movements. Hemodynamics are okay. Past medical history. As mentioned above Past surgical history. Right knee arthroscopy. Appendectomy. Left shoulder surgery. Laparoscopic cholecystectomy. Total abdominal hysterectomy with removal of tubes. Social history. . No smoking. No alcohol currently. No drug use. Family history. Father with alcoholism. Cirrhosis. Lung cancer. Mother had depression. Diverticulitis. Status post pacemaker. Daughter had uterine cancer. Admission Exam Per Admitting Provider General- Not in distress Head- bruise seen on left forehead Eyes- PERRL. ENT- oropharynx clear Neck- supple, no JVD. Lungs- clear to auscultation no wheezing or crackles Heart- regular rate and rhythm; no murmur, no gallop. Abdomen- normal bowel sounds, soft, nontender, no distension Extremities- no pretibial edema, no erythema seen. Painful lower extremity m ovements Neuro- alert, oriented PERRL, no facial palsy; no dysarthria; moves extremities Discharge Exam Gen: WD/WN, NAD, A&O x3 HEENT: Normocephalic, atraumatic, conjunctivae moist, sclerae anicteric, mucous membranes moist. Lung: Clear to Auscultation bilaterally, no wheezes/rales/rhonchi Heart: Regular rate, regular rhythm, no murmurs, rubs, or gallops Abdomen: Soft, NT, ND +BS x 4 Extremities: No edema Skin: Warm, no rash, negative turgor., b/l dressing CDI Updated Medication List Medication Instructions Recorded Confirmed Type alendronate 70 mg tablet 70 mg PO WK 08/25/24 08/25/24 History aripiprazole 15 mg tablet 15 mg PO HS 08/25/24 08/25/24 History clonazepam 0.5 mg tablet 0.5 mg PO BID PRN Anxiety 08/25/24 08/25/24 History duloxetine 30 mg capsule,delayed 30 mg PO BID 08/25/24 08/25/24 History release estradiol 0.01% (0.1 mg/gram) 1 appful vaginal 2XWK 08/25/24 08/25/24 History vaginal cream folic acid 1 mg tablet 1 mg PO DAILY 08/25/24 08/25/24 History levocetirizine 5 mg tablet 5 mg PO HS 08/25/24 08/25/24 History lubiprostone 24 mcg capsule 24 mcg PO BID 08/25/24 08/25/24 History mirabegron 50 mg tablet,extended 50 mg PO DAILY 08/25/24 08/25/24 History release 24 hr (Myrbetriq) omeprazole 40 mg capsule,delayed 40 mg PO DAILY 08/25/24 08/25/24 History release topiramate 50 mg tablet 50 mg PO DAILY 08/25/24 08/25/24 History trazodone 100 mg tablet 150 mg PO HS 08/25/24 08/25/24 History acetaminophen 500 mg tablet 1,000 mg (2 x 500 mg) PO Q8 #30 08/31/24 Rx (Tylenol Extra Strength) tabs docusate sodium 100 mg capsule 100 mg PO BID #7 caps 08/31/24 Rx oxycodone 5 mg tablet 5 mg PO Q6H PRN pain #2 tabs 08/31/24 Rx polyethylene glycol 3350 17 gram 17 g PO TID #30 ea 08/31/24 Rx oral powder packet (Miralax) Hospital Stay Data Consultations 08/25/24 20:53 ED Decision to Admit Stat 08/26/24 08:00 Consult Orthopedic Surgery Routine Procedures Performed Operation Date: 08/26/24 11:10 Actual Procedures p Bilateral Percutaneous Pinning of Hips(Bilateral) - Yohan Martinez DO Diagnostic Imagining Performed Cervical Spine CT 08/25/24 18:30 Exam(s): CT C SPINE EXAM: CT Cervical Spine Without Intravenous Contrast CLINICAL HISTORY: Reason for exam: fall. TECHNIQUE: Axial computed tomography images of the cervical spine without intravenous contrast. CTDI is 25.45 mGy and DLP is 537.91 mGy-cm. Automated exposure control was utilized for the study. A dose lowering technique was utilized adhering to the principles of ALARA. COMPARISON: 04/21/24 FINDINGS: Vertebrae: No acute fracture or malalignment. Discs/spinal canal/neural foramina: No acute process. Degenerative changes as before Soft tissues: Unremarkable. IMPRESSION: No acute fracture or malalignment. Electronically signed by: Gaviota Aparicio M.D. 08/25/24 20:29 PM Chest X-Ray 08/25/24 18:30 Exam(s): XR CXR 1 VIEW EXAM: XR Chest, 1 View CLINICAL HISTORY: Reason for exam: weakness. TECHNIQUE: Frontal view of the chest. COMPARISON: 04/20/24. FINDINGS: Lungs: Eventration in the diagram, right greater than left . No confluent consolidation or overt edema. Pleural space: No pleural effusion. No pneumothorax. Mediastinum: Unremarkable. Bones/joints: No acute fracture. Left shoulder prosthesis. Upper abdomen: Unremarkable as visualized. IMPRESSION: No acute cardiopulmonary disease. Electronically signed by: Gaviota Aparicio M.D. 08/25/24 19:20 PM Forearm X-Ray 08/25/24 18:30 Exam(s): XR LEFT FOREARM, 2 views EXAM: XR Left Forearm, 2 Views CLINICAL HISTORY: Reason for exam: L skin tear. TECHNIQUE: Frontal and lateral views of the left forearm. COMPARISON: No relevant prior studies available. FINDINGS: Bones/joints: No acute fracture. Osteopenia. Soft tissues: No radiodense foreign body. IMPRESSION: No acute fracture. Electronically signed by: Gaviota Aparicio M.D. 08/25/24 19:[address] 08/25/24 18:30 Exam(s): CT HEAD Without Contrast EXAM: CT Head Without Intravenous Contrast CLINICAL HISTORY: Reason for exam: fall, L forehead contusion. TECHNIQUE: Axial computed tomography images of the head/brain without intravenous contrast. CTDI is 35.65 mGy and DLP is 624.41 mGy-cm. Automated exposure control was utilized for the study. A dose lowering technique was utilized adhering to the principles of ALARA. COMPARISON: 04/22/24. FINDINGS: Brain: No intracranial hemorrhage. Senescent changes with small vessel disease. Ventricles: No hydrocephalus. Bones/joints: No acute fracture. Soft tissues: Soft tissue swelling in the left frontal scalp-forehead. Sinuses: No acute sinusitis. Mastoid air cells: No mastoid effusion. Orbits: Cataract surgery. IMPRESSION: No acute intracranial hemorrhage. Electronically signed by: aGviota Aparicio M.D. 08/25/24 20:26 PM Hip/Pelvis X-Ray 08/25/24 18:30 Exam(s): XR BILATERAL HIP + PELVIS, 1 view EXAM: XR Bilateral Hips With Pelvis When Performed, 2 or 3 Views CLINICAL HISTORY: Reason for exam: b/l hip pain. TECHNIQUE: Three or four views of the bilateral hips with pelvis when performed. COMPARISON: No relevant prior studies available. FINDINGS: Bones/joints: Subtle impacted subcapital femoral neck fractures bilaterally versus projectional artifact. Soft tissues: No radiodense foreign body. Vasculature: Dystrophic calcification and phleboliths in the pelvis. IMPRESSION: Subtle impacted subcapital femoral neck fractures bilaterally versus projectional artifact. Cross-sectional imaging is more sensitive and can further assess as clinically warranted. Electronically signed by: Gaviota Aparicio M.D. 08/25/24 20:[address] 08/25/24 18:30 Exam(s): CT L SPINE EXAM: CT Lumbar Spine Without Intravenous Contrast CLINICAL HISTORY: Reason for exam: pain. TECHNIQUE: Axial computed tomography images of the lumbar spine without intravenous contrast. CTDI is 27.4 mGy and DLP is 827 mGy-cm. Automated exposure control was utilized for the study. A dose lowering technique was utilized adhering to the principles of ALARA. COMPARISON: No relevant prior studies available. FINDINGS: Vertebrae: Unremarkable. No acute fracture. There is diffuse osteopenia throughout the visualized bones. Discs/spinal canal/neural foramina: No acute findings. No spinal canal stenosis. Soft tissues: Unremarkable. IMPRESSION: No evidence of acute lumbar spine pathology. Electronically signed by: Kendy William MD 08/25/24 23:[address] 08/25/24 23:19 EXAM: CT hip LT wo con CLINICAL HISTORY: PAIN AT HIPS EVAL FOR FX TECHNIQUE: Contiguous axial CT images of left hip were obtained without intravenous contrast. Coronal and sagittal reconstructions were likewise performed and indicated to increase the sensitivity for detecting clinically relevant pathology. CT scan was performed according to ALARA (as low as reasonable achievable). COMPARISON: None. FINDINGS: Impacted fracture is noted involving neck of left femur. No dislocation. No destructive osseous lesion. The visualized muscles and tendons appear grossly unremarkable. No cortical destruction to suggest osteomyelitis. No abscess formation. No significant joint effusion. There are no soft tissue masses. Normal subcutaneous adipose space. IMPRESSION: 1. Impacted subcapital left femoral neck fracture. Electronically signed by Lucio Oneill 08-26-2024 01:[address] 08/25/24 23:19 EXAM: CT hip RT wo con CLINICAL HISTORY: PAIN AT HIPS EVAL FOR FX TECHNIQUE: Contiguous axial CT images of right hip were obtained without intravenous contrast. Coronal and sagittal reconstructions were likewise performed and indicated to increase the sensitivity for detecting clinically relevant pathology. CT scan was performed according to ALARA (as low as reasonable achievable). COMPARISON: None. FINDINGS: Linear displaced fracture is noted along the neck of right femur No dislocation. No destructive osseous lesion. The visualized muscles and tendons appear grossly unremarkable. No cortical destruction to suggest osteomyelitis. No abscess formation. No significant joint effusion. There are no soft tissue masses. Normal subcutaneous adipose space. IMPRESSION: Linear displaced fracture is noted along the neck of right femur. Electronically signed by Lucio Oneill 08-26-2024 12:59 AM Hip X-Ray 08/26/24 00:00 FL hip RT 2-3V CLINICAL HISTORY: B/L HIP PINNING COMPARISON STUDY: Right femur radiographs August 26, 2024. FLUOROSCOPY TIME: 159.2 seconds. Ka,r: 21.65 mGy FLUOROSCOPIC IMAGES: 11 FINDINGS: Fluoroscopy was provided during pinning of the right femoral neck fracture with 3 cannulated screws. Fracture is nondisplaced. Hardware is intact. IMPRESSION: Fluoroscopy provided during pinning of the right femoral neck fracture. ACT 112: Negative or not required by law. Electronically signed by: Darin Calhoun M.D. 08/27/2024 8:46 AM Hip X-Ray 08/26/24 00:00 FL hip LT 2-3V CLINICAL HISTORY: B/L HIP PINNING COMPARISON STUDY: Status post left hip surgery FLUOROSCOPY TIME: 153.5 seconds FLUOROSCOPY IMAGES: 11 EXPOSURE DOSE: 24.03 mGy FINDINGS: Status post placement of 3 cannulated screws fixating the acute left femoral neck fracture. The hardware appears intact. Satisfactory alignment. IMPRESSION: Fluoroscopic assistance as above. ACT 112: Negative or not required by law. Electronically signed by: Jordin Cruz M.D. 08/27/2024 7:19 AM Femur X-Ray 08/26/24 08:06 XR femur LT 2V routine HISTORY: 68 years-old Female hip fracture COMPARISON: CT 08/26/2024 TECHNIQUE: 2 views of the left femur FINDINGS: There is an acute comminuted and impacted subcapital/transcervical left femoral fracture. No dislocation. Mild to moderate osteoarthritis of the hip. IMPRESSION: Acute, comminuted and impacted transcervical/subcapital femoral neck fracture. ACT 112: Negative or not required by law. The above report was generated using voice recognition software. It may contain grammatical, syntax or spelling errors. Electronically signed by: Jordin Cruz M.D. 08/26/2024 9:21 AM Femur X-Ray 08/26/24 08:06 XR femur RT 2V routine CLINICAL HISTORY: Hip fracture. COMPARISON: Right hip radiographs August 25, [address] of the right hip August 26, 2024. FINDINGS: Alignment of an acute impacted right femoral neck fracture is similar to prior radiographs and CT. The fracture is not significantly displaced. No additional fractures are present. Lateral plate and screw fixation within the proximal right tibia is partially imaged. IMPRESSION: Acute impacted right femoral neck fracture. Fracture not significantly displaced. ACT 112: Negative or not required by law. Electronically signed by: Darin Calhoun M.D. 08/26/2024 9:09 AM Shoulder X-Ray 08/26/24 08:10 XR shoulder LT min 2V routine HISTORY: 68 years-old Female pain acute left shoulder pain COMPARISON: Chest radiograph 08/25/2024 TECHNIQUE: 2 views of the left shoulder FINDINGS: Reverse left shoulder arthroplasty demonstrates satisfactory alignment. No acute fracture, dislocation or evidence of hardware loosening. Mild to moderate AC joint osteoarthritis. Chronic appearing lateral left rib fractures. IMPRESSION: 1. No acute fracture or dislocation. 2. Unremarkable appearance of the reverse shoulder arthroplasty. ACT 112: Negative or not required by law. The above report was generated using voice recognition software. It may contain grammatical, syntax or spelling errors. Electronically signed by: Jordin Cruz M.D. 08/26/2024 9:18 AM Hip/Pelvis X-Ray 08/26/24 20:29 Exam(s): XR BILATERAL HIP + PELVIS, 2-3 views EXAM: XR Bilateral Hips With Pelvis When Performed, 4 or More Views CLINICAL HISTORY: Reason for exam: postop. TECHNIQUE: Four or more views of the bilateral hips with pelvis when performed. COMPARISON: Pelvis x-ray 08/25/24. FINDINGS: Bones/joints: Interval ORIF with 3 pins in each hip. No new acute fracture. No dislocation. Soft tissues: Severe fecal loading of the colon. IMPRESSION: 1. Interval bilateral hip pinning. 2. No new fracture or complicating feature.. Electronically signed by: Floridalma Agrawal M.D. 08/27/24 00:34 AM Pending Results Patient Have Any Pending Studies at Discharge: No Discharge Instructions Given to Patient (Per Discharging Provider) MEDICATION CHANGES: Tylenol 1,000mg by mouth three times daily. Oxycodone 5mg every 6 hours as needed for moderate to severe pain. Docusate sodium 100mg by mouth twice daily for constipation related to pain medications. This may need adjusted based on daily bowel habits. Miralax 17g three times daily for constipation related to pain medications. SUMMARY OF TEST RESULTS: You were admitted to hospital due to a fall and bilateral hip fractures. You underwent a surgical procedure to repair the fracture by Dr. Martinez. You did have difficulty moving bowels due to pain medications, but on day of discharge you had a bowel movement. You are being discharged to rehab to strengthen your lower extremities. PENDING TEST RESULTS: None RECOMMENDATIONS FOR FOLLOW-UP: Please follow up with Dr. Edu Torre upon discharge from rehab. Please follow up with orthopedics in 2 weeks from discharge. Continue all medications as prescribed. OTHER INSTRUCTIONS: Seek medical attention if you have: * temperature above 101 * chest pain or trouble breathing * abdominal pain, nausea, vomiting * diarrhea, dark stools or bloody stools * any unanswered questions or concerns Call 911 if symptoms are severe. Please take good care of yourself. It has been a pleasure taking care of you. Please take care of yourself. If you have any questions regarding your recent hospitalization please contact [facility] and [facility] @ [phone]. Total Time Total Time Spent Total Time Spent (In Minutes): 45 minutes Supervising Physician Co-Signing Physician Notes I have seen and discussed the case with the collaborating advanced practitioner. I agree with the above PN. I have reviewed and confirmed the patients medical history, the findings on physical examination, and the patients diagnosis and treatment plan with Joan HAWKINS and agree with the information documented. Patient s/p bilateral hip pinning.Labs reviewed. Patient doing well with PT. Stable for discharge. GENERAL APPEARANCE: [id number] appearing woman HEENT: NC, AT. MMM. EOMI, clear conjunctiva, oropharynx clear. NECK: Supple without lymphadenopathy. No stiffness or restricted ROM. HEART: Normal rate and regular rhythm, normal S1/S1, no m/r/g LUNGS: CTAB, moving air well. No crackles or wheezes are heard. ABDOMEN: Soft, nontender, nondistended with good bowel sounds heard.. EXTREMITIES: Without cyanosis, clubbing or edema. NEUROLOGICAL: Grossly nonfocal. Alert and oriented, moving all 4 extremities. CN not formally tested but appear grossly intact : I spent a total of 5minutes coordinating, documenting, and providing care for this patient excluding time spent in the performance of separately billed services. All of the aforementioned completed outside of collaborating with the assigned advanced practitioner for a full treatment plan. I have reviewed the advanced practitioner's documentation, and I agree with, and take responsibility for the plan of care
[2024-08-31] MEDS: HYDROmorphone INJ 0.5 MG/0.5 ML SYR IV PRN (12:07)
[2024-08-31 13:29] VITALS: BP 142/72
== END 2024-08-31 13:59 | DRG 481 ==
LOC: ED 18:06 → 3W 21:42